=== PATIENT | male | born 1975 | race African-American/Black ===

== ENCOUNTER 2016-08-19 17:02 | Emergency (ER) | payer SELFPAY ==
[2016-08-19] MEDS ORDERED: NORMAL SALINE 1000 ML 1,000 ML IV PRN (17:12)
--- NOTE | 2016-08-19 17:14 | ER Document Report ---
ED Medical Screen (RME) - General Stated Complaint: BREATHING DIFFICULTY,BLOOD PRESSURE ISSUE Notes: Shortness of breath high blood pressure for several days I greeted and performed a rapid initial assessment of this patient. Comprehensive ED assessment and evaluation of the patient, analysis of test results and completion of the medical decision making process will be conducted by additional ED providers. TRAVEL OUTSIDE OF THE [place] IN LAST 30 DAYS: No - Related Data Allergies/Adverse Reactions: No Known Allergies Allergy (Verified 08/19/16 17:13) Past Medical History - Past Medical History Cardiac Medical History: Reports: Hx Hypertension Musculoskeltal Medical History: Denies Hx Arthritis, Denies Hx Gout - Immunizations Hx Diphtheria, Pertussis, Tetanus Vaccination: Yes Physical Exam - Vital signs Vitals: Temp Pulse Resp BP Pulse Ox 98.5 F 110 H 24 H 188/121 H 94 08/19/16 17:10 08/19/16 17:10 08/19/16 17:10 08/19/16 17:10 08/19/16 17:10 Course - Vital Signs Vital signs: Temp Pulse Resp BP Pulse Ox 98.5 F 110 H 24 H 188/121 H 94 08/19/16 17:10 08/19/16 17:10 08/19/16 17:10 08/19/16 17:10 08/19/16 17:10
[2016-08-19 17:47] LABS: APPEARANCE,URINE CLEAR; BILIRUBIN,URINE NEGATIVE (NEGATIVE); GLUCOSE, URINE NEGATIVE (NEGATIVE); KETONES,URINE NEGATIVE (NEGATIVE); LEUKOCYTE ESTERASE,URINE MODERATE (NEGATIVE); NITRITE,URINE NEGATIVE (NEGATIVE); PROTEIN,URINE 100 mg/dL (NEGATIVE); URINE SPECIFIC GRAVITY 1.003
[2016-08-19 17:50] LABS: ABSOLUTE BASOPHILS # (AUTO) 0.1 10^3/uL (0.0-0.2); ABSOLUTE EOSINOPHILS # (AUTO) 0.7 10^3/uL (0.0-0.6); ABSOLUTE LYMPHOCYTES (AUTO) 1.7 10^3/uL (0.5-4.7); ABSOLUTE MONOCYTES (AUTO) 1.3 10^3/uL (0.1-1.4); ABSOLUTE NEUT (AUTO) 3.9 10^3/uL (1.7-8.2); EOSINOPHILS % (AUTO) 8.8 % (0-6); HEMATOCRIT 42.8 % (37.9-51.0); HEMOGLOBIN 14.3 g/dL (13.5-17.0); HGB HCT DIFFERENCE 0.1; LYMPHOCYTES % (AUTO) 22.1 % (13-45); MEAN CORPUSCULAR HEMOGLOBIN 28.4 pg (27.0-33.4); MEAN CORPUSCULAR HGB CONC 33.4 g/dL (32.0-36.0); MEAN CORPUSCULAR VOLUME 85 fl (80-97); MONOCYTES % (AUTO) 17.3 % (3-13); RED BLOOD COUNT 5.04 10^6/uL (4.35-5.55); RED CELL DISTRIBUTION WIDTH 14.1 % (11.5-14.0); SEGMENTED NEUTROPHILS % (AUTO) 50.8 % (42-78); WHITE BLOOD COUNT 7.8 10^3/uL (4.0-10.5)
[2016-08-19 18:01] LABS: URINE BARBITURATES SCREEN NEGATIVE; URINE METHADONE SCREEN NEGATIVE; URINE PHENCYCLIDINE SCREEN NEGATIVE
[2016-08-19 18:02] LABS: ALANINE AMINOTRANSFERASE 63 U/L (21-72); ALKALINE PHOSPHATASE 91 U/L (38-126); ANION GAP 14 (5-19); ASPARTATE AMINO TRANSFERASE 68 U/L (17-59); BILIRUBIN,TOTAL 1.1 mg/dL (0.2-1.3); BLOOD UREA NITROGEN 7 mg/dL (7-20); CALCIUM 8.6 mg/dL (8.4-10.2); CARBON DIOXIDE 33 mmol/L (22-30); CHLORIDE 95 mmol/L (98-107); CREATININE RESULT 0.87 mg/dL (0.52-1.25); GLUCOSE 100 mg/dL (75-110); LIPASE 58.8 U/L (23-300); POTASSIUM 3.7 mmol/L (3.6-5.0); SODIUM 141.6 mmol/L (137-145); TOTAL PROTEIN 8.4 g/dL (6.3-8.2)
[2016-08-19] MEDS ORDERED: LEVOFLOXACIN 750 MG TABLET PO ONE (18:19)
[2016-08-19] MEDS ORDERED: IPRATROPIUM/ALBUTEROL 0.5-2.5 MG/3 ML AMPUL NEB ONE (18:19)
[2016-08-19] MEDS ORDERED: ALBUTEROL SULFATE 0.083% NEB 2.5 MG/3 ML AMPUL NEB ONE ×2 (18:19→20:02)
--- NOTE | 2016-08-19 18:21 | ER Document Report ---
ED Respiratory Problem - General Chief Complaint: Shortness Of Breath Stated Complaint: BREATHING DIFFICULTY,BLOOD PRESSURE ISSUE Time seen by provider: 18:21 Mode of Arrival: Ambulatory Information source: Patient TRAVEL OUTSIDE OF THE [place] IN LAST 30 DAYS: No - HPI Patient complains to provider of: Cough, Hurts to breath, Short of breath Onset: Other - 3 days Duration: Worse/persistent Quality of pain: Achy Severity: Moderate Pain Level: 3 Short of Breath: Mild Chest pain/discomfort: Tightness Cough: Productive Sputum amount: Small Sputum color: Yellow Sputum consistency: Mucoid Associated symptoms: Chills, Congestion, Cough, Difficulty breathing, Fever - Subjective, Short of breath Similar symptoms previously: No Recently seen / treated by doctor: No Notes: Patient is a 41-year-old male with no diagnosed past medical history, who quit smoking approximately one year ago, presents to the emergency room for complaints of cough, cold, congestion, difficulty breathing, chest tightness and subjective fevers that's been going on for the past 2-3 days, patient reports his cough is productive of yellow sputum at times, reports nasal congestion and chest congestion with painful cough, he denies any sick contacts , no recent traveling, no history of coronary artery disease - Related Data Allergies/Adverse Reactions: No Known Allergies Allergy (Verified 08/19/16 17:13) Past Medical History - General Information source: Patient - Social History Smoking Status: Former Smoker Chew tobacco use (# tins/day): No Frequency of alcohol use: None Drug Abuse: None Family History: Reviewed & Not Pertinent Patient has suicidal ideation: No Patient has homicidal ideation: No - Past Medical History Cardiac Medical History: Reports: Hx Hypertension Renal/ Medical History: Denies: Hx Peritoneal Dialysis Musculoskeltal Medical History: Denies Hx Arthritis, Denies Hx Gout - Immunizations Hx Diphtheria, Pertussis, Tetanus Vaccination: Yes Review of Systems - Review of Systems Constitutional: See HPI EENT: No symptoms reported Cardiovascular: No symptoms reported Respiratory: See HPI Gastrointestinal: No symptoms reported Genitourinary: No symptoms reported Male Genitourinary: No symptoms reported Musculoskeletal: No symptoms reported Skin: No symptoms reported Hematologic/Lymphatic: No symptoms reported Neurological/Psychological: No symptoms reported -: Yes All other systems reviewed and negative Physical Exam - Vital signs Vitals: Temp Pulse Resp BP Pulse Ox 98.5 F 110 H 24 H 188/121 H 94 08/19/16 17:10 08/19/16 17:10 08/19/16 17:10 08/19/16 17:10 08/19/16 17:10 Interpretation: Hypertensive, Tachycardic, Tachypneic - General General appearance: Appears well, Alert - HEENT Head: Normocephalic, Atraumatic Eyes: Normal Pupils: PERRL - Respiratory Respiratory status: Tachypnea Chest status: Nontender Breath sounds: Nonproductive cough, Rhonchi, Wheezing Chest palpation: Normal - Cardiovascular Rhythm: Regular Heart sounds: Normal auscultation Murmur: No - Abdominal Inspection: Obese Distension: No distension Bowel sounds: Normal Tenderness: Nontender Organomegaly: No organomegaly - Back Back: Normal, Nontender - Extremities General upper extremity: Normal inspection, Nontender, Normal color, Normal ROM , Normal temperature General lower extremity: Normal inspection, Nontender, Normal color, Normal ROM , Normal temperature, Normal weight bearing. No: Gael's sign - Neurological Neuro grossly intact: Yes Cognition: Normal Orientation: AAOx4 [place] Coma Scale Eye Opening: Spontaneous [place] Coma Scale Verbal: Oriented [place] Coma Scale Motor: Obeys Commands [place] Coma Scale Total: 15 Speech: Normal Motor strength normal: LUE, RUE, LLE, RLE Sensory: Normal - Psychological Associated symptoms: Normal affect, Normal mood - Skin Skin Temperature: Warm Skin Moisture: Dry Skin Color: Normal Course - Re-evaluation Re-evalutation: 08/19/16 21:32 Patient reports feeling much better, lungs are clear to auscultation, symptoms have improved significantly, I reviewed lab and imaging findings with him at bedside which are consistent with pneumonia and a urinary tract infection, patient likely has a history of COPD from being a former smoker which was agitated from the current infection he is experiencing, he does report feeling agitated that the IV is still in and that he is still here and states he is ready to go home, therefore he will be discharged with several prescriptions for treatment of his pneumonia and urinary tract infection, provided with an albuterol inhaler here in the emergency room, and information for follow-up, patient was advised to return if symptoms worsen in any way, patient acknowledges understanding and agreement with this plan - Vital Signs Vital signs: Temp Pulse Resp BP Pulse Ox 98.5 F 110 H 24 H 188/121 H 94 08/19/16 17:10 08/19/16 17:10 08/19/16 17:10 08/19/16 17:10 08/19/16 17:10 - Laboratory Result Diagrams: 08/19/16 17:20 08/19/16 17:20 Laboratory results interpreted by me: 08/19/16 08/19/16 08/19/16 17:20 17:20 17:20 RDW 14.1 H Monocytes % 17.3 H Eosinophils % 8.8 H Absolute Eosinophils 0.7 H Chloride 95 L Carbon Dioxide 33 H AST 68 H NT-Pro-B Natriuret Pep Total Protein 8.4 H Urine Protein 100 H Urine Blood SMALL H Urine Urobilinogen 2.0 H Ur Leukocyte Esterase MODERATE H 08/19/16 17:20 RDW Monocytes % Eosinophils % Absolute Eosinophils Chloride Carbon Dioxide AST NT-Pro-B Natriuret Pep 270 H Total Protein Urine Protein Urine Blood Urine Urobilinogen Ur Leukocyte Esterase - Diagnostic Test Radiology reviewed: Image reviewed, Reports reviewed - EKG Interpretation by Me EKG shows normal: Sinus rhythm Rate: Tachycardia When compared to previous EKG there are: No significant change - 05/20/2015 Discharge - Discharge Clinical Impression: Pneumonia Qualifiers: Pneumonia type: due to unspecified organism Laterality: right Lung location: middle lobe of lung Qualified Code(s): J18.1 - Lobar pneumonia, unspecified organism Urinary tract infection Qualifiers: Urinary tract infection type: site unspecified Hematuria presence: without hematuria Qualified Code(s): N39.0 - Urinary tract infection, site not specified Hypertension Qualifiers: Hypertension type: essential hypertension Qualified Code(s): I10 - Essential ( primary) hypertension Condition: Stable Disposition: HOME, SELF-CARE Instructions: Urinary Tract Infection ([facility]), High Blood Pressure, Requiring Treatment ([facility]), High Blood Pressure ([facility]), Pneumonia ([facility]), Chronic Obstructive Lung Disease ([facility]), Family Physicians / Practices Additional Instructions: Follow up with your primary care provider in one to 2 days. Return to the emergency room immediately if symptoms worsen or any additional concerns. Prescriptions: Albuterol Sulfate [Proair HFA Inhalation Aerosol 8.5 gm MDI] 1 puff IH Q4 PRN # 1 mdi PRN Reason: Hydrochlorothiazide 25 mg PO DAILY #30 tablet Levofloxacin [Levaquin] 750 mg PO DAILY #7 tablet Prednisone 40 mg PO DAILY #8 tablet
[2016-08-19] MEDS ORDERED: METHYLPREDNISOLONE INJ 125 MG/2 ML SDV IV ONE (20:02)
[2016-08-19] MEDS ORDERED: BENZONATATE 100 MG CAPSULE PO ONE (20:40)
[2016-08-19] MEDS ORDERED: ALBUTEROL SULFATE HFA (90 MCG/PUFF) 8 GM MDI (1 MDI/ER DISP) IH SCH (22:00)
[2016-08-19 22:04] VITALS: BP 178/113
--- NOTE | 2016-08-20 10:16 | EKG REPORT ---
SEVERITY:- ABNORMAL ECG - SINUS TACHYCARDIA PROBABLE LEFT ATRIAL ABNORMALITY BORDERLINE R WAVE PROGRESSION, ANTERIOR LEADS BORDERLINE T ABNORMALITIES, INFERIOR LEADS BORDERLINE PROLONGED QT INTERVAL : Confirmed by: Lesley Shipman MD 20-Aug-2016 10:15:28
== END 2016-08-19 21:55 | disposition home or self-care (01) ==
LOC: ER 17:02
DX: J18.1 Lobar pneumonia, unspecified organism (principal); N39.0 Urinary tract infection, site not specified; I10 Essential (primary) hypertension; R06.02 Shortness of breath; R06.00 Dyspnea, unspecified; E66.9 Obesity, unspecified
CPT/HCPCS: 93005; 94640 ×2; 99285; 96374; 36415; 87040; 83690; 85025; 80053; 81001; 84484; 80307; 83880; 71020; 93010; J2930; J7030; J3490; J7620

== ENCOUNTER 2016-09-21 10:36 | Inpatient (IN) | payer SELFPAY ==
--- NOTE | 2016-09-21 10:41 | ER Document Report ---
ED Medical Screen (RME) - General Stated Complaint: DIFFICULTY BREATHING Notes: Patient is a 41-year-old male who was recently diagnosed with lobar pneumonia back on 08/19/2016. Was discharged home on the Levaquin and prednisone. Patient to complete his course of antibiotics. Patient presents emergency department today complaining of shortness of breath since yesterday not responding to albuterol inhaler. He shouldn't is tachycardic in the 120s, satting 89-91% on room air. Lungs clear to auscultation bilaterally but limited examination due to triage. Patient labored breathing but able to speak in full sentences. Patient is alert and oriented 4. I have greeted and performed a rapid initial assessment of this patient. A comprehensive ED assessment and evaluation of the patient, analysis of test results and completion of the medical decision making process will be conducted by additional ED providers. TRAVEL OUTSIDE OF THE [place] IN LAST 30 DAYS: No - Related Data Allergies/Adverse Reactions: No Known Allergies Allergy (Verified 08/19/16 17:13) Past Medical History - Past Medical History Cardiac Medical History: Reports: Hx Hypertension Renal/ Medical History: Denies: Hx Peritoneal Dialysis Musculoskeltal Medical History: Denies Hx Arthritis, Denies Hx Gout - Immunizations Hx Diphtheria, Pertussis, Tetanus Vaccination: Yes
[2016-09-21] MEDS ORDERED: METHYLPREDNISOLONE INJ 125 MG/2 ML SDV IV ONE (10:42)
[2016-09-21] MEDS ORDERED: IPRATROPIUM/ALBUTEROL 0.5-2.5 MG/3 ML AMPUL NEB ONE (10:42)
[2016-09-21] MEDS ORDERED: ALBUTEROL SULFATE 0.083% NEB 2.5 MG/3 ML AMPUL NEB SCH (10:57)
[2016-09-21 11:21] LABS: VENOUS BLOOD BASE EXCESS 5.5 mmol/L; VENOUS BLOOD PCO2 53.4 mmHg (35-63); VENOUS BLOOD PH 7.4 (7.30-7.42)
[2016-09-21 11:24] LABS: ABSOLUTE BASOPHILS # (AUTO) 0.1 10^3/uL (0.0-0.2); ABSOLUTE EOSINOPHILS # (AUTO) 0.1 10^3/uL (0.0-0.6); ABSOLUTE LYMPHOCYTES (AUTO) 0.7 10^3/uL (0.5-4.7); ABSOLUTE MONOCYTES (AUTO) 1.4 10^3/uL (0.1-1.4); ABSOLUTE NEUT (AUTO) 6.6 10^3/uL (1.7-8.2); BASOPHILS % (AUTO) 0.8 % (0-2); EOSINOPHILS % (AUTO) 1.5 % (0-6); HEMATOCRIT 40.3 % (37.9-51.0); HEMOGLOBIN 13.6 g/dL (13.5-17.0); HGB HCT DIFFERENCE 0.5; LYMPHOCYTES % (AUTO) 7.3 % (13-45); MEAN CORPUSCULAR HEMOGLOBIN 28.3 pg (27.0-33.4); MEAN CORPUSCULAR HGB CONC 33.7 g/dL (32.0-36.0); MEAN CORPUSCULAR VOLUME 84 fl (80-97); MONOCYTES % (AUTO) 15.4 % (3-13); RED CELL DISTRIBUTION WIDTH 14.3 % (11.5-14.0); WHITE BLOOD COUNT 8.9 10^3/uL (4.0-10.5)
[2016-09-21 11:38] LABS: ALANINE AMINOTRANSFERASE 58 U/L (21-72); ALBUMIN 4.3 g/dL (3.5-5.0); ALKALINE PHOSPHATASE 82 U/L (38-126); ANION GAP 12 (5-19); ASPARTATE AMINO TRANSFERASE 64 U/L (17-59); BILIRUBIN,TOTAL 0.9 mg/dL (0.2-1.3); BLOOD UREA NITROGEN 11 mg/dL (7-20); CALCIUM 9.1 mg/dL (8.4-10.2); CARBON DIOXIDE 33 mmol/L (22-30); CHLORIDE 91 mmol/L (98-107); CREATININE RESULT 1.08 mg/dL (0.52-1.25); GLUCOSE 111 mg/dL (75-110); POTASSIUM 3.6 mmol/L (3.6-5.0); SODIUM 135.8 mmol/L (137-145); TOTAL PROTEIN 8.1 g/dL (6.3-8.2)
--- NOTE | 2016-09-21 11:40 | ER Document Report ---
ED Respiratory Problem - General Time seen by provider: 11:30 Mode of Arrival: Wheelchair Information source: Patient TRAVEL OUTSIDE OF THE [place] IN LAST 30 DAYS: No - HPI Associated symptoms: Cough, Difficulty breathing <KATHY HAMILTON - Last Filed: 09/21/16 12:10> <MAYILATRICE - Last Filed: 09/21/16 13:08> - General Chief Complaint: Breathing Difficulty Stated Complaint: DIFFICULTY BREATHING Notes: Patient is a 41-year-old male presenting to the emergency department with complaints of difficulty breathing. Patient states that he started coughing a few days ago and he progressively became more short of breath. Patient states he had some white sputum. Patient denies any asthma, COPD, CHF history. Patient states he does not smoke and has not used any drugs. Patinet also denies any chest pain. Patient states he is hypertensive. Patient was 89% oxygen saturation on room air upon arrival to the ED. During exam patient is tachycardic at 122 bmp, hypertensive 217/146, tachypneic, and has a low grade fever 99 F. Patient has no known allergies. (KATHY HAMILTON) - Related Data Allergies/Adverse Reactions: No Known Allergies Allergy (Verified 09/21/16 10:41) Past Medical History - General Information source: Patient - Social History Smoking Status: Never Smoker Cigarette use (# per day): No Chew tobacco use (# tins/day): No Frequency of alcohol use: None Drug Abuse: None Family History: None Patient has suicidal ideation: No Patient has homicidal ideation: No - Past Medical History Cardiac Medical History: Reports: Hx Hypertension - Immunizations Hx Diphtheria, Pertussis, Tetanus Vaccination: Yes <KATHY HAMILTON - Last Filed: 09/21/16 12:10> Review of Systems - Review of Systems Constitutional: No symptoms reported EENT: No symptoms reported Cardiovascular: No symptoms reported Respiratory: See HPI, Cough, Short of breath Gastrointestinal: No symptoms reported Genitourinary: No symptoms reported Male Genitourinary: No symptoms reported Musculoskeletal: No symptoms reported Skin: No symptoms reported Hematologic/Lymphatic: No symptoms reported Neurological/Psychological: No symptoms reported -: Yes All other systems reviewed and negative <KATHY HAMILTON - Last Filed: 09/21/16 12:10> Physical Exam - Vital signs Interpretation: Hypertensive - 217/146, Tachycardic - 122, Hypoxic, Tachypneic, Febrile - low grade fever 99 F - General General appearance: Alert In distress: Moderate - HEENT Head: Normocephalic, Atraumatic Eyes: Normal Pupils: PERRL Mucous membranes: Moist - Respiratory Respiratory status: No respiratory distress Chest status: Nontender Breath sounds: Normal Chest palpation: Normal - Cardiovascular Rhythm: Regular Heart sounds: Normal auscultation Murmur: No - Back Back: Normal, Nontender - Extremities General upper extremity: Normal inspection, Normal ROM, Normal strength General lower extremity: Edema - 2+ pitting edema bilaterally, Normal ROM, Normal strength - Neurological Neuro grossly intact: Yes Cognition: Normal Orientation: AAOx4 [place] Coma Scale Eye Opening: Spontaneous [place] Coma Scale Verbal: Oriented [place] Coma Scale Motor: Obeys Commands [place] Coma Scale Total: 15 Speech: Normal - Psychological Associated symptoms: Normal affect, Normal mood - Skin Skin Temperature: Warm Skin Moisture: Dry <KATHY HAMILTON - Last Filed: 09/21/16 12:10> Course - Laboratory Result Diagrams: 09/21/16 11:00 09/21/16 11:00 <KATHY HAMILTON - Last Filed: 09/21/16 12:10> - Laboratory Result Diagrams: 09/21/16 11:00 09/21/16 11:00 <LATRICE SEE - Last Filed: 09/21/16 13:08> - Re-evaluation Re-evalutation: 09/21/16 12:20 Patient presents complaining of sudden onset of shortness of breath last night. He says that it got worse throughout the night to the point where he felt like he couldn't breathe. He denies any chest pain. Patient states he has a history of hypertension and will receive some blood pressure medicine from an ER doctor. He does not have a primary doctor. The patient denies any fevers chills or sweats. He said yesterday he was coughing up some white phlegm. The patient denies any history of CHF. Denies any history of COPD or asthma. He quit smoking 2 years ago. He denies any history of heart attack or stroke. Patient is hypoxic with significantly elevated blood pressure. He is tachycardic. His lungs sound clear. I do not feel that this represents a COPD exacerbation. Patient's symptoms seem most consistent with hypertensive emergency with congestive heart failure. We will treat with nitrates and start patient on BiPAP. 09/21/16 12:58 09/21/16 13:[address] Cristi Gandhi who agrees patient should be admitted to the ICU. I spoke with the charge nurse as the patient was not started on the BiPAP just yet and they are working on that. Dr. Gandhi recommends hydralazine 10 mg IV as it sounds like the patient is in diastolic heart failure. We'll start this in the emergency department. (LATRICE SEE) - Laboratory Laboratory results interpreted by me: 09/21/16 09/21/16 09/21/16 11:00 11:00 11:00 RDW 14.3 H Lymphocytes % 7.3 L Monocytes % 15.4 H Sodium 135.8 L Chloride 91 L Carbon Dioxide 33 H Glucose 111 H AST 64 H NT-Pro-B Natriuret Pep 160 H (KATHY HAMILTON) (LATRICE SEE) - EKG Interpretation by Me Additional EKG results interpreted by me: 09/21/16 12:57 EKG: Heart rate 117, sinus tachycardia, normal axis, left ventricular hypertrophy, no ST elevations, flattening of ST segments in inferior and lateral leads, as interpreted by me. Compared to EKG of 08/19/16, no significant change. (LATRICE SEE) Discharge <KATHY HAMILTON - Last Filed: 09/21/16 12:10> - Discharge Admitting Provider: Hospitalist - Dr. Dusty Reyes Unit Admitted: ICU <LATRICE SEE - Last Filed: 09/21/16 13:08> - Discharge Clinical Impression: Hypertensive emergency Congestive heart failure (CHF) Qualifiers: Congestive heart failure type: combined Congestive heart failure chronicity: acute Qualified Code(s): I50.41 - Acute combined systolic (congestive) and diastolic (congestive) heart failure Respiratory failure Qualifiers: Chronicity: acute Respiratory failure complication: hypoxia Qualified Code(s): J96.01 - Acute respiratory failure with hypoxia Condition: Serious Disposition: ADMITTED INPATIENT Scribe Attestation: 09/21/16 12:23 I personally performed the services described in the documentation, reviewed and edited the documentation which was dictated to the scribe in my presence, and it accurately records my words and actions. (LATRICE SEE) Scribe Documentation - Scribe Written by Joyce:: Kathy Hamilton 09/21/16 12:07 acting as scribe for :: Naik <KATHY HAMILTON - Last Filed: 09/21/16 12:10>
[2016-09-21] MEDS ORDERED: ASPIRIN 81 MG TABLET, CHEWABLE PO ONE (11:44)
[2016-09-21] MEDS ORDERED: NITROGLYCERIN 2% OINTMENT 1 GM PACKET TP ONE (11:44)
[2016-09-21] MEDS: NITROGLYCERIN 0.4 MG/TAB 25 TAB/BOTTLE SL PRN ×3 (12:20→13:09)
--- NOTE | 2016-09-21 12:55 | EKG REPORT ---
SEVERITY:- ABNORMAL ECG - SINUS TACHYCARDIA CONSIDER LEFT VENTRICULAR HYPERTROPHY : Confirmed by: Mandy Stauffer 21-Sep-2016 12:55:12
[2016-09-21] MEDS ORDERED: HYDRALAZINE HCL INJ/PF 20 MG/1 ML SDV IV ONE (13:05)
[2016-09-21] MEDS ORDERED: ACETAMINOPHEN 325 MG TABLET PO ONE (13:12)
[2016-09-21] MEDS ORDERED: ACETAMINOPHEN 325 MG TABLET PO PRN (13:47)
[2016-09-21] MEDS ORDERED: ONDANSETRON 4 MG TAB.RAPDIS PO PRN (13:47)
[2016-09-21] MEDS ORDERED: ONDANSETRON HCL INJ/PF 4 MG/2 ML SDV IV PRN (13:47)
[2016-09-21] MEDS ORDERED: METOPROLOL SUCCINATE 50 MG TAB.SR.24H PO ONE (14:30)
[2016-09-21] MEDS ORDERED: REGADENOSON INJ 0.4 MG/5 ML DISP.SYRIN IV ONE (14:38)
--- NOTE | 2016-09-21 15:02 | PDOC H&P ---
History of Present Illness Admission Date/PCP: 09/21/16 14:35 Patient complains of: Shortness of breath History of Present Illness: NORBERTO CRISOSTOMO is a 41 year old male who has a history of hypertension who presents with sudden onset of shortness of breath. The patient reports that he woke up this morning felt short of breath and had a cough productive some white sputum. The patient presented to emergency room was found to have a blood pressure of 240/120. Patient denies to me that he is had any chest pain. The patient normally takes lisinopril/hydrochlorothiazide. He also does report having some orthopnea today. He denies any lower extremity edema. The patient denies any fevers or chills. Prior to this morning he has not had any problems with dyspnea on exertion or orthopnea or PND. Past Medical History Cardiac Medical History: Reports: Hypertension Pulmonary Medical History: Reports: None EENT Medical History: Reports: None Neurological Medical History: Reports: None Endocrine Medical History: Reports: None Renal/ Medical History: Reports: None Malignancy Medical History: Reports: None GI Medical History: Reports: None Musculoskeltal Medical History: Denies: Arthritis, Gout Skin Medical History: Reports: None Psychiatric Medical History: Reports: None Traumatic Medical History: Reports: None Hematology: Reports: None Infectious Medical History: Reports: None Past Surgical History Past Surgical History: Reports: None Social History Information Source: Patient Lives with: Spouse/Significant other Smoking Status: Never Smoker Frequency of Alcohol Use: Rare Hx Recreational Drug Use: No Drugs: None - Advance Directive Resuscitation Status: Full Code Surrogate healthcare decision maker:: Family History Family History: Mother 67 alive and has diabetes. Father's health history is unknown. Parental Family History Reviewed: Yes Children Family History Reviewed: No Sibling(s) Family History Reviewed.: No Medication/Allergy Home Medications: Oxycodone HCl/Acetaminophen [Percocet 5-325 mg Tablet] 1 - 2 tab PO Q4H PRN #15 tablet 05/20/15 Prednisone [Deltasone 10 mg Tablet] 10 mg PO ASDIR PRN #21 tablet 05/20/15 Clotrimazole [Lotrimin AF] 1 applic TP DAILY #1 cream..g. 08/10/15 Hydrocodone/Acetaminophen [[place] 5-325 mg Tablet] 1 tab PO Q6H PRN #10 tablet Lisinopril/Hydrochlorothiazide [Lisinopril-Hctz 20-12.5 mg Tab] 1 each PO DAILY #30 tablet 08/10/15 Prednisone [Deltasone 10 mg Tablet] 10 mg PO ASDIR PRN #21 tablet 08/10/15 Hydrocodone/Acetaminophen [[place] 7.5-325 Tablet] 1 each PO Q6 PRN #20 tablet 04/21 Ibuprofen [Motrin 800 Mg Tablet] 800 mg PO Q6H #20 tablet 02/12/16 Methocarbamol [Robaxin 500 Mg Tablet] 1,000 mg PO Q6 #30 tablet 02/12/16 Albuterol Sulfate [Proair HFA Inhalation Aerosol 8.5 gm MDI] 1 puff IH Q4 PRN # 1 mdi 08/19/16 Hydrochlorothiazide 25 mg PO DAILY #30 tablet 08/19/16 Levofloxacin [Levaquin] 750 mg PO DAILY #7 tablet 08/19/16 Prednisone 40 mg PO DAILY #8 tablet 08/19/16 Allergies/Adverse Reactions: No Known Allergies Allergy (Verified 09/21/16 10:41) Review of Systems Constitutional: ABSENT: chills, fever(s), headache(s), weight gain, weight loss Eyes: ABSENT: visual disturbances Ears: ABSENT: hearing changes Cardiovascular: PRESENT: as per HPI Respiratory: PRESENT: cough, dyspnea. ABSENT: hemoptysis Gastrointestinal: ABSENT: abdominal pain, constipation, diarrhea, hematemesis, hematochezia, nausea, vomiting Genitourinary: ABSENT: dysuria, hematuria Musculoskeletal: ABSENT: joint swelling Integumentary: ABSENT: rash, wounds Neurological: ABSENT: abnormal gait, abnormal speech, confusion, dizziness, focal weakness, syncope Psychiatric: ABSENT: anxiety, depression, homidical ideation, suicidal ideation Endocrine: ABSENT: cold intolerance, heat intolerance, polydipsia, polyuria Hematologic/Lymphatic: ABSENT: easy bleeding, easy bruising Physical Exam Vital Signs: Temp Pulse Resp BP Pulse Ox 20 97 09/21/16 13:30 09/21/16 13:30 General appearance: PRESENT: no acute distress Head exam: PRESENT: atraumatic, normocephalic Eye exam: PRESENT: conjunctiva pink, EOMI, PERRLA. ABSENT: scleral icterus Ear exam: PRESENT: normal external ear exam Mouth exam: PRESENT: moist, tongue midline Neck exam: ABSENT: carotid bruit, JVD, lymphadenopathy, thyromegaly Respiratory exam: PRESENT: clear to auscultation nitin. ABSENT: rales, rhonchi, wheezes Cardiovascular exam: PRESENT: RRR. ABSENT: diastolic murmur, rubs, systolic murmur Pulses: PRESENT: normal dorsalis pedis pul Vascular exam: PRESENT: normal capillary refill GI/Abdominal exam: PRESENT: normal bowel sounds, soft. ABSENT: distended, guarding, mass, organolmegaly, rebound, tenderness Rectal exam: PRESENT: deferred Extremities exam: ABSENT: calf tenderness, clubbing, pedal edema Neurological exam: PRESENT: alert, awake, oriented to person, oriented to place , oriented to time, oriented to situation Psychiatric exam: PRESENT: appropriate affect, normal mood Skin exam: PRESENT: dry, intact, warm. ABSENT: cyanosis, rash Results Impressions: Chest X-Ray 09/21/16 10:42 IMPRESSION: NO ACUTE RADIOGRAPHIC FINDING IN THE CHEST. Assessment & Plan - Diagnosis (1) Hypertensive emergency Is this a current diagnosis for this admission?: YesPlan: Patient has a history of hypertension but woke up this morning with acute onset of shortness of breath and given his elevated blood pressures is presumed to be acute diastolic dysfunction. We will start the patient on Toprol slow the heart rate and hopefully once the blood pressure comes down his shortness of breath will improve. (2) Congestive heart failure (CHF) Qualifiers: Congestive heart failure type: unspecified congestive heart failure type Congestive heart failure chronicity: acute Qualified Code(s): I50.9 - Heart failure, unspecified Is this a current diagnosis for this admission?: YesPlan: We'll check an echocardiogram. It's presumed that this is acute diastolic dysfunction given the uncontrolled hypertension. (3) Hypertension Qualifiers: Hypertension type: essential hypertension Qualified Code(s): I10 - Essential (primary) hypertension Is this a current diagnosis for this admission?: YesPlan: We'll continue with the lisinopril to chlorothiazide is taking as an outpatient at on Toprol and also give when necessary hydralazine. (4) Respiratory failure Qualifiers: Chronicity: acute Respiratory failure complication: hypoxia Qualified Code(s): J96.01 - Acute respiratory failure with hypoxia Is this a current diagnosis for this admission?: YesPlan: Set most likely secondary to acute hypertensive emergency. We'll continue the BiPAP until his blood pressure decreases. - Time Time Spent: 50 to 70 Minutes - Inpatient Certification Medical Necessity: Need Close Monitoring Due to Risk of Patient Decompensation
[2016-09-21] MEDS ORDERED: HYDRALAZINE HCL INJ/PF 20 MG/1 ML SDV IV PRN (15:37)
[2016-09-21] MEDS ORDERED: ENOXAPARIN SODIUM INJ 120 MG/0.8 ML DISP.SYRIN SUBCUT ONE (16:30)
[2016-09-21] MEDS: GUAIFENESIN/D-METHORPHAN (200-20 MG) SYRUP 10 ML PO PRN (17:02)
[2016-09-21 17:27] LABS: CREATINE KINASE MB 4.01 ng/mL (<4.55); TROPONIN I 0.087 ng/mL
--- NOTE | 2016-09-21 18:22 | XCELERA REPORT ---
[address] [address] Transthoracic Echocardiogram Report Name: NORBERTO CRISOSTOMO Age: 41 yrs Gender: Male : 1975 Patient Status: Inpatient Patient Location: \S\[facility]\S\A Study Date: 09/21/2016 03:12 PM Height: 65 in Weight: 260 lb BSA: 2.2 m2 Procedure: A two-dimensional transthoracic echocardiogram with color flow and Doppler was performed. Study Quality: Technically suboptimal. Reason For Study: DYSPNEA History: DYSPNEA. Ordering Physician: LARISA GRAY Performed By: Landry Patel Interpretation Summary The left ventricle is normal in size. There is normal left ventricular wall thickness. LV EF is > than 60% Left ventricular systolic function is normal. Doppler measurements suggest normal left ventricular diastolic function The left ventricular wall motion is normal. The right ventricle is not well visualized secondary to technical limitations The right ventricle is grossly normal size. The left atrial size is normal. There is no evidence of mitral valve prolapse. There is no vegetation seen on the mitral valve. There is no mitral valve stenosis. There is a mild amount of mitral regurgitation There is no aortic valve stenosis There is no LVOT obstruction. No aortic regurgitation is present. There is no tricuspid stenosis. Probably no TR.Unable to calculate RVSP due to insufficient TR jet. There is no pericardial effusion. MMode/2D Measurements \T\ Calculations RVDd: 2.5 cm LVIDd: 5.3 cm FS: 36.6 % Ao root diam: 3.1 cm IVSd: 1.0 cm LVIDs: 3.4 cm EDV(Teich): 137.4 ml LVPWd: 1.1 cm ESV(Teich): 46.8 ml Ao root area: 7.5 cm2 EF(Teich): 65.9 % LA dimension: 3.8 cm Doppler Measurements \T\ Calculations MV E max juan: MV P1/2t max juan: Ao V2 max: LV V1 max P.7 cm/sec 106.9 cm/sec 155.1 cm/sec 5.6 mmHg MV A max juan: MV P1/2t: 37.5 msec Ao max PG: LV V1 max: 70.7 cm/sec 9.6 mmHg 117.8 cm/sec MV E/A: 1.5 MVA(P1/2t): 5.9 cm2 MV dec slope: 835.0 cm/sec2 MV dec time: 0.13 sec PA V2 max: 113.5 cm/sec PA max P.2 mmHg Left Ventricle The left ventricle is normal in size. There is normal left ventricular wall thickness. LV EF is > than 60%. Left ventricular systolic function is normal. Doppler measurements suggest normal left ventricular diastolic function. The left ventricular wall motion is normal. There is no thrombus. Right Ventricle The right ventricle is not well visualized secondary to technical limitations. The right ventricle is grossly normal size. Atria The right atrium is normal. The left atrial size is normal. Mitral Valve There is no evidence of mitral valve prolapse. There is no vegetation seen on the mitral valve. There is no mitral valve stenosis. There is a mild amount of mitral regurgitation. Aortic Valve There is no aortic valvular vegetation. There is no aortic valve stenosis. There is no LVOT obstruction. No aortic regurgitation is present. Tricuspid Valve There is no tricuspid stenosis. Probably no TR.Unable to calculate RVSP due to insufficient TR jet. Pulmonic Valve There is no pulmonic valvular stenosis. There is no pulmonic valvular regurgitation. Great Vessels The aortic root is not well visualized. Effusions There is no pericardial effusion. : LARISA GRAY > Lesley Shipman
[2016-09-21] MEDS ORDERED: MORPHINE SULFATE 10 MG/ML INJ IV PRN (18:47)
[2016-09-21 23:47] LABS: CREATINE KINASE MB 6.13 ng/mL (<4.55); TROPONIN I 0.074 ng/mL
[2016-09-22 01:17] LABS: URINE BARBITURATES SCREEN NEGATIVE; URINE METHADONE SCREEN NEGATIVE; URINE OPIATES LOW NEGATIVE; URINE PHENCYCLIDINE SCREEN NEGATIVE
[2016-09-22 05:01] LABS: HEMATOCRIT 42.9 % (37.9-51.0); HEMOGLOBIN 14.5 g/dL (13.5-17.0); HGB HCT DIFFERENCE 0.6; MEAN CORPUSCULAR HEMOGLOBIN 28.8 pg (27.0-33.4); MEAN CORPUSCULAR HGB CONC 33.8 g/dL (32.0-36.0); MEAN CORPUSCULAR VOLUME 85 fl (80-97); RED BLOOD COUNT 5.02 10^6/uL (4.35-5.55); RED CELL DISTRIBUTION WIDTH 14.4 % (11.5-14.0); WHITE BLOOD COUNT 8.4 10^3/uL (4.0-10.5)
[2016-09-22 05:14] LABS: ANION GAP 10 (5-19); BLOOD UREA NITROGEN 19 mg/dL (7-20); CALCIUM 8.9 mg/dL (8.4-10.2); CARBON DIOXIDE 34 mmol/L (22-30); CHLORIDE 95 mmol/L (98-107); CREATININE RESULT 0.91 mg/dL (0.52-1.25); GLUCOSE 126 mg/dL (75-110); POTASSIUM 4.2 mmol/L (3.6-5.0); SODIUM 138.5 mmol/L (137-145)
[2016-09-22 05:23] LABS: CREATINE KINASE 2073 U/L (55-170)
[2016-09-22 05:32] LABS: MAGNESIUM 1.2 mg/dL (1.6-2.3)
[2016-09-22 05:33] LABS: CREATINE KINASE MB 8.03 ng/mL (<4.55); TROPONIN I 0.062 ng/mL
[2016-09-22] MEDS: ENOXAPARIN SODIUM INJ 120 MG/0.8 ML DISP.SYRIN SUBCUT SCH ×2 (06:12→17:44)
[2016-09-22] MEDS: MAGNESIUM SULFATE/D5W 1 GM/100 ML RTUPB IV SCH ×2 (06:17→07:21)
[2016-09-22] MEDS ORDERED: ENOXAPARIN SODIUM INJ 40 MG/0.4 ML DISP.SYRIN SUBCUT SCH (08:00)
[2016-09-22] MEDS ORDERED: (PENDING PHARMACY ID) (Lisinopril/Hydrochlorothiazide [Lisinopril-Hctz 20-12.5 Mg Tab] 1 E PO SCH (10:00)
[2016-09-22] MEDS: HYDROCHLOROTHIAZIDE 12.5 MG CAPSULE PO SCH (10:21)
[2016-09-22] MEDS: GUAIFENESIN/D-METHORPHAN (200-20 MG) SYRUP 10 ML PO PRN ×2 (10:21→17:43)
[2016-09-22] MEDS: ASPIRIN 325 MG TABLET, ENT COATED PO SCH (10:21)
[2016-09-22] MEDS: METOPROLOL SUCCINATE 50 MG TAB.SR.24H PO SCH (10:22)
[2016-09-22] MEDS: LISINOPRIL 10 MG TABLET PO SCH (10:22)
--- NOTE | 2016-09-22 10:38 | PDOC PROGRESS REPORT ---
Subjective Progress Note for:: 09/22/16 Subjective:: Patient reports that his breathing is doing better but he still feels somewhat short of breath. Physical Exam Vital Signs: Temp Pulse Resp BP Pulse Ox 98.7 F 91 18 130/80 H 96 09/22/16 07:25 09/22/16 07:25 09/22/16 07:25 09/22/16 07:25 09/22/16 08:05 Intake & Output 09/21/16 09/22/16 09/23/16 06:59 06:59 06:59 Intake Total 405 Output Total 2500 0 Balance -2095 0 Weight 122.3 kg General appearance: PRESENT: no acute distress Eye exam: PRESENT: conjunctiva pink. ABSENT: scleral icterus Mouth exam: PRESENT: moist, tongue midline Neck exam: ABSENT: JVD Respiratory exam: PRESENT: rhonchi - Few scattered rhonchi. ABSENT: rales, wheezes Cardiovascular exam: PRESENT: RRR. ABSENT: diastolic murmur, rubs, systolic murmur GI/Abdominal exam: PRESENT: normal bowel sounds, soft. ABSENT: distended, guarding, mass, organolmegaly, rebound, tenderness Extremities exam: ABSENT: calf tenderness, clubbing, pedal edema Neurological exam: PRESENT: alert, awake, oriented to person, oriented to place , oriented to time, oriented to situation Skin exam: PRESENT: dry, intact, warm. ABSENT: cyanosis, rash Results Laboratory Results: 09/22/16 04:44 09/22/16 04:44 09/22/16 09/22/16 04:44 04:44 WBC 8.4 RBC 5.02 Hgb 14.5 Hct 42.9 MCV 85 MCH 28.8 MCHC 33.8 RDW 14.4 H Plt Count 226 Sodium 138.5 Potassium 4.2 Chloride 95 L Carbon Dioxide 34 H Anion Gap 10 BUN 19 Creatinine 0.91 Est GFR ( Amer) > 60 Est GFR (Non-Af Amer) > 60 Glucose 126 H Calcium 8.9 Magnesium 1.2 L* 09/21/16 09/21/16 09/21/16 16:45 16:45 23:08 Creatine Kinase 1499 H 1516 H CK-MB (CK-2) 4.01 Troponin I 0.087 09/21/16 09/22/16 09/22/16 23:08 04:44 04:44 Creatine Kinase 2073 H CK-MB (CK-2) 6.13 H 8.03 H Troponin I 0.074 0.062 Impressions: Chest X-Ray 09/21/16 10:42 IMPRESSION: NO ACUTE RADIOGRAPHIC FINDING IN THE CHEST. Assessment & Plan - Diagnosis (1) Hypertensive emergency Is this a current diagnosis for this admission?: YesPlan: Patient has a history of hypertension but woke up this morning with acute onset of shortness of breath and given his elevated blood pressures is presumed to be acute diastolic dysfunction. The patient is feeling better and his blood pressures have improved. The patient had an echocardiogram done yesterday which showed no evidence for diastolic dysfunction. (2) Congestive heart failure (CHF) Qualifiers: Congestive heart failure type: unspecified congestive heart failure type Congestive heart failure chronicity: acute Qualified Code(s): I50.9 - Heart failure, unspecified Is this a current diagnosis for this admission?: YesPlan: Echocardiogram showed a normal ejection fraction with no evidence for diastolic dysfunction. Given his symptoms consistent with congestive heart failure get the above echocardiogram findings will ask cardiology to evaluate for their opinion. Patient did have mildly elevated troponins most likely secondary to uncontrolled hypertension but will have cardiology evaluate also. (3) Hypertension Qualifiers: Hypertension type: essential hypertension Qualified Code(s): I10 - Essential (primary) hypertension Is this a current diagnosis for this admission?: YesPlan: We'll continue with the lisinopril, hydrochlorothiazide, Toprol. (4) Respiratory failure Qualifiers: Chronicity: acute Respiratory failure complication: hypoxia Qualified Code(s): J96.01 - Acute respiratory failure with hypoxia Is this a current diagnosis for this admission?: YesPlan: Set most likely secondary to acute hypertensive emergency. This has improved with improvement of his blood pressures. - Time Time Spent with patient: 25-34 minutes - Inpatient Certification Medical Necessity: Need Close Monitoring Due to Risk of Patient Decompensation - Plan Summary Plan Summary: Cardiology has been asked to see the patient today.
--- NOTE | 2016-09-22 12:41 | EKG REPORT ---
SEVERITY:- ABNORMAL ECG - SINUS RHYTHM CONSIDER ANTEROSEPTAL INFARCT BORDERLINE T ABNORMALITIES, INFERIOR LEADS BORDERLINE PROLONGED QT INTERVAL : Confirmed by: Mandy Stauffer 22-Sep-2016 12:41:03
[2016-09-22 22:10] LABS: APPEARANCE,URINE CLEAR; BILIRUBIN,URINE NEGATIVE (NEGATIVE); GLUCOSE, URINE NEGATIVE (NEGATIVE); KETONES,URINE NEGATIVE (NEGATIVE); LEUKOCYTE ESTERASE,URINE NEGATIVE (NEGATIVE); NITRITE,URINE NEGATIVE (NEGATIVE); PROTEIN,URINE NEGATIVE (NEGATIVE); URINE SPECIFIC GRAVITY 1.032; UROBILINOGEN,URINE NEGATIVE mg/dL (<2.0)
--- NOTE | 2016-09-22 23:18 | CONSULTATION REPORT E ---
Consultation Report NAME: NORBERTO CRISOSTOMO : 1975 AGE: 41Y DATE: 09/22/2016 302 A TO: LIEN OSWALD M.D. FROM: Requesting Physician REASON FOR CONSULTATION: Elevated CPK and CPK-MB with indeterminate troponin I and hypertensive emergency with shortness of breath and hypoxia. HISTORY OF PRESENT ILLNESS: The patient is a 41-year-old Afro [place] male with known history of hypertension, morbid obesity, and history of anxiety and depression, who states that he woke up suddenly yesterday morning with acute shortness of breath. He also had some cough productive of white sputum. He states he became so anxious, he does not remember if he had chest pain or discomfort; hence, a CT of the chest was ordered to rule out an aneurysm. At present the patient states that his shortness of breath is much better. Note, when the patient came in, his blood pressure was 240/120 and also his CPK and CPK-MB were elevated with indeterminate troponin I. The patient did complain of muscle weakness. His potassium was normal but his magnesium was 1.2. He denies any palpitations, wheezing, PND, orthopnea or leg edema. There are no TIA or CVA symptoms. Past medical history is positive for hypertension. There is no history of diabetes mellitus, no history of TIA or CVA, no history of thyroid disorder, no history of headaches, migraines or seizures. There is no history of pulmonary embolism. There is no history of coronary artery disease, TN or anginal symptoms. Although the patient had shortness of breath, the chest x-ray and the CTA does not show any heart failure. His shortness of breath may be a combination of uncontrolled hypertension, muscle weakness secondary to hypomagnesemia, and possible bronchitis causing hypoxia. PAST MEDICAL HISTORY: Positive for history of hypertension. No history of chronic kidney disease. No history of arthritis or gout. No history of syncope or palpitations. There is no history of GI bleed. No history of symptoms of UTI. He also has a history of anxiety and depression and also has had panic attacks. The patient states he has arthritis of the shoulders, right greater than left and is not able to lift his right upper extremity much and he can raise his left upper extremity up to the level of the shoulder but cannot lift it over that. 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 PAST SURGICAL HISTORY: Positive for circumcision. REVIEW OF SYSTEMS: CONSTITUTIONAL: He denies any fever, chills or rigors. Head: Denies any headaches or head injury. No dizziness. HEENT: Eyes: History of amblyopia, amaurosis fugax or visual disturbances. No history of glaucoma. Ears: No history of hearing loss, no history of tinnitus, no history of recurrent ear infections. Nose: No history of nose bleeds, no history of nasal polyps, no history of hay fever. Mouth: No history of altered taste sensation, no history of ulcers in the mouth, no bleeding from the gums. Throat: No history of odynophagia or dysphagia. No history of recurrent sore throats. SKIN: No history of psoriasis. No history of pruritus. No history of skin cancer. NECK: The patient denies history of goiter but his CTA shows diffuse thyromegaly. No history of lymphadenopathy. LUNGS: No history of asthma or COPD, but the patient has been having cough productive of white sputum without any wheezing. No history of pulmonary embolism. The patient has some symptoms suggestive of sleep apnea, but he has not had a sleep study. No hemoptysis. No pleuritic chest pain. CARDIAC: History of hypertension. The patient's blood pressure was 240/120 and the patient had shortness of breath. There is no prior history of congestive heart failure. No history of palpitations or syncope. No history of TN or anginal symptoms or coronary artery disease. No history of leg edema. MUSCULOSKELETAL: Arthritis as mentioned earlier, right shoulder greater than left shoulder and also intermittent swelling of the right knee. He has no history of collagen vascular disease. GASTROINTESTINAL: History of GERD. No history of GI bleed. No history of fatty food intolerance. No history of nausea or vomiting. Appetite is good. No history of melena or hematochezia. RENAL: No history of chronic kidney disease. No symptoms of enlarged prostate. No symptoms of UTI. No history of hematuria, polyuria or dysuria. CENTRAL NERVOUS SYSTEM: No history of TIA or CVA. No history of sleep apnea by sleep study, but the patient does have symptoms suggestive of sleep apnea. He has no history of headaches, migraines or seizures. PSYCHIATRIC: History of anxiety, panic attacks and depression. No suicidal ideation. VASCULAR: No history of calf or buttock claudication. No history of DVT. HEMATOLOGICAL: No history of bleeding diathesis. No history of clotting disorders. ALLERGIES: No known allergies. FAMILY HISTORY: Mother had diabetes mellitus, hypertension, and coronary artery disease/myocardial infarction. MEDICATIONS: 1. Tylenol 650 mg p.o. q.4 h. p.r.n. 2. Aspirin 325 mg p.o. daily. 3. Lovenox 120 mg subcutaneously q.12 h. 4. Guaifenesin/methorphan 10 mL p.o. q.i.d. p.r.n. 5. Hydralazine 10 mg IV q.6 h. p.r.n. 6. Hydrochlorothiazide 12.5 mg p.o. daily. 7. Lisinopril 20 mg p.o. daily. 8. Metoprolol succinate 50 mg p.o. daily. 9. Morphine sulfate 2 mg IV q.4 h. p.r.n. 10. Nitroglycerin 1 tablet sublingual every 5 minutes p.r.n. 11. Zofran 4 mg q.6 h. p.r.n. and Zofran 4 mg IV q.8 h. p.r.n. DISPOSITION: The patient is a FULL CODE. His is his surrogate healthcare decision maker. SOCIAL HISTORY: The patient does not smoke. There is no history of EtOH abuse. PHYSICAL EXAMINATION: GENERAL: Patient is morbidly obese, at present in no acute distress. VITAL SIGNS: His temperature is 99.7 degrees Fahrenheit. Pulse yesterday was 125 with a blood pressure of 235/108. Today the patient is afebrile with a temperature of 98.4 degrees Fahrenheit, pulse is 89 beats per minute, blood pressure 125/72, respirations 20 per minute, O2 sats are 95% on 2 L nasal cannula. HEENT: Head is atraumatic, normocephalic. Eyes: Pupils are equal, round, regular, reactive to light and accommodation. There is no conjunctival pallor. There is no scleral icterus. Extraocular movements are normal. Ears: Tympanic membranes are intact. External auditory canals are clear. Nose: There is no deviated nasal septum. There is no inflammation of the nasal mucous membranes. Mouth: Mucous membranes of the mouth are moist. Tongue is moist. There are no ulcers. There is no bleeding from the gums. Throat: There is no redness of the oropharynx. There are no pharyngeal exudates or tonsillar exudates. SKIN: There are no skin rashes. There is no petechia or ecchymosis. There are no skin lesions. NECK: Supple. There is some diffuse enlargement of the thyroid. There is no lymphadenopathy. Carotids are equal. There is no bruit. Trachea is central. LUNGS: Clear to auscultation and percussion. HEART: S1 and S2 are heard. There is a S4 gallop present. There is no S3 gallop. There is a systolic murmur in the left sternal border and the apex. There is no rub. ABDOMEN: Soft, obese, nontender. There is no hepatosplenomegaly. Bowel sounds are well heard. There are no tender areas or masses. EXTREMITIES: Femorals are deep. Femorals are diminished. There are no femoral bruits. Leg pulses are mildly diminished. There is no pedal edema. There is no DVT or cellulitis. There is no cyanosis or clubbing. There is no calf tenderness. CENTRAL NERVOUS SYSTEM: The patient is conscious, awake, alert, oriented x3 with no focal deficits. PSYCHIATRIC: The patient's judgment and insight are intact. His affect is normal. DIAGNOSTIC TEST RESULTS: The patient's chest x-ray shows no evidence of infiltrates and no gross pulmonary edema, normal vasculature. Heart normal in size. No pleural effusion. No pneumothorax. No dense consolidation worrisome for pneumonia. The patient's EKG shows sinus rhythm, left ventricular hypertrophy. The patient's echocardiogram shows normal left ventricular chamber size. There is no LVH. The LV ejection fraction is greater than 60%. Left ventricular systolic function is normal. Doppler measurements suggest normal left ventricular diastolic function. Left ventricular wall motion is normal. There right ventricle is not well visualized secondary to technical limitations. The right ventricle is grossly normal in size. The left atrium is normal. There is no evidence of mitral valve prolapse. There is no vegetation seen on the mitral valve. There is no mitral valve stenosis with mild amount of mitral regurgitation. There is no aortic valve stenosis. There is no LVOT obstruction. There is no aortic regurgitation. There is no tricuspid stenosis and probably no TR. Unable to calculate RVSP due to *------* TR jet. There is no pericardial effusion. The chest and abdomen CAT shows no evidence of pulmonary embolism. There is bibasilar band-like atelectasis. The remainder of the lung sharma is clear. No pulmonary effusion, no pneumothorax, no pulmonary embolism, no aneurysm or dissection. There is diffuse thyromegaly, question thyroiditis. The patient's white count is 8400. The patient's RBC is 5.02. The patient's hemoglobin is 14.5, hematocrit is 42.9, and platelet count is 226,000. The patient's urine opiate screen, urine methadone screen, urine barbiturate screen, urine phencyclidine screen, urine amphetamine screen, urine benzodiazepine screen, urine cocaine screen, and urine marijuana screen are all normal. The patient's sodium is 138.5, potassium 4.2, chloride 95, CO2 34, BUN 19, creatinine 0.91, GFR is greater than 60. His calcium is 8.9, his magnesium is 1.2. The patient's CPK was 1499, his NT-proBNP is 160. The patient's subsequent CPK-MB was 1516 and subsequently 2073. His CPK-MB is elevated at 6.13 and 8.03. His troponin I is indeterminate/negative at 0.287, 0.074, 0.062. IMPRESSION: 1. Hypertensive emergency. 2. Rhabdomyolysis secondary to hypomagnesemia. 3. This rhabdomyolysis is the cause of the patient's elevated CPK and CPK-MB. 4. No evidence of TN. 5. Hypomagnesemia causing muscle weakness. 6. Anxiety and history of panic attacks. 7. Depression. 8. Hypomagnesemia causing muscle weakness. 9. Hypoxemia and increased respiratory rate most likely secondary to bronchitis and muscle weakness causing decreased respiratory effort and uncontrolled hypertension. No evidence of emelyn congestive heart failure, systolic or diastolic. 10. Morbid obesity. 11. Thyromegaly, question thyroiditis. 12. Right greater than left shoulder arthritis. 13. Possible bronchitis. RECOMMENDATIONS: Agree with replacing the patient's magnesium. Would hydrate the patient. Would stop the patient's full dose Lovenox. Increase lisinopril and increase the dose as tolerated and would stop the patient's hydrochlorothiazide. Would check the patient's aldosterone level and renin activity and angiotensin/renin ratio in view of the patient's hypertension and hypomagnesemia. Would also place the patient on anti-anxiolytic agents. Continue the patient on metoprolol along with lisinopril but would stop the hydrochlorothiazide. Later the patient should have a sleep study and later as an outpatient, the patient could have an IV Lexiscan and Cardiolite stress test. Note: Forty-five minutes spent on this patient with more than 50% of the time spent on direct patient care and also discussions with the hospitalist taking care of the patient and also reviewing the medications and suggesting revision of medications. Will follow with you. Thanking you. Note: The CT scan, EKG findings, the lab results, and the patient's chest x-ray findings were all discussed with patient in detail. DICTATING PHYSICIAN: LIEN OSWALD M.D. [id number] PHY#: [id number] ID: [id number] JOB#: [id number] ACCT: [id number] cc:LIEN OSWALD M.D. >
[2016-09-23 05:04] LABS: ABSOLUTE NEUT (AUTO) 2.9 10^3/uL (1.7-8.2); BASOPHILS % (AUTO) 0.4 % (0-2); EOSINOPHILS % (AUTO) 0.1 % (0-6); HEMATOCRIT 42.8 % (37.9-51.0); HEMOGLOBIN 14.3 g/dL (13.5-17.0); HGB HCT DIFFERENCE 0.1; LYMPHOCYTES % (AUTO) 34.6 % (13-45); MEAN CORPUSCULAR HEMOGLOBIN 28.4 pg (27.0-33.4); MEAN CORPUSCULAR HGB CONC 33.4 g/dL (32.0-36.0); MEAN CORPUSCULAR VOLUME 85 fl (80-97); MONOCYTES % (AUTO) 16.2 % (3-13); RED BLOOD COUNT 5.04 10^6/uL (4.35-5.55); RED CELL DISTRIBUTION WIDTH 14.9 % (11.5-14.0); SEGMENTED NEUTROPHILS % (AUTO) 48.7 % (42-78); WHITE BLOOD COUNT 5.9 10^3/uL (4.0-10.5)
[2016-09-23 05:22] LABS: ANION GAP 12 (5-19); BLOOD UREA NITROGEN 30 mg/dL (7-20); CARBON DIOXIDE 30 mmol/L (22-30); CHLORIDE 95 mmol/L (98-107); GLUCOSE 97 mg/dL (75-110); MAGNESIUM 1.6 mg/dL (1.6-2.3); POTASSIUM 4.1 mmol/L (3.6-5.0); SODIUM 136.8 mmol/L (137-145)
[2016-09-23] MEDS: METOPROLOL SUCCINATE 50 MG TAB.SR.24H PO SCH (10:20)
[2016-09-23] MEDS: HYDROCHLOROTHIAZIDE 12.5 MG CAPSULE PO SCH (10:20)
[2016-09-23] MEDS: LISINOPRIL 10 MG TABLET PO SCH (10:20)
[2016-09-23] MEDS: ASPIRIN 325 MG TABLET, ENT COATED PO SCH (10:20)
--- NOTE | 2016-09-23 14:23 | PDOC PROGRESS REPORT ---
Subjective Progress Note for:: 09/23/16 Subjective:: Patient reports that his breathing is doing better. The patient is noted have a fever of 101 overnight. The patient became hypoxic with a saturation down to 88% when he was off of oxygen today. Physical Exam Vital Signs: Temp Pulse Resp BP Pulse Ox 100.4 F 91 19 107/57 L 93 09/23/16 11:33 09/23/16 11:33 09/23/16 11:33 09/23/16 11:33 09/23/16 13:24 Intake & Output 09/22/16 09/23/16 09/24/16 06:59 06:59 06:59 Intake Total 405 1942 474 Output Total 2500 2250 400 Balance -2094 -308 74 Weight 122.3 kg 122.3 kg General appearance: PRESENT: no acute distress Eye exam: PRESENT: conjunctiva pink. ABSENT: scleral icterus Mouth exam: PRESENT: moist, tongue midline Neck exam: ABSENT: JVD Respiratory exam: PRESENT: clear to auscultation nitin. ABSENT: rales, rhonchi, wheezes Cardiovascular exam: PRESENT: RRR. ABSENT: diastolic murmur, rubs, systolic murmur GI/Abdominal exam: PRESENT: normal bowel sounds, soft. ABSENT: distended, guarding, mass, organolmegaly, rebound, tenderness Extremities exam: ABSENT: calf tenderness, clubbing, pedal edema Neurological exam: PRESENT: alert, awake, oriented to person, oriented to place , oriented to time, oriented to situation Psychiatric exam: PRESENT: appropriate affect Skin exam: PRESENT: dry, intact, warm. ABSENT: cyanosis, rash Results Laboratory Results: 09/23/16 03:53 09/23/16 03:53 09/22/16 09/22/16 09/23/16 14:08 21:50 03:53 WBC 5.9 RBC 5.04 Hgb 14.3 Hct 42.8 MCV 85 MCH 28.4 MCHC 33.4 RDW 14.9 H Plt Count 199 Seg Neutrophils % 48.7 Lymphocytes % 34.6 Monocytes % 16.2 H Eosinophils % 0.1 Basophils % 0.4 Absolute Neutrophils 2.9 Absolute Lymphocytes 2.0 Absolute Monocytes 1.0 Absolute Eosinophils 0.0 Absolute Basophils 0.0 Sodium Potassium Chloride Carbon Dioxide Anion Gap BUN Creatinine Est GFR ( Amer) Est GFR (Non-Af Amer) Glucose Calcium Magnesium Free T4 1.22 Urine Color YELLOW Urine Appearance CLEAR Urine pH 5.0 Ur Specific [place] 1.032 Urine Protein NEGATIVE Urine Glucose (UA) NEGATIVE Urine Ketones NEGATIVE Urine Blood NEGATIVE Urine Nitrite NEGATIVE Ur Leukocyte Esterase NEGATIVE Urine WBC (Auto) 7 Urine RBC (Auto) 1 09/23/16 03:53 WBC RBC Hgb Hct MCV MCH MCHC RDW Plt Count Seg Neutrophils % Lymphocytes % Monocytes % Eosinophils % Basophils % Absolute Neutrophils Absolute Lymphocytes Absolute Monocytes Absolute Eosinophils Absolute Basophils Sodium 136.8 L Potassium 4.1 Chloride 95 L Carbon Dioxide 30 Anion Gap 12 BUN 30 H Creatinine 1.10 Est GFR ( Amer) > 60 Est GFR (Non-Af Amer) > 60 Glucose 97 Calcium 9.0 Magnesium 1.6 Free T4 Urine Color Urine Appearance Urine pH Ur Specific [place] Urine Protein Urine Glucose (UA) Urine Ketones Urine Blood Urine Nitrite Ur Leukocyte Esterase Urine WBC (Auto) Urine RBC (Auto) 09/21/16 09/21/16 09/21/16 16:45 16:45 23:08 Creatine Kinase 1499 H 1516 H CK-MB (CK-2) 4.01 Troponin I 0.087 09/21/16 09/22/16 09/22/16 23:08 04:44 04:44 Creatine Kinase 2073 H CK-MB (CK-2) 6.13 H 8.03 H Troponin I 0.074 0.062 Impressions: Chest X-Ray 09/21/16 10:42 IMPRESSION: NO ACUTE RADIOGRAPHIC FINDING IN THE CHEST. Chest/Abdomen CTA 09/22/16 00:00 IMPRESSION: No CT angio evidence of acute pulmonary emboli or thoracic aortic dissection. Other findings as above. Results discussed with Dr. Reyes Assessment & Plan - Diagnosis (1) Hypertensive emergency Is this a current diagnosis for this admission?: YesPlan: Patient's blood pressures have improved and we will DC the Toprol just treat with lisinopril. The patient had an echocardiogram done which showed no evidence for diastolic dysfunction. Cardiology's input is greatly appreciated (2) Congestive heart failure (CHF) Qualifiers: Congestive heart failure type: unspecified congestive heart failure type Congestive heart failure chronicity: acute Qualified Code(s): I50.9 - Heart failure, unspecified Is this a current diagnosis for this admission?: YesPlan: Echocardiogram showed a normal ejection fraction with no evidence for diastolic dysfunction. Patient did have mildly elevated troponins and creatine kinase is. Cardiac she felt this most likely secondary to rhabdomyolysis because of hypomagnesemia. Patient is still hypoxic may have a component of bronchitis (3) Hypertension Qualifiers: Hypertension type: essential hypertension Qualified Code(s): I10 - Essential (primary) hypertension Is this a current diagnosis for this admission?: YesPlan: We'll continue with the lisinopril, Toprol and stop hydrochlorothiazide per cardiology's recommendations. (4) Respiratory failure Qualifiers: Chronicity: acute Respiratory failure complication: hypoxia Qualified Code(s): J96.01 - Acute respiratory failure with hypoxia Is this a current diagnosis for this admission?: YesPlan: Set most likely secondary to acute hypertensive emergency. This has improved with improvement of his blood pressures. He had a fever last night and continues to be hypoxic. We will check blood cultures and start on Zithromax for possible bronchitis. - Time Time Spent with patient: 25-34 minutes - Inpatient Certification Medical Necessity: Need Close Monitoring Due to Risk of Patient Decompensation
[2016-09-23] MEDS ORDERED: AZITHROMYCIN 250 MG TABLET PO ONE (15:00)
--- NOTE | 2016-09-23 22:48 | PROGRESS NOTE E ---
Progress Note NAME: NORBERTO CRISOSTOMO : 1975 AGE: 41Y DATE: 09/23/2016 ROOM: [facility] SUBJECTIVE: Note that the patient last night had a temperature of 101 degrees Fahrenheit. This morning his temperature is 100.4. The patient denies any shortness of breath or cough or sputum production. There is no PND or orthopnea, there is no leg edema, and there is no chest pain. There is no palpitations and there is no arrhythmia seen on the monitor. His 02 saturations on 2.5 L was 96%. The patient was taken off oxygen and was ambulated at which time his O2 saturation dropped to 83% and, hence, he was back on 3 L nasal O2 with O2 saturation of 96%. The possible diagnosis is bronchitis since the lungs are clear and, hence, patient has been started on Zithromax. OBJECTIVE: GENERAL: On examination, the patient is moderately obese but well groomed. VITAL SIGNS: His temperature is 100.4 degrees Fahrenheit. Pulse is 91 beats per minute, blood pressure is 107/57, respirations are 19 per minute and 02 sats are 96% on 2.5 L and subsequently 97% on 3 L with patient on ambulation on room air, dropped the saturation to 83%. HEENT: Head is atraumatic, normocephalic. Eyes: Pupils are equal, round, regular and reactive to light and accommodation. Extraocular movements are normal. There is no conjunctival pallor. There is no scleral icterus. ENT is negative. NECK: Supple. There is JVD. There is diffuse enlargement of the carotids. There is no lymphadenopathy. Carotids are equal. There is no bruit. Trachea is central. LUNGS: Clear to auscultation and percussion. HEART: S1 and S2 are heard. There is an S4 gallop present. There is no S3 gallop. There is a systolic murmur in the left sternal border and the apex. There is no rub. ABDOMEN: Soft, obese, nontender. There is no hepatosplenomegaly. Bowel sounds are well heard. There are no tender areas or masses. EXTREMITIES: Femorals are deep. Femorals are diminished. There are no femoral bruits. Leg pulses are mildly diminished. There is no pedal edema. There is no DVT or cellulitis. There is no cyanosis or clubbing. There is no calf tenderness. CENTRAL NERVOUS SYSTEM: The patient is conscious, awake, alert and oriented x3 with no focal deficits. PSYCHIATRIC: The patient's judgment and insight are intact. His affect is normal. DIAGNOSTIC DATA: The patient's white count is 5900, hemoglobin is 14.3, hematocrit is 42.8, and platelet count is 199,000. The patient's sodium is 136.8, potassium 4.1, chloride is 95, potassium 4.1, CO2 30, BUN 30, creatinine 1.10, GFR is greater than 60 and patient's glucose is 97. The patient's calcium is 9.0, magnesium is 1.6. IMPRESSION: 1. Hypertensive emergency, now resolved. Blood pressure is low normal range. 2. Rhabdomyolysis secondary to hypomagnesemia. Now magnesium corrected. 3. Rhabdomyolysis is a cause of the patient's elevated CPK and CPK-MB and also with indeterminate troponin I. 4. No evidence of IA. 5. Hypomagnesemia causing muscle weakness, now resolved. 6. Anxiety and history of panic attacks. 7. Depression. 8. Hypoxemia. Question if most likely secondary to bronchitis. 9. Most likely the patient has acute bronchitis although his lungs are clear. 10. Thyromegaly, question thyroiditis. Note the patient's thyroid function is normal. 11. Right greater than left shoulder arthritis. RECOMMENDATIONS: Note that the patient's magnesium is adequately replaced. I would recommend that the patient have a chest x-ray and also a pulmonary function test. We will see if this can be arranged on Sunday as an inpatient or outpatient. In the meantime, we will get a chest x-ray in the a.m. I would stop the patient's hydrochlorothiazide, continue the patient on lisinopril and increase as tolerated. Of note, the patient will need a sleep study to rule out sleep apnea, but the patient was awake when he had desaturation while ambulating. TIME SPENT: Note that 35 minutes were spent on this patient with more than 50% of the time spent on direct patient care. This case is of moderate complexity, especially with puzzling hypoxemia. Note that the echocardiogram did not show any significant pulmonary hypertension, but the patient is morbidly obese and the tricuspid regurgitation may be underestimated. Later on would recommend that the patient have an IV Lexiscan Cardiolite stress test. Will order a chest x-ray PA and lateral in the a.m. Discussed with the patient and the patient's and also discussed with the attending physician attending the patient. Medications were reviewed and adjusted, especially stopping the hydrochlorothiazide. Will see if the respiratory therapist can do a flow volume loop to see if there is any muscle weakness. Would also get an aldolase in the a.m. Will follow with you. Thanking you. DICTATING PHYSICIAN: LIEN OSWALD M.D. [id number] JAMES#: [id number] ID: [id number] JOB#: [id number] ACCT: [id number] cc: >
[2016-09-24 06:00] LABS: ANION GAP 12 (5-19); BLOOD UREA NITROGEN 25 mg/dL (7-20); CARBON DIOXIDE 30 mmol/L (22-30); CHLORIDE 94 mmol/L (98-107); CREATINE KINASE 1179 U/L (55-170); CREATININE RESULT 0.93 mg/dL (0.52-1.25); GLUCOSE 101 mg/dL (75-110); MAGNESIUM 1.5 mg/dL (1.6-2.3)
[2016-09-24] MEDS ORDERED: MAGNESIUM SULFATE 4 GM/100 ML RTUPB IV ONE (10:00)
[2016-09-24] MEDS: LISINOPRIL 10 MG TABLET PO SCH (10:42)
[2016-09-24] MEDS: ASPIRIN 325 MG TABLET, ENT COATED PO SCH (10:43)
[2016-09-24] MEDS: AZITHROMYCIN 250 MG TABLET PO SCH (10:43)
[2016-09-24] MEDS: MAGNESIUM OXIDE 400 MG TABLET PO SCH ×2 (10:43→17:56)
--- NOTE | 2016-09-24 17:03 | PDOC PROGRESS REPORT ---
Subjective Progress Note for:: 09/24/16 Subjective:: continues to have hypoxia when he comes off of oxygen. Physical Exam Vital Signs: Temp Pulse Resp BP Pulse Ox 98.3 F 94 12 117/62 93 09/24/16 12:00 09/24/16 14:00 09/24/16 12:00 09/24/16 12:00 09/24/16 12:42 Pulse Oximeter Ambulatory Start: 09/23/16 11: 50 Freq: RTBID Status: Active Document 09/24/16 12:42 LBR (Rec: 09/24/16 12:42 LBR [email or web address]) Exercise Oximetry Treatment Ambulating SpO2 Charge Now No Intake & Output 09/23/16 09/24/16 09/25/16 06:59 06:59 06:59 Intake Total 1942 1297 50 Output Total 2250 1154 300 Balance -126 -212 -708 Weight 122.3 kg General appearance: PRESENT: no acute distress Eye exam: PRESENT: conjunctiva pink. ABSENT: scleral icterus Mouth exam: PRESENT: moist, tongue midline Neck exam: ABSENT: JVD Respiratory exam: PRESENT: clear to auscultation nitin. ABSENT: rales, rhonchi, wheezes Cardiovascular exam: PRESENT: RRR. ABSENT: diastolic murmur, rubs, systolic murmur GI/Abdominal exam: PRESENT: normal bowel sounds, soft. ABSENT: distended, guarding, mass, organolmegaly, rebound, tenderness Extremities exam: ABSENT: calf tenderness, clubbing, pedal edema Neurological exam: PRESENT: alert, awake, oriented to person, oriented to place , oriented to time, oriented to situation Psychiatric exam: PRESENT: appropriate affect Results Laboratory Results: 09/23/16 03:53 09/24/16 03:54 09/24/16 03:54 Sodium 136.0 L Potassium 4.0 Chloride 94 L Carbon Dioxide 30 Anion Gap 12 BUN 25 H Creatinine 0.93 Est GFR ( Amer) > 60 Est GFR (Non-Af Amer) > 60 Glucose 101 Calcium 9.0 Magnesium 1.5 L 09/21/16 09/21/16 09/21/16 16:45 16:45 23:08 Creatine Kinase 1499 H 1516 H CK-MB (CK-2) 4.01 Troponin I 0.087 02/09/22/16 09/22/16 23:08 04:44 04:44 Creatine Kinase 2073 H CK-MB (CK-2) 6.13 H 8.03 H Troponin I 0.074 0.062 09/24/16 09/24/16 03:54 07:10 Creatine Kinase 1179 H CK-MB (CK-2) 2.59 Troponin I Impressions: Chest/Abdomen CTA 09/22/16 00:00 IMPRESSION: No CT angio evidence of acute pulmonary emboli or thoracic aortic dissection. Other findings as above. Results discussed with Dr. Reyes Chest X-Ray 09/24/16 06:00 IMPRESSION: NO SIGNIFICANT RADIOGRAPHIC FINDING IN THE CHEST. Assessment & Plan - Diagnosis (1) Hypertensive emergency Is this a current diagnosis for this admission?: YesPlan: Patient's blood pressures have improved and we will treat with lisinopril. The patient had an echocardiogram done which showed no evidence for diastolic dysfunction. (2) Congestive heart failure (CHF) Qualifiers: Congestive heart failure type: unspecified congestive heart failure type Congestive heart failure chronicity: acute Qualified Code(s): I50.9 - Heart failure, unspecified Is this a current diagnosis for this admission?: YesPlan: Echocardiogram showed a normal ejection fraction with no evidence for diastolic dysfunction. Patient did have mildly elevated troponins and creatine kinase. Cardiology felt this most likely secondary to rhabdomyolysis because of hypomagnesemia. Patient is still hypoxic may have a component of bronchitis (3) Hypertension Qualifiers: Hypertension type: essential hypertension Qualified Code(s): I10 - Essential (primary) hypertension Is this a current diagnosis for this admission?: YesPlan: We'll continue with the lisinopril (4) Respiratory failure Qualifiers: Chronicity: acute Respiratory failure complication: hypoxia Qualified Code(s): J96.01 - Acute respiratory failure with hypoxia Is this a current diagnosis for this admission?: YesPlan: Set most likely secondary to acute hypertensive emergency. This has improved with improvement of his blood pressures. He had a fever last night and continues to be hypoxic. We will check blood cultures and start on Zithromax for possible bronchitis. The patient may have a component of obstructive sleep apnea given his morbid obesity. Because of his continued hypoxia and lack of physical findings to support this we will consult pulmonary medicine in the morning. (5) Hyperthyroidism Is this a current diagnosis for this admission?: YesPlan: Patient has a low TSH but normal T4. We'll plan on repeating a TSH and T4 the next week or 2 as an outpatient. - Time Time Spent with patient: 25-34 minutes - Inpatient Certification Medical Necessity: Need Close Monitoring Due to Risk of Patient Decompensation - Plan Summary Plan Summary: We'll have the patient evaluated by pulmonary medicine in the morning.
[2016-09-24] MEDS ORDERED: ALBUTEROL SULFATE 0.083% NEB 2.5 MG/3 ML AMPUL NEB PRN (19:09)
--- NOTE | 2016-09-24 21:13 | PROGRESS NOTE E ---
Progress Note NAME: NORBERTO CRISOSTOMO : 1975 AGE: 41Y DATE: 09/24/2016 ROOM: 302 SUBJECTIVE: When I saw the patient he was sitting up in a chair with oxygen and was asleep and snoring, and a short period of the patient having an apneic episode. When I awakened him, he denied any chest pain or discomfort. There is no shortness of breath. There is no PND or orthopnea. There is no palpitations or arrhythmias seen on the monitor. There is no leg edema. There is no TIA or CVA symptoms. The patient denies any muscle tenderness, but does complain of generalized muscle weakness. The patient states he denies any cough or sputum production. There is no wheezing. OBJECTIVE: GENERAL: On examination, the patient is morbidly obese, but well groomed. VITAL SIGNS: He is afebrile with temperature of 98.3 degrees Fahrenheit orally, pulse is 89, blood pressure is 117/62, respirations are 12 per minute, O2 sats are 95% on 3L nasal cannula. HEENT: Normocephalic, atraumatic. Pupils are equal, round, and reactive to light and accommodation. Extraocular movements are normal. There is no conjunctival pallor. There is no scleral icterus. ENT is negative. NECK: Supple. There is no JVD. There is diffuse enlargement of the thyroid. Carotids are equal. There is no carotid bruit. There is no lymphadenopathy. Trachea is central. LUNGS: Clear to auscultation and percussion. There is no stridor. There is no accessory muscles of respiration use. HEART: S1 and S2 is heard. There is no S3 gallop. There is no S4 gallop. There is systolic murmur at the left sternal border of the apex. There is no rub. ABDOMEN: Soft, obese, nontender. There is no hepatosplenomegaly. Bowel sounds are well heard. There are no tender areas or masses. EXTREMITIES: Femorals are diminished. There are no femoral bruits. Leg pulses are mildly diminished. There is no pedal edema. There is no DVT or cellulitis. There is no calf tenderness. There is no cyanosis or clubbing. CENTRAL NERVOUS SYSTEM: The patient is conscious and awake at present. Alert after being awoken from his sleep with no focal deficits. PSYCHIATRIC: The patient's judgment and insight are intact. His affect is normal. DIAGNOSTICS: The patient's chest x-ray PA and lateral is negative for any acute process including infiltrates or pneumonia or heart failure. There is borderline cardiomegaly with no evidence of failure. The patient's sodium is 136.0, potassium 4.0, chloride 94, CO2 is 30. The patient's BUN is 25, creatinine 0.93. GRF is greater than 60. The patient's glucose is 101. His calcium is 9. His magnesium again is down to 1.5. The patient's CPK is 1179. The patient's CPK/MB is negative at 2.59. The patient's aldosterone levels and aldosterone ratio levels are pending. Note that the patient's TSH was low at 0.26, but the patient's T4 was normal. ASSESSMENT: 1. HYPERTENSIVE EMERGENCY, RESOLVED. BLOOD PRESSURE IS NOW WELL CONTROLLED. 2. RHABDOMYOLYSIS, MOST LIKELY SECONDARY TO HYPOMAGNESEMIA. MAGNESIUM AGAIN IS LOW TODAY WITH NORMAL POTASSIUM. 3. RHABDOMYOLYSIS IS THE CAUSE OF THE PATIENT'S ELEVATED CPK AND CK-MB AND ALSO INDETERMINATE TROPONIN. 4. NO EVIDENCE OF NC. 5. HYPOMAGNESEMIA, THIS HAS BEEN ON THE LOWER SIDE TODAY WITH A MAGNESIUM LEVEL OF 1.5 AND THIS HAS BEEN CORRECTED. 6. ANXIETY AND HISTORY OF PANIC ATTACKS, NONE THIS ADMISSION. 7. DEPRESSION. THE PATIENT AT PRESENT DOES NOT APPEAR TO BE DEPRESSED. 8. HYPOXEMIA, THIS IS VERY PUZZLING TO THE CAUSE OF HYPOXEMIA. IT IS BECAUSE OF RESPIRATORY MUSCLE WEAKNESS VERSUS RESTRICTIVE DISEASE IN A PATIENT WHO IS MORBIDLY OBESE. NOTE WHEN THE HYPOXEMIA OCCURRED, THE PATIENT WAS NOT ASLEEP, HE WAS AMBULATING. Aldosterone levels have been ordered. 9. ACUTE BRONCHITIS. The patient is on antibiotics and seems to have resolved. 10. THYROMEGALY, QUESTION THYROIDITIS. Note that the patient's TSH is low, but the T4 is normal. We will need to have this repeated. 11. RIGHT GREATER THAN LEFT SHOULDER ARTHRITIS. 12. DOES COMPLAIN OF GENERALIZED MUSCLE WEAKNESS, BUT NO MUSCLE TENDERNESS. RECOMMENDATIONS: Would get a sniff test to see if the patient has diaphragmatic paralysis, although on clinical examination there is good exertion of the diaphragm. Also, would get pulmonary function tests along with maximum voluntary ventilation to see if there is any muscle weakness of the respiratory muscles causing the patient to have hypoxemia. Note that the patient's hydrochlorothiazide has been discontinued. When the test comes back, maybe we should put the patient on some spironolactone. Note chest x-ray results were discussed with the patient. New lab tests were ordered. Note that the patient's medical decision-making is of moderate complexity, especially with the patient's high CPK's and the patient's hypoxemia being present. Note 35 minutes spent on this patient and more than 50% of the time spent on direct patient care and discussion of the x-ray findings on other labs of the patient. Also, discussed the rationale behind the procedure and pulmonary function test with the patient. The patient will need a pulmonary consult and also would recommend that the patient have an IV Lexiscan Cardiolite stress test. More than 50% of the time spent on direct patient care, reviewing his medications including his labs and also coordinating care with other caregiving providers on the case. We will follow with you. DICTATING PHYSICIAN: LIEN OSWALD M.D. [id number] JAMES#: [id number] ID: [id number] JOB#: [id number] ACCT: [id number] cc: >
[2016-09-25 05:01] LABS: HEMATOCRIT 41.8 % (37.9-51.0); HEMOGLOBIN 14.1 g/dL (13.5-17.0); HGB HCT DIFFERENCE 0.5; MEAN CORPUSCULAR HEMOGLOBIN 28.6 pg (27.0-33.4); MEAN CORPUSCULAR HGB CONC 33.7 g/dL (32.0-36.0); MEAN CORPUSCULAR VOLUME 85 fl (80-97); RED BLOOD COUNT 4.94 10^6/uL (4.35-5.55); RED CELL DISTRIBUTION WIDTH 14.3 % (11.5-14.0); WHITE BLOOD COUNT 5.9 10^3/uL (4.0-10.5)
[2016-09-25] MEDS: ASPIRIN 325 MG TABLET, ENT COATED PO SCH (10:20)
[2016-09-25] MEDS: LISINOPRIL 10 MG TABLET PO SCH (10:20)
[2016-09-25] MEDS: MAGNESIUM OXIDE 400 MG TABLET PO SCH ×2 (10:21→17:56)
[2016-09-25] MEDS: AZITHROMYCIN 250 MG TABLET PO SCH (10:21)
--- NOTE | 2016-09-25 13:49 | PDOC CONSULTATION ---
Consultation Consult Date: 09/25/16 Attending physician:: LARISA REYES Consult reason:: hypoxia History of Present Illness Admission Date/PCP: 09/21/16 13:47 History of Present Illness: NORBERTO CRISOSTOMO is a 41 year old male who has a history of hypertension who presents with sudden onset of shortness of breath. The patient reports that he woke up this morning felt short of breath and had a cough productive some white sputum. The patient presented to emergency room was found to have a blood pressure of 240/120. Patient denies to me that he is had any chest pain. The patient normally takes lisinopril/hydrochlorothiazide. He also does report having some orthopnea today. He denies any lower extremity edema. The patient denies any fevers or chills. Prior to this morning he has not had any problems with dyspnea on exertion or orthopnea or PND. He does admit to smoking 2-3 packs per day for 30 years but has not smoked recently. He admits to exposure to passive smoke as a child and as an adolescent. He admits to cough but denies hemoptysis and his PPD status is unknown he denies a history of chronic chronic lung disease as a child or adolescent. 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 Past Medical History Cardiac Medical History: Reports: Hypertension Pulmonary Medical History: Reports: None EENT Medical History: Reports: None Neurological Medical History: Reports: None Endocrine Medical History: Reports: None Renal/ Medical History: Reports: None Malignancy Medical History: Reports: None GI Medical History: Reports: None Musculoskeltal Medical History: Denies: Arthritis, Gout Skin Medical History: Reports: None Psychiatric Medical History: Reports: None Traumatic Medical History: Reports: None Hematology: Reports: None Infectious Medical History: Reports: None Past Surgical History Past Surgical History: Reports: None Social History Information Source: Patient, [facility] Records Lives with: Spouse/Significant other Smoking Status: Former Smoker Number of Years Smokin Passive smoke exposure as: Both Frequency of Alcohol Use: None Hx Recreational Drug Use: No Drugs: None Hx Prescription Drug Abuse: No Have you had any respiratory illnesses as a child?: No Have you been exposed to any sick contacts recently?: No Have you had any recent respiratory illnesses?: No Have you travelled outside of [place] in the past 12 months?: No - Advance Directive Resuscitation Status: Full Code Family History Family History: None Parental Family History Reviewed: No Children Family History Reviewed: No Medication/Allergy Home Medications: Hydrochlorothiazide [Hydrodiuril 25 mg Tablet] 25 mg PO DAILY 09/21/16 Allergies/Adverse Reactions: No Known Allergies Allergy (Verified 09/21/16 10:41) Physical Exam Vital Signs: Temp Pulse Resp BP Pulse Ox 99.0 F 91 19 142/74 H 93 09/25/16 07:45 09/25/16 07:45 09/25/16 07:45 09/25/16 07:45 09/25/16 07:45 Pulse Oximeter Ambulatory Start: 09/23/16 11: 50 Freq: RTBID Status: Active Document 09/24/16 12:42 LBR (Rec: 09/24/16 12:42 LBR [email or web address]) Exercise Oximetry Treatment Ambulating SpO2 Charge Now No Intake & Output 09/24/16 09/25/16 09/26/16 06:59 06:59 06:59 Intake Total 1297 290 Output Total 1950 1625 Balance -653 -1335 General appearance: PRESENT: disheveled, obese Head exam: PRESENT: atraumatic, normocephalic Eye exam: PRESENT: conjunctiva pale, EOMI Mouth exam: PRESENT: moist, neck supple, tongue midline, other - [place] 4 Neck exam: ABSENT: carotid bruit, JVD, lymphadenopathy, thyromegaly Respiratory exam: PRESENT: decreased breath sounds, prolonged expiratory phas, rales, rhonchi, symmetrical, unlabored Cardiovascular exam: PRESENT: RRR, +S1, +S2 Pulses: PRESENT: normal radial pulses GI/Abdominal exam: PRESENT: normal bowel sounds, soft. ABSENT: distended, guarding, mass, organolmegaly, rebound, tenderness Rectal exam: PRESENT: deferred Neurological exam: PRESENT: awake, other - Lethargic Skin exam: PRESENT: dry, erythema, warm Results Laboratory Results: 09/25/16 04:07 09/24/16 03:54 09/25/16 04:07 WBC 5.9 RBC 4.94 Hgb 14.1 Hct 41.8 MCV 85 MCH 28.6 MCHC 33.7 RDW 14.3 H Plt Count 151 09/21/16 09/21/16 09/21/16 16:45 16:45 23:08 Creatine Kinase 1499 H 1516 H CK-MB (CK-2) 4.01 Troponin I 0.087 09/21/16 09/22/16 09/22/16 23:08 04:44 04:44 Creatine Kinase 2073 H CK-MB (CK-2) 6.13 H 8.03 H Troponin I 0.074 0.062 09/24/16 09/24/16 03:54 07:10 Creatine Kinase 1179 H CK-MB (CK-2) 2.59 Troponin I Impressions: Chest/Abdomen CTA 09/22/16 00:00 IMPRESSION: No CT angio evidence of acute pulmonary emboli or thoracic aortic dissection. Other findings as above. Results discussed with Dr. Reyes Chest X-Ray 09/24/16 06:00 IMPRESSION: NO SIGNIFICANT RADIOGRAPHIC FINDING IN THE CHEST. Assessment & Plan - Diagnosis (1) Hyperthyroidism Is this a current diagnosis for this admission?: YesPlan: Diffusely enlarged thyroid on CT scan T4 normal TSH pending (2) Respiratory failure Qualifiers: Chronicity: acute Respiratory failure complication: hypoxia and hypercapnia Qualified Code(s): J96.01 - Acute respiratory failure with hypoxia; J96.02 - Acute respiratory failure with hypercapnia Is this a current diagnosis for this admission?: YesPlan: Patient is demonstrated hypercapnia and hypoxia despite the use of BiPAP - Time Time Spent: 30 to 50 Minutes
--- NOTE | 2016-09-25 16:53 | PDOC PROGRESS REPORT ---
Subjective Progress Note for:: 09/25/16 Subjective:: continues to have hypoxia when he comes off of oxygen. Physical Exam Vital Signs: Temp Pulse Resp BP Pulse Ox 98.5 F 86 19 123/75 93 09/25/16 16:01 09/25/16 16:01 09/25/16 16:01 09/25/16 16:01 09/25/16 16:01 Pulse Oximeter Ambulatory Start: 09/23/16 11: 50 Freq: RTBID Status: Active Document 09/25/16 08:04 LBR (Rec: 09/25/16 12:32 LBR [email or web address]) Exercise Oximetry Treatment Ambulating SpO2 Charge Now No Intake & Output 09/24/16 09/25/16 09/26/16 06:59 06:59 06:59 Intake Total 1297 290 355 Output Total 4215 1625 Balance -653 -1335 355 General appearance: PRESENT: no acute distress Eye exam: PRESENT: conjunctiva pink. ABSENT: scleral icterus Ear exam: PRESENT: normal external ear exam Mouth exam: PRESENT: moist, tongue midline Neck exam: ABSENT: JVD Respiratory exam: PRESENT: clear to auscultation nitin. ABSENT: rales, rhonchi, wheezes Cardiovascular exam: PRESENT: RRR. ABSENT: diastolic murmur, rubs, systolic murmur GI/Abdominal exam: PRESENT: normal bowel sounds, soft. ABSENT: distended, guarding, mass, organolmegaly, rebound, tenderness Extremities exam: ABSENT: calf tenderness, clubbing, pedal edema Neurological exam: PRESENT: awake, oriented to person, oriented to place, oriented to time, oriented to situation Psychiatric exam: PRESENT: flat affect Results Laboratory Results: 09/25/16 04:07 09/24/16 03:54 09/25/16 04:07 WBC 5.9 RBC 4.94 Hgb 14.1 Hct 41.8 MCV 85 MCH 28.6 MCHC 33.7 RDW 14.3 H Plt Count 151 09/21/16 09/21/16 09/21/16 16:45 16:45 23:08 Creatine Kinase 1499 H 1516 H CK-MB (CK-2) 4.01 Troponin I 0.087 09/21/16 09/22/16 09/22/16 23:08 04:44 04:44 Creatine Kinase 2073 H CK-MB (CK-2) 6.13 H 8.03 H Troponin I 0.074 0.062 09/24/16 09/24/16 03:54 07:10 Creatine Kinase 1179 H CK-MB (CK-2) 2.59 Troponin I Impressions: Chest/Abdomen CTA 09/22/16 00:00 IMPRESSION: No CT angio evidence of acute pulmonary emboli or thoracic aortic dissection. Other findings as above. Results discussed with Dr. Reyes Chest X-Ray 09/24/16 06:00 IMPRESSION: NO SIGNIFICANT RADIOGRAPHIC FINDING IN THE CHEST. Head CT 09/25/16 00:00 IMPRESSION: No significant intracranial abnormalities were identified. Sinus disease as noted above Assessment & Plan - Diagnosis (1) Hypertensive emergency Is this a current diagnosis for this admission?: YesPlan: Patient's blood pressures have improved and we will treat with lisinopril. The patient had an echocardiogram done which showed no evidence for diastolic dysfunction. (2) Congestive heart failure (CHF) Qualifiers: Congestive heart failure type: unspecified congestive heart failure type Congestive heart failure chronicity: acute Qualified Code(s): I50.9 - Heart failure, unspecified Is this a current diagnosis for this admission?: YesPlan: Echocardiogram showed a normal ejection fraction with no evidence for diastolic dysfunction. Patient did have mildly elevated troponins and creatine kinase. Cardiology felt this most likely secondary to rhabdomyolysis because of hypomagnesemia. Patient is still hypoxic may have a component of bronchitis as well as sleep apnea (3) Hypertension Qualifiers: Hypertension type: essential hypertension Qualified Code(s): I10 - Essential (primary) hypertension Is this a current diagnosis for this admission?: YesPlan: We'll continue with the lisinopril (4) Respiratory failure Qualifiers: Chronicity: acute Respiratory failure complication: hypoxia and hypercapnia Qualified Code(s): J96.01 - Acute respiratory failure with hypoxia Is this a current diagnosis for this admission?: YesPlan: Dr. Ann has evaluated the patient and is concerned it may be a component of sleep apnea. Patient may need noninvasive ventilation at home. Appreciate Dr. Ann's help. (5) Hyperthyroidism Is this a current diagnosis for this admission?: YesPlan: Patient has a low TSH but normal T4. We'll plan on repeating a TSH and T4 the next week or 2 as an outpatient. - Time Time Spent with patient: 25-34 minutes - Inpatient Certification Medical Necessity: Need Close Monitoring Due to Risk of Patient Decompensation - Plan Summary Plan Summary: Dr. Ann is looking to see if this patient will qualify for noninvasive ventilatory support at home.
[2016-09-25 20:07] LABS: APPEARANCE,URINE CLEAR; BILIRUBIN,URINE NEGATIVE (NEGATIVE); GLUCOSE, URINE NEGATIVE (NEGATIVE); KETONES,URINE NEGATIVE (NEGATIVE); LEUKOCYTE ESTERASE,URINE TRACE (NEGATIVE); NITRITE,URINE NEGATIVE (NEGATIVE); PROTEIN,URINE NEGATIVE (NEGATIVE); URINE SPECIFIC GRAVITY 1.012; UROBILINOGEN,URINE NEGATIVE mg/dL (<2.0)
--- NOTE | 2016-09-25 22:23 | PROGRESS NOTE E ---
Progress Note NAME: NORBERTO CRISOSTOMO : 1975 AGE: 41Y DATE: 09/25/2016 ROOM: 302 SUBJECTIVE: The patient at rest is without any shortness of breath. There is no chest pain or discomfort. There is no PND or orthopnea. His blood pressure is well controlled. There is no arrhythmia seen on the monitor. There is no palpitation. There are no TIA or CVA symptoms. There are no ventricular arrhythmia on the monitor. Note that the patient has desaturation if he comes off oxygen and ambulates. The patient did have a PFT today, the results of which are not known. OBJECTIVE: GENERAL: On examination the patient is morbidly obese but well groomed. VITAL SIGNS: He is afebrile temperature is 98.9 degrees Fahrenheit. Pulse is 91 beats per minute. Blood pressure is 135/76. Respirations are 19 per minute. O2 saturations are 93% on 2.5 liters nasal cannula. HEAD: Atraumatic/normocephalic. EYES: Pupils are equal, round, regular, reactive to light/accommodation. Extraocular movements are normal. There is no conjunctival pallor. There is no scleral icterus. EARS, NOSE, AND THROAT: Negative. NECK: Supple. There is no JVD. There is diffuse enlargement of the thyroid. Carotids are equal. There is no carotid bruit. There is no lymphadenopathy. Trachea is central. LUNGS: Clear to auscultation and percussion. There is no stridor. There are no accessory muscles of respirations used. There is no rhonchi, rales, or wheezing. HEART: S1, S2 is heard. There is no S3 gallop. There is no S4 gallop. There is a systolic murmur in the left sternal border and the apex. There is no rub. ABDOMEN: Soft, obese, nontender. There is no hepatosplenomegaly. Bowel sounds are well heard. There are no tender areas or masses. EXTREMITIES: Femorals are diminished. Femorals are diminished. There are no femoral bruits. Leg pulses are diminished. There is no pedal edema. There is no DVT or cellulitis. There is cyanosis or clubbing. There is no calf tenderness. CENTRAL NERVOUS SYSTEM: The patient is conscious, awake, alert, and oriented x3 at present. PSYCHOLOGICAL: The patient's judgement and insight are intact. His affect is normal. DIAGNOSTIC DATA: The patient's white count is 5,900, hemoglobin is 14.1, hematocrit is 41.8, platelet count is 131,000. The patient's serum aldolase renin activity, aldose serum levels, and aldose serum/radioactivity is awaited. IMPRESSION: 1. HYPERTENSIVE EMERGENCY, RESOLVED. AT PRESENT, THE PATIENT'S BLOOD PRESSURE IS WELL CONTROLLED. 2. HYPOXEMIA, QUESTIONABLE ETIOLOGY. 3. MOST LIKELY THE PATIENT HAS SUBCLINICAL HYPERTHYROIDISM WITH A LOW TSH AND NORMAL FREE T4. THERE WERE NO T3 LEVELS OBTAINED. WILL RECHECK THE PATIENT'S TSH, FREE T3, AND FREE T4 TOMORROW. 4. RHABDOMYOLYSIS, THE CAUSE OF THE PATIENT'S ELEVATED CPK AND CPK-MB AND ALSO INDETERMINATE TROPONIN-I WITH NO EVIDENCE OF NH. 5. HYPOMAGNESEMIA AND THE PATIENT HAS BEEN REPLETED. NO LEVELS OBTAINED. 7. ANXIETY AND HISTORY OF PANIC ATTACKS, NONE THIS ADMISSION. 8. DEPRESSION. THE PATIENT AT PRESENT DOES NOT APPEAR TO BE DEPRESSED. 9. HYPOXEMIA, *------* TO THE CAUSE OF HYPOXEMIA. 10. ACUTE BRONCHITIS; THIS IS POSSIBLY RESOLVED. 11. THYROMEGALY, QUESTIONABLE THYROIDITIS. 12. RIGHT GREATER THAN LEFT SHOULDER ARTHRITIS. PLAN: Note that the patient's zane inspiratory force is -29. His maximum volume ventilation is 29.5 liters in 60 seconds. Await PFTs. Note that the patient's chest fluoroscopy shows a normal movement of right and left diaphragms. The patient's head CT shows the ventricles are normal size and contour. There is no mass. There is no hemorrhage. No midline shift. Normal valdes/white matter differentiation. No evidence of an infarcted cerebrum. No masses. No hemorrhage. No alteration of density noted or acute infarction. There is no fluid collection and no masses in the extra-axial spaces. Air-fluid level is identified in the left sphenoid sinus. The rest is negative for any pathology including there are no masses and no hematoma. The patient has no cough or sputum production. There is no wheezing or any other signs of bronchitis. Note that the patient's TSH and T4 is normal. Will repeat these studies tomorrow. Most likely, the patient has clinical hyperthyroidism. He does complain of generalized weakness but no muscle tenderness. As mentioned, we will continue current medications. Will await PFT results. Will recheck the patient's thyroid function. Dr. Stauffer will cover the patient in the morning. Note 35 minutes were spent on this patient with more than 50% of the time spent on direct patient care and also discussing the patient's negative inspiratory force of respiration and the patient's maximum *------*, await PFTs, also discussions with the hospitalist taking care of the patient and the nurses taking care of the patient. Pulmonary has been consulted. Await Pulmonary consult. DICTATING PHYSICIAN: LIEN OSWALD M.D. [id number] PHY#: [id number] ID: [id number] JOB#: [id number] ACCT: [id number] cc:LIEN OSWALD M.D. >
[2016-09-26 04:39] LABS: ABSOLUTE LYMPHOCYTES (AUTO) 1.8 10^3/uL (0.5-4.7); ABSOLUTE MONOCYTES (AUTO) 0.6 10^3/uL (0.1-1.4); ABSOLUTE NEUT (AUTO) 2.1 10^3/uL (1.7-8.2); BASOPHILS % (AUTO) 0.4 % (0-2); EOSINOPHILS % (AUTO) 1.1 % (0-6); HEMATOCRIT 41.5 % (37.9-51.0); HEMOGLOBIN 13.9 g/dL (13.5-17.0); HGB HCT DIFFERENCE 0.2; LYMPHOCYTES % (AUTO) 40.1 % (13-45); MEAN CORPUSCULAR HEMOGLOBIN 28.5 pg (27.0-33.4); MEAN CORPUSCULAR HGB CONC 33.5 g/dL (32.0-36.0); MEAN CORPUSCULAR VOLUME 85 fl (80-97); MONOCYTES % (AUTO) 13.4 % (3-13); RED BLOOD COUNT 4.88 10^6/uL (4.35-5.55); RED CELL DISTRIBUTION WIDTH 14.4 % (11.5-14.0); WHITE BLOOD COUNT 4.6 10^3/uL (4.0-10.5)
[2016-09-26 05:11] LABS: ANION GAP 9 (5-19); BLOOD UREA NITROGEN 19 mg/dL (7-20); CALCIUM 9.2 mg/dL (8.4-10.2); CARBON DIOXIDE 33 mmol/L (22-30); CHLORIDE 97 mmol/L (98-107); CREATININE RESULT 0.83 mg/dL (0.52-1.25); GLUCOSE 105 mg/dL (75-110); SODIUM 139.2 mmol/L (137-145)
[2016-09-26 05:25] LABS: FREE T3 4.3 pg/mL (2.77-5.27)
[2016-09-26 05:39] LABS: THYROID STIMULATING HORMONE 2.08 uIU/mL (0.47-4.68)
[2016-09-26 07:17] LABS: ARTERIAL BLOOD O2 SATURATION 93.9 % (94-98)
[2016-09-26] MEDS: ASPIRIN 325 MG TABLET, ENT COATED PO SCH (10:08)
[2016-09-26] MEDS: LISINOPRIL 10 MG TABLET PO SCH (10:08)
[2016-09-26] MEDS: MAGNESIUM OXIDE 400 MG TABLET PO SCH ×2 (10:08→18:22)
[2016-09-26] MEDS: AZITHROMYCIN 250 MG TABLET PO SCH (10:09)
[2016-09-26] MEDS ORDERED: LANSOPRAZOLE 30 MG TAB.RAP.DR PO ONE (10:11)
--- NOTE | 2016-09-26 10:24 | PDOC PROGRESS REPORT ---
Subjective Progress Note for:: 09/26/16 Subjective:: Patient seems to be doing better with gradual improvement. Patient still however short of breath on minimal exertion. Pt is denying any chest arm or neck discomfort. Patient denying any PND, orthopnea. Patient denied any sustained palpitations, dizziness, syncope, near syncope. Patient denying any fever chills. Patient denying any other significant discomfort. Patient is maintaining sinus rhythm. Review of systems: Rest review of systems negative. Medications: Medications have been reviewed. Physical Exam Vital Signs: Temp Pulse Resp BP Pulse Ox 98.0 F 91 20 127/76 H 90 L 09/26/16 07:42 09/26/16 07:42 09/26/16 07:42 09/26/16 07:42 09/26/16 07:42 Pulse Oximeter Ambulatory Start: 09/23/16 11: 50 Freq: RTBID Status: Active Document 09/25/16 20:00 [facility] (Rec: 09/25/16 21:48 [facility] [email or web address]) Exercise Oximetry Treatment Ambulating SpO2 Charge Now No Intake & Output 09/25/16 09/26/16 09/27/16 06:59 06:59 06:59 Intake Total 290 892 Output Total 1625 250 Balance -1335 642 Exam: GENERAL: well-nourished and in no acute distress. Alert and oriented x3 HEAD: Atraumatic, normocephalic. EYES: Pupils equal round and reactive to light, extraocular movements intact, sclera anicteric, conjunctiva are normal. ENT: TMs normal, nares patent, oropharynx clear without exudates. Moist mucous membranes. No oral ulcerations or bleeding gums noted NECK: supple without lymphadenopathy. Trachea is central. No cervical or axillary lymphadenopathy noted. Carotids are 2+, JVD WNL LUNGS: Respiration seems nonlabored, no significant accessory muscle action noted. Breath sounds clear to auscultation bilaterally and equal noted. No wheezes rales or rhonchi noted. No significant dullness noted on percussion. CHEST: Palpation of the chest wall shows no significant chest wall tenderness. No other significant abnormalities noted. HEART: [place] [employer], No PSH, 1/6 URSZULA aortic area, 1/6 macdonald systolic murmur mitral area, no rubs, no gallops. ABDOMEN: Soft, no significant tenderness appreciated, normoactive bowel sounds. No guarding, no rebound. No rigidity noted . No masses appreciated. EXTREMITIES: Pedal pulses are 1-2+, no calf tenderness noted. No clubbing or cyanosis.1+ pedal edema noted NEUROLOGICAL: Focused neurological exam showed no significant neurologic deficit. Normal speech, no focal weakness appreciated. PSYCH: Normal mood, normal affect. Judgment and insight within normal limits. SKIN: No significant ecchymosis, rash, ulcerations or signs of pruritus noted. MUSCULOSKELETAL EXAM: No significant joint swelling noted. Results Laboratory Results: 09/26/16 03:46 09/26/16 03:46 09/25/16 09/26/16 09/26/16 18:05 03:46 03:46 WBC 4.6 RBC 4.88 Hgb 13.9 Hct 41.5 MCV 85 MCH 28.5 MCHC 33.5 RDW 14.4 H Plt Count 139 L Seg Neutrophils % 45.0 Lymphocytes % 40.1 Monocytes % 13.4 H Eosinophils % 1.1 Basophils % 0.4 Absolute Neutrophils 2.1 Absolute Lymphocytes 1.8 Absolute Monocytes 0.6 Absolute Eosinophils 0.0 Absolute Basophils 0.0 Carbonic Acid HCO3/H2CO3 Ratio ABG pH ABG pCO2 ABG pO2 ABG HCO3 ABG O2 Saturation ABG Base Excess FiO2 Sodium Potassium Chloride Carbon Dioxide Anion Gap BUN Creatinine Est GFR ( Amer) Est GFR (Non-Af Amer) Glucose Calcium TSH 2.08 Free T4 1.50 Free T3 pg/mL 4.30 Urine Color YELLOW Urine Appearance CLEAR Urine pH 5.0 Ur Specific [place] 1.012 Urine Protein NEGATIVE Urine Glucose (UA) NEGATIVE Urine Ketones NEGATIVE Urine Blood LARGE H Urine Nitrite NEGATIVE Ur Leukocyte Esterase TRACE H Urine WBC (Auto) 8 Urine RBC (Auto) 5 09/26/16 09/26/16 09/26/16 03:46 05:40 06:55 WBC RBC Hgb Hct MCV MCH MCHC RDW Plt Count Seg Neutrophils % Lymphocytes % Monocytes % Eosinophils % Basophils % Absolute Neutrophils Absolute Lymphocytes Absolute Monocytes Absolute Eosinophils Absolute Basophils Carbonic Acid Cancelled 1.38 H HCO3/H2CO3 Ratio Cancelled 21:1 ABG pH Cancelled 7.42 ABG pCO2 Cancelled 45.9 H ABG pO2 Cancelled 68.5 L ABG HCO3 Cancelled 29.2 H ABG O2 Saturation Cancelled 93.9 L ABG Base Excess Cancelled 4.0 FiO2 Cancelled ROOM AIR Sodium 139.2 Potassium 4.0 Chloride 97 L Carbon Dioxide 33 H Anion Gap 9 BUN 19 Creatinine 0.83 Est GFR ( Amer) > 60 Est GFR (Non-Af Amer) > 60 Glucose 105 Calcium 9.2 TSH Free T4 Free T3 pg/mL Urine Color Urine Appearance Urine pH Ur Specific [place] Urine Protein Urine Glucose (UA) Urine Ketones Urine Blood Urine Nitrite Ur Leukocyte Esterase Urine WBC (Auto) Urine RBC (Auto) 09/21/16 09/21/16 09/21/16 16:45 16:45 23:08 Creatine Kinase 1499 H 1516 H CK-MB (CK-2) 4.01 Troponin I 0.087 09/21/16 09/22/16 09/22/16 23:08 04:44 04:44 Creatine Kinase 2073 H CK-MB (CK-2) 6.13 H 8.03 H Troponin I 0.074 0.062 09/24/16 09/24/16 03:54 07:10 Creatine Kinase 1179 H CK-MB (CK-2) 2.59 Troponin I Impressions: Chest/Abdomen CTA 09/22/16 00:00 IMPRESSION: No CT angio evidence of acute pulmonary emboli or thoracic aortic dissection. Other findings as above. Results discussed with Dr. Reyes Chest X-Ray 09/24/16 06:00 IMPRESSION: NO SIGNIFICANT RADIOGRAPHIC FINDING IN THE CHEST. Head CT 09/25/16 00:00 IMPRESSION: No significant intracranial abnormalities were identified. Sinus disease as noted above Chest Fluoroscopy 09/25/16 06:00 IMPRESSION: NORMAL DIAPHRAGM EXERTION ON INSPIRATION AND EXPIRATION. Assessment & Plan - Diagnosis (1) Congestive heart failure (CHF) Qualifiers: Congestive heart failure type: diastolic Congestive heart failure chronicity: acute Qualified Code(s): I50.31 - Acute diastolic (congestive ) heart failure Is this a current diagnosis for this admission?: Yes (2) Hypertensive emergency Is this a current diagnosis for this admission?: Yes (3) Respiratory failure Qualifiers: Chronicity: acute Respiratory failure complication: hypoxia and hypercapnia Qualified Code(s): J96.01 - Acute respiratory failure with hypoxia Is this a current diagnosis for this admission?: Yes (4) Hypertension Qualifiers: Hypertension type: essential hypertension Qualified Code(s): I10 - Essential (primary) hypertension Is this a current diagnosis for this admission?: Yes (5) Obesity Qualifiers: Obesity severity: unspecified obesity severity Is this a current diagnosis for this admission?: Yes (6) Elevated troponin I level Is this a current diagnosis for this admission?: Yes (7) Sleep apnea Qualifiers: Sleep apnea type: unspecified type Qualified Code(s): G47.30 - Sleep apnea, unspecified Is this a current diagnosis for this admission?: Yes - Notes Notes: Congestive heart failure: Most likely diastolic along with significant contribution from right heart failure secondary to obesity hypoventilation syndrome and possible pulmonary hypertension. Start patient on diuretics, Lasix 40 mg by mouth daily. Have also started patient on Cardizem CD 120 mg by mouth daily. Patient is at risk for going into atrial dysrhythmias because of significant obesity. Hypertension emergency: Blood pressure under better control. Obesity: Patient seems to have obesity hypoventilation syndrome and also significant sleep apneas syndrome. Dr. Ann is following. Respiratory failure: Patient has both hypercapnic and hypoxic respiratory failure. Continue intermittent positive pressure ventilatory support. Abnormal electrocardiogram: Patient has nonspecific T-wave inversion. Abnormal troponin levels: To be evaluated further with a nuclear stress test. This amount of elevation could be just related to respiratory failure and CHF however patient does have significant shortness of breath. Feel that an ischemia evaluation is indicated. Dyspnea: Most likely obesity obesity and deconditioning but need to rule out any ischemia equivalent as cause of his dyspnea. Sleep apnea syndrome: This is suspect that based on patient's symptoms of intermittent snoring, daytime fatigue and somnolence. Patient also has difficulty falling asleep and staying asleep. Patient has obesity and oropharyngeal exams suggest high probability of underlying sleep apnea syndrome. Patient would benefit from a sleep study and this can be scheduled as an outpatient. - Time Time with patient: Greater than 35 minutes - CODE STATUS was discussed, patient remains full code. Surrogate decision-maker patient's . Multiple medical problems were addressed.More than 50% of the time spent coordinating care, discussing management plans with involved caregivers. Management plans discussed with involved personnels. Medical decision making was of moderate complexity. Medications reviewed and adjusted accordingly: Yes
[2016-09-26] MEDS ORDERED: DILTIAZEM HCL 120 MG CAP.SR.24H PO ONE (11:00)
[2016-09-26] MEDS ORDERED: FUROSEMIDE 40 MG TABLET PO ONE (11:00)
--- NOTE | 2016-09-26 14:35 | PDOC PROGRESS REPORT ---
Subjective Progress Note for:: 09/26/16 Subjective:: Patient having a lot of daytime sleepiness. The patient reported chills or fever or worsening respiratory condition. Patient denies any diarrhea. No abdominal pain nausea or vomiting, no chest pain PND orthopnea. Patient evaluated by pulmonary, reportedly patient requires home BiPAP trilogy ventilator. Physical Exam Vital Signs: Temp Pulse Resp BP Pulse Ox 97.8 F 88 18 147/96 H 96 09/26/16 11:06 09/26/16 11:06 09/26/16 11:06 09/26/16 11:06 09/26/16 11:06 Pulse Oximeter Ambulatory Start: 09/23/16 11: 50 Freq: RTBID Status: Active Document 09/25/16 20:00 [facility] (Rec: 09/25/16 21:48 [facility] [email or web address]) Exercise Oximetry Treatment Ambulating SpO2 Charge Now No Intake & Output 09/25/16 09/26/16 09/27/16 06:59 06:59 06:59 Intake Total 290 892 Output Total 1625 250 Balance -1335 642 General appearance: PRESENT: no acute distress, morbidly obese, other - On BiPAP Head exam: PRESENT: normocephalic Eye exam: PRESENT: EOMI Mouth exam: PRESENT: moist, neck supple Neck exam: ABSENT: JVD Respiratory exam: PRESENT: clear to auscultation nitin. ABSENT: rhonchi, wheezes Cardiovascular exam: PRESENT: RRR. ABSENT: gallop GI/Abdominal exam: PRESENT: distended - Obese, hypoactive bowel sounds, soft. ABSENT: tenderness Extremities exam: PRESENT: other - Trace lower extremity edema Psychiatric exam: ABSENT: agitated Focused psych exam: ABSENT: restlessness Skin exam: PRESENT: dry, warm. ABSENT: cyanosis Results Laboratory Results: 09/26/16 03:46 09/26/16 03:46 09/25/16 09/26/16 09/26/16 18:05 03:46 03:46 WBC 4.6 RBC 4.88 Hgb 13.9 Hct 41.5 MCV 85 MCH 28.5 MCHC 33.5 RDW 14.4 H Plt Count 139 L Seg Neutrophils % 45.0 Lymphocytes % 40.1 Monocytes % 13.4 H Eosinophils % 1.1 Basophils % 0.4 Absolute Neutrophils 2.1 Absolute Lymphocytes 1.8 Absolute Monocytes 0.6 Absolute Eosinophils 0.0 Absolute Basophils 0.0 Carbonic Acid HCO3/H2CO3 Ratio ABG pH ABG pCO2 ABG pO2 ABG HCO3 ABG O2 Saturation ABG Base Excess FiO2 Sodium Potassium Chloride Carbon Dioxide Anion Gap BUN Creatinine Est GFR ( Amer) Est GFR (Non-Af Amer) Glucose Calcium TSH 2.08 Free T4 1.50 Free T3 pg/mL 4.30 Urine Color YELLOW Urine Appearance CLEAR Urine pH 5.0 Ur Specific [place] 1.012 Urine Protein NEGATIVE Urine Glucose (UA) NEGATIVE Urine Ketones NEGATIVE Urine Blood LARGE H Urine Nitrite NEGATIVE Ur Leukocyte Esterase TRACE H Urine WBC (Auto) 8 Urine RBC (Auto) 5 09/26/16 09/26/16 09/26/16 03:46 05:40 06:55 WBC RBC Hgb Hct MCV MCH MCHC RDW Plt Count Seg Neutrophils % Lymphocytes % Monocytes % Eosinophils % Basophils % Absolute Neutrophils Absolute Lymphocytes Absolute Monocytes Absolute Eosinophils Absolute Basophils Carbonic Acid Cancelled 1.38 H HCO3/H2CO3 Ratio Cancelled 21:1 ABG pH Cancelled 7.42 ABG pCO2 Cancelled 45.9 H ABG pO2 Cancelled 68.5 L ABG HCO3 Cancelled 29.2 H ABG O2 Saturation Cancelled 93.9 L ABG Base Excess Cancelled 4.0 FiO2 Cancelled ROOM AIR Sodium 139.2 Potassium 4.0 Chloride 97 L Carbon Dioxide 33 H Anion Gap 9 BUN 19 Creatinine 0.83 Est GFR ( Amer) > 60 Est GFR (Non-Af Amer) > 60 Glucose 105 Calcium 9.2 TSH Free T4 Free T3 pg/mL Urine Color Urine Appearance Urine pH Ur Specific [place] Urine Protein Urine Glucose (UA) Urine Ketones Urine Blood Urine Nitrite Ur Leukocyte Esterase Urine WBC (Auto) Urine RBC (Auto) 09/21/16 09/21/16 09/21/16 16:45 16:45 23:08 Creatine Kinase 1499 H 1516 H CK-MB (CK-2) 4.01 Troponin I 0.087 09/21/16 09/22/16 09/22/16 23:08 04:44 04:44 Creatine Kinase 2073 H CK-MB (CK-2) 6.13 H 8.03 H Troponin I 0.074 0.062 09/24/16 09/24/16 03:54 07:10 Creatine Kinase 1179 H CK-MB (CK-2) 2.59 Troponin I Impressions: Chest/Abdomen CTA 09/22/16 00:00 IMPRESSION: No CT angio evidence of acute pulmonary emboli or thoracic aortic dissection. Other findings as above. Results discussed with Dr. Reyes Chest X-Ray 09/24/16 06:00 IMPRESSION: NO SIGNIFICANT RADIOGRAPHIC FINDING IN THE CHEST. Head CT 09/25/16 00:00 IMPRESSION: No significant intracranial abnormalities were identified. Sinus disease as noted above Chest Fluoroscopy 09/25/16 06:00 IMPRESSION: NORMAL DIAPHRAGM EXERTION ON INSPIRATION AND EXPIRATION. Assessment & Plan - Diagnosis (1) Respiratory failure Qualifiers: Chronicity: acute Respiratory failure complication: hypoxia and hypercapnia Qualified Code(s): J96.01 - Acute respiratory failure with hypoxia Is this a current diagnosis for this admission?: Yes (2) Congestive heart failure (CHF) Qualifiers: Congestive heart failure type: diastolic Congestive heart failure chronicity: acute Qualified Code(s): I50.31 - Acute diastolic (congestive ) heart failure Is this a current diagnosis for this admission?: Yes (3) Hypertensive emergency Is this a current diagnosis for this admission?: Yes (4) Rhabdomyolysis Qualifiers: Rhabdomyolysis type: non-traumatic Qualified Code(s): M62.82 - Rhabdomyolysis Is this a current diagnosis for this admission?: Yes (5) Hypomagnesemia Is this a current diagnosis for this admission?: Yes (6) Abnormal urinalysis Is this a current diagnosis for this admission?: Yes (7) Hyperthyroidism Is this a current diagnosis for this admission?: Yes (8) Morbid obesity Qualifiers: Obesity type: unspecified obesity type Qualified Code(s): E66.01 - Morbid (severe) obesity due to excess calories Is this a current diagnosis for this admission?: Yes (9) Anxiety and depression Is this a current diagnosis for this admission?: Yes - Time Time Spent with patient: 25-34 minutes - Plan Summary Plan Summary: Recheck by magnesium. Avoid sedatives. Consult planner chief for arrangement of home BiPAP-trilogy. Send urine for culture. Discontinue Alvarez catheter.
--- NOTE | 2016-09-26 14:53 | PDOC PROGRESS REPORT ---
Subjective Progress Note for:: 09/26/16 Subjective:: lethargic Physical Exam Vital Signs: Temp Pulse Resp BP Pulse Ox 97.8 F 88 18 147/96 H 96 09/26/16 11:06 09/26/16 11:06 09/26/16 11:06 09/26/16 11:06 09/26/16 11:06 Pulse Oximeter Ambulatory Start: 09/23/16 11: 50 Freq: RTBID Status: Active Document 09/25/16 20:00 [facility] (Rec: 09/25/16 21:48 [facility] [email or web address]) Exercise Oximetry Treatment Ambulating SpO2 Charge Now No Intake & Output 09/25/16 09/26/16 09/27/16 06:59 06:59 06:59 Intake Total 290 892 Output Total 1625 250 Balance -1335 642 General appearance: PRESENT: disheveled, morbidly obese Head exam: PRESENT: atraumatic, normocephalic Eye exam: PRESENT: conjunctiva pale, EOMI Mouth exam: PRESENT: moist, neck supple, tongue midline Neck exam: ABSENT: carotid bruit, JVD, lymphadenopathy, thyromegaly Respiratory exam: PRESENT: decreased breath sounds, prolonged expiratory phas, rhonchi, symmetrical, unlabored Cardiovascular exam: PRESENT: RRR, +S1, +S2 Pulses: PRESENT: normal radial pulses GI/Abdominal exam: PRESENT: normal bowel sounds, soft. ABSENT: distended, guarding, mass, organolmegaly, rebound, tenderness Rectal exam: PRESENT: deferred Neurological exam: PRESENT: awake Skin exam: PRESENT: dry, intact, warm Results Laboratory Results: 09/26/16 03:46 09/26/16 03:46 09/25/16 09/26/16 09/26/16 18:05 03:46 03:46 WBC 4.6 RBC 4.88 Hgb 13.9 Hct 41.5 MCV 85 MCH 28.5 MCHC 33.5 RDW 14.4 H Plt Count 139 L Seg Neutrophils % 45.0 Lymphocytes % 40.1 Monocytes % 13.4 H Eosinophils % 1.1 Basophils % 0.4 Absolute Neutrophils 2.1 Absolute Lymphocytes 1.8 Absolute Monocytes 0.6 Absolute Eosinophils 0.0 Absolute Basophils 0.0 Carbonic Acid HCO3/H2CO3 Ratio ABG pH ABG pCO2 ABG pO2 ABG HCO3 ABG O2 Saturation ABG Base Excess FiO2 Sodium Potassium Chloride Carbon Dioxide Anion Gap BUN Creatinine Est GFR ( Amer) Est GFR (Non-Af Amer) Glucose Calcium TSH 2.08 Free T4 1.50 Free T3 pg/mL 4.30 Urine Color YELLOW Urine Appearance CLEAR Urine pH 5.0 Ur Specific [place] 1.012 Urine Protein NEGATIVE Urine Glucose (UA) NEGATIVE Urine Ketones NEGATIVE Urine Blood LARGE H Urine Nitrite NEGATIVE Ur Leukocyte Esterase TRACE H Urine WBC (Auto) 8 Urine RBC (Auto) 5 09/26/16 09/26/16 09/26/16 03:46 05:40 06:55 WBC RBC Hgb Hct MCV MCH MCHC RDW Plt Count Seg Neutrophils % Lymphocytes % Monocytes % Eosinophils % Basophils % Absolute Neutrophils Absolute Lymphocytes Absolute Monocytes Absolute Eosinophils Absolute Basophils Carbonic Acid Cancelled 1.38 H HCO3/H2CO3 Ratio Cancelled 21:1 ABG pH Cancelled 7.42 ABG pCO2 Cancelled 45.9 H ABG pO2 Cancelled 68.5 L ABG HCO3 Cancelled 29.2 H ABG O2 Saturation Cancelled 93.9 L ABG Base Excess Cancelled 4.0 FiO2 Cancelled ROOM AIR Sodium 139.2 Potassium 4.0 Chloride 97 L Carbon Dioxide 33 H Anion Gap 9 BUN 19 Creatinine 0.83 Est GFR ( Amer) > 60 Est GFR (Non-Af Amer) > 60 Glucose 105 Calcium 9.2 TSH Free T4 Free T3 pg/mL Urine Color Urine Appearance Urine pH Ur Specific [place] Urine Protein Urine Glucose (UA) Urine Ketones Urine Blood Urine Nitrite Ur Leukocyte Esterase Urine WBC (Auto) Urine RBC (Auto) 09/21/16 09/21/16 09/21/16 16:45 16:45 23:08 Creatine Kinase 1499 H 1516 H CK-MB (CK-2) 4.01 Troponin I 0.087 09/21/16 09/22/16 09/22/16 23:08 04:44 04:44 Creatine Kinase 2073 H CK-MB (CK-2) 6.13 H 8.03 H Troponin I 0.074 0.062 09/24/16 09/24/16 03:54 07:10 Creatine Kinase 1179 H CK-MB (CK-2) 2.59 Troponin I Impressions: Chest/Abdomen CTA 09/22/16 00:00 IMPRESSION: No CT angio evidence of acute pulmonary emboli or thoracic aortic dissection. Other findings as above. Results discussed with Dr. Reyes Chest X-Ray 09/24/16 06:00 IMPRESSION: NO SIGNIFICANT RADIOGRAPHIC FINDING IN THE CHEST. Head CT 09/25/16 00:00 IMPRESSION: No significant intracranial abnormalities were identified. Sinus disease as noted above Chest Fluoroscopy 09/25/16 06:00 IMPRESSION: NORMAL DIAPHRAGM EXERTION ON INSPIRATION AND EXPIRATION. Assessment & Plan - Diagnosis (1) Respiratory failure Qualifiers: Chronicity: acute Respiratory failure complication: hypoxia and hypercapnia Qualified Code(s): J96.01 - Acute respiratory failure with hypoxia Is this a current diagnosis for this admission?: YesPlan: Patient is demonstrating hypercapnia and hypoxia despite the use of BiPAP.He has a restrictive defect based on his BMI 44(Obesity-Hypoventilation syndrome) .He will need a Trilogy AVAPPS/AE in order to obtain adequate volumes and MIN Ventilation
[2016-09-26 16:39] LABS: JO-1 ANTIBODY <0.2 AI (0.0-0.9)
[2016-09-26] MEDS: LANSOPRAZOLE 30 MG TAB.RAP.DR PO SCH (18:21)
[2016-09-27 04:27] LABS: HEMATOCRIT 41.7 % (37.9-51.0); HEMOGLOBIN 14.1 g/dL (13.5-17.0); HGB HCT DIFFERENCE 0.6; MEAN CORPUSCULAR HEMOGLOBIN 28.5 pg (27.0-33.4); MEAN CORPUSCULAR HGB CONC 33.8 g/dL (32.0-36.0); MEAN CORPUSCULAR VOLUME 84 fl (80-97); RED BLOOD COUNT 4.94 10^6/uL (4.35-5.55); RED CELL DISTRIBUTION WIDTH 14.4 % (11.5-14.0); WHITE BLOOD COUNT 5.6 10^3/uL (4.0-10.5)
[2016-09-27] MEDS: LANSOPRAZOLE 30 MG TAB.RAP.DR PO SCH ×2 (05:16→16:49)
[2016-09-27] MEDS ORDERED: DILTIAZEM HCL 120 MG CAP.SR.24H PO SCH (10:00)
[2016-09-27] MEDS ORDERED: FUROSEMIDE 40 MG TABLET PO SCH (10:00)
--- NOTE | 2016-09-27 11:13 | Pulmonary Function Test ---
Pulmonary Function Test Date of Procedure:: 09/27/16 INDICATION:: Dyspnea Referring Provider: Dr. Shipman Medical Records Analyst: Heide Hawley FINANCE TEACHER, CONFIGURATION MANAGEMENT MANAGER - Report Spirometry: FVC 2.15 L 56% postbronchodilator therapy 2.24 L 58% FEV1 1.70 L 53% postbronchodilator therapy 1.84 L 58% FEV1/FVC % 79 postbronchodilator therapy 82 predicted 83 Total lung capacity 3.10 L 54% Vital capacity 2.15 L 56% Inspiratory capacity 1.49 FRC 1.60 71% ERV 0.16 Residual volume 0.95 L 54% RV/TLC % 31 predicted 31 Diffusion capacity 16.3 52% DLCO/VA 7.3 169% Lung Volume: Total lung capacity 3.10 L 54% Vital capacity 2.15 L 56% Inspiratory capacity 1.49 FRC 1.60 71% ERV 0.16 Residual volume 0.95 L 54% RV/TLC % 31 predicted 31 Diffusion Capactity: Diffusion capacity 16.3 52% DLCO/VA 7.3 169% Impression: Based on the FEV1 there is a moderate obstructive ventilatory defect expiratory time FVC was less than 5 seconds to the degree of obstruction may be underestimated is moderate restrictive ventilatory defect with no hyperinflation or air trapping and a moderate decrease in diffusion capacity.
--- NOTE | 2016-09-27 11:45 | PDOC PROGRESS REPORT ---
Subjective Progress Note for:: 09/27/16 Subjective:: Patient seems to be doing better with gradual improvement. Patient still however short of breath on mild exertion, but claims improvement since yesterday. Pt is denying any chest arm or neck discomfort. Patient denying any PND, orthopnea. Patient denied any sustained palpitations, dizziness, syncope, near syncope. Patient denying any fever chills. Patient denying any other significant discomfort. Patient is maintaining sinus rhythm. Review of systems: Rest review of systems negative. Medications: Medications have been reviewed. Ex Nuclear stress test procedure was explained to the patient in detail. Risks benefits were discussed and informed consent was obtained. Alternatives were discussed. Patient informed that based on risk factors, physical exam, lab data findings and symptoms there is at least intermediate probability of underlying CAD. Nuclear stress test procedure was therefore scheduled. Physical Exam Vital Signs: Temp Pulse Resp BP Pulse Ox 98.4 F 76 19 130/78 H 100 09/27/16 07:26 09/27/16 07:26 09/27/16 07:26 09/27/16 07:26 09/27/16 07:26 Pulse Oximeter Ambulatory Start: 09/23/16 11: 50 Freq: RTBID Status: Active Document 09/25/16 20:00 [facility] (Rec: 09/25/16 21:48 [facility] [email or web address]) Exercise Oximetry Treatment Ambulating SpO2 Charge Now No Intake & Output 09/26/16 09/27/16 09/28/16 06:59 06:59 06:59 Intake Total 892 1208 Output Total 250 675 Balance 642 533 Weight 122.4 kg Exam: GENERAL: well-nourished and in no acute distress. Alert and oriented x3 HEAD: Atraumatic, normocephalic. EYES: Pupils equal round and reactive to light, extraocular movements intact, sclera anicteric, conjunctiva are normal. ENT: TMs normal, nares patent, oropharynx clear without exudates. Moist mucous membranes. No oral ulcerations or bleeding gums noted NECK: supple without lymphadenopathy. Trachea is central. No cervical or axillary lymphadenopathy noted. Carotids are 2+, JVD 8-10 CM LUNGS: Respiration seems nonlabored, no significant accessory muscle action noted. Breath sounds clear to auscultation bilaterally and equal noted. No wheezes rales or rhonchi noted. No significant dullness noted on percussion. CHEST: Palpation of the chest wall shows no significant chest wall tenderness. No other significant abnormalities noted. 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 ABDOMEN: Soft, no significant tenderness appreciated, normoactive bowel sounds. No guarding, no rebound. No rigidity noted . No masses appreciated. EXTREMITIES: Pedal pulses are 1-2+, no calf tenderness noted. No clubbing or cyanosis.1+ pedal edema noted NEUROLOGICAL: Focused neurological exam showed no significant neurologic deficit. Normal speech, no focal weakness appreciated. PSYCH: Normal mood, normal affect. Judgment and insight within normal limits. SKIN: No significant ecchymosis, rash, ulcerations or signs of pruritus noted. MUSCULOSKELETAL EXAM: No significant joint swelling noted. Results Laboratory Results: 09/27/16 03:43 09/26/16 03:46 09/26/16 09/27/16 03:46 03:43 WBC 5.6 RBC 4.94 Hgb 14.1 Hct 41.7 MCV 84 MCH 28.5 MCHC 33.8 RDW 14.4 H Plt Count 163 Magnesium 1.6 09/21/16 09/21/16 09/21/16 16:45 16:45 23:08 Creatine Kinase 1499 H 1516 H CK-MB (CK-2) 4.01 Troponin I 0.087 09/21/16 09/22/16 09/22/16 23:08 04:44 04:44 Creatine Kinase 2073 H CK-MB (CK-2) 6.13 H 8.03 H Troponin I 0.074 0.062 09/24/16 09/24/16 03:54 07:10 Creatine Kinase 1179 H CK-MB (CK-2) 2.59 Troponin I Impressions: Chest/Abdomen CTA 09/22/16 00:00 IMPRESSION: No CT angio evidence of acute pulmonary emboli or thoracic aortic dissection. Other findings as above. Results discussed with Dr. Reyes Chest X-Ray 09/24/16 06:00 IMPRESSION: NO SIGNIFICANT RADIOGRAPHIC FINDING IN THE CHEST. Head CT 09/25/16 00:00 IMPRESSION: No significant intracranial abnormalities were identified. Sinus disease as noted above Chest Fluoroscopy 09/25/16 06:00 IMPRESSION: NORMAL DIAPHRAGM EXERTION ON INSPIRATION AND EXPIRATION. Assessment & Plan - Diagnosis (1) Congestive heart failure (CHF) Qualifiers: Congestive heart failure type: diastolic Congestive heart failure chronicity: acute Qualified Code(s): I50.31 - Acute diastolic (congestive ) heart failure Is this a current diagnosis for this admission?: Yes (2) Hypertensive emergency Is this a current diagnosis for this admission?: Yes (3) Respiratory failure Qualifiers: Chronicity: acute Respiratory failure complication: hypoxia and hypercapnia Qualified Code(s): J96.01 - Acute respiratory failure with hypoxia Is this a current diagnosis for this admission?: Yes (4) Hypertension Qualifiers: Hypertension type: essential hypertension Qualified Code(s): I10 - Essential (primary) hypertension Is this a current diagnosis for this admission?: Yes (5) Obesity Qualifiers: Obesity severity: unspecified obesity severity Is this a current diagnosis for this admission?: Yes (6) Elevated troponin I level Is this a current diagnosis for this admission?: Yes (7) Sleep apnea Qualifiers: Sleep apnea type: unspecified type Qualified Code(s): G47.30 - Sleep apnea, unspecified Is this a current diagnosis for this admission?: Yes - Notes Notes: Congestive heart failure: Diastolic CHF with significant contribution from right heart failure secondary to obesity hypoventilation syndrome and possible pulmonary hypertension. Continue Lasix 40 mg by mouth daily. Hypertension emergency: Blood pressure under better control. Obesity: Patient seems to have obesity hypoventilation syndrome and also significant sleep apneas syndrome. Dr. Ann is following. Respiratory failure: Patient has both hypercapnic and hypoxic respiratory failure. Continue intermittent positive pressure ventilatory support. Abnormal electrocardiogram: Patient has nonspecific T-wave inversion. To be evaluated further with a nuclear stress test which was performed today. Results are pending. Abnormal troponin levels: To be evaluated further with a nuclear stress test. This amount of elevation could be just related to respiratory failure and CHF. Patient did have a nuclear stress test. The results are pending. Dyspnea: Most likely obesity obesity and deconditioning but need to rule out any ischemia equivalent as cause of his dyspnea. Patient had a nuclear stress test, results are pending. Sleep apnea syndrome: This is suspect that based on patient's symptoms of intermittent snoring, daytime fatigue and somnolence. Patient also has difficulty falling asleep and staying asleep. Patient has obesity and oropharyngeal exams suggest high probability of underlying sleep apnea syndrome. Patient would benefit from a sleep study and this can be scheduled as an outpatient. - Time Time with patient: Greater than 35 minutes - CODE STATUS was discussed, patient remains full code. Surrogate decision-maker unchanged. Multiple medical problems were addressed.More than 50% of the time spent coordinating care, discussing management plans with involved caregivers. Management plans discussed with involved personnels. Medical decision making was of moderate complexity.
[2016-09-27] MEDS: MAGNESIUM OXIDE 400 MG TABLET PO SCH ×2 (12:54→17:04)
[2016-09-27] MEDS: ASPIRIN 325 MG TABLET, ENT COATED PO SCH (12:55)
[2016-09-27] MEDS: AZITHROMYCIN 250 MG TABLET PO SCH (12:56)
--- NOTE | 2016-09-27 13:07 | DRAGON STRESS TEST REPORT ---
INTRAVENOUS LEXISCAN CARDIOLITE STRESS TEST USING SINGLE PHOTON EMMISION COMPUTERIZED TOMOGRAPHIC. DATE OF PROCEDURE: September 27, 2016 INDICATION : Hypertension, CHF, abnormal troponin I CARDIAC RISK FACTORS: Tobacco abuse, hypertension RESTING EKG: Sinus rhythm with minor nonspecific ST-T changes STRESS EKG: No significant changes noted with LexiScan bolus REASON FOR TERMINATION: Protocol. PROCEDURE REPORT: Baseline heart rate 84 beats per minute with blood pressure of 136/93. Patient had no significant complaints. Heart rate at 2 minutes post bolus 106 with a blood pressure of a 142/86. 3 minutes post bolus heart rate 96 with blood pressure of 135/90. No significant EKG changes were noted. Patient had no significant complaints during the procedure or postprocedure. CONCLUSIONS: Normal EKG and hemodynamic response to IV LexiScan. NUCLEAR DATA: At rest the patient was given 15.11 millicuries of technetium 99 sestamibi injected intravenously. As per protocol rest gated SPECT images were obtained. Subsequently the patient was given intravenous LexiScan at a dose of 0.4 mg in 5 mL intravenously, followed by flush with normal saline. Subsequently the stress dose of 42.1 millicuries of technetium 99 sestamibi was injected intravenously. As per protocol stress gated images were obtained. NUCLEAR INTERPRETATION: Both raw and processed data were used for interpretation. Visual, qualitative, computer-generated quantitative data was used. There was good myocardial uptake of technetium compound. Motion artifact and soft tissue attenuations were noted. Increased visceral uptake was noted. Increased diaphragmatic attenuation artifact was also noted. No definitive areas of transient perfusion defect noted. No definitive areas of fixed perfusion defect or scars noted. EKG gated imaging showed LV EF at 44 %, rest and stress gated EF similar visually. T. I D. ratio was 1.10. Lung heart ratio noted to be within normal limits 0.37. No significant extracardiac and abnormal radiotracer activities were noted. RV free wall uptake was noted to be mildly increased. IMPRESSION: Also refer to comments under nuclear interpretation. Also test results needs to be interpreted in the context of pretest probability. 1. There is no definitive scintigraphic evidence of LexiScan induced myocardial ischemia. 2. There is no definitive scintigraphic evidence of myocardial infarction/scar. 3. EKG gated imaging shows left ejection fraction of approximately 44 %. 4. Clinical correlation requested as occasionally single vessel disease or balanced ischemia could be missed. In approximately 10% of the cases Lexiscan may not cause adequate vasodilatory stress. RECOMMENDATIONS: Aggressive risk factor modification, medical therapy. Clinical correlation with echocardiogram derived ejection fraction. Inability to exercise by itself can lead to increased cardiovascular event risks. Consider cardiology consultation if clinically indicated. I AM AVAILABLE FOR CARDIOLOGY CONSULTATION AND FOLLOWUP IF REQUESTED BY PMD Mandy Stauffer M.D., [facility] Casino Manager cash applications associate, Board certified in cardiovascular diseases, Nuclear cardiology, Echocardiography Cardiac CT and cardiac MRI Ph. [phone] [facility]
--- NOTE | 2016-09-27 16:26 | PDOC DISCHARGE SUMMARY ---
General - Admit/Disc Date/PCP Admission Date/Primary Care Provider: 09/21/16 13:47 Discharge Date: 09/27/16 - Discharge Diagnosis (1) Respiratory failure Is this a current diagnosis for this admission?: Yes (2) Congestive heart failure (CHF) Is this a current diagnosis for this admission?: Yes (3) Hypertensive emergency Is this a current diagnosis for this admission?: Yes (4) Rhabdomyolysis Is this a current diagnosis for this admission?: Yes (5) Hypomagnesemia Is this a current diagnosis for this admission?: Yes (6) Abnormal urinalysis Is this a current diagnosis for this admission?: Yes (7) Hyperthyroidism Is this a current diagnosis for this admission?: Yes (8) Morbid obesity Is this a current diagnosis for this admission?: Yes (9) Anxiety and depression Is this a current diagnosis for this admission?: Yes - Additional Information Resuscitation Status: Full Code Discharge Diet: Cardiac - low fat, low salt Discharge Activity: Activity As Tolerated, Balance Activity w/Rest, Weigh Daily Home Medications: Aspirin [Ecotrin 325 mg EC Tablet] 325 mg PO DAILY tabec 09/27/16 Diltiazem HCl [Cardizem Cd 120 mg Capsule] 120 mg PO DAILY #30 cap.sr.24h Furosemide [Lasix] 40 mg PO DAILY #30 tablet 09/27/16 Lisinopril 20 mg PO DAILY #30 tablet 09/27/16 Magnesium Oxide [Mag-Ox 400 mg Tablet] 400 mg PO BID #10 tablet 09/27/16 Additional Information: BIPAP/Trilogy at night History of Present Illness Patient complains of: Shortness of breath History of Present Illness: NORBERTO CRISOSTOMO is a 41 year old male with hypertension presenting to the hospital with sudden onset of shortness of breath with cough and whitish phlegm. He went to the emergency room for evaluation and found to have an elevated blood pressure of 240 systolic and 120 diastolic. There is reported orthopnea but no paroxysmal nocturnal dyspnea or lower extremity edema. The patient was referred for admission. For details please refer to history and physical examination performed by the admitting physician. Hospital Course Hospital Course: The patient was admitted to [facility]. The patient was placed on BiPAP for respiratory failure and shortness of breath. Blood gas shows hypercapnia and hypoxia. For blood pressure he was continued on his medication lisinopril, and as needed hydralazine was given for systolic blood pressure greater than 180. Beta aviva was likewise started. Serial cardiac enzymes were obtained and were abnormal and therefore cardiology was consulted. Electrolytes were monitored and noted hypomagnesemia and replacement was given. Cardiology reports that the elevated CPK may be brought about by the hypomagnesemia. The beta aviva initially started was shifted to Cardizem. Patient was also given diuretics. Echocardiogram was obtained showing a normal ejection fraction. The patient's blood pressure eventually improved as well as the shortness of breath. However the patient continues to remain intermittently on the ventilator. Pulmonary was consulted as the patient's blood gas showing hypoxia and hypercarbia. An impression of obesity hypoventilation syndrome was made and therefore chronic ventilator management at home with BiPAP/Trilogy was recommended. This was therefore arrangements with program planner. Cardiology eventually perform a stress test on the patient. Results did not reveal any reversible ischemia. The patient continues to improve. Course was noted for possible hyperthyroidism as the TSH was low however on follow-up his free T4, free T3 was normal. Likewise the patient's TSH normalized. Initial hyperthyroidism resolved. Course was also noted for abnormal urinalysis but the culture was negative. Patient improved in terms of shortness of breath and tolerates being off the machine during the day. The rest of the hospital stays unremarkable. The patient was arranged to have a Trilogy ventilator at home and when available he was eventually discharged. Physical Exam Vital Signs: Temp Pulse Resp BP Pulse Ox 98.3 F 83 19 127/77 H 95 09/27/16 15:24 09/27/16 15:24 09/27/16 15:24 09/27/16 15:24 09/27/16 15:24 Pulse Oximeter Ambulatory Start: 09/23/16 11: 50 Freq: RTBID Status: Active Document 09/25/16 20:00 [facility] (Rec: 09/25/16 21:48 [facility] [email or web address]) Exercise Oximetry Treatment Ambulating SpO2 Charge Now No Intake & Output 09/26/16 09/27/16 09/28/16 06:59 06:59 06:59 Intake Total 892 1208 355 Output Total 250 675 Balance 642 533 355 Weight 122.4 kg General appearance: PRESENT: no acute distress, cooperative, morbidly obese Head exam: PRESENT: normocephalic Eye exam: PRESENT: EOMI Mouth exam: PRESENT: moist, neck supple Neck exam: ABSENT: JVD Respiratory exam: PRESENT: clear to auscultation intin Cardiovascular exam: PRESENT: RRR. ABSENT: gallop GI/Abdominal exam: PRESENT: normal bowel sounds, soft. ABSENT: tenderness Extremities exam: PRESENT: pedal edema - Bilateral Neurological exam: PRESENT: alert, awake, oriented to person, oriented to place , oriented to time, oriented to situation Skin exam: PRESENT: dry, warm. ABSENT: cyanosis Results Laboratory Results: 09/27/16 03:43 09/26/16 03:46 09/27/16 03:43 WBC 5.6 RBC 4.94 Hgb 14.1 Hct 41.7 MCV 84 MCH 28.5 MCHC 33.8 RDW 14.4 H Plt Count 163 09/21/16 09/21/16 09/21/16 16:45 16:45 23:08 Creatine Kinase 1499 H 1516 H CK-MB (CK-2) 4.01 Troponin I 0.087 09/21/16 09/22/16 09/22/16 23:08 04:44 04:44 Creatine Kinase 2073 H CK-MB (CK-2) 6.13 H 8.03 H Troponin I 0.074 0.062 09/24/16 09/24/16 03:54 07:10 Creatine Kinase 1179 H CK-MB (CK-2) 2.59 Troponin I Impressions: Chest/Abdomen CTA 09/22/16 00:00 IMPRESSION: No CT angio evidence of acute pulmonary emboli or thoracic aortic dissection. Other findings as above. Results discussed with Dr. Reyes Chest X-Ray 09/24/16 06:00 IMPRESSION: NO SIGNIFICANT RADIOGRAPHIC FINDING IN THE CHEST. Head CT 09/25/16 00:00 IMPRESSION: No significant intracranial abnormalities were identified. Sinus disease as noted above Chest Fluoroscopy 09/25/16 06:00 IMPRESSION: NORMAL DIAPHRAGM EXERTION ON INSPIRATION AND EXPIRATION. Qualifiers PATEINT BEING DISCHARGED WITH ANY OF THE FOLLOWING DIAGNOSIS?: Heart Failure HF Pt being discharged on ACEI for LVEF less than 40%?: Yes HF Pt being discharged on ARBS for LVEF less than 40%?: No Reason(s) for not prescribing ARBS:: Not indicated - On BHAVNA inhibitor HF Pt with Afib discharged with Warfarin?: No Reason(s) for not prescribing Warfarin:: Not indicated - No atrial fibrillation HF Pt discharged on evidence-based Beta Aviva?: No Reason(s) for not prescribing evidence-based Beta Aviva:: Not indicated - Normal EF Plan Discharge Plan: Follow-up with primary care physician in one week. Follow-up in cardiology Dr. Stauffer in 2 weeks. Follow-up with pulmonary Dr. Ann in 1-2 weeks. Time Spent: Less than 30 Minutes
[2016-09-27 19:51] VITALS: BP 125/72
[2016-09-28 14:41] LABS: ALDOSTERONE 2.8 ng/dL (0.0-30.0)
== END 2016-09-27 20:05 | disposition home health service (06) | DRG 291 ==
LOC: ER 10:36 → EH 13:47 → UNDOADMIN 14:35 → EH 14:35 → 3N 16:29 → EH 16:29
PROVIDERS: ADMIT Internal Medicine; ATTEND Internal Medicine
PROC: 5A09457 Assistance with Respiratory Ventilation, 24-96 Consecutive Hours, Continuous Positive Airway Pressure (ICD-10-PCS; principal; 2016-09-21)
DX: I11.0 Hypertensive heart disease with heart failure (principal); J96.01 Acute respiratory failure with hypoxia; J96.02 Acute respiratory failure with hypercapnia; I16.1 Hypertensive emergency; M62.82 Rhabdomyolysis; E66.2 Morbid (severe) obesity with alveolar hypoventilation; Z68.41 Body mass index [BMI] 40.0-44.9, adult; I50.31 Acute diastolic (congestive) heart failure; E83.42 Hypomagnesemia; F41.9 Anxiety disorder, unspecified; F32.9 Major depressive disorder, single episode, unspecified; E05.90 Thyrotoxicosis, unspecified without thyrotoxic crisis or storm; M13.812 Other specified arthritis, left shoulder; M13.811 Other specified arthritis, right shoulder; J20.9 Acute bronchitis, unspecified; K21.9 Gastro-esophageal reflux disease without esophagitis; Z79.899 Other long term (current) drug therapy; Z87.891 Personal history of nicotine dependence; Z83.3 Family history of diabetes mellitus; Z82.49 Family history of ischemic heart disease and other diseases of the circulatory system
CPT/HCPCS: 36415; 36600; 70450; 71010; 71020; 71034; 71275; 78452; 80048; 80053; 80307; 81001; 82085; 82088; 82550; 82553; 82803; 83605; 83735; 83880; 84244; 84439; 84443; 84481; 84484; 85025; 85027; 86225; 86235; 87040; 87086; 93005; 93010; 93017; 93306; 94060; 94150; 94640; 94660; 94729; 96374; 96375; 99285; A9500; J0360; J1650; J2785; J2930; J3475; J3490; J7620; Q9969

== ENCOUNTER 2017-06-24 09:38 | Emergency (ER) | payer SELFPAY ==
[2017-06-24] MEDS ORDERED: HYDROCODONE/ACETAMINOPHEN 5-325 MG TABLET PO ONE (10:03)
[2017-06-24 10:22] LABS: APPEARANCE,URINE CLEAR; BILIRUBIN,URINE NEGATIVE (NEGATIVE); GLUCOSE, URINE NEGATIVE (NEGATIVE); KETONES,URINE NEGATIVE (NEGATIVE); LEUKOCYTE ESTERASE,URINE TRACE (NEGATIVE); NITRITE,URINE NEGATIVE (NEGATIVE); PROTEIN,URINE 100 mg/dL (NEGATIVE); URINE SPECIFIC GRAVITY 1.013; UROBILINOGEN,URINE NEGATIVE mg/dL (<2.0)
--- NOTE | 2017-06-24 11:40 | RADIOLOGY REPORT (SQ) ---
EXAM DESCRIPTION: CT LTD RENAL STONE PROTOCOL ON COMPLETED DATE/TIME: 06/24/2017 11:31 am REASON FOR STUDY: right flank pain COMPARISON: None. TECHNIQUE: CT scan of the abdomen and pelvis performed without intravenous or oral contrast. Images reviewed with lung, soft tissue, and bone windows. Reconstructed coronal and sagittal MPR images revi ewed. All images stored on PACS. All CT scanners at this facility use dose modulation, iterative reconstruction, and/or weight based d osing when appropriate to reduce radiation dose to as low as reasonably achievable (ALARA). [facility]: Dose Right [facility]: CareDose [facility]: Dose Right [facility]: Teradose 4D [facility]: Smart [employer] RADIATION DOSE: Up-to-date CT equipment and radiation dose reduction techniques were employed. CTDIv ol: 12.2 mGy. DLP: 652 mGy-cm.mGy. LIMITATIONS: None. FINDINGS: LOWER CHEST: No significant findings. No nodules or infiltrates. NON-CONTRASTED LIVER, SPLEEN, ADRENALS: Evaluation limited by lack of IV contrast. No identified sign ificant masses. PANCREAS: No masses. No peripancreatic inflammatory changes. GALLBLADDER: No identified stones by CT criteria. No inflammatory changes to suggest cholecystitis. RIGHT KIDNEY AND URETER: No suspicious masses. Assessment limited by lack of IV contrast. No signif icant calcifications. No hydronephrosis or hydroureter. LEFT KIDNEY AND URETER: No suspicious masses. Assessment limited by lack of IV contrast. No signifi cant calcifications. No hydronephrosis or hydroureter. AORTA AND RETROPERITONEUM: No aneurysm. No retroperitoneal masses or adenopathy. BOWEL AND PERITONEAL CAVITY: No obvious masses or inflammatory changes. No free fluid. APPENDIX: Normal. PELVIS, BLADDER, AND ABDOMINAL WALL:No abnormal masses. No free fluid. Bladder normal. BONES: No significant findings. OTHER: No other significant finding. IMPRESSION: NO SIGNIFICANT OR ACUTE PROCESS IN THE ABDOMEN OR PELVIS. COMMENT: Quality ID # [id number]: Final reports with documentation of one or more dose reduction techniques (e.g., Automated exposure control, adjustment of the mA and/or kV according to patient size, use of iterative reconstruction technique) TECHNICAL DOCUMENTATION: JOB ID: [id number]- All Rights Reserved
[2017-06-24 11:57] LABS: ANION GAP 15 (5-19); BLOOD UREA NITROGEN 19 mg/dL (7-20); CALCIUM 9.8 mg/dL (8.4-10.2); CARBON DIOXIDE 29 mmol/L (22-30); CHLORIDE 100 mmol/L (98-107); CREATININE RESULT 0.87 mg/dL (0.52-1.25); GLUCOSE 95 mg/dL (75-110); POTASSIUM 4.6 mmol/L (3.6-5.0); SODIUM 144.2 mmol/L (137-145)
--- NOTE | 2017-06-24 12:28 | ER Document Report ---
ED General - General Chief Complaint: Back Pain Stated Complaint: BACK PAIN Time Seen by Provider: 06/24/17 09:59 TRAVEL OUTSIDE OF THE [place] IN LAST 30 DAYS: No - HPI Patient complains to provider of: Right flank pain Notes: Patient coming in for evaluation of right flank pain. Patient also has a history of hypertension did not take his medication today. Patient states right flank pain ongoing for 1 week and denies any dysuria hematuria. Denies any trauma. States pain is worse with movement. Denies any fever chills nausea vomiting patient sitting in chair upon my evaluation. Denies any numbness or tingling denies any unilateral lower extremity weakness. - Related Data Allergies/Adverse Reactions: No Known Allergies Allergy (Verified 06/24/17 09:46) Past Medical History - Social History Smoking Status: Unknown if Ever Smoked Family History: None, Hyperlipidemia Patient has suicidal ideation: No Patient has homicidal ideation: No - Past Medical History Cardiac Medical History: Reports: Hx Hypertension Renal/ Medical History: Denies: Hx Peritoneal Dialysis Musculoskeltal Medical History: Denies Hx Arthritis, Denies Hx Gout - Immunizations Hx Diphtheria, Pertussis, Tetanus Vaccination: Yes Review of Systems - Review of Systems Constitutional: No symptoms reported EENT: No symptoms reported Cardiovascular: No symptoms reported Respiratory: No symptoms reported Gastrointestinal: No symptoms reported Genitourinary: Flank pain Male Genitourinary: No symptoms reported Musculoskeletal: No symptoms reported Skin: No symptoms reported Hematologic/Lymphatic: No symptoms reported Neurological/Psychological: No symptoms reported -: Yes All other systems reviewed and negative Physical Exam - Vital signs Vitals: Temp Pulse Resp BP Pulse Ox 98.5 F 107 H 20 184/121 H 96 06/24/17 09:47 06/24/17 09:47 06/24/17 09:47 06/24/17 09:47 06/24/17 09:47 Interpretation: Normal - General General appearance: Appears well, Alert - HEENT Head: Normocephalic, Atraumatic Eyes: Normal Pupils: PERRL - Respiratory Respiratory status: No respiratory distress Chest status: Nontender Breath sounds: Normal Chest palpation: Normal - Cardiovascular Rhythm: Regular Heart sounds: Normal auscultation Murmur: No - Abdominal Inspection: Normal Distension: No distension Bowel sounds: Normal Tenderness: Nontender Organomegaly: No organomegaly - Back Back: Normal. No: Nontender - Tenderness in the right paraspinal region right flank area reproduced to palpation. No signs of bruising contusion. - Extremities General upper extremity: Normal inspection, Nontender, Normal color, Normal ROM , Normal temperature General lower extremity: Normal inspection, Nontender, Normal color, Normal ROM , Normal temperature, Normal weight bearing. No: Gael's sign - Neurological Neuro grossly intact: Yes Cognition: Normal Orientation: AAOx4 [place]en Coma Scale Eye Opening: Spontaneous [place] Coma Scale Verbal: Oriented [place] Coma Scale Motor: Obeys Commands [place] Coma Scale Total: 15 Speech: Normal Motor strength normal: LUE, RUE, LLE, RLE Sensory: Normal - Psychological Associated symptoms: Normal affect, Normal mood - Skin Skin Temperature: Warm Skin Moisture: Dry Skin Color: Normal Course - Re-evaluation Re-evalutation: 06/24/17 13:56 The patient presents with flank pain without signs of peritonitis or other life- threatening or serious etiology. The patient appears stable for discharge and has been instructed to return immediately if the symptoms worsen in any way, or in 8-12hr if not improved for re-evaluation. The patient has been instructed to return if the symptoms worsen or change in any way. - Vital Signs Vital signs: Temp Pulse Resp BP Pulse Ox 98.5 F 99 15 158/110 H 98 06/24/17 09:47 06/24/17 12:58 06/24/17 12:58 06/24/17 12:58 06/24/17 12:58 - Laboratory Result Diagrams: 06/24/17 11:15 Laboratory results interpreted by me: 06/24/17 10:05 Urine Protein 100 H Urine Blood SMALL H Ur Leukocyte Esterase TRACE H Discharge - Discharge Clinical Impression: Flank pain Condition: Good Disposition: HOME, SELF-CARE Instructions: Flank Pain ([facility]), Ice Packs ([facility]), Low Back Pain ([facility]), Warm Packs ([facility]) Additional Instructions: At this time your laboratory studies do not show any significant pathology as the cause of your pain. CAT scan is negative for any signs of kidney stones. Nothing cannot test here is muscle strain is that the rest of her workup is negative more likely this is the cause your pain may use ice and heat to help out with your back pain he may also be take medication as prescribed return to the ER symptoms worsen Prescriptions: Hydrocodone Bit/Acetaminophen [Hydrocodon-Acetaminophen 5-325] 1 each PO Q6 #20 tablet Ibuprofen [Motrin 600 Mg Tablet] 600 mg PO TID #30 tablet Forms: Return to Work
[2017-06-24 12:58] VITALS: BP 158/110
== END 2017-06-24 13:06 | disposition home or self-care (01) ==
LOC: ER 09:38
DX: R10.9 Unspecified abdominal pain (principal); M54.9 Dorsalgia, unspecified; I10 Essential (primary) hypertension
CPT/HCPCS: 36415; 76380; 80048; 81001; 99284

== ENCOUNTER 2017-09-26 10:28 | Emergency (ER) | payer SELFPAY ==
[2017-09-26] MEDS ORDERED: HYDROCODONE/ACETAMINOPHEN 5-325 MG TABLET PO ONE (10:53)
[2017-09-26] MEDS ORDERED: HYDROCODONE/ACETAMINOPHEN 5-325 MG TABLET ONE (10:56)
[2017-09-26 11:35] LABS: ABSOLUTE BASOPHILS # (AUTO) 0.1 10^3/uL (0.0-0.2); ABSOLUTE EOSINOPHILS # (AUTO) 0.4 10^3/uL (0.0-0.6); ABSOLUTE LYMPHOCYTES (AUTO) 2.5 10^3/uL (0.5-4.7); ABSOLUTE NEUT (AUTO) 6.5 10^3/uL (1.7-8.2); BASOPHILS % (AUTO) 0.5 % (0-2); EOSINOPHILS % (AUTO) 3.6 % (0-6); HEMATOCRIT 43.3 % (37.9-51.0); HEMOGLOBIN 15.2 g/dL (13.5-17.0); LYMPHOCYTES % (AUTO) 23.8 % (13-45); MEAN CORPUSCULAR HEMOGLOBIN 29.6 pg (27.0-33.4); MEAN CORPUSCULAR HGB CONC 35.1 g/dL (32.0-36.0); MEAN CORPUSCULAR VOLUME 84 fl (80-97); MONOCYTES % (AUTO) 9.8 % (3-13); PLATELET COUNT 240 10^3/uL (150-450); RED BLOOD COUNT 5.13 10^6/uL (4.35-5.55); RED CELL DISTRIBUTION WIDTH 14.4 % (11.5-14.0); SEGMENTED NEUTROPHILS % (AUTO) 62.3 % (42-78); TOTAL CELLS COUNTED % (AUTO) 100 %; WHITE BLOOD COUNT 10.5 10^3/uL (4.0-10.5)
[2017-09-26 11:49] LABS: ALANINE AMINOTRANSFERASE 31 U/L (21-72); ALBUMIN 4.4 g/dL (3.5-5.0); ALKALINE PHOSPHATASE 106 U/L (38-126); ANION GAP 16 (5-19); ASPARTATE AMINO TRANSFERASE 28 U/L (17-59); BILIRUBIN,DIRECT 0.2 mg/dL (0.0-0.4); BILIRUBIN,TOTAL 0.6 mg/dL (0.2-1.3); BLOOD UREA NITROGEN 18 mg/dL (7-20); CALCIUM 9.8 mg/dL (8.4-10.2); CARBON DIOXIDE 27 mmol/L (22-30); CHLORIDE 101 mmol/L (98-107); GLUCOSE 89 mg/dL (75-110); POTASSIUM 4.1 mmol/L (3.6-5.0); SODIUM 143.9 mmol/L (137-145); TOTAL PROTEIN 8.1 g/dL (6.3-8.2); URIC ACID 9.4 mg/dL (3.5-8.5)
--- NOTE | 2017-09-26 11:59 | RADIOLOGY REPORT (SQ) ---
EXAM DESCRIPTION: FOOT LEFT COMPLETE COMPLETED DATE/TIME: 09/26/2017 11:31 am REASON FOR STUDY: pain/swelling COMPARISON: 08/10/2015 NUMBER OF VIEWS: Three views. TECHNIQUE: AP, lateral and oblique radiographic images acquired of the left foot. LIMITATIONS: None. FINDINGS: MINERALIZATION: Normal. BONES: No acute fracture or dislocation. No worrisome bone lesions. Small bone island in the 1st di stal phalanx. Small calcaneal spur at the insertion of the plantar aponeurosis. JOINTS: Mild degenerative changes involving the 1st metatarsophalangeal joint which appears more prom inent than on the prior study with subchondral cyst now being noted. SOFT TISSUES: Diffuse soft tissue swelling. OTHER: No other significant finding. IMPRESSION: 1. Diffuse soft tissue swelling without evidence of fracture. 2. Small calcaneal spur and mild degenerative changes involving the 1st metatarsophalangeal joint. TECHNICAL DOCUMENTATION: JOB ID: [id number] [employer]- All Rights Reserved
[2017-09-26] MEDS ORDERED: PREDNISONE 20 MG TABLET PO ONE (12:07)
[2017-09-26] MEDS ORDERED: KETOROLAC TROMETHAMINE 60 MG/2 ML SDV IM ONE (12:07)
--- NOTE | 2017-09-26 12:31 | ER Document Report ---
ED Extremity Problem, Lower - General Chief Complaint: Foot Pain Stated Complaint: FOOT PAIN Time Seen by Provider: 09/26/17 10:53 Mode of Arrival: Wheelchair Information source: Patient Notes: Patient presents complaining of severe left foot pain. He states it is constant. It is worse if touched and better if left alone. It radiates up his left leg. He states he has been told he may have gout in the past. He also states that he has not been taking his blood pressure medications. He states he is out of them. He has no prescription for them. He has no other swelling of any joints. No fevers. Pain is constant and sharp. TRAVEL OUTSIDE OF THE [place] IN LAST 30 DAYS: No - Related Data Allergies/Adverse Reactions: No Known Allergies Allergy (Verified 09/26/17 10:29) Past Medical History - General Information source: Patient - Social History Smoking Status: Current Every Day Smoker Chew tobacco use (# tins/day): No Frequency of alcohol use: None Drug Abuse: None Family History: None, Hyperlipidemia Patient has suicidal ideation: No Patient has homicidal ideation: No - Past Medical History Cardiac Medical History: Reports: Hx Hypertension Renal/ Medical History: Denies: Hx Peritoneal Dialysis Musculoskeltal Medical History: Denies Hx Arthritis, Denies Hx Gout - Immunizations Hx Diphtheria, Pertussis, Tetanus Vaccination: Yes Review of Systems - Review of Systems Constitutional: denies: Chills, Fever Cardiovascular: denies: Chest pain, Palpitations Respiratory: denies: Cough, Short of breath -: Yes All other systems reviewed and negative Physical Exam - Vital signs Vitals: Temp Pulse Resp BP Pulse Ox 98.7 F 92 22 H 179/117 H 96 09/26/17 10:38 09/26/17 10:38 09/26/17 10:38 09/26/17 10:38 09/26/17 10:38 Interpretation: Hypertensive - General General appearance: Appears well, Alert - HEENT Head: Normocephalic, Atraumatic Eyes: Normal Pupils: PERRL - Respiratory Respiratory status: No respiratory distress Chest status: Nontender Breath sounds: Normal Chest palpation: Normal - Cardiovascular Rhythm: Regular Heart sounds: Normal auscultation Murmur: No - Abdominal Inspection: Normal Distension: No distension Bowel sounds: Normal Tenderness: Nontender Organomegaly: No organomegaly - Back Back: Normal, Nontender - Extremities General upper extremity: Normal inspection, Nontender, Normal color, Normal ROM , Normal temperature General lower extremity: Tender, Normal temperature, Other - Patient's left foot is diffusely swollen. There is no appreciable erythema or warmth. It is diffusely tender but mainly about the lateral aspect. The ankle joint has no effusion and is not tender. Patient has a 2+ dorsalis pedis pulse on the left. He has normal capillary refill on the left. He does have diffuse edema of the left foot.. No: Gael's sign - Neurological Neuro grossly intact: Yes Cognition: Normal Orientation: AAOx4 Noreen Coma Scale Eye Opening: Spontaneous [place] Coma Scale Verbal: Oriented [place] Coma Scale Motor: Obeys Commands Noreen Coma Scale Total: 15 Speech: Normal Motor strength normal: LUE, RUE, LLE, RLE Sensory: Normal - Psychological Associated symptoms: Normal affect, Normal mood - Skin Skin Temperature: Warm Skin Moisture: Dry Skin Color: Normal Course - Vital Signs Vital signs: Temp Pulse Resp BP Pulse Ox 98.7 F 92 22 H 183/112 H 96 09/26/17 10:38 09/26/17 10:38 09/26/17 10:38 09/26/17 10:49 09/26/17 10:38 - Laboratory Result Diagrams: 09/26/17 11:05 09/26/17 11:05 Laboratory results interpreted by me: 09/26/17 09/26/17 11:05 11:05 RDW 14.4 H Uric Acid 9.4 H - Diagnostic Test Radiology reviewed: Image reviewed, Reports reviewed - X-ray of the left foot is unremarkable for any fracture or dislocation. Discharge - Discharge Clinical Impression: Gout attack Qualifiers: Gout site: foot Gout etiology: idiopathic Laterality: left Qualified Code(s): M10.072 - Idiopathic gout, left ankle and foot Condition: Stable Disposition: HOME, SELF-CARE Instructions: Gout ([facility]), Gout Diet ([facility]) Prescriptions: Diltiazem HCl 120 mg PO DAILY 30 Days #30 tablet Lisinopril 20 mg PO DAILY 30 Days #30 tablet Magnesium Oxide 400 mg PO BID 30 Days #60 tablet Oxycodone HCl/Acetaminophen [Percocet 5-325 mg Tablet] 1 - 2 tab PO Q4H PRN #15 tablet PRN Reason: Prednisone 60 mg PO DAILY 5 Days tablet Forms: Return to Work
[2017-09-26 12:41] VITALS: BP 186/123
== END 2017-09-26 12:42 | disposition home or self-care (01) ==
LOC: ER 10:28
DX: M10.072 Idiopathic gout, left ankle and foot (principal); M79.672 Pain in left foot; I10 Essential (primary) hypertension; F17.200 Nicotine dependence, unspecified, uncomplicated
CPT/HCPCS: 99284; 96372; 36415; 84550; 85025; 80053; 73630; J1885; J7512

== ENCOUNTER 2017-10-07 09:49 | Emergency (ER) | payer SELFPAY ==
[2017-10-07 10:03] VITALS: BP 167/109
[2017-10-07] MEDS ORDERED: OXYCODONE-ACETAMINOPHEN 5-325 MG TABLET PO ONE (10:21)
[2017-10-07] MEDS ORDERED: PREDNISONE 20 MG TABLET PO ONE (10:24)
[2017-10-07] MEDS ORDERED: SULFAMETHOXAZOLE/TRIMETHOPRIM 800-160 MG TABLET PO ONE (10:24)
[2017-10-07] MEDS ORDERED: CEPHALEXIN 500 MG CAPSULE PO ONE (10:24)
--- NOTE | 2017-10-07 10:27 | ER Document Report ---
HPI - HPI Patient complains to provider of: abscess, gout flare Onset/Duration: Persistent Quality of pain: Achy Pain Level: 4 Context: Patient presents complaining of left foot pain due to a gout flareup for the past 4 days. Patient reports an abscess that is starting to develop under his right armpit. Patient denies any fever. Patient denies any injury to the foot. Patient has a history of gout and states this is typical presentation for him. Associated Symptoms: Other - Right axillary abscess, left foot gout flareup. denies: Fever Exacerbated by: Movement, Walking Relieved by: Denies Similar symptoms previously: Yes Recently seen / treated by doctor: No - ROS ROS below otherwise negative: Yes Systems Reviewed and Negative: Yes All other systems reviewed and negative - CONSTITUTIONAL Constitutional: DENIES: Fever - RESPIRATORY Respiratory: DENIES: Coughing - GASTROINTESTINAL Gastrointestinal: DENIES: Nausea - MUSCULOSKELETAL Musculoskeletal: REPORTS: Extremity pain, Swelling - left foot - DERM Notes: abscess right axilla Past Medical History - General Information source: Patient - Social History Smoking Status: Never Smoker Frequency of alcohol use: None Drug Abuse: None Occupation: none Family History: None, Hyperlipidemia - Past Medical History Cardiac Medical History: Reports: Hx Hypertension Renal/ Medical History: Denies: Hx Peritoneal Dialysis Musculoskeltal Medical History: Denies Hx Arthritis, Reports Hx Gout Surgical Hx: Negative - Immunizations Hx Diphtheria, Pertussis, Tetanus Vaccination: Yes Vertical Provider Document - CONSTITUTIONAL Agree With Documented VS: Yes Exam Limitations: No Limitations General Appearance: WD/WN, No Apparent Distress - INFECTION CONTROL TRAVEL OUTSIDE OF THE [place] IN LAST 30 DAYS: No - HEENT HEENT: Atraumatic, Normocephalic - NECK Neck: Normal Inspection - RESPIRATORY Respiratory: Breath Sounds Normal, No Respiratory Distress O2 Sat by Pulse Oximetry: 96 - CARDIOVASCULAR Cardiovascular: Regular Rate, Regular Rhythm, No Murmur Pulses: Normal: Dorsalis pedis - MUSCULOSKELETAL/EXTREMETIES Musculoskeletal/Extremeties: MAEW, Tender - Left foot tenderness to area just inferior of lateral malleolar area, area mildly swollen and warm to touch, Edema - NEURO Level of Consciousness: Awake, Alert, Appropriate Motor/Sensory: No Motor Deficit - DERM Integumentary: Warm, Dry, Abscess - Developing abscess to right axilla, areas tender, firm and indurated with overlying erythema, no fluctuance Course - Re-evaluation Re-evalutation: 10/07/17 10:25 Patient educated on gout diet. Discussed worsening symptoms that patient should return immediately for. Patient verbalized understanding and agrees with plan of care. - Vital Signs Vital signs: Temp Pulse Resp BP Pulse Ox 98.8 F 93 18 167/109 H 96 10/07/17 10:00 10/07/17 10:00 10/07/17 10:00 10/07/17 10:00 10/07/17 10:00 Discharge - Discharge Clinical Impression: Hx of essential hypertension, Abscess Gout attack Qualifiers: Gout site: foot Gout etiology: unspecified cause Laterality: left Qualified Code(s): M10.9 - Gout, unspecified Condition: Stable Disposition: HOME, SELF-CARE Instructions: Abscess ([facility]), Cephalexin ([facility]), Gout ([facility]), Gout Diet ([facility]), Oral Narcotic Medication ([facility]), Trimethoprim-Sulfa ([facility]), Warm Packs ([facility]) Additional Instructions: Return immediately for any new or worsening symptoms Followup with your primary care provider, call tomorrow to make a followup appointment Prescriptions: Cephalexin Monohydrate [Keflex 500 mg Capsule] 500 mg PO Q6H 5 Days capsule Oxycodone HCl/Acetaminophen [Percocet 5-325 mg Tablet] 1 tab PO ASDIR PRN #15 tablet PRN Reason: Prednisone [Deltasone 20 mg Tablet] 3 tab PO DAILY 4 Days tablet Sulfamethoxazole/Trimethoprim [Bactrim Ds Tablet] 1 each PO BID #20 tablet Forms: Elevated Blood Pressure Referrals: [facility] [Provider Group] - Follow up tomorrow
== END 2017-10-07 10:51 | disposition home or self-care (01) ==
LOC: ER 09:49
DX: L02.411 Cutaneous abscess of right axilla (principal); M10.9 Gout, unspecified; I10 Essential (primary) hypertension
CPT/HCPCS: 99283; J7512

== ENCOUNTER 2017-10-16 01:38 | Emergency (ER) | payer SELFPAY ==
[2017-10-16] MEDS ORDERED: INDOMETHACIN 50 MG CAPSULE PO ONE (02:49)
[2017-10-16] MEDS ORDERED: OXYCODONE-ACETAMINOPHEN 5-325 MG TABLET PO ONE (02:50)
[2017-10-16] MEDS ORDERED: ONDANSETRON 4 MG TAB.RAPDIS PO ONE (02:50)
--- NOTE | 2017-10-16 02:53 | ER Document Report ---
HPI - HPI Patient complains to provider of: Left foot pain Pain Level: 5 Context: Patient is a 42-year-old male who comes emergency department for chief complaint of left foot pain. He states that he has been diagnosed with gout, he has had both blood work and x-rays, he states that over the past couple of days he has had increasing swelling and severe tenderness. He denies fever, injury, he denies any other complaints. He states he does not have a primary care but he was prescribed blood pressure medications and he is taking them. - CONSTITUTIONAL Constitutional: DENIES: Fever, Chills - EENT EENT: DENIES: Sore Throat, Ear Pain, Eye problems - NEURO Neurology: DENIES: Headache, Weakness, Vision blurred, Dizzinesss / Vertigo - CARDIOVASCULAR Cardiovascular: DENIES: Chest pain - RESPIRATORY Respiratory: DENIES: Trouble Breathing, Coughing - GASTROINTESTINAL Gastrointestinal: DENIES: Abdominal Pain, Black / Bloody Stools - URINARY Urinary: DENIES: Dysuria, Urgency, Frequency - MUSCULOSKELETAL Musculoskeletal: REPORTS: Extremity pain - L foot Past Medical History - General Information source: Patient - Social History Smoking Status: Former Smoker Frequency of alcohol use: None Drug Abuse: None Family History: None, Hyperlipidemia Patient has suicidal ideation: No Patient has homicidal ideation: No - Past Medical History Cardiac Medical History: Reports: Hx Hypertension Renal/ Medical History: Denies: Hx Peritoneal Dialysis Musculoskeltal Medical History: Denies Hx Arthritis, Reports Hx Gout Surgical Hx: Negative - Immunizations Hx Diphtheria, Pertussis, Tetanus Vaccination: Yes Vertical Provider Document - CONSTITUTIONAL General Appearance: WD/WN, Mild Distress - INFECTION CONTROL TRAVEL OUTSIDE OF THE [place] IN LAST 30 DAYS: No - HEENT HEENT: Atraumatic, Normal ENT Exam, Normocephalic - NECK Neck: Normal Inspection - RESPIRATORY Respiratory: Breath Sounds Normal, No Respiratory Distress O2 Sat by Pulse Oximetry: 98 - CARDIOVASCULAR Cardiovascular: Regular Rate, Regular Rhythm - GI/ABDOMEN Gastrointestinal: Abdomen Soft, Abdomen Non-Tender - BACK Back: Normal Inspection - MUSCULOSKELETAL/EXTREMETIES Musculoskeletal/Extremeties: Tender - There is soft tissue swelling over the medial ankle of the left foot along with over the top of the foot, area is very tender to the touch, range of motion of the ankle is still intact, dorsalis pedis, normal capillary refill and sensation, normal lower extremity exam otherwise. Course - Re-evaluation Re-evalutation: Patient with specific localized tenderness and swelling which is consistent with a gout flare. He has already had evaluation for this. Range of motion in place, no shiny erythema or risk factors reported suggesting septic joint. Patient was previous renal functioning testing that is unremarkable. Given indomethacin, pain medication. Discussed primary care follow-up for management of gout, discussed return precautions, patient states understanding and agreement. - Vital Signs Vital signs: Temp Pulse Resp BP Pulse Ox 99.1 F 100 16 159/109 H 98 10/16/17 01:43 10/16/17 01:43 10/16/17 01:43 10/16/17 01:43 10/16/17 01:43 Discharge - Discharge Clinical Impression: Left foot pain Condition: Stable Disposition: HOME, SELF-CARE Additional Instructions: Your examination and symptoms are consistent with a gout flare. Take medications as prescribed as directed, follow-up with the primary care referral for additional evaluation and management. Return if you worsen including spreading swelling, redness, fever, or any other concerning or worsening symptoms. Prescriptions: Morphine Sulfate [Morphine Ir 15 Mg Tablet] 15 mg PO Q4HP PRN #20 tablet PRN Reason: Indomethacin [Indocin 50 mg Capsule] 50 mg PO TID PRN #15 capsule PRN Reason: Forms: Return to Work, Elevated Blood Pressure
[2017-10-16 03:18] VITALS: BP 154/91
== END 2017-10-16 03:17 | disposition home or self-care (01) ==
LOC: ER 01:38
DX: M10.9 Gout, unspecified (principal); M79.672 Pain in left foot; I10 Essential (primary) hypertension; Z87.891 Personal history of nicotine dependence
CPT/HCPCS: 99283; S0119; J3490

== ENCOUNTER 2017-12-28 00:13 | Emergency (ER) | payer SELFPAY ==
[2017-12-28 00:58] VITALS: BP 197/132
[2017-12-28] MEDS ORDERED: HYDROMORPHONE HCL INJ/PF 2 MG/ML AMPULE IM ONE (02:00)
--- NOTE | 2017-12-28 02:03 | ER Document Report ---
ED General - General Chief Complaint: Foot Pain Stated Complaint: FOOT PAIN Time Seen by Provider: 12/28/17 01:57 TRAVEL OUTSIDE OF THE [place] IN LAST 30 DAYS: No - HPI Notes: 2-year-old male with long-standing history of gout, hypertension, presents with right foot pain. Patient describes severe pain in his right first dorsal MTP and right mid forefoot. No trauma, gradual onset today, stereotypical for previous gout presentations. No fever, chills or sweats. He is in severe pain. Nonradiating pain. No other modifying factors, no other associated symptoms, no other provocative or palliative factors. - Related Data Allergies/Adverse Reactions: No Known Allergies Allergy (Verified 10/07/17 09:50) Past Medical History - Social History Smoking Status: Unknown if Ever Smoked Family History: None, Hyperlipidemia - Medical History Notes: Includes gout - Past Medical History Cardiac Medical History: Reports: Hx Hypertension Renal/ Medical History: Denies: Hx Peritoneal Dialysis Musculoskeltal Medical History: Denies Hx Arthritis, Reports Hx Gout - Immunizations Hx Diphtheria, Pertussis, Tetanus Vaccination: Yes Review of Systems - Review of Systems Notes: Review of systems as in history of present illness, otherwise no significant headache, chest pain, abdominal pain. Physical Exam - Vital signs Vitals: Temp Pulse Resp BP Pulse Ox 98.6 F 96 20 197/132 H 96 12/28/17 00:57 12/28/17 00:57 12/28/17 00:57 12/28/17 00:57 12/28/17 00:57 - Notes Notes: General: Well devloped, no acute distress. HEENT: Normocephalic, atraumatic. Pupils equal round reactive to light. Mucosa moist. No JVD. Chest: No trauma, normal excursion. Respiratory: Good air exchange, normal excursion. Cardiac: Regular rhythm Abdomen: Soft, benign. Nondistended. Back: No asymmetry or gross abnormality. Motor: Grossly normal power and tone. Neurologic: Alert, nonfocal. Vascular: Well perfused Skin: No petechiae or purpura Remedies: Right first MTP swollen, red, anteromedial forefoot tenderness and redness with mild edema Course - Re-evaluation Re-evalutation: 12/28/17 02:16 Appearing male with likely gouty arthritis. Doubt septic arthritis. Will treat with analgesics, steroids, outpatient follow-up. I suspect his uncontrolled hypertension is due to pain. He will have it rechecked in 24 hours. - Vital Signs Vital signs: Temp Pulse Resp BP Pulse Ox 98.6 F 96 20 197/132 H 96 12/28/17 00:57 12/28/17 00:57 12/28/17 00:57 12/28/17 00:57 12/28/17 00:57 Discharge - Discharge Clinical Impression: Uncontrolled hypertension Gout Qualifiers: Gout site: foot Gout etiology: unspecified cause Chronicity: acute Laterality: right Qualified Code(s): M10.9 - Gout, unspecified Condition: Stable Disposition: HOME, SELF-CARE Instructions: Gout ([facility]), High Blood Pressure ([facility]) Prescriptions: Hydrocodone Bit/Acetaminophen [Hydrocodon-Acetaminoph 2.5-325] 1 each PO Q6 #12 tablet Prednisone [Deltasone 20 mg Tablet] 1 tab PO DAILY 5 Days tablet
== END 2017-12-28 03:29 | disposition home or self-care (01) ==
LOC: ER 00:13
DX: I10 Essential (primary) hypertension (principal); M10.9 Gout, unspecified; M79.671 Pain in right foot
CPT/HCPCS: 99283; 96372; J1170

== ENCOUNTER 2018-02-23 09:30 | Emergency (ER) | payer SELFPAY ==
[2018-02-23] MEDS ORDERED: KETOROLAC TROMETHAMINE 60 MG/2 ML SDV IM ONE (10:15)
[2018-02-23] MEDS ORDERED: DIAZEPAM 5 MG TABLET PO ONE (10:16)
--- NOTE | 2018-02-23 10:20 | ER Document Report ---
ED Neck/Back Problem - General Chief Complaint: Back Pain Stated Complaint: BACK PAIN Time Seen by Provider: 02/23/18 10:06 Mode of Arrival: Ambulatory Information source: Patient Notes: Patient is a 42-year-old male who presents with chief complaint of low back pain that radiates down his right lower extremity. Patient has reported that this is been going on for last 2 days. Patient denies any injury. Patient denies any loss of bowel or bladder. Reports no difficulties with urinating. Patient is able to ambulate however patient reports that it feels worse when he ambulates. Patient reports past medical history of hypertension and gout, patient has not taken his antihypertensives this morning. TRAVEL OUTSIDE OF THE [place] IN LAST 30 DAYS: No - Related Data Allergies/Adverse Reactions: No Known Allergies Allergy (Verified 02/23/18 09:31) Past Medical History - General Information source: Patient - Social History Smoking Status: Current Every Day Smoker Chew tobacco use (# tins/day): No Frequency of alcohol use: Social Drug Abuse: None Family History: None, Hyperlipidemia Patient has suicidal ideation: No Patient has homicidal ideation: No - Past Medical History Cardiac Medical History: Reports: Hx Hypertension Renal/ Medical History: Denies: Hx Peritoneal Dialysis Musculoskeletal Medical History: Denies Hx Arthritis, Reports Hx Gout Past Surgical History: Reports: Hx Orthopedic Surgery - Rt knee - Immunizations Hx Diphtheria, Pertussis, Tetanus Vaccination: Yes Review of Systems - Review of Systems Constitutional: No symptoms reported EENT: No symptoms reported Cardiovascular: No symptoms reported Respiratory: No symptoms reported Gastrointestinal: No symptoms reported Genitourinary: No symptoms reported Male Genitourinary: No symptoms reported Musculoskeletal: See HPI Skin: No symptoms reported Hematologic/Lymphatic: No symptoms reported Neurological/Psychological: No symptoms reported Physical Exam - Vital signs Vitals: Temp Pulse Resp BP Pulse Ox 98.9 F 100 20 169/112 H 97 02/23/18 09:36 02/23/18 09:36 02/23/18 09:36 02/23/18 09:36 02/23/18 09:36 - Notes Notes: PHYSICAL EXAMINATION: GENERAL: Well-appearing, well-nourished and in no acute distress. HEAD: Atraumatic, normocephalic. EYES: Pupils equal round and reactive to light, extraocular movements intact, sclera anicteric, conjunctiva are normal. ENT: Nares patent, oropharynx clear without exudates. Moist mucous membranes. NECK: Normal range of motion, supple without lymphadenopathy LUNGS: Breath sounds clear to auscultation bilaterally and equal. No wheezes rales or rhonchi. HEART: Regular rate and rhythm without murmurs ABDOMEN: Soft, nontender, nondistended abdomen. No guarding, no rebound. No masses appreciated. Musculoskeletal: Normal range of motion, no pitting or edema. No cyanosis. Tenderness to palpation to right paraspinous muscle. NEUROLOGICAL: Cranial nerves grossly intact. Normal speech, normal gait. Normal sensory, motor exams PSYCH: Normal mood, normal affect. SKIN: Warm, Dry, normal turgor, no rashes or lesions noted. Course - Re-evaluation Re-evalutation: 42-year-old male patient presenting with complaint of low back pain that radiates down his right lower extremity. Patient denies any injury. Patient has tenderness to the right paraspinous area. Patient denies any loss of bowel or bladder. Will give patient 60 mg of Toradol IM as well as 5 mg of Valium p.o. and reevaluate at that time as this is consistent with a musculoskeletal strain/spasm 02/23/18 10:56 Patient reports significant reduction of his pain after administration of Toradol and Valium. Will discharge patient home in stable condition. - Vital Signs Vital signs: Temp Pulse Resp BP Pulse Ox 98.9 F 100 20 169/112 H 97 02/23/18 09:36 02/23/18 09:36 02/23/18 09:36 02/23/18 09:36 02/23/18 09:36 Discharge - Discharge Clinical Impression: Spasm of lumbar paraspinous muscle Condition: Stable Disposition: HOME, SELF-CARE Additional Instructions: LOW BACK PAIN: Three out of every four people will have an episode of disabling back pain during their lifetime. Most commonly the pain is due to straining of the muscles and ligaments in the low back. Usual treatment includes: (1) Rest on a firm surface. Avoid lying on your stomach. (2) Ice pack the painful area. After a few days, gentle heat may be used intermittently to relax the area, or ice packs can be continued. (3) Medication may be needed -- muscle relaxers and antiinflammatory medicines are commonly used. (4) As the back improves, exercises are prescribed to strengthen the back and abdominal muscles. Your doctor will advise you on the proper care for your back at each stage in your recovery. You may be better in a few days -- or healing may take several weeks. If new symptoms of a "herniated disc" (radiation of pain, numbness, or tingling down the back of the leg or weakness in the leg) occur, you should be re-examined. Further testing may be necessary. PAIN MEDICATION INJECTION: You have received an injection of a pain medication. You should experience significant pain relief within 45 minutes. If this injection was a narcotic -- it will impair your judgement, slow your reaction time and make you sleepy (as well as relieve your pain). Narcotics also can cause nausea. You should not drive, work with machinery, or perform any task requiring mental alertness until all effects of the medication are gone -- six to eight hours. Do not take any alcohol, or sedatives, and do not take any other medication without checking with your physician. ORAL NARCOTIC MEDICATION: You have been given a prescription for pain control. This medication is a narcotic. It's best taken with food, as nausea can result if taken on an empty stomach. Don't operate machinery or drive within six hours of taking this medication. Do not combine this medicine with alcohol, or with any medication which can cause sedation (such as cold tablets or sleeping pills) unless you get permission from the physician. Narcotics tend to cause constipation. If possible, drink plenty of fluids and eat a diet high in fiber and fruits. Please be aware that prescription narcotics also have the potential for abuse. People become addicted to these medications because of the general sense of wellbeing that they induce. This feeling along with a significant reduction in tension, anxiety, and aggression provides a stimulating seductive quality to these drugs. Once your pain is under control, we encourage you to discard your unused narcotics. MUSCLE RELAXERS: Muscle relaxing medications are usually prescribed for acute muscle spasm or injury to the neck and back. They are often combined with antiinflammatory pain medication for increased relief. You may stop the muscle relaxer when the pain and stiffness have improved. Start the medication again if spasms recur. Muscle relaxers may cause drowsiness, especially with the first dose. Do not operate machinery or drive while under the effects of the medication. Most muscle relaxers last up to 24 hours. Do not combine the medication with alcohol. ICE PACKS: Apply ice packs frequently against the painful area. Many different schedules are recommended, such as "20 minutes on, 20 minutes off" or "one hour ice, two hours rest." If you need to work, you may need to go longer between ice treatments. You should plan to have the area ice packed AT LEAST one fourth of the time. The ice should be applied over the wrap, tape, or splint, or over a layer of cloth -- not directly against the skin. Some ice bags have a built-in cloth and can be put directly on the skin. WARM PACKS: After approximately two days, apply gentle heat (such as a heating pad or hot water bottle) for about 20 to 30 minutes about every two hours -- at least four times daily. Warmth and elevation will help you make a more rapid recovery , and will ease the pain considerably. Do not use HOT heat, and never apply heat for longer than 30 minutes. The continuous heat can invisibly damage skin and muscles -- even when no burn is seen on the surface. Damaged muscles can make you MORE sore. FOLLOW-UP CARE: If you have been referred to a physician for follow-up care, call the physician s office for an appointment as you were instructed or within the next two days. If you experience worsening or a significant change in your symptoms, notify the physician immediately or return to the Emergency Department at any time for re-evaluation. Prescriptions: Cyclobenzaprine HCl [Flexeril 10 mg Tablet] 10 mg PO Q8 PRN #20 tablet PRN Reason: Muscle Spasms Hydrocodone/Acetaminophen [Hydrocodon-Acetaminophen 5-325] 1 each PO Q4 PRN #12 tablet PRN Reason: For Pain Ibuprofen 800 mg PO Q8 #30 tablet Forms: Return to Work
[2018-02-23 11:15] VITALS: BP 180/118
== END 2018-02-23 11:07 | disposition home or self-care (01) ==
LOC: ER 09:30
DX: M62.830 Muscle spasm of back (principal)
CPT/HCPCS: 99283; 96372; J1885

== ENCOUNTER 2018-04-25 10:03 | Emergency (ER) | payer SELFPAY ==
[2018-04-25 10:13] VITALS: BP 157/109
[2018-04-25] MEDS ORDERED: COLCHICINE 0.6 MG TABLET PO ONE (10:22)
[2018-04-25] MEDS ORDERED: HYDROCODONE/ACETAMINOPHEN 5-325 MG TABLET PO ONE (10:22)
[2018-04-25] MEDS ORDERED: KETOROLAC TROMETHAMINE 60 MG/2 ML SDV IM ONE (10:22)
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
== END 2018-04-25 10:59 | disposition home or self-care (01) ==
LOC: ER 10:03
DX: M10.072 Idiopathic gout, left ankle and foot (principal); M79.672 Pain in left foot; M79.89 Other specified soft tissue disorders; F17.200 Nicotine dependence, unspecified, uncomplicated; I10 Essential (primary) hypertension
CPT/HCPCS: 99283; 96372; J1885

== ENCOUNTER 2018-07-10 03:10 | Emergency (ER) | payer SELFPAY ==
[2018-07-10] MEDS ORDERED: METHYLPREDNISOLONE INJ 125 MG/2 ML SDV IV ONE (03:35)
[2018-07-10] MEDS ORDERED: IPRATROPIUM/ALBUTEROL 0.5-2.5 MG/3 ML AMPUL NEB ONE (03:35)
--- NOTE | 2018-07-10 04:18 | RADIOLOGY REPORT (SQ) ---
CLINICAL HISTORY: SOB COMPARISON: September 24, 2016. TECHNIQUE: XR CHEST 1 VIEW 07/10/2018 3:36 AM ROLL ON MAN FINDINGS: Cardiac silhouette is enlarged. Lungs are clear without consolidation, atelectasis, mass or edema. There is no pleural effusion. There is no pneumothorax. There are no acute osseous findings. IMPRESSION: Clear lungs.
[2018-07-10 04:32] LABS: ABSOLUTE BASOPHILS # (AUTO) 0.1 10^3/uL (0.0-0.2); ABSOLUTE EOSINOPHILS # (AUTO) 0.4 10^3/uL (0.0-0.6); ABSOLUTE LYMPHOCYTES (AUTO) 2.8 10^3/uL (0.5-4.7); ABSOLUTE MONOCYTES (AUTO) 0.6 10^3/uL (0.1-1.4); ABSOLUTE NEUT (AUTO) 4.4 10^3/uL (1.7-8.2); BASOPHILS % (AUTO) 1.4 % (0-2); EOSINOPHILS % (AUTO) 5.1 % (0-6); HEMATOCRIT 42.9 % (37.9-51.0); HEMOGLOBIN 14.8 g/dL (13.5-17.0); LYMPHOCYTES % (AUTO) 33.8 % (13-45); MEAN CORPUSCULAR HEMOGLOBIN 29.3 pg (27.0-33.4); MEAN CORPUSCULAR HGB CONC 34.5 g/dL (32.0-36.0); MEAN CORPUSCULAR VOLUME 85 fl (80-97); MONOCYTES % (AUTO) 7.1 % (3-13); PLATELET COUNT 205 10^3/uL (150-450); RED BLOOD COUNT 5.05 10^6/uL (4.35-5.55); RED CELL DISTRIBUTION WIDTH 13.7 % (11.5-14.0); SEGMENTED NEUTROPHILS % (AUTO) 52.6 % (42-78); TOTAL CELLS COUNTED % (AUTO) 100 %; WHITE BLOOD COUNT 8.4 10^3/uL (4.0-10.5)
[2018-07-10 04:47] LABS: ALANINE AMINOTRANSFERASE 33 U/L (21-72); ALKALINE PHOSPHATASE 105 U/L (38-126); ANION GAP 12 (5-19); ASPARTATE AMINO TRANSFERASE 33 U/L (17-59); BILIRUBIN,DIRECT 0.2 mg/dL (0.0-0.4); BILIRUBIN,TOTAL 0.8 mg/dL (0.2-1.3); BLOOD UREA NITROGEN 11 mg/dL (7-20); CALCIUM 8.9 mg/dL (8.4-10.2); CARBON DIOXIDE 30 mmol/L (22-30); CHLORIDE 101 mmol/L (98-107); GLUCOSE 143 mg/dL (75-110); POTASSIUM 4.3 mmol/L (3.6-5.0); SODIUM 143.2 mmol/L (137-145); TOTAL PROTEIN 8.1 g/dL (6.3-8.2)
--- NOTE | 2018-07-10 06:02 | ER Document Report ---
ED Respiratory Problem - General Chief Complaint: Breathing Difficulty Stated Complaint: DIFFICULTY BREATHING Time Seen by Provider: 07/10/18 03:27 Notes: Patient is a 43-year-old male presented to the emergency department complaining of increasing shortness of breath and generalized chest tightness that started at 130 this morning. Patient states he also has had a generalized cough and congestion for the last couple of days. Patient states he did take his albuterol x3 prior to arrival, denies any fevers. Patient states he is supposed to wear CPAP at night for sleep apnea but he does not wear his CPAP machine is. States he has been without it for months now. Past medical history: COPD, hypertension, gout, sleep apnea Medications: Albuterol, lisinopril Allergies: None Patient states he stopped smoking almost 2 years ago, admits to occasional EtOH use, denies illicit drug use. TRAVEL OUTSIDE OF THE [place] IN LAST 30 DAYS: No - Related Data Allergies/Adverse Reactions: No Known Allergies Allergy (Verified 04/25/18 10:04) Past Medical History - General Information source: Patient - Social History Smoking Status: Former Smoker Chew tobacco use (# tins/day): No Frequency of alcohol use: None Drug Abuse: None Family History: None, Hyperlipidemia Patient has suicidal ideation: No Patient has homicidal ideation: No - Past Medical History Cardiac Medical History: Reports: Hx Hypertension Pulmonary Medical History: Reports: Hx COPD Renal/ Medical History: Denies: Hx Peritoneal Dialysis Musculoskeletal Medical History: Denies Hx Arthritis, Reports Hx Gout Psychiatric Medical History: Reports: Hx Anxiety, Hx Depression Past Surgical History: Reports: Hx Orthopedic Surgery - Rt knee - Immunizations Hx Diphtheria, Pertussis, Tetanus Vaccination: Yes Review of Systems - Review of Systems Constitutional: denies: Chills, Fever EENT: See HPI Cardiovascular: See HPI Respiratory: See HPI Gastrointestinal: No symptoms reported Genitourinary: No symptoms reported Male Genitourinary: No symptoms reported Musculoskeletal: No symptoms reported Skin: No symptoms reported Hematologic/Lymphatic: No symptoms reported Neurological/Psychological: No symptoms reported Physical Exam - Vital signs Vitals: Temp Pulse Resp BP Pulse Ox 103 F H 103 H 28 H 186/124 H 88 L 07/10/18 03:13 07/10/18 03:13 07/10/18 03:13 07/10/18 03:13 07/10/18 03:13 - Notes Notes: GENERAL: Alert, interacts well. No acute distress. Patient is tachypneic with shallow respirations at this time. HEAD: Normocephalic, atraumatic. EYES: Pupils equal, round, and reactive to light. Extraocular movements intact. ENT: Oral mucosa moist, tongue midline. NECK: Full range of motion. Supple. Trachea midline. LUNGS: Expiratory wheeze heard bilaterally apices, very diminished bilateral bases., no rales, or rhonchi. Tachypneic HEART: Tachycardic rate and rhythm. No murmur ABDOMEN: Morbidly obese soft, non-tender. Non-distended. Bowel sounds present in all 4 quadrants. EXTREMITIES: Moves all 4 extremities spontaneously. non-pitting edema noted bilateral ankles, normal radial and dorsalis pedis pulses bilaterally. No cyanosis. 5/5 strength all 4 extremities. BACK: no cervical, thoracic, lumbar midline tenderness. No saddle anesthesia, normal distal neurovascular exam. NEUROLOGICAL: Alert and oriented x3. Normal speech. cranial nerves II through XII grossly intact. PSYCH: Normal affect, normal mood. SKIN: Warm, dry, normal turgor. No rashes or lesions noted. Course - Re-evaluation Re-evalutation: 07/10/18 05:59 After breathing treatments in the emergency room patient's lung sounds are now clear and equal in all sharma. Patient states he feels "a whole lot better." Patient states he no longer has any chest tightness. States that he wishes to be discharged. Discussed increase in troponin with patient at bedside troponin today's visit is 0.071. In looking back at patient's past visits his troponins has been anywhere troponin 0 0.044-0.087. In looking back at patient reports he had a negative stress test on 09/27/2016. 12-lead shows no ST segment elevation at this time. Discussed this case with Dr. Schmidt who stated that the pts CP was elvira d/t his SOB, bronchospasms. States his troponins are always elevated. States there is no need for the patient to be admitted at this time. Close return precautions discussed. Discussed at length the patient needs to follow-up with [facility] or [facility] for further care and treatment. 07/10/18 06:12 Pt. stated that he has been taking his medications as precribed. Discussed at length with Pt need to treat his HTN. Pt. denies CP, dizziness, headache, lightheadedness. Pt. stated he feels "fine now." Discussed elevated reading and pt then admitted that he ran out of his HTN medication a few days ago and haw been without it. Stated he did not have enough money to get it refilled but that he knows he has multiple more refills at the pharmacy waiting for him. Treated pt with his documented dose of lisinopril and HCTZ. Again close discussion with the patient need to follow-up and get his prescription refilled. Discussion about the phone application [employer] to get prescriptions at a discounted rate 07/10/18 06:17 Nursing notes did state patient's initial temperature was 103. That was documented in error. Patient's temperature was 98.2 and his pulse rate was 103. Alisa ROGER stated she was going to change documentation in the computer. - Vital Signs Vital signs: Temp Pulse Resp BP Pulse Ox 99.4 F 103 H 26 H 186/124 H 98 07/10/18 06:04 07/10/18 03:13 07/10/18 05:00 07/10/18 03:13 07/10/18 05:00 - Laboratory Result Diagrams: 07/10/18 04:20 07/10/18 04:20 Laboratory results interpreted by me: 07/10/18 04:20 Glucose 143 H Discharge - Discharge Clinical Impression: Bronchospasm, COPD exacerbation, Elevated troponin I level Obesity Qualifiers: Obesity type: unspecified obesity type Obesity classification: unspecified obesity classification Serious obesity comorbidity presence: with serious comorbidity Qualified Code(s): E66.9 - Obesity, unspecified Hypertension Qualifiers: Hypertension type: unspecified Qualified Code(s): I10 - Essential (primary) hypertension Condition: Stable Disposition: HOME, SELF-CARE Instructions: Bronchospasm ([facility]), Chronic Obstructive Lung Disease ([facility]), High Blood Pressure ([facility]) Additional Instructions: As we discussed you have been seen and treated in the emergency department for your COPD flareup. You need to follow-up with your primary care provider and inevitably a director of regional sales. Phone numbers for [facility] in [facility] will be provided in this paperwork. You need to follow-up with 1 of them. Please return to the emergency room for any other concerning symptoms. You need to take your HTN medications as prescribed. Forms: Elevated Blood Pressure Referrals: [facility] [Provider Group] - Follow up as needed [facility] [Provider Group] - Follow up as needed
[2018-07-10 06:19] VITALS: BP 200/140
[2018-07-10] MEDS ORDERED: LISINOPRIL 10 MG TABLET PO ONE (06:19)
[2018-07-10] MEDS ORDERED: HYDROCHLOROTHIAZIDE 12.5 MG TABLET PO ONE (06:19)
--- NOTE | 2018-07-10 12:01 | EKG REPORT ---
SEVERITY:- ABNORMAL ECG - SINUS RHYTHM PROBABLE LEFT ATRIAL ABNORMALITY PROBABLE LEFT VENTRICULAR HYPERTROPHY BORDERLINE PROLONGED QT INTERVAL : Confirmed by: Mandy Stauffer 10-Jul-2018 12:00:14
== END 2018-07-10 06:43 | disposition home or self-care (01) ==
LOC: ER 03:10
DX: J44.1 Chronic obstructive pulmonary disease with (acute) exacerbation (principal); I10 Essential (primary) hypertension; T46.4X6A Underdosing of angiotensin-converting-enzyme inhibitors, initial encounter; Z91.120 Patient's intentional underdosing of medication regimen due to financial hardship; Z91.14 Patient's other noncompliance with medication regimen; R74.8 Abnormal levels of other serum enzymes; J98.01 Acute bronchospasm; R06.02 Shortness of breath; E66.9 Obesity, unspecified; R07.89 Other chest pain; R05 Cough; R00.0 Tachycardia, unspecified; R60.0 Localized edema; G47.30 Sleep apnea, unspecified; Z91.19 Patient's noncompliance with other medical treatment and regimen; Z79.899 Other long term (current) drug therapy; Z87.891 Personal history of nicotine dependence
CPT/HCPCS: 93005; 94640; 99285; 96374; 36415; 85025; 80053; 84484; 71045; 93010; J2930; J7620

== ENCOUNTER 2018-08-24 13:41 | Emergency (ER) | payer SELFPAY ==
[2018-08-24 13:47] VITALS: BP 152/87
[2018-08-24] MEDS ORDERED: OXYCODONE-ACETAMINOPHEN 5-325 MG TABLET PO ONE (14:44)
--- NOTE | 2018-08-24 14:50 | ER Document Report ---
HPI - HPI Time Seen by Provider: 08/24/18 14:38 Pain Level: 5 Notes: Patient is a 43-year-old male who presents emergency department with chief complaint of right foot pain. Patient reports that he has a history of gout this is usually the same presentation. Patient reports pain started yesterday. He states he had 2 tablets left of his indomethacin, he took both of them and is now here in the emergency department. Patient reports indomethacin usually works well for him. He denies any drug use or alcohol use. Patient reports he is aware of the gout diet and avoids foods that trigger this. Patient denies any recent injury to the area. Past Medical History - General Information source: Patient - Social History Smoking Status: Former Smoker Frequency of alcohol use: None Drug Abuse: None Family History: None, Hyperlipidemia - Past Medical History Cardiac Medical History: Reports: Hx Hypertension Pulmonary Medical History: Reports: Hx COPD Renal/ Medical History: Denies: Hx Peritoneal Dialysis Musculoskeletal Medical History: Denies Hx Arthritis, Reports Hx Gout Psychiatric Medical History: Reports: Hx Anxiety, Hx Depression Past Surgical History: Reports: Hx Orthopedic Surgery - Rt knee - Immunizations Hx Diphtheria, Pertussis, Tetanus Vaccination: Yes Vertical Provider Document - CONSTITUTIONAL Notes: PHYSICAL EXAMINATION: GENERAL: Well-appearing, well-nourished and in no acute distress. HEAD: Atraumatic, normocephalic. EYES: Pupils equal round extraocular movements intact, conjunctiva are normal. ENT: Nares patent NECK: Normal range of motion LUNGS: No respiratory distress Musculoskeletal: Normal range of motion, swelling and erythema noted to right foot from great toe up into ankle. NEUROLOGICAL: Normal speech, normal gait. PSYCH: Normal mood, normal affect. SKIN: Warm, Dry, normal turgor, no rashes or lesions noted. - INFECTION CONTROL TRAVEL OUTSIDE OF THE [place] IN LAST 30 DAYS: No Course - Re-evaluation Re-evalutation: History as well as examination are consistent with acute gout flareup. Patient will be placed on appropriate medications and discharged home in stable condition. Patient educated regarding safe foods to eat while trying to avoid gout attacks. - Vital Signs Vital signs: Temp Pulse Resp BP Pulse Ox 98.7 F 101 H 18 152/87 H 95 08/24/18 13:45 08/24/18 13:45 08/24/18 13:45 08/24/18 13:45 08/24/18 13:45 Discharge - Discharge Clinical Impression: Gout Qualifiers: Gout site: unspecified site Gout etiology: unspecified cause Chronicity: acute Qualified Code(s): M10.9 - Gout, unspecified Condition: Stable Disposition: HOME, SELF-CARE Additional Instructions: Gout You have been diagnosed as having gout. Gout is a problem caused by an excess of uric acid, a natural chemical found in the body. The cause of this disease is unknown. Gout arthritis occurs when crystals of uric acid form in the joints. The big toe is the most common joint involved, but any joint can become affected. Persons with gout may also form uric acid kidney stones, resulting in flank pain and blood in the urine. Nodules of uric acid may form under the skin. The first step of treatment is to decrease the inflammation in the joint with antiinflammatory medication. Medication to lower the uric acid level in the blood may then be prescribed. This medication should be taken regularly, as any sudden change in dosage may provoke an attack of gout. Some foods, such as red meat, can provoke an attack in some gout sufferers. Call the doctor if new symptoms arise, or if you do not improve. Gout Diet Changing your diet can decrease the uric acid in your blood. High levels of uric acid cause gouty arthritis and uric acid kidney stones. If you have gout, you should avoid meats that are high in purine. Meat products to avoid include liver, kidneys, and brains. In general, poultry is better than red meats. Seafoods to avoid include anchovies, sardines, luis, mackerel, and scallops. In addition to limiting purine-rich foods, people with gout should limit protein intake to 10-15% of total calories. Carbohydrate intake should be around 50% of total daily calories. Limit fat intake to 30% of total daily calories. Cholesterol intake should be less than 300 mg/day. Maintain or achieve a healthy body weight. Weight loss should be gradual. Rapid weight loss can actually increase uric acid levels temporarily. Alcohol, especially beer, should be avoided. Get plenty of fluids. This dilutes urinary uric acid, and helps prevent uric acid kidney stones. Drink eight to twelve cups of water daily. Please take all medications as prescribed. Follow the gout diet as outlined above. Follow-up with your primary care provider if not improving over the next 5-7 days. Prescriptions: Indomethacin 50 mg PO TID #30 capsule Referrals: KEYSHAWN MONROY MD [Primary Care Provider] - Follow up as needed
== END 2018-08-24 14:55 | disposition home or self-care (01) ==
LOC: ER 13:41
DX: M10.9 Gout, unspecified (principal); M79.671 Pain in right foot; I10 Essential (primary) hypertension; J44.9 Chronic obstructive pulmonary disease, unspecified
CPT/HCPCS: 99283

== ENCOUNTER 2018-12-23 19:06 | Inpatient (IN) | payer OTHER ==
[2018-12-23] MEDS ORDERED: ASPIRIN 81 MG TABLET, CHEWABLE PO ONE (19:53)
[2018-12-23] MEDS ORDERED: NITROGLYCERIN 5 MG (0.2 MG/HR) PATCH.TD24 TD ONE (19:53)
--- NOTE | 2018-12-23 19:57 | ER Document Report ---
ED General - General Chief Complaint: Breathing Difficulty Stated Complaint: TROUBLE BREATHING Time Seen by Provider: 12/23/18 19:39 Primary Care Provider: KEYSHAWN MONROY MD [NO LOCAL MD] - Follow up as needed Notes: Patient is a 43-year-old male with a past medical history of essential hypertension, obstructive sleep apnea, COPD, morbid obesity, presents complaining of shortness of breath and chest tightness. Patient states his symptoms started earlier while he was out eating. States that he first developed a tightness in his chest that was a mild to moderate, constant, cramping discomfort in his left chest that did not radiate. States that the discomfort was worsened when he got up and exerted himself. Nothing improves his symptoms. He then suddenly noticed shortness of breath that is been ongoing since that time. Denies a history of similar symptoms in the past. Patient states that they wanted to get a stress test on him in the past but that he declined the test. He also notes that he is not using CPAP at night and has not been on any of his medicines in quite some time. Follows with [facility]. Notes ongoing chest tightness at the time of my evaluation. TRAVEL OUTSIDE OF THE [place] IN LAST 30 DAYS: No - Related Data Allergies/Adverse Reactions: No Known Allergies Allergy (Verified 04/25/18 10:04) Past Medical History - General Information source: Patient - Social History Smoking Status: Former Smoker Frequency of alcohol use: None Drug Abuse: None Family History: Reviewed & Not Pertinent, Hyperlipidemia - Past Medical History Cardiac Medical History: Reports: Hx Hypertension Pulmonary Medical History: Reports: Hx COPD Renal/ Medical History: Denies: Hx Peritoneal Dialysis Musculoskeletal Medical History: Denies Hx Arthritis, Reports Hx Gout Psychiatric Medical History: Reports: Hx Anxiety, Hx Depression Past Surgical History: Reports: Hx Orthopedic Surgery - Rt knee - Immunizations Hx Diphtheria, Pertussis, Tetanus Vaccination: Yes Review of Systems - Review of Systems Notes: Constitutional: Negative for fever. HENT: Negative for sore throat. Eyes: Negative for visual changes. Cardiovascular: Positive for chest pain. Respiratory: Positive for shortness of breath. Gastrointestinal: Negative for abdominal pain, vomiting or diarrhea. Genitourinary: Negative for dysuria. Musculoskeletal: Negative for back pain. Skin: Negative for rash. Neurological: Negative for headaches, weakness or numbness. 10 point ROS negative except as marked above and in HPI. Physical Exam - Vital signs Vitals: Temp Pulse Resp BP Pulse Ox 100.0 F 110 H 24 H 179/107 H 95 12/23/18 19:09 12/23/18 19:09 12/23/18 19:09 12/23/18 19:09 12/23/18 19:09 Interpretation: Hypertensive, Tachycardic Notes: PHYSICAL EXAMINATION: GENERAL: Appears moderately uncomfortable but in no acute distress HEAD: Atraumatic, normocephalic. EYES: Pupils equal round and reactive to light, extraocular movements intact, sclera anicteric, conjunctiva are normal. ENT: nares patent, oropharynx clear without exudates. Moderately dry mucous membranes. NECK: Normal range of motion, supple without lymphadenopathy LUNGS: Breath sounds clear to auscultation bilaterally and equal. No wheezes rales or rhonchi. HEART: Regular tachycardia without murmurs ABDOMEN: Soft, morbidly obese abdomen nontender, normoactive bowel sounds. No guarding, no rebound. No masses appreciated. EXTREMITIES: Normal range of motion, trace edema in the bilateral lower 70s that is equal and symmetric. No cyanosis. NEUROLOGICAL: No focal neurological deficits. Moves all extremities spontaneously and on command. PSYCH: Normal mood, normal affect. SKIN: Warm, Dry, normal turgor, no rashes or lesions noted. Course - Re-evaluation Re-evalutation: 12/23/18 19:56 Presentation patient complaining of shortness of breath and chest pain. Initial EKG is without ischemic changes. Primary concerns at this time include ACS, possible pulmonary embolus, less likely aortic dissection given symmetric pulses and symmetric blood pressures. The patient has a multitude of risk factors for cardiac disease including obesity, hypertension, noncompliance with regimen and also has risk factors for CHF including his hypertension as well as nontreated sleep apnea. I do not believe that this is a COPD exacerbation as there is no evidence of this on exam or by history. Will obtain labs, chest x-ray, d-dimer, continue on monitoring and evaluation advisor, provide aspirin, nitroglycerin and reassess. 12/23/18 23:41 CTA of the chest was obtained due to elevated d-dimer and ongoing tachycardia. This did reveal findings consistent with an acute left-sided pulmonary embolus with probable left-sided lower lobe infarction. Patient has been started on enoxaparin. Continues to maintain his saturations in the mid 90s on room air although remains tachycardic. IV fluids have been administered. I will discuss with the hospitalist for admission. - Vital Signs Vital signs: Temp Pulse Resp BP Pulse Ox 99.6 F 110 H 26 H 149/85 H 95 12/23/18 21:20 12/23/18 19:09 12/23/18 23:20 12/23/18 23:20 12/23/18 23:20 - Laboratory Result Diagrams: 12/23/18 19:50 12/23/18 19:50 Laboratory results interpreted by me: 12/23/18 12/23/18 12/23/18 19:50 19:50 19:50 WBC 10.8 H RDW 15.1 H D-Dimer NT-Pro-B Natriuret Pep 130 H Total Protein 8.4 H 12/23/18 19:50 WBC RDW D-Dimer 1.06 H NT-Pro-B Natriuret Pep Total Protein - EKG Interpretation by Me Additional EKG results interpreted by me: 12/23/18 19:54 Sinus tachycardia, rate 109. No ST elevations or depressions. LVH is present. QTC is 475. Discharge - Discharge Clinical Impression: Pulmonary embolus with infarction, Tachycardia, Shortness of breath Condition: Fair Disposition: ADMITTED INPATIENT Admitting Provider: Jovita (Hospitalist) Unit Admitted: IMCU Referrals: KEYSHAWN MONROY MD [NO LOCAL MD] - Follow up as needed
[2018-12-23 20:19] LABS: ABSOLUTE BASOPHILS # (AUTO) 0.1 10^3/uL (0.0-0.2); ABSOLUTE EOSINOPHILS # (AUTO) 0.3 10^3/uL (0.0-0.6); ABSOLUTE LYMPHOCYTES (AUTO) 2.7 10^3/uL (0.5-4.7); ABSOLUTE NEUT (AUTO) 6.8 10^3/uL (1.7-8.2); BASOPHILS % (AUTO) 0.7 % (0-2); EOSINOPHILS % (AUTO) 2.5 % (0-6); HEMATOCRIT 41.6 % (37.9-51.0); HEMOGLOBIN 14.2 g/dL (13.5-17.0); LYMPHOCYTES % (AUTO) 24.9 % (13-45); MEAN CORPUSCULAR HEMOGLOBIN 29.1 pg (27.0-33.4); MEAN CORPUSCULAR HGB CONC 34.1 g/dL (32.0-36.0); MEAN CORPUSCULAR VOLUME 85 fl (80-97); MONOCYTES % (AUTO) 8.8 % (3-13); PLATELET COUNT 247 10^3/uL (150-450); RED BLOOD COUNT 4.89 10^6/uL (4.35-5.55); RED CELL DISTRIBUTION WIDTH 15.1 % (11.5-14.0); SEGMENTED NEUTROPHILS % (AUTO) 63.1 % (42-78); TOTAL CELLS COUNTED % (AUTO) 100 %; WHITE BLOOD COUNT 10.8 10^3/uL (4.0-10.5)
--- NOTE | 2018-12-23 20:32 | RADIOLOGY REPORT (SQ) ---
EXAM DESCRIPTION: XR CHEST 1 VIEW COMPLETED DATE/TME: 12/23/2018 19:39 CLINICAL HISTORY: 43 years, Male, sob COMPARISON: 07/10/2018. NUMBER OF VIEWS: 1 TECHNIQUE: Single frontal view of the chest was obtained in AP portable upright technique. LIMITATIONS: None. FINDINGS: Prominent appearance of the cardiac mediastinal silhouette may be exaggerated by low lung volumes and portable technique with top normal heart size. Patchy opacification of the LEFT lower lobe raises the possibility of subsegmental atelectasis versus developing consolidation/pneumonia. No gross pneumothoraces or large pleural effusion. Degenerative change of the bilateral shoulders with subchondral cyst and osteophyte formation. Degenerative change of the thoracic spine. IMPRESSION: LEFT basilar opacity raising the possibility of subsegmental atelectasis versus developing consolidation/pneumonia. Please correlate with patient clinical findings and follow-up for resolution. copyright 2010 [email or web address]- All Rights Reserved
[2018-12-23 20:52] LABS: ALANINE AMINOTRANSFERASE 42 U/L (21-72); ALBUMIN 4.2 g/dL (3.5-5.0); ALKALINE PHOSPHATASE 107 U/L (38-126); ANION GAP 12 (5-19); ASPARTATE AMINO TRANSFERASE 33 U/L (17-59); BILIRUBIN,DIRECT 0.3 mg/dL (0.0-0.4); BILIRUBIN,TOTAL 0.8 mg/dL (0.2-1.3); BLOOD UREA NITROGEN 12 mg/dL (7-20); CALCIUM 9.3 mg/dL (8.4-10.2); CARBON DIOXIDE 28 mmol/L (22-30); CHLORIDE 100 mmol/L (98-107); GLUCOSE 110 mg/dL (75-110); POTASSIUM 3.7 mmol/L (3.6-5.0); SODIUM 140.4 mmol/L (137-145); TOTAL PROTEIN 8.4 g/dL (6.3-8.2)
[2018-12-23 21:10] LABS: TROPONIN I 0.063 ng/mL
[2018-12-23] MEDS ORDERED: LORAZEPAM INJ 2 MG/1 ML VIAL IV ONE (21:52)
[2018-12-23] MEDS ORDERED: MORPHINE SULFATE 10 MG/ML INJ IV PRN (22:58)
--- NOTE | 2018-12-23 23:17 | RADIOLOGY REPORT (SQ) ---
EXAM DESCRIPTION: CT CHEST ANGIOGRAPHY WITHOUT THEN WITH IV CONTRAST COMPLETED DATE/TME: 12/23/2018 20:54 CLINICAL HISTORY: 43 years, Male, eval pe; shortness of breath COMPARISON: Multiple priors, most recent from 05/31/2018 TECHNIQUE: CT chest angiography was performed following intravenous administration of contrast. Multiplanar reformatted images were provided. 3-D reformatted images were performed on an independent workstation (to include axial, sagittal, and coronal MIPS). Images stored on PACS. All CT scanners at this facility use dose modulation, iterative reconstruction, and/or weight based dosing when appropriate to reduce radiation dose to as low as reasonably achievable (ALARA). [facility]: Dose Right [facility]: CareDose [facility]: Dose Right [facility]: Teradose 4D [facility]: [employer] LIMITATIONS: None. FINDINGS: Central airways are patent. Bibasilar opacity is noted, mostly bandlike in configuration though there is more focal consolidative opacity about the periphery of the left lower lobe. Lungs are otherwise clear. Mediastinal windows show no suspicious hilar or mediastinal lymph node enlargement. There is a tiny left pleural effusion. Heart and great vessels show no suspicious abnormality. The study is adequate for the evaluation of pulmonary emboli. A focal filling defect is identified about the left lower lobe posterior basilar segmental pulmonary arterial vessel. No additional filling defects are identified. The RV/LV ratio is less than one. No septal bowing is identified. Limited evaluation of the upper abdomen reveals no suspicious findings. Bone windows show no destructive osseous lesions. IMPRESSION: Findings compatible acute pulmonary embolism within the left lower lobe posterior basilar segmental pulmonary artery. No evidence of right heart strain. Small left pleural effusion. Superimposed bibasilar consolidative opacity is mostly bandlike, likely indicating atelectasis/scar. However, there may be a component of pulmonary infarction about the left lower lobe. TECHNICAL DOCUMENTATION: Quality ID # [id number]: Final reports with documentation of one or more dose reduction techniques (e.g., Automated exposure control, adjustment of the mA and/or kV according to patient size, use of iterative reconstruction technique) copyright 2010 [employer]- All Rights Reserved
[2018-12-23] MEDS ORDERED: ENOXAPARIN SODIUM INJ 120 MG/0.8 ML DISP.SYRIN SUBCUT SCH (23:30)
[2018-12-23] MEDS ORDERED: NORMAL SALINE 1000 ML 1,000 ML IV ONE (23:42)
[2018-12-23] MEDS ORDERED: ENOXAPARIN SODIUM INJ 120 MG/0.8 ML DISP.SYRIN SUBCUT ONE (23:59)
[2018-12-24] MEDS ORDERED: RINGERS SOLUTION,LACTATED 1,000 ML IV PRN (01:03)
[2018-12-24] MEDS ORDERED: TEMAZEPAM 15 MG CAPSULE PO PRN (01:03)
[2018-12-24] MEDS ORDERED: MAGNESIUM HYDROXIDE SUSP 30 ML UDCUP PO PRN (01:03)
[2018-12-24] MEDS ORDERED: ONDANSETRON HCL INJ/PF 4 MG/2 ML SDV IV PRN (01:03)
[2018-12-24] MEDS ORDERED: MAG HYDROX/AL HYDROX/SIMETH SUSP 30 ML UDCUP PO PRN (01:03)
[2018-12-24] MEDS ORDERED: MORPHINE SULFATE 10 MG/ML INJ IV PRN ×4 (01:12→01:22)
[2018-12-24 02:13] LABS: FREE T3 4.3 pg/mL (2.77-5.27)
[2018-12-24 02:39] LABS: FREE T4 (FREE THYROXINE) 1.15 ng/dL (0.78-2.19)
[2018-12-24] MEDS: ACETAMINOPHEN 325 MG TABLET PO PRN ×3 (02:58→15:54)
[2018-12-24 03:10] LABS: THYROID STIMULATING HORMONE 0.68 uIU/mL (0.47-4.68)
[2018-12-24 03:27] LABS: APPEARANCE,URINE CLEAR; BILIRUBIN,URINE NEGATIVE (NEGATIVE); COLOR,URINE YELLOW; GLUCOSE, URINE NEGATIVE (NEGATIVE); KETONES,URINE NEGATIVE (NEGATIVE); LEUKOCYTE ESTERASE,URINE NEGATIVE (NEGATIVE); NITRITE,URINE NEGATIVE (NEGATIVE); PROTEIN,URINE 30 mg/dL (NEGATIVE); URINE SPECIFIC GRAVITY 1.034; UROBILINOGEN,URINE NEGATIVE mg/dL (<2.0)
--- NOTE | 2018-12-24 04:31 | PDOC H&P ---
History of Present Illness Admission Date/PCP: 12/24/2018 Patrick Adams MD Patient complains of: Chest pain History of Present Illness: NORBERTO CRISOSTOMO is a 43 year old male who presented to the emergency room with acute chest pain. He admits that while he was having dinner this evening he suddenly developed a sharp, constant, moderately severe stabbing pain in the left side of his anterior lateral chest without radiation. The pain was accompanied by the sudden onset of dyspnea both at rest and increased by exertion. Patient denies prior similar episodes and has not identified any aggravating or ameliorating factors for his acute onset dyspnea. In the emergency room the patient was found to have an acute left lower lobe pulmonary embolus with infarct by CTA evaluation. With these findings the patient was admitted to hospital for further evaluation and treatment. Past Medical History Cardiac Medical History: Reports: Hyperlipidema, Hypertension Denies: Atrial Fibrillation, Coronary Artery Disease, DVT, Myocardial Infarction, Pulmonary Embolism Pulmonary Medical History: Reports: Chronic Obstructive Pulmonary Disease (COPD), Sleep Apnea Denies: Asthma EENT Medical History: Denies: Cataracts, Ears - Hearing aids Neurological Medical History: Denies: Hemorrhagic CVA, Ischemic CVA, Seizures Endocrine Medical History: Reports: Diabetes Mellitus Type 2, Obesity Denies: Diabetes Mellitus Type 1, Hyperthyroidism, Hypothyroidism Renal/ Medical History: Denies: Chronic Kidney Disease, Nephrolithiasis Malignancy Medical History: Reports: None GI Medical History: Denies: Cirrhosis, Hepatitis Musculoskeltal Medical History: Reports: Gout Denies: Arthritis Skin Medical History: Denies: Eczema, Psoriasis Psychiatric Medical History: Reports: Depression, General Anxiety Disorder, Tobacco Dependency Denies: Alcohol Dependency, Substance Abuse Traumatic Medical History: Reports: None Hematology: Denies: Anemia, Bleeding Tendencies Infectious Medical History: Reports: None Past Surgical History Past Surgical History: Reports: Orthopedic Surgery - Rt knee Social History Information Source: Patient Lives with: Alone Smoking Status: Former Smoker Frequency of Alcohol Use: None Hx Recreational Drug Use: No Drugs: None Hx Prescription Drug Abuse: No - Advance Directive Resuscitation Status: Full Code Surrogate healthcare decision maker:: Jeanne Sandra Family History Family History: DM, Hyperlipidemia, Hypertension, Thyroid Disfunction. denies: CAD Parental Family History Reviewed: Yes Children Family History Reviewed: No Sibling(s) Family History Reviewed.: Yes Medication/Allergy Home Medications: Albuterol Sulfate [Proair HFA] 1 - 2 puff IH Q4 PRN #1 inhaler 05/31/18 Diltiazem HCl [Cardizem Cd 120 mg Capsule] 1 cap.sr PO DAILY #30 cap.sr 05/31/18 Doxycycline Hyclate 100 mg PO BID #14 tablet 05/31/18 Lisinopril/Hydrochlorothiazide [Lisinopril-Hctz 20-12.5 mg Tab] 1 each PO DAILY #30 tablet 05/31/18 Magnesium Oxide [Mag-Ox 400 mg Tablet] 400 mg PO BID #15 tablet 05/31/18 Prednisone [Deltasone 10 mg Tablet] 10 mg PO ASDIR PRN #21 tablet 05/31/18 Indomethacin 50 mg PO TID #30 capsule 08/24/18 Allergies/Adverse Reactions: No Known Allergies Allergy (Verified 04/25/18 10:04) Review of Systems Constitutional: ABSENT: chills, fever(s) Eyes: ABSENT: visual disturbances, other - Ocular pain Ears: ABSENT: hearing changes, other - Ear pain Nose, Mouth, and Throat: ABSENT: mouth pain, sore throat Cardiovascular: PRESENT: as per HPI, chest pain, dyspnea on exertion. ABSENT: edema, orthropnea, palpitations Respiratory: PRESENT: dyspnea. ABSENT: cough, hemoptysis Gastrointestinal: ABSENT: abdominal pain, constipation, diarrhea, nausea, vomiting Genitourinary: ABSENT: dysuria, hematuria Musculoskeletal: ABSENT: back pain, joint swelling, muscle weakness Integumentary: ABSENT: pruritus, rash Neurological: ABSENT: confusion, convulsions, focal weakness, memory loss, syncope Psychiatric: ABSENT: anxiety, depression Endocrine: ABSENT: cold intolerance, heat intolerance Hematologic/Lymphatic: ABSENT: easy bleeding, easy bruising Physical Exam Vital Signs: Temp Pulse Resp BP Pulse Ox 99.6 F 110 H 26 H 149/85 H 95 12/23/18 21:20 12/23/18 19:09 12/23/18 23:20 12/23/18 23:20 12/23/18 23:20 Intake & Output 12/22/18 12/23/18 12/24/18 23:59 23:59 23:59 Weight 114.759 kg General appearance: PRESENT: no acute distress, cooperative, morbidly obese Head exam: PRESENT: atraumatic, normocephalic Eye exam: ABSENT: conjunctival injection, scleral icterus Ear exam: PRESENT: normal external ear exam. ABSENT: bleeding, drainage Mouth exam: PRESENT: dry mucosa, neck supple Neck exam: ABSENT: JVD, thyromegaly, tracheal deviation Respiratory exam: PRESENT: clear to auscultation nitin, symmetrical, tachypnea, unlabored. ABSENT: accessory muscle use, retraction Cardiovascular exam: PRESENT: RRR, tachycardia. ABSENT: clicks, gallop, rubs Pulses: PRESENT: normal radial pulses, normal dorsalis pedis pul Vascular exam: PRESENT: normal capillary refill. ABSENT: pallor GI/Abdominal exam: PRESENT: normal bowel sounds, soft Rectal exam: PRESENT: deferred Extremities exam: PRESENT: pedal edema - Trace to 1+ bilaterally, +1 edema - Pretibial pitting edema bilaterally. ABSENT: joint swelling Musculoskeletal exam: PRESENT: full ROM, normal inspection Neurological exam: PRESENT: alert, oriented to person, oriented to place, oriented to time, oriented to situation, CN II-XII grossly intact. ABSENT: motor sensory deficit Psychiatric exam: PRESENT: appropriate affect, normal mood Skin exam: PRESENT: dry, intact, warm. ABSENT: jaundice, rash, urticaria Results Laboratory Results: 12/23/18 19:50 12/23/18 19:50 12/23/18 12/23/18 19:50 19:50 WBC 10.8 H RBC 4.89 Hgb 14.2 Hct 41.6 MCV 85 MCH 29.1 MCHC 34.1 RDW 15.1 H Plt Count 247 Seg Neutrophils % 63.1 Lymphocytes % 24.9 Monocytes % 8.8 Eosinophils % 2.5 Basophils % 0.7 Absolute Neutrophils 6.8 Absolute Lymphocytes 2.7 Absolute Monocytes 1.0 Absolute Eosinophils 0.3 Absolute Basophils 0.1 Sodium 140.4 Potassium 3.7 Chloride 100 Carbon Dioxide 28 Anion Gap 12 BUN 12 Creatinine 1.04 Est GFR ( Amer) > 60 Est GFR (Non-Af Amer) > 60 Glucose 110 Calcium 9.3 Total Bilirubin 0.8 AST 33 ALT 42 Alkaline Phosphatase 107 Total Protein 8.4 H Albumin 4.2 12/23/18 12/23/18 19:50 23:20 Troponin I 0.063 0.065 NT-Pro-B Natriuret Pep 130 H Impressions: Chest X-Ray 12/23/18 19:39 IMPRESSION: LEFT basilar opacity raising the possibility of subsegmental atelectasis versus developing consolidation/pneumonia. Please correlate with patient clinical findings and follow-up for resolution. copyright 2010 [employer]- All Rights Reserved Chest/Abdomen CTA 12/23/18 20:54 IMPRESSION: Findings compatible acute pulmonary embolism within the left lower lobe posterior basilar segmental pulmonary artery. No evidence of right heart strain. Small left pleural effusion. Superimposed bibasilar consolidative opacity is mostly bandlike, likely indicating atelectasis/scar. However, there may be a component of pulmonary infarction about the left lower lobe. TECHNICAL DOCUMENTATION: Quality ID # [id number]: Final reports with documentation of one or more dose reduction techniques (e.g., Automated exposure control, adjustment of the mA and/or kV according to patient size, use of iterative reconstruction technique) copyright 2010 [employer]- All Rights Reserved Assessment and Plan - Diagnosis (1) Acute respiratory failure with hypoxia Is this a current diagnosis for this admission?: Yes Plan: Patient be treated with supplemental oxygen as needed to maintain an adequate O2 saturation. His O2 sat will be monitored throughout his hospital course. (2) Pulmonary embolus with infarction Is this a current diagnosis for this admission?: Yes Plan: Patient is started on immediate treatment with Lovenox 1 mg/kg every 12 hours. He will be converted to a oral therapy as soon as possible utilizing Eliquis or other similar medications to be determined by his insurance coverage. Pulmonology consultation will be obtained. (3) Obstructive sleep apnea of adult Is this a current diagnosis for this admission?: Yes Plan: Patient will be treated with his CPAP at at bedtime while he is in the hospital. He does not use CPAP at home due to noncompliance. (4) Morbid obesity Is this a current diagnosis for this admission?: Yes Plan: Patient will be given dietary consultation during his hospital course. - Time Time Spent with patient: 15-24 minutes Medications reviewed and adjusted accordingly: No - No current meds Anticipated discharge: Home - Inpatient Certification Based on my medical assessment, after consideration of the patient's comorbidities, presenting symptoms, or acuity I expect that the services needed warrant INPATIENT care.: Yes I certify that my determination is in accordance with my understanding of Medicare's requirements for reasonable and necessary INPATIENT services [42 CFR 412.3e].: Yes Medical Necessity: Need Close Monitoring Due to Risk of Patient Decompensation, Need For Continuous Telemetry Monitoring, Need for Pain Control, Risk of Complication if Not Cared For in Hospital
[2018-12-24 07:28] LABS: CHOLESTEROL 137.93 mg/dL (0-200); TRIGLYCERIDES 168 mg/dL (<150)
[2018-12-24 07:39] LABS: DIRECT LDL 74 mg/dL (<100)
[2018-12-24 07:44] LABS: VLDL CHOLESTEROL 33.6 mg/dL (10-31)
[2018-12-24] MEDS ORDERED: ENOXAPARIN SODIUM INJ 120 MG/0.8 ML DISP.SYRIN SUBCUT SCH (10:00)
[2018-12-24] MEDS: METOPROLOL TARTRATE 100 MG TABLET PO SCH ×2 (10:35→21:43)
[2018-12-24] MEDS: DOCUSATE SODIUM 100 MG CAPSULE PO SCH ×2 (10:35→17:02)
[2018-12-24] MEDS: FAMOTIDINE 20 MG TABLET PO SCH ×2 (10:35→21:43)
[2018-12-24] MEDS: ENOXAPARIN SODIUM INJ 120 MG/0.8 ML DISP.SYRIN SUBCUT SCH ×2 (10:36→21:44)
[2018-12-24] MEDS: FLUTICASONE/UMECLIDIN/VILANTER 100-62.5-25 MCG/DOSE IH SCH (14:37)
[2018-12-24] MEDS ORDERED: HYDROMORPHONE HCL INJ/PF 2 MG/ML AMPULE ONE (16:27)
[2018-12-24 17:24] LABS: HEMOGLOBIN 12.9 g/dL (13.5-17.0); MEAN CORPUSCULAR HEMOGLOBIN 28.5 pg (27.0-33.4); MEAN CORPUSCULAR HGB CONC 33.9 g/dL (32.0-36.0); MEAN CORPUSCULAR VOLUME 84 fl (80-97); PLATELET COUNT 223 10^3/uL (150-450); RED BLOOD COUNT 4.51 10^6/uL (4.35-5.55); RED CELL DISTRIBUTION WIDTH 15.1 % (11.5-14.0); WHITE BLOOD COUNT 8.7 10^3/uL (4.0-10.5)
[2018-12-24 17:31] LABS: INTERNATIONAL RATION (INR) 1.15; PROTHROMBIN TIME 15.3 SEC (11.4-15.4)
[2018-12-24] MEDS: ALLOPURINOL 300 MG TABLET PO SCH (17:35)
[2018-12-24] MEDS: LIDOCAINE 5% (700 MG) TRANSDERMAL ADH..PATCH TP SCH (17:35)
[2018-12-24] MEDS: HYDROMORPHONE HCL INJ/PF 2 MG/ML AMPULE IV PRN (21:43)
[2018-12-24] MEDS ORDERED: WARFARIN SODIUM 5 MG TABLET PO SCH (22:00)
[2018-12-25] MEDS: HYDROMORPHONE HCL INJ/PF 2 MG/ML AMPULE IV PRN ×3 (03:09→14:56)
[2018-12-25] MEDS: LEVALBUTEROL HCL NEB 0.63 MG/3 ML AMPUL NEB PRN ×2 (03:37→09:46)
[2018-12-25 06:27] LABS: HEMOGLOBIN 12.9 g/dL (13.5-17.0); MEAN CORPUSCULAR HGB CONC 34.1 g/dL (32.0-36.0); MEAN CORPUSCULAR VOLUME 85 fl (80-97); PLATELET COUNT 196 10^3/uL (150-450); RED BLOOD COUNT 4.47 10^6/uL (4.35-5.55); RED CELL DISTRIBUTION WIDTH 14.8 % (11.5-14.0); WHITE BLOOD COUNT 10.6 10^3/uL (4.0-10.5)
[2018-12-25 06:43] LABS: INTERNATIONAL RATION (INR) 1.14; PROTHROMBIN TIME 15.2 SEC (11.4-15.4)
[2018-12-25 06:57] LABS: ANION GAP 11 (5-19); BLOOD UREA NITROGEN 15 mg/dL (7-20); CALCIUM 8.6 mg/dL (8.4-10.2); CARBON DIOXIDE 27 mmol/L (22-30); CHLORIDE 101 mmol/L (98-107); GLUCOSE 117 mg/dL (75-110); POTASSIUM 3.6 mmol/L (3.6-5.0); SODIUM 138.8 mmol/L (137-145)
[2018-12-25] MEDS ORDERED: MAGNESIUM SULFATE 4 GM/D5W 100 ML IV ONE (09:30)
[2018-12-25] MEDS: ENOXAPARIN SODIUM INJ 120 MG/0.8 ML DISP.SYRIN SUBCUT SCH ×2 (10:36→22:07)
[2018-12-25] MEDS: ALLOPURINOL 300 MG TABLET PO SCH ×2 (10:37→18:26)
[2018-12-25] MEDS: FLUTICASONE/UMECLIDIN/VILANTER 100-62.5-25 MCG/DOSE IH SCH (10:37)
[2018-12-25] MEDS: LIDOCAINE 5% (700 MG) TRANSDERMAL ADH..PATCH TP SCH (10:37)
[2018-12-25] MEDS: METOPROLOL TARTRATE 100 MG TABLET PO SCH ×2 (10:37→22:06)
[2018-12-25] MEDS: FAMOTIDINE 20 MG TABLET PO SCH ×2 (10:37→22:07)
[2018-12-25] MEDS: DOCUSATE SODIUM 100 MG CAPSULE PO SCH ×2 (10:38→17:13)
--- NOTE | 2018-12-25 11:00 | EKG REPORT ---
SEVERITY:- ABNORMAL ECG - SINUS TACHYCARDIA CONSIDER LEFT VENTRICULAR HYPERTROPHY : Confirmed by: Mandy Stauffer 25-Dec-2018 10:59:34
[2018-12-25] MEDS ORDERED: LORAZEPAM 1 MG TABLET PO PRN (11:10)
[2018-12-25 11:13] LABS: APPEARANCE,URINE CLEAR; BILIRUBIN,URINE NEGATIVE (NEGATIVE); COLOR,URINE YELLOW; GLUCOSE, URINE NEGATIVE (NEGATIVE); KETONES,URINE NEGATIVE (NEGATIVE); LEUKOCYTE ESTERASE,URINE NEGATIVE (NEGATIVE); NITRITE,URINE NEGATIVE (NEGATIVE); PROTEIN,URINE 30 mg/dL (NEGATIVE); URINE SPECIFIC GRAVITY 1.013; UROBILINOGEN,URINE NEGATIVE mg/dL (<2.0)
[2018-12-25] MEDS: HYDROCODONE/ACETAMINOPHEN 5-325 MG TABLET PO PRN ×2 (11:39→20:21)
--- NOTE | 2018-12-25 13:53 | PDOC CONSULTATION ---
Consultation Consult Date: 12/24/18 Attending physician:: LYN HAM Provider Consulted: ANGELITO OROZCO Consult reason:: Pulmonary Embolus History of Present Illness Admission Date/PCP: 12/24/18 00:48 History of Present Illness: NORBERTO CRISOSTOMO is a 43 year old male who presented to the ER with a sharp inspiratory chest pain, upon further examination a Pulmonary Embolis was found and the primary care consulted me for this. Patient is sitting at his bedside, Patient states he gets out of breath when he lays flat. Patient does have a history of COPD he worked in [email or web address] he does not have any pets and does not travel. States he uses 2 pillows at night wakes up short of breath has a history of snoring and gets up one time nightly to use the restroom no nighttime sweats reported. Patient does have a history of sleep apnea however does not have a machine in his home due to insurance. Past Medical History Cardiac Medical History: Reports: Hyperlipidema, Hypertension Denies: Atrial Fibrillation, Coronary Artery Disease, DVT, Myocardial Infarction, Pulmonary Embolism Pulmonary Medical History: Reports: Chronic Obstructive Pulmonary Disease (COPD), Sleep Apnea Denies: Asthma EENT Medical History: Denies: Cataracts, Ears - Hearing aids Neurological Medical History: Denies: Hemorrhagic CVA, Ischemic CVA, Seizures Endocrine Medical History: Reports: Diabetes Mellitus Type 2, Obesity Denies: Diabetes Mellitus Type 1, Hyperthyroidism, Hypothyroidism Renal/ Medical History: Denies: Chronic Kidney Disease, Nephrolithiasis Malignancy Medical History: Reports: None GI Medical History: Denies: Cirrhosis, Hepatitis Musculoskeltal Medical History: Reports: Gout Denies: Arthritis Skin Medical History: Denies: Eczema, Psoriasis Psychiatric Medical History: Reports: Depression, General Anxiety Disorder, Tobacco Dependency Denies: Alcohol Dependency, Substance Abuse Traumatic Medical History: Reports: None Hematology: Denies: Anemia, Bleeding Tendencies Infectious Medical History: Reports: None Past Surgical History Past Surgical History: Reports: Orthopedic Surgery - Rt knee Social History Lives with: Alone Smoking Status: Former Smoker Cigarettes Packs Per Day: 2 Number of Years Smokin Last Time Smoked: 1 year ago Passive smoke exposure as: Both Frequency of Alcohol Use: Occasional Hx Recreational Drug Use: No Drugs: None Hx Prescription Drug Abuse: No Have you had any respiratory illnesses as a child?: No Have you been exposed to any sick contacts recently?: No Have you travelled outside of [place] in the past 12 months?: No - Advance Directive Resuscitation Status: Full Code Family History Family History: DM, Hyperlipidemia, Hypertension, Thyroid Disfunction. denies: CAD Parental Family History Reviewed: Yes - diabetes, high blood preassure, stroke, cancer all in family Children Family History Reviewed: Unknown Sibling(s) Family History Reviewed.: Yes Medication/Allergy Home Medications: Allopurinol [Zyloprim 300 mg Tablet] 300 mg PO BID 12/24/18 Metformin HCl [Glucophage 500 mg Tablet] 500 mg PO BID 12/24/18 Allergies/Adverse Reactions: No Known Allergies Allergy (Verified 12/24/18 08:15) Review of Systems Constitutional: ABSENT: chills, fever(s) Eyes: ABSENT: visual disturbances Ears: ABSENT: hearing changes Nose, Mouth, and Throat: ABSENT: headache(s), mouth pain Cardiovascular: PRESENT: chest pain, dyspnea on exertion. ABSENT: edema, palpitations Respiratory: PRESENT: dyspnea. ABSENT: cough, hemoptysis Gastrointestinal: ABSENT: abdominal pain Genitourinary: ABSENT: dysuria, hematuria Musculoskeletal: ABSENT: deformity, joint swelling Integumentary: ABSENT: rash, wounds Neurological: ABSENT: abnormal speech, convulsions Psychiatric: ABSENT: anxiety, homidical ideation, suicidal ideation Endocrine: ABSENT: polydipsia Hematologic/Lymphatic: ABSENT: easy bleeding, easy bruising Allergic/Immunologic: ABSENT: seasonal rhinorrhea Physical Exam Vital Signs: Temp Pulse Resp BP Pulse Ox 99.3 F 108 H 20 140/92 H 98 12/25/18 08:01 12/25/18 08:01 12/25/18 03:39 12/25/18 08:01 12/25/18 08:01 Intake & Output 12/24/18 12/25/18 12/26/18 06:59 06:59 06:59 Intake Total 1000 1458 Output Total 1475 Balance 1000 -17 Weight 114.9 kg General appearance: PRESENT: cooperative, disheveled, morbidly obese Head exam: PRESENT: atraumatic, normocephalic Eye exam: PRESENT: conjunctiva pink, EOMI, PERRLA. ABSENT: scleral icterus Ear exam: PRESENT: normal external ear exam Mouth exam: PRESENT: moist, tongue midline Neck exam: ABSENT: carotid bruit, JVD, lymphadenopathy, thyromegaly Respiratory exam: PRESENT: crackles, rhonchi Cardiovascular exam: PRESENT: RRR. ABSENT: diastolic murmur, rubs, systolic murmur Pulses: PRESENT: normal dorsalis pedis pul Vascular exam: PRESENT: normal capillary refill GI/Abdominal exam: PRESENT: normal bowel sounds, soft. ABSENT: distended, guarding, mass, organolmegaly, rebound, tenderness Rectal exam: PRESENT: deferred Extremities exam: PRESENT: full ROM. ABSENT: calf tenderness, clubbing, pedal edema Neurological exam: PRESENT: alert, awake, oriented to person, oriented to place, oriented to time, oriented to situation, CN II-XII grossly intact. ABSENT: motor sensory deficit Psychiatric exam: PRESENT: appropriate affect, normal mood. ABSENT: homicidal ideation, suicidal ideation Focused psych exam: ABSENT: paranoid, restlessness Skin exam: PRESENT: dry, intact, warm. ABSENT: cyanosis, rash Results Laboratory Results: 12/25/18 06:09 12/25/18 06:09 12/24/18 12/24/18 12/25/18 06:22 16:46 06:09 WBC 8.7 10.6 H RBC 4.51 4.47 Hgb 12.9 L 12.9 L Hct 38.0 38.0 MCV 84 85 MCH 28.5 29.0 MCHC 33.9 34.1 RDW 15.1 H 14.8 H Plt Count 223 196 Sodium Potassium Chloride Carbon Dioxide Anion Gap BUN Creatinine Est GFR ( Amer) Est GFR (Non-Af Amer) Glucose Calcium Magnesium Prostate Specific Ag 1.090 12/25/18 06:09 WBC RBC Hgb Hct MCV MCH MCHC RDW Plt Count Sodium 138.8 Potassium 3.6 Chloride 101 Carbon Dioxide 27 Anion Gap 11 BUN 15 Creatinine 0.92 Est GFR ( Amer) > 60 Est GFR (Non-Af Amer) > 60 Glucose 117 H Calcium 8.6 Magnesium 1.0 L* Prostate Specific Ag 12/23/18 12/23/18 19:50 23:20 Troponin I 0.063 0.065 NT-Pro-B Natriuret Pep 130 H Impressions: Chest X-Ray 12/23/18 19:39 IMPRESSION: LEFT basilar opacity raising the possibility of subsegmental atelectasis versus developing consolidation/pneumonia. Please correlate with patient clinical findings and follow-up for resolution. copyright 2011 [employer]- All Rights Reserved Chest/Abdomen CTA 12/23/18 20:54 IMPRESSION: Findings compatible acute pulmonary embolism within the left lower lobe posterior basilar segmental pulmonary artery. No evidence of right heart strain. Small left pleural effusion. Superimposed bibasilar consolidative opacity is mostly bandlike, likely indicating atelectasis/scar. However, there may be a component of pulmonary infarction about the left lower lobe. TECHNICAL DOCUMENTATION: Quality ID # [id number]: Final reports with documentation of one or more dose reduction techniques (e.g., Automated exposure control, adjustment of the mA and/or kV according to patient size, use of iterative reconstruction technique) copyright 2010 [employer]- All Rights Reserved Assessment & Plan - Diagnosis (1) Acute respiratory failure with hypoxia Is this a current diagnosis for this admission?: Yes Plan: Continue supplementary oxygen (2) Obstructive sleep apnea of adult Is this a current diagnosis for this admission?: Yes Plan: We will plan for BiPAP while patients in the hospital, nocturnal psg upon discharge (3) Pulmonary embolus with infarction Is this a current diagnosis for this admission?: Yes Plan: Continue anti coagulations as ordered, we will search for etiology of pulmonary embolus as this is the patient's first time having one and there is no obvious reason at this time (4) Tobacco abuse Is this a current diagnosis for this admission?: Yes Plan: tobacco abuse counseling Inpatient Scribe Statement - . Entered by Natalya Beckham, acting as scribe for .
--- NOTE | 2018-12-25 14:49 | PDOC PROGRESS REPORT ---
Subjective Progress Note for:: 12/25/18 Subjective:: Subjective: NORBERTO CRISOSTOMO is a 43 year old male who presented to the emergency room with acute chest pain. He admits that while he was having dinner this evening he suddenly developed a sharp, constant, moderately severe stabbing pain in the left side of his anterior lateral chest without radiation. The pain was accompanied by the sudden onset of dyspnea both at rest and increased by exertion. Patient denies prior similar episodes and has not identified any aggravating or ameliorating factors for his acute onset dyspnea. In the [facility] room the patient was found to have an acute left lower lobe pulmonary embolus with infarct by CTA evaluation. With these findings the patient was admitted to hospital for further evaluation and treatment. 12/25/2018: Patient still complaining of pleuritic chest pain. Dilaudid helps but is short-lived. He did not tolerate morphine due to side effects. But overall improving. Physical examination: Patient is no acute distress Alert oriented to time place person No anxiety or depression Head: atraumatic normocephalic Pupils: are equal reactive Neck: is supple and trachea is central no lymphadenopathy No pharyngeal erythema or exudates Heart: Regular rate and rhythm Lungs: clear no distress Abdomen: nontender nondistended Neurological exam: unremarkable Musculoskeletal: No joint swelling or effusion chronic lower back pain and tenderness No suicidal or homicidal ideation Assessment and Plan (1) Acute respiratory failure with hypoxia Is this a current diagnosis for this admission?: Yes Plan: Patient be treated with supplemental oxygen as needed to maintain an adequate O2 saturation. His O2 sat will be monitored throughout his hospital course. 12/25/2018: Continue oxygen as needed and wean as tolerated (2) Pulmonary embolus with infarction Is this a current diagnosis for this admission?: Yes Plan: Patient is started on immediate treatment with Lovenox 1 mg/kg every 12 hours. He will be converted to a oral therapy as soon as possible utilizing Eliquis or other similar medications to be determined by his insurance coverage. Pulmonology consultation will be obtained. 12/25/18: Due to the lack of insurance we started the patient on Coumadin yesterday. Monitor INR daily. (3) Obstructive sleep apnea of adult Is this a current diagnosis for this admission?: Yes Plan: Patient will be treated with his CPAP at at bedtime while he is in the hospital. He does not use CPAP at home due to noncompliance. (4) Morbid obesity Is this a current diagnosis for this admission?: Yes Plan: Patient will be given dietary consultation during his hospital course. 12/25/2018: Patient was counseled about lifestyle modifications Reason For Visit: ACUTE PULMONARY EMBOLUS WITH INFARCTION Physical Exam Vital Signs: Temp Pulse Resp BP Pulse Ox 100.3 F 103 H 26 H 152/103 H 95 12/25/18 11:53 12/25/18 11:53 12/25/18 12:45 12/25/18 11:53 12/25/18 12:45 Intake & Output 12/24/18 12/25/18 12/26/18 06:59 06:59 06:59 Intake Total 1000 1458 118 Output Total 1475 1000 Balance 1000 -17 -882 Weight 253 lb 4.978 oz Results Laboratory Results: 12/25/18 06:09 12/25/18 06:09 12/24/18 12/24/18 12/25/18 06:22 16:46 06:09 WBC 8.7 10.6 H RBC 4.51 4.47 Hgb 12.9 L 12.9 L Hct 38.0 38.0 MCV 84 85 MCH 28.5 29.0 MCHC 33.9 34.1 RDW 15.1 H 14.8 H Plt Count 223 196 Sodium Potassium Chloride Carbon Dioxide Anion Gap BUN Creatinine Est GFR ( Amer) Est GFR (Non-Af Amer) Glucose Calcium Magnesium Prostate Specific Ag 1.090 Urine Color Urine Appearance Urine pH Ur Specific [place] Urine Protein Urine Glucose (UA) Urine Ketones Urine Blood Urine Nitrite Ur Leukocyte Esterase Urine WBC (Auto) Urine RBC (Auto) 12/25/18 12/25/18 06:09 10:45 WBC RBC Hgb Hct MCV MCH MCHC RDW Plt Count Sodium 138.8 Potassium 3.6 Chloride 101 Carbon Dioxide 27 Anion Gap 11 BUN 15 Creatinine 0.92 Est GFR ( Amer) > 60 Est GFR (Non-Af Amer) > 60 Glucose 117 H Calcium 8.6 Magnesium 1.0 L* Prostate Specific Ag Urine Color YELLOW Urine Appearance CLEAR Urine pH 5.0 Ur Specific [place] 1.013 Urine Protein 30 H Urine Glucose (UA) NEGATIVE Urine Ketones NEGATIVE Urine Blood NEGATIVE Urine Nitrite NEGATIVE Ur Leukocyte Esterase NEGATIVE Urine WBC (Auto) 4 Urine RBC (Auto) 0 12/23/18 12/23/18 19:50 23:20 Troponin I 0.063 0.065 NT-Pro-B Natriuret Pep 130 H Impressions: Chest X-Ray 12/23/18 19:39 IMPRESSION: LEFT basilar opacity raising the possibility of subsegmental atelectasis versus developing consolidation/pneumonia. Please correlate with patient clinical findings and follow-up for resolution. copyright 2010 [employer]- All Rights Reserved Chest/Abdomen CTA 12/23/18 20:54 IMPRESSION: Findings compatible acute pulmonary embolism within the left lower lobe posterior basilar segmental pulmonary artery. No evidence of right heart strain. Small left pleural effusion. Superimposed bibasilar consolidative opacity is mostly bandlike, likely indicating atelectasis/scar. However, there may be a component of pulmonary infarction about the left lower lobe. TECHNICAL DOCUMENTATION: Quality ID # [id number]: Final reports with documentation of one or more dose reduction techniques (e.g., Automated exposure control, adjustment of the mA and/or kV according to patient size, use of iterative reconstruction technique) copyright 2010 [employer]- All Rights Reserved Assessment and Plan - Diagnosis (1) Acute respiratory failure with hypoxia Is this a current diagnosis for this admission?: Yes (2) Obstructive sleep apnea of adult Is this a current diagnosis for this admission?: Yes (3) Pulmonary embolus with infarction Is this a current diagnosis for this admission?: Yes (4) Morbid obesity Is this a current diagnosis for this admission?: Yes
[2018-12-25 17:50] LABS: ANION GAP 15 (5-19); BLOOD UREA NITROGEN 16 mg/dL (7-20); CALCIUM 8.5 mg/dL (8.4-10.2); CARBON DIOXIDE 24 mmol/L (22-30); CHLORIDE 98 mmol/L (98-107); GLUCOSE 123 mg/dL (75-110); POTASSIUM 4.2 mmol/L (3.6-5.0); SODIUM 136.6 mmol/L (137-145)
[2018-12-25] MEDS ORDERED: LORAZEPAM INJ 2 MG/1 ML VIAL ONE (18:15)
[2018-12-25] MEDS ORDERED: LORAZEPAM INJ 2 MG/1 ML VIAL IV ONE (19:00)
[2018-12-25] MEDS: WARFARIN SODIUM 5 MG TABLET PO SCH (22:07)
[2018-12-26] MEDS: HYDROCODONE/ACETAMINOPHEN 5-325 MG TABLET PO PRN ×3 (06:39→21:40)
[2018-12-26 06:41] LABS: HEMATOCRIT 36.6 % (37.9-51.0); HEMOGLOBIN 12.6 g/dL (13.5-17.0); MEAN CORPUSCULAR HEMOGLOBIN 29.4 pg (27.0-33.4); MEAN CORPUSCULAR HGB CONC 34.4 g/dL (32.0-36.0); MEAN CORPUSCULAR VOLUME 85 fl (80-97); PLATELET COUNT 217 10^3/uL (150-450); RED BLOOD COUNT 4.28 10^6/uL (4.35-5.55); RED CELL DISTRIBUTION WIDTH 14.9 % (11.5-14.0); WHITE BLOOD COUNT 11.5 10^3/uL (4.0-10.5)
[2018-12-26 06:44] LABS: INTERNATIONAL RATION (INR) 1.25; PROTHROMBIN TIME 16.3 SEC (11.4-15.4)
[2018-12-26 07:00] LABS: ANION GAP 12 (5-19); BLOOD UREA NITROGEN 20 mg/dL (7-20); CALCIUM 8.6 mg/dL (8.4-10.2); CARBON DIOXIDE 26 mmol/L (22-30); CHLORIDE 100 mmol/L (98-107); GLUCOSE 116 mg/dL (75-110); POTASSIUM 3.5 mmol/L (3.6-5.0); SODIUM 138.2 mmol/L (137-145)
[2018-12-26] MEDS: ALLOPURINOL 300 MG TABLET PO SCH ×2 (09:15→18:06)
[2018-12-26] MEDS: METOPROLOL TARTRATE 100 MG TABLET PO SCH ×2 (09:15→21:38)
[2018-12-26] MEDS: LIDOCAINE 5% (700 MG) TRANSDERMAL ADH..PATCH TP SCH (09:16)
[2018-12-26] MEDS: DOCUSATE SODIUM 100 MG CAPSULE PO SCH ×2 (09:16→18:06)
[2018-12-26] MEDS: FAMOTIDINE 20 MG TABLET PO SCH ×2 (09:16→21:39)
[2018-12-26] MEDS: FLUTICASONE/UMECLIDIN/VILANTER 100-62.5-25 MCG/DOSE IH SCH (09:16)
[2018-12-26] MEDS: ENOXAPARIN SODIUM INJ 120 MG/0.8 ML DISP.SYRIN SUBCUT SCH ×2 (09:16→21:38)
--- NOTE | 2018-12-26 12:33 | PDOC PROGRESS REPORT ---
Subjective Progress Note for:: 12/26/18 Subjective:: Subjective: NORBERTO CRISOSTOMO is a 43 year old male who presented to the emergency room with acute chest pain. He admits that while he was having dinner this evening he suddenly developed a sharp, constant, moderately severe stabbing pain in the left side of his anterior lateral chest without radiation. The pain was accompanied by the sudden onset of dyspnea both at rest and increased by exertion. Patient denies prior similar episodes and has not identified any aggravating or ameliorating factors for his acute onset dyspnea. In the [facility] room the patient was found to have an acute left lower lobe pulmonary embolus with infarct by CTA evaluation. With these findings the patient was admitted to hospital for further evaluation and treatment. 12/25/2018: Patient still complaining of pleuritic chest pain. Dilaudid helps but is short-lived. He did not tolerate morphine due to side effects. But overall improving. 12/26/2018: Patient is much better today. He said his pain is improved. His INR is still low. Physical examination: Patient is no acute distress Alert oriented to time place person No anxiety or depression Head: atraumatic normocephalic Pupils: are equal reactive Neck: is supple and trachea is central no lymphadenopathy No pharyngeal erythema or exudates Heart: Regular rate and rhythm Lungs: clear no distress Abdomen: nontender nondistended Neurological exam: unremarkable Musculoskeletal: No joint swelling or effusion chronic lower back pain and tenderness No suicidal or homicidal ideation Assessment and Plan (1) Acute respiratory failure with hypoxia Is this a current diagnosis for this admission?: Yes Plan: Patient be treated with supplemental oxygen as needed to maintain an adequate O2 saturation. His O2 sat will be monitored throughout his hospital course. 12/25/2018: Continue oxygen as needed and wean as tolerated 12/26/2018: Patient continues on oxygen. Wean as tolerated. (2) Pulmonary embolus with infarction Is this a current diagnosis for this admission?: Yes Plan: Patient is started on immediate treatment with Lovenox 1 mg/kg every 12 hours. He will be converted to a oral therapy as soon as possible utilizing Eliquis or other similar medications to be determined by his insurance coverage. Pulmonology consultation will be obtained. 12/25/18: Due to the lack of insurance we started the patient on Coumadin yesterday. Monitor INR daily. 12/25/2018: INR is 1.25 today. Continue Coumadin and bridging Lovenox. (3) Obstructive sleep apnea of adult Is this a current diagnosis for this admission?: Yes Plan: Patient will be treated with his CPAP at at bedtime while he is in the hospital. He does not use CPAP at home due to noncompliance. (4) Morbid obesity Is this a current diagnosis for this admission?: Yes Plan: Patient will be given dietary consultation during his hospital course. 12/25/2018: Patient was counseled about lifestyle modifications Reason For Visit: ACUTE PULMONARY EMBOLUS WITH INFARCTION Physical Exam Vital Signs: Temp Pulse Resp BP Pulse Ox 99.1 F 94 23 H 139/90 H 98 12/26/18 11:34 12/26/18 11:34 12/26/18 11:34 12/26/18 11:34 12/26/18 11:34 Intake & Output 12/25/18 12/26/18 12/27/18 06:59 06:59 06:59 Intake Total 1458 440 Output Total 1475 1700 Balance -17 -1260 Results Laboratory Results: 12/26/18 06:09 12/26/18 06:09 12/25/18 12/26/18 12/26/18 16:05 06:09 06:09 WBC 11.5 H RBC 4.28 L Hgb 12.6 L Hct 36.6 L MCV 85 MCH 29.4 MCHC 34.4 RDW 14.9 H Plt Count 217 Sodium 136.6 L 138.2 Potassium 4.2 3.5 L Chloride 98 100 Carbon Dioxide 24 26 Anion Gap 15 12 BUN 16 20 Creatinine 0.90 1.01 Est GFR ( Amer) > 60 > 60 Est GFR (Non-Af Amer) > 60 > 60 Glucose 123 H 116 H Calcium 8.5 8.6 Magnesium 1.7 12/23/18 12/23/18 19:50 23:20 Troponin I 0.063 0.065 NT-Pro-B Natriuret Pep 130 H Impressions: Chest X-Ray 12/23/18 19:39 IMPRESSION: LEFT basilar opacity raising the possibility of subsegmental atelectasis versus developing consolidation/pneumonia. Please correlate with patient clinical findings and follow-up for resolution. copyright 2010 [employer] All Rights Reserved Chest/Abdomen CTA 12/23/18 20:54 IMPRESSION: Findings compatible acute pulmonary embolism within the left lower lobe posterior basilar segmental pulmonary artery. No evidence of right heart strain. Small left pleural effusion. Superimposed bibasilar consolidative opacity is mostly bandlike, likely indicating atelectasis/scar. However, there may be a component of pulmonary infarction about the left lower lobe. TECHNICAL DOCUMENTATION: Quality ID # [id number]: Final reports with documentation of one or more dose reduction techniques (e.g., Automated exposure control, adjustment of the mA and/or kV according to patient size, use of iterative reconstruction technique) copyright 2011 [employer] All Rights Reserved Assessment and Plan - Diagnosis (1) Acute respiratory failure with hypoxia Is this a current diagnosis for this admission?: Yes (2) Obstructive sleep apnea of adult Is this a current diagnosis for this admission?: Yes (3) Pulmonary embolus with infarction Is this a current diagnosis for this admission?: Yes (4) Morbid obesity Is this a current diagnosis for this admission?: Yes
[2018-12-26] MEDS: ACETAMINOPHEN 325 MG TABLET PO PRN (16:00)
[2018-12-26] MEDS: WARFARIN SODIUM 5 MG TABLET PO SCH (21:37)
[2018-12-27] MEDS: ACETAMINOPHEN 325 MG TABLET PO PRN ×3 (00:54→23:44)
[2018-12-27 05:28] LABS: HEMATOCRIT 36.3 % (37.9-51.0); HEMOGLOBIN 12.4 g/dL (13.5-17.0); MEAN CORPUSCULAR HEMOGLOBIN 29.2 pg (27.0-33.4); MEAN CORPUSCULAR HGB CONC 34.1 g/dL (32.0-36.0); MEAN CORPUSCULAR VOLUME 85 fl (80-97); PLATELET COUNT 217 10^3/uL (150-450); RED BLOOD COUNT 4.25 10^6/uL (4.35-5.55); RED CELL DISTRIBUTION WIDTH 14.9 % (11.5-14.0)
[2018-12-27 05:33] LABS: INTERNATIONAL RATION (INR) 1.23; PROTHROMBIN TIME 16.1 SEC (11.4-15.4)
[2018-12-27 05:57] LABS: ANION GAP 11 (5-19); BLOOD UREA NITROGEN 16 mg/dL (7-20); CALCIUM 8.9 mg/dL (8.4-10.2); CARBON DIOXIDE 29 mmol/L (22-30); CHLORIDE 100 mmol/L (98-107); GLUCOSE 105 mg/dL (75-110); POTASSIUM 3.8 mmol/L (3.6-5.0); SODIUM 140.1 mmol/L (137-145)
[2018-12-27] MEDS: HYDROCODONE/ACETAMINOPHEN 5-325 MG TABLET PO PRN ×2 (06:15→22:43)
[2018-12-27] MEDS: DOCUSATE SODIUM 100 MG CAPSULE PO SCH ×2 (10:00→17:24)
[2018-12-27] MEDS: METOPROLOL TARTRATE 100 MG TABLET PO SCH ×2 (10:00→22:41)
[2018-12-27] MEDS: FLUTICASONE/UMECLIDIN/VILANTER 100-62.5-25 MCG/DOSE IH SCH (10:00)
[2018-12-27] MEDS: FAMOTIDINE 20 MG TABLET PO SCH ×2 (10:01→22:42)
[2018-12-27] MEDS: ENOXAPARIN SODIUM INJ 120 MG/0.8 ML DISP.SYRIN SUBCUT SCH ×2 (10:01→22:42)
[2018-12-27] MEDS: ALLOPURINOL 300 MG TABLET PO SCH ×2 (10:01→17:24)
[2018-12-27] MEDS: LIDOCAINE 5% (700 MG) TRANSDERMAL ADH..PATCH TP SCH (10:01)
--- NOTE | 2018-12-27 11:41 | PDOC PROGRESS REPORT ---
Subjective Progress Note for:: 12/27/18 Subjective:: Subjective: NORBERTO CRISOSTOMO is a 43 year old male who presented to the emergency room with acute chest pain. He admits that while he was having dinner this evening he suddenly developed a sharp, constant, moderately severe stabbing pain in the left side of his anterior lateral chest without radiation. The pain was accompanied by the sudden onset of dyspnea both at rest and increased by exertion. Patient denies prior similar episodes and has not identified any aggravating or ameliorating factors for his acute onset dyspnea. In the [facility] room the patient was found to have an acute left lower lobe pulmonary embolus with infarct by CTA evaluation. With these findings the patient was admitted to hospital for further evaluation and treatment. 12/25/2018: Patient still complaining of pleuritic chest pain. Dilaudid helps but is short-lived. He did not tolerate morphine due to side effects. But overall improving. 12/26/2018: Patient is much better today. He said his pain is improved. His INR is still low. 12/27/2018: Patient is hemodynamically stable. His INR still far from therapeutic. Physical examination: Patient is no acute distress Alert oriented to time place person No anxiety or depression Head: atraumatic normocephalic Pupils: are equal reactive Neck: is supple and trachea is central no lymphadenopathy No pharyngeal erythema or exudates Heart: Regular rate and rhythm Lungs: clear no distress Abdomen: nontender nondistended Neurological exam: unremarkable Musculoskeletal: No joint swelling or effusion chronic lower back pain and tenderness No suicidal or homicidal ideation Assessment and Plan (1) Acute respiratory failure with hypoxia Is this a current diagnosis for this admission?: Yes Plan: Patient be treated with supplemental oxygen as needed to maintain an adequate O2 saturation. His O2 sat will be monitored throughout his hospital course. 12/25/2018: Continue oxygen as needed and wean as tolerated 12/26/2018: Patient continues on oxygen. Wean as tolerated. 12/27/2018: Continue to wean oxygen as tolerated. He is currently on 1 L of oxygen only. (2) Pulmonary embolus with infarction Is this a current diagnosis for this admission?: Yes Plan: Patient is started on immediate treatment with Lovenox 1 mg/kg every 12 hours. He will be converted to a oral therapy as soon as possible utilizing Eliquis or other similar medications to be determined by his insurance coverage. Pulmonology consultation will be obtained. 12/25/18: Due to the lack of insurance we started the patient on Coumadin yesterday. Monitor INR daily. 12/26/2018: INR is 1.25 today. Continue Coumadin and bridging Lovenox. 12/27/2018: INR is 1.23 today. Will increase Coumadin dose to 10 mg daily. Monitor INR. (3) Obstructive sleep apnea of adult Is this a current diagnosis for this admission?: Yes Plan: Patient will be treated with his CPAP at at bedtime while he is in the hospital. He does not use CPAP at home due to noncompliance. (4) Morbid obesity Is this a current diagnosis for this admission?: Yes Plan: Patient will be given dietary consultation during his hospital course. 12/25/2018: Patient was counseled about lifestyle modifications Reason For Visit: ACUTE PULMONARY EMBOLUS WITH INFARCTION Physical Exam Vital Signs: Temp Pulse Resp BP Pulse Ox 98.5 F 102 H 22 H 138/93 H 95 12/27/18 07:59 12/27/18 07:59 12/27/18 07:59 12/27/18 07:59 12/27/18 08:20 Intake & Output 12/26/18 12/27/18 12/28/18 06:59 06:59 06:59 Intake Total 440 2220 Output Total 1700 1100 Balance -1260 1120 Results Laboratory Results: 12/27/18 05:11 12/27/18 05:11 12/27/18 12/27/18 05:11 05:11 WBC 11.0 H RBC 4.25 L Hgb 12.4 L Hct 36.3 L MCV 85 MCH 29.2 MCHC 34.1 RDW 14.9 H Plt Count 217 Sodium 140.1 Potassium 3.8 Chloride 100 Carbon Dioxide 29 Anion Gap 11 BUN 16 Creatinine 0.81 Est GFR ( Amer) > 60 Est GFR (Non-Af Amer) > 60 Glucose 105 Calcium 8.9 Magnesium 1.5 L 12/23/18 12/23/18 19:50 23:20 Troponin I 0.063 0.065 NT-Pro-B Natriuret Pep 130 H Impressions: Chest X-Ray 12/23/18 19:39 IMPRESSION: LEFT basilar opacity raising the possibility of subsegmental atelectasis versus developing consolidation/pneumonia. Please correlate with patient clinical findings and follow-up for resolution. copyright 2011 [employer]- All Rights Reserved Chest/Abdomen CTA 12/23/18 20:54 IMPRESSION: Findings compatible acute pulmonary embolism within the left lower lobe posterior basilar segmental pulmonary artery. No evidence of right heart strain. Small left pleural effusion. Superimposed bibasilar consolidative opacity is mostly bandlike, likely indicating atelectasis/scar. However, there may be a component of pulmonary infarction about the left lower lobe. TECHNICAL DOCUMENTATION: Quality ID # 436: Final reports with documentation of one or more dose reduction techniques (e.g., Automated exposure control, adjustment of the mA and/or kV according to patient size, use of iterative reconstruction technique) copyright 2011 [employer]- All Rights Reserved Assessment and Plan - Diagnosis (1) Acute respiratory failure with hypoxia Is this a current diagnosis for this admission?: Yes (2) Obstructive sleep apnea of adult Is this a current diagnosis for this admission?: Yes (3) Pulmonary embolus with infarction Is this a current diagnosis for this admission?: Yes (4) Morbid obesity Is this a current diagnosis for this admission?: Yes
[2018-12-27] MEDS: POLYETHYLENE GLYCOL 3350 POWDER 17 GM/1 PACKET PO SCH (14:23)
[2018-12-27 16:37] LABS: ALBUMIN UR 67.1 % (.); ALPHA-1-GLOBULIN URINE 1.6 % (.); GAMMA GLOBULIN URINE 17.2 % (.); M-SPIKE % UR Not Observed % (Not Observ); PROTEIN TOTAL URINE 40.6 mg/dL (Not Estab.)
[2018-12-27] MEDS ORDERED: WARFARIN SODIUM 5 MG TABLET PO SCH (22:00)
[2018-12-28 04:44] LABS: INTERNATIONAL RATION (INR) 1.23; PROTHROMBIN TIME 16.1 SEC (11.4-15.4)
[2018-12-28] MEDS: LEVALBUTEROL HCL NEB 0.63 MG/3 ML AMPUL NEB PRN (08:18)
[2018-12-28] MEDS: DOCUSATE SODIUM 100 MG CAPSULE PO SCH ×2 (09:43→17:29)
[2018-12-28] MEDS: METOPROLOL TARTRATE 100 MG TABLET PO SCH ×2 (09:43→22:46)
[2018-12-28] MEDS: FAMOTIDINE 20 MG TABLET PO SCH ×2 (09:43→22:46)
[2018-12-28] MEDS: ENOXAPARIN SODIUM INJ 120 MG/0.8 ML DISP.SYRIN SUBCUT SCH ×2 (09:44→22:47)
[2018-12-28] MEDS: POLYETHYLENE GLYCOL 3350 POWDER 17 GM/1 PACKET PO SCH (09:44)
[2018-12-28] MEDS: ALLOPURINOL 300 MG TABLET PO SCH ×2 (09:44→17:29)
[2018-12-28] MEDS: FLUTICASONE/UMECLIDIN/VILANTER 100-62.5-25 MCG/DOSE IH SCH (09:45)
[2018-12-28] MEDS: LIDOCAINE 5% (700 MG) TRANSDERMAL ADH..PATCH TP SCH (09:45)
--- NOTE | 2018-12-28 10:14 | PDOC PROGRESS REPORT ---
Subjective Progress Note for:: 12/28/18 Subjective:: Subjective: NORBERTO CRISOSTOMO is a 43 year old male who presented to the emergency room with acute chest pain. He admits that while he was having dinner this evening he suddenly developed a sharp, constant, moderately severe stabbing pain in the left side of his anterior lateral chest without radiation. The pain was accompanied by the sudden onset of dyspnea both at rest and increased by exertion. Patient denies prior similar episodes and has not identified any aggravating or ameliorating factors for his acute onset dyspnea. In the [facility] room the patient was found to have an acute left lower lobe pulmonary embolus with infarct by CTA evaluation. With these findings the patient was admitted to hospital for further evaluation and treatment. 12/25/2018: Patient still complaining of pleuritic chest pain. Dilaudid helps but is short-lived. He did not tolerate morphine due to side effects. But overall improving. 12/26/2018: Patient is much better today. He said his pain is improved. His INR is still low. 12/27/2018: Patient is hemodynamically stable. His INR still far from therapeutic. 12/28/2018: INR still 1.23. Will increase Coumadin to 10 mg and he received a dose yesterday. He is breathing better. He is stable on 2 L of nasal cannula oxygen. He is ambulating without any difficulty. Physical examination: Patient is no acute distress Alert oriented to time place person No anxiety or depression Head: atraumatic normocephalic Pupils: are equal reactive Neck: is supple and trachea is central no lymphadenopathy No pharyngeal erythema or exudates Heart: Regular rate and rhythm Lungs: clear no distress Abdomen: nontender nondistended Neurological exam: unremarkable Musculoskeletal: No joint swelling or effusion chronic lower back pain and tenderness No suicidal or homicidal ideation Assessment and Plan (1) Acute respiratory failure with hypoxia Is this a current diagnosis for this admission?: Yes Plan: Patient be treated with supplemental oxygen as needed to maintain an adequate O2 saturation. His O2 sat will be monitored throughout his hospital course. 12/25/2018: Continue oxygen as needed and wean as tolerated 12/26/2018: Patient continues on oxygen. Wean as tolerated. 12/27/2018: Continue to wean oxygen as tolerated. He is currently on 1 L of oxygen only. 12/28/2018: Is currently on 2 L of nasal cannula oxygen. Wean oxygen as tolerated. (2) Pulmonary embolus with infarction Is this a current diagnosis for this admission?: Yes Plan: Patient is started on immediate treatment with Lovenox 1 mg/kg every 12 hours. He will be converted to a oral therapy as soon as possible utilizing Eliquis or other similar medications to be determined by his insurance coverage. Pulmonology consultation will be obtained. 12/25/18: Due to the lack of insurance we started the patient on Coumadin yesterday. Monitor INR daily. 12/26/2018: INR is 1.25 today. Continue Coumadin and bridging Lovenox. 12/27/2018: INR is 1.23 today. Will increase Coumadin dose to 10 mg daily. Monitor INR. 12/28/2018: INR is still 1.23. Received a dose of 10 mg Coumadin last night. Continue current dose of Coumadin. Monitor INR. (3) Obstructive sleep apnea of adult Is this a current diagnosis for this admission?: Yes Plan: Patient will be treated with his CPAP at at bedtime while he is in the hospital. He does not use CPAP at home due to noncompliance. (4) Morbid obesity Is this a current diagnosis for this admission?: Yes Plan: Patient will be given dietary consultation during his hospital course. 12/25/2018: Patient was counseled about lifestyle modifications Reason For Visit: ACUTE PULMONARY EMBOLUS WITH INFARCTION Physical Exam Vital Signs: Temp Pulse Resp BP Pulse Ox 100.0 F 93 16 138/87 H 91 L 12/28/18 07:16 12/28/18 08:22 12/28/18 08:22 12/28/18 07:16 12/28/18 08:22 Intake & Output 12/27/18 12/28/18 12/29/18 06:59 06:59 06:59 Intake Total 2220 1216 Output Total 1100 600 Balance 1120 616 Results Laboratory Results: 12/27/18 05:11 12/27/18 05:11 12/25/18 10:45 Clean Catch Midstream Legionella Urinary Antigen - Final 12/23/18 12/23/18 19:50 23:20 Troponin I 0.063 0.065 NT-Pro-B Natriuret Pep 130 H Impressions: Chest X-Ray 12/23/18 19:39 IMPRESSION: LEFT basilar opacity raising the possibility of subsegmental atelectasis versus developing consolidation/pneumonia. Please correlate with patient clinical findings and follow-up for resolution. copyright 2011 [employer]- All Rights Reserved Chest/Abdomen CTA 12/23/18 20:54 IMPRESSION: Findings compatible acute pulmonary embolism within the left lower lobe posterior basilar segmental pulmonary artery. No evidence of right heart strain. Small left pleural effusion. Superimposed bibasilar consolidative opacity is mostly bandlike, likely indicating atelectasis/scar. However, there may be a component of pulmonary infarction about the left lower lobe. TECHNICAL DOCUMENTATION: Quality ID # [id number]: Final reports with documentation of one or more dose reduction techniques (e.g., Automated exposure control, adjustment of the mA and/or kV according to patient size, use of iterative reconstruction technique) copyright 2011 [employer]- All Rights Reserved Assessment and Plan - Diagnosis (1) Acute respiratory failure with hypoxia Is this a current diagnosis for this admission?: Yes (2) Obstructive sleep apnea of adult Is this a current diagnosis for this admission?: Yes (3) Pulmonary embolus with infarction Is this a current diagnosis for this admission?: Yes (4) Morbid obesity Is this a current diagnosis for this admission?: Yes
[2018-12-28 10:34] LABS: ANION GAP 12 (5-19); BLOOD UREA NITROGEN 14 mg/dL (7-20); CALCIUM 8.8 mg/dL (8.4-10.2); CARBON DIOXIDE 28 mmol/L (22-30); CHLORIDE 99 mmol/L (98-107); GLUCOSE 152 mg/dL (75-110); POTASSIUM 3.6 mmol/L (3.6-5.0); SODIUM 138.8 mmol/L (137-145)
[2018-12-28] MEDS: WARFARIN SODIUM 5 MG TABLET PO SCH (17:30)
[2018-12-28] MEDS: HYDROCODONE/ACETAMINOPHEN 5-325 MG TABLET PO PRN (22:46)
[2018-12-29 05:06] LABS: HEMATOCRIT 35.9 % (37.9-51.0); HEMOGLOBIN 12.1 g/dL (13.5-17.0); MEAN CORPUSCULAR HEMOGLOBIN 28.9 pg (27.0-33.4); MEAN CORPUSCULAR HGB CONC 33.8 g/dL (32.0-36.0); MEAN CORPUSCULAR VOLUME 86 fl (80-97); PLATELET COUNT 243 10^3/uL (150-450); RED CELL DISTRIBUTION WIDTH 14.9 % (11.5-14.0)
[2018-12-29 05:17] LABS: INTERNATIONAL RATION (INR) 1.57; PROTHROMBIN TIME 19.5 SEC (11.4-15.4)
[2018-12-29] MEDS: POLYETHYLENE GLYCOL 3350 POWDER 17 GM/1 PACKET PO SCH (09:23)
[2018-12-29] MEDS: FLUTICASONE/UMECLIDIN/VILANTER 100-62.5-25 MCG/DOSE IH SCH (09:23)
[2018-12-29] MEDS: WARFARIN SODIUM 5 MG TABLET PO SCH (09:24)
[2018-12-29] MEDS: ENOXAPARIN SODIUM INJ 120 MG/0.8 ML DISP.SYRIN SUBCUT SCH ×2 (09:25→21:42)
[2018-12-29] MEDS: LIDOCAINE 5% (700 MG) TRANSDERMAL ADH..PATCH TP SCH (09:25)
[2018-12-29] MEDS: DOCUSATE SODIUM 100 MG CAPSULE PO SCH ×2 (09:25→17:41)
[2018-12-29] MEDS: FAMOTIDINE 20 MG TABLET PO SCH ×2 (09:25→21:42)
[2018-12-29] MEDS: METOPROLOL TARTRATE 100 MG TABLET PO SCH ×2 (09:25→21:41)
[2018-12-29] MEDS: ALLOPURINOL 300 MG TABLET PO SCH ×2 (09:25→17:37)
--- NOTE | 2018-12-29 10:07 | PDOC PROGRESS REPORT ---
Subjective Progress Note for:: 12/29/18 Subjective:: Subjective: NORBERTO CRISOSTOMO is a 43 year old male who presented to the emergency room with acute chest pain. He admits that while he was having dinner this evening he suddenly developed a sharp, constant, moderately severe stabbing pain in the left side of his anterior lateral chest without radiation. The pain was accompanied by the sudden onset of dyspnea both at rest and increased by exertion. Patient denies prior similar episodes and has not identified any aggravating or ameliorating factors for his acute onset dyspnea. In the [facility] room the patient was found to have an acute left lower lobe pulmonary embolus with infarct by CTA evaluation. With these findings the patient was admitted to hospital for further evaluation and treatment. 12/25/2018: Patient still complaining of pleuritic chest pain. Dilaudid helps but is short-lived. He did not tolerate morphine due to side effects. But overall improving. 12/26/2018: Patient is much better today. He said his pain is improved. His INR is still low. 12/27/2018: Patient is hemodynamically stable. His INR still far from therapeutic. 12/28/2018: INR still 1.23. Will increase Coumadin to 10 mg and he received a dose yesterday. He is breathing better. He is stable on 2 L of nasal cannula oxygen. He is ambulating without any difficulty. 12/29/2018: INR was 1.57. He is on 2 L nasal cannula but he tells me that he walks in the bathroom without a and he feels okay. We asked nursing staff to remove oxygen and check his pulse ox without oxygen. Physical examination: Patient is no acute distress Alert oriented to time place person No anxiety or depression Head: atraumatic normocephalic Pupils: are equal reactive Neck: is supple and trachea is central no lymphadenopathy No pharyngeal erythema or exudates Heart: Regular rate and rhythm Lungs: clear no distress Abdomen: nontender nondistended Neurological exam: unremarkable Musculoskeletal: No joint swelling or effusion chronic lower back pain and tenderness No suicidal or homicidal ideation Assessment and Plan (1) Acute respiratory failure with hypoxia Is this a current diagnosis for this admission?: Yes Plan: Patient be treated with supplemental oxygen as needed to maintain an adequate O2 saturation. His O2 sat will be monitored throughout his hospital course. 12/25/2018: Continue oxygen as needed and wean as tolerated 12/26/2018: Patient continues on oxygen. Wean as tolerated. 12/27/2018: Continue to wean oxygen as tolerated. He is currently on 1 L of oxygen only. 12/28/2018: Is currently on 2 L of nasal cannula oxygen. Wean oxygen as tolerated. 12/29/2018: Check pulse ox without oxygen. (2) Pulmonary embolus with infarction Is this a current diagnosis for this admission?: Yes Plan: Patient is started on immediate treatment with Lovenox 1 mg/kg every 12 hours. He will be converted to a oral therapy as soon as possible utilizing Eliquis or other similar medications to be determined by his insurance coverage. Pulm onology consultation will be obtained. 12/25/18: Due to the lack of insurance we started the patient on Coumadin yesterday. Monitor INR daily. 12/26/2018: INR is 1.25 today. Continue Coumadin and bridging Lovenox. 12/27/2018: INR is 1.23 today. Will increase Coumadin dose to 10 mg daily. Monitor INR. 12/28/2018: INR is still 1.23. Received a dose of 10 mg Coumadin last night. Continue current dose of Coumadin. Monitor INR. 12/29/18: INR is 1.57. Continue Coumadin 2 mg. Monitor INR. (3) Obstructive sleep apnea of adult Is this a current diagnosis for this admission?: Yes Plan: Patient will be treated with his CPAP at at bedtime while he is in the hospital. He does not use CPAP at home due to noncompliance. (4) Morbid obesity Is this a current diagnosis for this admission?: Yes Plan: Patient will be given dietary consultation during his hospital course. 12/25/2018: Patient was counseled about lifestyle modifications Reason For Visit: ACUTE PULMONARY EMBOLUS WITH INFARCTION Physical Exam Vital Signs: Temp Pulse Resp BP Pulse Ox 98.9 F 97 20 135/83 H 95 12/29/18 07:36 12/29/18 07:36 12/29/18 09:32 12/29/18 07:36 12/29/18 09:32 Intake & Output 12/28/18 12/29/18 12/30/18 06:59 06:59 06:59 Intake Total 1216 957 Output Total 600 Balance 616 957 Results Laboratory Results: 12/29/18 04:49 12/28/18 04:04 12/28/18 12/29/18 04:04 04:49 WBC 9.0 RBC 4.20 L Hgb 12.1 L Hct 35.9 L MCV 86 MCH 28.9 MCHC 33.8 RDW 14.9 H Plt Count 243 Sodium 138.8 Potassium 3.6 Chloride 99 Carbon Dioxide 28 Anion Gap 12 BUN 14 Creatinine 0.76 Est GFR ( Amer) > 60 Est GFR (Non-Af Amer) > 60 Glucose 152 H Calcium 8.8 12/23/18 12/23/18 19:50 23:20 Troponin I 0.063 0.065 NT-Pro-B Natriuret Pep 130 H Impressions: Chest X-Ray 12/23/18 19:39 IMPRESSION: LEFT basilar opacity raising the possibility of subsegmental atelectasis versus developing consolidation/pneumonia. Please correlate with patient clinical findings and follow-up for resolution. copyright 2010 [email or web address]- All Rights Reserved Chest/Abdomen CTA 12/23/18 20:54 IMPRESSION: Findings compatible acute pulmonary embolism within the left lower lobe posterior basilar segmental pulmonary artery. No evidence of right heart strain. Small left pleural effusion. Superimposed bibasilar consolidative opacity is mostly bandlike, likely indicating atelectasis/scar. However, there may be a component of pulmonary infarction about the left lower lobe. TECHNICAL DOCUMENTATION: Quality ID # [id number]: Final reports with documentation of one or more dose reduction techniques (e.g., Automated exposure control, adjustment of the mA and/or kV according to patient size, use of iterative reconstruction technique) copyright 2011 [email or web address]- All Rights Reserved Assessment and Plan - Diagnosis (1) Acute respiratory failure with hypoxia Is this a current diagnosis for this admission?: Yes (2) Obstructive sleep apnea of adult Is this a current diagnosis for this admission?: Yes (3) Pulmonary embolus with infarction Is this a current diagnosis for this admission?: Yes (4) Morbid obesity Is this a current diagnosis for this admission?: Yes
--- NOTE | 2018-12-29 16:26 | EKG REPORT ---
SEVERITY:- ABNORMAL ECG - SINUS TACHYCARDIA PROBABLE LEFT ATRIAL ABNORMALITY LEFT VENTRICULAR HYPERTROPHY BORDERLINE PROLONGED QT INTERVAL : Confirmed by: Mandy Stauffer 29-Dec-2018 16:25:42
[2018-12-29] MEDS: HYDROCODONE/ACETAMINOPHEN 5-325 MG TABLET PO PRN (17:42)
[2018-12-30 04:48] LABS: HEMATOCRIT 37.2 % (37.9-51.0); HEMOGLOBIN 12.6 g/dL (13.5-17.0); MEAN CORPUSCULAR HEMOGLOBIN 28.9 pg (27.0-33.4); MEAN CORPUSCULAR HGB CONC 33.9 g/dL (32.0-36.0); MEAN CORPUSCULAR VOLUME 85 fl (80-97); PLATELET COUNT 215 10^3/uL (150-450); RED BLOOD COUNT 4.37 10^6/uL (4.35-5.55); RED CELL DISTRIBUTION WIDTH 14.2 % (11.5-14.0)
[2018-12-30 04:51] LABS: INTERNATIONAL RATION (INR) 1.98; PROTHROMBIN TIME 23.5 SEC (11.4-15.4)
[2018-12-30] MEDS: ENOXAPARIN SODIUM INJ 120 MG/0.8 ML DISP.SYRIN SUBCUT SCH ×2 (09:27→21:16)
[2018-12-30] MEDS: WARFARIN SODIUM 5 MG TABLET PO SCH (09:28)
[2018-12-30] MEDS: DOCUSATE SODIUM 100 MG CAPSULE PO SCH ×2 (09:28→17:49)
[2018-12-30] MEDS: LIDOCAINE 5% (700 MG) TRANSDERMAL ADH..PATCH TP SCH (09:28)
[2018-12-30] MEDS: FAMOTIDINE 20 MG TABLET PO SCH ×2 (09:28→21:16)
[2018-12-30] MEDS: ALLOPURINOL 300 MG TABLET PO SCH ×2 (09:28→17:49)
[2018-12-30] MEDS: METOPROLOL TARTRATE 100 MG TABLET PO SCH ×2 (09:28→21:16)
[2018-12-30] MEDS: POLYETHYLENE GLYCOL 3350 POWDER 17 GM/1 PACKET PO SCH (09:29)
[2018-12-30] MEDS: FLUTICASONE/UMECLIDIN/VILANTER 100-62.5-25 MCG/DOSE IH SCH (09:29)
--- NOTE | 2018-12-30 11:30 | PDOC PROGRESS REPORT ---
Subjective Progress Note for:: 12/30/18 Subjective:: 43 year old male who presented to the emergency room with acute chest pain. He admits that while he was having dinner this evening he suddenly developed a sharp, constant, moderately severe stabbing pain in the left side of his anterior lateral chest without radiation. The pain was accompanied by the sudden onset of dyspnea both at rest and increased by exertion. Patient denies prior similar episodes and has not identified any aggravating or ameliorating factors for his acute onset dyspnea. In the emergency room the patient was found to have an acute left lower lobe pulmonary embolus with infarct by CTA evaluation. With these findings the patient was admitted to hospital for further evaluation and treatment. 12/25/2018: Patient still complaining of pleuritic chest pain. Dilaudid helps but is short-lived. He did not tolerate morphine due to side effects. But overall improving. 12/26/2018: Patient is much better today. He said his pain is improved. His INR is still low. 12/27/2018: Patient is hemodynamically stable. His INR still far from thera peutic. 12/28/2018: INR still 1.23. Will increase Coumadin to 10 mg and he received a dose yesterday. He is breathing better. He is stable on 2 L of nasal cannula oxygen. He is ambulating without any difficulty. 12/29/2018: INR was 1.57. He is on 2 L nasal cannula but he tells me that he walks in the bathroom without a and he feels okay. We asked nursing staff to remove oxygen and check his pulse ox without oxygen. 12/30/2018-patient is still complaining of shortness of breath. Family reque sting for CT chest today. Pulse ox is 93% on 2 L. He was admitted with pulmonary embolism presently on Coumadin INR is 1.97 today. Close to therapeutic range. He is presently on 2 mg of Coumadin daily. Reason For Visit: ACUTE PULMONARY EMBOLUS WITH INFARCTION Physical Exam Vital Signs: Temp Pulse Resp BP Pulse Ox 98.1 F 99 16 160/95 H 95 12/30/18 08:14 12/30/18 08:14 12/30/18 08:14 12/30/18 08:14 12/30/18 08:14 Intake & Output 12/29/18 12/30/18 12/31/18 06:59 06:59 06:59 Intake Total 957 2118 Balance 957 185 General appearance: PRESENT: no acute distress, morbidly obese Head exam: PRESENT: atraumatic Eye exam: PRESENT: PERRLA Mouth exam: PRESENT: moist, tongue midline Neck exam: ABSENT: carotid bruit, JVD, lymphadenopathy, thyromegaly Respiratory exam: PRESENT: decreased breath sounds Cardiovascular exam: PRESENT: tachycardia GI/Abdominal exam: PRESENT: normal bowel sounds, soft. ABSENT: distended, guarding, mass, organolmegaly, rebound, tenderness Rectal exam: PRESENT: deferred Extremities exam: PRESENT: full ROM. ABSENT: calf tenderness, clubbing, pedal edema Neurological exam: PRESENT: alert, awake, oriented to person, oriented to place, oriented to time, oriented to situation, CN II-XII grossly intact. ABSENT: motor sensory deficit Psychiatric exam: PRESENT: appropriate affect, normal mood. ABSENT: homicidal ideation, suicidal ideation Results Laboratory Results: 12/30/18 04:07 12/28/18 04:04 12/30/18 04:07 WBC 8.0 RBC 4.37 Hgb 12.6 L Hct 37.2 L MCV 85 MCH 28.9 MCHC 33.9 RDW 14.2 H Plt Count 215 12/23/18 12/23/18 19:50 23:20 Troponin I 0.063 0.065 NT-Pro-B Natriuret Pep 130 H Impressions: Chest X-Ray 12/23/18 19:39 IMPRESSION: LEFT basilar opacity raising the possibility of subsegmental atelectasis versus developing consolidation/pneumonia. Please correlate with patient clinical findings and follow-up for resolution. copyright 2011 [employer]- All Rights Reserved Chest/Abdomen CTA 12/23/18 20:54 IMPRESSION: Findings compatible acute pulmonary embolism within the left lower lobe posterior basilar segmental pulmonary artery. No evidence of right heart strain. Small left pleural effusion. Superimposed bibasilar consolidative opacity is mostly bandlike, likely indicating atelectasis/scar. However, there may be a component of pulmonary infarction about the left lower lobe. TECHNICAL DOCUMENTATION: Quality ID # 436: Final reports with documentation of one or more dose reduction techniques (e.g., Automated exposure control, adjustment of the mA and/or kV according to patient size, use of iterative reconstruction technique) copyright 2011 [employer]- All Rights Reserved Assessment and Plan - Diagnosis (1) Acute respiratory failure with hypoxia Is this a current diagnosis for this admission?: Yes Plan: Patient be treated with supplemental oxygen as needed to maintain an adequate O2 saturation. His O2 sat will be monitored throughout his hospital course. 12/30/2018-patient is presently on 2 L oxygen pulse ox is 93% room air. Acute respiratory failure hypoxia most likely secondary to acute pulmonary embolism. (2) Obstructive sleep apnea of adult Is this a current diagnosis for this admission?: Yes Plan: Patient will be treated with his CPAP at at bedtime while he is in the hospital. He does not use CPAP at home due to noncompliance. 12/30/2018-patient has history of morbid obesity with BMI of more than 42 and obstructive sleep apnea CPAP at bedside. pt Is not compliant with CPAP at home. (3) Pulmonary embolus with infarction Is this a current diagnosis for this admission?: Yes Plan: Patient is started on immediate treatment with Lovenox 1 mg/kg every 12 hours. He will be converted to a oral therapy as soon as possible utilizing Eliquis or other similar medications to be determined by his insurance coverage. Pul monology consultation will be obtained. 12/30/2018-patient came in with acute pulmonary embolism he is on Coumadin INR is 1.97 today. Plan is to check PT/INR on regular basis. presently Coumadin 10 mg p.o. nightly. (4) Tobacco abuse Is this a current diagnosis for this admission?: Yes Plan: 12/30/2018-patient is a chronic smoker to put him on nicotine patch daily smoking counseling was provided for more than 20 minutes. (5) Congestive heart failure (CHF) Qualifiers: Qualified Code(s): I50.31 - Acute diastolic (congestive) heart failure Is this a current diagnosis for this admission?: No Plan: 12/30/2018-patient might have a congestive heart failure. Chest x-ray shows cardiomegaly. Plan to do the CT chest today and (6) Hypertension Qualifiers: Hypertension type: unspecified Qualified Code(s): I10 - Essential (primary) hypertension Is this a current diagnosis for this admission?: No Plan: 12/30/2018-patient blood pressure today is 138/89. Relatively stable. Plan is to continue to closely monitor his heart rate. (7) Morbid obesity with BMI of 40.0-44.9, adult Is this a current diagnosis for this admission?: No Plan: 12/30/2018-patient's BMI is more than 40. Signs weight loss lifestyle modifications are discussed with the patient. - Time Time Spent with patient: 15-24 minutes Smoking Cessation Education: over 10 minutes Medications reviewed and adjusted accordingly: Yes Anticipated discharge: Home
[2018-12-30 13:36] LABS: A/G RATIO. 0.9 (0.7-1.7); ALBUMIN 3 3.7 g/dL (2.9-4.4); ALPHA-1-GLOBULIN 0.3 g/dL (0.0-0.4); BETA GLOBULIN 1.2 g/dL (0.7-1.3); GAMMA GLOBULINS 2.1 g/dL (0.4-1.8); IMMUNOGLOBULIN A 502 mg/dL (90-386); IMMUNOGLOBULIN G 2179 mg/dL (700-1600); IMMUNOGLOBULIN M 77 mg/dL (20-172); MONOCLONAL-SPIKE Not Observed g/dL (Not Observ); PROTEIN TOTAL SERUM 8.2 g/dL (6.0-8.5)
[2018-12-31 06:01] LABS: HEMATOCRIT 38.4 % (37.9-51.0); HEMOGLOBIN 12.8 g/dL (13.5-17.0); MEAN CORPUSCULAR HEMOGLOBIN 28.4 pg (27.0-33.4); MEAN CORPUSCULAR HGB CONC 33.4 g/dL (32.0-36.0); MEAN CORPUSCULAR VOLUME 85 fl (80-97); PLATELET COUNT 287 10^3/uL (150-450); RED BLOOD COUNT 4.52 10^6/uL (4.35-5.55); RED CELL DISTRIBUTION WIDTH 14.4 % (11.5-14.0); WHITE BLOOD COUNT 8.6 10^3/uL (4.0-10.5)
[2018-12-31 06:09] LABS: INTERNATIONAL RATION (INR) 2.23; PROTHROMBIN TIME 25.8 SEC (11.4-15.4)
[2018-12-31 06:22] LABS: ALANINE AMINOTRANSFERASE 25 U/L (21-72); ALBUMIN 3.5 g/dL (3.5-5.0); ALKALINE PHOSPHATASE 158 U/L (38-126); ANION GAP 14 (5-19); ASPARTATE AMINO TRANSFERASE 33 U/L (17-59); BILIRUBIN,DIRECT 0.5 mg/dL (0.0-0.4); BILIRUBIN,TOTAL 0.7 mg/dL (0.2-1.3); BLOOD UREA NITROGEN 15 mg/dL (7-20); CALCIUM 9.1 mg/dL (8.4-10.2); CARBON DIOXIDE 27 mmol/L (22-30); CHLORIDE 102 mmol/L (98-107); GLUCOSE 103 mg/dL (75-110); SODIUM 142.9 mmol/L (137-145); TOTAL PROTEIN 7.6 g/dL (6.3-8.2)
--- NOTE | 2018-12-31 08:43 | RADIOLOGY REPORT (SQ) ---
EXAM DESCRIPTION: CT CHEST WITHOUT COMPLETED DATE/TIME: 12/31/2018 8:04 am REASON FOR STUDY: shortness of breath COMPARISON: CT angio chest 09/22/2016, 05/31/2018, 12/23/2018 TECHNIQUE: CT scan performed of the chest without intravenous contrast. Images reviewed with lung, soft tissue and bone windows. Reconstructed coronal and sagittal MPR images reviewed. All images st ored on PACS. All CT scanners at this facility use dose modulation, iterative reconstruction, and/or weight based d osing when appropriate to reduce radiation dose to as low as reasonably achievable (ALARA). [facility]: Dose Right [facility]: CareDose [facility]: Dose Right [facility]: Teradose 4D [facility]: Snipi RADIATION DOSE: 19 mGy. LIMITATIONS: None FINDINGS: LUNGS AND PLEURA: Since 12/23/2018, the patient has developed left lower lobe collapse spar ing the superior segment. There is partial collapse of the lingula. Patient has developed a small l eft pleural effusion. There is minimal right basilar atelectasis. No right lung consolidation. No right or left pneumothorax HILAR AND MEDIASTINAL STRUCTURES: No identified masses or abnormal nodes. No obvious aneurysm. HEART AND VASCULAR STRUCTURES: No aneurysm. No pericardial effusion. UPPER ABDOMEN: No significant findings. Limited exam. THYROID AND OTHER SOFT TISSUES: Diffuse thyromegaly BONES: No significant finding. HARDWARE: None in the chest. OTHER: No other significant findings. IMPRESSION: Since the prior CT exam 12/23/2018 which demonstrated left lower lobe pulmonary emboli, heidi marion has developed near complete collapse of the left lower lobe, partial collapse of the lingula, and a small left pleural effusion TECHNICAL DOCUMENTATION: JOB ID: [id number] Quality ID # 436: Final reports with documentation of one or more dose reduction techniques (e.g., Au tomated exposure control, adjustment of the mA and/or kV according to patient size, use of iterative reconstruction technique) 2010 [employer]- All Rights Reserved Reading location - IP/workstation name: [email or web address]
[2018-12-31] MEDS: FAMOTIDINE 20 MG TABLET PO SCH ×2 (09:32→21:51)
[2018-12-31] MEDS: ENOXAPARIN SODIUM INJ 120 MG/0.8 ML DISP.SYRIN SUBCUT SCH ×2 (09:32→21:50)
[2018-12-31] MEDS: METOPROLOL TARTRATE 100 MG TABLET PO SCH ×2 (09:32→21:51)
[2018-12-31] MEDS: ALLOPURINOL 300 MG TABLET PO SCH ×2 (09:32→18:00)
[2018-12-31] MEDS: WARFARIN SODIUM 5 MG TABLET PO SCH (09:32)
[2018-12-31] MEDS: DOCUSATE SODIUM 100 MG CAPSULE PO SCH ×2 (09:32→17:43)
[2018-12-31] MEDS: POLYETHYLENE GLYCOL 3350 POWDER 17 GM/1 PACKET PO SCH (09:33)
[2018-12-31] MEDS: LIDOCAINE 5% (700 MG) TRANSDERMAL ADH..PATCH TP SCH (09:33)
[2018-12-31] MEDS: FLUTICASONE/UMECLIDIN/VILANTER 100-62.5-25 MCG/DOSE IH SCH (09:34)
--- NOTE | 2018-12-31 18:09 | PDOC PROGRESS REPORT ---
Subjective Progress Note for:: 12/31/18 Subjective:: No adverse events overnight. No new complaints. He states he still gets fatigued very easily. He said he cannot sleep lying down. He said he was supposed to have a CPAP sometime ago but never got it. He denies any shortness of breath at rest. No fevers. Reason For Visit: ACUTE PULMONARY EMBOLUS WITH INFARCTION Physical Exam Vital Signs: Temp Pulse Resp BP Pulse Ox 98.5 F 91 20 157/102 H 95 12/31/18 08:15 12/31/18 14:00 12/31/18 11:36 12/31/18 08:15 12/31/18 11:36 Intake & Output 12/30/18 12/31/18 01/01/19 06:59 06:59 06:59 Intake Total 1859 1630 962 Balance 1859 1630 962 Weight 110.9 kg General appearance: PRESENT: no acute distress, cooperative, disheveled, morbidly obese Respiratory exam: PRESENT: decreased breath sounds - Left lower lobe, symmetrical, unlabored. ABSENT: accessory muscle use, chest wall tenderness, crackles, prolonged expiratory phas, rhonchi, tachypnea, wheezes Cardiovascular exam: PRESENT: RRR, +S1, +S2 Pulses: PRESENT: normal carotid pulses Vascular exam: PRESENT: normal capillary refill GI/Abdominal exam: PRESENT: normal bowel sounds, soft. ABSENT: distended, guarding, rebound, tenderness Extremities exam: ABSENT: clubbing, pedal edema Musculoskeletal exam: PRESENT: normal inspection. ABSENT: deformity Neurological exam: PRESENT: alert, awake, oriented to person, oriented to place, oriented to time, oriented to situation Psychiatric exam: PRESENT: anxious, normal mood Skin exam: PRESENT: dry, warm Results Laboratory Results: 12/31/18 05:45 12/31/18 05:45 12/24/18 12/31/18 12/31/18 14:48 05:45 05:45 WBC 8.6 RBC 4.52 Hgb 12.8 L Hct 38.4 MCV 85 MCH 28.4 MCHC 33.4 RDW 14.4 H Plt Count 287 Sodium 142.9 Potassium 4.0 Chloride 102 Carbon Dioxide 27 Anion Gap 14 BUN 15 Creatinine 0.76 Est GFR ( Amer) > 60 Est GFR (Non-Af Amer) > 60 Glucose 103 Calcium 9.1 Magnesium 1.5 L Total Bilirubin 0.7 AST 33 ALT 25 Alkaline Phosphatase 158 H Total Protein 8.2 7.6 Albumin 3.7 3.5 12/23/18 12/23/18 19:50 23:20 Troponin I 0.063 0.065 NT-Pro-B Natriuret Pep 130 H Impressions: Chest X-Ray 12/23/18 19:39 IMPRESSION: LEFT basilar opacity raising the possibility of subsegmental atelectasis versus developing consolidation/pneumonia. Please correlate with patient clinical findings and follow-up for resolution. copyright 2010 [employer]- All Rights Reserved Chest/Abdomen CTA 12/23/18 20:54 IMPRESSION: Findings compatible acute pulmonary embolism within the left lower lobe posterior basilar segmental pulmonary artery. No evidence of right heart strain. Small left pleural effusion. Superimposed bibasilar consolidative opacity is mostly bandlike, likely indicating atelectasis/scar. However, there may be a component of pulmonary infarction about the left lower lobe. TECHNICAL DOCUMENTATION: Quality ID # 436: Final reports with documentation of one or more dose reduction techniques (e.g., Automated exposure control, adjustment of the mA and/or kV according to patient size, use of iterative reconstruction technique) copyright 2010 [employer]- All Rights Reserved Chest CT 12/30/18 00:00 IMPRESSION: Since the prior CT exam 12/23/2018 which demonstrated left lower lobe pulmonary emboli, patient has developed near complete collapse of the left lower lobe, partial collapse of the lingula, and a small left pleural effusion Assessment and Plan - Diagnosis (1) Acute respiratory failure with hypoxia Is this a current diagnosis for this admission?: Yes Plan: Resolved. (2) Morbid obesity with BMI of 40.0-44.9, adult Is this a current diagnosis for this admission?: Yes Plan: Strongly encouraged lifestyle modification with primary care follow-up (3) Obstructive sleep apnea of adult Is this a current diagnosis for this admission?: Yes Plan: Encouraged that he follow-up with primary care provider see that he get set up with a sleep study. He said he is in the process of getting his insurance approved. (4) Pulmonary embolus with infarction Is this a current diagnosis for this admission?: Yes Plan: INR is therapeutic on Coumadin. If he has been on Lovenox for's and Coumadin for at least 5 days we will discontinue the Lovenox. He did have some left lower lobe collapse on CT scan yesterday so we are encouraging coughing and deep breathing exercises along with incentive spirometry and will see if Dr. Ann has any other ideas. - Time Time Spent with patient: 25-34 minutes
--- NOTE | 2018-12-31 18:49 | XCELERA REPORT ---
[address] [address] Transthoracic Echocardiogram Report Name: NORBERTO CRISOSTOMO Age: 43 yrs Gender: Male : 1975 Patient Status: Inpatient Patient Location: [address] [place], [place] [address] Study Date: 12/31/2018 03:36 PM Height: 65 in Weight: 253 lb BSA: 2.2 m2 Procedure: A two-dimensional transthoracic echocardiogram with color flow and Doppler was performed. The study was technically limited with all images being suboptimal in quality. Reason For Study: chf History: CHF. Ordering Physician: RUBINA KIRKPATRICK Performed By: Isis Romeo Interpretation Summary CHF The left ventricle is normal in size. There is normal left ventricular wall thickness. LV EF is 55% Left ventricular systolic function is low normal. Doppler measurements suggest normal left ventricular diastolic function The left ventricular wall motion is normal. No ASD , VSD ,or PFO seen. The right ventricle is grossly normal size. The right atrium is normal. The left atrial size is normal. There is no evidence of mitral valve prolapse. There is no vegetation seen on the mitral valve. There is no mitral valve stenosis. There is a trace to mild amount of mitral regurgitation There is no aortic valvular vegetation. There is no aortic valve stenosis There is no LVOT obstruction. No aortic regurgitation is present. There is no tricuspid stenosis. There is a trace amount of tricuspid regurgitation Right ventricular systolic pressure is normal. RVSP is 21 to 26 mm of Hg , with R mean of 5 to 10. The pulmonic valve is not well visualized. The aortic root is normal size. The inferior vena cava appeared normal and decreased > 50% with respiration (RAP 5-10 mmHg) Minimal pericardial effusion. There are no echocardiographic or Doppler indications for cardiac tamponade MMode/2D Measurements & Calculations RVDd: 4.0 cm LVIDd: 5.3 cm FS: 23.2 % Ao root diam: 2.7 cm IVSd: 1.1 cm LVIDs: 4.0 cm EDV(Teich): LVPWd: 1.1 cm 132.7 ml Ao root area: ESV(Teich): 5.8 cm2 71.5 ml LA dimension: EF(Teich): 46.1 % 3.7 cm LVLd ap4: 9.8 cm SV(MOD-sp4): EDV(MOD-sp4): 62.0 ml 134.0 ml LVLs ap4: 8.3 cm ESV(MOD-sp4): 72.0 ml EF(MOD-sp4): 46.3 % Doppler Measurements & Calculations MV E max juan: MV P1/2t max juan: Ao V2 max: LV V1 max P.9 cm/sec 85.3 cm/sec 132.1 cm/sec 5.1 mmHg MV A max juan: MV P1/2t: 41.9 msec Ao max P.0 mmHg LV V1 max: 59.8 cm/sec MVA(P1/2t): 5.3 cm2 113.0 cm/sec MV E/A: 1.4 MV dec slope: 596.4 cm/sec2 MV dec time: 0.15 sec PA V2 max: TR max juan: MV P1/2t-pr_phl: 86.4 cm/sec 197.2 cm/sec 41.9 msec PA max PG: TR max P.6 mmHg 3.0 mmHg Left Ventricle The left ventricle is normal in size. There is normal left ventricular wall thickness. LV EF is 55%. Left ventricular systolic function is low normal. Doppler measurements suggest normal left ventricular diastolic function. The left ventricular wall motion is normal. No ASD , VSD ,or PFO seen. There is no thrombus. Right Ventricle The right ventricle is grossly normal size. Atria The right atrium is normal. The left atrial size is normal. Mitral Valve There is no evidence of mitral valve prolapse. There is no vegetation seen on the mitral valve. There is no mitral valve stenosis. There is a trace to mild amount of mitral regurgitation. Aortic Valve There is no aortic valvular vegetation. There is no aortic valve stenosis. There is no LVOT obstruction. No aortic regurgitation is present. Tricuspid Valve There is no tricuspid stenosis. There is a trace amount of tricuspid regurgitation. Right ventricular systolic pressure is normal. RVSP is 21 to 26 mm of Hg , with R mean of 5 to 10. Pulmonic Valve The pulmonic valve is not well visualized. Great Vessels The aortic root is normal size. The inferior vena cava appeared normal and decreased > 50% with respiration (RAP 5-10 mmHg). Effusions Minimal pericardial effusion. There are no echocardiographic or Doppler indications for cardiac tamponade. : RUBINA KIRKPATRICK > Lesley Shipman
[2019-01-01 05:56] LABS: HEMATOCRIT 38.3 % (37.9-51.0); HEMOGLOBIN 13.1 g/dL (13.5-17.0); MEAN CORPUSCULAR HEMOGLOBIN 28.9 pg (27.0-33.4); MEAN CORPUSCULAR HGB CONC 34.1 g/dL (32.0-36.0); MEAN CORPUSCULAR VOLUME 85 fl (80-97); PLATELET COUNT 324 10^3/uL (150-450); RED BLOOD COUNT 4.52 10^6/uL (4.35-5.55); RED CELL DISTRIBUTION WIDTH 14.5 % (11.5-14.0); WHITE BLOOD COUNT 8.5 10^3/uL (4.0-10.5)
[2019-01-01] MEDS: DOCUSATE SODIUM 100 MG CAPSULE PO SCH ×2 (09:18→17:24)
[2019-01-01] MEDS: POLYETHYLENE GLYCOL 3350 POWDER 17 GM/1 PACKET PO SCH (09:18)
[2019-01-01] MEDS: LIDOCAINE 5% (700 MG) TRANSDERMAL ADH..PATCH TP SCH (09:18)
[2019-01-01] MEDS: FAMOTIDINE 20 MG TABLET PO SCH ×2 (09:21→22:01)
[2019-01-01] MEDS: WARFARIN SODIUM 5 MG TABLET PO SCH (09:22)
[2019-01-01] MEDS: METOPROLOL TARTRATE 100 MG TABLET PO SCH ×2 (09:22→22:00)
[2019-01-01] MEDS: ENOXAPARIN SODIUM INJ 120 MG/0.8 ML DISP.SYRIN SUBCUT SCH ×2 (09:22→21:59)
[2019-01-01] MEDS: ALLOPURINOL 300 MG TABLET PO SCH ×2 (09:22→17:26)
[2019-01-01] MEDS: FLUTICASONE/UMECLIDIN/VILANTER 100-62.5-25 MCG/DOSE IH SCH (09:22)
[2019-01-01 12:47] LABS: APPEARANCE,URINE CLEAR; BILIRUBIN,URINE NEGATIVE (NEGATIVE); COLOR,URINE YELLOW; GLUCOSE, URINE NEGATIVE (NEGATIVE); KETONES,URINE NEGATIVE (NEGATIVE); LEUKOCYTE ESTERASE,URINE NEGATIVE (NEGATIVE); NITRITE,URINE NEGATIVE (NEGATIVE); PROTEIN,URINE 30 mg/dL (NEGATIVE); URINE SPECIFIC GRAVITY 1.014; UROBILINOGEN,URINE NEGATIVE mg/dL (<2.0)
--- NOTE | 2019-01-01 14:17 | RADIOLOGY REPORT (SQ) ---
EXAM DESCRIPTION: CHEST SINGLE VIEW COMPLETED DATE/TIME: 01/01/2019 1:40 pm REASON FOR STUDY: left lower lobe collapse COMPARISON: 12/23/2018 EXAM PARAMETERS: NUMBER OF VIEWS: One view. TECHNIQUE: Single frontal radiographic view of the chest acquired. RADIATION DOSE: NA LIMITATIONS: None. FINDINGS: LUNGS AND PLEURA: Moderate left effusion. Atelectasis at the left base. Right lung is cl ear. MEDIASTINUM AND HILAR STRUCTURES: No masses. Contour normal. HEART AND VASCULAR STRUCTURES: Heart normal in size. Normal vasculature. BONES: No acute findings. HARDWARE: None in the chest. OTHER: No other significant finding. IMPRESSION: Moderate left effusion. Left basilar atelectasis. TECHNICAL DOCUMENTATION: JOB ID: [id number] [employer]- All Rights Reserved Reading location - IP/workstation name: [email or web address]
--- NOTE | 2019-01-01 18:30 | PDOC PROGRESS REPORT ---
Subjective Progress Note for:: 01/01/19 Subjective:: No adverse events overnight. No new complaints. Vital signs been stable. Eating and drinking without difficulty. No chest pain or shortness of breath. Ambulating independently. Reason For Visit: ACUTE PULMONARY EMBOLUS WITH INFARCTION Physical Exam Vital Signs: Temp Pulse Resp BP Pulse Ox 97.3 F 92 16 132/81 H 96 01/01/19 07:27 01/01/19 14:00 01/01/19 07:27 01/01/19 07:27 01/01/19 07:27 Intake & Output 12/31/18 01/01/19 01/02/19 06:59 06:59 06:59 Intake Total 1630 1442 Balance 1630 1442 Weight 110.9 kg 108.6 kg General appearance: PRESENT: no acute distress, cooperative, disheveled, morbidly obese Respiratory exam: PRESENT: decreased breath sounds - Left lower lobe, s ymmetrical, unlabored. ABSENT: accessory muscle use, chest wall tenderness, crackles, prolonged expiratory phas, rhonchi, tachypnea, wheezes Cardiovascular exam: PRESENT: RRR, +S1, +S2 Pulses: PRESENT: normal carotid pulses Vascular exam: PRESENT: normal capillary refill GI/Abdominal exam: PRESENT: normal bowel sounds, soft. ABSENT: distended, guarding, rebound, tenderness Extremities exam: ABSENT: clubbing, pedal edema Musculoskeletal exam: PRESENT: normal inspection. ABSENT: deformity Neurological exam: PRESENT: alert, awake, oriented to person, oriented to place, oriented to time, oriented to situation Psychiatric exam: PRESENT: anxious, normal mood Skin exam: PRESENT: dry, warm Results Laboratory Results: 01/01/19 05:20 12/31/18 05:45 01/01/19 01/01/19 05:20 12:29 WBC 8.5 RBC 4.52 Hgb 13.1 L Hct 38.3 MCV 85 MCH 28.9 MCHC 34.1 RDW 14.5 H Plt Count 324 Urine Color YELLOW Urine Appearance CLEAR Urine pH 6.0 Ur Specific [place] 1.014 Urine Protein 30 H Urine Glucose (UA) NEGATIVE Urine Ketones NEGATIVE Urine Blood SMALL H Urine Nitrite NEGATIVE Ur Leukocyte Esterase NEGATIVE Urine WBC (Auto) 4 Urine RBC (Auto) 0 12/23/18 12/23/18 19:50 23:20 Troponin I 0.063 0.065 NT-Pro-B Natriuret Pep 130 H Impressions: Chest/Abdomen CTA 12/23/18 20:54 IMPRESSION: Findings compatible acute pulmonary embolism within the left lower lobe posterior basilar segmental pulmonary artery. No evidence of right heart strain. Small left pleural effusion. Superimposed bibasilar consolidative opacity is mostly bandlike, likely indicating atelectasis/scar. However, there may be a component of pulmonary infarction about the left lower lobe. TECHNICAL DOCUMENTATION: Quality ID # [id number]: Final reports with documentation of one or more dose reduction techniques (e.g., Automated exposure control, adjustment of the mA and/or kV according to patient size, use of iterative reconstruction technique) copyright 2011 [employer]- All Rights Reserved Chest CT 12/30/18 00:00 IMPRESSION: Since the prior CT exam 12/23/2018 which demonstrated left lower lobe pulmonary emboli, patient has developed near complete collapse of the left lower lobe, partial collapse of the lingula, and a small left pleural effusion Chest X-Ray 01/01/19 00:00 IMPRESSION: Moderate left effusion. Left basilar atelectasis. Assessment and Plan - Diagnosis (1) Acute respiratory failure with hypoxia Is this a current diagnosis for this admission?: Yes Plan: Resolved. (2) Morbid obesity with BMI of 40.0-44.9, adult Is this a current diagnosis for this admission?: Yes Plan: Strongly encouraged lifestyle modification with primary care follow-up (3) Obstructive sleep apnea of adult Is this a current diagnosis for this admission?: Yes Plan: Encouraged that he follow-up with primary care provider see that he get set up with a sleep study. He said he is in the process of getting his insurance approved. (4) Pulmonary embolus with infarction Is this a current diagnosis for this admission?: Yes Plan: He will continue Lovenox today and then he should be done with that. He will continue on his current dose of Coumadin. (5) Pleural effusion, left Is this a current diagnosis for this admission?: Yes Plan: As a result of pulmonary infarct from his pulmonary embolism. It is moderate in size. Before I discharge him home, I will talk to pulmonology to see if they think it should be drained. If he is getting around well enough and not getting short of breath, we may just leave it alone and let it come down on its own. - Time Time Spent with patient: 15-24 minutes
[2019-01-02] MEDS: DOCUSATE SODIUM 100 MG CAPSULE PO SCH ×2 (09:02→18:02)
[2019-01-02] MEDS: POLYETHYLENE GLYCOL 3350 POWDER 17 GM/1 PACKET PO SCH (09:02)
[2019-01-02] MEDS: LIDOCAINE 5% (700 MG) TRANSDERMAL ADH..PATCH TP SCH (09:02)
[2019-01-02] MEDS: ENOXAPARIN SODIUM INJ 120 MG/0.8 ML DISP.SYRIN SUBCUT SCH ×2 (09:04→21:30)
[2019-01-02] MEDS: WARFARIN SODIUM 5 MG TABLET PO SCH (09:04)
[2019-01-02] MEDS: ALLOPURINOL 300 MG TABLET PO SCH ×2 (09:04→18:09)
[2019-01-02] MEDS: METOPROLOL TARTRATE 100 MG TABLET PO SCH ×2 (09:04→21:29)
[2019-01-02] MEDS: FAMOTIDINE 20 MG TABLET PO SCH ×2 (09:04→21:29)
[2019-01-02] MEDS: FLUTICASONE/UMECLIDIN/VILANTER 100-62.5-25 MCG/DOSE IH SCH (09:05)
--- NOTE | 2019-01-02 10:19 | PDOC PROGRESS REPORT ---
Subjective Progress Note for:: 01/02/19 Subjective:: i feel better Reason For Visit: ACUTE PULMONARY EMBOLUS WITH INFARCTION Physical Exam Vital Signs: Temp Pulse Resp BP Pulse Ox 98.6 F 94 20 120/64 93 01/02/19 03:19 01/02/19 07:00 01/02/19 03:19 01/02/19 03:19 01/02/19 03:19 Intake & Output 01/01/19 01/02/19 01/03/19 06:59 06:59 06:59 Intake Total 1442 1416 Balance 1442 1416 Weight 108.6 kg 107.5 kg General appearance: PRESENT: no acute distress, morbidly obese Head exam: PRESENT: atraumatic, normocephalic Eye exam: PRESENT: conjunctiva pale, EOMI Mouth exam: PRESENT: moist, neck supple Neck exam: ABSENT: carotid bruit, full ROM, JVD, lymphadenopathy, meningismus, tenderness, thyromegaly, tracheal deviation, tracheostomy, other Respiratory exam: PRESENT: decreased breath sounds, prolonged expiratory phas, rhonchi, unlabored. ABSENT: retraction, stridor Cardiovascular exam: PRESENT: RRR, +S1, +S2 Pulses: PRESENT: normal radial pulses GI/Abdominal exam: PRESENT: soft Extremities exam: ABSENT: calf tenderness, clubbing, joint swelling Musculoskeletal exam: ABSENT: deformity, dislocation Neurological exam: PRESENT: alert, awake Psychiatric exam: PRESENT: appropriate affect Skin exam: PRESENT: dry, warm Results Laboratory Results: 01/01/19 05:20 12/31/18 05:45 01/01/19 12:29 Urine Color YELLOW Urine Appearance CLEAR Urine pH 6.0 Ur Specific Abbot 1.014 Urine Protein 30 H Urine Glucose (UA) NEGATIVE Urine Ketones NEGATIVE Urine Blood SMALL H Urine Nitrite NEGATIVE Ur Leukocyte Esterase NEGATIVE Urine WBC (Auto) 4 Urine RBC (Auto) 0 12/23/18 12/23/18 19:50 23:20 Troponin I 0.063 0.065 NT-Pro-B Natriuret Pep 130 H Impressions: Chest/Abdomen CTA 12/23/18 20:54 IMPRESSION: Findings compatible acute pulmonary embolism within the left lower lobe posterior basilar segmental pulmonary artery. No evidence of right heart strain. Small left pleural effusion. Superimposed bibasilar consolidative opacity is mostly bandlike, likely indicating atelectasis/scar. However, there may be a component of pulmonary infarction about the left lower lobe. TECHNICAL DOCUMENTATION: Quality ID # [id number]: Final reports with documentation of one or more dose reduction techniques (e.g., Automated exposure control, adjustment of the mA and/or kV according to patient size, use of iterative reconstruction technique) copyright 2010 [employer]- All Rights Reserved Chest CT 12/30/18 00:00 IMPRESSION: Since the prior CT exam 12/23/2018 which demonstrated left lower lobe pulmonary emboli, patient has developed near complete collapse of the left lower lobe, partial collapse of the lingula, and a small left pleural effusion Chest X-Ray 01/01/19 00:00 IMPRESSION: Moderate left effusion. Left basilar atelectasis. Assessment & Plan - Diagnosis (1) Pleural effusion, left Is this a current diagnosis for this admission?: Yes Plan: discussed with Dr Combs agree L effusion must be tapped (2) Pulmonary embolus with infarction Is this a current diagnosis for this admission?: Yes Plan: stable w anticoagulation
--- NOTE | 2019-01-02 18:13 | PDOC PROGRESS REPORT ---
Subjective Progress Note for:: 01/02/19 Subjective:: No adverse events overnight. He said he had a hard time falling asleep with the BiPAP mask on. No chest pain or shortness of breath. He is able to ambulate to the bathroom without getting too short of breath. He is complaining of some numbness of the fourth and fifth digits of his right hand with a pins and needle sensation without any similar sensation anywhere else in his arm. Reason For Visit: ACUTE PULMONARY EMBOLUS WITH INFARCTION Physical Exam Vital Signs: Temp Pulse Resp BP Pulse Ox 99.0 F 96 16 127/77 H 98 01/02/19 11:12 01/02/19 14:00 01/02/19 09:13 01/02/19 11:12 01/02/19 11:12 Intake & Output 01/01/19 01/02/19 01/03/19 06:59 06:59 06:59 Intake Total 1442 1416 1260 Balance 1442 1416 1260 Weight 108.6 kg 107.5 kg General appearance: PRESENT: no acute distress, cooperative, disheveled, morbidly obese Respiratory exam: PRESENT: decreased breath sounds - Left lower lobe, symmetrical, unlabored. ABSENT: accessory muscle use, chest wall tenderness, crackles, prolonged expiratory phas, rhonchi, tachypnea, wheezes Cardiovascular exam: PRESENT: RRR, +S1, +S2 Pulses: PRESENT: normal carotid pulses Vascular exam: PRESENT: normal capillary refill GI/Abdominal exam: PRESENT: normal bowel sounds, soft. ABSENT: distended, guarding, rebound, tenderness Extremities exam: ABSENT: clubbing, pedal edema Musculoskeletal exam: PRESENT: normal inspection. ABSENT: deformity Neurological exam: PRESENT: alert, awake, oriented to person, oriented to place, oriented to time, oriented to situation Psychiatric exam: PRESENT: anxious, normal mood Skin exam: PRESENT: dry, warm Results Laboratory Results: 01/01/19 05:20 12/31/18 05:45 12/23/18 12/23/18 19:50 23:20 Troponin I 0.063 0.065 NT-Pro-B Natriuret Pep 130 H Impressions: Chest/Abdomen CTA 12/23/18 20:54 IMPRESSION: Findings compatible acute pulmonary embolism within the left lower lobe posterior basilar segmental pulmonary artery. No evidence of right heart strain. Small left pleural effusion. Superimposed bibasilar consolidative opacity is mostly bandlike, likely indicating atelectasis/scar. However, there may be a component of pulmonary infarction about the left lower lobe. TECHNICAL DOCUMENTATION: Quality ID # [id number]: Final reports with documentation of one or more dose reduction techniques (e.g., Automated exposure control, adjustment of the mA and/or kV according to patient size, use of iterative reconstruction technique) copyright 2011 [email or web address]- All Rights Reserved Chest CT 12/30/18 00:00 IMPRESSION: Since the prior CT exam 12/23/2018 which demonstrated left lower lobe pulmonary emboli, patient has developed near complete collapse of the left lower lobe, partial collapse of the lingula, and a small left pleural effusion Chest X-Ray 01/01/19 00:00 IMPRESSION: Moderate left effusion. Left basilar atelectasis. Assessment and Plan - Diagnosis (1) Acute respiratory failure with hypoxia Is this a current diagnosis for this admission?: Yes Plan: Resolved (2) Morbid obesity with BMI of 40.0-44.9, adult Is this a current diagnosis for this admission?: Yes Plan: Strongly encourage smoking cessation and lifestyle modification (3) Obstructive sleep apnea of adult Is this a current diagnosis for this admission?: Yes Plan: Encouraged that he follow-up with primary care provider see that he get set up with a sleep study. He said he is in the process of getting his insurance approved. (4) Pulmonary embolus with infarction Is this a current diagnosis for this admission?: Yes Plan: We are having him continue Lovenox and stopping his Coumadin so that his INR will come down so that we can get a thoracentesis. We will then re-bridge him on Lovenox until his INR level comes back up to the therapeutic range on Coumadin. (5) Pleural effusion, left Is this a current diagnosis for this admission?: Yes Plan: Spoke with Dr. Ann, and he agreed that that fluid needs to be drawn off. We will keep him on Lovenox and stop his warfarin. Once his INR is down below 1.5, we can get a thoracentesis. We will then start his warfarin back and bridge him until his INR is therapeutic. - Time Time Spent with patient: 15-24 minutes
[2019-01-03 04:55] LABS: HEMATOCRIT 39.4 % (37.9-51.0); HEMOGLOBIN 13.3 g/dL (13.5-17.0); MEAN CORPUSCULAR HEMOGLOBIN 28.6 pg (27.0-33.4); MEAN CORPUSCULAR HGB CONC 33.7 g/dL (32.0-36.0); MEAN CORPUSCULAR VOLUME 85 fl (80-97); PLATELET COUNT 345 10^3/uL (150-450); RED BLOOD COUNT 4.64 10^6/uL (4.35-5.55); RED CELL DISTRIBUTION WIDTH 14.8 % (11.5-14.0); WHITE BLOOD COUNT 8.6 10^3/uL (4.0-10.5)
[2019-01-03] MEDS: LIDOCAINE 5% (700 MG) TRANSDERMAL ADH..PATCH TP SCH (09:34)
[2019-01-03] MEDS: DOCUSATE SODIUM 100 MG CAPSULE PO SCH ×2 (09:35→18:03)
[2019-01-03] MEDS: POLYETHYLENE GLYCOL 3350 POWDER 17 GM/1 PACKET PO SCH (09:36)
[2019-01-03] MEDS: FLUTICASONE/UMECLIDIN/VILANTER 100-62.5-25 MCG/DOSE IH SCH (09:38)
[2019-01-03] MEDS: METOPROLOL TARTRATE 100 MG TABLET PO SCH ×2 (09:38→21:12)
[2019-01-03] MEDS: ALLOPURINOL 300 MG TABLET PO SCH ×2 (09:38→18:05)
[2019-01-03] MEDS: ENOXAPARIN SODIUM INJ 120 MG/0.8 ML DISP.SYRIN SUBCUT SCH ×2 (09:39→21:11)
[2019-01-03] MEDS: FAMOTIDINE 20 MG TABLET PO SCH ×2 (09:39→21:12)
--- NOTE | 2019-01-03 18:52 | PDOC PROGRESS REPORT ---
Subjective Progress Note for:: 01/03/19 Subjective:: No adverse events overnight. No new complaints. He is ambulating in the room without problems. No bleeding. No shortness of breath. Reason For Visit: ACUTE PULMONARY EMBOLUS WITH INFARCTION Physical Exam Vital Signs: Temp Pulse Resp BP Pulse Ox 99.3 F 86 16 124/69 98 01/03/19 15:26 01/03/19 15:26 01/03/19 15:26 01/03/19 15:26 01/03/19 15:26 Intake & Output 01/02/19 01/03/19 01/04/19 06:59 06:59 06:59 Intake Total 1416 1260 1200 Balance 1416 1260 1200 Weight 107.5 kg 107.4 kg General appearance: PRESENT: no acute distress, cooperative, disheveled, morbidly obese Respiratory exam: PRESENT: decreased breath sounds - Left lower lobe, symmetrical, unlabored. ABSENT: accessory muscle use, chest wall tenderness, crackles, prolonged expiratory phas, rhonchi, tachypnea, wheezes Cardiovascular exam: PRESENT: RRR, +S1, +S2 Pulses: PRESENT: normal carotid pulses Vascular exam: PRESENT: normal capillary refill GI/Abdominal exam: PRESENT: normal bowel sounds, soft. ABSENT: distended, guarding, rebound, tenderness Extremities exam: ABSENT: clubbing, pedal edema Musculoskeletal exam: PRESENT: normal inspection. ABSENT: deformity Neurological exam: PRESENT: alert, awake, oriented to person, oriented to place, oriented to time, oriented to situation Psychiatric exam: PRESENT: anxious, normal mood Skin exam: PRESENT: dry, warm Results Laboratory Results: 01/03/19 04:28 12/31/18 05:45 01/03/19 04:28 WBC 8.6 RBC 4.64 Hgb 13.3 L Hct 39.4 MCV 85 MCH 28.6 MCHC 33.7 RDW 14.8 H Plt Count 345 12/23/18 12/23/18 19:50 23:20 Troponin I 0.063 0.065 NT-Pro-B Natriuret Pep 130 H Impressions: Chest/Abdomen CTA 12/23/18 20:54 IMPRESSION: Findings compatible acute pulmonary embolism within the left lower lobe posterior basilar segmental pulmonary artery. No evidence of right heart strain. Small left pleural effusion. Superimposed bibasilar consolidative opacity is mostly bandlike, likely indicating atelectasis/scar. However, there may be a component of pulmonary infarction about the left lower lobe. TECHNICAL DOCUMENTATION: Quality ID # 436: Final reports with documentation of one or more dose reduction techniques (e.g., Automated exposure control, adjustment of the mA and/or kV according to patient size, use of iterative reconstruction technique) copyright 2011 [employer]- All Rights Reserved Chest CT 12/30/18 00:00 IMPRESSION: Since the prior CT exam 12/23/2018 which demonstrated left lower lobe pulmonary emboli, patient has developed near complete collapse of the left lower lobe, partial collapse of the lingula, and a small left pleural effusion Chest X-Ray 01/01/19 00:00 IMPRESSION: Moderate left effusion. Left basilar atelectasis. Assessment and Plan - Diagnosis (1) Acute respiratory failure with hypoxia Is this a current diagnosis for this admission?: Yes Plan: Resolved (2) Morbid obesity with BMI of 40.0-44.9, adult Is this a current diagnosis for this admission?: Yes Plan: Strongly encourage smoking cessation and lifestyle modification (3) Obstructive sleep apnea of adult Is this a current diagnosis for this admission?: Yes Plan: Encouraged that he follow-up with primary care provider see that he get set up with a sleep study. He said he is in the process of getting his insurance approved. (4) Pulmonary embolus with infarction Is this a current diagnosis for this admission?: Yes Plan: We are having him continue Lovenox and stopping his Coumadin so that his INR will come down so that we can get a thoracentesis. We will then re-bridge him on Lovenox until his INR level comes back up to the therapeutic range on Coumadin. (5) Pleural effusion, left Is this a current diagnosis for this admission?: Yes Plan: Spoke with Dr. Ann, and he agreed that that fluid needs to be drawn off. We will keep him on Lovenox and stop his warfarin. Once his INR is down below 1.5, we can get a thoracentesis. We will then start his warfarin back and bridge him until his INR is therapeutic. - Time Time Spent with patient: 15-24 minutes
[2019-01-04 06:38] LABS: INTERNATIONAL RATION (INR) 2.76; PROTHROMBIN TIME 30.5 SEC (11.4-15.4)
[2019-01-04] MEDS: ALLOPURINOL 300 MG TABLET PO SCH ×2 (10:05→17:40)
[2019-01-04] MEDS: METOPROLOL TARTRATE 100 MG TABLET PO SCH ×2 (10:06→21:56)
[2019-01-04] MEDS: FAMOTIDINE 20 MG TABLET PO SCH ×2 (10:06→21:56)
[2019-01-04] MEDS: FLUTICASONE/UMECLIDIN/VILANTER 100-62.5-25 MCG/DOSE IH SCH (10:07)
[2019-01-04] MEDS: DOCUSATE SODIUM 100 MG CAPSULE PO SCH ×2 (10:08→17:40)
[2019-01-04] MEDS: POLYETHYLENE GLYCOL 3350 POWDER 17 GM/1 PACKET PO SCH (10:09)
[2019-01-04] MEDS: LIDOCAINE 5% (700 MG) TRANSDERMAL ADH..PATCH TP SCH (10:09)
[2019-01-04] MEDS: ENOXAPARIN SODIUM INJ 120 MG/0.8 ML DISP.SYRIN SUBCUT SCH ×2 (10:11→21:55)
--- NOTE | 2019-01-04 17:27 | PDOC PROGRESS REPORT ---
Subjective Progress Note for:: 01/04/19 Subjective:: No adverse events overnight. No new complaints. Vital signs been stable. Eating and drinking without difficulty. No trouble breathing. Reason For Visit: ACUTE PULMONARY EMBOLUS WITH INFARCTION Physical Exam Vital Signs: Temp Pulse Resp BP Pulse Ox 98.3 F 88 21 H 134/82 H 97 01/04/19 04:00 01/04/19 14:00 01/04/19 04:00 01/04/19 04:00 01/04/19 04:00 Intake & Output 01/03/19 01/04/19 01/05/19 06:59 06:59 06:59 Intake Total 1260 1200 1000 Balance 1260 1200 1000 Weight 107.4 kg 107.4 kg General appearance: PRESENT: no acute distress, cooperative, disheveled, morbidly obese Respiratory exam: PRESENT: decreased breath sounds - Left lower lobe, symmetrical, unlabored. ABSENT: accessory muscle use, chest wall tenderness, crackles, prolonged expiratory phas, rhonchi, tachypnea, wheezes Cardiovascular exam: PRESENT: RRR, +S1, +S2 Pulses: PRESENT: normal carotid pulses Vascular exam: PRESENT: normal capillary refill GI/Abdominal exam: PRESENT: normal bowel sounds, soft. ABSENT: distended, guarding, rebound, tenderness Extremities exam: ABSENT: clubbing, pedal edema Musculoskeletal exam: PRESENT: normal inspection. ABSENT: deformity Neurological exam: PRESENT: alert, awake, oriented to person, oriented to place, oriented to time, oriented to situation Psychiatric exam: PRESENT: anxious, normal mood Skin exam: PRESENT: dry, warm Results Laboratory Results: 01/03/19 04:28 12/31/18 05:45 12/23/18 12/23/18 19:50 23:20 Troponin I 0.063 0.065 NT-Pro-B Natriuret Pep 130 H Impressions: Chest/Abdomen CTA 12/23/18 20:54 IMPRESSION: Findings compatible acute pulmonary embolism within the left lower lobe posterior basilar segmental pulmonary artery. No evidence of right heart strain. Small left pleural effusion. Superimposed bibasilar consolidative opacity is mostly bandlike, likely indicating atelectasis/scar. However, there may be a component of pulmonary infarction about the left lower lobe. TECHNICAL DOCUMENTATION: Quality ID # [id number]: Final reports with documentation of one or more dose reduction techniques (e.g., Automated exposure control, adjustment of the mA and/or kV according to patient size, use of iterative reconstruction technique) copyright 2011 [employer]- All Rights Reserved Chest CT 12/30/18 00:00 IMPRESSION: Since the prior CT exam 12/23/2018 which demonstrated left lower lobe pulmonary emboli, patient has developed near complete collapse of the left lower lobe, partial collapse of the lingula, and a small left pleural effusion Chest X-Ray 01/01/19 00:00 IMPRESSION: Moderate left effusion. Left basilar atelectasis. Assessment and Plan - Diagnosis (1) Acute respiratory failure with hypoxia Is this a current diagnosis for this admission?: Yes Plan: Resolved (2) Morbid obesity with BMI of 40.0-44.9, adult Is this a current diagnosis for this admission?: Yes Plan: Strongly encourage smoking cessation and lifestyle modification (3) Obstructive sleep apnea of adult Is this a current diagnosis for this admission?: Yes Plan: Encouraged that he follow-up with primary care provider see that he get set up with a sleep study. He said he is in the process of getting his insurance approved. (4) Pulmonary embolus with infarction Is this a current diagnosis for this admission?: Yes Plan: We are having him continue Lovenox and stopping his Coumadin so that his INR will come down so that we can get a thoracentesis. We will then re-bridge him on Lovenox until his INR level comes back up to the therapeutic range on Coumadin. (5) Pleural effusion, left Is this a current diagnosis for this admission?: Yes Plan: Spoke with Dr. Ann, and he agreed that that fluid needs to be drawn off. We will keep him on Lovenox and stop his warfarin. Once his INR is down below 1.5, we can get a thoracentesis. We will then start his warfarin back and bridge him until his INR is therapeutic. - Time Time Spent with patient: 15-24 minutes
[2019-01-05 05:19] LABS: INTERNATIONAL RATION (INR) 2.43; PROTHROMBIN TIME 27.6 SEC (11.4-15.4)
[2019-01-05] MEDS: LIDOCAINE 5% (700 MG) TRANSDERMAL ADH..PATCH TP SCH (09:51)
[2019-01-05] MEDS: POLYETHYLENE GLYCOL 3350 POWDER 17 GM/1 PACKET PO SCH (09:52)
[2019-01-05] MEDS: DOCUSATE SODIUM 100 MG CAPSULE PO SCH ×2 (09:53→17:49)
[2019-01-05] MEDS: METOPROLOL TARTRATE 100 MG TABLET PO SCH ×2 (09:53→21:19)
[2019-01-05] MEDS: FAMOTIDINE 20 MG TABLET PO SCH ×2 (09:54→21:19)
[2019-01-05] MEDS: ENOXAPARIN SODIUM INJ 120 MG/0.8 ML DISP.SYRIN SUBCUT SCH ×2 (09:55→21:19)
[2019-01-05] MEDS: FLUTICASONE/UMECLIDIN/VILANTER 100-62.5-25 MCG/DOSE IH SCH (11:30)
[2019-01-05] MEDS: ALLOPURINOL 300 MG TABLET PO SCH ×2 (11:31→17:51)
[2019-01-05 13:32] LABS: ANION GAP 14 (5-19); BLOOD UREA NITROGEN 18 mg/dL (7-20); CARBON DIOXIDE 21 mmol/L (22-30); CHLORIDE 107 mmol/L (98-107); GLUCOSE 133 mg/dL (75-110); POTASSIUM 4.4 mmol/L (3.6-5.0); SODIUM 141.6 mmol/L (137-145)
--- NOTE | 2019-01-05 16:30 | PDOC PROGRESS REPORT ---
Subjective Progress Note for:: 01/05/19 Subjective:: No adverse events overnight. He had an episode this morning where he felt like he had a cramp in his right side that resolved spontaneously. He is currently sitting in the chair on room air and looks comfortable. He said he is been getting up and walking without any trouble. Reason For Visit: ACUTE PULMONARY EMBOLUS WITH INFARCTION Physical Exam Vital Signs: Temp Pulse Resp BP Pulse Ox 97.6 F 80 18 110/80 99 01/05/19 11:13 01/05/19 11:13 01/05/19 11:13 01/05/19 11:13 01/05/19 11:13 Intake & Output 01/04/19 01/05/19 01/06/19 06:59 06:59 06:59 Intake Total 1200 3100 1000 Output Total 0 Balance 1200 3100 1000 Weight 107.4 kg 106.6 kg General appearance: PRESENT: no acute distress, cooperative, disheveled, morbidly obese Respiratory exam: PRESENT: decreased breath sounds - Left lower lobe, symmetrical, unlabored. ABSENT: accessory muscle use, chest wall tenderness, crackles, prolonged expiratory phas, rhonchi, tachypnea, wheezes Cardiovascular exam: PRESENT: RRR, +S1, +S2 Pulses: PRESENT: normal carotid pulses Vascular exam: PRESENT: normal capillary refill GI/Abdominal exam: PRESENT: normal bowel sounds, soft. ABSENT: distended, guarding, rebound, tenderness Extremities exam: ABSENT: clubbing, pedal edema Musculoskeletal exam: PRESENT: normal inspection. ABSENT: deformity Neurological exam: PRESENT: alert, awake, oriented to person, oriented to place, oriented to time, oriented to situation Psychiatric exam: PRESENT: anxious, normal mood Skin exam: PRESENT: dry, warm Results Laboratory Results: 01/03/19 04:28 01/05/19 12:47 01/05/19 12:47 Sodium 141.6 Potassium 4.4 Chloride 107 Carbon Dioxide 21 L Anion Gap 14 BUN 18 Creatinine 0.89 Est GFR ( Amer) > 60 Est GFR (Non-Af Amer) > 60 Glucose 133 H Calcium 10.0 Magnesium 1.5 L 12/23/18 12/23/18 19:50 23:20 Troponin I 0.063 0.065 NT-Pro-B Natriuret Pep 130 H Impressions: Chest/Abdomen CTA 12/23/18 20:54 IMPRESSION: Findings compatible acute pulmonary embolism within the left lower lobe posterior basilar segmental pulmonary artery. No evidence of right heart strain. Small left pleural effusion. Superimposed bibasilar consolidative opacity is mostly bandlike, likely indicating atelectasis/scar. However, there may be a component of pulmonary infarction about the left lower lobe. TECHNICAL DOCUMENTATION: Quality ID # [id number]: Final reports with documentation of one or more dose reduction techniques (e.g., Automated exposure control, adjustment of the mA and/or kV according to patient size, use of iterative reconstruction technique) copyright 2011 [employer]- All Rights Reserved Chest CT 12/30/18 00:00 IMPRESSION: Since the prior CT exam 12/23/2018 which demonstrated left lower lobe pulmonary emboli, patient has developed near complete collapse of the left lower lobe, partial collapse of the lingula, and a small left pleural effusion Chest X-Ray 01/01/19 00:00 IMPRESSION: Moderate left effusion. Left basilar atelectasis. Assessment and Plan - Diagnosis (1) Acute respiratory failure with hypoxia Is this a current diagnosis for this admission?: Yes Plan: Resolved (2) Morbid obesity with BMI of 40.0-44.9, adult Is this a current diagnosis for this admission?: Yes Plan: Strongly encourage smoking cessation and lifestyle modification (3) Obstructive sleep apnea of adult Is this a current diagnosis for this admission?: Yes Plan: Encouraged that he follow-up with primary care provider see that he get set up with a sleep study. He said he is in the process of getting his insurance approved. (4) Pulmonary embolus with infarction Is this a current diagnosis for this admission?: Yes Plan: We are having him continue Lovenox and stopping his Coumadin so that his INR will come down so that we can get a thoracentesis. We will then re-bridge him on Lovenox until his INR level comes back up to the therapeutic range on Coumadin. (5) Pleural effusion, left Is this a current diagnosis for this admission?: Yes Plan: Spoke with Dr. Ann, and he agreed that that fluid needs to be drawn off. We will keep him on Lovenox and stop his warfarin. Once his INR is down below 1.5, we can get a thoracentesis. We will then start his warfarin back and bridge him until his INR is therapeutic. - Time Time Spent with patient: 15-24 minutes
[2019-01-06 06:59] LABS: APPEARANCE,URINE CLEAR; BILIRUBIN,URINE NEGATIVE (NEGATIVE); COLOR,URINE YELLOW; GLUCOSE, URINE NEGATIVE (NEGATIVE); KETONES,URINE NEGATIVE (NEGATIVE); LEUKOCYTE ESTERASE,URINE NEGATIVE (NEGATIVE); NITRITE,URINE NEGATIVE (NEGATIVE); PROTEIN,URINE NEGATIVE (NEGATIVE); URINE SPECIFIC GRAVITY 1.011; UROBILINOGEN,URINE NEGATIVE mg/dL (<2.0)
[2019-01-06 07:07] LABS: HEMOGLOBIN 13.4 g/dL (13.5-17.0); MEAN CORPUSCULAR HEMOGLOBIN 29.7 pg (27.0-33.4); MEAN CORPUSCULAR HGB CONC 34.5 g/dL (32.0-36.0); MEAN CORPUSCULAR VOLUME 86 fl (80-97); PLATELET COUNT 410 10^3/uL (150-450); RED BLOOD COUNT 4.53 10^6/uL (4.35-5.55); RED CELL DISTRIBUTION WIDTH 14.5 % (11.5-14.0); WHITE BLOOD COUNT 8.6 10^3/uL (4.0-10.5)
[2019-01-06 07:20] LABS: INTERNATIONAL RATION (INR) 1.98; PROTHROMBIN TIME 23.4 SEC (11.4-15.4)
[2019-01-06] MEDS: DOCUSATE SODIUM 100 MG CAPSULE PO SCH ×2 (09:17→17:02)
[2019-01-06] MEDS: POLYETHYLENE GLYCOL 3350 POWDER 17 GM/1 PACKET PO SCH (09:17)
[2019-01-06] MEDS: LIDOCAINE 5% (700 MG) TRANSDERMAL ADH..PATCH TP SCH (09:22)
[2019-01-06] MEDS: ALLOPURINOL 300 MG TABLET PO SCH ×2 (09:51→17:03)
[2019-01-06] MEDS: METOPROLOL TARTRATE 100 MG TABLET PO SCH ×2 (09:51→21:06)
[2019-01-06] MEDS: ENOXAPARIN SODIUM INJ 120 MG/0.8 ML DISP.SYRIN SUBCUT SCH ×2 (09:52→21:06)
[2019-01-06] MEDS: FAMOTIDINE 20 MG TABLET PO SCH ×2 (09:52→21:06)
[2019-01-06] MEDS: FLUTICASONE/UMECLIDIN/VILANTER 100-62.5-25 MCG/DOSE IH SCH (09:53)
[2019-01-06] MEDS ORDERED: ONDANSETRON HCL INJ/PF 4 MG/2 ML SDV IV PRN (10:30)
--- NOTE | 2019-01-06 16:58 | PDOC PROGRESS REPORT ---
Subjective Progress Note for:: 01/06/19 Subjective:: No adverse events overnight. No new complaints. Vital signs been stable. Eating and drinking without difficulty. He is been up ambulating without any trouble. No chest pain or shortness of breath. No hemoptysis. Reason For Visit: ACUTE PULMONARY EMBOLUS WITH INFARCTION Physical Exam Vital Signs: Temp Pulse Resp BP Pulse Ox 98.3 F 90 18 124/78 98 01/06/19 15:10 01/06/19 15:10 01/06/19 15:10 01/06/19 15:10 01/06/19 15:10 Intake & Output 01/05/19 01/06/19 01/07/19 06:59 06:59 06:59 Intake Total 3100 2840 560 Output Total 0 Balance 3100 2840 560 Weight 106.6 kg 106.5 kg General appearance: PRESENT: no acute distress, cooperative, disheveled, morbidly obese Respiratory exam: PRESENT: decreased breath sounds - Left lower lobe, symmetrical, unlabored. ABSENT: accessory muscle use, chest wall tenderness, crackles, prolonged expiratory phas, rhonchi, tachypnea, wheezes Cardiovascular exam: PRESENT: RRR, +S1, +S2 Pulses: PRESENT: normal carotid pulses Vascular exam: PRESENT: normal capillary refill GI/Abdominal exam: PRESENT: normal bowel sounds, soft. ABSENT: distended, guarding, rebound, tenderness Extremities exam: ABSENT: clubbing, pedal edema Musculoskeletal exam: PRESENT: normal inspection. ABSENT: deformity Neurological exam: PRESENT: alert, awake, oriented to person, oriented to place, oriented to time, oriented to situation Psychiatric exam: PRESENT: anxious, normal mood Skin exam: PRESENT: dry, warm Results Laboratory Results: 01/06/19 06:05 01/05/19 12:47 01/06/19 01/06/19 01/06/19 06:05 06:15 06:30 WBC 8.6 RBC 4.53 Hgb 13.4 L Hct 39.0 MCV 86 MCH 29.7 MCHC 34.5 RDW 14.5 H Plt Count 410 Urine Color YELLOW Urine Appearance CLEAR Urine pH 5.0 Ur Specific [place] 1.011 Urine Protein NEGATIVE Urine Glucose (UA) NEGATIVE Urine Ketones NEGATIVE Urine Blood SMALL H Urine Nitrite NEGATIVE Ur Leukocyte Esterase NEGATIVE Urine WBC (Auto) 4 Urine RBC (Auto) 1 Stool Occult Blood NEGATIVE 12/23/18 12/23/18 19:50 23:20 Troponin I 0.063 0.065 NT-Pro-B Natriuret Pep 130 H Impressions: Chest/Abdomen CTA 12/23/18 20:54 IMPRESSION: Findings compatible acute pulmonary embolism within the left lower lobe posterior basilar segmental pulmonary artery. No evidence of right heart strain. Small left pleural effusion. Superimposed bibasilar consolidative opacity is mostly bandlike, likely indicating atelectasis/scar. However, there may be a component of pulmonary infarction about the left lower lobe. TECHNICAL DOCUMENTATION: Quality ID # 436: Final reports with documentation of one or more dose reduction techniques (e.g., Automated exposure control, adjustment of the mA and/or kV according to patient size, use of iterative reconstruction technique) copyright 2011 [employer]- All Rights Reserved Chest CT 12/30/18 00:00 IMPRESSION: Since the prior CT exam 12/23/2018 which demonstrated left lower lobe pulmonary emboli, patient has developed near complete collapse of the left lower lobe, partial collapse of the lingula, and a small left pleural effusion Chest X-Ray 01/01/19 00:00 IMPRESSION: Moderate left effusion. Left basilar atelectasis. Assessment and Plan - Diagnosis (1) Acute respiratory failure with hypoxia Is this a current diagnosis for this admission?: Yes Plan: Resolved (2) Morbid obesity with BMI of 40.0-44.9, adult Is this a current diagnosis for this admission?: Yes Plan: Strongly encourage smoking cessation and lifestyle modification (3) Obstructive sleep apnea of adult Is this a current diagnosis for this admission?: Yes Plan: Encouraged that he follow-up with primary care provider see that he get set up with a sleep study. He said he is in the process of getting his insurance approved. (4) Pulmonary embolus with infarction Is this a current diagnosis for this admission?: Yes Plan: We are having him continue Lovenox and stopping his Coumadin so that his INR will come down so that we can get a thoracentesis. We will then re-bridge him on Lovenox until his INR level comes back up to the therapeutic range on Coumadin. He is down below 2 today. His INR may be low enough tomorrow that we can order the thoracentesis. (5) Pleural effusion, left Is this a current diagnosis for this admission?: Yes Plan: Spoke with Dr. Ann, and he agreed that that fluid needs to be drawn off. We will keep him on Lovenox and stop his warfarin. Once his INR is down below 1.5, we can get a thoracentesis. We will then start his warfarin back and bridge him until his INR is therapeutic. He is below 2 today, so his INR may be low enough tomorrow that we can order a thoracentesis. - Time Time Spent with patient: 15-24 minutes
[2019-01-06] MEDS: PHARMACY COMMUNICATION ORDER MC SCH (21:07)
[2019-01-07 06:26] LABS: HEMATOCRIT 40.2 % (37.9-51.0); HEMOGLOBIN 13.8 g/dL (13.5-17.0); MEAN CORPUSCULAR HEMOGLOBIN 28.9 pg (27.0-33.4); MEAN CORPUSCULAR HGB CONC 34.3 g/dL (32.0-36.0); MEAN CORPUSCULAR VOLUME 85 fl (80-97); PLATELET COUNT 374 10^3/uL (150-450); RED BLOOD COUNT 4.76 10^6/uL (4.35-5.55); RED CELL DISTRIBUTION WIDTH 14.7 % (11.5-14.0); WHITE BLOOD COUNT 7.3 10^3/uL (4.0-10.5)
[2019-01-07 06:34] LABS: INTERNATIONAL RATION (INR) 1.65; PROTHROMBIN TIME 20.4 SEC (11.4-15.4)
[2019-01-07] MEDS ORDERED: OXYCODONE-ACETAMINOPHEN 5-325 MG TABLET PO PRN (09:35)
[2019-01-07] MEDS: FAMOTIDINE 20 MG TABLET PO SCH ×2 (10:15→21:18)
[2019-01-07] MEDS: METOPROLOL TARTRATE 100 MG TABLET PO SCH ×2 (10:17→21:18)
[2019-01-07] MEDS: DOCUSATE SODIUM 100 MG CAPSULE PO SCH ×2 (10:17→18:51)
[2019-01-07] MEDS: ALLOPURINOL 300 MG TABLET PO SCH ×2 (10:17→18:57)
[2019-01-07] MEDS: POLYETHYLENE GLYCOL 3350 POWDER 17 GM/1 PACKET PO SCH (10:19)
[2019-01-07] MEDS: FLUTICASONE/UMECLIDIN/VILANTER 100-62.5-25 MCG/DOSE IH SCH (10:19)
[2019-01-07] MEDS: LIDOCAINE 5% (700 MG) TRANSDERMAL ADH..PATCH TP SCH (10:20)
[2019-01-07] MEDS: ENOXAPARIN SODIUM INJ 120 MG/0.8 ML DISP.SYRIN SUBCUT SCH ×2 (18:50→21:19)
[2019-01-07] MEDS ORDERED: DIPHENHYDRAMINE HCL 50 MG/ML VIAL ONE (18:53)
--- NOTE | 2019-01-07 19:04 | PDOC PROGRESS REPORT ---
Subjective Progress Note for:: 01/07/19 Subjective:: This is 43 years old black male patient past medical history of hypertension, hyperlipidemia and obesity presented with chief complaint of sudden onset chest pain. CT of the chest revealed left lower lobe acute pulmonary embolism and pleural effusion. Patient has been managed with Coumadin and currently the Coumadin is on hold to do ultrasound-guided paracentesis. Morning I seen patient sitting recliner. He complains of right-sided chest pain Reason For Visit: ACUTE PULMONARY EMBOLUS WITH INFARCTION Physical Exam Vital Signs: Temp Pulse Resp BP Pulse Ox 98.1 F 80 17 132/74 H 97 01/07/19 15:14 01/07/19 15:14 01/07/19 15:14 01/07/19 15:14 01/07/19 15:14 Intake & Output 01/06/19 01/07/19 01/08/19 06:59 06:59 06:59 Intake Total 2840 680 1386 Balance 2840 680 1386 Weight 106.5 kg 105 kg General appearance: PRESENT: no acute distress, well-developed, well-nourished Head exam: PRESENT: atraumatic, normocephalic Eye exam: PRESENT: conjunctiva pink, EOMI, PERRLA. ABSENT: scleral icterus Ear exam: PRESENT: normal external ear exam Mouth exam: PRESENT: moist, tongue midline Neck exam: ABSENT: carotid bruit, JVD, lymphadenopathy, thyromegaly Respiratory exam: PRESENT: decreased breath sounds Cardiovascular exam: PRESENT: RRR. ABSENT: diastolic murmur, rubs, systolic murmur Pulses: PRESENT: normal dorsalis pedis pul Vascular exam: PRESENT: normal capillary refill GI/Abdominal exam: PRESENT: normal bowel sounds, soft. ABSENT: distended, gua rding, mass, organolmegaly, rebound, tenderness Rectal exam: PRESENT: deferred Extremities exam: PRESENT: full ROM. ABSENT: calf tenderness, clubbing, pedal edema Neurological exam: PRESENT: alert, awake, oriented to person, oriented to place, oriented to time, oriented to situation, CN II-XII grossly intact. ABSENT: katie r sensory deficit Psychiatric exam: PRESENT: appropriate affect, normal mood. ABSENT: homicidal ideation, suicidal ideation Skin exam: PRESENT: dry, intact, warm. ABSENT: cyanosis, rash Results Laboratory Results: 01/07/19 06:01 01/05/19 12:47 01/07/19 06:01 WBC 7.3 RBC 4.76 Hgb 13.8 Hct 40.2 MCV 85 MCH 28.9 MCHC 34.3 RDW 14.7 H Plt Count 374 12/23/18 12/23/18 19:50 23:20 Troponin I 0.063 0.065 NT-Pro-B Natriuret Pep 130 H Impressions: Chest/Abdomen CTA 12/23/18 20:54 IMPRESSION: Findings compatible acute pulmonary embolism within the left lower lobe posterior basilar segmental pulmonary artery. No evidence of right heart strain. Small left pleural effusion. Superimposed bibasilar consolidative opacity is mostly bandlike, likely indicating atelectasis/scar. However, there may be a component of pulmonary infarction about the left lower lobe. TECHNICAL DOCUMENTATION: Quality ID # 436: Final reports with documentation of one or more dose reduction techniques (e.g., Automated exposure control, adjustment of the mA and/or kV according to patient size, use of iterative reconstruction technique) copyright 2011 [employer]- All Rights Reserved Chest CT 12/30/18 00:00 IMPRESSION: Since the prior CT exam 12/23/2018 which demonstrated left lower lobe pulmonary emboli, patient has developed near complete collapse of the left lower lobe, partial collapse of the lingula, and a small left pleural effusion Chest X-Ray 01/01/19 00:00 IMPRESSION: Moderate left effusion. Left basilar atelectasis. Assessment and Plan - Diagnosis (1) Acute respiratory failure with hypoxia Is this a current diagnosis for this admission?: Yes Plan: His shortness of breath is subsiding (2) Pulmonary embolus with infarction Is this a current diagnosis for this admission?: Yes Plan: Continue Lovenox (3) Obesity (BMI 30-39.9) Is this a current diagnosis for this admission?: Yes Plan: *Modification advised (4) Left pleural effusion Is this a current diagnosis for this admission?: Yes Plan: Patient scheduled for ultrasound-guided thoracentesis when his INR is less than 1.5. (5) Obstructive sleep apnea Is this a current diagnosis for this admission?: Yes Plan: Current CPAP.
[2019-01-07] MEDS: PHARMACY COMMUNICATION ORDER MC SCH (21:19)
[2019-01-08 06:07] LABS: HEMATOCRIT 39.5 % (37.9-51.0); HEMOGLOBIN 13.5 g/dL (13.5-17.0); MEAN CORPUSCULAR HEMOGLOBIN 29.1 pg (27.0-33.4); MEAN CORPUSCULAR HGB CONC 34.1 g/dL (32.0-36.0); MEAN CORPUSCULAR VOLUME 85 fl (80-97); PLATELET COUNT 387 10^3/uL (150-450); RED BLOOD COUNT 4.63 10^6/uL (4.35-5.55); WHITE BLOOD COUNT 6.3 10^3/uL (4.0-10.5)
[2019-01-08 06:12] LABS: INTERNATIONAL RATION (INR) 1.34; PROTHROMBIN TIME 17.3 SEC (11.4-15.4)
[2019-01-08] MEDS: ENOXAPARIN SODIUM INJ 120 MG/0.8 ML DISP.SYRIN SUBCUT SCH (09:40)
[2019-01-08] MEDS: LIDOCAINE 5% (700 MG) TRANSDERMAL ADH..PATCH TP SCH (09:55)
[2019-01-08] MEDS: POLYETHYLENE GLYCOL 3350 POWDER 17 GM/1 PACKET PO SCH (10:10)
[2019-01-08] MEDS: DOCUSATE SODIUM 100 MG CAPSULE PO SCH (10:10)
[2019-01-08] MEDS: FAMOTIDINE 20 MG TABLET PO SCH (10:21)
[2019-01-08] MEDS: ALLOPURINOL 300 MG TABLET PO SCH (10:21)
[2019-01-08] MEDS: FLUTICASONE/UMECLIDIN/VILANTER 100-62.5-25 MCG/DOSE IH SCH (10:22)
[2019-01-08] MEDS: METOPROLOL TARTRATE 100 MG TABLET PO SCH (10:22)
--- NOTE | 2019-01-08 11:57 | RADIOLOGY REPORT (SQ) ---
EXAM DESCRIPTION: U/S CHEST COMPLETED DATE/TIME: 01/08/2019 11:46 am REASON FOR STUDY: pleural effusion COMPARISON: 01/01/2019. LIMITATIONS: None. PROCEDURE: Procedure, risks, benefit, and alternative explained to patient who then gave written con sent. Limited ultrasound evaluation of the left chest was performed demonstrating a small pleural ef fusion. Patient reported no shortness of breath. Findings were discussed with Dr. Hernandez and decision was made to abort the procedure at this time . The patient was returned to his room. Images acquired during the procedure were stored on PACS. FINDINGS: Procedure aborted. IMPRESSION: Limited ultrasound evaluation of the left chest was performed demonstrating a small ple ural effusion. Patient reported no shortness of breath. Findings were discussed with Dr. Hernandez and decision was made to abort the procedure at this time . COMMENT: Patient medication list reviewed: Yes- Quality ID# 130:Eligible professional attests to doc umenting in the medical record they obtained, updated, or reviewed the patient's current medications. TECHNICAL DOCUMENTATION: JOB ID: [id number] [employer]- All Rights Reserved Reading location - IP/workstation name: [email or web address]
--- NOTE | 2019-01-08 11:57 | PDOC DISCHARGE SUMMARY ---
General - Admit/Disc Date/PCP Admission Date/Primary Care Provider: 12/24/18 00:48 Discharge Date: 01/08/19 - Discharge Diagnosis (1) Acute respiratory failure with hypoxia Is this a current diagnosis for this admission?: Yes (2) Pulmonary embolus with infarction Is this a current diagnosis for this admission?: Yes (3) Obesity (BMI 30-39.9) Is this a current diagnosis for this admission?: Yes (4) Left pleural effusion Is this a current diagnosis for this admission?: Yes (5) Obstructive sleep apnea Is this a current diagnosis for this admission?: Yes - Additional Information Resuscitation Status: Full Code Home Medications: Allopurinol [Zyloprim 300 mg Tablet] 300 mg PO BID 12/24/18 Metformin HCl [Glucophage 500 mg Tablet] 500 mg PO BID 12/24/18 History of Present Illness History of Present Illness: NORBERTO CRISOSTOMO is a 43 year old male who presented to the emergency room with acute chest pain. He admits that while he was having dinner this evening he suddenly developed a sharp, constant, moderately severe stabbing pain in the left side of his anterior lateral chest without radiation. The pain was accompanied by the sudden onset of dyspnea both at rest and increased by exertion. Patient denies prior similar episodes and has not identified any aggravating or ameliorating factors for his acute onset dyspnea. In the emergency room the patient was found to have an acute left lower lobe pulmonary embolus with infarct by CTA evaluation. With these findings the patient was admitted to hospital for further evaluation and treatment. Hospital Course Hospital Course: This is 43 years old black male patient past medical history of hypertension, hyperlipidemia and obesity presented with chief complaint of sudden onset chest pain. CT of the chest revealed left lower lobe acute pulmonary embolism and pleural effusion. Patient has been managed with Coumadin and currently the Coumadin is on hold to do ultrasound-guided paracentesis. This morning patient is taken to the radiology need for ultrasound-guided thoracentesis but the ultrasound revealed minimal left pleural effusion. Most probably the pleural effusion is reactive to his acute pulmonary embolism which has been reabsorbed gradually. Patient seen and examined at bedside. He is awake alert oriented. No chest pain or shortness of breath. I will send him home with Coumadin and follow-up with his primary care physician. He will be provided with literature regarding the Coumadin treatment. Physical Exam Vital Signs: Temp Pulse Resp BP Pulse Ox 97.9 F 86 18 124/72 97 01/08/19 07:25 01/08/19 07:25 01/08/19 07:25 01/08/19 07:25 01/08/19 07:25 Intake & Output 01/07/19 01/08/19 01/09/19 06:59 06:59 06:59 Intake Total 680 1386 Balance 680 1386 Weight 105 kg 105.6 kg General appearance: PRESENT: no acute distress Head exam: PRESENT: atraumatic Eye exam: PRESENT: conjunctiva pink Neck exam: ABSENT: carotid bruit, JVD, lymphadenopathy, thyromegaly Respiratory exam: PRESENT: clear to auscultation nitin, crackles. ABSENT: rales, rhonchi, wheezes Cardiovascular exam: PRESENT: RRR. ABSENT: diastolic murmur, rubs, systolic murmur GI/Abdominal exam: PRESENT: normal bowel sounds, soft. ABSENT: distended, guard ing, mass, organolmegaly, rebound, tenderness Neurological exam: PRESENT: alert, awake, oriented to person, oriented to place, oriented to time, oriented to situation Results Laboratory Results: 01/08/19 05:40 01/05/19 12:47 01/08/19 05:40 WBC 6.3 RBC 4.63 Hgb 13.5 Hct 39.5 MCV 85 MCH 29.1 MCHC 34.1 RDW 15.0 H Plt Count 387 12/23/18 12/23/18 19:50 23:20 Troponin I 0.063 0.065 NT-Pro-B Natriuret Pep 130 H Impressions: Chest/Abdomen CTA 12/23/18 20:54 IMPRESSION: Findings compatible acute pulmonary embolism within the left lower lobe posterior basilar segmental pulmonary artery. No evidence of right heart strain. Small left pleural effusion. Superimposed bibasilar consolidative opacity is mostly bandlike, likely indicating atelectasis/scar. However, there may be a component of pulmonary infarction about the left lower lobe. TECHNICAL DOCUMENTATION: Quality ID # 436: Final reports with documentation of one or more dose reduction techniques (e.g., Automated exposure control, adjustment of the mA and/or kV according to patient size, use of iterative reconstruction technique) copyright 2011 [employer]- All Rights Reserved Chest CT 12/30/18 00:00 IMPRESSION: Since the prior CT exam 12/23/2018 which demonstrated left lower lobe pulmonary emboli, patient has developed near complete collapse of the left lower lobe, partial collapse of the lingula, and a small left pleural effusion Chest X-Ray 01/01/19 00:00 IMPRESSION: Moderate left effusion. Left basilar atelectasis. Qualifiers - * PATIENT BEING DISCHARGED WITH ANY OF THE FOLLOWING DIAGNOSIS: VTE (PE or DVT) VTE patient discharged on overlapping Therapy?: Yes Stroke Pt being discharged on Anti-thrombolytic therapy?: No Reason(s) for not prescribing Anti-thrombolytic therapy:: Not indicated Stroke Pt being discharged on Anti-coagulation therapy?: No Reason(s) for not prescribing Anti-coagulation therapy:: Not indicated Stroke Pt being discharged on Statins?: No Reason(s) for not prescribing Statins therapy:: Not indicated IN Pt being discharged on Aspirin therapy?: No Reason(s) for not prescribing Aspirin therapy:: Not indicated IN Pt being discharged on Statins?: No Reason(s) for not prescribing Statin therapy:: Not indicated IN Pt discharged ACEI/ARBS?: No Reason(s) for not prescribing ACEI/ARBS:: Not indicated Acute Heart Failure Is this a Heart Failure Patient?: No
[2019-01-08 13:08] VITALS: BP 134/82
== END 2019-01-08 13:28 | disposition home or self-care (01) | DRG 175 ==
LOC: ER 19:06 → EH 12-24 00:48 → 3S 12-24 02:35
PROVIDERS: ADMIT Emergency Medicine; ATTEND Emergency Medicine
PROC: 5A09357 Assistance with Respiratory Ventilation, Less than 24 Consecutive Hours, Continuous Positive Airway Pressure (ICD-10-PCS; principal; 2018-12-24)
DX: I26.99 Other pulmonary embolism without acute cor pulmonale (principal); J96.01 Acute respiratory failure with hypoxia; I50.31 Acute diastolic (congestive) heart failure; J90 Pleural effusion, not elsewhere classified; I11.0 Hypertensive heart disease with heart failure; E66.01 Morbid (severe) obesity due to excess calories; G47.33 Obstructive sleep apnea (adult) (pediatric); E78.5 Hyperlipidemia, unspecified; J44.9 Chronic obstructive pulmonary disease, unspecified; E11.9 Type 2 diabetes mellitus without complications; M10.9 Gout, unspecified; F32.9 Major depressive disorder, single episode, unspecified; F41.1 Generalized anxiety disorder; F17.200 Nicotine dependence, unspecified, uncomplicated; Z68.39 Body mass index [BMI] 39.0-39.9, adult; Z71.3 Dietary counseling and surveillance; Z79.84 Long term (current) use of oral hypoglycemic drugs; Z79.01 Long term (current) use of anticoagulants; Z59.9 Problem related to housing and economic circumstances, unspecified; Z91.19 Patient's noncompliance with other medical treatment and regimen; Z83.3 Family history of diabetes mellitus; Z83.438 Family history of other disorder of lipoprotein metabolism and other lipidemia; Z82.49 Family history of ischemic heart disease and other diseases of the circulatory system
CPT/HCPCS: 36415; 71045; 71250; 71275; 76604; 80048; 80053; 80061; 81001; 81332; 82272; 82962; 83036; 83735; 83880; 84153; 84166; 84439; 84443; 84481; 84484; 85025; 85027; 85379; 85610; 86320; 93005; 93010; 93306; 94660; 96374; 96375; 99285; J1170; J1650; J2060; J2270; J3475; J3490; J7030; J7120; J7614

== ENCOUNTER → 2019-01-10 | Outpatient (CLI) | payer OTHER ==
[2019-01-10 11:04] LABS: INTERNATIONAL RATION (INR) 1.18; PROTHROMBIN TIME 15.6 SEC (11.4-15.4)
== END ==
LOC: LAB 10:35
PROVIDERS: ATTEND Internal Medicine
DX: I26.99 Other pulmonary embolism without acute cor pulmonale (principal)
CPT/HCPCS: 36415; 85610

== ENCOUNTER 2019-01-14 09:32 | Emergency (ER) | payer OTHER ==
--- NOTE | 2019-01-14 10:07 | ER Document Report ---
ED Medical Screen (RME) - General Chief Complaint: Chest Pain Stated Complaint: CHEST PAIN Time Seen by Provider: 01/14/19 10:00 TRAVEL OUTSIDE OF THE [place] IN LAST 30 DAYS: No - HPI Notes: 01/14/19 10:04 Patient is a 43-year-old male with a history of COPD, hypertension, diabetes who presents complaining of recurring chest pain and shortness of breath since discharge from the hospital few days ago. Patient was admitted for almost 2 weeks for acute PE with pleural effusion on the left side. Patient was going to have an ultrasound-guided paracentesis, but prior to the procedure they noticed that the pleural effusion has improved so they discharged him on Coumadin. Patient states that he was not able to afford the Coumadin so he has not been on any anticoagulation since then. Patient states that he continues to have right leg pain as well. Denies WARE, fever, neck pain, URI, Abd pain, dysuria, back pain, or rash. I have treated and performed a rapid initial assessment of this patient. A c omprehensive ED assessment and evaluation of the patient, analysis of test results and completion of medical decision making process will be conducted by additional ED providers. PHYSICAL EXAMINATION: GENERAL: Well-appearing, well-nourished and in no acute distress. A&Ox4. Answers questions appropriately. LUNGS: Breath sounds clear to auscultation bilaterally and equal. No wheezes rales or rhonchi. HEART: Regular rate and rhythm without murmurs, rubs, gallops. - Related Data Allergies/Adverse Reactions: No Known Allergies Allergy (Verified 01/14/19 10:00) Past Medical History - Past Medical History Cardiac Medical History: Reports: Hx Hypercholesterolemia, Hx Hypertension Denies: Hx Atrial Fibrillation, Hx Coronary Artery Disease, Hx DVT, Hx Heart Attack, Hx Pulmonary Embolism Pulmonary Medical History: Reports: Hx COPD, Hx Sleep Apnea Denies: Hx Asthma Neurological Medical History: Denies: Hx Seizures Endocrine Medical History: Reports: Hx Diabetes Mellitus Type 2. Denies: Hx Diabetes Mellitus Type 1, Hx Hyperthyroidism, Hx Hypothyroidism Renal/ Medical History: Denies: Hx Peritoneal Dialysis GI Medical History: Denies: Hx Cirrhosis, Hx Hepatitis Musculoskeltal Medical History: Denies Hx Arthritis, Reports Hx Gout Skin Medical History: Denies Hx Eczema, Denies Hx Psoriasis Psychiatric Medical History: Reports: Hx Anxiety, Hx Depression Infectious Medical History: Denies: Hx Hepatitis Past Surgical History: Reports: Hx Orthopedic Surgery - Rt knee - Immunizations Hx Diphtheria, Pertussis, Tetanus Vaccination: Yes Physical Exam - Vital signs Vitals: Temp Pulse Resp BP Pulse Ox 98.3 F 104 H 18 157/111 H 96 01/14/19 09:39 01/14/19 09:39 01/14/19 09:39 01/14/19 09:39 01/14/19 09:39 Course - Vital Signs Vital signs: Temp Pulse Resp BP Pulse Ox 98.3 F 104 H 18 157/111 H 96 01/14/19 09:39 01/14/19 09:39 01/14/19 09:39 01/14/19 09:39 01/14/19 09:39
[2019-01-14 10:58] LABS: ABSOLUTE BASOPHILS # (AUTO) 0.1 10^3/uL (0.0-0.2); ABSOLUTE EOSINOPHILS # (AUTO) 0.2 10^3/uL (0.0-0.6); ABSOLUTE LYMPHOCYTES (AUTO) 2.2 10^3/uL (0.5-4.7); ABSOLUTE MONOCYTES (AUTO) 0.5 10^3/uL (0.1-1.4); ABSOLUTE NEUT (AUTO) 5.5 10^3/uL (1.7-8.2); BASOPHILS % (AUTO) 1.1 % (0-2); HEMATOCRIT 41.5 % (37.9-51.0); LYMPHOCYTES % (AUTO) 25.5 % (13-45); MEAN CORPUSCULAR HEMOGLOBIN 28.6 pg (27.0-33.4); MEAN CORPUSCULAR HGB CONC 33.8 g/dL (32.0-36.0); MEAN CORPUSCULAR VOLUME 85 fl (80-97); MONOCYTES % (AUTO) 6.3 % (3-13); PLATELET COUNT 310 10^3/uL (150-450); RED CELL DISTRIBUTION WIDTH 14.3 % (11.5-14.0); SEGMENTED NEUTROPHILS % (AUTO) 65.1 % (42-78); TOTAL CELLS COUNTED % (AUTO) 100 %; WHITE BLOOD COUNT 8.5 10^3/uL (4.0-10.5)
[2019-01-14 11:07] LABS: INTERNATIONAL RATION (INR) 1.12
[2019-01-14 11:08] LABS: PARTIAL THROMBOPLASTIN TIME 32.6 SEC (23.5-35.8)
[2019-01-14 11:19] LABS: ALANINE AMINOTRANSFERASE 61 U/L (21-72); ALKALINE PHOSPHATASE 138 U/L (38-126); ANION GAP 12 (5-19); ASPARTATE AMINO TRANSFERASE 31 U/L (17-59); BILIRUBIN,DIRECT 0.3 mg/dL (0.0-0.4); BILIRUBIN,TOTAL 0.8 mg/dL (0.2-1.3); BLOOD UREA NITROGEN 11 mg/dL (7-20); CALCIUM 9.8 mg/dL (8.4-10.2); CARBON DIOXIDE 26 mmol/L (22-30); CHLORIDE 106 mmol/L (98-107); GLUCOSE 101 mg/dL (75-110); POTASSIUM 4.4 mmol/L (3.6-5.0); SODIUM 143.9 mmol/L (137-145); TOTAL PROTEIN 8.4 g/dL (6.3-8.2)
[2019-01-14 11:28] LABS: TROPONIN I 0.013 ng/mL
--- NOTE | 2019-01-14 12:00 | RADIOLOGY REPORT (SQ) ---
EXAM DESCRIPTION: CHEST 2 VIEWS COMPLETED DATE/TIME: 01/14/2019 11:30 am REASON FOR STUDY: SOB, recent pleural effusion COMPARISON: 01/01/2019. EXAM PARAMETERS: NUMBER OF VIEWS: two views TECHNIQUE: Digital Frontal and Lateral radiographic views of the chest acquired. RADIATION DOSE: NA LIMITATIONS: none FINDINGS: LUNGS AND PLEURA: Interval resolution of the left pleural effusion. Mild residual left b ase atelectasis/infiltrate. The right lung remains clear. No pneumothorax. MEDIASTINUM AND HILAR STRUCTURES: No masses or contour abnormalities. HEART AND VASCULAR STRUCTURES: Heart normal size. No evidence for failure. BONES: No acute findings. HARDWARE: None in the chest. OTHER: No other significant finding. IMPRESSION: 1. Interval resolution of the left pleural effusion since the prior study dated 01/02/20 19. Mild left base atelectasis/infiltrate. TECHNICAL DOCUMENTATION: JOB ID: [id number] [employer]- All Rights Reserved Reading location - IP/workstation name: [email or web address]
[2019-01-14] MEDS ORDERED: RIVAROXABAN 15 MG TABLET PO ONE (12:38)
--- NOTE | 2019-01-14 12:54 | EKG REPORT ---
SEVERITY:- BORDERLINE ECG - SINUS TACHYCARDIA VENTRICULAR PREMATURE COMPLEX BORDERLINE T ABNORMALITIES, INFERIOR LEADS : Confirmed by: Daniel Herndon MD 14-Jan-2019 12:54:20
--- NOTE | 2019-01-14 12:55 | RADIOLOGY REPORT (SQ) ---
EXAM DESCRIPTION: VENOUS BILATERAL LOWER COMPLETED DATE/TIME: 01/14/2019 12:44 pm REASON FOR STUDY: active PE, rt leg pain COMPARISON: None. TECHNIQUE: Dynamic and static valdes scale and color images acquired of both lower extremity venous sy stems. Selected spectral images acquired with additional compression and augmentation maneuvers. Imag es stored on PACS. LIMITATIONS: None. FINDINGS: RIGHT LEG COMMON FEMORAL AND FEMORAL: Normal phasicity, compression and augmentation. No visualized echogenic m aterial on valdes scale. No defects on color images. POPLITEAL: Normal compression and augmentation. No visualized echogenic material on valdes scale. No de fects on color images. CALF VESSELS: Normal compression and augmentation. No visualized echogenic material on valeds scale. No defects on color image. GSV AND SSV: Normal compression. No visualized echogenic material on valdes scale. No defects on color images. ANY DEEP VENOUS INSUFFICIENCY: Not evaluated. ANY EVIDENCE OF POPLITEAL CYST: No. OTHER: No other significant finding. LEFT LEG COMMON FEMORAL AND FEMORAL: Normal phasicity, compression and augmentation. No visualized echogenic m aterial on valdes scale. No defects on color images. POPLITEAL: Normal compression and augmentation. No visualized echogenic material on valdes scale. No de fects on color images. CALF VESSELS: Normal compression and augmentation. No visualized echogenic material on valdes scale. No defects on color images. GSV AND SSV: Normal compression. No visualized echogenic material on valdes scale. No defects on color images. ANY DEEP VENOUS INSUFFICIENCY: Not evaluated. ANY EVIDENCE POPLITEAL CYST: No. OTHER: No other significant finding. IMPRESSION: 1. NO EVIDENCE DVT OR SVT IN EITHER LEG. COMMENT: 1. The results of this examination were discussed with emergency department provider on 06/2019 at 12:48 hours. TECHNICAL DOCUMENTATION: JOB ID: [id number] [employer]- All Rights Reserved Reading location - IP/workstation name: [email or web address]
[2019-01-14 13:29] VITALS: BP 154/98
--- NOTE | 2019-01-14 18:50 | ER Document Report ---
Entered by TIM SLOAN SCRIBE 01/14/19 1119 Acting as scribe for:HERMELINDO CARLSON DO ED General - General Chief Complaint: Chest Pain Stated Complaint: CHEST PAIN Time Seen by Provider: 01/14/19 10:00 [facility] [Provider Group] - Follow up as needed Mode of Arrival: Ambulatory Information source: Patient Notes: Patient is a 43-year-old male with a history of COPD, hypertension, diabetes who presents complaining of recurring chest pain and shortness of breath as well as increasing right leg pain and swelling since discharge from the hospital few days ago. Patient was admitted for almost 2 weeks for acute PE with pleural effusion on the left side. Patient states he presented to his PCP today com plaining of left sided chest pain and RLE pain and swelling onset a few days ago. He describes his chest pain as a stabbing sensation that is exacerbated with deep breathing. He states he was prescribed Coumadin however he has not received the prescription due to not being able to afford it. TRAVEL OUTSIDE OF THE [place] IN LAST 30 DAYS: No - Related Data Allergies/Adverse Reactions: No Known Allergies Allergy (Verified 01/14/19 10:00) Past Medical History - General Information source: Patient - Social History Smoking Status: Former Smoker - Quit 2 years ago as of 2019 Frequency of alcohol use: None Drug Abuse: None Family History: DM, Hyperlipidemia, Hypertension, Thyroid Disfunction Patient has suicidal ideation: No Patient has homicidal ideation: No - Past Medical History Cardiac Medical History: Reports: Hx Hypercholesterolemia, Hx Hypertension Pulmonary Medical History: Reports: Hx COPD, Hx Sleep Apnea Endocrine Medical History: Reports: Hx Diabetes Mellitus Type 2 Musculoskeletal Medical History: Reports Hx Gout Psychiatric Medical History: Reports: Hx Anxiety, Hx Depression Past Surgical History: Reports: Hx Abdominal Surgery, Hx Orthopedic Surgery - Rt knee - Immunizations Hx Diphtheria, Pertussis, Tetanus Vaccination: Yes Review of Systems - Review of Systems Constitutional: No symptoms reported EENT: No symptoms reported Cardiovascular: Chest pain Respiratory: See HPI, Short of breath Gastrointestinal: No symptoms reported Genitourinary: No symptoms reported Male Genitourinary: No symptoms reported Musculoskeletal: See HPI Skin: No symptoms reported Hematologic/Lymphatic: No symptoms reported Neurological/Psychological: No symptoms reported -: Yes All other systems reviewed and negative Physical Exam - Vital signs Vitals: Temp Pulse Resp BP Pulse Ox 98.3 F 104 H 18 157/111 H 96 01/14/19 09:39 01/14/19 09:39 01/14/19 09:39 01/14/19 09:39 01/14/19 09:39 - Notes Notes: GENERAL: Alert, interacts well. No acute distress. HEAD: Normocephalic, atraumatic. EYES: Pupils equal, round, and reactive to light. Extraocular movements intact. ENT: Oral mucosa moist, tongue midline. NECK: Full range of motion. Supple. Trachea midline. LUNGS: Clear to auscultation bilaterally, no wheezes, rales, or rhonchi. No respiratory distress. HEART: Regular rate and rhythm. No murmurs, gallops, or rubs. ABDOMEN: Soft, non-tender. Non-distended. Bowel sounds present in all 4 quadra nts. No guarding, rigidity, or rebound. EXTREMITIES: Moves all 4 extremities spontaneously. Mild nonpitting edema to the right lower extremity. No tenderness to palpation. Radial and dorsalis ped is pulses 2/4 bilaterally. No cyanosis. NEUROLOGICAL: Alert and oriented x3. Normal speech. PSYCH: Normal affect, normal mood. SKIN: Warm, dry. Course - Re-evaluation Re-evalutation: 01/14/19 13:15 CBC unremarkable, INR subtherapeutic at 1.12 which is not surprising considering he has might not been taking his Coumadin for approximately a week, CMP grossly unremarkable only slightly elevated alkaline phosphatase at 138. Troponin negative at 0.013 despite ongoing chest pain for at least 2 days. proBNP unremarkable at 141, chest x-ray shows resolution of pleural effusion but there is some atelectasis. Advised patient to take deep breaths and prescribed incentive spirometer. Venous Doppler study of the right lower extremity does not reveal any DVT. Patient has only been mildly tachycardic, is not hypoxic or tachypneic. No evidence of worsening clot burden clinically, no indication for repeating a CTA of the chest. Patient has been started on Xarelto here, Alfredito Neves, the manager credit risk has found a coupon that we will provide him with a year supply of Xarelto. Patient has been started on Xarelto here and will be discharged home. 01/14/19 13:16 Patient's chest pain is pleuritic, exactly reproducible with a deep breath and is not there when he is holding his breath. This is likely due to inflammation of the pleural lining secondary to the PE. Patient will be given a burst of steroids, advised to avoid NSAIDs due to bleeding risk and discharged home. - Vital Signs Vital signs: Temp Pulse Resp BP Pulse Ox 98.3 F 104 H 17 154/98 H 96 01/14/19 09:39 01/14/19 09:39 01/14/19 13:02 01/14/19 13:02 01/14/19 13:02 - Laboratory Result Diagrams: 01/14/19 10:45 01/14/19 10:45 Laboratory results interpreted by me: 01/14/19 01/14/19 01/14/19 10:45 10:45 10:45 RDW 14.3 H Alkaline Phosphatase 138 H NT-Pro-B Natriuret Pep 141 H Total Protein 8.4 H - EKG Interpretation by Me Additional EKG results interpreted by me: 01/14/19 13:16 EKG shows sinus tachycardia at a rate of 107, 1 PVC, normal axis, normal intervals, no ST segment elevations or depressions, T wave inversions are noted in lead III and avF, these are only slightly worsened from prior EKG on 12/29/2018 per my interpretation. Discharge - Discharge Clinical Impression: Pleuritic chest pain, Obesity (BMI 30-39.9), Pulmonary embolus with infarction, Noncompliance w/medication treatment due to intermit use of medication Condition: Stable Disposition: HOME, SELF-CARE Additional Instructions: Please take the prednisone 2 tablets once a day for the next 5 days, this will help to decrease the swelling of the lining of your lungs which is what is causing your chest pain. This is coming as a side effect of having a blood clot in your lungs. Please take the Xarelto 15 mg twice a day for the next 21 days after that switch to 20 mg daily until your primary care physician tells you not to take it anymore. Please return to the emergency department for worsening pain, worsening short ness of breath or any new or concerning symptoms. Do not take NSAIDs such as ibuprofen, Aleve, Advil or aspirin while taking blood thinners. You may take acetaminophen 1000 mg every 6 hours as needed for pain. Prescriptions: Prednisone [Deltasone 20 mg Tablet] 2 tab PO DAILY 5 Days tablet Rivaroxaban [Xarelto 10 mg Tablet] 20 mg PO DAILY #30 tablet Rivaroxaban [Xarelto 15 mg Tablet] 15 mg PO BID #42 tablet Referrals: [facility] [Provider Group] - Follow up as needed I personally performed the services described in the documentation, reviewed and edited the documentation which was dictated to the scribe in my presence, and it accurately records my words and actions.
== END 2019-01-14 13:38 | disposition home or self-care (01) ==
LOC: ER 09:32
DX: R07.81 Pleurodynia (principal); M79.604 Pain in right leg; I26.99 Other pulmonary embolism without acute cor pulmonale; E66.9 Obesity, unspecified; M79.89 Other specified soft tissue disorders; J44.9 Chronic obstructive pulmonary disease, unspecified; I10 Essential (primary) hypertension; E11.9 Type 2 diabetes mellitus without complications; E78.00 Pure hypercholesterolemia, unspecified; Z68.39 Body mass index [BMI] 39.0-39.9, adult; Z91.14 Patient's other noncompliance with medication regimen
CPT/HCPCS: 36415; 71046; 80053; 83880; 84484; 85025; 85610; 85730; 93005; 93010; 93970; 99285

== ENCOUNTER 2019-01-24 10:17 | Emergency (ER) | payer OTHER ==
--- NOTE | 2019-01-24 11:11 | ER Document Report ---
ED Medical Screen (RME) - General Chief Complaint: Hand Pain Stated Complaint: NUMBNESS Time Seen by Provider: 01/24/19 10:55 Notes: Patient is a 43-year-old male with a history of pulmonary embolus, COPD, diabetes, congestive heart failure, hypertension who presents to the emergency department with multiple complaints. Patient states he has had joint pain all over for 1 month. She states that over the past month he has noticed stiffness in his joints and has become very difficult to walk due to the pain. Patient states that the joint pain is located in his arms legs shoulders "all over." Patient states he was diagnosed about 1 month ago with a pulmonary embolism but has not been on blood thinners as he cannot afford his medications. Patient states this morning he woke up breathing "a little heavier than normal." States he is also had left-sided chest pain. Patient states he is also noticed swelling in both of his lower extremities. Patient denies headache or dizziness. Patient denies recent cough or cold. She is not currently taking any medications for his diabetes, heart issues or for his pulmonary embolus. TRAVEL OUTSIDE OF THE [place] IN LAST 30 DAYS: No - Related Data Allergies/Adverse Reactions: No Known Allergies Allergy (Verified 01/14/19 10:00) Past Medical History - Past Medical History Cardiac Medical History: Reports: Hx Hypercholesterolemia, Hx Hypertension Denies: Hx Atrial Fibrillation, Hx Coronary Artery Disease, Hx DVT, Hx Heart Attack, Hx Pulmonary Embolism Pulmonary Medical History: Reports: Hx COPD, Hx Sleep Apnea Denies: Hx Asthma Neurological Medical History: Denies: Hx Seizures Endocrine Medical History: Reports: Hx Diabetes Mellitus Type 2. Denies: Hx Diabetes Mellitus Type 1, Hx Hyperthyroidism, Hx Hypothyroidism Renal/ Medical History: Denies: Hx Peritoneal Dialysis GI Medical History: Denies: Hx Cirrhosis, Hx Hepatitis Musculoskeltal Medical History: Denies Hx Arthritis, Reports Hx Gout Skin Medical History: Denies Hx Eczema, Denies Hx Psoriasis Psychiatric Medical History: Reports: Hx Anxiety, Hx Depression Infectious Medical History: Denies: Hx Hepatitis Past Surgical History: Reports: Hx Abdominal Surgery, Hx Orthopedic Surgery - Rt knee - Immunizations Hx Diphtheria, Pertussis, Tetanus Vaccination: Yes Physical Exam - Vital signs Vitals: Temp Pulse Resp BP Pulse Ox 99.3 F 110 H 18 215/122 H 97 01/24/19 10:41 01/24/19 10:41 01/24/19 10:41 01/24/19 10:41 01/24/19 10:41 - Cardiovascular Rhythm: Tachycardia Heart sounds: Normal auscultation, S1 appreciated, S2 appreciated Notes: Chest pain is not re-producible with palpation. - Extremities Notes: Bilateral + 2 pitting edema in lower extremities. Course - Re-evaluation Re-evalutation: 01/24/19 11:13 Patient is hypertensive in triage. Patient states he has not been able to take any medications as he cannot afford them. Denies numbness or tingling to upper or lower extremities. Patient speech is clear and appropriate. Patient denies headache. Patient is nontoxic-appearing in triage and able to speak in full complete sentences. Will obtain a cardiac work-up. I have greeted and performed a rapid initial assessment of this patient. A comprehensive ED assessment and evaluation of the patient, analysis of test results and completion of the medical decision making process will be conducted by additional ED providers. - Vital Signs Vital signs: Temp Pulse Resp BP Pulse Ox 99.3 F 110 H 18 215/122 H 97 01/24/19 10:41 01/24/19 10:41 01/24/19 10:41 01/24/19 10:41 01/24/19 10:41
[2019-01-24 11:46] LABS: ABSOLUTE BASOPHILS # (AUTO) 0.1 10^3/uL (0.0-0.2); ABSOLUTE EOSINOPHILS # (AUTO) 0.2 10^3/uL (0.0-0.6); ABSOLUTE LYMPHOCYTES (AUTO) 1.6 10^3/uL (0.5-4.7); ABSOLUTE MONOCYTES (AUTO) 0.5 10^3/uL (0.1-1.4); ABSOLUTE NEUT (AUTO) 4.4 10^3/uL (1.7-8.2); BASOPHILS % (AUTO) 0.9 % (0-2); EOSINOPHILS % (AUTO) 3.5 % (0-6); HEMATOCRIT 39.1 % (37.9-51.0); HEMOGLOBIN 13.2 g/dL (13.5-17.0); INTERNATIONAL RATION (INR) 1.07; LYMPHOCYTES % (AUTO) 23.8 % (13-45); MEAN CORPUSCULAR HEMOGLOBIN 28.9 pg (27.0-33.4); MEAN CORPUSCULAR HGB CONC 33.8 g/dL (32.0-36.0); MEAN CORPUSCULAR VOLUME 86 fl (80-97); MONOCYTES % (AUTO) 7.1 % (3-13); PLATELET COUNT 180 10^3/uL (150-450); PROTHROMBIN TIME 14.4 SEC (11.4-15.4); RED BLOOD COUNT 4.58 10^6/uL (4.35-5.55); RED CELL DISTRIBUTION WIDTH 15.1 % (11.5-14.0); SEGMENTED NEUTROPHILS % (AUTO) 64.7 % (42-78); TOTAL CELLS COUNTED % (AUTO) 100 %; WHITE BLOOD COUNT 6.8 10^3/uL (4.0-10.5)
[2019-01-24 11:47] LABS: PARTIAL THROMBOPLASTIN TIME 29.7 SEC (23.5-35.8)
[2019-01-24 12:00] LABS: ALANINE AMINOTRANSFERASE 38 U/L (21-72); ALBUMIN 3.8 g/dL (3.5-5.0); ALKALINE PHOSPHATASE 107 U/L (38-126); ANION GAP 10 (5-19); ASPARTATE AMINO TRANSFERASE 27 U/L (17-59); BILIRUBIN,DIRECT 0.3 mg/dL (0.0-0.4); BLOOD UREA NITROGEN 11 mg/dL (7-20); CALCIUM 8.4 mg/dL (8.4-10.2); CARBON DIOXIDE 30 mmol/L (22-30); CHLORIDE 102 mmol/L (98-107); GLUCOSE 159 mg/dL (75-110); POTASSIUM 3.6 mmol/L (3.6-5.0); SODIUM 142.3 mmol/L (137-145); TOTAL PROTEIN 7.7 g/dL (6.3-8.2)
--- NOTE | 2019-01-24 12:01 | RADIOLOGY REPORT (SQ) ---
EXAM DESCRIPTION: CHEST 2 VIEWS COMPLETED DATE/TIME: 01/24/2019 11:45 am REASON FOR STUDY: chest pressure COMPARISON: 01/14/2019 EXAM PARAMETERS: NUMBER OF VIEWS: two views TECHNIQUE: Digital Frontal and Lateral radiographic views of the chest acquired. RADIATION DOSE: NA LIMITATIONS: none FINDINGS: LUNGS AND PLEURA: No opacities, masses or pneumothorax. No pleural effusion. MEDIASTINUM AND HILAR STRUCTURES: No masses or contour abnormalities. HEART AND VASCULAR STRUCTURES: Heart normal size. No evidence for failure. BONES: No acute findings. HARDWARE: None in the chest. OTHER: No other significant finding. IMPRESSION: NO ACUTE RADIOGRAPHIC FINDING IN THE CHEST. TECHNICAL DOCUMENTATION: JOB ID: [id number] [employer]- All Rights Reserved Reading location - IP/workstation name: [email or web address]
[2019-01-24 12:12] LABS: TROPONIN I 0.029 ng/mL
[2019-01-24] MEDS ORDERED: MORPHINE SULFATE 10 MG/ML INJ IV ONE (13:15)
[2019-01-24] MEDS ORDERED: ONDANSETRON HCL INJ/PF 4 MG/2 ML SDV IV ONE (13:15)
[2019-01-24] MEDS ORDERED: LISINOPRIL 10 MG TABLET PO ONE (13:16)
--- NOTE | 2019-01-24 13:18 | ER Document Report ---
ED General - General Chief Complaint: Hand Pain Stated Complaint: NUMBNESS Time Seen by Provider: 01/24/19 10:55 Mode of Arrival: Ambulatory Information source: Patient, [facility] Records Notes: Patient is a 43-year-old male with a history of pulmonary embolus, COPD, diabetes, congestive heart failure, hypertension who presents to the emergency department with multiple complaints. Patient states he has had joint pain all over for 1 month. She states that over the past month he has noticed stiffness in his joints and has become very difficult to walk due to the pain. Patient states that the joint pain is located in his arms legs shoulders "all over." Patient states he was diagnosed about 1 month ago with a pulmonary embolism but has not been on blood thinners as he cannot afford his medications. Patient states this morning he woke up breathing "a little heavier than normal." States he is also had left-sided chest pain. Patient states he is also noticed swelling in both of his lower extremities. Patient denies headache or dizziness. Patient denies recent cough or cold. he is not currently taking any medications for his diabetes, heart issues or for his pulmonary embolus because he does not have insurance and cannot afford them.. TRAVEL OUTSIDE OF THE [place] IN LAST 30 DAYS: No - HPI Onset: Other Onset/Duration: Gradual, Persistent Quality of pain: Achy Severity: Mild Associated symptoms: Body/muscle aches, Chest pain, Nonproductive cough, Leg swelling, Shortness of breath. denies: Fever, Headache, Nausea, Vomiting Exacerbated by: Movement, Walking, Coughing Relieved by: Denies Similar symptoms previously: Yes Recently seen / treated by doctor: No - Related Data Allergies/Adverse Reactions: No Known Allergies Allergy (Verified 01/14/19 10:00) Past Medical History - General Information source: Patient - Social History Smoking Status: Never Smoker Chew tobacco use (# tins/day): No Frequency of alcohol use: None Drug Abuse: None Lives with: Alone Family History: DM, Hyperlipidemia, Hypertension, Thyroid Disfunction Patient has suicidal ideation: No Patient has homicidal ideation: No - Past Medical History Cardiac Medical History: Reports: Hx Hypercholesterolemia, Hx Hypertension Denies: Hx Atrial Fibrillation, Hx Coronary Artery Disease, Hx DVT, Hx Heart Attack, Hx Pulmonary Embolism Pulmonary Medical History: Reports: Hx COPD, Hx Sleep Apnea Denies: Hx Asthma Neurological Medical History: Denies: Hx Seizures Endocrine Medical History: Reports: Hx Diabetes Mellitus Type 2. Denies: Hx Diabetes Mellitus Type 1, Hx Hyperthyroidism, Hx Hypothyroidism Renal/ Medical History: Denies: Hx Peritoneal Dialysis GI Medical History: Denies: Hx Cirrhosis, Hx Hepatitis Musculoskeletal Medical History: Denies Hx Arthritis, Reports Hx Gout Skin Medical History: Denies Hx Eczema, Denies Hx Psoriasis Psychiatric Medical History: Reports: Hx Anxiety, Hx Depression Infectious Medical History: Denies: Hx Hepatitis Past Surgical History: Reports: Hx Abdominal Surgery, Hx Orthopedic Surgery - Rt knee - Immunizations Hx Diphtheria, Pertussis, Tetanus Vaccination: Yes Review of Systems - Review of Systems Constitutional: Malaise, Recent illness EENT: denies: Difficulty swallowing Cardiovascular: Chest pain, Palpitations Respiratory: Cough, Short of breath Gastrointestinal: denies: Abdominal pain, Vomiting Genitourinary: denies: Hematuria Musculoskeletal: Muscle pain, Muscle stiffness Skin: denies: Rash Hematologic/Lymphatic: No symptoms reported Neurological/Psychological: denies: Confusion, Loss of power, Headaches, Suicidal ideation -: Yes All other systems reviewed and negative Physical Exam - Vital signs Vitals: Temp Pulse Resp BP Pulse Ox 99.3 F 110 H 18 215/122 H 97 01/24/19 10:41 01/24/19 10:41 01/24/19 10:41 01/24/19 10:41 01/24/19 10:41 - Notes Notes: PHYSICAL EXAMINATION: GENERAL: Well-appearing, well-nourished and in no acute distress. HEAD: Atraumatic, normocephalic. EYES: Pupils equal round and reactive to light, extraocular movements intact, sclera anicteric, conjunctiva are normal. ENT: Nares patent, oropharynx clear without exudates. Moist mucous membranes. NECK: Normal range of motion, supple without lymphadenopathy LUNGS: Breath sounds clear to auscultation bilaterally and equal. No wheezes rales or rhonchi. HEART: Regular rate and rhythm without murmurs ABDOMEN: Soft, nontender, nondistended abdomen. No guarding, no rebound. No masses appreciated. Musculoskeletal: Normal range of motion, no pitting or edema. No cyanosis. NEUROLOGICAL: Cranial nerves grossly intact. Normal speech, normal gait. Normal sensory, motor exams PSYCH: Normal mood, normal affect. SKIN: Warm, Dry, normal turgor, no rashes or lesions noted. Course - Re-evaluation Re-evalutation: Laboratory 01/24/19 01/24/19 01/24/19 11:23 11:23 11:23 WBC 6.8 RBC 4.58 Hgb 13.2 L Hct 39.1 MCV 86 MCH 28.9 MCHC 33.8 RDW 15.1 H Plt Count 180 Seg Neutrophils % 64.7 Lymphocytes % 23.8 Monocytes % 7.1 Eosinophils % 3.5 Basophils % 0.9 Absolute Neutrophils 4.4 Absolute Lymphocytes 1.6 Absolute Monocytes 0.5 Absolute Eosinophils 0.2 Absolute Basophils 0.1 PT INR APTT D-Dimer Sodium 142.3 Potassium 3.6 Chloride 102 Carbon Dioxide 30 Anion Gap 10 BUN 11 Creatinine 0.88 Est GFR ( Amer) > 60 Est GFR (Non-Af Amer) > 60 Glucose 159 H Calcium 8.4 Total Bilirubin 1.0 Direct Bilirubin 0.3 Neonat Total Bilirubin Not Reportable Neonat Direct Bilirubin Not Reportable Neonat Indirect Bili Not Reportable AST 27 ALT 38 Alkaline Phosphatase 107 Troponin I 0.029 NT-Pro-B Natriuret Pep 329 H Total Protein 7.7 Albumin 3.8 01/24/19 01/24/19 01/24/19 11:23 11:23 13:43 WBC RBC Hgb Hct MCV MCH MCHC RDW Plt Count Seg Neutrophils % Lymphocytes % Monocytes % Eosinophils % Basophils % Absolute Neutrophils Absolute Lymphocytes Absolute Monocytes Absolute Eosinophils Absolute Basophils PT 14.4 INR 1.07 APTT 29.7 D-Dimer 2.62 H Sodium Potassium Chloride Carbon Dioxide Anion Gap BUN Creatinine Est GFR ( Amer) Est GFR (Non-Af Amer) Glucose Calcium Total Bilirubin Direct Bilirubin Neonat Total Bilirubin Neonat Direct Bilirubin Neonat Indirect Bili AST ALT Alkaline Phosphatase Troponin I 0.037 NT-Pro-B Natriuret Pep 370 H Total Protein Albumin Chest X-Ray 01/24/19 11:06 IMPRESSION: NO ACUTE RADIOGRAPHIC FINDING IN THE CHEST. Chest/Abdomen CTA 01/24/19 14:56 IMPRESSION: Residual minimal consolidation in the left posterior costophrenic sulcus with trace pleural fluid from pulmonary infarct related to acute pulmonary emboli seen on CT 12/23/2018. Today's small focus of consolidation and trace pleural effusion is less prominent than on previous studies. Temp Pulse Resp BP Pulse Ox 99.3 F 110 H 24 H 176/108 H 93 01/24/19 10:41 01/24/19 10:41 01/24/19 16:01 01/24/19 16:01 01/24/19 16:01 43-year-old male presents with multiple complaints including hand pain arm pain chest pain shortness of breath. Patient states all of this have been ongoing for approximately 2 months since his diagnosis of pulmonary embolism. Patient states that he has been noncompliant with his metformin, lisinopril and Xarelto due to inability to pay. Vital signs reviewed and patient is initially tachycardic but this resolved without intervention. Patient also has markedly elevated blood pressure secondary to medication noncompliance and his home medication of lisinopril was provided. CBC is without leukocytosis or anemia. CMP shows hyperglycemia without evidence of DKA. Cardiac enzymes are within normal limits. Patient did have an elevated d-dimer which prompted a repeat CTA which shows trace pleural fluid likely secondary from patient's pulmonary infarct. These were seen on previous CT done 12/23/2018 but are less prominent. Patient did receive Lovenox during his ED course because I was unsure whether or not we would be able to provide him with his Xarelto. 01/24/19 15:27 Social work consulted for help with medications. Lower extremity Doppler negative for DVT. 01/24/19 16:37 Patient has been provided a 30-day free course of Xarelto. A prescription for lisinopril will be written for the patient as well as metformin. 01/24/19 16:39 I did speak to social work who states that they will be able to get the patient's lisinopril prescription for free or at least a discounted higgins. He has been given instructions to contact the community care in clinic. 01/24/19 17:15 01/24/19 17:17 Patient was evaluated and treated as appropriate for the patient's presenting symptoms and complaint, with consideration of any critical or life threatening conditions that may be associated with their obtained history and exam as noted above. All results were discussed with patient. Patient provided the opportunity to ask questions, and express concerns. Patient was educated on treatments based on their presumed diagnosis as noted above. At this time we will discharge the patient with return precautions and follow-up recommendations. Verbal discharge instructions given a the bedside. Medication warnings reviewed. Patient is in agreement with this plan and has verbalized understanding of return precautions. After careful consideration I feel that that patient can be safely discharged from the emergency department, they were advised to followup with a primary care physician in 2-3 days. Dictation on this chart was performed using voice recognition software and may result in unintended grammatical, spelling, syntax or errors. - Vital Signs Vital signs: Temp Pulse Resp BP Pulse Ox 98.4 F 96 16 171/110 H 95 01/24/19 16:46 01/24/19 16:46 01/24/19 16:46 01/24/19 16:46 01/24/19 16:46 - Laboratory Result Diagrams: 01/24/19 11:23 01/24/19 11:23 Laboratory results interpreted by me: 01/24/19 01/24/19 01/24/19 11:23 11:23 11:23 Hgb 13.2 L RDW 15.1 H D-Dimer Glucose 159 H NT-Pro-B Natriuret Pep 329 H 01/24/19 01/24/19 11:23 13:43 Hgb RDW D-Dimer 2.62 H Glucose NT-Pro-B Natriuret Pep 370 H - Diagnostic Test Radiology reviewed: Image reviewed, Reports reviewed - EKG Interpretation by Me EKG shows normal: Sinus rhythm Rate: Tachycardia Rhythm: NSR When compared to previous EKG there are: No significant change Discharge - Discharge Clinical Impression: Pulmonary infarction, Myalgia, Noncompliance with medication regimen, Pulmonary embolus with infarction Hypertension Qualifiers: Hypertension type: unspecified Qualified Code(s): I10 - Essential (primary) hypertension Diabetes Qualifiers: Diabetes mellitus type: type 2 Diabetes mellitus prison insulin use: without prison use Diabetes mellitus complication status: without complication Qualified Code(s): E11.9 - Type 2 diabetes mellitus without complications Condition: Good Disposition: HOME, SELF-CARE Instructions: Diabetes ([facility]), High Blood Pressure ([facility]), Myalagia (Muscle Pain) ([facility]) Additional Instructions: You have been given a 30-day free trial of Xarelto. It is imperative that you t brianna this for your pulmonary embolism. The chest pain that you are experiencing is likely due to the small infarction you have in your lung. You have also been given a prescription for your blood pressure and diabetes medication. Please follow-up in the [facility]. Prescriptions: Lisinopril/Hydrochlorothiazide [Lisinopril-Hctz 20-12.5 mg Tab] 1 each PO DAILY #30 tablet Metformin HCl [Glucophage 500 mg Tablet] 500 mg PO BID #60 tablet Forms: Elevated Blood Pressure
[2019-01-24 14:34] LABS: TROPONIN I 0.037 ng/mL
--- NOTE | 2019-01-24 15:44 | RADIOLOGY REPORT (SQ) ---
EXAM DESCRIPTION: CTA CHEST COMPLETED DATE/TIME: 01/24/2019 3:25 pm REASON FOR STUDY: History of PE noncompliant on meds elevated dimer COMPARISON: CT chest 12/31/2018, 12/23/2018, 05/31/2018 TECHNIQUE: CT scan of the chest performed using helical scanning technique with dynamic intravenous contrast injection. Images reviewed with lung, soft tissue and bone windows. Reconstructed coronal and sagittal MPR images reviewed. Additional 3 dimensional post-processing performed to develop Maximal Intensity Projection images (MA P). All images stored on PACS. All CT scanners at this facility use dose modulation, iterative reconstruction, and/or weight based d osing when appropriate to reduce radiation dose to as low as reasonably achievable (ALARA). [facility]: Dose Right [facility]: CareDose [facility]: Dose Right [facility]: Teradose 4D [facility]: Kwicr CONTRAST TYPE AND DOSE: contrast/concentration: Isovue 350.00 mg/ml; Total Contrast Delivered: 86.0 ml; Total Saline Delivered: 90.0 ml Contrast bolus optimized for the pulmonary arteries. Not diagnostic for the aorta. RENAL FUNCTION: Creatinine 0.88 RADIATION DOSE: CT Rad equipment meets quality standard of care and radiation dose reduction techniq ues were employed. CTDIvol: 31.7 - 52.9 mGy. DLP: 1283 mGy-cm. . LIMITATIONS: None. FINDINGS: LUNGS AND PLEURA: Left basilar infiltrate, likely a resolving pulmonary infarct. Trace l eft pleural effusion. This is less prominent than on 12/31/2018 and 12/23/2018. Right lung well inflated and clear. No right pleural effusion. No right or left pneumothorax AORTA AND GREAT VESSELS: No aneurysm. Contrast bolus not optimized for the aorta. HEART: No pericardial effusion. No significant coronary artery calcifications. PULMONARY ARTERIES: No emboli visualized in the main pulmonary arteries or the segmental branches. HILAR AND MEDIASTINAL STRUCTURES: No identified masses or abnormal nodes. HARDWARE: None in the chest. UPPER ABDOMEN: No significant findings. Limited exam. THYROID AND OTHER SOFT TISSUES: Diffuse thyromegaly BONES: No acute or significant finding. 3D MIPS: Confirm above findings. OTHER: No other significant finding. IMPRESSION: Residual minimal consolidation in the left posterior costophrenic sulcus with trace pleu ral fluid from pulmonary infarct related to acute pulmonary emboli seen on CT 12/23/2018. Today's sma ll focus of consolidation and trace pleural effusion is less prominent than on previous studies. COMMENT: Quality ID # [id number]: Final reports with documentation of one or more dose reduction techniques (e.g., Automated exposure control, adjustment of the mA and/or kV according to patient size, use of iterative reconstruction technique) TECHNICAL DOCUMENTATION: JOB ID: [id number] [employer]- All Rights Reserved Reading location - IP/workstation name: [email or web address]
[2019-01-24] MEDS ORDERED: ENOXAPARIN SODIUM INJ 120 MG/0.8 ML DISP.SYRIN SUBCUT ONE (16:35)
[2019-01-24] MEDS ORDERED: HYDROCODONE/ACETAMINOPHEN 5-325 MG (6 TAB/ER DISP) PO PRN (16:46)
[2019-01-24 16:48] VITALS: BP 171/110
--- NOTE | 2019-01-24 19:19 | EKG REPORT ---
SEVERITY:- ABNORMAL ECG - SINUS TACHYCARDIA [Remains] NONSPECIFIC T ABNORMALITIES, DIFFUSE LEADS [More Prom.] BORDERLINE PROLONGED QT INTERVAL [Insig. Chg.] NO SIGNIFICANT CHANGE [Now Absent] VENTRICULAR PREMATURE COMPLEX : Confirmed by: Lesley Shipman MD 24-Jan-2019 19:18:20
--- NOTE | 2019-01-25 14:12 | XCELERA REPORT ---
[address] [place] [facility] [address] Lower Extremity Venous Evaluation Procedure: Color flow and duplex imaging of the veins of the right lower extremity as well as the left Common Femoral vein. Right Sided Venous Evaluation Normal vessel filling wall to wall, compression and augmentation as well as Colour flow down to the infrageniculate veins. Left Sided Venous Evaluation The left common femoral vein is fully compressible. Spontaneous and phasic flow is present in the left common femoral vein. Interpretation Summary No duplex evidence of DVT or obstruction in the right lower extremity nor in the left Common Femoral vein. Name: NORBERTO CRISOSTOMO Age: 43 yrs Gender: Male : 1975 Patient Status: Emergency Patient Location: ER Study Date: 01/24/2019 02:39 PM Reason For Study: pain left leg h/o PE Ordering Physician: CATALINA BAR Performed By: Anabel Herrera : CATALINA BAR > Kumar Marcial
== END 2019-01-24 17:02 | disposition home or self-care (01) ==
LOC: ER 10:17
DX: I26.99 Other pulmonary embolism without acute cor pulmonale (principal); M79.10 Myalgia, unspecified site; E11.9 Type 2 diabetes mellitus without complications; I10 Essential (primary) hypertension; R20.0 Anesthesia of skin; R07.9 Chest pain, unspecified; R05 Cough; M79.89 Other specified soft tissue disorders; R53.81 Other malaise; R00.2 Palpitations; J44.9 Chronic obstructive pulmonary disease, unspecified; Z91.14 Patient's other noncompliance with medication regimen
CPT/HCPCS: 99284; 96372; 96374; 96375; 36415; 85025; 85610; 85730; 80053; 84484; 85379; 83880; 93971 ×2; 71046; 71275; 93005; 93010; J1650; J2270; J2405

== ENCOUNTER 2019-08-11 12:12 | Emergency (ER) | payer OTHER ==
[2019-08-11] MEDS ORDERED: ACETAMINOPHEN 325 MG TABLET PO ONE (12:57)
--- NOTE | 2019-08-11 13:01 | ER Document Report ---
HPI - HPI Time Seen by Provider: 08/11/19 12:44 Onset: Other - Several months Onset/Duration: Persistent Quality of pain: Achy Pain Level: 5 Context: Patient presents complaining of ktvq-ynl-gktynxn sensation to bilateral feet for the past several months. Patient also reports left shoulder pain that radiates down the left upper extremity. Patient denies any injury to the shoulder. Patient denies any fever. Patient denies any back tenderness. Patient does report some mild neck pain. Patient states that he has a history of diabetic neuropathy. Patient states he just relocated to this area and has not gotten established with a local doctor yet. Associated Symptoms: Other - Bilateral foot pain, left shoulder pain Exacerbated by: Movement Relieved by: Denies Similar symptoms previously: Yes Recently seen / treated by doctor: No - ROS ROS below otherwise negative: Yes Systems Reviewed and Negative: Yes All other systems reviewed and negative - CONSTITUTIONAL Constitutional: DENIES: Fever, Chills - NEURO Neurology: DENIES: Headache, Weakness - GASTROINTESTINAL Gastrointestinal: DENIES: Nausea - MUSCULOSKELETAL Musculoskeletal: REPORTS: Extremity pain, Neck Pain - DERM Skin Color: Normal Past Medical History - General Information source: Patient - Social History Smoking Status: Never Smoker Frequency of alcohol use: Occasional Drug Abuse: None Occupation: None Lives with: Family Family History: DM, Hyperlipidemia, Hypertension, Thyroid Disfunction Patient has suicidal ideation: No Patient has homicidal ideation: No - Past Medical History Cardiac Medical History: Reports: Hx Hypercholesterolemia, Hx Hypertension Pulmonary Medical History: Reports: Hx COPD, Hx Sleep Apnea Neurological Medical History: Denies: Hx Seizures Endocrine Medical History: Reports: Hx Diabetes Mellitus Type 2 Renal/ Medical History: Denies: Hx Peritoneal Dialysis Musculoskeletal Medical History: Denies Hx Arthritis, Reports Hx Gout Psychiatric Medical History: Reports: Hx Anxiety, Hx Depression Infectious Medical History: Denies: Hx Hepatitis Past Surgical History: Reports: Hx Abdominal Surgery, Hx Orthopedic Surgery - Rt knee - Immunizations Hx Diphtheria, Pertussis, Tetanus Vaccination: Yes Vertical Provider Document - CONSTITUTIONAL Agree With Documented VS: Yes Exam Limitations: No Limitations General Appearance: WD/WN, No Apparent Distress - INFECTION CONTROL TRAVEL OUTSIDE OF THE [place] IN LAST 30 DAYS: No - HEENT HEENT: Atraumatic, Normocephalic - NECK Neck: Normal Inspection, Supple. negative: Lymphadenopathy-Left, Lymphadenopathy-Right - RESPIRATORY Respiratory: Breath Sounds Normal, No Respiratory Distress - CARDIOVASCULAR Cardiovascular: Regular Rate, Regular Rhythm, No Murmur Pulses: Normal: Radial, Dorsalis pedis - BACK Back: Normal Inspection - MUSCULOSKELETAL/EXTREMETIES Musculoskeletal/Extremeties: MAEW, FROM, Tender - Generalized tenderness to bilateral feet, no edema, 2+ radial pulse to left arm and 2+ dorsalis pedis pulse bilaterally. Normal cap refill to bilateral feet, No Edema - NEURO Level of Consciousness: Awake, Alert, Appropriate Motor/Sensory: No Motor Deficit - DERM Integumentary: Warm, Dry, No Rash Course - Re-evaluation Re-evalutation: 08/11/19 14:25 Patient presents with left shoulder joint tenderness for several months without any acute injury. Patient without any fracture or dislocation. Patient with likely arthritic component to his pain symptoms. Also discussed with patient the possible cervical radicular pain as patient does have multiple areas of degenerative changes throughout the cervical spine. Patient has a known history of diabetic neuropathy. Will start patient on a short course of Lyrica to help with his neuropathy pain symptoms. Patient with good pulses and cap refill to bilateral lower extremities. No concern for any DVT or acute vascular stenosis. - Vital Signs Vital signs: Temp Pulse Resp BP Pulse Ox 98.8 F 96 16 146/106 H 94 08/11/19 12:26 08/11/19 12:26 08/11/19 12:26 08/11/19 12:26 08/11/19 12:26 - Laboratory Result Diagrams: 08/11/19 13:05 Laboratory results interpreted by me: 08/11/19 14:25 Labs- Entire Visit 08/11/19 13:05 Sodium 142.0 Potassium 4.4 Chloride 102 Carbon Dioxide 29 Anion Gap 11 BUN 14 Creatinine 0.90 Est GFR ( Amer) > 60 Est GFR (MDRD) Non-Af > 60 Glucose 96 Calcium 9.8 - Diagnostic Test Radiology reviewed: Image reviewed, Reports reviewed Discharge - Discharge Clinical Impression: Neuropathy, Foot pain, bilateral, Arthritis Shoulder joint pain Qualifiers: Laterality: left Qualified Code(s): M25.512 - Pain in left shoulder Condition: Stable Disposition: HOME, SELF-CARE Instructions: Arthritis ([facility]), Neuropathy ([facility]) Additional Instructions: Return immediately for any new or worsening symptoms Followup with your primary care provider, call tomorrow to make a followup appointment Follow-up with orthopedics for any persistent left shoulder joint pain Prescriptions: Diclofenac Epolamine [Flector] 1 each TP BID PRN #14 adh..patch PRN Reason: Pregabalin [Lyrica 25 Mg Capsule] 25 mg PO DAILY #10 capsule Referrals: [facility] [Provider Group] - Follow up as needed [facility] [Provider Group] - Follow up as needed [facility] [Provider Group] - Follow up as needed
[2019-08-11 13:49] LABS: ANION GAP 11 (5-19); BLOOD UREA NITROGEN 14 mg/dL (7-20); CALCIUM 9.8 mg/dL (8.4-10.2); CARBON DIOXIDE 29 mmol/L (22-30); CHLORIDE 102 mmol/L (98-107); GLUCOSE 96 mg/dL (75-110); POTASSIUM 4.4 mmol/L (3.6-5.0)
--- NOTE | 2019-08-11 13:49 | RADIOLOGY REPORT (SQ) ---
EXAM DESCRIPTION: SHOULDER LEFT 2 OR MORE VIEWS COMPLETED DATE/TIME: 08/11/2019 1:34 pm REASON FOR STUDY: L shoulder joint pain COMPARISON: 01/14/2019 NUMBER OF VIEWS: Three views. TECHNIQUE: Internal rotation, external rotation, and Y view images acquired of the left shoulder. LIMITATIONS: None. FINDINGS: MINERALIZATION: Normal. BONES: No definite acute bony abnormality. Extensive glenohumeral osteophytosis and joint space loss . Associated subchondral sclerosis and cystic change. Acromioclavicular joint is unremarkable. JOINTS: No dislocation. VISUALIZED LUNGS AND RIBS: No pneumothorax. No rib fracture. SOFT TISSUES: No radiopaque foreign body. OTHER: No other significant finding. IMPRESSION: No definite acute bony abnormality. Dysmorphic appearance of the glenohumeral joint lik fran secondary to excessive glenohumeral arthropathy. TECHNICAL DOCUMENTATION: JOB ID: [id number] [employer]- All Rights Reserved Reading location - IP/workstation name: [email or web address]
--- NOTE | 2019-08-11 13:57 | RADIOLOGY REPORT (SQ) ---
EXAM DESCRIPTION: CERV SP 4 OR 5 VIEWS COMPLETED DATE/TIME: 08/11/2019 1:34 pm REASON FOR STUDY: LUE pain COMPARISON: None. NUMBER OF VIEWS: Five views. TECHNIQUE: AP, lateral, obliques and odontoid radiographic images acquired of the cervical spine. LIMITATIONS: None. FINDINGS: MINERALIZATION: Normal. ALIGNMENT: Straightening of the normal cervical lordosis. VERTEBRAE: Vertebral bodies of normal height. DISCS: Multilevel disc height loss and endplate change throughout the cervical spine. Disc height lo ss greatest at C3-C6. They are anterior and posterior projecting disc osteophyte complexes. FORAMINA: Multilevel osseous neural foraminal narrowing secondary to disc and facet disease and great est at C4-C6 on the right. LATERAL AND POSTERIOR ELEMENTS: Mild multilevel facet arthropathy. No facet fracture dislocation. HARDWARE: None in the spine. SOFT TISSUES: No masses or calcifications. Lung apices clear. OTHER: No other significant finding. IMPRESSION: 1. No evidence of acute bony abnormality of the cervical spine. 2. Multilevel degenerative disc disease and facet arthropathy throughout the cervical spine as katherine led above. TECHNICAL DOCUMENTATION: JOB ID: [id number] [employer]- All Rights Reserved Reading location - IP/workstation name: [email or web address]
[2019-08-11 14:16] VITALS: BP 134/83
[2019-08-11] MEDS ORDERED: PREGABALIN 25 MG CAPSULE PO ONE (14:30)
== END 2019-08-11 14:45 | disposition home or self-care (01) ==
LOC: ER 12:12
DX: E11.40 Type 2 diabetes mellitus with diabetic neuropathy, unspecified (principal); M19.90 Unspecified osteoarthritis, unspecified site; M50.30 Other cervical disc degeneration, unspecified cervical region; M25.512 Pain in left shoulder; M79.671 Pain in right foot; M79.672 Pain in left foot; I10 Essential (primary) hypertension; J44.9 Chronic obstructive pulmonary disease, unspecified
CPT/HCPCS: 99283; 36415; 80048; 72050; 73030; J3490

== ENCOUNTER 2019-11-11 10:17 | Emergency (ER) | payer OTHER ==
--- NOTE | 2019-11-11 11:05 | RADIOLOGY REPORT (SQ) ---
EXAM DESCRIPTION: CHEST SINGLE VIEW IMAGES COMPLETED DATE/TIME: 11/11/2019 10:57 am REASON FOR STUDY: dyspnea COMPARISON: 01/24/2019 EXAM PARAMETERS: NUMBER OF VIEWS: One view. TECHNIQUE: Single frontal radiographic view of the chest acquired. RADIATION DOSE: NA LIMITATIONS: None. FINDINGS: LUNGS AND PLEURA: No opacities, masses or pneumothorax. No pleural effusion. MEDIASTINUM AND HILAR STRUCTURES: No masses. Contour normal. HEART AND VASCULAR STRUCTURES: Heart normal in size. Normal vasculature. BONES: No acute findings. HARDWARE: None in the chest. OTHER: No other significant finding. IMPRESSION: NO ACUTE RADIOGRAPHIC FINDING IN THE CHEST. TECHNICAL DOCUMENTATION: JOB ID: [id number] 2010 [employer]- All Rights Reserved Reading location - IP/workstation name: [email or web address]
[2019-11-11 11:59] LABS: ABSOLUTE BASOPHILS # (AUTO) 0.1 10^3/uL (0.0-0.2); ABSOLUTE EOSINOPHILS # (AUTO) 0.4 10^3/uL (0.0-0.6); ABSOLUTE LYMPHOCYTES (AUTO) 2.2 10^3/uL (0.5-4.7); ABSOLUTE MONOCYTES (AUTO) 0.7 10^3/uL (0.1-1.4); ABSOLUTE NEUT (AUTO) 5.1 10^3/uL (1.7-8.2); BASOPHILS % (AUTO) 1.2 % (0-2); EOSINOPHILS % (AUTO) 4.2 % (0-6); HEMATOCRIT 42.6 % (37.9-51.0); HEMOGLOBIN 14.8 g/dL (13.5-17.0); LYMPHOCYTES % (AUTO) 25.7 % (13-45); MEAN CORPUSCULAR HEMOGLOBIN 28.9 pg (27.0-33.4); MEAN CORPUSCULAR HGB CONC 34.8 g/dL (32.0-36.0); MEAN CORPUSCULAR VOLUME 83 fl (80-97); MONOCYTES % (AUTO) 8.4 % (3-13); PLATELET COUNT 232 10^3/uL (150-450); RED BLOOD COUNT 5.14 10^6/uL (4.35-5.55); RED CELL DISTRIBUTION WIDTH 15.3 % (11.5-14.0); SEGMENTED NEUTROPHILS % (AUTO) 60.5 % (42-78); TOTAL CELLS COUNTED % (AUTO) 100 %; WHITE BLOOD COUNT 8.4 10^3/uL (4.0-10.5)
[2019-11-11 12:21] LABS: ALBUMIN 3.9 g/dL (3.5-5.0); ALKALINE PHOSPHATASE 108 U/L (38-126); ANION GAP 6 (5-19); ASPARTATE AMINO TRANSFERASE 29 U/L (17-59); BILIRUBIN,TOTAL 0.7 mg/dL (0.2-1.3); BLOOD UREA NITROGEN 10 mg/dL (7-20); CALCIUM 8.7 mg/dL (8.4-10.2); CARBON DIOXIDE 33 mmol/L (22-30); CHLORIDE 101 mmol/L (98-107); GLUCOSE 122 mg/dL (75-110); POTASSIUM 4.1 mmol/L (3.6-5.0); TOTAL PROTEIN 8.3 g/dL (6.3-8.2)
[2019-11-11 12:34] LABS: TROPONIN I 0.039 ng/mL
--- NOTE | 2019-11-11 13:37 | ER Document Report ---
ED General - General Chief Complaint: Leg Pain Stated Complaint: TROUBLE BREATHING Time Seen by Provider: 11/11/19 10:33 Mode of Arrival: Ambulatory Information source: Patient TRAVEL OUTSIDE OF THE [place] IN LAST 30 DAYS: No - HPI Notes: Patient presents complaining of diffuse joint pain. Also states he has felt short of breath. He states he has had a brief dry cough. He states this been going on for 3 to 4 days. He states he has no known coronavirus exposures. No known fevers. He states he has not left the house in several months. He states the last time he left was in August to go to his mother's . He states he recently did resume smoking because he has been stressed and anxious. He states he lives alone. The joint pain is diffuse. It radiates throughout his body. It is intermittent. It is worse with movement and better with rest. It is moderate in intensity. He states he does have a history of a previous DVT and PE but is never taken blood thinners because he could not afford them. - Related Data Allergies/Adverse Reactions: No Known Allergies Allergy (Verified 11/11/19 12:46) Past Medical History - General Information source: Patient - Social History Smoking Status: Current Every Day Smoker Chew tobacco use (# tins/day): No Frequency of alcohol use: None Drug Abuse: None Family History: DM, Hyperlipidemia, Hypertension, Thyroid Disfunction Patient has suicidal ideation: No Patient has homicidal ideation: No - Past Medical History Cardiac Medical History: Reports: Hx Hypercholesterolemia, Hx Hypertension Denies: Hx Atrial Fibrillation, Hx Coronary Artery Disease, Hx DVT, Hx Heart Attack, Hx Pulmonary Embolism Pulmonary Medical History: Reports: Hx COPD, Hx Sleep Apnea Denies: Hx Asthma Neurological Medical History: Denies: Hx Seizures Endocrine Medical History: Reports: Hx Diabetes Mellitus Type 2. Denies: Hx Diabetes Mellitus Type 1, Hx Hyperthyroidism, Hx Hypothyroidism Renal/ Medical History: Denies: Hx Peritoneal Dialysis GI Medical History: Denies: Hx Cirrhosis, Hx Hepatitis Musculoskeletal Medical History: Denies Hx Arthritis, Reports Hx Gout Skin Medical History: Denies Hx Eczema, Denies Hx Psoriasis Psychiatric Medical History: Reports: Hx Anxiety, Hx Depression Infectious Medical History: Denies: Hx Hepatitis Past Surgical History: Reports: Hx Abdominal Surgery, Hx Orthopedic Surgery - Rt knee - Immunizations Hx Diphtheria, Pertussis, Tetanus Vaccination: Yes Review of Systems - Review of Systems Constitutional: Malaise. denies: Fever Cardiovascular: denies: Chest pain, Palpitations Respiratory: Cough, Short of breath -: Yes All other systems reviewed and negative Physical Exam - Vital signs Interpretation: Normal - General General appearance: Appears well, Alert - HEENT Head: Normocephalic, Atraumatic Eyes: Normal Pupils: PERRL - Respiratory Respiratory status: No respiratory distress Chest status: Nontender Breath sounds: Decreased air movement Chest palpation: Normal - Cardiovascular Rhythm: Regular Heart sounds: Normal auscultation Murmur: No - Abdominal Inspection: Normal Distension: No distension Bowel sounds: Normal Tenderness: Nontender Organomegaly: No organomegaly - Back Back: Normal, Nontender - Extremities General upper extremity: Normal inspection, Nontender, Normal color, Normal ROM, Normal temperature General lower extremity: Normal inspection, Nontender, Normal color, Normal ROM, Normal temperature, Normal weight bearing. No: Gale's sign - Neurological Neuro grossly intact: Yes Cognition: Normal Orientation: AAOx4 Lohn Coma Scale Eye Opening: Spontaneous Noreen Coma Scale Verbal: Oriented Lohn Coma Scale Motor: Obeys Commands Lohn Coma Scale Total: 15 Speech: Normal Motor strength normal: LUE, RUE, LLE, RLE Sensory: Normal - Psychological Associated symptoms: Normal affect, Normal mood - Skin Skin Temperature: Warm Skin Moisture: Dry Skin Color: Normal Course - Re-evaluation Re-evalutation: 11/11/19 14:03 Patient presents with cough shortness of breath as well as diffuse body aches and joint swelling. Patient states he has not traveled since August. His coronavirus screen would appear to be negative. However patient does have some symptoms consistent with possible coronavirus I recommended that he quarantine for 14 days. I also treat the patient with some pain medicine for the joint swelling. There is no evidence of heart failure or other cause such as infection that would require treatment as an outpatient. - Laboratory Result Diagrams: 11/11/19 11:45 11/11/19 11:45 Laboratory results interpreted by me: 11/11/19 11/11/19 11:45 11:45 RDW 15.3 H Carbon Dioxide 33 H Glucose 122 H Total Protein 8.3 H - Diagnostic Test Radiology reviewed: Image reviewed, Reports reviewed - EKG Interpretation by Me EKG shows normal: Sinus rhythm Rate: Normal - 93 Rhythm: NSR Voltage: Increased voltage Discharge - Discharge Clinical Impression: Myalgia Dyspnea Qualifiers: Dyspnea type: other forms of dyspnea Qualified Code(s): R06.09 - Other forms of dyspnea Condition: Stable Disposition: HOME, SELF-CARE Instructions: Dyspnea, Nonspecific ([facility]) Additional Instructions: Please call your primary doctor as soon as possible to arrange follow-up Prescriptions: Hydrocodone/Acetaminophen [Nicholson 5-325 mg Tablet] 1 tab PO Q6 PRN 3 Days #12 tablet PRN Reason: Forms: Smoking Cessation Education Referrals: [facility] [Provider Group] - Follow up in 3-5 days
--- NOTE | 2019-11-11 13:55 | RADIOLOGY REPORT (SQ) ---
EXAM DESCRIPTION: CTA CHEST IMAGES COMPLETED DATE/TIME: 11/11/2019 1:40 pm REASON FOR STUDY: sob/hx pe COMPARISON: Chest x-ray done earlier the same day. CT chest dated 01/24/2019 TECHNIQUE: CT scan of the chest performed using helical scanning technique with dynamic intravenous contrast injection. Images reviewed with lung, soft tissue and bone windows. Reconstructed coronal and sagittal MPR images reviewed. Additional 3 dimensional post-processing performed to develop Maximal Intensity Projection images (TX P). All images stored on PACS. All CT scanners at this facility use dose modulation, iterative reconstruction, and/or weight based d osing when appropriate to reduce radiation dose to as low as reasonably achievable (ALARA). [facility]: Dose Right [facility]: CareDose [facility]: Dose Right [facility]: Teradose 4D [facility]: [employer] CONTRAST TYPE AND DOSE: contrast/concentration: Isovue 350.00 mg/ml; Total Contrast Delivered: 65.0 ml; Total Saline Delivered: 80.0 ml Contrast bolus optimized for the pulmonary arteries. Not diagnostic for the aorta. RENAL FUNCTION: None required. The patient is less than 50 years old. RADIATION DOSE: CT Rad equipment meets quality standard of care and radiation dose reduction techniq ues were employed. CTDIvol: 15.7 - 22.5 mGy. DLP: 677 mGy-cm. . LIMITATIONS: None. FINDINGS: LUNGS AND PLEURA: Minimal atelectasis in the left base. No consolidation. AORTA AND GREAT VESSELS: No aneurysm. Contrast bolus not optimized for the aorta. HEART: No pericardial effusion. No significant coronary artery calcifications. PULMONARY ARTERIES: No emboli visualized in the main pulmonary arteries or the segmental branches. HILAR AND MEDIASTINAL STRUCTURES: No identified masses or abnormal nodes. HARDWARE: None in the chest. UPPER ABDOMEN: No significant findings. Limited exam. THYROID AND OTHER SOFT TISSUES: Thyroid is prominent size especially the left lobe. Possible thyroid nodules. Limited evaluation due to timing of bolus and artifact due to body habitus. BONES: No acute or significant finding. 3D MIPS: Confirm above findings. OTHER: No other significant finding. IMPRESSION: No pulmonary emboli. Minimal left basilar atelectasis. COMMENT: Quality ID # [id number]: Final reports with documentation of one or more dose reduction techniques (e.g., Automated exposure control, adjustment of the mA and/or kV according to patient size, use of iterative reconstruction technique) TECHNICAL DOCUMENTATION: JOB ID: [id number] 2010 [employer]- All Rights Reserved Reading location - IP/workstation name: [email or web address]
--- NOTE | 2019-11-11 13:56 | RADIOLOGY REPORT (SQ) ---
EXAM DESCRIPTION: VENOUS UNILATERAL LOWER IMAGES COMPLETED DATE/TIME: 11/11/2019 1:45 pm REASON FOR STUDY: pain/swelling/left side COMPARISON: None. TECHNIQUE: Dynamic and static valdes scale and color images acquired of the left leg venous system. Se lected spectral images acquired with additional compression and augmentation maneuvers. The contralat eral common femoral vein and saphenofemoral junction were also imaged. Images stored on PACS. LIMITATIONS: None. FINDINGS: COMMON FEMORAL: Normal phasicity, compression and augmentation. No visualized echogenic ma terial on valdes scale. No defects on color images. FEMORAL: Normal compression and augmentation. No visualized echogenic material on valdes scale. No defe cts on color images. POPLITEAL: Normal compression, augmentation. No visualized echogenic material on valdes scale. No defec ts on color images. CALF VESSELS: Normal compression, augmentation. No visualized echogenic material on valdes scale. No de fects on color images. GSV and SSV: Normal compression, augmentation. No visualized echogenic material on valdes scale. No def ects on color images. ANY DEEP VENOUS INSUFFICIENCY: Not evaluated. ANY EVIDENCE OF POPLITEAL CYST: No. OTHER: No other significant finding. CONTRALATERAL COMMON FEMORAL VEIN AND SAPHENOFEMORAL JUNCTION: Normal phasicity, compression and augmentation. No visualized echogenic material on valdes scale. No de fects on color images. IMPRESSION: NO EVIDENCE DVT OR SVT IN THE LEFT LEG. COMMENT: This report was called to TAMMIE JONAS MD at13:49 on 11/11/2019. Preliminary report was provided by the radioisotope technologist. TECHNICAL DOCUMENTATION: JOB ID: [id number] 2010 [employer]- All Rights Reserved Reading location - IP/workstation name: [email or web address]
[2019-11-11 15:01] VITALS: BP 187/125
--- NOTE | 2019-11-11 21:59 | EKG REPORT ---
SEVERITY:- BORDERLINE ECG - SINUS RHYTHM BORDERLINE T ABNORMALITIES, INFERIOR LEADS BORDERLINE PROLONGED QT INTERVAL : Confirmed by: Lesley Shipman MD 11-Nov-2019 21:58:34
== END 2019-11-11 15:01 | disposition home or self-care (01) ==
LOC: ER 10:17
DX: M79.10 Myalgia, unspecified site (principal); R06.09 Other forms of dyspnea; F17.200 Nicotine dependence, unspecified, uncomplicated; E78.00 Pure hypercholesterolemia, unspecified; I10 Essential (primary) hypertension; J44.9 Chronic obstructive pulmonary disease, unspecified; Z86.711 Personal history of pulmonary embolism; Z86.718 Personal history of other venous thrombosis and embolism
CPT/HCPCS: 36415; 71045; 71275; 80053; 83880; 84484; 85025; 93005; 93010; 93971; 99285

== ENCOUNTER 2019-11-18 10:32 | Emergency (ER) | payer OTHER ==
[2019-11-18 11:11] LABS: ABSOLUTE BASOPHILS # (AUTO) 0.1 10^3/uL (0.0-0.2); ABSOLUTE EOSINOPHILS # (AUTO) 0.4 10^3/uL (0.0-0.6); ABSOLUTE LYMPHOCYTES (AUTO) 2.8 10^3/uL (0.5-4.7); ABSOLUTE MONOCYTES (AUTO) 0.7 10^3/uL (0.1-1.4); ABSOLUTE NEUT (AUTO) 4.5 10^3/uL (1.7-8.2); BASOPHILS % (AUTO) 0.7 % (0-2); EOSINOPHILS % (AUTO) 4.7 % (0-6); HEMATOCRIT 46.1 % (37.9-51.0); HEMOGLOBIN 15.9 g/dL (13.5-17.0); MEAN CORPUSCULAR HEMOGLOBIN 28.4 pg (27.0-33.4); MEAN CORPUSCULAR HGB CONC 34.4 g/dL (32.0-36.0); MEAN CORPUSCULAR VOLUME 83 fl (80-97); MONOCYTES % (AUTO) 8.8 % (3-13); PLATELET COUNT 258 10^3/uL (150-450); RED BLOOD COUNT 5.59 10^6/uL (4.35-5.55); RED CELL DISTRIBUTION WIDTH 15.2 % (11.5-14.0); SEGMENTED NEUTROPHILS % (AUTO) 52.8 % (42-78); TOTAL CELLS COUNTED % (AUTO) 100 %; WHITE BLOOD COUNT 8.5 10^3/uL (4.0-10.5)
[2019-11-18 11:37] LABS: ALBUMIN 3.9 g/dL (3.5-5.0); ALKALINE PHOSPHATASE 124 U/L (38-126); ANION GAP 6 (5-19); ASPARTATE AMINO TRANSFERASE 32 U/L (17-59); BILIRUBIN,TOTAL 0.6 mg/dL (0.2-1.3); BLOOD UREA NITROGEN 14 mg/dL (7-20); CALCIUM 9.1 mg/dL (8.4-10.2); CARBON DIOXIDE 32 mmol/L (22-30); CHLORIDE 101 mmol/L (98-107); GLUCOSE 148 mg/dL (75-110); POTASSIUM 4.2 mmol/L (3.6-5.0); TOTAL PROTEIN 8.2 g/dL (6.3-8.2)
--- NOTE | 2019-11-18 11:38 | RADIOLOGY REPORT (SQ) ---
EXAM DESCRIPTION: CHEST SINGLE VIEW IMAGES COMPLETED DATE/TIME: 11/18/2019 11:28 am REASON FOR STUDY: Shortness of breath COMPARISON: 11/11/2019 EXAM PARAMETERS: NUMBER OF VIEWS: One view. TECHNIQUE: Single frontal radiographic view of the chest acquired. RADIATION DOSE: NA LIMITATIONS: None. FINDINGS: LUNGS AND PLEURA: No consolidation. No definite ground-glass opacities. No effusions or pneumothorax. MEDIASTINUM AND HILAR STRUCTURES: No masses. Contour normal. HEART AND VASCULAR STRUCTURES: Heart normal in size. Normal vasculature. BONES: No acute findings. HARDWARE: None in the chest. OTHER: No other significant finding. IMPRESSION: NO ACUTE RADIOGRAPHIC FINDING IN THE CHEST. TECHNICAL DOCUMENTATION: JOB ID: [id number] 2010 [employer]- All Rights Reserved Reading location - IP/workstation name: [email or web address]
[2019-11-18] MEDS ORDERED: METOPROLOL TARTRATE PF/INJ 5 MG/5 ML SDV IV ONE (11:56)
[2019-11-18 12:12] LABS: TROPONIN I 0.026 ng/mL
--- NOTE | 2019-11-18 12:24 | RADIOLOGY REPORT (SQ) ---
EXAM DESCRIPTION: CT HEAD WITHOUT IMAGES COMPLETED DATE/TIME: 11/18/2019 12:15 pm REASON FOR STUDY: headache; HTN COMPARISON: 09/25/2016 TECHNIQUE: Axial images acquired through the brain without intravenous contrast. Images reviewed wi th bone, brain and subdural windows. Additional sagittal and coronal reconstructions were generated. Images stored on PACS. All CT scanners at this facility use dose modulation, iterative reconstruction, and/or weight based d osing when appropriate to reduce radiation dose to as low as reasonably achievable (ALARA). [facility]: Dose Right [facility]: CareDose [facility]: Dose Right [facility]: Teradose 4D [facility]: Profitero RADIATION DOSE: CT Rad equipment meets quality standard of care and radiation dose reduction techniq ues were employed. CTDIvol: 53.2 mGy. DLP: 1070 mGy-cm. mGy. LIMITATIONS: None. FINDINGS: VENTRICLES: Prominent. CEREBRUM: No masses. No hemorrhage. No midline shift. Areas of low density in the white matter mos t likely due to chronic micro-vascular ischemic change. No evidence for acute infarction. CEREBELLUM: No masses. No hemorrhage. No alteration of density. No evidence for acute infarction. EXTRAAXIAL SPACES: Mild age-related involutional change. No fluid collections. No masses. ORBITS AND GLOBE: No intra- or extraconal masses. Normal contour of globe without masses. CALVARIUM: No fracture. PARANASAL SINUSES: Complete opacification of the left aspect of the sphenoid sinus. SOFT TISSUES: No mass or hematoma. OTHER: No other significant finding. IMPRESSION: MILD CHRONIC CHANGES OF ATROPHY AND MICROVASCULAR ISCHEMIA. NO ACUTE PROCESS. EVIDENCE OF ACUTE STROKE: NO. TECHNICAL DOCUMENTATION: JOB ID: [id number] Quality ID # [id number]: Final reports with documentation of one or more dose reduction techniques (e.g., Au tomated exposure control, adjustment of the mA and/or kV according to patient size, use of iterative reconstruction technique) 2010 [employer]- All Rights Reserved Reading location - IP/workstation name: [email or web address]
--- NOTE | 2019-11-18 12:27 | ER Document Report ---
ED Respiratory Problem - General Chief Complaint: Breathing Difficulty Stated Complaint: DIFFICULTY BREATHING Time Seen by Provider: 11/18/19 10:40 Primary Care Provider: [facility] [Provider Group] - Follow up in [address] [facility] [Provider Group] - Follow up in 1 week Notes: Patient is a 44-year-old male who presents emergency department with a chief complaint of a headache and difficulty breathing. Patient states that he has been short of breath since he was seen here the other day. Patient admits to continuing smoking, even after his visit last week. Patient states that he just does not feel quite right and he has a headache. Patient is taking his blood pressure medication as prescribed. States he is taking his inhalers as prescribed. TRAVEL OUTSIDE OF THE [place] IN LAST 30 DAYS: No - Related Data Allergies/Adverse Reactions: No Known Allergies Allergy (Verified 11/11/19 12:46) Past Medical History - General Information source: Patient - Social History Smoking Status: Current Every Day Smoker Family History: DM, Hyperlipidemia, Hypertension, Thyroid Disfunction Patient has suicidal ideation: No Patient has homicidal ideation: No - Past Medical History Cardiac Medical History: Reports: Hx Hypercholesterolemia, Hx Hypertension Denies: Hx Atrial Fibrillation, Hx Coronary Artery Disease, Hx DVT, Hx Heart Attack, Hx Pulmonary Embolism Pulmonary Medical History: Reports: Hx COPD, Hx Sleep Apnea Denies: Hx Asthma Neurological Medical History: Denies: Hx Seizures Endocrine Medical History: Reports: Hx Diabetes Mellitus Type 2. Denies: Hx Diabetes Mellitus Type 1, Hx Hyperthyroidism, Hx Hypothyroidism Renal/ Medical History: Denies: Hx Peritoneal Dialysis GI Medical History: Denies: Hx Cirrhosis, Hx Hepatitis Musculoskeletal Medical History: Denies Hx Arthritis, Reports Hx Gout Skin Medical History: Denies Hx Eczema, Denies Hx Psoriasis Psychiatric Medical History: Reports: Hx Anxiety, Hx Depression Infectious Medical History: Denies: Hx Hepatitis Past Surgical History: Reports: Hx Abdominal Surgery, Hx Orthopedic Surgery - Rt knee - Immunizations Hx Diphtheria, Pertussis, Tetanus Vaccination: Yes Review of Systems - Review of Systems Notes: REVIEW OF SYSTEMS: CONSTITUTIONAL : Denies recent illness. Denies recent unintentional weight loss. Denies fever, chills, or sweats. EENT: Denies eye, ear, throat, or mouth pain, discharge, or symptoms. Denies nasal or sinus congestion. CARDIOVASCULAR: Denies chest pain. RESPIRATORY: See HPI. GASTROINTESTINAL: Denies nausea, vomiting, and diarrhea. Denies abdominal pain. Denies constipation. GENITOURINARY: Denies difficulty urinating, burning, blood in urine, urgency or frequency. MUSCULOSKELETAL: Denies neck and back pain. Denies joint pain or swelling. SKIN: Denies rash, itchiness, or lesions HEMATOLOGIC : Denies easy bruising or bleeding. LYMPHATIC: Denies swollen, painful, enlarged glands. NEUROLOGICAL: Denies no numbness or tingling denies weakness. Denies altered mental status. Denies alteration in speech. See HPI. PSYCHIATRIC: Denies stress, anxiety, alteration in sleep patterns, or depression. All other systems reviewed and negative. Physical Exam - Vital signs Vitals: Temp Pulse Resp BP Pulse Ox 98.3 F 105 H 18 155/105 H 94 11/18/19 10:37 11/18/19 10:37 11/18/19 10:37 11/18/19 10:37 11/18/19 10:37 - Notes Notes: PHYSICAL EXAMINATION: GENERAL: Appears well, healthy, well-nourished, no acute distress. HEAD: Normocephalic, atraumatic. EYES: PERRL, conjunctiva normal, all extraocular movements intact, sclera nonicteric ENT: Moist mucous membranes. NECK: Supple, no noticeable swelling, redness, rash. Normal range of motion. LUNGS: Equal breath sounds bilaterally and clear to auscultation. No wheezes rales or rhonchi. CARDIOVASCULAR: S1-S2, tachycardic, regular rhythm. Radial pulses 2+, normal. ABDOMEN: Normoactive bowel sounds. Soft, nontender, no guarding, no rebound tenderness, and no masses palpated. EXTREMITIES: Normal strength and range of motion, no pitting or edema. No cyanosis. NEUROLOGICAL: Moves all extremities upon command. Strength 5/5 in all extremities. PSYCH: Normal mood, normal affect. SKIN: Warm, dry. No rash, lesions, ulcerations noted. Normal skin turgor. Course - Re-evaluation Re-evalutation: 11/18/19 14:15 CT of the head is unremarkable other than chronic changes. Chest x-ray is normal.. The emergency department that patient's hematology has not changed since a week ago. His chemistries are also very similar. His magnesium is 1.3. Patient is receiving magnesium for replacement. Patient states that he is supposed be on magnesium daily. His troponin is indeterminant, as it was last week. Due to the current COVID-19 pandemic, I highly recommended that the patient get tested for COVID-19. He is in agreement with this plan. Patient has been tested. He agrees to quarantine. I will also start the patient on a course of steroids. He is in agreement with this plan. Follow-up precautions were given. Verbal discharge instructions were given to the patient. They verbalized understanding. They are stable for discharge. - Vital Signs Vital signs: Temp Pulse Resp BP Pulse Ox 98.6 F 105 H 5 L 144/97 H 93 11/18/19 14:31 11/18/19 10:37 11/18/19 14:31 11/18/19 14:31 11/18/19 14:31 - Laboratory Result Diagrams: 11/18/19 10:56 11/18/19 10:56 Laboratory results interpreted by me: 11/18/19 11/18/19 10:56 10:56 RBC 5.59 H RDW 15.2 H Carbon Dioxide 32 H Glucose 148 H Magnesium 1.3 L Discharge - Discharge Clinical Impression: Essential hypertension Headache Qualifiers: Headache type: unspecified Headache chronicity pattern: unspecified pattern Intractability: not intractable Qualified Code(s): R51 - Headache COPD (chronic obstructive pulmonary disease) Qualifiers: COPD type: unspecified COPD Qualified Code(s): J44.9 - Chronic obstructive pulmonary disease, unspecified Condition: Stable Disposition: HOME, SELF-CARE Additional Instructions: You are seen today in the emergency department for shortness of breath, headache, and generally not feeling well. You are being tested for COVID 19. Please stay in quarantine for the next 14 days, or until you are results come back. You are also being started on metoprolol, another blood pressure medication. Take as prescribed. Please follow-up with 1 of the clinics below when you can. You are also being placed on prednisone, steroid. If you have worsening symptoms, please return to the emergency department. Prescriptions: Prednisone [Deltasone 20 mg Tablet] 3 tab PO DAILY 5 Days #15 tablet Metoprolol Tartrate [Lopressor 25 mg Tablet] 25 mg PO DAILY #30 tab Magnesium Oxide [Magnesium Oxide 400] 240 mg PO QID #90 [email or web address] Referrals: [facility] [Provider Group] - Follow up in 1 week [facility] [Provider Group] - Follow up in 1 week
[2019-11-18] MEDS ORDERED: ACETAMINOPHEN 325 MG TABLET PO ONE (13:04)
[2019-11-18] MEDS: MAGNESIUM SULFATE/D5W 1 GM/100 ML RTUPB IV SCH ×2 (14:00→14:13)
[2019-11-18 14:37] VITALS: BP 144/97
--- NOTE | 2019-11-18 17:43 | EKG REPORT ---
SEVERITY:- ABNORMAL ECG - SINUS TACHYCARDIA VENTRICULAR PREMATURE COMPLEX BORDERLINE LEFT AXIS DEVIATION ABNRM R PROG, CONSIDER ASMI OR LEAD PLACEMENT BORDERLINE T ABNORMALITIES, INFERIOR LEADS BORDERLINE PROLONGED QT INTERVAL : Confirmed by: Daniel Herndon MD 18-Nov-2019 17:41:51
== END 2019-11-18 14:42 | disposition home or self-care (01) ==
LOC: ER 10:32
DX: Z20.828 Contact with and (suspected) exposure to other viral communicable diseases (principal); J44.9 Chronic obstructive pulmonary disease, unspecified; R51 Headache; I10 Essential (primary) hypertension; F17.200 Nicotine dependence, unspecified, uncomplicated; E78.00 Pure hypercholesterolemia, unspecified; E11.9 Type 2 diabetes mellitus without complications
CPT/HCPCS: 93005; 99285; 96375; 96365; 36415; 83735; 85025; 87635; 80053; 84484; 83880; 71045; 70450; 93010; J3490; J3475

== ENCOUNTER 2020-02-20 09:44 | Emergency (ER) | payer SELFPAY ==
--- NOTE | 2020-02-20 10:15 | ER Document Report ---
ED Medical Screen (RME) - General Chief Complaint: Pain Stated Complaint: PAIN ALL OVER Time Seen by Provider: 02/20/20 10:09 Mode of Arrival: Ambulatory Information source: Patient Notes: 44-year-old male presented to ED for complaint of lower abdominal pain going around to the back for the last week. States he has been coughing for at least a week all joints hurt hurts his body all over no matter how he lays his left foot and heel hurt. He states he does not know what is from his not been around anybody that sick. He is a former smoker drinks once a week to month drink last week. I have greeted and performed a rapid initial assessment of this patient. A comprehensive ED assessment and evaluation of the patient, analysis of test results and completion of medical decision making process will be conducted by an additional ED providers. TRAVEL OUTSIDE OF THE [place] IN LAST 30 DAYS: No - Related Data Allergies/Adverse Reactions: No Known Allergies Allergy (Verified 11/11/19 12:46) Past Medical History - Past Medical History Cardiac Medical History: Reports: Hx Hypercholesterolemia, Hx Hypertension Denies: Hx Atrial Fibrillation, Hx Coronary Artery Disease, Hx DVT, Hx Heart Attack, Hx Pulmonary Embolism Pulmonary Medical History: Reports: Hx COPD, Hx Sleep Apnea Denies: Hx Asthma Neurological Medical History: Denies: Hx Seizures Endocrine Medical History: Reports: Hx Diabetes Mellitus Type 2. Denies: Hx Diabetes Mellitus Type 1, Hx Hyperthyroidism, Hx Hypothyroidism Renal/ Medical History: Denies: Hx Peritoneal Dialysis GI Medical History: Denies: Hx Cirrhosis, Hx Hepatitis Musculoskeltal Medical History: Denies Hx Arthritis, Reports Hx Gout Skin Medical History: Denies Hx Eczema, Denies Hx Psoriasis Psychiatric Medical History: Reports: Hx Anxiety, Hx Depression Infectious Medical History: Denies: Hx Hepatitis Past Surgical History: Reports: Hx Abdominal Surgery, Hx Orthopedic Surgery - Rt knee - Immunizations Hx Diphtheria, Pertussis, Tetanus Vaccination: Yes Physical Exam - Vital signs Vitals: Temp Pulse Resp BP Pulse Ox 98.9 F 100 24 H 162/102 H 99 02/20/20 09:48 02/20/20 09:48 02/20/20 09:48 02/20/20 09:48 02/20/20 09:48 Course - Vital Signs Vital signs: Temp Pulse Resp BP Pulse Ox 98.9 F 100 24 H 162/102 H 99 02/20/20 09:48 02/20/20 09:48 02/20/20 09:48 02/20/20 09:48 02/20/20 09:48
--- NOTE | 2020-02-20 10:56 | RADIOLOGY REPORT (SQ) ---
EXAM DESCRIPTION: CHEST SINGLE VIEW IMAGES COMPLETED DATE/TIME: 02/20/2020 10:37 am REASON FOR STUDY: Cough body aches joint pain abdominal pain back pa COMPARISON: 11/18/2019 EXAM PARAMETERS: NUMBER OF VIEWS: One view. TECHNIQUE: Single frontal radiographic view of the chest acquired. RADIATION DOSE: NA LIMITATIONS: None. FINDINGS: LUNGS AND PLEURA: No opacities, masses or pneumothorax. No pleural effusion. Stable linea r scarring in the left base. MEDIASTINUM AND HILAR STRUCTURES: No masses. Contour normal. HEART AND VASCULAR STRUCTURES: Heart normal in size. Normal vasculature. BONES: No acute findings. HARDWARE: None in the chest. OTHER: No other significant finding. IMPRESSION: NO ACUTE RADIOGRAPHIC FINDING IN THE CHEST. TECHNICAL DOCUMENTATION: JOB ID: [id number] 2010 [employer]- All Rights Reserved Reading location - IP/workstation name: [email or web address]
--- NOTE | 2020-02-20 10:56 | RADIOLOGY REPORT (SQ) ---
EXAM DESCRIPTION: FOOT LEFT COMPLETE IMAGES COMPLETED DATE/TIME: 02/20/2020 10:37 am REASON FOR STUDY: Planes left foot pain mostly his heel COMPARISON: 09/26/2017 NUMBER OF VIEWS: Three views. TECHNIQUE: AP, lateral and oblique radiographic images acquired of the left foot. LIMITATIONS: None. FINDINGS: MINERALIZATION: Normal. BONES: No acute fracture or dislocation. No worrisome bone lesions. JOINTS: No effusions. SOFT TISSUES: Mild soft tissue swelling throughout the foot. OTHER: No other significant finding. IMPRESSION: Mild soft tissue edema. No acute bony abnormalities. TECHNICAL DOCUMENTATION: JOB ID: [id number] 2010 [employer]- All Rights Reserved Reading location - IP/workstation name: [email or web address]
[2020-02-20 11:12] LABS: ABSOLUTE BASOPHILS # (AUTO) 0.1 10^3/uL (0.0-0.2); ABSOLUTE EOSINOPHILS # (AUTO) 0.2 10^3/uL (0.0-0.6); ABSOLUTE LYMPHOCYTES (AUTO) 1.9 10^3/uL (0.5-4.7); ABSOLUTE MONOCYTES (AUTO) 0.8 10^3/uL (0.1-1.4); ABSOLUTE NEUT (AUTO) 5.5 10^3/uL (1.7-8.2); BASOPHILS % (AUTO) 1.2 % (0-2); EOSINOPHILS % (AUTO) 2.1 % (0-6); HEMATOCRIT 42.7 % (37.9-51.0); LYMPHOCYTES % (AUTO) 22.2 % (13-45); MEAN CORPUSCULAR HEMOGLOBIN 29.3 pg (27.0-33.4); MEAN CORPUSCULAR HGB CONC 35.1 g/dL (32.0-36.0); MEAN CORPUSCULAR VOLUME 84 fl (80-97); MONOCYTES % (AUTO) 8.9 % (3-13); PLATELET COUNT 223 10^3/uL (150-450); RED BLOOD COUNT 5.11 10^6/uL (4.35-5.55); RED CELL DISTRIBUTION WIDTH 15.3 % (11.5-14.0); SEGMENTED NEUTROPHILS % (AUTO) 65.6 % (42-78); TOTAL CELLS COUNTED % (AUTO) 100 %; WHITE BLOOD COUNT 8.4 10^3/uL (4.0-10.5)
[2020-02-20] MEDS ORDERED: DEXAMETHASONE SOD PHOS INJ 10 MG/1 ML VIAL IV ONE (11:25)
[2020-02-20] MEDS ORDERED: MORPHINE SULFATE 10 MG/ML INJ IV ONE (11:25)
[2020-02-20] MEDS ORDERED: KETOROLAC TROMETHAMINE INJ/PF 30 MG/1 ML SDV IV ONE (11:25)
--- NOTE | 2020-02-20 11:29 | ER Document Report ---
ED General - General Chief Complaint: Pain All Over Stated Complaint: PAIN ALL OVER Time Seen by Provider: 02/20/20 10:09 Mode of Arrival: Ambulatory Notes: This 44 man presents to the emergency department with complaint of pain and hurting all over. He has had history of gout in the past involving the left foot. He denies a known fever or cough. He does complain of fatigue, neck pain, bilateral shoulder pain and aching pain in his back. He has a history of diabetes mellitus, hypertension, and poor medical follow-up due to lack of health insurance. TRAVEL OUTSIDE OF THE [place] IN LAST 30 DAYS: No - Related Data Allergies/Adverse Reactions: No Known Allergies Allergy (Verified 11/11/19 12:46) Home Medications: HCTZ, Allopurinol, Metformin, Colchicine, Hydrocodone Past Medical History - General Information source: Patient - Social History Smoking Status: Unknown if Ever Smoked Family History: Reviewed & Not Pertinent, DM, Hyperlipidemia, Hypertension, Thyroid Disfunction - Past Medical History Cardiac Medical History: Reports: Hx Hypercholesterolemia, Hx Hypertension Denies: Hx Atrial Fibrillation, Hx Coronary Artery Disease, Hx DVT, Hx Heart Attack, Hx Pulmonary Embolism Pulmonary Medical History: Reports: Hx COPD, Hx Sleep Apnea Denies: Hx Asthma Neurological Medical History: Denies: Hx Seizures Endocrine Medical History: Reports: Hx Diabetes Mellitus Type 2. Denies: Hx Diabetes Mellitus Type 1, Hx Hyperthyroidism, Hx Hypothyroidism Renal/ Medical History: Denies: Hx Peritoneal Dialysis GI Medical History: Denies: Hx Cirrhosis, Hx Hepatitis Musculoskeletal Medical History: Denies Hx Arthritis, Reports Hx Gout Skin Medical History: Denies Hx Eczema, Denies Hx Psoriasis Psychiatric Medical History: Reports: Hx Anxiety, Hx Depression Infectious Medical History: Denies: Hx Hepatitis Past Surgical History: Reports: Hx Abdominal Surgery, Hx Orthopedic Surgery - Rt knee - Immunizations Hx Diphtheria, Pertussis, Tetanus Vaccination: Yes Review of Systems - Review of Systems Notes: Constitutional: + Fatigue HENT: Negative for sore throat. Eyes: Negative for visual changes. Cardiovascular: Negative for chest pain. Respiratory: Negative for shortness of breath. Gastrointestinal: Negative for abdominal pain, vomiting or diarrhea. Genitourinary: Negative for dysuria. Musculoskeletal: + Bilateral shoulder pain, + neck pain, + lower back pain. Skin: Negative for rash. Neurological: Negative for headaches, weakness or numbness. 10 point ROS negative except as marked above and in HPI. Physical Exam - Vital signs Vitals: Temp Pulse Resp BP Pulse Ox 98.9 F 100 24 H 162/102 H 99 02/20/20 09:48 02/20/20 09:48 02/20/20 09:48 02/20/20 09:48 02/20/20 09:48 - Notes Notes: PHYSICAL EXAMINATION: Physical Exam: General: Overweight 44-year-old man in moderate distress secondary to diffuse pain. HEENT: NC/AT, pupils equal round and reactive to light, MM moist,nares clear, oropharynx clear, airway patent Neck: supple, no adenopathy, no masses. Decreased extension and flexion with tenderness in the cervical spine region. Lungs: clear, no wheezing, no rales no rhonchi CVS: Regular rate and rhythm no murmur gallop or rub Abdomen: Soft, active, nontender, no masses, no hepatosplenomegaly Ext: + Bilateral shoulder pain with decreased range of motion, + lower back tenderness to palpation. Neuro: Alert and responsive, moving all 4 extremities on command, cranial nerves intact, no focal findings Skin: Intact no open lesions, no rash PSYCH: Normal mood, normal affect. Course - Re-evaluation Re-evalutation: 02/20/20 13:32 Chest x-ray was performed as well as x-ray of the left foot, no acute findings were noted on either. Patient was given medications for pain with some improvement of his symptoms. A coronavirus test is being performed. He is encouraged to take the medications as prescribed and to follow-up with his primary care doctor as needed. Patient presents with fatigue and body aches. Evaluation for influenza and strep are negative. Given his presentation, coronavirus screening test is being performed. I have instructed the patient that he will need to self isolate until he received a report of the test results. The patient acknowledges that he has been tested for COVID-19, and will self isolate at home until he receives results. May use Naprosyn and Tylenol for aches and pains. He is also instructed to return to the hospital if his symptoms are worsening or development of shortness of breath. - Vital Signs Vital signs: Temp Pulse Resp BP Pulse Ox 98.9 F 100 24 H 162/102 H 99 02/20/20 09:48 02/20/20 09:48 07/17/20 09:48 02/20/20 09:48 02/20/20 09:48 - Laboratory Result Diagrams: 02/20/20 10:50 02/20/20 10:50 Laboratory results interpreted by me: 02/20/20 02/20/20 02/20/20 10:50 10:50 10:50 RDW 15.3 H ESR 33 H Carbon Dioxide 31 H C-Reactive Protein Total Protein 8.5 H Urine Protein Urine Blood Urine Urobilinogen Ur Leukocyte Esterase 02/20/20 02/20/20 10:50 11:40 RDW ESR Carbon Dioxide C-Reactive Protein 31.9 H Total Protein Urine Protein 100 H Urine Blood SMALL H Urine Urobilinogen 2.0 H Ur Leukocyte Esterase TRACE H 02/20/20 13:35 I have reviewed laboratory data and used this information for the treatment decisions regarding the patient. - Diagnostic Test Radiology reviewed: Image reviewed, Reports reviewed Radiology results interpreted by me: 02/20/20 13:35 Chest x-ray: No acute cardiopulmonary findings X-ray left foot: Soft tissue swelling, no acute bony injury or dislocation. Discharge - Discharge Clinical Impression: Suspected 2019 novel coronavirus infection, Diffuse arthralgia Condition: Good Disposition: HOME, SELF-CARE Instructions: Arthritis ([facility]) Additional Instructions: You were seen in the emergency department with a complaint of hurting all over, the symptoms are likely arthritis related, however given the acute onset and the fatigue, you are also being tested for coronavirus. You were seen with myalgia and fatigue.Testing for influenza and strep were negative, chest x-ray is clear. Given the pandemic and coronavirus concerns, your were made a person of interest and a swab was collected and will be sent for COVID-19 evaluation. You will need to self quarantine until you get the results. Use medications as prescribed, you may add Tylenol for fever, aches and pains. Please return to the hospital if her symptoms are worsening or development of shortness of breath. Prescriptions: Tramadol HCl [Ultram 50 mg Tablet] 50 mg PO Q4HP PRN #12 tab PRN Reason: Naproxen [Naprosyn] 500 mg PO BID #20 tablet
[2020-02-20 11:35] LABS: ALBUMIN 4.1 g/dL (3.5-5.0); ALKALINE PHOSPHATASE 115 U/L (38-126); ANION GAP 7 (5-19); ASPARTATE AMINO TRANSFERASE 39 U/L (17-59); BILIRUBIN,TOTAL 1.3 mg/dL (0.2-1.3); BLOOD UREA NITROGEN 16 mg/dL (7-20); CALCIUM 9.3 mg/dL (8.4-10.2); CARBON DIOXIDE 31 mmol/L (22-30); CHLORIDE 100 mmol/L (98-107); GLUCOSE 105 mg/dL (75-110); POTASSIUM 4.2 mmol/L (3.6-5.0); TOTAL PROTEIN 8.5 g/dL (6.3-8.2)
[2020-02-20 11:48] LABS: A TYPE INFLUENZA AG NEGATIVE (NEGATIVE); B INFLUENZA AG NEGATIVE (NEGATIVE)
[2020-02-20 12:02] LABS: APPEARANCE,URINE CLEAR; BILIRUBIN,URINE NEGATIVE (NEGATIVE); COLOR,URINE YELLOW; GLUCOSE, URINE NEGATIVE (NEGATIVE); KETONES,URINE NEGATIVE (NEGATIVE); LEUKOCYTE ESTERASE,URINE TRACE (NEGATIVE); NITRITE,URINE NEGATIVE (NEGATIVE); PROTEIN,URINE 100 mg/dL (NEGATIVE); URINE SPECIFIC GRAVITY 1.015
[2020-02-20 14:11] VITALS: BP 159/101
== END 2020-02-20 14:20 | disposition home or self-care (01) ==
LOC: ER 09:44
DX: M79.10 Myalgia, unspecified site (principal); R10.30 Lower abdominal pain, unspecified; E11.9 Type 2 diabetes mellitus without complications; E78.00 Pure hypercholesterolemia, unspecified; I10 Essential (primary) hypertension; Z20.828 Contact with and (suspected) exposure to other viral communicable diseases
CPT/HCPCS: 99283; 96374; 96375; 36415; 87070; 87880; 85025; 85652; 87635; 86140; 80053; 81001; 87804; 71045; 73630; J1885; J2270; J1100; C9803; 87077

== ENCOUNTER 2020-03-12 19:48 | Emergency (ER) | payer SELFPAY ==
[2020-03-12] MEDS ORDERED: HYDROCODONE/ACETAMINOPHEN 5-325 MG TABLET PO ONE (22:25)
[2020-03-12] MEDS ORDERED: CYCLOBENZAPRINE HCL 10 MG TABLET PO ONE (22:26)
--- NOTE | 2020-03-12 22:27 | ER Document Report ---
ED Medical Screen (RME) - General Chief Complaint: Flank Pain Stated Complaint: SIDE AND BACK PAIN Time Seen by Provider: 03/12/20 22:20 Mode of Arrival: Ambulatory Information source: Patient Notes: HPI; 44-year-old male presents to the emergency room with persistent left flank pain that radiates down his left leg for several weeks. Was seen here the end of February states he was diagnosed with arthritis discharged home on tramadol and Naprosyn which he states is not helping with his pain. Did not take any medications today. Pain is worse with movement. Also does complain of dysuria. Denies nausea, vomiting, PE: Certain oriented x3. Mild distress noted. Lungs: Clear to auscultation without rales, rhonchi, wheezes. Heart: Regular rate rhythm without murmurs, rubs, gallops. No CVA tenderness noted bilaterally. I have greeted and performed a rapid initial assessment of this patient. A comprehensive ED assessment and evaluation of the patient, analysis of test results and completion of the medical decision making process will be conducted by additional ED providers. I have specifically instructed the patient or family members with the patient to immediately return to any nursing staff should anything change in the patient's condition or with their chief complaint. TRAVEL OUTSIDE OF THE [place] IN LAST 30 DAYS: No - Related Data Allergies/Adverse Reactions: No Known Allergies Allergy (Verified 11/11/19 12:46) Past Medical History - Past Medical History Cardiac Medical History: Reports: Hx Hypercholesterolemia, Hx Hypertension Denies: Hx Atrial Fibrillation, Hx Coronary Artery Disease, Hx DVT, Hx Heart Attack, Hx Pulmonary Embolism Pulmonary Medical History: Reports: Hx COPD, Hx Sleep Apnea Denies: Hx Asthma Neurological Medical History: Denies: Hx Seizures Endocrine Medical History: Reports: Hx Diabetes Mellitus Type 2. Denies: Hx Diabetes Mellitus Type 1, Hx Hyperthyroidism, Hx Hypothyroidism Renal/ Medical History: Denies: Hx Peritoneal Dialysis GI Medical History: Denies: Hx Cirrhosis, Hx Hepatitis Musculoskeltal Medical History: Denies Hx Arthritis, Reports Hx Gout Skin Medical History: Denies Hx Eczema, Denies Hx Psoriasis Psychiatric Medical History: Reports: Hx Anxiety, Hx Depression Infectious Medical History: Denies: Hx Hepatitis Past Surgical History: Reports: Hx Abdominal Surgery, Hx Orthopedic Surgery - Rt knee - Immunizations Hx Diphtheria, Pertussis, Tetanus Vaccination: Yes Physical Exam - Vital signs Vitals: Temp Pulse Resp BP Pulse Ox 99.5 F 97 17 174/107 H 91 L 03/12/20 19:49 03/12/20 19:49 03/12/20 19:49 03/12/20 19:49 03/12/20 19:49 Course - Vital Signs Vital signs: Temp Pulse Resp BP Pulse Ox 99.5 F 97 17 174/107 H 91 L 03/12/20 19:49 03/12/20 19:49 03/12/20 19:49 03/12/20 19:49 03/12/20 19:49
[2020-03-12 23:05] LABS: ABSOLUTE BASOPHILS # (AUTO) 0.1 10^3/uL (0.0-0.2); ABSOLUTE EOSINOPHILS # (AUTO) 0.4 10^3/uL (0.0-0.6); ABSOLUTE LYMPHOCYTES (AUTO) 2.4 10^3/uL (0.5-4.7); ABSOLUTE MONOCYTES (AUTO) 0.7 10^3/uL (0.1-1.4); ABSOLUTE NEUT (AUTO) 5.3 10^3/uL (1.7-8.2); BASOPHILS % (AUTO) 1.2 % (0-2); EOSINOPHILS % (AUTO) 4.3 % (0-6); HEMATOCRIT 41.7 % (37.9-51.0); HEMOGLOBIN 14.5 g/dL (13.5-17.0); LYMPHOCYTES % (AUTO) 27.3 % (13-45); MEAN CORPUSCULAR HGB CONC 34.7 g/dL (32.0-36.0); MEAN CORPUSCULAR VOLUME 84 fl (80-97); MONOCYTES % (AUTO) 7.3 % (3-13); PLATELET COUNT 229 10^3/uL (150-450); RED BLOOD COUNT 4.99 10^6/uL (4.35-5.55); RED CELL DISTRIBUTION WIDTH 14.4 % (11.5-14.0); SEGMENTED NEUTROPHILS % (AUTO) 59.9 % (42-78); TOTAL CELLS COUNTED % (AUTO) 100 %; WHITE BLOOD COUNT 8.9 10^3/uL (4.0-10.5)
[2020-03-12 23:21] LABS: APPEARANCE,URINE CLEAR; BILIRUBIN,URINE NEGATIVE (NEGATIVE); COLOR,URINE YELLOW; GLUCOSE, URINE NEGATIVE (NEGATIVE); KETONES,URINE NEGATIVE (NEGATIVE); LEUKOCYTE ESTERASE,URINE SMALL (NEGATIVE); NITRITE,URINE NEGATIVE (NEGATIVE); PROTEIN,URINE 100 mg/dL (NEGATIVE); URINE SPECIFIC GRAVITY 1.014; UROBILINOGEN,URINE NEGATIVE mg/dL (<2.0)
[2020-03-13 00:23] LABS: ALBUMIN 4.1 g/dL (3.5-5.0); ALKALINE PHOSPHATASE 126 U/L (38-126); ANION GAP 9 (5-19); ASPARTATE AMINO TRANSFERASE 32 U/L (17-59); BILIRUBIN,TOTAL 0.4 mg/dL (0.2-1.3); BLOOD UREA NITROGEN 15 mg/dL (7-20); CALCIUM 9.3 mg/dL (8.4-10.2); CARBON DIOXIDE 26 mmol/L (22-30); CHLORIDE 103 mmol/L (98-107); GLUCOSE 112 mg/dL (75-110); POTASSIUM 4.1 mmol/L (3.6-5.0); TOTAL PROTEIN 8.3 g/dL (6.3-8.2)
[2020-03-13] MEDS ORDERED: OXYCODONE HCL IR 5 MG TABLET PO ONE (04:14)
[2020-03-13] MEDS ORDERED: ONDANSETRON 4 MG TAB.RAPDIS PO ONE (04:14)
--- NOTE | 2020-03-13 04:17 | ER Document Report ---
ED GI/ - General Chief Complaint: Flank Pain Stated Complaint: SIDE AND BACK PAIN Time Seen by Provider: 03/12/20 22:20 Mode of Arrival: Ambulatory Notes: Patient is a 44-year-old male that comes to the emergency department for chief complaint of left sided abdomen and left-sided flank pain. He states the pain is sharp and shoots from his side to his back. He states he has had this for several weeks now. He states sometimes the pain is so bad it feels like it goes into his legs. He denies numbness, dysuria, incontinence, genital pain, penile discharge. He denies history of kidney stones. He denies injury. He states last time he was seen he was started on tramadol and Naprosyn but this did not seem to help and he still gets intermittent very sharp pain. Past medical history of type 2 diabetes, hypertension, tobacco abuse/COPD, PE. He is not on a blood thinner. TRAVEL OUTSIDE OF THE [place] IN LAST 30 DAYS: No - Related Data Allergies/Adverse Reactions: No Known Allergies Allergy (Verified 11/11/19 12:46) Home Medications: lisinopril,gabapentin, metformin, amilodipine,ator vastatin, metoprolol Past Medical History - General Information source: Patient - Social History Smoking Status: Current Every Day Smoker Frequency of alcohol use: None Drug Abuse: None Lives with: Family Family History: Reviewed & Not Pertinent, DM, Hyperlipidemia, Hypertension, Thyroid Disfunction Patient has homicidal ideation: No - Past Medical History Cardiac Medical History: Reports: Hx Hypercholesterolemia, Hx Hypertension Denies: Hx Atrial Fibrillation, Hx Coronary Artery Disease, Hx DVT, Hx Heart Attack, Hx Pulmonary Embolism Pulmonary Medical History: Reports: Hx COPD, Hx Sleep Apnea Denies: Hx Asthma Neurological Medical History: Denies: Hx Seizures Endocrine Medical History: Reports: Hx Diabetes Mellitus Type 2. Denies: Hx Diabetes Mellitus Type 1, Hx Hyperthyroidism, Hx Hypothyroidism Renal/ Medical History: Denies: Hx Peritoneal Dialysis GI Medical History: Denies: Hx Cirrhosis, Hx Hepatitis Musculoskeletal Medical History: Denies Hx Arthritis, Reports Hx Gout Skin Medical History: Denies Hx Eczema, Denies Hx Psoriasis Psychiatric Medical History: Reports: Hx Anxiety, Hx Depression Infectious Medical History: Denies: Hx Hepatitis Past Surgical History: Reports: Hx Abdominal Surgery, Hx Orthopedic Surgery - Rt knee - Immunizations Hx Diphtheria, Pertussis, Tetanus Vaccination: Yes Review of Systems - Review of Systems Constitutional: No symptoms reported EENT: No symptoms reported Cardiovascular: No symptoms reported Respiratory: No symptoms reported Gastrointestinal: See HPI Genitourinary: See HPI Male Genitourinary: No symptoms reported Musculoskeletal: See HPI Skin: No symptoms reported Hematologic/Lymphatic: No symptoms reported Neurological/Psychological: No symptoms reported Physical Exam - Vital signs Vitals: Temp Pulse Resp BP Pulse Ox 99.5 F 97 17 174/107 H 91 L 03/12/20 19:49 03/12/20 19:49 03/12/20 19:49 03/12/20 19:49 03/12/20 19:49 - Notes Notes: GENERAL: Alert, interacts well. No acute distress. HEAD: Normocephalic, atraumatic. EYES: Pupils equal, round, and reactive to light. Extraocular movements intact. ENT: Oral mucosa moist, tongue midline. Oropharynx unremarkable. Airway patent. NECK: Full range of motion. Supple. Trachea midline. No lymphadenopathy. LUNGS: Clear to auscultation bilaterally, no wheezes, rales, or rhonchi. No respiratory distress. Non-tender chest wall. HEART: Regular rate and rhythm. No murmur ABDOMEN: Soft, non-tender. Non-distended. EXTREMITIES: Moves all 4 extremities spontaneously. No edema, normal radial and dorsalis pedis pulses bilaterally. No cyanosis. BACK: Bilateral paralumbar musculature tenderness which is specific. No overt CVA tenderness. No signs of trauma. Negative straight leg raises. Patient is able to ambulate. No cervical, thoracic, lumbar midline tenderness. No saddle anesthesia, normal distal neurovascular exam. Moves all extremities in full range of motion. NEUROLOGICAL: Alert and oriented x3. Normal speech. Cranial nerves II through XII grossly intact. Strength 5/5 in all extremities. PSYCH: Normal affect, normal mood. SKIN: Warm, dry, normal turgor. No rashes or lesions noted. Course - Re-evaluation Re-evalutation: Patient sleeping but easily aroused on my exam. He does have paralumbar musculature tenderness and pain with position changes but negative straight leg raise, no neurovascular deficits, no saddle anesthesia, no incontinence. No fever, no history of IV drug abuse. Patient also has pain in the left abdomen reportedly, he indicates the area by pointing, although his abdomen is nontender on my exam. Because of the location of pain, urinalysis showing infection, discussed with patient and decision was made to perform CT of the abdomen pelvis to rule out infected obstructing stone or other concerning acute findings. CBC and chemistry unremarkable. CT unremarkable with no acute findings including no ureterolithiasis. Patient states he has had a urinary tract infection in the past, he does not have exam or symptom suggesting prostatitis. He is not sexually active and has not been for a long time, he has no discharge or genital pain. Patient will be started on both muscle relaxers and antibiotics. He requested additional evaluation of the back, however after discussion recommendation is for him to follow-up with primary care for this based on lack of concerning or neurological symptoms. Discussed return precautions in detail however. Patient states understanding and agreement. Stable and well-appearing at time of discharge. - Vital Signs Vital signs: Temp Pulse Resp BP Pulse Ox 98.0 F 89 12 153/86 H 95 03/13/20 05:46 03/13/20 05:46 03/13/20 05:46 03/13/20 05:46 03/13/20 05:46 - Laboratory Result Diagrams: 03/12/20 22:53 03/12/20 22:53 Laboratory results interpreted by me: 03/12/20 03/12/20 03/12/20 22:53 22:53 22:53 RDW 14.4 H Glucose 112 H Total Protein 8.3 H Urine Protein 100 H Urine Blood MODERATE H Ur Leukocyte Esterase SMALL H Discharge - Discharge Clinical Impression: Flank pain Abdominal pain Qualifiers: Abdominal location: lower abdomen, unspecified Qualified Code(s): R10.30 - Lower abdominal pain, unspecified Urinary tract infection Qualifiers: Urinary tract infection type: site unspecified Hematuria presence: without hematuria Qualified Code(s): N39.0 - Urinary tract infection, site not specified Condition: Stable Disposition: HOME, SELF-CARE Instructions: Oral Narcotic Medication ([facility]) Additional Instructions: You do have a urinary tract infection, however your remaining testing including your imaging does not show any concerning findings. Take the antibiotics as prescribed to completion. You have also been prescribed a muscle relaxer because of what appears to be musculoskeletal pain on exam. Follow-up with primary care for additional management and evaluation of your back because of your ongoing muscle spasms, consider a routine MRI. Return if you worsen including severe worsening pain, fever, vomiting, developing numbness, inability to control your bowel or bladder, or any other concerning symptoms. Prescriptions: Sulfamethoxazole/Trimethoprim [Bactrim Ds Tablet] 1 each PO BID 14 Days #28 tablet Methocarbamol [Robaxin-750] 750 mg PO QID PRN #20 tablet PRN Reason:
--- NOTE | 2020-03-13 05:00 | RADIOLOGY REPORT (SQ) ---
EXAM DESCRIPTION: CT ABDOMEN PELVIS WITHOUT IV CONTRAST COMPLETED DATE/TME: 03/13/2020 04:14 CLINICAL HISTORY: left abd and flank pain COMPARISON: None Available. TECHNIQUE: CT of the abdomen and pelvis without IV contrast. Evaluation of the solid organs and vasculature is suboptimal due to lack of IV contrast. FINDINGS: Lung Bases: The visualized lung bases are clear. Bones: No destructive bone lesions identified. Abdomen: Liver: Hepatomegaly and hepatic steatosis. Gallbladder: No calcified gallstones. Spleen, Pancreas, and Adrenal Glands: The spleen, pancreas, and adrenal glands are unremarkable. Kidneys: The kidneys have normal size without evidence of hydronephrosis. No obstructing ureteral calculi. Vasculature: The aorta and IVC have normal caliber and position. Stomach: The stomach and duodenum have normal course. Other: No free intraperitoneal air. No free fluid or lymphadenopathy. Pelvis: Bladder: Urinary bladder is unremarkable. Bowel: No dilated loops of large or small bowel. Scattered diverticula of the colon. Appendix: Normal appendix. Pelvis: Prostate is not enlarged. IMPRESSION: 1. No acute inflammatory or obstructive process identified. 2. Diverticulosis without evidence of acute diverticulitis. 3. Hepatomegaly and hepatic steatosis. This exam was performed according to our departmental dose-optimization program, which includes automated exposure control, adjustment of the mA and/or kV according to patient size and/or use of iterative reconstruction technique.
[2020-03-13 05:50] VITALS: BP 153/86
[2020-03-13] MEDS ORDERED: SULFAMETHOXAZOLE/TRIMETHOPRIM 800-160 MG TABLET PO ONE (06:19)
[2020-03-13] MEDS ORDERED: HYDROCODONE/ACETAMINOPHEN 5-325 MG (6 TAB/ER DISP) PO PRN (06:19)
== END 2020-03-13 06:44 | disposition home or self-care (01) ==
LOC: ER 19:48
DX: N39.0 Urinary tract infection, site not specified (principal); R10.30 Lower abdominal pain, unspecified; M54.9 Dorsalgia, unspecified; F17.200 Nicotine dependence, unspecified, uncomplicated; E78.00 Pure hypercholesterolemia, unspecified; I10 Essential (primary) hypertension; E11.9 Type 2 diabetes mellitus without complications
CPT/HCPCS: 99284; 36415; 87086; 85025; 80053; 81001; 74176; S0119

== ENCOUNTER 2020-03-17 08:54 | Emergency (ER) | payer SELFPAY ==
[2020-03-17 11:04] LABS: ABSOLUTE BASOPHILS # (AUTO) 0.1 10^3/uL (0.0-0.2); ABSOLUTE EOSINOPHILS # (AUTO) 0.3 10^3/uL (0.0-0.6); ABSOLUTE LYMPHOCYTES (AUTO) 2.1 10^3/uL (0.5-4.7); ABSOLUTE MONOCYTES (AUTO) 0.7 10^3/uL (0.1-1.4); BASOPHILS % (AUTO) 0.8 % (0-2); EOSINOPHILS % (AUTO) 3.1 % (0-6); HEMATOCRIT 42.5 % (37.9-51.0); HEMOGLOBIN 14.8 g/dL (13.5-17.0); LYMPHOCYTES % (AUTO) 25.8 % (13-45); MEAN CORPUSCULAR HGB CONC 34.9 g/dL (32.0-36.0); MEAN CORPUSCULAR VOLUME 83 fl (80-97); MONOCYTES % (AUTO) 8.2 % (3-13); PLATELET COUNT 254 10^3/uL (150-450); RED BLOOD COUNT 5.11 10^6/uL (4.35-5.55); RED CELL DISTRIBUTION WIDTH 14.8 % (11.5-14.0); SEGMENTED NEUTROPHILS % (AUTO) 62.1 % (42-78); TOTAL CELLS COUNTED % (AUTO) 100 %
[2020-03-17 11:15] LABS: APPEARANCE,URINE CLEAR; BILIRUBIN,URINE NEGATIVE (NEGATIVE); COLOR,URINE YELLOW; GLUCOSE, URINE NEGATIVE (NEGATIVE); KETONES,URINE NEGATIVE (NEGATIVE); LEUKOCYTE ESTERASE,URINE TRACE (NEGATIVE); NITRITE,URINE NEGATIVE (NEGATIVE); PROTEIN,URINE 100 mg/dL (NEGATIVE); URINE SPECIFIC GRAVITY 1.013; UROBILINOGEN,URINE NEGATIVE mg/dL (<2.0)
--- NOTE | 2020-03-17 11:23 | ER Document Report ---
Entered by ZULEYKA DAVIS SCRIBE 03/17/20 1040 Acting as scribe for:BLAKE HINOJOSA MD ED Neck/Back Problem - General Chief Complaint: Back Pain Stated Complaint: REVISIT/FLANK PAIN Time Seen by Provider: 03/17/20 09:59 Mode of Arrival: Wheelchair Information source: Patient Notes: This 44 year old male patient presents to the emergency department today with complaints of right mid-back pain for over one month. Patient states it initially started on the left side and he was seen here and was told it was arthritis but now its moved from the left to the right "and it can't be arthritis because it hurts too much". He has been homeless for over one year but is "staying with a friend for the time being". He mentions that he took some pills in an attempted suicide over one month ago but does not feel suicidal now. Patient reports at this time the pain is in the right upper back shoulder blade region, it hurts trying to lift his arm, it hurts reaching across his chest. He said in the past the pain went to the other shoulder. There is no history of injury or strain. TRAVEL OUTSIDE OF THE [place] IN LAST 30 DAYS: No - Related Data Allergies/Adverse Reactions: No Known Allergies Allergy (Verified 03/17/20 09:18) Home Medications: metformin, gabapentin, metoprolol, advair, atorvastatin Past Medical History - General Information source: Patient - Social History Smoking Status: Former Smoker Chew tobacco use (# tins/day): No Frequency of alcohol use: Social Drug Abuse: None Occupation: unemployed Family History: Reviewed & Not Pertinent, DM, Hyperlipidemia, Hypertension, Thyroid Disfunction Patient has homicidal ideation: No - Past Medical History Cardiac Medical History: Reports: Hx Hypercholesterolemia, Hx Hypertension Pulmonary Medical History: Reports: Hx COPD, Hx Sleep Apnea Endocrine Medical History: Reports: Hx Diabetes Mellitus Type 2 Musculoskeletal Medical History: Reports Hx Gout Psychiatric Medical History: Reports: Hx Anxiety, Hx Depression Past Surgical History: Reports: Hx Abdominal Surgery, Hx Orthopedic Surgery - Rt knee - Immunizations Hx Diphtheria, Pertussis, Tetanus Vaccination: Yes Review of Systems - Review of Systems Constitutional: No symptoms reported EENT: No symptoms reported Cardiovascular: No symptoms reported Respiratory: No symptoms reported Gastrointestinal: No symptoms reported Genitourinary: No symptoms reported Male Genitourinary: No symptoms reported Musculoskeletal: See HPI, Back pain Skin: No symptoms reported Hematologic/Lymphatic: No symptoms reported Neurological/Psychological: No symptoms reported -: Yes All other systems reviewed and negative Physical Exam - Vital signs Vitals: Temp Pulse Resp BP Pulse Ox 99.1 F 90 18 153/95 H 96 03/17/20 08:57 03/17/20 08:57 03/17/20 08:57 03/17/20 08:57 03/17/20 08:57 - Notes Notes: Physical Exam: General: Alert, appears well. HEENT: Normocephalic. Atraumatic. PERRL. Extraocular movements intact. Oropharynx clear. Neck: Supple. Non-tender. Respiratory: No respiratory distress. Clear and equal breath sounds bilaterally. Cardiovascular: Regular rate and rhythm. Abdominal: Normal Inspection. Non-tender. No distension. Normal Bowel Sounds. Back: Right parathoracic musculature tenderness with palpation, right scapular muscles are tender with palpation. Extremities: Moves all four extremities. Upper extremities: Normal inspection. Normal ROM. Lower extremities: Normal inspection. No edema. Normal ROM. Neurological: Normal cognition. AAOx4. Normal speech. Psychological: Normal affect. Normal Mood. Skin: Warm. Dry. Normal color. Course - Re-evaluation Re-evalutation: 03/17/20 11:58 The patient's lab work today was compared to previous lab work over the last few years. The current values for CRP, CK, d-dimer, and all other lab values are essentially unremarkable today compared to the past. - Vital Signs Vital signs: Temp Pulse Resp BP Pulse Ox 99.1 F 90 18 153/95 H 96 03/17/20 08:57 03/17/20 08:57 03/17/20 08:57 03/17/20 08:57 03/17/20 08:57 - Laboratory Result Diagrams: 03/17/20 10:53 03/17/20 10:53 Laboratory results interpreted by me: 03/17/20 03/17/20 03/17/20 10:53 10:53 10:53 RDW 14.8 H D-Dimer 0.69 H Carbon Dioxide 31 H Glucose 111 H ALT 54 H Alkaline Phosphatase 146 H Creatine Kinase 266 H C-Reactive Protein 27.9 H Total Protein 9.0 H Urine Protein Urine Blood Ur Leukocyte Esterase 08/12/20 10:53 RDW D-Dimer Carbon Dioxide Glucose ALT Alkaline Phosphatase Creatine Kinase C-Reactive Protein Total Protein Urine Protein 100 H Urine Blood SMALL H Ur Leukocyte Esterase TRACE H Discharge - Discharge Clinical Impression: Muscle strain of right scapular region Qualifiers: Encounter type: initial encounter Qualified Code(s): S46.911A - Strain of unspecified muscle, fascia and tendon at shoulder and upper arm level, right arm, initial encounter Condition: Stable Disposition: HOME, SELF-CARE Additional Instructions: Scapular Muscle Strain: You have probably strained the muscles around your right scapula. This often occurs with strenuous exertion, or during an injury that suddenly stretches the muscle. The seriousness of a strain varies. Some strains heal within days, others cause problems for months. X-rays cannot show a muscle strain. X-rays are taken only if symptoms suggest that a fracture could be present. The usual treatment of a muscle strain is rest and ice packs. Sometimes, a sling, splint, or crutches may be necessary to rest the muscle. The muscle can be used again once pain subsides. Severe strains require a special exercise and stretching program to prevent permanent stiffness and disability. Your doctor will advise you if this will be necessary. Call the doctor immediately if pain or swelling becomes severe, or if numbness or discoloration develop. Scapular muscle strains can also be quite debilitating and can take months to improve. Physical therapy or chiropractic treatment often helps speed up recovery. We will start you on a muscle relaxer and continue the pain medication you received here in the past. You should take something like Motrin 3 times daily, or Aleve twice daily to help reduce some of the inflammation and pain. Follow-up with the [facility] if not improving. RETURN TO THE EMERGENCY ROOM IF ANY NEW OR WORSENING SYMPTOMS. Prescriptions: Methocarbamol [Robaxin 750 mg Tablet] 750 mg PO ASDIR PRN #40 tablet PRN Reason: Tramadol HCl [Ultram 50 mg Tablet] 50 mg PO Q6 #30 tablet I personally performed the services described in the documentation, reviewed and edited the documentation which was dictated to the scribe in my presence, and it accurately records my words and actions.
[2020-03-17 11:40] LABS: ALBUMIN 4.4 g/dL (3.5-5.0); ALKALINE PHOSPHATASE 146 U/L (38-126); ANION GAP 7 (5-19); ASPARTATE AMINO TRANSFERASE 48 U/L (17-59); BILIRUBIN,DIRECT 0.1 mg/dL (0.0-0.4); BLOOD UREA NITROGEN 16 mg/dL (7-20); C-REACTIVE PROTEIN 27.9 mg/L (<10.0); CALCIUM 9.6 mg/dL (8.4-10.2); CARBON DIOXIDE 31 mmol/L (22-30); CHLORIDE 100 mmol/L (98-107); CREATINE KINASE 266 U/L (55-170); GLUCOSE 111 mg/dL (75-110); POTASSIUM 4.6 mmol/L (3.6-5.0)
[2020-03-17] MEDS ORDERED: NAPROXEN 250 MG TABLET PO ONE (12:12)
[2020-03-17] MEDS ORDERED: TRAMADOL HCL 50 MG TABLET PO ONE (12:13)
[2020-03-17] MEDS ORDERED: METHOCARBAMOL 750 MG TABLET PO ONE (12:13)
[2020-03-17 12:28] VITALS: BP 150/73
== END 2020-03-17 12:28 | disposition home or self-care (01) ==
LOC: ER 08:54
DX: S46.911A Strain of unspecified muscle, fascia and tendon at shoulder and upper arm level, right arm, initial encounter (principal); X58.XXXA Exposure to other specified factors, initial encounter; M54.9 Dorsalgia, unspecified; J44.9 Chronic obstructive pulmonary disease, unspecified; I10 Essential (primary) hypertension; E11.9 Type 2 diabetes mellitus without complications; E78.00 Pure hypercholesterolemia, unspecified; Z91.5 Personal history of self-harm; Z79.84 Long term (current) use of oral hypoglycemic drugs; Z79.899 Other long term (current) drug therapy; Z79.51 Long term (current) use of inhaled steroids; Z87.891 Personal history of nicotine dependence
CPT/HCPCS: 99283; 36415; 82550; 85025; 86140; 80053; 81001; 85379; J3490

== ENCOUNTER 2020-03-28 03:03 | Emergency (ER) | payer SELFPAY ==
[2020-03-28] MEDS ORDERED: MORPHINE SULFATE 10 MG/ML INJ IV ONE ×2 (07:36→10:00)
[2020-03-28] MEDS ORDERED: LORAZEPAM INJ 2 MG/1 ML VIAL IV ONE (07:37)
--- NOTE | 2020-03-28 08:55 | RADIOLOGY REPORT (SQ) ---
EXAM DESCRIPTION: CT HEAD WITHOUT; CT CERVICAL SPINE WITHOUT IMAGES COMPLETED DATE/TIME: 03/28/2020 8:43 am REASON FOR STUDY: headache/occiput/accelerated HTN; neck pain COMPARISON: None. TECHNIQUE: Axial images acquired through the brain and cervical spine without intravenous contrast. Images reviewed with brain, subdural, lung, soft tissue and bone windows. Reconstructed coronal and sagittal MPR images reviewed. Images stored on PACS. All CT scanners at this facility use dose modulation, iterative reconstruction, and/or weight based d osing when appropriate to reduce radiation dose to as low as reasonably achievable (ALARA). [facility]: Dose Right [facility]: CareDose [facility]: Dose Right [facility]: Teradose 4D [facility]: [employer] RADIATION DOSE: CT Rad equipment meets quality standard of care and radiation dose reduction techniq ues were employed. CTDIvol: 53.2 mGy. DLP: 991 mGy-cm.; CT Rad equipment meets quality standard of ca re and radiation dose reduction techniques were employed. CTDIvol: 26.0 mGy. DLP: 516 mGy-cm. mGy. LIMITATIONS: See below. FINDINGS: Brain 11/18/2019 comparison. No hydrocephalus developing. No hemorrhage or mass or shift. Mild small vess el disease, as before. Orbits intact. No skull fracture. Trace sphenoid sinus fluid. Cervical spine No malalignment or fracture. Multilevel disc disease with narrowing and osteophytes throughout. Thy romegaly. Soft tissues otherwise normal. Lung apices clear. IMPRESSION: 1. Generally chronic brain changes. Trace sphenoid sinus fluid. 2. Cervical spondylosis without fracture or malalignment. TECHNICAL DOCUMENTATION: JOB ID: [id number] Quality ID # [id number]: Final reports with documentation of one or more dose reduction techniques (e.g., Au tomated exposure control, adjustment of the mA and/or kV according to patient size, use of iterative reconstruction technique) 2010 [employer]- All Rights Reserved Reading location - IP/workstation name: [email or web address]
--- NOTE | 2020-03-28 08:55 | RADIOLOGY REPORT (SQ) ---
EXAM DESCRIPTION: CT HEAD WITHOUT; CT CERVICAL SPINE WITHOUT IMAGES COMPLETED DATE/TIME: 03/28/2020 8:43 am REASON FOR STUDY: headache/occiput/accelerated HTN; neck pain COMPARISON: None. TECHNIQUE: Axial images acquired through the brain and cervical spine without intravenous contrast. Images reviewed with brain, subdural, lung, soft tissue and bone windows. Reconstructed coronal and sagittal MPR images reviewed. Images stored on PACS. All CT scanners at this facility use dose modulation, iterative reconstruction, and/or weight based d osing when appropriate to reduce radiation dose to as low as reasonably achievable (ALARA). [facility]: Dose Right [facility]: CareDose [facility]: Dose Right [facility]: Teradose 4D [facility]: [employer] RADIATION DOSE: CT Rad equipment meets quality standard of care and radiation dose reduction techniq ues were employed. CTDIvol: 53.2 mGy. DLP: 991 mGy-cm.; CT Rad equipment meets quality standard of ca re and radiation dose reduction techniques were employed. CTDIvol: 26.0 mGy. DLP: 516 mGy-cm. mGy. LIMITATIONS: See below. FINDINGS: Brain 11/18/2019 comparison. No hydrocephalus developing. No hemorrhage or mass or shift. Mild small vess el disease, as before. Orbits intact. No skull fracture. Trace sphenoid sinus fluid. Cervical spine No malalignment or fracture. Multilevel disc disease with narrowing and osteophytes throughout. Thy romegaly. Soft tissues otherwise normal. Lung apices clear. IMPRESSION: 1. Generally chronic brain changes. Trace sphenoid sinus fluid. 2. Cervical spondylosis without fracture or malalignment. TECHNICAL DOCUMENTATION: JOB ID: [id number] Quality ID # [id number]: Final reports with documentation of one or more dose reduction techniques (e.g., Au tomated exposure control, adjustment of the mA and/or kV according to patient size, use of iterative reconstruction technique) 2010 [employer]- All Rights Reserved Reading location - IP/workstation name: [email or web address]
--- NOTE | 2020-03-28 09:03 | RADIOLOGY REPORT (SQ) ---
EXAM DESCRIPTION: CHEST SINGLE VIEW IMAGES COMPLETED DATE/TIME: 03/28/2020 8:41 am REASON FOR STUDY: htn COMPARISON: 02/20/2020 FINDINGS: One-view chest AP portable upright. Clear lungs. Normal stable cardiomediastinal silhouette. Intact bones. No acute abnormality. TECHNICAL DOCUMENTATION: JOB ID: [id number] Reading location - IP/workstation name: [email or web address]
[2020-03-28] MEDS ORDERED: LABETALOL HCL INJ 20 MG/4 ML DISP.SYRIN IV ONE (09:09)
[2020-03-28 09:12] LABS: ABSOLUTE BASOPHILS # (AUTO) 0.1 10^3/uL (0.0-0.2); ABSOLUTE EOSINOPHILS # (AUTO) 0.2 10^3/uL (0.0-0.6); ABSOLUTE LYMPHOCYTES (AUTO) 1.8 10^3/uL (0.5-4.7); ABSOLUTE MONOCYTES (AUTO) 0.7 10^3/uL (0.1-1.4); ABSOLUTE NEUT (AUTO) 5.5 10^3/uL (1.7-8.2); BASOPHILS % (AUTO) 0.7 % (0-2); HEMATOCRIT 43.1 % (37.9-51.0); HEMOGLOBIN 14.7 g/dL (13.5-17.0); LYMPHOCYTES % (AUTO) 22.2 % (13-45); MEAN CORPUSCULAR HEMOGLOBIN 28.9 pg (27.0-33.4); MEAN CORPUSCULAR VOLUME 85 fl (80-97); MONOCYTES % (AUTO) 8.5 % (3-13); PLATELET COUNT 238 10^3/uL (150-450); RED BLOOD COUNT 5.07 10^6/uL (4.35-5.55); SEGMENTED NEUTROPHILS % (AUTO) 66.6 % (42-78); TOTAL CELLS COUNTED % (AUTO) 100 %; WHITE BLOOD COUNT 8.2 10^3/uL (4.0-10.5)
[2020-03-28 09:35] LABS: ALBUMIN 4.1 g/dL (3.5-5.0); ALKALINE PHOSPHATASE 133 U/L (38-126); ANION GAP 11 (5-19); ASPARTATE AMINO TRANSFERASE 30 U/L (17-59); BILIRUBIN,DIRECT 0.2 mg/dL (0.0-0.4); BILIRUBIN,TOTAL 0.9 mg/dL (0.2-1.3); BLOOD UREA NITROGEN 12 mg/dL (7-20); CALCIUM 9.4 mg/dL (8.4-10.2); CARBON DIOXIDE 27 mmol/L (22-30); CHLORIDE 101 mmol/L (98-107); CREATINE KINASE 202 U/L (55-170); GLUCOSE 112 mg/dL (75-110); POTASSIUM 4.3 mmol/L (3.6-5.0); TOTAL PROTEIN 8.7 g/dL (6.3-8.2)
[2020-03-28] MEDS ORDERED: HYDRALAZINE HCL INJ/PF 20 MG/1 ML SDV IV ONE (10:55)
[2020-03-28 11:59] LABS: APPEARANCE,URINE SLIGHTLY-CLOUDY; BILIRUBIN,URINE NEGATIVE (NEGATIVE); COLOR,URINE YELLOW; GLUCOSE, URINE NEGATIVE (NEGATIVE); KETONES,URINE NEGATIVE (NEGATIVE); LEUKOCYTE ESTERASE,URINE LARGE (NEGATIVE); NITRITE,URINE NEGATIVE (NEGATIVE); PROTEIN,URINE 100 mg/dL (NEGATIVE); URINE SPECIFIC GRAVITY 1.016
[2020-03-28] MEDS ORDERED: CIPROFLOXACIN HCL 500 MG TABLET PO ONE (12:08)
[2020-03-28 12:20] LABS: URINE AMPHETAMINES SCREEN NEGATIVE; URINE BARBITURATES SCREEN NEGATIVE; URINE BENZODIAZEPINES SCREEN NEGATIVE; URINE COCAINE SCREEN NEGATIVE; URINE MARIJUANA (THC) SCREEN NEGATIVE; URINE METHADONE SCREEN NEGATIVE; URINE PHENCYCLIDINE SCREEN NEGATIVE
[2020-03-28] MEDS ORDERED: HYDROCODONE/ACETAMINOPHEN 5-325 MG (6 TAB/ER DISP) PO PRN (12:22)
--- NOTE | 2020-03-28 12:23 | ER Document Report ---
Entered by SEGUNDO WOODARD SCRIBE 03/28/20 0728 Acting as scribe for:AUGUST VILLANUEVA MD ED General - General Chief Complaint: Stiff Neck Stated Complaint: BODY STIFFNESS/SHORT OF BREATH Time Seen by Provider: 03/28/20 07:04 Information source: Patient Notes: This 44 year old male patient presents to the emergency department today with neck pain for the past x2 days. Patient states the pain was in the back of his head then traveled to his neck and is not relieved by hot rags or hot showers. Patient states he lives with a friend and he gave him x2 vicodin and a muscle relaxer yesterday afternoon. Denies injury or overexerting himself, other than playing pool or mowing the lawn. Denies fever, chills, or vomiting. Patient states he visited the ED x11 days ago for a scapular muscle strain. Patient reports history of arthritis and HTN. TRAVEL OUTSIDE OF THE [place] IN LAST 30 DAYS: No - Related Data Allergies/Adverse Reactions: No Known Allergies Allergy (Verified 03/17/20 09:18) Home Medications: metformin, amilodipine gabapentin, lisinopril, metoprolol, Past Medical History - General Information source: Patient - Social History Smoking Status: Former Smoker Cigarette use (# per day): No Family History: Reviewed & Not Pertinent, DM, Hyperlipidemia, Hypertension, Thyroid Disfunction Patient has homicidal ideation: No - Past Medical History Cardiac Medical History: Reports: Hx Congestive Heart Failure, Hx Hypercholesterolemia, Hx Hypertension Pulmonary Medical History: Reports: Hx COPD, Hx Sleep Apnea Endocrine Medical History: Reports: Hx Diabetes Mellitus Type 2, Hx Hyperthyroidism Musculoskeletal Medical History: Reports Hx Arthritis, Reports Hx Gout Psychiatric Medical History: Reports: Hx Anxiety, Hx Depression Past Surgical History: Reports: Hx Abdominal Surgery, Hx Orthopedic Surgery - Rt knee - Immunizations Hx Diphtheria, Pertussis, Tetanus Vaccination: Yes Review of Systems - Review of Systems Constitutional: See HPI. denies: Chills, Fever EENT: No symptoms reported Cardiovascular: No symptoms reported Respiratory: No symptoms reported Gastrointestinal: See HPI. denies: Vomiting Genitourinary: No symptoms reported Male Genitourinary: No symptoms reported Musculoskeletal: See HPI, Neck pain - posterior Skin: No symptoms reported Hematologic/Lymphatic: No symptoms reported Neurological/Psychological: See HPI -: Yes All other systems reviewed and negative Physical Exam - Vital signs Vitals: Temp Pulse Resp BP Pulse Ox 98.7 F 93 18 184/116 H 92 03/28/20 03:09 03/28/20 03:09 03/28/20 03:09 03/28/20 03:09 03/28/20 03:09 - General General appearance: Appears well, Alert - HEENT Head: Normocephalic, Atraumatic Eyes: Normal Pupils: PERRL Notes: Tenderness with palpation of the left posterior cervical chain to the left suprascapular region. - Respiratory Respiratory status: No respiratory distress Chest status: Nontender Breath sounds: Normal Chest palpation: Normal - Cardiovascular Rhythm: Regular Heart sounds: Normal auscultation Murmur: No - Abdominal Inspection: Normal Distension: No distension Bowel sounds: Normal Tenderness: Nontender - Extremities General upper extremity: Normal inspection. No: Edema General lower extremity: Normal inspection. No: Edema - Neurological Neuro grossly intact: Yes Cognition: Normal Orientation: AAOx4 Speech: Normal - Psychological Associated symptoms: Normal affect, Normal mood - Skin Skin Temperature: Warm Skin Moisture: Dry Skin Color: Normal Course - Re-evaluation Re-evalutation: Patient has improved in terms of his occipital headache and neck pain with spasms radiating out to the left shoulder region. Patient's blood pressure has improved with medications. Patient does take blood pressure medicines but most likely he is unsure if he took his medicines and most likely he did not take his blood pressure medicine this morning as he awakened with pain in his neck. 03/28/20 12:16 Patient is alert oriented nonfocal neuro exam moves all extremities speech is clear not showing any neurological motor signs deficits at this time. - Vital Signs Vital signs: Temp Pulse Resp BP Pulse Ox 98.7 F 88 18 161/109 H 98 03/28/20 03:09 03/28/20 06:38 03/28/20 11:31 03/28/20 11:31 03/28/20 11:31 03/28/20 12:11 Signs as above C1 over 109 is his blood pressure at this time patient has his medications at home to take once he arrives there. - Laboratory Result Diagrams: 03/28/20 09:00 03/28/20 09:00 Laboratory results interpreted by me: 03/28/20 03/28/20 03/28/20 09:00 09:00 09:37 RDW 15.0 H Glucose 112 H Alkaline Phosphatase 133 H Creatine Kinase 202 H Total Protein 8.7 H Urine Protein 100 H Urine Blood SMALL H Urine Urobilinogen 2.0 H Ur Leukocyte Esterase LARGE H Patient shows urinary tract infection with small blood and large leukocyte teressa rase. Glucose of 112 and a CPK of 202. - Diagnostic Test Radiology reviewed: Image reviewed, Reports reviewed Radiology results interpreted by me: 03/28/20 12:13 CT of the head shows chronic changes no acute process CT of cervical spine shows spondylo-low cyst no fracture no malalignment. Chest x-ray shows no acute process. Discharge - Discharge Clinical Impression: Muscle spasms of neck, Accelerated hypertension, Headache, Urinary tract infection Condition: Stable Disposition: HOME, SELF-CARE Instructions: Urinary Tract Infection ([facility]) Additional Instructions: Muscle Relaxers Muscle relaxing medications are usually prescribed for acute muscle spasm or injury to the neck and back. They are often combined with antiinflammatory pain medication for increased relief. You may stop the muscle relaxer when the pain and stiffness have improved. Start the medication again if spasms recur. Muscle relaxers may cause drowsiness, especially with the first dose. Do not operate machinery or drive while under the effects of the medication. Most muscle relaxers last up to 24 hours. Do not combine the medication with alcohol.Muscle Strain You have strained a muscle -- torn the fibers within the muscle. This often occurs with strenuous exertion, or during an injury that suddenly stretches the muscle. The seriousness of a strain varies. Some strains heal within days, others cause problems for months. X-rays cannot show a muscle strain. X-rays are taken only if symptoms suggest that a fracture could be present. The usual treatment of a muscle strain is rest and ice packs. Sometimes, a sling, splint, or crutches may be necessary to rest the muscle. The muscle can be used again once pain subsides. Severe strains require a special exercise and stretching program to prevent permanent stiffness and disability. Your doctor will advise you if this will be necessary. Call the doctor immediately if pain or swelling becomes severe, or if numbness or discoloration develop. Prescriptions: Baclofen [Baclofen 10 mg Tablet] 10 mg PO TID PRN #30 tab PRN Reason: muscle spasm Ciprofloxacin HCl [Cipro 500 mg Tablet] 500 mg PO BID #20 tablet Hydrocodone/Acetaminophen [[place] 5-325 mg Tabs (6 Tab/ER Disp)] 1 tab PO BID PRN 3 Days #6 tab PRN Reason: For Pain I personally performed the services described in the documentation, reviewed and edited the documentation which was dictated to the scribe in my presence, and it accurately records my words and actions.
[2020-03-28 12:52] VITALS: BP 154/114
== END 2020-03-28 13:00 | disposition home or self-care (01) ==
LOC: ER 03:03
DX: N39.0 Urinary tract infection, site not specified (principal); M62.830 Muscle spasm of back; I10 Essential (primary) hypertension; M43.6 Torticollis; R51 Headache; Z79.84 Long term (current) use of oral hypoglycemic drugs; Z79.899 Other long term (current) drug therapy; Z87.891 Personal history of nicotine dependence
CPT/HCPCS: 96376; 99285; 96374; 96375; 36415; 87086; 82550; 85025; 80053; 81001; 84484; 80307; 71045; 70450; 72125; J0360; J3490; J2270; J2060

== ENCOUNTER 2020-04-03 08:41 | Emergency (ER) | payer SELFPAY ==
[2020-04-03] MEDS ORDERED: NORMAL SALINE 1000 ML 1,000 ML IV ONE (09:40)
[2020-04-03] MEDS ORDERED: PROCHLORPERAZINE EDISYLATE INJ 10 MG/2 ML VIAL IV ONE (09:40)
[2020-04-03] MEDS ORDERED: DIPHENHYDRAMINE HCL 50 MG/ML VIAL IV ONE (09:41)
--- NOTE | 2020-04-03 09:43 | ER Document Report ---
ED Headache - General Chief Complaint: Headache Stated Complaint: HEAD,NECK PAIN Time Seen by Provider: 04/03/20 09:27 Notes: Patient is a 44-year-old male who presents emergency department with a chief complaint of a headache. Patient states that his headache starts on the left side of his posterior head and radiates forward. Patient denies any new weakness, or any other symptoms. Patient states that he has had his headache since his last visit here to the emergency department. Denies any blurred vision. States that his eyes are "bloodshot." Patient states that he is taking his medications as prescribed, except for the lisinopril, because it gives him a dry cough. States that he is taking metoprolol and amlodipine. Denies any numbness or tingling, weakness, slurred speech, or any other symptoms. Patient states that his family tells him that his speech is a lot slower than it was a while ago. TRAVEL OUTSIDE OF THE [place] IN LAST 30 DAYS: No - Related Data Allergies/Adverse Reactions: No Known Allergies Allergy (Verified 03/17/20 09:18) Past Medical History - Social History Smoking Status: Never Smoker Frequency of alcohol use: None Drug Abuse: None Family History: Reviewed & Not Pertinent, DM, Hyperlipidemia, Hypertension, Thyroid Disfunction - Past Medical History Cardiac Medical History: Reports: Hx Congestive Heart Failure, Hx Hypercholesterolemia, Hx Hypertension Denies: Hx Atrial Fibrillation, Hx Coronary Artery Disease, Hx DVT, Hx Heart Attack, Hx Pulmonary Embolism Pulmonary Medical History: Reports: Hx COPD, Hx Sleep Apnea Denies: Hx Asthma Neurological Medical History: Denies: Hx Seizures Endocrine Medical History: Reports: Hx Diabetes Mellitus Type 2, Hx Hyperthyroidism. Denies: Hx Diabetes Mellitus Type 1, Hx Hypothyroidism Renal/ Medical History: Denies: Hx Peritoneal Dialysis GI Medical History: Denies: Hx Cirrhosis, Hx Hepatitis Musculoskeletal Medical History: Reports Hx Arthritis, Reports Hx Gout Skin Medical History: Denies Hx Eczema, Denies Hx Psoriasis Psychiatric Medical History: Reports: Hx Anxiety, Hx Depression Infectious Medical History: Denies: Hx Hepatitis Past Surgical History: Reports: Hx Abdominal Surgery, Hx Orthopedic Surgery - Rt knee - Immunizations Hx Diphtheria, Pertussis, Tetanus Vaccination: Yes Review of Systems - Review of Systems Notes: REVIEW OF SYSTEMS: CONSTITUTIONAL : Denies recent illness. Denies recent unintentional weight loss. Denies fever, chills, or sweats. EENT: Denies eye, ear, throat, or mouth pain, discharge, or symptoms. Denies nasal or sinus congestion. CARDIOVASCULAR: Denies chest pain. RESPIRATORY: Denies shortness of breath, cough, congestion, difficulty breathing, or wheezing. GASTROINTESTINAL: Denies nausea, vomiting, and diarrhea. Denies abdominal pain. Denies constipation. GENITOURINARY: Denies difficulty urinating, burning, blood in urine, urgency or frequency. MUSCULOSKELETAL: Denies neck and back pain. Denies joint pain or swelling. SKIN: Denies rash, itchiness, or lesions HEMATOLOGIC : Denies easy bruising or bleeding. LYMPHATIC: Denies swollen, painful, enlarged glands. NEUROLOGICAL: See HPI. PSYCHIATRIC: Denies stress, anxiety, alteration in sleep patterns, or depression. All other systems reviewed and negative. Physical Exam - Vital signs Vitals: Temp Pulse Resp BP Pulse Ox 98.6 F 114 H 18 167/92 H 96 04/03/20 08:45 04/03/20 08:45 04/03/20 08:45 04/03/20 08:45 04/03/20 08:45 - Notes Notes: PHYSICAL EXAMINATION: GENERAL: Appears well, healthy, well-nourished, no acute distress. HEAD: Normocephalic, atraumatic. Tenderness noted to left posterior head. EYES: PERRL, conjunctiva normal, all extraocular movements intact, sclera n onicteric ENT: Moist mucous membranes. NECK: Supple, no noticeable swelling, redness, rash. Normal range of motion. LUNGS: Equal breath sounds bilaterally and clear to auscultation. No wheezes rales or rhonchi. CARDIOVASCULAR: S1-S2, regular rate, regular rhythm. Radial pulses 2+, normal. ABDOMEN: Normoactive bowel sounds. Soft, nontender, no guarding, no rebound tenderness, and no masses palpated. EXTREMITIES: Normal strength and range of motion, no pitting or edema. No cyanosis. NEUROLOGICAL: Moves all extremities upon command. Strength 5/5 in all extremities. PSYCH: Normal mood, normal affect. SKIN: Warm, dry. No rash, lesions, ulcerations noted. Normal skin turgor. Course - Re-evaluation Re-evalutation: 04/03/20 11:21 Patient states that he did not have any relief of his headache with Benadryl, Compazine, and IV fluids. We will give him 1 mg of Dilaudid. Patient had a CT of the head at his last visit, this was unremarkable.. Have a low suspicion for an intracranial bleed, or any life-threatening etiology at this time. 04/03/20 13:19 Patient states that he feels better after receiving a dose of Dilaudid. Patient does have some trace sphenoid sinus fluid. On physical exam, patient does have edema and erythema noted to his nasal mucosa. I will put him on Flonase and a course of Augmentin to treat a sinus infection. I have a low suspicion for any life-threatening etiology at this time. Follow-up precautions were given. Verbal discharge instructions were given to the patient. They verbalized understanding. They are stable for discharge. - Vital Signs Vital signs: Temp Pulse Resp BP Pulse Ox 98.2 F 90 16 164/102 H 97 04/03/20 15:18 04/03/20 15:18 04/03/20 15:18 04/03/20 15:18 04/03/20 15:18 - Laboratory Result Diagrams: 04/03/20 09:30 04/03/20 09:30 Laboratory results interpreted by me: 04/03/20 04/03/20 04/03/20 09:30 09:30 10:30 RDW 14.7 H Glucose 137 H Alkaline Phosphatase 154 H Total Protein 9.1 H Urine Protein 100 H Urine Blood SMALL H Ur Leukocyte Esterase TRACE H Discharge - Discharge Clinical Impression: Sinusitis Qualifiers: Sinusitis location: sphenoidal Chronicity: acute Recurrence: not specified as recurrent Qualified Code(s): J01.30 - Acute sphenoidal sinusitis, unspecified Headache Qualifiers: Headache type: unspecified Headache chronicity pattern: unspecified pattern Intractability: not intractable Qualified Code(s): R51 - Headache Condition: Stable Disposition: HOME, SELF-CARE Additional Instructions: You were seen today in the emergency department for a headache. You are being treated with antibiotics to treat a sinus infection. Please take all your antibiotics as prescribed. Make sure you finish all of them. Take pain medication as needed. Follow-up with a primary care provider. Continue to call around to see if you can establish a regular doctor. Prescriptions: Amoxicillin/Potassium Clav [Augmentin 875-125 Tablet] 1 tab PO Q12 #20 tablet Amoxicillin/Potassium Clav [Augmentin 875-125 Tablet] 1 tab PO BID #20 tab Fluticasone Propionate [Flonase Nasal [place] 50 Mcg/Soldier 16 gm] 1 spray NASL Q12 #1 inhaler Oxycodone HCl/Acetaminophen [Percocet 5-325 mg Tablet] 1 - 2 tab PO Q4H PRN #15 tablet PRN Reason:
[2020-04-03 10:18] LABS: ABSOLUTE BASOPHILS # (AUTO) 0.1 10^3/uL (0.0-0.2); ABSOLUTE EOSINOPHILS # (AUTO) 0.4 10^3/uL (0.0-0.6); ABSOLUTE LYMPHOCYTES (AUTO) 1.9 10^3/uL (0.5-4.7); ABSOLUTE MONOCYTES (AUTO) 0.6 10^3/uL (0.1-1.4); ABSOLUTE NEUT (AUTO) 6.6 10^3/uL (1.7-8.2); BASOPHILS % (AUTO) 0.8 % (0-2); EOSINOPHILS % (AUTO) 4.2 % (0-6); HEMATOCRIT 44.5 % (37.9-51.0); HEMOGLOBIN 15.2 g/dL (13.5-17.0); LYMPHOCYTES % (AUTO) 19.5 % (13-45); MEAN CORPUSCULAR HEMOGLOBIN 28.8 pg (27.0-33.4); MEAN CORPUSCULAR HGB CONC 34.1 g/dL (32.0-36.0); MEAN CORPUSCULAR VOLUME 85 fl (80-97); MONOCYTES % (AUTO) 6.4 % (3-13); PLATELET COUNT 298 10^3/uL (150-450); RED BLOOD COUNT 5.27 10^6/uL (4.35-5.55); RED CELL DISTRIBUTION WIDTH 14.7 % (11.5-14.0); SEGMENTED NEUTROPHILS % (AUTO) 69.1 % (42-78); TOTAL CELLS COUNTED % (AUTO) 100 %; WHITE BLOOD COUNT 9.5 10^3/uL (4.0-10.5)
[2020-04-03 10:34] LABS: ALBUMIN 4.4 g/dL (3.5-5.0); ALKALINE PHOSPHATASE 154 U/L (38-126); ANION GAP 12 (5-19); ASPARTATE AMINO TRANSFERASE 41 U/L (17-59); BILIRUBIN,DIRECT 0.4 mg/dL (0.0-0.4); BILIRUBIN,TOTAL 0.5 mg/dL (0.2-1.3); BLOOD UREA NITROGEN 15 mg/dL (7-20); CALCIUM 9.8 mg/dL (8.4-10.2); CARBON DIOXIDE 28 mmol/L (22-30); CHLORIDE 101 mmol/L (98-107); GLUCOSE 137 mg/dL (75-110); POTASSIUM 4.3 mmol/L (3.6-5.0); TOTAL PROTEIN 9.1 g/dL (6.3-8.2)
[2020-04-03 11:04] LABS: APPEARANCE,URINE CLEAR; BILIRUBIN,URINE NEGATIVE (NEGATIVE); COLOR,URINE YELLOW; GLUCOSE, URINE NEGATIVE (NEGATIVE); KETONES,URINE NEGATIVE (NEGATIVE); LEUKOCYTE ESTERASE,URINE TRACE (NEGATIVE); NITRITE,URINE NEGATIVE (NEGATIVE); PROTEIN,URINE 100 mg/dL (NEGATIVE); URINE SPECIFIC GRAVITY 1.013; UROBILINOGEN,URINE NEGATIVE mg/dL (<2.0)
[2020-04-03] MEDS ORDERED: HYDROMORPHONE HCL INJ/PF 2 MG/ML AMPULE IV ONE (11:20)
[2020-04-03 15:20] VITALS: BP 164/102
== END 2020-04-03 15:18 | disposition home or self-care (01) ==
LOC: ER 08:41
DX: J01.30 Acute sphenoidal sinusitis, unspecified (principal); R51 Headache; M54.2 Cervicalgia; Z79.899 Other long term (current) drug therapy; I50.9 Heart failure, unspecified; I11.0 Hypertensive heart disease with heart failure; J44.9 Chronic obstructive pulmonary disease, unspecified; E11.9 Type 2 diabetes mellitus without complications
CPT/HCPCS: 99284; 96361; 96374; 96375; 36415; 85025; 80053; 81001; J1200; J1170; J0780; J7030

== ENCOUNTER 2020-04-17 10:19 | Emergency (ER) | payer SELFPAY ==
[2020-04-17] MEDS ORDERED: KETOROLAC TROMETHAMINE INJ/PF 30 MG/1 ML SDV IV ONE (10:35)
[2020-04-17] MEDS ORDERED: DIPHENHYDRAMINE HCL 50 MG/ML VIAL IV ONE (10:36)
[2020-04-17] MEDS ORDERED: METOCLOPRAMIDE HCL INJ/PF 10 MG/2 ML SDV IV ONE (10:36)
--- NOTE | 2020-04-17 10:37 | ER Document Report ---
ED Medical Screen (RME) - General Chief Complaint: Neck and Upper Back Pain Stated Complaint: NECK PAIN Time Seen by Provider: 04/17/20 10:34 Mode of Arrival: Ambulatory Information source: Patient Notes: Patient presents complaining of right-sided headache off and on for the past month. Patient states headache pain started 3 days ago. Patient reports nausea and occasional dizziness. Patient reports a history of hypertension, diabetes, gout, and COPD. I have greeted and performed a rapid initial assessment of this patient. A comprehensive ED assessment and evaluation of the patient, analysis of test results and completion of the medical decision making process will be conducted by additional ED providers. TRAVEL OUTSIDE OF THE [place] IN LAST 30 DAYS: No - Related Data Allergies/Adverse Reactions: No Known Allergies Allergy (Verified 04/17/20 10:31) Past Medical History - Past Medical History Cardiac Medical History: Reports: Hx Congestive Heart Failure, Hx Hypercholesterolemia, Hx Hypertension Denies: Hx Atrial Fibrillation, Hx Coronary Artery Disease, Hx DVT, Hx Heart Attack, Hx Pulmonary Embolism Pulmonary Medical History: Reports: Hx COPD, Hx Sleep Apnea Denies: Hx Asthma Neurological Medical History: Denies: Hx Seizures Endocrine Medical History: Reports: Hx Diabetes Mellitus Type 2, Hx Hyperthyroidism. Denies: Hx Diabetes Mellitus Type 1, Hx Hypothyroidism Renal/ Medical History: Denies: Hx Peritoneal Dialysis GI Medical History: Denies: Hx Cirrhosis, Hx Hepatitis Musculoskeltal Medical History: Reports Hx Arthritis, Reports Hx Gout Skin Medical History: Denies Hx Eczema, Denies Hx Psoriasis Psychiatric Medical History: Reports: Hx Anxiety, Hx Depression Infectious Medical History: Denies: Hx Hepatitis Past Surgical History: Reports: Hx Abdominal Surgery, Hx Orthopedic Surgery - Rt knee - Immunizations Hx Diphtheria, Pertussis, Tetanus Vaccination: Yes Physical Exam - Vital signs Vitals: Temp Pulse Resp BP Pulse Ox 99.5 F 98 20 147/91 H 95 04/17/20 10:04/17/20 10:04/17/20 10:04/17/20 10:04/17/20 10:25 - Neurological Neuro grossly intact: Yes Cognition: Normal [place] Coma Scale Eye Opening: Spontaneous [place] Coma Scale Verbal: Oriented [place] Coma Scale Motor: Obeys Commands [place] Coma Scale Total: 15 Course - Vital Signs Vital signs: Temp Pulse Resp BP Pulse Ox 99.5 F 98 20 147/91 H 95 04/17/20 10:25 04/17/20 10:25 04/17/20 10:25 04/17/20 10:04/17/20 10:25
[2020-04-17] MEDS ORDERED: HYDROMORPHONE HCL INJ/PF 2 MG/ML AMPULE IV PRN (12:05)
--- NOTE | 2020-04-17 12:17 | ER Document Report ---
Entered by ZULEYKA DAVIS SCRIBE 04/17/20 1121 Acting as scribe for:AUGUST VILLANUEVA MD ED Headache - General Chief Complaint: Headache Stated Complaint: NECK PAIN Time Seen by Provider: 04/17/20 10:34 Mode of Arrival: Ambulatory Information source: Patient Notes: This 44-year-old male patient with frequent headaches presents to the emergency department today with complaints of a headache. Patient has been seen here multiple times in the last few months for headaches. He has had multiple unremarkable CT scans of the head. He indicates the area of pain is in the right posterior head and he describes it as "someone beating me in the head". TRAVEL OUTSIDE OF THE [place] IN LAST 30 DAYS: No - Related Data Allergies/Adverse Reactions: No Known Allergies Allergy (Verified 04/17/20 10:31) Past Medical History - General Information source: Patient - Social History Smoking Status: Former Smoker Cigarette use (# per day): No Frequency of alcohol use: None Drug Abuse: None Lives with: Family Family History: Reviewed & Not Pertinent, DM, Hyperlipidemia, Hypertension, Thyroid Disfunction Patient has homicidal ideation: No - Past Medical History Cardiac Medical History: Reports: Hx Congestive Heart Failure, Hx Hypercholesterolemia, Hx Hypertension Pulmonary Medical History: Reports: Hx COPD, Hx Sleep Apnea Neurological Medical History: Reports: Other - Chronic headaches Endocrine Medical History: Reports: Hx Diabetes Mellitus Type 2, Hx Hyperthyroidism Musculoskeletal Medical History: Reports Hx Arthritis, Reports Hx Gout Psychiatric Medical History: Reports: Hx Anxiety, Hx Depression Past Surgical History: Reports: Hx Abdominal Surgery, Hx Orthopedic Surgery - Rt knee - Immunizations Hx Diphtheria, Pertussis, Tetanus Vaccination: Yes Review of Systems - Review of Systems Constitutional: No symptoms reported EENT: No symptoms reported Cardiovascular: No symptoms reported Respiratory: No symptoms reported Gastrointestinal: No symptoms reported Genitourinary: No symptoms reported Male Genitourinary: No symptoms reported Musculoskeletal: No symptoms reported Skin: No symptoms reported Hematologic/Lymphatic: No symptoms reported Neurological/Psychological: See HPI, Headaches -: Yes All other systems reviewed and negative Physical Exam - Vital signs Vitals: Temp Pulse Resp BP Pulse Ox 99.5 F 98 20 147/91 H 95 04/17/20 10:25 04/17/20 10:25 04/17/20 10:25 04/17/20 10:25 09/12/20 10:25 - Notes Notes: Physical Exam: General: Alert, appears well. HEENT: Normocephalic. Atraumatic. PERRL. Extraocular movements intact. Oropharynx clear. Neck: Supple. Non-tender. Respiratory: No respiratory distress. Clear and equal breath sounds bilaterally. Cardiovascular: Regular rate and rhythm. Abdominal: Normal Inspection. Non-tender. No distension. Normal Bowel Sounds. Back: No gross abnormalities. Extremities: Moves all four extremities. Upper extremities: Normal inspection. Normal ROM. Lower extremities: Normal inspection. No edema. Normal ROM. Neurological: Normal cognition. AAOx4. Normal speech. Psychological: Normal affect. Normal Mood. Skin: Warm. Dry. Normal color. Course - Re-evaluation Re-evalutation: 04/17/20 12:09 Patient resting in chair have received IV pain medications for migrainous type headache. Patient states his headache is improved but not completely gone. Patient - Vital Signs Vital signs: Temp Pulse Resp BP Pulse Ox 99.5 F 98 20 147/91 H 95 04/17/20 10:25 04/17/20 10:25 04/17/20 10:25 04/17/20 10:25 04/17/20 10:25 Discharge - Discharge Clinical Impression: Recurrent occipital headache, Cervical paraspinous muscle spasm Condition: Stable Disposition: HOME, SELF-CARE Instructions: Headache ([facility]) Additional Instructions: Muscle Relaxers Muscle relaxing medications are usually prescribed for acute muscle spasm or injury to the neck and back. They are often combined with antiinflammatory pain medication for increased relief. You may stop the muscle relaxer when the pain and stiffness have improved. Start the medication again if spasms recur. Muscle relaxers may cause drowsiness, especially with the first dose. Do not operate machinery or drive while under the effects of the medication. Most muscle relaxers last up to 24 hours. Do not combine the medication with alcohol.Muscle Strain You have strained a muscle -- torn the fibers within the muscle. This often occurs with strenuous exertion, or during an injury that suddenly stretches the muscle. The seriousness of a strain varies. Some strains heal within days, others cause problems for months. X-rays cannot show a muscle strain. X-rays are taken only if symptoms suggest that a fracture could be present. The usual treatment of a muscle strain is rest and ice packs. Sometimes, a sling, splint, or crutches may be necessary to rest the muscle. The muscle can be used again once pain subsides. Severe strains require a special exercise and stretching program to prevent permanent stiffness and disability. Your doctor will advise you if this will be necessary. Call the doctor immediately if pain or swelling becomes severe, or if numbness or discoloration develop. Prescriptions: Baclofen [Baclofen 10 mg Tablet] 10 mg PO QHS PRN #10 tablet PRN Reason: prn muscle spasm Butalb/Acetaminophen/Caffeine [Fioricet (50-325-40 mg) Tablet] 1 tab PO Q4H #20 tab I personally performed the services described in the documentation, reviewed and edited the documentation which was dictated to the scribe in my presence, and it accurately records my words and actions.
[2020-04-17 13:36] VITALS: BP 145/92
== END 2020-04-17 15:00 | disposition home or self-care (01) ==
LOC: ER 10:19
DX: M62.838 Other muscle spasm (principal); R51 Headache; M54.2 Cervicalgia; Z87.891 Personal history of nicotine dependence; I50.9 Heart failure, unspecified; I11.0 Hypertensive heart disease with heart failure; J44.9 Chronic obstructive pulmonary disease, unspecified; E11.9 Type 2 diabetes mellitus without complications
CPT/HCPCS: 99284; 96374; J1200; J1885; J2765; J1170

== ENCOUNTER 2020-06-03 07:41 | Inpatient (IN) | payer SELFPAY ==
[2020-06-03] MEDS ORDERED: NORMAL SALINE 1000 ML 1,000 ML IV ONE (08:31)
[2020-06-03 09:20] LABS: ALBUMIN 4.1 g/dL (3.5-5.0); ALKALINE PHOSPHATASE 118 U/L (38-126); ANION GAP 12 (5-19); ASPARTATE AMINO TRANSFERASE 25 U/L (17-59); BILIRUBIN,DIRECT 0.1 mg/dL (0.0-0.4); BILIRUBIN,TOTAL 1.6 mg/dL (0.2-1.3); BLOOD UREA NITROGEN 14 mg/dL (7-20); CARBON DIOXIDE 27 mmol/L (22-30); CHLORIDE 101 mmol/L (98-107); GLUCOSE 132 mg/dL (75-110); POTASSIUM 3.8 mmol/L (3.6-5.0); TOTAL PROTEIN 8.6 g/dL (6.3-8.2)
[2020-06-03] MEDS ORDERED: CEFTRIAXONE 2 GM/D5W RTU 2 GM/50 ML RTUPB IV ONE (09:24)
[2020-06-03] MEDS ORDERED: AZITHROMYCIN 250 MG TABLET PO ONE (09:25)
[2020-06-03 09:29] LABS: TROPONIN I 0.026 ng/mL
--- NOTE | 2020-06-03 09:49 | RADIOLOGY REPORT (SQ) ---
EXAM DESCRIPTION: CT ABD/PELVIS NO ORAL OR IV IMAGES COMPLETED DATE/TIME: 06/03/2020 9:20 am REASON FOR STUDY: pain COMPARISON: None. TECHNIQUE: CT scan of the abdomen and pelvis performed without intravenous or oral contrast. Images reviewed with lung, soft tissue, and bone windows. Reconstructed coronal and sagittal MPR images revi ewed. All images stored on PACS. All CT scanners at this facility use dose modulation, iterative reconstruction, and/or weight based d osing when appropriate to reduce radiation dose to as low as reasonably achievable (ALARA). [facility]: Dose Right [facility]: CareDose [facility]: Dose Right [facility]: Teradose 4D [facility]: Smart Inform [employer] RADIATION DOSE: CT Rad equipment meets quality standard of care and radiation dose reduction techniq ues were employed. CTDIvol: 18.8 mGy. DLP: 1018 mGy-cm.mGy. LIMITATIONS: Streak artifact through the liver from arms at the patient's sides. No IV or oral cont rast. FINDINGS: LOWER CHEST: There is dense consolidation at both lung bases worrisome for multifocal pneu monia. NON-CONTRASTED LIVER, SPLEEN, ADRENALS: Evaluation limited by lack of IV contrast. No identified sign ificant masses. PANCREAS: No masses. No peripancreatic inflammatory changes. GALLBLADDER: No identified stones by CT criteria. No inflammatory changes to suggest cholecystitis. RIGHT KIDNEY AND URETER: No suspicious masses. Assessment limited by lack of IV contrast. No signif icant calcifications. No hydronephrosis or hydroureter. LEFT KIDNEY AND URETER: No suspicious masses. Assessment limited by lack of IV contrast. No signifi cant calcifications. No hydronephrosis or hydroureter. AORTA AND RETROPERITONEUM: No aneurysm. No retroperitoneal masses or adenopathy. BOWEL AND PERITONEAL CAVITY: No obvious masses or inflammatory changes. No free fluid. APPENDIX: Normal. PELVIS, BLADDER, AND ABDOMINAL WALL:No abnormal masses. No free fluid. Bladder normal. BONES: No significant findings. OTHER: No other significant finding. IMPRESSION: Bibasilar consolidation worrisome for pneumonia. COMMENT: Quality ID # [id number]: Final reports with documentation of one or more dose reduction techniques (e.g., Automated exposure control, adjustment of the mA and/or kV according to patient size, use of iterative reconstruction technique) TECHNICAL DOCUMENTATION: JOB ID: [id number] [employer]- All Rights Reserved Reading location - IP/workstation name: [email or web address]
--- NOTE | 2020-06-03 09:53 | RADIOLOGY REPORT (SQ) ---
EXAM DESCRIPTION: CHEST SINGLE VIEW IMAGES COMPLETED DATE/TIME: 06/03/2020 9:21 am REASON FOR STUDY: sob COMPARISON: Chest film 03/28/2020, 11/18/2019 EXAM PARAMETERS: NUMBER OF VIEWS: One view. TECHNIQUE: Single frontal radiographic view of the chest acquired. RADIATION DOSE: NA LIMITATIONS: None. FINDINGS: LUNGS AND PLEURA: No opacities, masses or pneumothorax. No pleural effusion. MEDIASTINUM AND HILAR STRUCTURES: No masses. Contour normal. HEART AND VASCULAR STRUCTURES: Heart normal in size. Normal vasculature. BONES: No acute findings. HARDWARE: None in the chest. OTHER: No other significant finding. IMPRESSION: NO ACUTE RADIOGRAPHIC FINDING IN THE CHEST. TECHNICAL DOCUMENTATION: JOB ID: [id number] 2010 [employer]- All Rights Reserved Reading location - IP/workstation name: [email or web address]
[2020-06-03 10:19] LABS: ABSOLUTE BASOPHILS # (AUTO) 0.1 10^3/uL (0.0-0.2); ABSOLUTE EOSINOPHILS # (AUTO) 0.2 10^3/uL (0.0-0.6); ABSOLUTE LYMPHOCYTES (AUTO) 1.7 10^3/uL (0.5-4.7); ABSOLUTE MONOCYTES (AUTO) 1.2 10^3/uL (0.1-1.4); ABSOLUTE NEUT (AUTO) 8.3 10^3/uL (1.7-8.2); BASOPHILS % (AUTO) 0.6 % (0-2); EOSINOPHILS % (AUTO) 1.9 % (0-6); HEMATOCRIT 41.1 % (37.9-51.0); HEMOGLOBIN 14.5 g/dL (13.5-17.0); MEAN CORPUSCULAR HEMOGLOBIN 29.1 pg (27.0-33.4); MEAN CORPUSCULAR HGB CONC 35.3 g/dL (32.0-36.0); MEAN CORPUSCULAR VOLUME 83 fl (80-97); MONOCYTES % (AUTO) 10.7 % (3-13); PLATELET COUNT 211 10^3/uL (150-450); RED BLOOD COUNT 4.99 10^6/uL (4.35-5.55); RED CELL DISTRIBUTION WIDTH 15.6 % (11.5-14.0); SEGMENTED NEUTROPHILS % (AUTO) 71.8 % (42-78); TOTAL CELLS COUNTED % (AUTO) 100 %; WHITE BLOOD COUNT 11.6 10^3/uL (4.0-10.5)
--- NOTE | 2020-06-03 10:26 | ER Document Report ---
ED General - General Chief Complaint: Shortness Of Breath Stated Complaint: DIFFICULTY BREATHING Time Seen by Provider: 06/03/20 08:27 Information source: Patient TRAVEL OUTSIDE OF THE [place] IN LAST 30 DAYS: No - HPI Notes: Patient presents with severe right side pain. He states this started yesterday. He states it is constant and severe. Is worse with deep breath and better with rest. It radiates into his right lower abdomen. As well as up into his right chest. Patient has had a cough and also feels short of breath. The pain is been sharp. He states he has felt warm and been sweating. No vomiting or diarrhea. No known Covid exposures. - Related Data Allergies/Adverse Reactions: No Known Allergies Allergy (Verified 06/03/20 08:12) Home Medications: copd Past Medical History - General Information source: Patient - Social History Smoking Status: Former Smoker Chew tobacco use (# tins/day): No Frequency of alcohol use: None Drug Abuse: None Family History: Reviewed & Not Pertinent, DM, Hyperlipidemia, Hypertension, Thyroid Disfunction Patient has homicidal ideation: No - Past Medical History Cardiac Medical History: Reports: Hx Congestive Heart Failure, Hx Hypercholesterolemia, Hx Hypertension Denies: Hx Atrial Fibrillation, Hx Coronary Artery Disease, Hx DVT, Hx Heart Attack, Hx Pulmonary Embolism Pulmonary Medical History: Reports: Hx COPD, Hx Sleep Apnea Denies: Hx Asthma Neurological Medical History: Denies: Hx Seizures Endocrine Medical History: Reports: Hx Diabetes Mellitus Type 2, Hx Hyperthyroidism. Denies: Hx Diabetes Mellitus Type 1, Hx Hypothyroidism Renal/ Medical History: Denies: Hx Peritoneal Dialysis GI Medical History: Denies: Hx Cirrhosis, Hx Hepatitis Musculoskeletal Medical History: Reports Hx Arthritis, Reports Hx Gout Skin Medical History: Denies Hx Eczema, Denies Hx Psoriasis Psychiatric Medical History: Reports: Hx Anxiety, Hx Depression Infectious Medical History: Denies: Hx Hepatitis Past Surgical History: Reports: Hx Abdominal Surgery, Hx Orthopedic Surgery - Rt knee - Immunizations Hx Diphtheria, Pertussis, Tetanus Vaccination: Yes Review of Systems - Review of Systems Constitutional: Chills, Fever, Malaise Cardiovascular: Chest pain. denies: Palpitations Respiratory: Cough, Short of breath -: Yes All other systems reviewed and negative Physical Exam - Vital signs Vitals: Temp Pulse Resp BP Pulse Ox 98.9 F 111 H 24 H 169/106 H 93 06/03/20 07:47 06/03/20 07:47 06/03/20 07:47 06/03/20 07:47 06/03/20 07:47 Interpretation: Hypertensive, Tachycardic - General General appearance: Alert, Anxious - HEENT Head: Normocephalic, Atraumatic Eyes: Normal Pupils: PERRL - Respiratory Respiratory status: No respiratory distress Chest status: Nontender Breath sounds: Decreased air movement, Rhonchi Chest palpation: Normal - Cardiovascular Rhythm: Tachycardia Heart sounds: Normal auscultation Murmur: No - Abdominal Inspection: Normal Distension: Distended Bowel sounds: Normal Tenderness: Tender - diffuse Organomegaly: No organomegaly - Back Back: Normal, Nontender - Extremities General upper extremity: Normal inspection, Nontender, Normal color, Normal ROM, Normal temperature General lower extremity: Normal inspection, Nontender, Normal color, Normal ROM, Normal temperature, Normal weight bearing. No: Gael's sign - Neurological Neuro grossly intact: Yes Cognition: Normal Orientation: AAOx4 [place] Coma Scale Eye Opening: Spontaneous [place] Coma Scale Verbal: Oriented [place] Coma Scale Motor: Obeys Commands Noreen Coma Scale Total: 15 Speech: Normal Motor strength normal: LUE, RUE, LLE, RLE Sensory: Normal - Psychological Associated symptoms: Agitated, Anxious - Skin Skin Temperature: Warm Skin Moisture: Diaphoretic Skin Color: Normal Course - Re-evaluation Re-evalutation: 06/03/20 10:22 Patient presents with shortness of breath right-sided chest pain and right upper abdominal pain. He is also diaphoretic unable to lay flat. He is tachycardic and hypertensive. CT shows bilateral basilar consolidation. He has been tested for Covid but has no known exposures at this time. Patient obviously has bilateral pneumonia. Will be started antibiotics and admitted to the hospital. The patient was evaluated during a global COVID-19 pandemic and that diagnosis was suspected/considered upon their initial presentation. Their evaluation, treatment and testing was consistent with current guidelines for patients who present with complaints or symptoms and may be related to COVID-19. - Vital Signs Vital signs: Temp Pulse Resp BP Pulse Ox 98.9 F 111 H 24 H 169/106 H 93 06/03/20 08:12 06/03/20 07:47 06/03/20 07:47 06/03/20 07:47 06/03/20 08:48 - Laboratory Result Diagrams: 06/03/20 08:38 06/03/20 08:38 Laboratory results interpreted by me: 06/03/20 08:38 Glucose 132 H Total Bilirubin 1.6 H Total Protein 8.6 H - Diagnostic Test Radiology reviewed: Image reviewed, Reports reviewed - EKG Interpretation by Me EKG shows normal: Sinus rhythm Rate: Tachycardia - 106 Rhythm: NSR [place]/QRS: Left axis deviation Discharge - Discharge Clinical Impression: Person under investigation for COVID-19 Pneumonia Qualifiers: Pneumonia type: due to unspecified organism Laterality: bilateral Lung location: lower lobe of lung Qualified Code(s): J18.9 - Pneumonia, unspecified organism Condition: Serious Disposition: ADMITTED INPATIENT Admitting Provider: Yuko (Hospitalist) Unit Admitted: Telemetry
--- NOTE | 2020-06-03 13:25 | EKG REPORT ---
SEVERITY:- ABNORMAL ECG - SINUS TACHYCARDIA PROBABLE LEFT ATRIAL ABNORMALITY BORDERLINE LEFT AXIS DEVIATION CONSIDER ANTEROSEPTAL INFARCT : Confirmed by: Daniel Herndon MD 03-Jun-2020 13:25:11
[2020-06-03] MEDS ORDERED: BUDESONIDE NEB 0.5 MG/2 ML AMPUL NEB ONE ×2 (14:17→14:23)
[2020-06-03] MEDS ORDERED: METHYLPREDNISOLONE INJ 125 MG/2 ML SDV IV ONE (14:17)
[2020-06-03] MEDS ORDERED: IPRATROPIUM/ALBUTEROL 0.5-2.5 MG/3 ML AMPUL NEB ONE ×2 (14:17→14:22)
[2020-06-03] MEDS ORDERED: HYDRALAZINE HCL INJ/PF 20 MG/1 ML SDV IV ONE (14:18)
[2020-06-03] MEDS ORDERED: MORPHINE SULFATE 10 MG/ML INJ IV ONE (14:22)
[2020-06-03] MEDS ORDERED: METOPROLOL TARTRATE PF/INJ 5 MG/5 ML SDV IV ONE (14:22)
[2020-06-03] MEDS ORDERED: METHYLPREDNISOLONE INJ 125 MG/2 ML SDV ONE (14:23)
[2020-06-03] MEDS ORDERED: NITROGLYCERIN 5 MG (0.2 MG/HR) PATCH.TD24 TD ONE (14:23)
[2020-06-03] MEDS ORDERED: ASPIRIN 325 MG TABLET PO ONE (14:23)
[2020-06-03] MEDS ORDERED: HYDRALAZINE HCL INJ/PF 20 MG/1 ML SDV ONE ×2 (14:23→17:23)
[2020-06-03] MEDS ORDERED: ACETAMINOPHEN 325 MG TABLET PO PRN (14:47)
[2020-06-03] MEDS ORDERED: GUAIFENESIN SYRP 200 MG/10 ML UDC PO PRN (14:47)
[2020-06-03] MEDS ORDERED: MORPHINE SULFATE 10 MG/ML INJ IV PRN (15:01)
[2020-06-03] MEDS ORDERED: NITROGLYCERIN 0.4 MG/TAB 25 TAB/BOTTLE SL PRN (15:03)
[2020-06-03] MEDS ORDERED: NICOTINE 14 MG/24 HR PATCH.TD24 TD PRN (15:04)
[2020-06-03] MEDS ORDERED: DEXTROSE 50%-WATER 25 GM/50 ML DISP.SYRIN IV PRN ×2 (15:20)
[2020-06-03] MEDS ORDERED: GLUCAGON,HUMAN RECOMB 1 MG INJ IM PRN (15:20)
[2020-06-03] MEDS ORDERED: DEXTROSE 40% GEL 15 GM TUBE PO PRN ×2 (15:20)
--- NOTE | 2020-06-03 15:20 | PDOC H&P ---
History of Present Illness Admission Date/PCP: 06/03/20 10:47 Patient complains of: Marked shortness of breath History of Present Illness: History and physical was somewhat abbreviated due to the patient's respiratory status with tachypnea JOSÉ ANTONIO CRISOSTOMO is a 45 year old male who does not have a primary care provider. He is morbidly obese and states that in the past he has had a cardiac catheterization in [place] (no stenosis noted) and carries a diagnosis of COPD and hypertension. He has not established with a primary care provider locally and has been out of all of his medications. He was unable to tell me his medications due to severe dyspnea. It was also noted that he was markedly hypertensive and very uncomfortable. Laboratory studies revealed a white blood cell count of 11.6 with a normal hemoglobin and platelet count. Serum bench chemist hussein revealed a slightly elevated glucose at 132, normal electrolytes and a total bilirubin of 1.6. Brain natruretic peptide was only 49 and the first troponin was 0.026. He actually denies chest pain. He states that he had been on a breathing machine once before but could not provide details. He has already received doses of ceftriaxone and azithromycin as well as nebulizer treatment in the emergency department. Past Medical History Cardiac Medical History: Reports: Congestive Heart Failure, Hyperlipidema, Hypertension Denies: Atrial Fibrillation, Coronary Artery Disease, DVT, Myocardial Infarction, Pulmonary Embolism Pulmonary Medical History: Reports: Chronic Obstructive Pulmonary Disease (COPD), Sleep Apnea Denies: Asthma Neurological Medical History: Denies: Seizures Endocrine Medical History: Reports: Diabetes Mellitus Type 2, Hyperthyroidism Denies: Diabetes Mellitus Type 1, Hypothyroidism GI Medical History: Denies: Cirrhosis, Hepatitis Musculoskeltal Medical History: Reports: Arthritis, Gout Skin Medical History: Denies: Eczema, Psoriasis Psychiatric Medical History: Reports: Depression Hematology: Denies: Anemia, Bleeding Tendencies Past Surgical History Past Surgical History: Reports: Cardiac Catheterization, Orthopedic Surgery - Rt knee Social History Information Source: Patient Lives with: Other - Unknown Smoking Status: Former Smoker Electronic Cigarette use?: No Frequency of Alcohol Use: Occasional Hx Recreational Drug Use: No Drugs: None Hx Prescription Drug Abuse: No - Advance Directive Resuscitation Status: Full Code Family History Family History: DM, Hyperlipidemia, Hypertension, Thyroid Disfunction Parental Family History Reviewed: Yes Children Family History Reviewed: Yes Sibling(s) Family History Reviewed.: Yes Medication/Allergy Home Medications: No Home Medications 06/03/20 Allergies/Adverse Reactions: No Known Allergies Allergy (Verified 06/03/20 16:36) Review of Systems All systems: reviewed and no additional remarkable complaints except as stated Review of Systems: Limited review of systems due to severe tachypnea Cardiovascular: PRESENT: dyspnea on exertion, other - Tachycardia Respiratory: PRESENT: dyspnea - With tachypnea and marked increased work of breathing Neurological: PRESENT: abnormal speech - Secondary to severe tachypnea/dyspnea Physical Exam Vital Signs: Temp Pulse Resp BP Pulse Ox 98.9 F 111 H 28 H 159/104 H 95 06/03/20 08:12 06/03/20 07:47 06/03/20 13:01 06/03/20 13:01 06/03/20 13:01 Intake & Output 06/02/20 06/03/20 06/04/20 06:59 06:59 06:59 Intake Total 1050 Balance 1050 Weight 109 kg General appearance: PRESENT: cooperative - Patient cooperated as best he could consider in his clinical condition, morbidly obese, severe distress, well- developed Head exam: PRESENT: atraumatic, normocephalic Eye exam: PRESENT: conjunctiva pink. ABSENT: scleral icterus Ear exam: PRESENT: normal external ear exam. ABSENT: bleeding, drainage Mouth exam: PRESENT: dry mucosa, tongue midline Neck exam: ABSENT: carotid bruit, JVD, lymphadenopathy, tracheostomy Respiratory exam: PRESENT: decreased breath sounds - At bases, prolonged expiratory phas, symmetrical, tachypnea. ABSENT: stridor, wheezes Cardiovascular exam: PRESENT: +S1, +S2, tachycardia. ABSENT: bradycardia, diastolic murmur, irregular rhythm, systolic murmur GI/Abdominal exam: PRESENT: hypoactive bowel sounds, soft, other - Protuberant abdomen. ABSENT: tenderness Rectal exam: PRESENT: deferred Gentrourinary exam: ABSENT: indwelling catheter Extremities exam: ABSENT: calf tenderness, joint swelling, pedal edema Musculoskeletal exam: PRESENT: ambulatory, normal inspection. ABSENT: deformity, dislocation Neurological exam: PRESENT: alert, awake, oriented to person, oriented to place, oriented to time, oriented to situation, CN II-XII grossly intact. ABSENT: altered Psychiatric exam: PRESENT: anxious, appropriate affect - Affect reflects his significant illness. ABSENT: agitated Focused psych exam: ABSENT: delusional, paranoid, restlessness Skin exam: PRESENT: dry, normal color, warm. ABSENT: rash Results Laboratory Results: 06/03/20 10:03 06/03/20 08:38 06/03/20 06/03/20 06/03/20 08:38 08:38 08:38 WBC Cancelled RBC Cancelled Hgb Cancelled Hct Cancelled MCV Cancelled MCH Cancelled MCHC Cancelled RDW Cancelled Plt Count Cancelled Seg Neutrophils % Cancelled Sodium 139.7 Potassium 3.8 Chloride 101 Carbon Dioxide 27 Anion Gap 12 BUN 14 Creatinine 0.83 Est GFR ( Amer) > 60 Glucose 132 H Lactic Acid 1.2 Calcium 9.0 Total Bilirubin 1.6 H AST 25 Alkaline Phosphatase 118 Total Protein 8.6 H Albumin 4.1 06/03/20 10:03 WBC 11.6 H RBC 4.99 Hgb 14.5 Hct 41.1 MCV 83 MCH 29.1 MCHC 35.3 RDW 15.6 H Plt Count 211 Seg Neutrophils % 71.8 Sodium Potassium Chloride Carbon Dioxide Anion Gap BUN Creatinine Est GFR ( Amer) Glucose Lactic Acid Calcium Total Bilirubin AST Alkaline Phosphatase Total Protein Albumin 06/03/20 08:38 Troponin I 0.026 NT-Pro-B Natriuret Pep 49 Impressions: Chest X-Ray 06/03/20 08:24 IMPRESSION: NO ACUTE RADIOGRAPHIC FINDING IN THE CHEST. Abdomen/Pelvis CT 06/03/20 08:32 IMPRESSION: Bibasilar consolidation worrisome for pneumonia. Assessment and Plan - Diagnosis (1) Acute respiratory failure with hypoxia Is this a current diagnosis for this admission?: Yes (2) Bilateral pneumonia Qualifiers: Pneumonia type: due to unspecified organism Lung location: lower lobe of lung Qualified Code(s): J18.9 - Pneumonia, unspecified organism Is this a current diagnosis for this admission?: Yes (3) Acute exacerbation of chronic obstructive pulmonary disease (COPD) Is this a current diagnosis for this admission?: Yes (4) Hypertensive emergency Is this a current diagnosis for this admission?: Yes (5) Tachycardia Is this a current diagnosis for this admission?: Yes (6) Abnormal electrocardiogram Is this a current diagnosis for this admission?: Yes (7) Hyperglycemia due to type 2 diabetes mellitus Qualifiers: Diabetes mellitus oil heaterman insulin use: without oil heaterman use Qualified Code(s): E11.65 - Type 2 diabetes mellitus with hyperglycemia Is this a current diagnosis for this admission?: Yes (8) Obstructive sleep apnea of adult Is this a current diagnosis for this admission?: Yes (9) Morbid obesity with BMI of 40.0-44.9, adult Is this a current diagnosis for this admission?: Yes - Plan Summary Summary: 06/03/2020 Acute hypoxic respiratory failure with pneumonia The patient reports being tested for Covid twice. The last test was approximately 1 month ago. He does have bilateral pneumonia. I will check ferritin, LDH, CRP and D-dimer. Based on results I will counseled the patient with regard to retesting during this admission. He will be treated as a patient under investigation regardless. He will be placed on ceftriaxone and azithromycin. I have taken the liberty of starting vitamin C, vitamin D, zinc and melatonin as well. Oxygen supplement to keep oxygen saturation between 90 and 94% considering his history of COPD. Exacerbation of COPD Scheduled and as needed nebulizers including Xopenex, ipratropium and budesonide. Intravenous steroids as well. Hypertensive emergency The patient's records indicate a cardiac catheterization. There is also mention of congestive heart failure. I am going to institute metoprolol and amlodipine as well as aspirin daily. He does not appear to be fluid overloaded and I will hold on diuretics at this time. During this hospitalization we will certainly obtain an echocardiogram and adjust medications accordingly. I have ordered a brain natruretic peptide as well. Tachycardia This should improve as his respiratory status improves. Monitor on telemetry at this time Abnormal EKG The patient was tachycardic and showed borderline ST changes that could be related to strain under the circumstances. We will trend troponins and repeat EKG in the morning. Hyperglycemia due to diabetes mellitus type 2 The patient will be on a controlled carbohydrate level for diet. I will institute Accu-Cheks at meals and bedtime with an aggressive Humalog sliding scale. Will review sliding scale requirements and consider adding oral medications or long-acting insulin Obstructive sleep apnea The patient does not wear CPAP at home. I explained that I am going to put him on CPAP at night. This will make him feel better. The patient actually admits that he does not sleep well at all and that he tosses and turns and does not wake up feeling refreshed. He does experience daytime somnolence. Morbid obesity BMI is 40. Reviewed how sleep apnea could contribute to obesity and obesity's additional risk factors for hypertension and heart disease as well as diabetes and respiratory failure if the obesity causes alveolar hypoventilation. The patient needs to consider aggressive diet management and initiate exercise program Multiple other diagnoses were in fact mentioned in the medical records. Because of his severe tachypnea I will need to investigate further when his breathing is improved. I will be able to get more details on the mention of heart failure and thyroid disease as well as any additional information. - Time Time Spent with patient: 35 or more minutes Medications reviewed and adjusted accordingly: Yes Anticipated Discharge Disposition: Home with Home Health Anticipated Discharge Timeframe: To be determined - Inpatient Certification Based on my medical assessment, after consideration of the patient's comorbidities, presenting symptoms, or acuity I expect that the services needed warrant INPATIENT care.: Yes I certify that my determination is in accordance with my understanding of Medicare's requirements for reasonable and necessary INPATIENT services [42 CFR 412.3e].: Yes Medical Necessity: Significant Comorbidiites Make Outpatient Treatment Too Risky, Need Close Monitoring Due to Risk of Patient Decompensation, Need For Continuous Telemetry Monitoring, Need for Nebulizer Therapy and Monitoring of Re sponse, Need for IV Antibiotics, Risk of Diagnosis Which Will Require Inpatient Eval/Care/Monitoring Post Hospital Care: D/C or Transfer Summary
[2020-06-03 15:41] LABS: C-REACTIVE PROTEIN 56.4 mg/L (<10.0)
[2020-06-03] MEDS ORDERED: INSULIN REG, HUMAN 100 UNIT/ML 3 ML VIAL (PYX) SUBCUT SCH (16:00)
[2020-06-03] MEDS: IPRATROPIUM BROMIDE 0.02% NEB 0.5 MG/2.5 ML AMPUL NEB SCH ×2 (16:00→20:37)
[2020-06-03] MEDS: LEVALBUTEROL HCL NEB 1.25 MG/3 ML AMPUL NEB SCH ×2 (16:00→20:37)
[2020-06-03 16:30] LABS: ARTERIAL BLOOD BASE EXCESS 1.7 mmol/L; ARTERIAL BLOOD H2CO3 0.92 mmol/L (1.05-1.35); ARTERIAL BLOOD HCO3 23.7 mmol/L (20-24); ARTERIAL BLOOD O2 SATURATION 97.6 % (94-98); ARTERIAL BLOOD PCO2 30.5 mmHg (35-45); ARTERIAL BLOOD PH 7.51 (7.35-7.45); ARTERIAL BLOOD PO2 90.4 mmHg (80-100); ARTERIAL BLOOD TOTAL CO2 24.6 mmol/L (23-27)
[2020-06-03 16:31] LABS: ARTERIAL BLOOD FIO2 40%
[2020-06-03] MEDS ORDERED: METOPROLOL TARTRATE PF/INJ 5 MG/5 ML SDV IV PRN (17:33)
[2020-06-03 17:35] LABS: APPEARANCE,URINE CLEAR; BILIRUBIN,URINE NEGATIVE (NEGATIVE); COLOR,URINE YELLOW; GLUCOSE, URINE NEGATIVE (NEGATIVE); KETONES,URINE NEGATIVE (NEGATIVE); PROTEIN,URINE 100 mg/dL (NEGATIVE); URINE SPECIFIC GRAVITY 1.013
[2020-06-03] MEDS ORDERED: AMLODIPINE BESYLATE 5 MG TABLET PO ONE (18:00)
[2020-06-03] MEDS: RINGERS SOLUTION,LACTATED 1,000 ML IV PRN (18:26)
[2020-06-03] MEDS: ASPIRIN 81 MG TABLET, ENT COATED PO SCH (21:52)
[2020-06-03] MEDS: ATORVASTATIN CALCIUM 40 MG TABLET PO SCH (21:52)
[2020-06-03] MEDS: MELATONIN 5 MG TABLET PO SCH (21:52)
[2020-06-03] MEDS: GUAIFENESIN 600 MG TABLET.SA PO SCH (21:52)
[2020-06-03] MEDS: INSULIN LISPRO 100 UNIT/ML 3 ML VIAL SUBCUT SCH (21:53)
[2020-06-04] MEDS: IPRATROPIUM BROMIDE 0.02% NEB 0.5 MG/2.5 ML AMPUL NEB SCH ×4 (01:45→14:20)
[2020-06-04] MEDS: LEVALBUTEROL HCL NEB 1.25 MG/3 ML AMPUL NEB SCH ×4 (01:45→14:20)
[2020-06-04] MEDS: PANTOPRAZOLE SODIUM 40 MG TABLET.DR PO SCH (05:28)
[2020-06-04] MEDS: RINGERS SOLUTION,LACTATED 1,000 ML IV PRN (05:28)
[2020-06-04 05:33] LABS: ABSOLUTE LYMPHOCYTES (AUTO) 1.1 10^3/uL (0.5-4.7); ABSOLUTE NEUT (AUTO) 15.6 10^3/uL (1.7-8.2); BASOPHILS % (AUTO) 0.2 % (0-2); EOSINOPHILS % (AUTO) 0.1 % (0-6); HEMATOCRIT 40.8 % (37.9-51.0); HEMOGLOBIN 14.1 g/dL (13.5-17.0); LYMPHOCYTES % (AUTO) 6.4 % (13-45); MEAN CORPUSCULAR HEMOGLOBIN 28.4 pg (27.0-33.4); MEAN CORPUSCULAR HGB CONC 34.5 g/dL (32.0-36.0); MEAN CORPUSCULAR VOLUME 82 fl (80-97); MONOCYTES % (AUTO) 5.7 % (3-13); PLATELET COUNT 209 10^3/uL (150-450); RED BLOOD COUNT 4.96 10^6/uL (4.35-5.55); RED CELL DISTRIBUTION WIDTH 15.6 % (11.5-14.0); SEGMENTED NEUTROPHILS % (AUTO) 87.6 % (42-78); TOTAL CELLS COUNTED % (AUTO) 100 %; WHITE BLOOD COUNT 17.7 10^3/uL (4.0-10.5)
[2020-06-04 05:52] LABS: ANION GAP 14 (5-19); BLOOD UREA NITROGEN 17 mg/dL (7-20); CARBON DIOXIDE 22 mmol/L (22-30); CHLORIDE 102 mmol/L (98-107); CHOLESTEROL 159.19 mg/dL (0-200); GLUCOSE 154 mg/dL (75-110); POTASSIUM 4.2 mmol/L (3.6-5.0); TRIGLYCERIDES 45 mg/dL (<150)
[2020-06-04 06:02] LABS: DIRECT LDL 86 mg/dL (<100)
[2020-06-04 06:08] LABS: FREE T3 2.77 pg/mL (2.77-5.27); FREE T4 (FREE THYROXINE) 1.14 ng/dL (0.78-2.19)
[2020-06-04 06:22] LABS: THYROID STIMULATING HORMONE 0.25 uIU/mL (0.47-4.68)
--- NOTE | 2020-06-04 08:37 | RADIOLOGY REPORT (SQ) ---
EXAM DESCRIPTION: CHEST SINGLE VIEW IMAGES COMPLETED DATE/TIME: 06/04/2020 8:29 am REASON FOR STUDY: Pneumonia COMPARISON: 06/03/2020 EXAM PARAMETERS: NUMBER OF VIEWS: One view. TECHNIQUE: Single frontal radiographic view of the chest acquired. RADIATION DOSE: NA LIMITATIONS: None. FINDINGS: LUNGS AND PLEURA: Increasing right-sided pleural effusion. Basilar atelectasis. No conso lidation. MEDIASTINUM AND HILAR STRUCTURES: No masses. Contour normal. HEART AND VASCULAR STRUCTURES: Heart normal in size. Normal vasculature. BONES: No acute findings. HARDWARE: None in the chest. OTHER: No other significant finding. IMPRESSION: Increasing right-sided pleural effusion. Persistent basilar atelectasis. TECHNICAL DOCUMENTATION: JOB ID: [id number] 2010 [employer]- All Rights Reserved Reading location - IP/workstation name: [email or web address]
[2020-06-04] MEDS ORDERED: AMLODIPINE BESYLATE 5 MG TABLET PO SCH (10:00)
[2020-06-04] MEDS ORDERED: METOPROLOL SUCCINATE 25 MG TAB.SR.24H PO SCH (10:00)
[2020-06-04] MEDS ORDERED: AMLODIPINE BESYLATE 10 MG TABLET PO SCH (10:00)
[2020-06-04] MEDS ORDERED: METOPROLOL SUCCINATE 50 MG TAB.SR.24H PO SCH (10:00)
[2020-06-04] MEDS: AZITHROMYCIN 500 MG in DEXTROSE 5%-WATER 250 ML IV SCH (10:35)
[2020-06-04] MEDS: ASCORBIC ACID 500 MG TABLET PO SCH ×2 (10:36→17:47)
[2020-06-04] MEDS: GUAIFENESIN 600 MG TABLET.SA PO SCH ×2 (10:36→21:58)
[2020-06-04] MEDS: ENOXAPARIN SODIUM INJ 40 MG/0.4 ML DISP.SYRIN SUBCUT SCH (10:36)
[2020-06-04] MEDS: CHOLECALCIFEROL (D3) 1,000 UNIT (25 MCG) TABLET PO SCH (10:36)
[2020-06-04] MEDS: INSULIN LISPRO 100 UNIT/ML 3 ML VIAL SUBCUT SCH ×4 (10:37→21:58)
[2020-06-04] MEDS: ZINC SULFATE 220 MG CAPSULE PO SCH (10:37)
--- NOTE | 2020-06-04 10:57 | PDOC PROGRESS REPORT ---
Subjective Progress Note for:: 06/04/20 Subjective:: Just finished a nebulizer treatment. We did discuss extensively his history of anxiety. He does report that with the CPAP he slept better than any night in the past several months. Reason For Visit: PNEUMONIA-BILATERAL/MULTIFOCAL, PUI COVID-19 Physical Exam Vital Signs: Temp Pulse Resp BP Pulse Ox 97.8 F 86 16 143/91 H 95 06/04/20 08:03 06/04/20 08:30 06/04/20 08:30 06/04/20 04:56 06/04/20 08:30 Intake & Output 06/03/20 06/04/20 06/05/20 06:59 06:59 06:59 Intake Total 2050 Output Total 800 Balance 1250 Weight 109 kg General appearance: PRESENT: cooperative, mild distress, morbidly obese, well- developed Eye exam: PRESENT: conjunctiva pink. ABSENT: scleral icterus Ear exam: PRESENT: normal external ear exam. ABSENT: bleeding, drainage Mouth exam: PRESENT: moist, tongue midline Respiratory exam: PRESENT: decreased breath sounds - At bases, prolonged expiratory phas, symmetrical, tachypnea. ABSENT: rales, rhonchi, wheezes Cardiovascular exam: PRESENT: +S1, +S2, tachycardia. ABSENT: bradycardia, diastolic murmur, irregular rhythm, RRR, systolic murmur GI/Abdominal exam: PRESENT: normal bowel sounds, soft, other - Protuberant abdo men. ABSENT: guarding, tenderness Rectal exam: PRESENT: deferred Gentrourinary exam: ABSENT: indwelling catheter Extremities exam: PRESENT: full ROM. ABSENT: calf tenderness, pedal edema Musculoskeletal exam: PRESENT: ambulatory, normal inspection. ABSENT: deformity, dislocation Neurological exam: PRESENT: alert, awake, oriented to person, oriented to place, oriented to time, oriented to situation, CN II-XII grossly intact. ABSENT: altered Psychiatric exam: PRESENT: anxious. ABSENT: agitated Focused psych exam: ABSENT: delusional, paranoid, restlessness Skin exam: PRESENT: dry, normal color, warm. ABSENT: cyanosis, rash Results Laboratory Results: 06/04/20 04:30 06/04/20 04:30 06/03/20 06/03/20 06/03/20 15:04 16:25 17:11 WBC RBC Hgb Hct MCV MCH MCHC RDW Plt Count Seg Neutrophils % Carbonic Acid 0.92 L HCO3/H2CO3 Ratio 25:1 ABG pH 7.51 H ABG pCO2 30.5 L ABG pO2 90.4 ABG HCO3 23.7 ABG O2 Saturation 97.6 ABG Base Excess 1.7 FiO2 40% Sodium Potassium Chloride Carbon Dioxide Anion Gap BUN Creatinine Est GFR ( Amer) Glucose Calcium Ferritin 102.00 C-Reactive Protein 56.4 H Triglycerides Cholesterol LDL Cholesterol Direct VLDL Cholesterol HDL Cholesterol TSH Free T4 Free T3 pg/mL Urine Color YELLOW Urine Appearance CLEAR Urine pH 6.0 Ur Specific [place] 1.013 Urine Protein 100 H Urine Glucose (UA) NEGATIVE Urine Ketones NEGATIVE Urine Blood NEGATIVE Urine RBC (Auto) 1 06/04/20 06/04/20 06/04/20 04:30 04:30 04:30 WBC 17.7 H RBC 4.96 Hgb 14.1 Hct 40.8 MCV 82 MCH 28.4 MCHC 34.5 RDW 15.6 H Plt Count 209 Seg Neutrophils % 87.6 H Carbonic Acid HCO3/H2CO3 Ratio ABG pH ABG pCO2 ABG pO2 ABG HCO3 ABG O2 Saturation ABG Base Excess FiO2 Sodium 138.4 Potassium 4.2 Chloride 102 Carbon Dioxide 22 Anion Gap 14 BUN 17 Creatinine 0.76 Est GFR ( Amer) > 60 Glucose 154 H Calcium 9.0 Ferritin C-Reactive Protein Triglycerides 45 Cholesterol 159.19 LDL Cholesterol Direct 86 VLDL Cholesterol 9.0 L HDL Cholesterol 48 TSH 0.25 L Free T4 1.14 Free T3 pg/mL 2.77 Urine Color Urine Appearance Urine pH Ur Specific [place] Urine Protein Urine Glucose (UA) Urine Ketones Urine Blood Urine RBC (Auto) 06/03/20 06/03/20 06/03/20 08:38 15:04 18:57 Troponin I 0.026 0.023 0.022 NT-Pro-B Natriuret Pep 49 Impressions: Abdomen/Pelvis CT 06/03/20 08:32 IMPRESSION: Bibasilar consolidation worrisome for pneumonia. Chest X-Ray 06/04/20 07:00 IMPRESSION: Increasing right-sided pleural effusion. Persistent basilar atelectasis. Assessment and Plan - Diagnosis (1) Acute respiratory failure with hypoxia Is this a current diagnosis for this admission?: Yes (2) Bilateral pneumonia Qualifiers: Pneumonia type: due to unspecified organism Lung location: lower lobe of lung Qualified Code(s): J18.9 - Pneumonia, unspecified organism Is this a current diagnosis for this admission?: Yes (3) Acute exacerbation of chronic obstructive pulmonary disease (COPD) Is this a current diagnosis for this admission?: Yes (4) Hypertensive emergency Is this a current diagnosis for this admission?: Yes (5) Tachycardia Is this a current diagnosis for this admission?: Yes (6) Abnormal electrocardiogram Is this a current diagnosis for this admission?: Yes (7) Hyperglycemia due to type 2 diabetes mellitus Qualifiers: Diabetes mellitus retirement insulin use: without terminal gauger supervisor use Qualified Code(s): E11.65 - Type 2 diabetes mellitus with hyperglycemia Is this a current diagnosis for this admission?: Yes (8) Obstructive sleep apnea of adult Is this a current diagnosis for this admission?: Yes (9) Morbid obesity with BMI of 40.0-44.9, adult Is this a current diagnosis for this admission?: Yes (10) Pleural effusion due to congestive heart failure Is this a current diagnosis for this admission?: Yes - Plan Summary Summary: 06/03/2020 Acute hypoxic respiratory failure with pneumonia The patient reports being tested for Covid twice. The last test was approximately 1 month ago. He does have bilateral pneumonia. I will check ferritin, LDH, CRP and D-dimer. Based on results I will counseled the patient with regard to retesting during this admission. He will be treated as a patient under investigation regardless. He will be placed on ceftriaxone and azithromycin. I have taken the liberty of starting vitamin C, vitamin D, zinc and melatonin as well. Oxygen supplement to keep oxygen saturation between 90 and 94% considering his history of COPD. Exacerbation of COPD Scheduled and as needed nebulizers including Xopenex, ipratropium and budesonide. Intravenous steroids as well. Hypertensive emergency The patient's records indicate a cardiac catheterization. There is also mention of congestive heart failure. I am going to institute metoprolol and amlodipine as well as aspirin daily. He does not appear to be fluid overloaded and I will hold on diuretics at this time. During this hospitalization we will certainly o btain an echocardiogram and adjust medications accordingly. I have ordered a brain natruretic peptide as well. Tachycardia This should improve as his respiratory status improves. Monitor on telemetry at this time Abnormal EKG The patient was tachycardic and showed borderline ST changes that could be related to strain under the circumstances. We will trend troponins and repeat EKG in the morning. Hyperglycemia due to diabetes mellitus type 2 The patient will be on a controlled carbohydrate level for diet. I will i nstitute Accu-Cheks at meals and bedtime with an aggressive Humalog sliding scale. Will review sliding scale requirements and consider adding oral medications or long-acting insulin Obstructive sleep apnea The patient does not wear CPAP at home. I explained that I am going to put him on CPAP at night. This will make him feel better. The patient actually admits that he does not sleep well at all and that he tosses and turns and does not wake up feeling refreshed. He does experience daytime somnolence. Morbid obesity BMI is 40. Reviewed how sleep apnea could contribute to obesity and obesity's additional risk factors for hypertension and heart disease as well as diabetes and respiratory failure if the obesity causes alveolar hypoventilation. The patient needs to consider aggressive diet management and initiate exercise program Multiple other diagnoses were in fact mentioned in the medical records. Because of his severe tachypnea I will need to investigate further when his breathing is improved. I will be able to get more details on the mention of heart failure and thyroid disease as well as any additional information. 06/04/2020 Breathing is much better. I believe this is mostly due to aggressive antibiotics for pneumonia (most likely bacterial community-acquired). I believe there is low probability for Covid. I will reduce the scheduled nebulizer treatments to every 6 hours and eventually transition him to inhaler therapy for outpatient use. Hypertension-blood pressure is better. Continue to adjust medications to and only treat hypertension but heart failure and possible underlying coronary disease. EKG is unchanged. The patient in fact reported that he has been told he likely had a myocardial infarction in the past. He is on aspirin, statin and beta- tino therapy as well. I have ordered an echocardiogram to further discern the type of heart failure. The patient has obstructive sleep apnea and likely has pulmonary hypertension as well. We will continue cardiac/diabetic diet with Accu-Cheks and sliding scale for hyperglycemia. The patient did report excellent sleep last night with CPAP. He now appreciates the benefit of this therapeutic modality. X-ray did show a growing right pleural effusion. Looking through his old records he has had a left pleural effusion in the past. I am going to initiate aggressive diuretic therapy at this time. We will need to monitor his renal function and electrolytes as well as intake and output. Nursing supervisor [employer] informed me that the patient would need to stay on 3 N. if he did not have a negative Covid test. I am going to encourage him to have the test so that we can get him off of 3 N. as soon as possible. I do not believe his respiratory failure and pneumonia are Covid related. - Time Time Spent with patient: 15-24 minutes Medications reviewed and adjusted accordingly: Yes Anticipated Discharge Disposition: Home, Self Care Anticipated Discharge Timeframe: Possibly 4 to 5 days
[2020-06-04] MEDS: DEXAMETHASONE SOD PHOS INJ 10 MG/1 ML VIAL IV SCH (10:58)
[2020-06-04] MEDS: NITROGLYCERIN 10 MG (0.4 MG/HR) PATCH.TD24 TD SCH (10:58)
[2020-06-04] MEDS: CEFTRIAXONE 1 GM/D5W RTU 1 GM/50 ML RTUPB IV SCH (12:30)
--- NOTE | 2020-06-04 13:32 | CDI QUERY ---
CDI Query CDI Review: We are seeking further clarification of documentation to reflect the severity of illness of your patient. Per H&P: Acute hypoxic respiratory failure with pneumonia The patient reports being tested for Covid twice. The last test was approximately 1 month ago. He does have bilateral pneumonia. I will check ferritin, LDH, CRP and D-dimer. Based on results I will counseled the patient with regard to retesting during this admission. He will be treated as a patient under investigation regardless. He will be placed on ceftriaxone and azithromycin. I have taken the liberty of starting vitamin C, vitamin D, zinc and melatonin as well. Oxygen supplement to keep oxygen saturation between 90 and 94% considering his history of COPD. Based on your medical judgment, can you further clarify in the progress notes the most likely or suspected underlying cause of the pneumonia: Viral Gram negative Staph Pseudomonas Pneumococcus Aspiration Other cause (please specify) None of the above / Not applicable Thank you for your consideration. JASPER Tsang RN Clinical Insole Tape Stitcher [employer] Physician Advisor [email or web address]
[2020-06-04] MEDS ORDERED: FUROSEMIDE INJ/PF 40 MG/4 ML SDV IV ONE (15:28)
[2020-06-04] MEDS ORDERED: INSULIN LISPRO 100 UNIT/ML 3 ML VIAL ONE (16:57)
--- NOTE | 2020-06-04 19:43 | XCELERA REPORT ---
[address] [address] Transthoracic Echocardiogram Report Name: JOSÉ ANTONIO CRISOSTOMO Age: 45 yrs Gender: Male : 1975 Patient Status: Inpatient Patient Location: [address] [place], [place] [address]A Study Date: 06/04/2020 06:31 PM History: CHF Height: 65 in Weight: 240 lb BSA: 2.1 m2 Procedure: A complete two-dimensional transthoracic echocardiogram was performed (2D, M-mode, spectral and color flow Doppler). The study was technically difficult with many images being suboptimal in quality. Reason For Study: Acute heart failure Previous Evaluation: A previous study was performed on 12/31/2018 LVEF was normal. History: CHF. Ordering Physician: WILLIAM VILLAGRAN Performed By: Joselin Macias Interpretation Summary Left ventricular systolic function is normal. The Ejection Fraction estimate is 60-65% The right ventricle is normal in size and function. There is a trace amount of mitral regurgitation There is no aortic valve stenosis Tricuspid valve was not adequately interrogated There is no pericardial effusion. MMode/2D Measurements & Calculations RVDd: 3.5 cm LVIDd: 4.9 cm FS: 38.4 % Ao root diam: 2.5 cm IVSd: 1.0 cm LVIDs: 3.0 cm EDV(Teich): 111.6 ml Ao root area: 4.8 cm2 LVPWd: 1.3 cm ESV(Teich): 35.2 ml LA dimension: 3.9 cm EF(Teich): 68.5 % Doppler Measurements & Calculations MV E max juan: MV P1/2t max juan: Ao V2 max: LV V1 max P.8 cm/sec 100.8 cm/sec 159.3 cm/sec 7.4 mmHg MV A max juan: MV P1/2t: 47.4 msec Ao max PG: LV V1 max: 84.9 cm/sec MVA(P1/2t): 4.6 cm2 10.1 mmHg 135.7 cm/sec MV E/A: 1.1 MV dec slope: 622.4 cm/sec2 MV dec time: 0.17 sec PA V2 max: MV P1/2t-pr_phl: 109.6 cm/sec 47.4 msec PA max P.8 mmHg Left Ventricle The left ventricle is normal in size. There is mild concentric left ventricular hypertrophy. Left ventricular systolic function is normal. The Ejection Fraction estimate is 60-65%. Doppler measurements suggest pseudonormalized left ventricular relaxation, which is associated with grade II/IV or mild to moderate diastolic dysfunction. Regional wall motion abnormalities cannot be excluded due to limited visualization. Right Ventricle The right ventricle is normal in size and function. Atria The right atrium is normal. The left atrium is mildly dilated. Mitral Valve The mitral valve is grossly normal. There is no evidence of mitral valve prolapse. There is no mitral valve stenosis. There is a trace amount of mitral regurgitation. Aortic Valve The aortic valve is not well visualized secondary to technical limitations. There is no aortic valve stenosis. No aortic regurgitation is present. Tricuspid Valve The tricuspid valve is normal in structure and function. Tricuspid valve was not adequately interrogated. Pulmonic Valve The pulmonic valve is not well visualized. There is no pulmonic valvular stenosis. There is a trace amount of pulmonic regurgitation. Great Vessels The aortic root is normal size. The inferior vena cava appeared normal and decreased < 50% with respiration (RAP 10-15 mmHg). Effusions There is no pericardial effusion. : WILLIAM VILLAGRAN Anil
[2020-06-04] MEDS: IPRATROPIUM/ALBUTEROL 0.5-2.5 MG/3 ML AMPUL NEB SCH (20:11)
[2020-06-04] MEDS: ASPIRIN 81 MG TABLET, ENT COATED PO SCH (21:58)
[2020-06-04] MEDS: ATORVASTATIN CALCIUM 40 MG TABLET PO SCH (21:58)
[2020-06-04] MEDS: MELATONIN 5 MG TABLET PO SCH (21:58)
[2020-06-05] MEDS: IPRATROPIUM/ALBUTEROL 0.5-2.5 MG/3 ML AMPUL NEB SCH ×4 (01:08→20:01)
[2020-06-05] MEDS: PANTOPRAZOLE SODIUM 40 MG TABLET.DR PO SCH (06:35)
[2020-06-05 06:46] LABS: ABSOLUTE LYMPHOCYTES (AUTO) 1.7 10^3/uL (0.5-4.7); ABSOLUTE MONOCYTES (AUTO) 1.5 10^3/uL (0.1-1.4); ABSOLUTE NEUT (AUTO) 15.9 10^3/uL (1.7-8.2); BASOPHILS % (AUTO) 0.2 % (0-2); HEMATOCRIT 38.1 % (37.9-51.0); LYMPHOCYTES % (AUTO) 8.7 % (13-45); MEAN CORPUSCULAR HEMOGLOBIN 28.5 pg (27.0-33.4); MEAN CORPUSCULAR HGB CONC 34.2 g/dL (32.0-36.0); MEAN CORPUSCULAR VOLUME 83 fl (80-97); MONOCYTES % (AUTO) 7.8 % (3-13); PLATELET COUNT 195 10^3/uL (150-450); RED BLOOD COUNT 4.57 10^6/uL (4.35-5.55); RED CELL DISTRIBUTION WIDTH 15.9 % (11.5-14.0); SEGMENTED NEUTROPHILS % (AUTO) 83.3 % (42-78); TOTAL CELLS COUNTED % (AUTO) 100 %; WHITE BLOOD COUNT 19.1 10^3/uL (4.0-10.5)
[2020-06-05 07:01] LABS: ANION GAP 12 (5-19); BLOOD UREA NITROGEN 19 mg/dL (7-20); CALCIUM 8.8 mg/dL (8.4-10.2); CARBON DIOXIDE 23 mmol/L (22-30); CHLORIDE 105 mmol/L (98-107); GLUCOSE 151 mg/dL (75-110); POTASSIUM 4.2 mmol/L (3.6-5.0)
[2020-06-05] MEDS: INSULIN LISPRO 100 UNIT/ML 3 ML VIAL SUBCUT SCH ×4 (08:04→21:29)
[2020-06-05] MEDS: LOSARTAN POTASSIUM 25 MG TABLET PO SCH (09:43)
[2020-06-05] MEDS: FUROSEMIDE INJ/PF 40 MG/4 ML SDV IV SCH (09:44)
[2020-06-05] MEDS: CHOLECALCIFEROL (D3) 1,000 UNIT (25 MCG) TABLET PO SCH (09:44)
[2020-06-05] MEDS: DEXAMETHASONE SOD PHOS INJ 10 MG/1 ML VIAL IV SCH (09:44)
[2020-06-05] MEDS: NITROGLYCERIN 10 MG (0.4 MG/HR) PATCH.TD24 TD SCH (09:44)
[2020-06-05] MEDS: METOPROLOL SUCCINATE 50 MG TAB.SR.24H PO SCH (09:44)
[2020-06-05] MEDS: GUAIFENESIN 600 MG TABLET.SA PO SCH ×2 (09:44→21:28)
[2020-06-05] MEDS: CEFTRIAXONE 1 GM/D5W RTU 1 GM/50 ML RTUPB IV SCH (09:44)
[2020-06-05] MEDS: ZINC SULFATE 220 MG CAPSULE PO SCH (09:45)
[2020-06-05] MEDS: ASCORBIC ACID 500 MG TABLET PO SCH ×2 (09:45→18:03)
[2020-06-05] MEDS: ENOXAPARIN SODIUM INJ 40 MG/0.4 ML DISP.SYRIN SUBCUT SCH (10:11)
[2020-06-05] MEDS: AZITHROMYCIN 500 MG in DEXTROSE 5%-WATER 250 ML IV SCH (10:46)
--- NOTE | 2020-06-05 17:12 | PDOC PROGRESS REPORT ---
Subjective Reason For Visit: PNEUMONIA-BILATERAL/MULTIFOCAL, PUI COVID-19 Physical Exam Vital Signs: Temp Pulse Resp BP Pulse Ox 98.2 F 77 21 H 142/72 H 98 06/05/20 15:59 06/05/20 15:59 06/05/20 15:59 06/05/20 15:59 06/05/20 15:59 Intake & Output 06/04/20 06/05/20 06/06/20 06:59 06:59 05:59 Intake Total 2050 4410 776 Output Total 800 3150 860 Balance 1250 1260 -84 Weight 109 kg Results Laboratory Results: 06/05/20 06:25 06/05/20 06:25 06/05/20 06/05/20 06:25 06:25 WBC 19.1 H RBC 4.57 Hgb 13.0 L Hct 38.1 MCV 83 MCH 28.5 MCHC 34.2 RDW 15.9 H Plt Count 195 Seg Neutrophils % 83.3 H Sodium 140.1 Potassium 4.2 Chloride 105 Carbon Dioxide 23 Anion Gap 12 BUN 19 Creatinine 0.76 Est GFR ( Amer) > 60 Glucose 151 H Calcium 8.8 Magnesium 1.6 06/03/20 06/03/20 06/03/20 08:38 15:04 18:57 Troponin I 0.026 0.023 0.022 NT-Pro-B Natriuret Pep 49 Impressions: Abdomen/Pelvis CT 06/03/20 08:32 IMPRESSION: Bibasilar consolidation worrisome for pneumonia. Chest X-Ray 06/04/20 07:00 IMPRESSION: Increasing right-sided pleural effusion. Persistent basilar atelectasis. Assessment and Plan - Diagnosis (1) Acute respiratory failure with hypoxia Is this a current diagnosis for this admission?: Yes (2) Bilateral pneumonia Qualifiers: Pneumonia type: due to unspecified organism Lung location: lower lobe of lung Qualified Code(s): J18.9 - Pneumonia, unspecified organism Is this a current diagnosis for this admission?: Yes (3) Acute exacerbation of chronic obstructive pulmonary disease (COPD) Is this a current diagnosis for this admission?: Yes (4) Hypertensive emergency Is this a current diagnosis for this admission?: Yes (5) Tachycardia Is this a current diagnosis for this admission?: Yes (6) Abnormal electrocardiogram Is this a current diagnosis for this admission?: Yes (7) Hyperglycemia due to type 2 diabetes mellitus Qualifiers: Diabetes mellitus assisted insulin use: without bed bug exterminator use Qualified Code(s): E11.65 - Type 2 diabetes mellitus with hyperglycemia Is this a current diagnosis for this admission?: Yes (8) Obstructive sleep apnea of adult Is this a current diagnosis for this admission?: Yes (9) Morbid obesity with BMI of 40.0-44.9, adult Is this a current diagnosis for this admission?: Yes (10) Pleural effusion due to congestive heart failure Is this a current diagnosis for this admission?: Yes (11) Chronic diastolic heart failure Is this a current diagnosis for this admission?: Yes - Plan Summary Summary: 06/03/2020 Acute hypoxic respiratory failure with pneumonia The patient reports being tested for Covid twice. The last test was approximately 1 month ago. He does have bilateral pneumonia. I will check ferritin, LDH, CRP and D-dimer. Based on results I will counseled the patient with regard to retesting during this admission. He will be treated as a patient under investigation regardless. He will be placed on ceftriaxone and azithr omycin. I have taken the liberty of starting vitamin C, vitamin D, zinc and melatonin as well. Oxygen supplement to keep oxygen saturation between 90 and 94% considering his history of COPD. Exacerbation of COPD Scheduled and as needed nebulizers including Xopenex, ipratropium and budesonide. Intravenous steroids as well. Hypertensive emergency The patient's records indicate a cardiac catheterization. There is also mention of congestive heart failure. I am going to institute metoprolol and amlodipine as well as aspirin daily. He does not appear to be fluid overloaded and I will hold on diuretics at this time. During this hospitalization we will certainly obtain an echocardiogram and adjust medications accordingly. I have ordered a brain natruretic peptide as well. Tachycardia This should improve as his respiratory status improves. Monitor on telemetry at this time Abnormal EKG The patient was tachycardic and showed borderline ST changes that could be related to strain under the circumstances. We will trend troponins and repeat EKG in the morning. Hyperglycemia due to diabetes mellitus type 2 The patient will be on a controlled carbohydrate level for diet. I will institute Accu-Cheks at meals and bedtime with an aggressive Humalog sliding s nyla. Will review sliding scale requirements and consider adding oral medications or long-acting insulin Obstructive sleep apnea The patient does not wear CPAP at home. I explained that I am going to put him on CPAP at night. This will make him feel better. The patient actually admits that he does not sleep well at all and that he tosses and turns and does not wake up feeling refreshed. He does experience daytime somnolence. Morbid obesity BMI is 40. Reviewed how sleep apnea could contribute to obesity and obesity's additional risk factors for hypertension and heart disease as well as diabetes and respiratory failure if the obesity causes alveolar hypoventilation. The patient needs to consider aggressive diet management and initiate exercise program Multiple other diagnoses were in fact mentioned in the medical records. Because of his severe tachypnea I will need to investigate further when his breathing is improved. I will be able to get more details on the mention of heart failure and thyroid disease as well as any additional information. 06/04/2020 Breathing is much better. I believe this is mostly due to aggressive antibiotics for pneumonia (most likely bacterial community-acquired). I believe there is low probability for Covid. I will reduce the scheduled nebulizer treatments to every 6 hours and eventually transition him to inhaler therapy for outpatient use. Hypertension-blood pressure is better. Continue to adjust medications to and only treat hypertension but heart failure and possible underlying coronary disease. EKG is unchanged. The patient in fact reported that he has been told he likely had a myocardial infarction in the past. He is on aspirin, statin and beta-blo cker therapy as well. I have ordered an echocardiogram to further discern the type of heart failure. The patient has obstructive sleep apnea and likely has pulmonary hypertension as well. We will continue cardiac/diabetic diet with Accu-Cheks and sliding scale for hyperglycemia. The patient did report excellent sleep last night with CPAP. He now appreciates the benefit of this therapeutic modality. X-ray did show a growing right pleural effusion. Looking through his old records he has had a left pleural effusion in the past. I am going to initiate aggressive diuretic therapy at this time. We will need to monitor his renal function and electrolytes as well as intake and output. Nursing supervisor graphite informed me that the patient would need to stay on 3 N. if he did not have a negative Covid test. I am going to encourage him to have the test so that we can get him off of 3 N. as soon as possible. I do not believe his respiratory failure and pneumonia are Covid related. 06/05/2020 Patient continues to feel better. Pneumonia-continue antibiotics COPD-discontinue Decadron and start prednisone 20 mg daily. Add Trelegy inhaler. Chronic diastolic heart failure-echocardiogram reveals normal ejection fraction with grade 2/4 diastolic failure. Continue diuretic regimen. Output today is over 3 L. Diabetes-the patient's hemoglobin A1c was 6.0 and he was doing a very good job controlling his sugars. Because of his steroids his white count and glucose levels are elevated. Switching to prednisone should help both. We will continue to monitor. Hypertension-continue current regimen as blood pressures are very well controlled Covid testing has been obtained as the patient would not be able to leave 3 N. without a negative test. My expectation is that the test will be negative. - Time Time Spent with patient: 15-24 minutes Medications reviewed and adjusted accordingly: Yes Anticipated Discharge Disposition: Home, Self Care Anticipated Discharge Timeframe: 3 to 4 days
[2020-06-05] MEDS: ASPIRIN 81 MG TABLET, ENT COATED PO SCH (21:28)
[2020-06-05] MEDS: MELATONIN 5 MG TABLET PO SCH (21:28)
[2020-06-05] MEDS: ATORVASTATIN CALCIUM 40 MG TABLET PO SCH (21:28)
[2020-06-06] MEDS: IPRATROPIUM/ALBUTEROL 0.5-2.5 MG/3 ML AMPUL NEB SCH ×3 (02:18→14:11)
[2020-06-06] MEDS: PANTOPRAZOLE SODIUM 40 MG TABLET.DR PO SCH (06:00)
[2020-06-06 06:07] LABS: ABSOLUTE LYMPHOCYTES (AUTO) 2.5 10^3/uL (0.5-4.7); ABSOLUTE NEUT (AUTO) 10.6 10^3/uL (1.7-8.2); BASOPHILS % (AUTO) 0.2 % (0-2); HEMATOCRIT 38.6 % (37.9-51.0); HEMOGLOBIN 13.3 g/dL (13.5-17.0); LYMPHOCYTES % (AUTO) 17.6 % (13-45); MEAN CORPUSCULAR HEMOGLOBIN 28.5 pg (27.0-33.4); MEAN CORPUSCULAR HGB CONC 34.4 g/dL (32.0-36.0); MEAN CORPUSCULAR VOLUME 83 fl (80-97); MONOCYTES % (AUTO) 7.4 % (3-13); PLATELET COUNT 231 10^3/uL (150-450); RED BLOOD COUNT 4.68 10^6/uL (4.35-5.55); RED CELL DISTRIBUTION WIDTH 15.3 % (11.5-14.0); SEGMENTED NEUTROPHILS % (AUTO) 74.8 % (42-78); TOTAL CELLS COUNTED % (AUTO) 100 %; WHITE BLOOD COUNT 14.2 10^3/uL (4.0-10.5)
[2020-06-06 07:05] LABS: ANION GAP 13 (5-19); BLOOD UREA NITROGEN 16 mg/dL (7-20); CALCIUM 8.7 mg/dL (8.4-10.2); CARBON DIOXIDE 24 mmol/L (22-30); CHLORIDE 101 mmol/L (98-107); GLUCOSE 113 mg/dL (75-110); POTASSIUM 4.1 mmol/L (3.6-5.0)
[2020-06-06] MEDS: INSULIN LISPRO 100 UNIT/ML 3 ML VIAL SUBCUT SCH ×4 (07:47→22:48)
[2020-06-06] MEDS: METOPROLOL SUCCINATE 50 MG TAB.SR.24H PO SCH (09:04)
[2020-06-06] MEDS: LOSARTAN POTASSIUM 25 MG TABLET PO SCH (09:04)
[2020-06-06] MEDS: CHOLECALCIFEROL (D3) 1,000 UNIT (25 MCG) TABLET PO SCH (09:04)
[2020-06-06] MEDS: CEFTRIAXONE 1 GM/D5W RTU 1 GM/50 ML RTUPB IV SCH (09:04)
[2020-06-06] MEDS: ASCORBIC ACID 500 MG TABLET PO SCH ×2 (09:04→17:22)
[2020-06-06] MEDS: FUROSEMIDE INJ/PF 40 MG/4 ML SDV IV SCH (09:04)
[2020-06-06] MEDS: PREDNISONE 20 MG TABLET PO SCH (09:04)
[2020-06-06] MEDS: GUAIFENESIN 600 MG TABLET.SA PO SCH ×2 (09:04→22:48)
[2020-06-06] MEDS: ZINC SULFATE 220 MG CAPSULE PO SCH (09:04)
[2020-06-06] MEDS: ENOXAPARIN SODIUM INJ 40 MG/0.4 ML DISP.SYRIN SUBCUT SCH (09:05)
[2020-06-06] MEDS: NITROGLYCERIN 10 MG (0.4 MG/HR) PATCH.TD24 TD SCH (09:06)
[2020-06-06] MEDS: AZITHROMYCIN 500 MG in DEXTROSE 5%-WATER 250 ML IV SCH (09:55)
[2020-06-06] MEDS: FLUTICASONE/UMECLIDIN/VILANTER 100-62.5-25 MCG/DOSE IH SCH (09:55)
[2020-06-06] MEDS ORDERED: IPRATROPIUM/ALBUTEROL 0.5-2.5 MG/3 ML AMPUL NEB PRN (14:59)
--- NOTE | 2020-06-06 15:20 | PDOC PROGRESS REPORT ---
Subjective Progress Note for:: 06/06/20 Subjective:: The patient is currently getting a nebulizer treatment but has been feeling better and is now on room air. I have also transitioned him to oral Lasix. Reason For Visit: PNEUMONIA-BILATERAL/MULTIFOCAL, PUI COVID-19 Physical Exam Vital Signs: Temp Pulse Resp BP Pulse Ox 98.7 F 69 17 133/71 H 96 06/06/20 11:00 06/06/20 14:00 06/06/20 11:00 06/06/20 11:00 06/06/20 11:00 Intake & Output 06/05/20 06/06/20 06/07/20 07:59 06:59 06:59 Intake Total 540 Output Total 900 Balance -360 Weight General appearance: PRESENT: no acute distress, cooperative, morbidly obese, well-developed Head exam: PRESENT: atraumatic, normocephalic Ear exam: PRESENT: normal external ear exam. ABSENT: bleeding, drainage Respiratory exam: PRESENT: symmetrical. ABSENT: accessory muscle use, rales, rhonchi, tachypnea, wheezes Cardiovascular exam: PRESENT: RRR, +S1, +S2. ABSENT: bradycardia, diastolic murmur, irregular rhythm, systolic murmur, tachycardia GI/Abdominal exam: PRESENT: normal bowel sounds, soft, other - Protuberant. ABSENT: guarding, tenderness Rectal exam: PRESENT: deferred Gentrourinary exam: ABSENT: indwelling catheter Extremities exam: ABSENT: pedal edema Musculoskeletal exam: PRESENT: ambulatory, normal inspection. ABSENT: deformity, dislocation Neurological exam: PRESENT: alert, awake, oriented to person, oriented to place, oriented to time, oriented to situation, CN II-XII grossly intact. ABSENT: altered Psychiatric exam: PRESENT: appropriate affect. ABSENT: agitated, anxious Focused psych exam: ABSENT: delusional, paranoid, restlessness Results Laboratory Results: 06/06/20 05:45 06/06/20 05:45 06/06/20 06/06/20 05:45 05:45 WBC 14.2 H RBC 4.68 Hgb 13.3 L Hct 38.6 MCV 83 MCH 28.5 MCHC 34.4 RDW 15.3 H Plt Count 231 Seg Neutrophils % 74.8 Sodium 137.9 Potassium 4.1 Chloride 101 Carbon Dioxide 24 Anion Gap 13 BUN 16 Creatinine 0.77 Est GFR ( Amer) > 60 Glucose 113 H Calcium 8.7 Magnesium 1.5 L 06/03/20 06/03/20 06/03/20 08:38 15:04 18:57 Troponin I 0.026 0.023 0.022 NT-Pro-B Natriuret Pep 49 Impressions: Abdomen/Pelvis CT 06/03/20 08:32 IMPRESSION: Bibasilar consolidation worrisome for pneumonia. Chest X-Ray 06/04/20 07:00 IMPRESSION: Increasing right-sided pleural effusion. Persistent basilar atelectasis. Assessment and Plan - Diagnosis (1) Acute respiratory failure with hypoxia Is this a current diagnosis for this admission?: Yes (2) Bilateral pneumonia Qualifiers: Pneumonia type: due to unspecified organism Lung location: lower lobe of lung Qualified Code(s): J18.9 - Pneumonia, unspecified organism Is this a current diagnosis for this admission?: Yes (3) Acute exacerbation of chronic obstructive pulmonary disease (COPD) Is this a current diagnosis for this admission?: Yes (4) Hypertensive emergency Is this a current diagnosis for this admission?: Yes (5) Tachycardia Is this a current diagnosis for this admission?: Yes (6) Abnormal electrocardiogram Is this a current diagnosis for this admission?: Yes (7) Hyperglycemia due to type 2 diabetes mellitus Qualifiers: Diabetes mellitus terminal block assembler insulin use: without terminal block assembler use Qualified Code(s): E11.65 - Type 2 diabetes mellitus with hyperglycemia Is this a current diagnosis for this admission?: Yes (8) Obstructive sleep apnea of adult Is this a current diagnosis for this admission?: Yes (9) Morbid obesity with BMI of 40.0-44.9, adult Is this a current diagnosis for this admission?: Yes (10) Pleural effusion due to congestive heart failure Is this a current diagnosis for this admission?: Yes (11) Chronic diastolic heart failure Is this a current diagnosis for this admission?: Yes - Plan Summary Summary: 06/03/2020 Acute hypoxic respiratory failure with pneumonia The patient reports being tested for Covid twice. The last test was william roximately 1 month ago. He does have bilateral pneumonia. I will check ferritin, LDH, CRP and D-dimer. Based on results I will counseled the patient with regard to retesting during this admission. He will be treated as a patient under investigation regardless. He will be placed on ceftriaxone and azithromycin. I have taken the liberty of starting vitamin C, vitamin D, zinc and melatonin as well. Oxygen supplement to keep oxygen saturation between 90 and 94% considering his history of COPD. Exacerbation of COPD Scheduled and as needed nebulizers including Xopenex, ipratropium and budesonide. Intravenous steroids as well. Hypertensive emergency The patient's records indicate a cardiac catheterization. There is also mention of congestive heart failure. I am going to institute metoprolol and amlodipine as well as aspirin daily. He does not appear to be fluid overloaded and I will hold on diuretics at this time. During this hospitalization we will certainly obtain an echocardiogram and adjust medications accordingly. I have ordered a brain natruretic peptide as well. Tachycardia This should improve as his respiratory status improves. Monitor on telemetry at this time Abnormal EKG The patient was tachycardic and showed borderline ST changes that could be related to strain under the circumstances. We will trend troponins and repeat EKG in the morning. Hyperglycemia due to diabetes mellitus type 2 The patient will be on a controlled carbohydrate level for diet. I will institute Accu-Cheks at meals and bedtime with an aggressive Humalog sliding scale. Will review sliding scale requirements and consider adding oral medications or long-acting insulin Obstructive sleep apnea The patient does not wear CPAP at home. I explained that I am going to put him on CPAP at night. This will make him feel better. The patient actually admits that he does not sleep well at all and that he tosses and turns and does not wake up feeling refreshed. He does experience daytime somnolence. Morbid obesity BMI is 40. Reviewed how sleep apnea could contribute to obesity and obesity's additional risk factors for hypertension and heart disease as well as diabetes and respiratory failure if the obesity causes alveolar hypoventilation. The patient needs to consider aggressive diet management and initiate exercise program Multiple other diagnoses were in fact mentioned in the medical records. Because of his severe tachypnea I will need to investigate further when his breathing is improved. I will be able to get more details on the mention of heart failure and thyroid disease as well as any additional information. 06/04/2020 Breathing is much better. I believe this is mostly due to aggressive antibiotics for pneumonia (most likely bacterial community-acquired). I believe there is low probability for Covid. I will reduce the scheduled nebulizer treatments to every 6 hours and eventually transition him to inhaler therapy for outpatient use. Hypertension-blood pressure is better. Continue to adjust medications to and only treat hypertension but heart failure and possible underlying coronary disease. EKG is unchanged. The patient in fact reported that he has been told he likely had a myocardial infarction in the past. He is on aspirin, statin and beta- tino therapy as well. I have ordered an echocardiogram to further discern the type of heart failure. The patient has obstructive sleep apnea and likely has pulmonary hypertension as well. We will continue cardiac/diabetic diet with Accu-Cheks and sliding scale for hyperglycemia. The patient did report excellent sleep last night with CPAP. He now appreciates the benefit of this therapeutic modality. X-ray did show a growing right pleural effusion. Looking through his old records he has had a left pleural effusion in the past. I am going to initiate aggressive diuretic therapy at this time. We will need to monitor his renal function and electrolytes as well as intake and output. Nursing supervisory historian informed me that the patient would need to stay on 3 N. if he did not have a negative Covid test. I am going to encourage him to have the test so that we can get him off of 3 N. as soon as possible. I do not believe his respiratory failure and pneumonia are Covid related. 06/05/2020 Patient continues to feel better. Pneumonia-continue antibiotics COPD-discontinue Decadron and start prednisone 20 mg daily. Add Trelegy inhaler. Chronic diastolic heart failure-echocardiogram reveals normal ejection fraction with grade 2/4 diastolic failure. Continue diuretic regimen. Output today is over 3 L. Diabetes-the patient's hemoglobin A1c was 6.0 and he was doing a very good job controlling his sugars. Because of his steroids his white count and glucose levels are elevated. Switching to prednisone should help both. We will continue to monitor. Hypertension-continue current regimen as blood pressures are very well controlled Covid testing has been obtained as the patient would not be able to leave 3 N. without a negative test. My expectation is that the test will be negative. 06/06/2020 Respiratory failure with COPD and pneumonia-patient is now on room air. I have transitioned his furosemide to oral dosing. I have introduced an inhaler and will change his nebulizer treatments to as needed. White blood cell count is down to 14,000 from 19,000. Complete antibiotics as ordered. Transition to a regimen for outpatient use. Diastolic heart failure-doing well on the current regimen. Will continue as an outpatient. Diabetes-the steroids have elevated sugar. We are tapering the steroids. I will start metformin as an initial medication for outpatient use. Covid serology is still pending but anticipate negative result. Chemistries and electrolytes, with the exception of magnesium, are normal. Magnesium oxide therapy started. - Time Time Spent with patient: 15-24 minutes Medications reviewed and adjusted accordingly: Yes Anticipated Discharge Disposition: Home, Self Care Anticipated Discharge Timeframe: within 48 hours
[2020-06-06] MEDS: METFORMIN HCL 500 MG TABLET PO SCH (16:21)
[2020-06-06] MEDS: MAGNESIUM OXIDE 400 MG TABLET PO SCH (17:22)
[2020-06-06] MEDS: ASPIRIN 81 MG TABLET, ENT COATED PO SCH (22:48)
[2020-06-06] MEDS: ATORVASTATIN CALCIUM 40 MG TABLET PO SCH (22:48)
[2020-06-06] MEDS: MELATONIN 5 MG TABLET PO SCH (22:48)
[2020-06-07] MEDS: PANTOPRAZOLE SODIUM 40 MG TABLET.DR PO SCH (05:58)
[2020-06-07] MEDS: METFORMIN HCL 500 MG TABLET PO SCH ×2 (08:33→17:11)
[2020-06-07] MEDS: INSULIN LISPRO 100 UNIT/ML 3 ML VIAL SUBCUT SCH ×4 (08:33→21:36)
[2020-06-07] MEDS: PREDNISONE 20 MG TABLET PO SCH (09:19)
[2020-06-07] MEDS: ZINC SULFATE 220 MG CAPSULE PO SCH (09:19)
[2020-06-07] MEDS: METOPROLOL SUCCINATE 50 MG TAB.SR.24H PO SCH (09:19)
[2020-06-07] MEDS: CHOLECALCIFEROL (D3) 1,000 UNIT (25 MCG) TABLET PO SCH (09:19)
[2020-06-07] MEDS: MAGNESIUM OXIDE 400 MG TABLET PO SCH ×2 (09:19→17:11)
[2020-06-07] MEDS: LOSARTAN POTASSIUM 25 MG TABLET PO SCH (09:19)
[2020-06-07] MEDS: GUAIFENESIN 600 MG TABLET.SA PO SCH ×2 (09:19→21:36)
[2020-06-07] MEDS: ASCORBIC ACID 500 MG TABLET PO SCH ×2 (09:19→17:11)
[2020-06-07] MEDS: FLUTICASONE/UMECLIDIN/VILANTER 100-62.5-25 MCG/DOSE IH SCH (09:20)
[2020-06-07] MEDS: FUROSEMIDE INJ/PF 40 MG/4 ML SDV IV SCH (09:20)
[2020-06-07] MEDS: CEFTRIAXONE 1 GM/D5W RTU 1 GM/50 ML RTUPB IV SCH (09:20)
[2020-06-07] MEDS: ENOXAPARIN SODIUM INJ 40 MG/0.4 ML DISP.SYRIN SUBCUT SCH (09:27)
[2020-06-07] MEDS: AZITHROMYCIN 500 MG in DEXTROSE 5%-WATER 250 ML IV SCH (09:32)
--- NOTE | 2020-06-07 13:24 | PDOC PROGRESS REPORT ---
Subjective Progress Note for:: 06/07/20 Subjective:: On CPAP at this time. He feels very tired. He states that he did wear CPAP last night. He seems more short of breath today. He is just finishing a nebulizer treatment. Reason For Visit: PNEUMONIA-BILATERAL/MULTIFOCAL, PUI COVID-19 Physical Exam Vital Signs: Temp Pulse Resp BP Pulse Ox 97.9 F 79 20 127/90 H 99 06/07/20 10:58 06/07/20 10:58 06/07/20 10:58 06/07/20 10:58 06/07/20 10:58 Intake & Output 06/06/20 06/07/20 06/08/20 06:59 06:59 06:59 Intake Total 1670 50 Output Total 900 750 Balance 770 -700 Weight 111.2 kg General appearance: PRESENT: cooperative, mild distress, morbidly obese, well- developed Head exam: PRESENT: atraumatic, normocephalic Ear exam: PRESENT: normal external ear exam. ABSENT: bleeding, drainage Mouth exam: PRESENT: moist, tongue midline Respiratory exam: PRESENT: symmetrical, other - Breathing is tight but no wheezes. ABSENT: rales, rhonchi, wheezes Cardiovascular exam: PRESENT: RRR, +S1, +S2. ABSENT: bradycardia, diastolic murmur, irregular rhythm, systolic murmur, tachycardia GI/Abdominal exam: PRESENT: normal bowel sounds, soft, other - Protuberant abdomen. ABSENT: tenderness Rectal exam: PRESENT: deferred Gentrourinary exam: ABSENT: indwelling catheter Neurological exam: PRESENT: alert, awake, oriented to person, oriented to place, oriented to time, oriented to situation, CN II-XII grossly intact. ABSENT: altered Psychiatric exam: ABSENT: agitated, anxious Focused psych exam: ABSENT: delusional, paranoid, restlessness Results Laboratory Results: 06/06/20 05:45 06/06/20 05:45 06/03/20 06/03/20 06/03/20 08:38 15:04 18:57 Troponin I 0.026 0.023 0.022 NT-Pro-B Natriuret Pep 49 Impressions: Abdomen/Pelvis CT 06/03/20 08:32 IMPRESSION: Bibasilar consolidation worrisome for pneumonia. Chest X-Ray 06/04/20 07:00 IMPRESSION: Increasing right-sided pleural effusion. Persistent basilar atelectasis. Assessment and Plan - Diagnosis (1) Acute respiratory failure with hypoxia Is this a current diagnosis for this admission?: Yes (2) Bilateral pneumonia Qualifiers: Pneumonia type: due to unspecified organism Lung location: lower lobe of lung Qualified Code(s): J18.9 - Pneumonia, unspecified organism Is this a current diagnosis for this admission?: Yes (3) Acute exacerbation of chronic obstructive pulmonary disease (COPD) Is this a current diagnosis for this admission?: Yes (4) Hypertensive emergency Is this a current diagnosis for this admission?: Yes (5) Tachycardia Is this a current diagnosis for this admission?: Yes (6) Abnormal electrocardiogram Is this a current diagnosis for this admission?: Yes (7) Hyperglycemia due to type 2 diabetes mellitus Qualifiers: Diabetes mellitus terminologist insulin use: without [facility] use Qualified Code(s): E11.65 - Type 2 diabetes mellitus with hyperglycemia Is this a current diagnosis for this admission?: Yes (8) Obstructive sleep apnea of adult Is this a current diagnosis for this admission?: Yes (9) Morbid obesity with BMI of 40.0-44.9, adult Is this a current diagnosis for this admission?: Yes (10) Pleural effusion due to congestive heart failure Is this a current diagnosis for this admission?: Yes (11) Chronic diastolic heart failure Is this a current diagnosis for this admission?: Yes - Plan Summary Summary: 06/03/2020 Acute hypoxic respiratory failure with pneumonia The patient reports being tested for Covid twice. The last test was approximately 1 month ago. He does have bilateral pneumonia. I will check ferritin, LDH, CRP and D-dimer. Based on results I will counseled the patient with regard to retesting during this admission. He will be treated as a patient under investigation regardless. He will be placed on ceftriaxone and azithromycin. I have taken the liberty of starting vitamin C, vitamin D, zinc and melatonin as well. Oxygen supplement to keep oxygen saturation between 90 and 94% considering his history of COPD. Exacerbation of COPD Scheduled and as needed nebulizers including Xopenex, ipratropium and budesonide. Intravenous steroids as well. Hypertensive emergency The patient's records indicate a cardiac catheterization. There is also mention of congestive heart failure. I am going to institute metoprolol and amlodipine as well as aspirin daily. He does not appear to be fluid overloaded and I will hold on diuretics at this time. During this hospitalization we will certainly o btain an echocardiogram and adjust medications accordingly. I have ordered a brain natruretic peptide as well. Tachycardia This should improve as his respiratory status improves. Monitor on telemetry at this time Abnormal EKG The patient was tachycardic and showed borderline ST changes that could be related to strain under the circumstances. We will trend troponins and repeat EKG in the morning. Hyperglycemia due to diabetes mellitus type 2 The patient will be on a controlled carbohydrate level for diet. I will i nstitute Accu-Cheks at meals and bedtime with an aggressive Humalog sliding scale. Will review sliding scale requirements and consider adding oral medications or long-acting insulin Obstructive sleep apnea The patient does not wear CPAP at home. I explained that I am going to put him on CPAP at night. This will make him feel better. The patient actually admits that he does not sleep well at all and that he tosses and turns and does not wake up feeling refreshed. He does experience daytime somnolence. Morbid obesity BMI is 40. Reviewed how sleep apnea could contribute to obesity and obesity's additional risk factors for hypertension and heart disease as well as diabetes and respiratory failure if the obesity causes alveolar hypoventilation. The patient needs to consider aggressive diet management and initiate exercise program Multiple other diagnoses were in fact mentioned in the medical records. Because of his severe tachypnea I will need to investigate further when his breathing is improved. I will be able to get more details on the mention of heart failure and thyroid disease as well as any additional information. 06/04/2020 Breathing is much better. I believe this is mostly due to aggressive antibiotics for pneumonia (most likely bacterial community-acquired). I believe there is low probability for Covid. I will reduce the scheduled nebulizer treatments to every 6 hours and eventually transition him to inhaler therapy for outpatient use. Hypertension-blood pressure is better. Continue to adjust medications to and only treat hypertension but heart failure and possible underlying coronary disease. EKG is unchanged. The patient in fact reported that he has been told he likely had a myocardial infarction in the past. He is on aspirin, statin and beta- tino therapy as well. I have ordered an echocardiogram to further discern the type of heart failure. The patient has obstructive sleep apnea and likely has pulmonary hypertension as well. We will continue cardiac/diabetic diet with Accu-Cheks and sliding scale for hyperglycemia. The patient did report excellent sleep last night with CPAP. He now appreciates the benefit of this therapeutic modality. X-ray did show a growing right pleural effusion. Looking through his old records he has had a left pleural effusion in the past. I am going to initiate aggressive diuretic therapy at this time. We will need to monitor his renal function and electrolytes as well as intake and output. Nursing ice platform supervisor informed me that the patient would need to stay on 3 N. if he did not have a negative Covid test. I am going to encourage him to have the test so that we can get him off of 3 N. as soon as possible. I do not believe his respiratory failure and pneumonia are Covid related. 06/05/2020 Patient continues to feel better. Pneumonia-continue antibiotics COPD-discontinue Decadron and start prednisone 20 mg daily. Add Trelegy inhaler. Chronic diastolic heart failure-echocardiogram reveals normal ejection fraction with grade 2/4 diastolic failure. Continue diuretic regimen. Output today is over 3 L. Diabetes-the patient's hemoglobin A1c was 6.0 and he was doing a very good job controlling his sugars. Because of his steroids his white count and glucose levels are elevated. Switching to prednisone should help both. We will continue to monitor. Hypertension-continue current regimen as blood pressures are very well controlled Covid testing has been obtained as the patient would not be able to leave 3 N. without a negative test. My expectation is that the test will be negative. 06/06/2020 Respiratory failure with COPD and pneumonia-patient is now on room air. I have transitioned his furosemide to oral dosing. I have introduced an inhaler and will change his nebulizer treatments to as needed. White blood cell count is down to 14,000 from 19,000. Complete antibiotics as ordered. Transition to a regimen for outpatient use. Diastolic heart failure-doing well on the current regimen. Will continue as an outpatient. Diabetes-the steroids have elevated sugar. We are tapering the steroids. I w ill start metformin as an initial medication for outpatient use. Covid serology is still pending but anticipate negative result. Chemistries and electrolytes, with the exception of magnesium, are normal. Magnesium oxide therapy started. 06/07/2020 Respiratory failure-still requiring 2 L nasal cannula and now intermittently using his CPAP during the day. Likely combination of COPD and failure. Pneumonia-continue antibiotic therapy Diastolic heart failure-continue current regimen. Adjust furosemide based on intake and output Diabetes-beginning to get better control of glucose considering steroids are on board. Continue Accu-Cheks and sliding scale in addition to Metformin Morbid obesity-likely etiology of sleep apnea. Probably has some pulmonary hypertension. We will have cardiology assess to maximize therapy. - Time Time Spent with patient: 15-24 minutes Medications reviewed and adjusted accordingly: Yes Anticipated Discharge Disposition: Home, Self Care Anticipated Discharge Timeframe: within 72 hours
[2020-06-07] MEDS ORDERED: PREDNISONE 20 MG TABLET PO ONE (17:16)
--- NOTE | 2020-06-07 17:18 | RADIOLOGY REPORT (SQ) ---
EXAM DESCRIPTION: CHEST 2 VIEWS IMAGES COMPLETED DATE/TIME: 06/07/2020 5:00 pm REASON FOR STUDY: Follow-up pneumonia, heart failure COMPARISON: Chest films 06/04/2020, 06/03/2020, 03/28/2020 EXAM PARAMETERS: NUMBER OF VIEWS: two views TECHNIQUE: Digital Frontal and Lateral radiographic views of the chest acquired. RADIATION DOSE: NA LIMITATIONS: none FINDINGS: LUNGS AND PLEURA: Trace bilateral pleural effusions in the posterior costophrenic sulci. Patchy bibasilar airspace disease atelectasis versus pneumonia. No pneumothorax. MEDIASTINUM AND HILAR STRUCTURES: No masses or contour abnormalities. HEART AND VASCULAR STRUCTURES: Stable cardiomegaly BONES: No acute findings. HARDWARE: None in the chest. OTHER: No other significant finding. IMPRESSION: Persistent bibasilar airspace disease right greater than left. Trace bilateral pleural effusions. TECHNICAL DOCUMENTATION: JOB ID: [id number] 2010 [employer]- All Rights Reserved Reading location - IP/workstation name: [email or web address]
[2020-06-07] MEDS ORDERED: LEVALBUTEROL HCL NEB 1.25 MG/3 ML AMPUL NEB PRN (17:19)
[2020-06-07] MEDS ORDERED: FUROSEMIDE INJ/PF 40 MG/4 ML SDV IV SCH (18:00)
[2020-06-07] MEDS: IPRATROPIUM/ALBUTEROL 0.5-2.5 MG/3 ML AMPUL NEB SCH (20:27)
[2020-06-07] MEDS: ATORVASTATIN CALCIUM 40 MG TABLET PO SCH (21:36)
[2020-06-07] MEDS: MELATONIN 5 MG TABLET PO SCH (21:36)
[2020-06-07] MEDS: ASPIRIN 81 MG TABLET, ENT COATED PO SCH (21:36)
[2020-06-08] MEDS: IPRATROPIUM/ALBUTEROL 0.5-2.5 MG/3 ML AMPUL NEB SCH ×3 (02:07→14:37)
[2020-06-08] MEDS: PANTOPRAZOLE SODIUM 40 MG TABLET.DR PO SCH (05:56)
[2020-06-08 06:01] LABS: ABSOLUTE LYMPHOCYTES (AUTO) 1.9 10^3/uL (0.5-4.7); ABSOLUTE MONOCYTES (AUTO) 0.8 10^3/uL (0.1-1.4); ABSOLUTE NEUT (AUTO) 10.8 10^3/uL (1.7-8.2); BASOPHILS % (AUTO) 0.2 % (0-2); EOSINOPHILS % (AUTO) 0.1 % (0-6); HEMATOCRIT 42.7 % (37.9-51.0); HEMOGLOBIN 14.7 g/dL (13.5-17.0); LYMPHOCYTES % (AUTO) 14.2 % (13-45); MEAN CORPUSCULAR HEMOGLOBIN 28.7 pg (27.0-33.4); MEAN CORPUSCULAR HGB CONC 34.5 g/dL (32.0-36.0); MEAN CORPUSCULAR VOLUME 83 fl (80-97); PLATELET COUNT 248 10^3/uL (150-450); RED BLOOD COUNT 5.13 10^6/uL (4.35-5.55); RED CELL DISTRIBUTION WIDTH 15.7 % (11.5-14.0); SEGMENTED NEUTROPHILS % (AUTO) 79.5 % (42-78); TOTAL CELLS COUNTED % (AUTO) 100 %; WHITE BLOOD COUNT 13.6 10^3/uL (4.0-10.5)
[2020-06-08 06:27] LABS: ANION GAP 12 (5-19); BLOOD UREA NITROGEN 20 mg/dL (7-20); CALCIUM 9.3 mg/dL (8.4-10.2); CARBON DIOXIDE 26 mmol/L (22-30); CHLORIDE 100 mmol/L (98-107); GLUCOSE 158 mg/dL (75-110); POTASSIUM 4.6 mmol/L (3.6-5.0)
--- NOTE | 2020-06-08 09:46 | PDOC CONSULTATION ---
Consultation Consult Date: 06/08/20 Attending physician:: WILLIAM VILLAGRAN Provider Consulted: CHRISTIAN EDDY Consult reason:: HFpEF History of Present Illness Admission Date/PCP: 06/03/20 10:47 History of Present Illness: JOSÉ ANTONIO CRISOSTOMO is a 45 year old male with history of HTN, COPD, RAMON, morbid obesity, anxiety and questionable CAD who is consulted to our service for evaluation of possible HFpEF. The patient was admitted on 06/03/20 with bilateral pneumonia. He was deemed to be not fluid overloaded therefore diuretics were held. He was then noted to have an enlarging right pleural effusion therefore his diuretics were started with improvement in his dyspnea as well as improvement in his pleural effusion. He had an uneventful night and feels better this morning. He specifically denies chest pain, dyspnea, palpitations, orthopnea, LE edema and PND. His telemetry shows NSR with PVC's. His fluid balance since admission is +3.117L. Physical Exam on 06/08/20: GENERAL: Pleasant and conversational. Oriented x3 with normal mood. Not in acute distress. Well groomed and well developed. Sitting in recliner at approximately 45 degree angle with CPAP machine on. HEENT: Normocephalic, atraumatic. Pupils equal. Sclerae anicteric. Oropharynx m oist. NECK: No JVD. No carotid bruits. LUNGS: Clear to auscultation bilaterally. Normal respiratory effort without the use of accessory muscles or intercostal retractions. CARDIOVASCULAR: Regular rate and rhythm, normal S1 and S2 without murmurs, rubs, or gallops. PMI not displaced. EXTREMITIES: No pitting edema bilaterally, no cyanosis, no clubbing. +2 pulses femoral and pedal pulses bilaterally. SKIN: No lesions or rashes. MUSCULOSKELETAL: No chest tenderness to palpation. NEUROLOGIC: Nonfocal. No gross sensory or motor deficits bilateral upper or lower extremities. Cardiac studies: TTE on 06/04/20 at [facility]: -EF 60-65%. -Trace MRAureliano Past Medical History Cardiac Medical History: Reports: Congestive Heart Failure, Hyperlipidema, Hypertension Denies: Atrial Fibrillation, Coronary Artery Disease, DVT, Myocardial Infarction, Pulmonary Embolism Pulmonary Medical History: Reports: Chronic Obstructive Pulmonary Disease (COPD), Sleep Apnea Denies: Asthma Neurological Medical History: Denies: Seizures Endocrine Medical History: Reports: Diabetes Mellitus Type 2, Hyperthyroidism Denies: Diabetes Mellitus Type 1, Hypothyroidism GI Medical History: Denies: Cirrhosis, Hepatitis Musculoskeltal Medical History: Reports: Arthritis, Gout Skin Medical History: Denies: Eczema, Psoriasis Psychiatric Medical History: Reports: Depression Hematology: Denies: Anemia, Bleeding Tendencies Past Surgical History Past Surgical History: Reports: Cardiac Catheterization, Orthopedic Surgery - Rt knee Social History Lives with: Other - Unknown Smoking Status: Former Smoker Electronic Cigarette use?: No Frequency of Alcohol Use: Occasional Hx Recreational Drug Use: No Drugs: None Hx Prescription Drug Abuse: No - Advance Directive Resuscitation Status: Full Code Family History Family History: DM, Hyperlipidemia, Hypertension, Thyroid Disfunction Parental Family History Reviewed: Yes Children Family History Reviewed: Yes Sibling(s) Family History Reviewed.: Yes Medication/Allergy Home Medications: No Home Medications 06/03/20 Allergies/Adverse Reactions: No Known Allergies Allergy (Verified 06/03/20 16:36) Physical Exam Vital Signs: Temp Pulse Resp BP Pulse Ox 98.4 F 72 16 145/80 H 96 06/07/20 23:57 06/08/20 02:10 06/08/20 04:30 06/07/20 23:57 06/08/20 02:10 Intake & Output 06/06/20 06/07/20 06/08/20 06:59 06:59 06:59 Intake Total 1670 1976 Output Total 900 2100 Balance 770 -124 Weight 111.2 kg 112.2 kg Results Laboratory Results: 06/08/20 05:08 06/08/20 05:08 06/08/20 06/08/20 05:08 05:08 WBC 13.6 H RBC 5.13 Hgb 14.7 Hct 42.7 MCV 83 MCH 28.7 MCHC 34.5 RDW 15.7 H Plt Count 248 Seg Neutrophils % 79.5 H Sodium 138.2 Potassium 4.6 Chloride 100 Carbon Dioxide 26 Anion Gap 12 BUN 20 Creatinine 0.74 Est GFR ( Amer) > 60 Glucose 158 H Calcium 9.3 Magnesium 1.6 06/03/20 06/03/20 06/03/20 08:38 15:04 18:57 Troponin I 0.026 0.023 0.022 NT-Pro-B Natriuret Pep 49 Impressions: Abdomen/Pelvis CT 06/03/20 08:32 IMPRESSION: Bibasilar consolidation worrisome for pneumonia. Chest X-Ray 06/07/20 00:00 IMPRESSION: Persistent bibasilar airspace disease right greater than left. Trace bilateral pleural effusions. 06/08/20 05:08 06/08/20 05:08 MCV 83 fl (80-97) 06/08/20 05:08 MCH 28.7 pg (27.0-33.4) 06/08/20 05:08 MCHC 34.5 g/dL (32.0-36.0) 06/08/20 05:08 RDW 15.7 % (11.5-14.0) H 06/08/20 05:08 Seg Neutrophils % 79.5 % (42-78) H 06/08/20 05:08 Carbonic Acid 0.92 mmol/L (1.05-1.35) L 06/03/20 16:25 HCO3/H2CO3 Ratio 25:1 06/03/20 16:25 ABG pH 7.51 (7.35-7.45) H 06/03/20 16:25 ABG pCO2 30.5 mmHg (35-45) L 06/03/20 16:25 ABG pO2 90.4 mmHg (80-100) 06/03/20 16:25 ABG HCO3 23.7 mmol/L (20-24) 06/03/20 16:25 ABG O2 Saturation 97.6 % (94-98) 06/03/20 16:25 ABG Base Excess 1.7 mmol/L 06/03/20 16:25 FiO2 40% 06/03/20 16:25 Chloride 100 mmol/L (98-107) 06/08/20 05:08 Carbon Dioxide 26 mmol/L (22-30) 06/08/20 05:08 Anion Gap 12 (5-19) 06/08/20 05:08 Est GFR ( Amer) > 60 (>60) 06/08/20 05:08 Glucose 158 mg/dL (75-110) H 06/08/20 05:08 Lactic Acid 1.2 mmol/L (0.7-2.1) 06/03/20 08:38 Calcium 9.3 mg/dL (8.4-10.2) 06/08/20 05:08 Magnesium 1.6 mg/dL (1.6-2.3) 06/08/20 05:08 Ferritin 102.00 ng/mL (17.9-464.0) 06/03/20 15:04 Total Bilirubin 1.6 mg/dL (0.2-1.3) H 06/03/20 08:38 AST 25 U/L (17-59) 06/03/20 08:38 Alkaline Phosphatase 118 U/L (38-126) 06/03/20 08:38 C-Reactive Protein 56.4 mg/L (<10.0) H 06/03/20 15:04 Total Protein 8.6 g/dL (6.3-8.2) H 06/03/20 08:38 Albumin 4.1 g/dL (3.5-5.0) 06/03/20 08:38 Triglycerides 45 mg/dL (<150) 06/04/20 04:30 Cholesterol 159.19 mg/dL (0-200) 06/04/20 04:30 LDL Cholesterol Direct 86 mg/dL (<100) 06/04/20 04:30 VLDL Cholesterol 9.0 mg/dL (10-31) L 06/04/20 04:30 HDL Cholesterol 48 mg/dL (>40) 06/04/20 04:30 TSH 0.25 uIU/mL (0.47-4.68) L 06/04/20 04:30 Free T4 1.14 ng/dL (0.78-2.19) 06/04/20 04:30 Free T3 pg/mL 2.77 pg/mL (2.77-5.27) 06/04/20 04:30 Urine Color YELLOW 06/03/20 17:11 Urine Appearance CLEAR 06/03/20 17:11 Urine pH 6.0 (5.0-9.0) 06/03/20 17:11 Ur Specific [place] 1.013 06/03/20 17:11 Urine Protein 100 mg/dL (NEGATIVE) H 06/03/20 17:11 Urine Glucose (UA) NEGATIVE mg/dL (NEGATIVE) 06/03/20 17:11 Urine Ketones NEGATIVE mg/dL (NEGATIVE) 06/03/20 17:11 Urine Blood NEGATIVE (NEGATIVE) 06/03/20 17:11 Urine RBC (Auto) 1 /HPF 06/03/20 17:11 06/03/20 06/03/20 06/03/20 08:38 15:04 18:57 Troponin I 0.026 0.023 0.022 NT-Pro-B Natriuret Pep 49 Current Medication List Generic Name Dose Route Start Last Admin Trade Name Freq PRN Reason Stop Dose Admin Acetaminophen 650 mg 06/03/20 14:47 Tylenol 325 Mg Tablet PO 07/03/20 14:46 Q4HP PRN pain or temp greater than 101F Albuterol/Ipratropium 3 ml 06/07/20 20:00 06/08/20 02:07 Duoneb 3 Ml Ampul NEB 07/07/20 19:59 3 ml RTQ6 IRA Administration Ascorbic Acid 1,000 mg 06/04/20 10:00 06/07/20 17:11 Vitamin C 500 Mg Tablet PO 07/04/20 09:59 1,000 mg BID IRA Administration Aspirin 81 mg 06/03/20 22:00 06/07/20 21:36 Ecotrin 81 Mg Ec Tablet PO 07/03/20 21:59 81 mg QHS IRA Administration Atorvastatin Calcium 40 mg 06/03/20 22:00 06/07/20 21:36 Lipitor 40 Mg Tablet PO 07/03/20 21:59 40 mg QHS IRA Administration Azithromycin 500 mg 06/08/20 10:00 Zithromax 250 Mg Tablet PO 06/11/20 09:59 DAILY IRA Cholecalciferol 2,000 unit 06/04/20 10:00 06/07/20 09:19 Vitamin D3 1000 Unit Tablet PO 07/04/20 09:59 2,000 unit DAILY IRA Administration Dextrose 12.5 gm 06/03/20 15:20 Dextrose Inj 50% Syringe (25 Gm/50 Ml) IV 07/03/20 15:19 PRN PRN FOR BG 50-69 IN ALERT PATIENT Protocol Dextrose 25 gm 06/03/20 15:20 Dextrose Inj 50% Syringe (25 Gm/50 Ml) IV 07/03/20 15:19 PRN PRN PER PROTOCOL Protocol Enoxaparin Sodium 40 mg 06/04/20 10:00 06/07/20 09:27 Lovenox Inj 40 Mg/0.4 Ml Disp.Syrin SUBCUT 07/04/20 09:59 Not Given DAILY IRA Fluticasone/Vilanterol 1 inh 06/06/20 10:00 06/07/20 09:20 Trelegy 100-62.5-25 Mcg Ellipta 14 Dose/Dpi IH 07/06/20 09:59 1 inhaler DAILY IRA Administration Furosemide 40 mg 06/08/20 10:00 Lasix Inj/Pf 40 Mg/4 Ml Sdv IV 07/08/20 09:59 DAILY IRA Glucagon 1 mg 06/03/20 15:20 Glucagen Inj 1 Mg Vial IM 07/03/20 15:19 PRN PRN Evaluate for BG < 70 Protocol Glucose 15 gm 06/03/20 15:20 Glutose 40% Gel 15 Gm Tube PO 07/03/20 15:19 PRN PRN FOR BG 50-69 IN ALERT PATIENT Protocol Glucose 30 gm 06/03/20 15:20 Glutose 40% Gel 15 Gm Tube PO 07/03/20 15:19 PRN PRN FOR BG < 50 IN ALERT PATIENT Protocol Guaifenesin 600 mg 06/03/20 22:00 06/07/20 21:36 Mucinex Sr 600 Mg Tablet.Sa PO 07/03/20 21:59 600 mg Q12 IRA Administration Guaifenesin 200 mg 06/03/20 14:47 Robitussin Syrup 200 Mg/10 Ml Ud Cup PO 07/03/20 14:46 Q4HP PRN COUGH Ceftriaxone Sodium/Dextrose 1 gm in 50 mls @ 100 mls/hr 06/04/20 10:00 06/07/20 10:00 Rocephin Rtu 1 Gm/D5w 50 Ml Premix IV 06/11/20 09:59 Infused DAILY IRA Infusion Insulin Human Lispro 0 - 16 unit 06/03/20 22:00 06/07/20 21:36 Humalog Insulin 100 Unit/1 Ml 3 Ml Vial SUBCUT 07/03/20 21:59 4 unit ACHS IRA Administration Protocol Levalbuterol HCl 1.25 mg 06/07/20 17:19 Xopenex Neb 1.25 Mg/3 Ml Ampul NEB 07/07/20 17:18 RTQ3HP PRN SHORTNESS OF BREATH Losartan Potassium 25 mg 06/05/20 10:00 06/07/20 09:19 Cozaar 25 Mg Tablet PO 07/05/20 09:59 25 mg DAILY IRA Administration Magnesium Oxide 400 mg 06/06/20 18:00 06/07/20 17:11 Mag-Ox 400 Mg Tablet PO 07/06/20 17:59 400 mg BID IRA Administration Melatonin 10 mg 06/03/20 22:00 06/07/20 21:36 Melatonin 5 Mg Tablet PO 07/03/20 21:59 10 mg QHS IRA Administration Metformin HCl 500 mg 06/06/20 16:00 06/07/20 17:11 Glucophage 500 Mg Tablet PO 07/06/20 15:59 500 mg BIDACBS IRA Administration Metoprolol Succinate 100 mg 06/05/20 10:00 06/07/20 09:19 Toprol Xl 50 Mg Tab.Sr PO 07/05/20 09:59 100 mg DAILY IRA Administration Metoprolol Tartrate 2.5 mg 06/03/20 17:33 06/03/20 21:52 Lopressor Inj/Pf 5 Mg/5 Ml Sdv IV 07/03/20 17:32 2.5 mg Q6HP PRN Administration Give For Hr > 100 Morphine Sulfate 4 mg 06/03/20 15:01 Morphine 10 Mg/Ml Inj IV 06/10/20 15:00 Q4HP PRN FOR PAIN SCALE 3-5 Nicotine 1 each 06/03/20 15:04 Nicoderm 14 Mg/24 Hr Transdermal Patch TD 07/03/20 15:03 DAILYP PRN WITHDRAWAL SYMPTOMS Nitroglycerin 1 tab 06/03/20 15:03 Nitrostat 0.4 Mg (1/150 Gr) Tabs 25/Bottle SL 07/03/20 15:02 Q5MP PRN FOR CHEST PAIN Pantoprazole Sodium 40 mg 06/04/20 06:00 06/08/20 05:[address] Tablet PO 07/04/20 05:59 40 mg Q6AM IRA Administration Prednisone 40 mg 06/08/20 10:00 Deltasone 20 Mg Tablet PO 07/08/20 09:59 DAILY IRA Sodium Chloride 2.5 ml 06/03/20 22:00 06/08/20 05:57 Saline Flush 2.5 Ml Monoject Prefil Syrin IV 07/03/20 21:59 2.5 ml Q8 IRA Administration Zinc Sulfate 220 mg 06/04/20 10:00 06/07/20 09:19 Zinc-220 Capsule PO 07/04/20 09:59 220 mg DAILY IRA Administration Discontinued Medications Generic Name Dose Route Start Last Admin Trade Name Freq PRN Reason Stop Dose Admin Albuterol/Ipratropium 3 ml 06/03/20 14:17 06/03/20 15:07 Duoneb 3 Ml Ampul NEB 06/03/20 14:18 3 ml NOW ONE Administration Albuterol/Ipratropium Confirm 06/03/20 14:22 06/03/20 14:30 Duoneb 3 Ml Ampul Administered 06/03/20 14:23 Not Given Dose 3 ml NEB .STK-MED ONE Albuterol/Ipratropium 3 ml 06/04/20 20:00 06/06/20 14:11 Duoneb 3 Ml Ampul NEB 07/04/20 19:59 3 ml RTQ6 IRA Administration Albuterol/Ipratropium 3 ml 06/06/20 14:59 Duoneb 3 Ml Ampul NEB 07/06/20 14:56 RTQ6HP PRN FOR WHEEZING Amlodipine Besylate 5 mg 06/04/20 10:00 Norvasc 5 Mg Tablet PO 07/04/20 09:59 DAILY IRA Amlodipine Besylate 10 mg 06/04/20 10:00 06/04/20 10:36 Norvasc 10 Mg Tablet PO 07/04/20 09:59 10 mg DAILY IRA Administration Amlodipine Besylate 5 mg 06/03/20 18:00 06/03/20 18:25 Norvasc 5 Mg Tablet PO 06/03/20 18:01 5 mg NOW ONE Administration Aspirin 325 mg 06/03/20 14:23 06/03/20 15:03 Aspirin 325 Mg Tablet PO 06/03/20 14:24 325 mg NOW ONE Administration Azithromycin 500 mg 06/03/20 09:25 06/03/20 09:54 Zithromax 250 Mg Tablet PO 06/03/20 09:26 500 mg NOW ONE Administration Budesonide 0.5 mg 06/03/20 14:17 06/03/20 14:28 Pulmicort Neb 0.5 Mg/2 Ml Ampul NEB 06/03/20 14:18 0.5 mg NOW ONE Administration Budesonide Confirm 06/03/20 14:23 06/03/20 14:30 Pulmicort Neb 0.5 Mg/2 Ml Ampul Administered 06/03/20 14:24 Not Given Dose 0.5 mg NEB .STK-MED ONE Dexamethasone Sodium Phosphate 6 mg 06/04/20 10:00 06/05/20 09:44 Decadron Inj 10 Mg/1 Ml Vial IV 07/04/20 09:59 6 mg DAILY IRA Administration Furosemide 40 mg 06/04/20 15:28 06/04/20 16:55 Lasix Inj/Pf 40 Mg/4 Ml Sdv IV 06/04/20 15:29 40 mg NOW ONE Administration Furosemide 40 mg 06/05/20 10:00 06/07/20 09:20 Lasix Inj/Pf 40 Mg/4 Ml Sdv IV 07/05/20 09:59 40 mg DAILY IRA Administration Furosemide 40 mg 06/07/20 18:00 Lasix Inj/Pf 40 Mg/4 Ml Sdv IV 07/07/20 17:59 BID IRA Hydralazine HCl 10 mg 06/03/20 14:18 06/03/20 14:28 Apresoline Inj/Pf 20 Mg/1 Ml Sdv IV 06/03/20 14:19 10 mg NOW ONE Administration Hydralazine HCl Confirm 06/03/20 14:23 06/03/20 14:30 Apresoline Inj/Pf 20 Mg/1 Ml Sdv Administered 06/03/20 14:24 Not Given Dose 20 mg .ROUTE .STK-MED ONE Hydralazine HCl Confirm 06/03/20 17:23 06/03/20 17:23 Apresoline Inj/Pf 20 Mg/1 Ml Sdv Administered 06/03/20 17:24 20 mg Dose Administration 20 mg .ROUTE .STK-MED ONE Sodium Chloride 1,000 mls @ 0 mls/hr 06/03/20 08:31 06/03/20 10:59 Nacl 0.9% 1000 Ml Iv Soln IV 06/03/20 08:32 Infused BOLUS ONE Infusion Wide Open Ceftriaxone Sodium/Dextrose 2 gm in 50 mls @ 100 mls/hr 06/03/20 09:24 06/03/20 10:29 Rocephin Rtu 2 Gm/D5w 50 Ml Premix Bag IV 06/03/20 09:53 Infused NOW ONE Infusion Lactated Ringer's 1,000 mls @ 100 mls/hr 06/03/20 14:47 06/04/20 15:29 Lactated Ringers 1000 Ml Iv Soln IV Infused CONTINUOUS PRN Infusion THIS MED IS NOT "PRN" Azithromycin 500 mg/ Dextrose 250 mls @ 250 mls/hr 06/04/20 10:00 06/07/20 12:30 IV 06/11/20 09:59 Infused DAILY [facility] Infusion Insulin Human Lispro Confirm 06/04/20 16:57 06/04/20 17:37 Humalog Insulin 100 Unit/1 Ml 3 Ml Vial Administered 06/04/20 16:58 Not Given Dose 1 unit .ROUTE .STK-MED ONE Insulin Human Regular 0 - 12 unit 06/03/20 16:00 06/03/20 16:11 Humulin R (Pyxis) Insulin 100 Unit/Ml 3ml SUBCUT 07/03/20 15:59 Not Given BIDACBS [facility] Protocol Ipratropium [place] 0.5 mg 06/03/20 16:00 06/04/20 14:20 Atrovent 0.02% Neb 0.5 Mg/2.5 Ml Ampul NEB 07/03/20 15:59 Not Given RTQ4 [facility] Levalbuterol HCl 1.25 mg 06/03/20 16:00 06/04/20 14:20 Xopenex Neb 1.25 Mg/3 Ml Ampul NEB 07/03/20 15:59 Not Given RTQ4 [facility] Methylprednisolone Sodium Succinate 125 mg 06/03/20 14:17 06/03/20 14:28 Solu-Medrol Inj/Pf 125 Mg/2 Ml Sdv IV 06/03/20 14:18 125 mg NOW ONE Administration Methylprednisolone Sodium Succinate Confirm 06/03/20 14:23 06/03/20 14:30 Solu-Medrol Inj/Pf 125 Mg/2 Ml Sdv Administered 06/03/20 14:24 Not Given Dose 125 mg .ROUTE .STK-MED ONE Metoprolol Succinate 25 mg 06/04/20 10:00 Toprol Xl 25 Mg Tab.Sr PO 07/04/20 09:59 DAILY [facility] Metoprolol Succinate 50 mg 06/04/20 10:00 06/04/20 10:36 Toprol Xl 50 Mg Tab.Sr PO 07/04/20 09:59 50 mg DAILY IRA Administration Metoprolol Tartrate 2.5 mg 06/03/20 14:22 06/03/20 15:02 Lopressor Inj/Pf 5 Mg/5 Ml Sdv IV 06/03/20 14:23 2.5 mg NOW ONE Administration Morphine Sulfate 4 mg 06/03/20 14:22 06/03/20 15:02 Morphine 10 Mg/Ml Inj IV 06/03/20 14:23 4 mg NOW ONE Administration Nitroglycerin 1 each 06/03/20 14:23 06/03/20 15:02 Nitro-Dur 5 Mg (0.2 Mg/Hr) Transdermal Patch TD 06/03/20 14:24 1 each NOW ONE Administration Nitroglycerin 1 each 06/04/20 10:00 06/06/20 09:06 Nitro-Dur 10 Mg (0.4mg/Hr) Transdermal Patch TD 07/04/20 09:59 1 each DAILY IRA Administration Prednisone 20 mg 06/06/20 10:00 06/07/20 09:19 Deltasone 20 Mg Tablet PO 07/06/20 09:59 20 mg DAILY IRA Administration Prednisone 20 mg 06/07/20 17:16 06/07/20 17:46 Deltasone 20 Mg Tablet PO 06/07/20 17:17 20 mg NOW ONE Administration Assessment & Plan - Diagnosis (1) Heart failure with preserved ejection fraction Qualifiers: Heart failure chronicity: acute on chronic Qualified Code(s): I50.33 - Acute on chronic diastolic (congestive) heart failure Is this a current diagnosis for this admission?: Yes Plan: The patient appears comfortably and in no acute distress. He is diuresing well although continues to have a positive fluid balance and his BP is above goal of 130/80 or less. Recommendations: -Low sodium diet, less than 1500 mg of sodium daily. -Restrict fluids to 1500 cc daily. -Continue with diuresis. -Daily BMP, Mg and replace electrolytes as needed. -Increase Cozaar to 50mg daily. -Please notify cardiology when the patient is about to be discharged to arrange for office follow up. -Cardiology does not have further recommendations, we will sign off the case for now please reconsult if clinically indicated. (2) Bilateral pneumonia Qualifiers: Pneumonia type: due to unspecified organism Lung location: lower lobe of lung Qualified Code(s): J18.9 - Pneumonia, unspecified organism Is this a current diagnosis for this admission?: Yes Plan: Further management per inpatient team. (3) Hypertension Qualifiers: Hypertension type: essential hypertension Qualified Code(s): I10 - Essential (primary) hypertension Is this a current diagnosis for this admission?: Yes Plan: The patient continues to be hypertensive. His goal BP is 130/80 or less. Recommendations: -Low sodium diet. -Increase Cozaar to 50mg daily. -I will defer further management to primary team.
[2020-06-08] MEDS: CEFTRIAXONE 1 GM/D5W RTU 1 GM/50 ML RTUPB IV SCH (09:49)
[2020-06-08] MEDS: METFORMIN HCL 500 MG TABLET PO SCH ×2 (09:50→17:46)
[2020-06-08] MEDS: CHOLECALCIFEROL (D3) 1,000 UNIT (25 MCG) TABLET PO SCH (09:50)
[2020-06-08] MEDS: METOPROLOL SUCCINATE 50 MG TAB.SR.24H PO SCH (09:51)
[2020-06-08] MEDS: MAGNESIUM OXIDE 400 MG TABLET PO SCH ×2 (09:51→17:46)
[2020-06-08] MEDS: GUAIFENESIN 600 MG TABLET.SA PO SCH (09:52)
[2020-06-08] MEDS: ASCORBIC ACID 500 MG TABLET PO SCH ×2 (09:52→17:46)
[2020-06-08] MEDS: ENOXAPARIN SODIUM INJ 40 MG/0.4 ML DISP.SYRIN SUBCUT SCH ×3 (09:52→10:02)
[2020-06-08] MEDS: FLUTICASONE/UMECLIDIN/VILANTER 100-62.5-25 MCG/DOSE IH SCH (09:53)
[2020-06-08] MEDS: ZINC SULFATE 220 MG CAPSULE PO SCH (09:53)
[2020-06-08] MEDS ORDERED: LOSARTAN POTASSIUM 50 MG TABLET PO SCH (10:00)
[2020-06-08] MEDS ORDERED: FUROSEMIDE INJ/PF 40 MG/4 ML SDV IV SCH (10:00)
[2020-06-08] MEDS ORDERED: PREDNISONE 20 MG TABLET PO SCH (10:00)
[2020-06-08] MEDS ORDERED: AZITHROMYCIN 250 MG TABLET PO SCH (10:00)
[2020-06-08] MEDS: INSULIN LISPRO 100 UNIT/ML 3 ML VIAL SUBCUT SCH (10:07)
[2020-06-08 17:37] VITALS: BP 143/91
--- NOTE | 2020-06-09 06:58 | PDOC DISCHARGE SUMMARY ---
Impression - Admit/DC Date/PCP Admission Date/Primary Care Provider: 06/03/20 10:47 Discharge Date: 06/08/20 - Discharge Diagnosis (1) Abnormal electrocardiogram Is this a current diagnosis for this admission?: Yes (2) Acute exacerbation of chronic obstructive pulmonary disease (COPD) Is this a current diagnosis for this admission?: Yes (3) Acute respiratory failure with hypoxia Is this a current diagnosis for this admission?: Yes (4) Bilateral pneumonia Is this a current diagnosis for this admission?: Yes (5) Chronic diastolic heart failure Is this a current diagnosis for this admission?: Yes (6) Hyperglycemia due to type 2 diabetes mellitus Is this a current diagnosis for this admission?: Yes (7) Hypertensive emergency Is this a current diagnosis for this admission?: Yes (8) Morbid obesity with BMI of 40.0-44.9, adult Is this a current diagnosis for this admission?: Yes (9) Obstructive sleep apnea Is this a current diagnosis for this admission?: Yes (10) Pleural effusion due to congestive heart failure Is this a current diagnosis for this admission?: Yes (11) Tachycardia Is this a current diagnosis for this admission?: Yes - Assessment Summary: José Antonio Alvarez is a 45 year old male who presented for evaluation and treatment of shortness of breath. Pt with multiple comorbidities including COPD, obstructive sleep apnea, hypertension, diabetes, and chronic diastolic heart failure. Patient is homeless and without primary care provider. On initial presentation patient was noted to be in acute respiratory failure with hypoxia with bilateral pneumonia, acute COPD exacerbation and hypertensive emergency. SOB improved significantly with course of antibiotics and nebulizer treatments. We were able to transition him to inhaler therapy during the day with CPAP at night. Prior to discharge pt with O2 saturation >95% on room air at rest and with ambulation. Pt's hospital course was complicated with hreat failure. This was evaluated and treated by cardiology. Echocardiogram obtained noting LVEF 60-65%, this was treated with Lasix and Cozaar. Over the course of hospitalization his blood pressure was found to be elevated as was treated with Cozaar and metoprolol. He was started on 81 mg aspirin and 40 mg atorvastatin daily for cardiac health. He is to follow low-sodium diet less than 1500 mg sodium daily restrict fluids to 1500 cc daily and weigh himself daily. He is scheduled for a follow-up visit with Dr. Yi within 1 week. - Additional Information Resuscitation Status: Full Code Discharge Diet: Cardiac, Diabetic Discharge Activity: Activity As Tolerated [facility]: [facility]NO [facility]AL MD] - CHRISTIAN YI MD [ACTIVE PROVISIONAL STAFF] - Prescriptions: Losartan Potassium [Cozaar 50 mg Tablet] 50 mg PO DAILY #30 tablet Aspirin [Ecotrin 81 mg EC Tablet] 81 mg PO QHS #30 tabec Furosemide 40 mg PO DAILY #30 ml Metformin HCl [Glucophage 500 mg Tablet] 500 mg PO BIDACBS #30 tablet Atorvastatin Calcium [Lipitor 40 mg Tablet] 40 mg PO QHS #30 tablet Metoprolol Succinate [Toprol Xl 50 mg Tab.sr] 100 mg PO DAILY #60 tab.sr.24h Fluticasone/Umeclidin/Vilanter [Trelegy 100-62.5-25 Mcg Ellipta 14 Dose/Dpi] 1 inh IH DAILY #1 inhaler Home Medications: Aspirin [Ecotrin 81 mg EC Tablet] 81 mg PO QHS #30 tabec 06/08/20 Atorvastatin Calcium [Lipitor 40 mg Tablet] 40 mg PO QHS #30 tablet 06/08/20 Fluticasone/Umeclidin/Vilanter [Trelegy 100-62.5-25 Mcg Ellipta 14 Dose/Dpi] 1 inh IH DAILY #1 inhaler 06/08/20 Furosemide 40 mg PO DAILY #30 ml 06/08/20 Losartan Potassium [Cozaar 50 mg Tablet] 50 mg PO DAILY #30 tablet 06/08/20 Metformin HCl [Glucophage 500 mg Tablet] 500 mg PO BIDACBS #30 tablet 06/08/20 Metoprolol Succinate [Toprol Xl 50 mg Tab.sr] 100 mg PO DAILY #60 tab.sr.24h 06/08/20 History of Present Illiness History of Present Illness: As per admitting HPI on 06/03/2020 "History and physical was somewhat abbreviated due to the patient's respiratory status with tachypnea JOSÉ ANTONIO ALVAREZ is a 45 year old male who does not have a primary care provider. He is morbidly obese and states that in the past he has had a cardiac catheterization in [place] (no stenosis noted) and carries a diagnosis of COPD and hypertension. He has not established with a primary care provider locally and has been out of all of his medications. He was unable to tell me h is medications due to severe dyspnea. It was also noted that he was markedly hypertensive and very uncomfortable. Laboratory studies revealed a white blood cell count of 11.6 with a normal hemoglobin and platelet count. Serum chemistries revealed a slightly elevated glucose at 132, normal electrolytes and a total bilirubin of 1.6. Brain natruretic peptide was only 49 and the first troponin was 0.026. He actually denies chest pain. He states that he had been on a breathing machine once before but could not provide details. He has already received doses of ceftriaxone and azithromycin as well as nebulizer treatment in the emergency department." Hospital Course Hospital Course: 06/03/2020 Acute hypoxic respiratory failure with pneumonia The patient reports being tested for Covid twice. The last test was approximately 1 month ago. He does have bilateral pneumonia. I will check ferritin, LDH, CRP and D-dimer. Based on results I will counseled the patient with regard to retesting during this admission. He will be treated as a patient under investigation regardless. He will be placed on ceftriaxone and azithromycin. I have taken the liberty of starting vitamin C, vitamin D, zinc and melatonin as well. Oxygen supplement to keep oxygen saturation between 90 and 94% considering his history of COPD. Exacerbation of COPD Scheduled and as needed nebulizers including Xopenex, ipratropium and budesonide. Intravenous steroids as well. Hypertensive emergency The patient's records indicate a cardiac catheterization. There is also mention of congestive heart failure. I am going to institute metoprolol and amlodipine as well as aspirin daily. He does not appear to be fluid overloaded and I will hold on diuretics at this time. During this hospizalization we will certainly obtain an echocardiogram and adjust medications accordingly. I have ordered a brain natruretic peptide as well. Tachycardia This should improve as his respiratory status improves. Monitor on telemetry at this time Abnormal EKG The patient was tachycardic and showed borderline ST changes that could be related to strain under the circumstances. We will trend troponins and repeat EKG in the morning. Hyperglycemia due to diabetes mellitus type 2 The patient will be on a controlled carbohydrate level for diet. I will institute Accu-Cheks at meals and bedtime with an aggressive Humalog sliding scale. Will review sliding scale requirements and consider adding oral medications or long-acting insulin Obstructive sleep apnea The patient does not wear CPAP at home. I explained that I am going to put him on CPAP at night. This will make him feel better. The patient actually admits that he does not sleep well at all and that he tosses and turns and does not wake up feeling refreshed. He does experience daytime somnolence. Morbid obesity BMI is 40. Reviewed how sleep apnea could contribute to obesity and obesity's additional risk factors for hypertension and heart disease as well as diabetes and respiratory failure if the obesity causes alveolar hypoventilation. The patient needs to consider aggressive diet management and initiate exercise program Multiple other diagnoses were in fact mentioned in the medical records. Because of his severe tachypnea I will need to investigate further when his breathing is improved. I will be able to get more details on the mention of heart failure and thyroid disease as well as any additional information. 06/04/2020 Breathing is much better. I believe this is mostly due to aggressive antibio tics for pneumonia (most likely bacterial community-acquired). I believe there is low probability for Covid. I will reduce the scheduled nebulizer treatments to every 6 hours and eventually transition him to inhaler therapy for outpatient use. Hypertension-blood pressure is better. Continue to adjust medications to and only treat hypertension but heart failure and possible underlying coronary d isease. EKG is unchanged. The patient in fact reported that he has been told he likely had a myocardial infarction in the past. He is on aspirin, statin and beta- tino therapy as well. I have ordered an echocardiogram to further discern the type of heart failure. The patient has obstructive sleep apnea and likely has pulmonary hypertension as well. We will continue cardiac/diabetic diet with Accu-Cheks and sliding scale for hyperglycemia. The patient did report excellent sleep last night with CPAP. He now appreciates the benefit of this therapeutic modality. X-ray did show a growing right pleural effusion. Looking through his old records he has had a left pleural effusion in the past. I am going to initiate aggressive diuretic therapy at this time. We will need to monitor his renal function and electrolytes as well as intake and output. Nursing spinning supervisor informed me that the patient would need to stay on 3 N. if he did not have a negative Covid test. I am going to encourage him to have the test so that we can get him off of 3 N. as soon as possible. I do not believe his respiratory failure and pneumonia are Covid related. 06/05/2020 Patient continues to feel better. Pneumonia-continue antibiotics COPD-discontinue Decadron and start prednisone 20 mg daily. Add Trelegy inhaler. Chronic diastolic heart failure-echocardiogram reveals normal ejection fraction with grade 2/4 diastolic failure. Continue diuretic regimen. Output today is over 3 L. Diabetes-the patient's hemoglobin A1c was 6.0 and he was doing a very good job controlling his sugars. Because of his steroids his white count and glucose levels are elevated. Switching to prednisone should help both. We will continue to monitor. Hypertension-continue current regimen as blood pressures are very well controlled Covid testing has been obtained as the patient would not be able to leave 3 N. without a negative test. My expectation is that the test will be negative. 06/06/2020 Respiratory failure with COPD and pneumonia-patient is now on room air. I have transitioned his furosemide to oral dosing. I have introduced an inhaler and will change his nebulizer treatments to as needed. White blood cell count is down to 14,000 from 19,000. Complete antibiotics as ordered. Transition to a regimen for outpatient use. Diastolic heart failure-doing well on the current regimen. Will continue as an outpatient. Diabetes-the steroids have elevated sugar. We are tapering the steroids. I will start metformin as an initial medication for outpatient use. Covid serology is still pending but anticipate negative result. Chemistries and electrolytes, with the exception of magnesium, are normal. Magnesium oxide therapy started. 06/07/2020 Respiratory failure-still requiring 2 L nasal cannula and now intermittently using his CPAP during the day. Likely combination of COPD and failure. Pneumonia-continue antibiotic therapy Diastolic heart failure-continue current regimen. Adjust furosemide based on intake and output Diabetes-beginning to get better control of glucose considering steroids are on board. Continue Accu-Cheks and sliding scale in addition to Metformin Morbid obesity-likely etiology of sleep apnea. Probably has some pulmonary hypertension. We will have cardiology assess to maximize therapy. Physical Exam Vital Signs: Temp Pulse Resp BP Pulse Ox 98.6 F 88 16 143/91 H 98 06/08/20 17:34 06/08/20 17:34 06/08/20 17:34 06/08/20 17:34 06/08/20 17:34 Intake & Output 06/07/20 06/08/20 06/09/20 06:59 06:59 06:59 Intake Total 1670 1976 355 Output Total 900 2100 2500 Balance 505 -682 -4279 Weight 111.2 kg 112.2 kg General appearance: PRESENT: no acute distress, cooperative, obese Head exam: PRESENT: atraumatic, normocephalic Eye exam: PRESENT: EOMI. ABSENT: scleral icterus Mouth exam: PRESENT: moist, tongue midline Neck exam: PRESENT: full ROM. ABSENT: tenderness Respiratory exam: PRESENT: clear to auscultation nitin, symmetrical, unlabored. ABSENT: rales, tachypnea, wheezes Cardiovascular exam: PRESENT: RRR, +S1, +S2. ABSENT: diastolic murmur, systolic murmur, tachycardia Pulses: PRESENT: normal radial pulses GI/Abdominal exam: PRESENT: normal bowel sounds, soft. ABSENT: tenderness Extremities exam: PRESENT: full ROM. ABSENT: pedal edema Musculoskeletal exam: PRESENT: ambulatory, full ROM. ABSENT: deformity, dislocation Neurological exam: PRESENT: alert, awake, oriented to person, oriented to place, oriented to time, oriented to situation, CN II-XII grossly intact. ABSENT: motor sensory deficit Psychiatric exam: PRESENT: appropriate affect, normal mood Skin exam: PRESENT: dry, intact, warm Results Laboratory Results: WBC 13.6 10^3/uL (4.0-10.5) H 06/08/20 05:08 RBC 5.13 10^6/uL (4.35-5.55) 06/08/20 05:08 Hgb 14.7 g/dL (13.5-17.0) 06/08/20 05:08 Hct 42.7 % (37.9-51.0) 06/08/20 05:08 MCV 83 fl (80-97) 06/08/20 05:08 MCH 28.7 pg (27.0-33.4) 06/08/20 05:08 MCHC 34.5 g/dL (32.0-36.0) 06/08/20 05:08 RDW 15.7 % (11.5-14.0) H 06/08/20 05:08 Plt Count 248 10^3/uL (150-450) 06/08/20 05:08 Lymph % (Auto) 14.2 % (13-45) 06/08/20 05:08 Amelia % (Auto) 6.0 % (3-13) 06/08/20 05:08 Eos % (Auto) 0.1 % (0-6) 06/08/20 05:08 Baso % (Auto) 0.2 % (0-2) 06/08/20 05:08 Absolute Neuts (auto) 10.8 10^3/uL (1.7-8.2) H 06/08/20 05:08 Absolute Lymphs (auto) 1.9 10^3/uL (0.5-4.7) 06/08/20 05:08 Absolute Monos (auto) 0.8 10^3/uL (0.1-1.4) 06/08/20 05:08 Absolute Eos (auto) 0.0 10^3/uL (0.0-0.6) 06/08/20 05:08 Absolute Basos (auto) 0.0 10^3/uL (0.0-0.2) 06/08/20 05:08 Seg Neutrophils % 79.5 % (42-78) H 06/08/20 05:08 Platelet Estimate Cancelled 06/03/20 08:38 D-Dimer 2.59 ug/mL (0.00-0.50) H 06/03/20 15:04 Carbonic Acid 0.92 mmol/L (1.05-1.35) L 06/03/20 16:25 HCO3/H2CO3 Ratio 25:1 06/03/20 16:25 ABG pH 7.51 (7.35-7.45) H 06/03/20 16:25 ABG pCO2 30.5 mmHg (35-45) L 06/03/20 16:25 ABG pO2 90.4 mmHg (80-100) 06/03/20 16:25 ABG HCO3 23.7 mmol/L (20-24) 06/03/20 16:25 ABG Total CO2 24.6 mmol/L (23-27) 06/03/20 16:25 ABG O2 Saturation 97.6 % (94-98) 06/03/20 16:25 ABG Base Excess 1.7 mmol/L 06/03/20 16:25 FiO2 40% 06/03/20 16:25 Sodium 138.2 mmol/L (137-145) 06/08/20 05:08 Potassium 4.6 mmol/L (3.6-5.0) 06/08/20 05:08 Chloride 100 mmol/L (98-107) 06/08/20 05:08 Carbon Dioxide 26 mmol/L (22-30) 06/08/20 05:08 Anion Gap 12 (5-19) 06/08/20 05:08 BUN 20 mg/dL (7-20) 06/08/20 05:08 Creatinine 0.74 mg/dL (0.52-1.25) 06/08/20 05:08 Est GFR ( Amer) > 60 (>60) 06/08/20 05:08 Est GFR (MDRD) Non-Af > 60 (>60) 06/08/20 05:08 Glucose 158 mg/dL (75-110) H 06/08/20 05:08 POC Glucose 213 mg/dL (70-110) H 06/08/20 16:45 Hemoglobin A1c % 6.0 % (4.7-6.0) 06/04/20 04:30 Lactic Acid 1.2 mmol/L (0.7-2.1) 06/03/20 08:38 Calcium 9.3 mg/dL (8.4-10.2) 06/08/20 05:08 Magnesium 1.6 mg/dL (1.6-2.3) 06/08/20 05:08 Ferritin 102.00 ng/mL (17.9-464.0) 06/03/20 15:04 Total Bilirubin 1.6 mg/dL (0.2-1.3) H 06/03/20 08:38 Direct Bilirubin 0.1 mg/dL (0.0-0.4) 06/03/20 08:38 Neonat Total Bilirubin Not Reportable 06/03/20 08:38 Neonat Direct Bilirubin Not Reportable 06/03/20 08:38 Neonat Indirect Bili Not Reportable 06/03/20 08:38 AST 25 U/L (17-59) 06/03/20 08:38 ALT 22 U/L (<50) 06/03/20 08:38 Alkaline Phosphatase 118 U/L (38-126) 06/03/20 08:38 Lactate Dehydrogenase 188 U/L (120-246) 06/03/20 15:04 Troponin I 0.022 ng/mL 06/03/20 18:57 C-Reactive Protein 56.4 mg/L (<10.0) H 06/03/20 15:04 NT-Pro-B Natriuret Pep 49 pg/mL (<125) 06/03/20 08:38 Total Protein 8.6 g/dL (6.3-8.2) H 06/03/20 08:38 Albumin 4.1 g/dL (3.5-5.0) 06/03/20 08:38 Triglycerides 45 mg/dL (<150) 06/04/20 04:30 Cholesterol 159.19 mg/dL (0-200) 06/04/20 04:30 LDL Cholesterol Direct 86 mg/dL (<100) 06/04/20 04:30 VLDL Cholesterol 9.0 mg/dL (10-31) L 06/04/20 04:30 HDL Cholesterol 48 mg/dL (>40) 06/04/20 04:30 TSH 0.25 uIU/mL (0.47-4.68) L 06/04/20 04:30 Free T4 1.14 ng/dL (0.78-2.19) 06/04/20 04:30 Free T3 pg/mL 2.77 pg/mL (2.77-5.27) 06/04/20 04:30 Urine Color YELLOW 06/03/20 17:11 Urine Appearance CLEAR 06/03/20 17:11 Urine pH 6.0 (5.0-9.0) 06/03/20 17:11 Ur Specific [place] 1.013 06/03/20 17:11 Urine Protein 100 mg/dL (NEGATIVE) H 06/03/20 17:11 Urine Glucose (UA) NEGATIVE mg/dL (NEGATIVE) 06/03/20 17:11 Urine Ketones NEGATIVE mg/dL (NEGATIVE) 06/03/20 17:11 Urine Blood NEGATIVE (NEGATIVE) 06/03/20 17:11 Urine Nitrite (Reflex) NEGATIVE (NEGATIVE) 06/03/20 17:11 Urine Bilirubin NEGATIVE (NEGATIVE) 06/03/20 17:11 Urine Urobilinogen 2.0 mg/dL (<2.0) H 06/03/20 17:11 Leukocyte Esterase Rfl NEGATIVE (NEGATIVE) 06/03/20 17:11 Urine RBC (Auto) 1 /HPF 06/03/20 17:11 Urine WBC (Reflex) 1 /HPF 06/03/20 17:11 Squamous Epi Cells Auto <1 /HPF 06/03/20 17:11 Urine Mucus (Auto) RARE /LPF 06/03/20 17:11 Urine Ascorbic Acid NEGATIVE (NEGATIVE) 06/03/20 17:11 COVID-19 Source See comment 06/04/20 17:03 COVID-19 (ALESSANDRA) Not Detected (Not Detect) 06/04/20 17:03 Slides for Path Review Cancelled 06/03/20 08:38 06/03/20 06/03/20 06/03/20 08:38 15:04 18:57 Troponin I 0.026 0.023 0.022 NT-Pro-B Natriuret Pep 49 Impressions: Chest X-Ray 06/03/20 08:24 IMPRESSION: NO ACUTE RADIOGRAPHIC FINDING IN THE CHEST. Abdomen/Pelvis CT 06/03/20 08:32 IMPRESSION: Bibasilar consolidation worrisome for pneumonia. Chest X-Ray 06/04/20 07:00 IMPRESSION: Increasing right-sided pleural effusion. Persistent basilar atelectasis. Chest X-Ray 06/07/20 00:00 IMPRESSION: Persistent bibasilar airspace disease right greater than left. Trace bilateral pleural effusions. Plan Time Spent: Greater than 30 Minutes Stroke Is this a Stroke Patient?: No Acute Heart Failure Is this a Heart Failure Patient?: Yes Documentation of LVEF assessment?: Yes LVEF: LVEF Greater Than 40% Anticoagulant Therapy: Yes Discharged on Evidence-Based Beta Blockers: Yes Discharged on ARNI?: No-Document Contraindications Reason(s) not discharged on ARNI: Other - Dc on ARB ARNI Reason - Other: Dc on ARB Discharged on ARB?: Yes Discharged on ACEI?: N/A Discharged on ARB For LVEF <35%, discharged on Aldosterone Antagonist?: N/A (LVEF > or = 35%) Follow-up Appointment scheduled within 7 days?: Yes
== END 2020-06-08 18:18 | disposition home or self-care (01) | DRG 193 ==
LOC: ER 07:41 → EH 10:47 → 3N 17:30 → 4N 06-06 16:56
PROVIDERS: ADMIT Hospitalist; ATTEND Physician Assistant
PROC: 5A09357 Assistance with Respiratory Ventilation, Less than 24 Consecutive Hours, Continuous Positive Airway Pressure (ICD-10-PCS; principal; 2020-06-03)
DX: J18.9 Pneumonia, unspecified organism (principal); J96.01 Acute respiratory failure with hypoxia; J44.0 Chronic obstructive pulmonary disease with (acute) lower respiratory infection; J44.1 Chronic obstructive pulmonary disease with (acute) exacerbation; I50.32 Chronic diastolic (congestive) heart failure; I16.1 Hypertensive emergency; Z68.41 Body mass index [BMI] 40.0-44.9, adult; I27.20 Pulmonary hypertension, unspecified; I11.0 Hypertensive heart disease with heart failure; E11.65 Type 2 diabetes mellitus with hyperglycemia; E66.01 Morbid (severe) obesity due to excess calories; G47.33 Obstructive sleep apnea (adult) (pediatric); R00.0 Tachycardia, unspecified; E78.5 Hyperlipidemia, unspecified; F41.9 Anxiety disorder, unspecified; E05.90 Thyrotoxicosis, unspecified without thyrotoxic crisis or storm; M19.90 Unspecified osteoarthritis, unspecified site; M10.9 Gout, unspecified; R94.31 Abnormal electrocardiogram [ECG] [EKG]; F32.9 Major depressive disorder, single episode, unspecified; Z79.84 Long term (current) use of oral hypoglycemic drugs; Z79.82 Long term (current) use of aspirin; Z79.899 Other long term (current) drug therapy; Z11.59 Encounter for screening for other viral diseases; Z59.0 Homelessness; Z87.891 Personal history of nicotine dependence; Z83.3 Family history of diabetes mellitus; Z82.49 Family history of ischemic heart disease and other diseases of the circulatory system; Z83.49 Family history of other endocrine, nutritional and metabolic diseases
CPT/HCPCS: 36415; 36600; 71045; 71046; 74176; 80048; 80053; 80061; 81001; 82728; 82803; 82962; 83036; 83605; 83615; 83735; 83880; 84439; 84443; 84481; 84484; 85025; 85379; 86140; 87040; 87635; 93005; 93010; 93306; 94660; 96365; 99285; C9803; J0360; J0456; J0696; J1100; J1650; J1815; J1940; J2270; J2930; J3490; J7030; J7060; J7120; J7512; J7614; J7644

== ENCOUNTER 2020-06-27 15:36 | Emergency (ER) | payer SELFPAY ==
--- NOTE | 2020-06-27 17:50 | ER Document Report ---
ED Medical Screen (RME) - General Chief Complaint: Chest Pain Stated Complaint: DIFFICULTY BREATHING Time Seen by Provider: 06/27/20 17:40 TRAVEL OUTSIDE OF THE [place] IN LAST 30 DAYS: No - HPI Notes: Patient is a 45-year-old male with a history of CHF, COPD, and sleep apnea who presents with shortness of breath that began last night. Patient reports midepigastric pain and orthopnea but denies cough, fever, nausea, vomiting, and chest pain. Patient had rapid Covid testing done in route by EMS and they resulted negative. He denies any sick contacts. - Related Data Allergies/Adverse Reactions: No Known Allergies Allergy (Verified 06/27/20 17:41) Past Medical History - Social History Chew tobacco use (# tins/day): No Frequency of alcohol use: Social Drug Abuse: None - Past Medical History Cardiac Medical History: Reports: Hx Congestive Heart Failure, Hx Hypercholesterolemia, Hx Hypertension Denies: Hx Atrial Fibrillation, Hx Coronary Artery Disease, Hx DVT, Hx Heart Attack, Hx Pulmonary Embolism Pulmonary Medical History: Reports: Hx COPD, Hx Sleep Apnea Denies: Hx Asthma Neurological Medical History: Denies: Hx Seizures Endocrine Medical History: Reports: Hx Diabetes Mellitus Type 2, Hx Hyperthyroidism. Denies: Hx Diabetes Mellitus Type 1, Hx Hypothyroidism Renal/ Medical History: Denies: Hx Peritoneal Dialysis GI Medical History: Denies: Hx Cirrhosis, Hx Hepatitis Musculoskeltal Medical History: Reports Hx Arthritis, Reports Hx Gout Skin Medical History: Denies Hx Eczema, Denies Hx Psoriasis Psychiatric Medical History: Reports: Hx Anxiety, Hx Depression Infectious Medical History: Denies: Hx Hepatitis Past Surgical History: Reports: Hx Abdominal Surgery, Hx Cardiac Catheterization, Hx Orthopedic Surgery - Rt knee - Immunizations Hx Diphtheria, Pertussis, Tetanus Vaccination: Yes Physical Exam - Vital signs Vitals: Temp Pulse Resp BP Pulse Ox 99.8 F 102 H 20 169/96 H 95 06/27/20 15:51 06/27/20 15:51 06/27/20 15:51 06/27/20 15:51 06/27/20 15:51 - Respiratory Respiratory status: Labored Breath sounds: Normal Course - Re-evaluation Re-evalutation: I have greeted and performed a rapid initial assessment of this patient. A comprehensive ED assessment and evaluation of the patient, analysis of test results and completion of medical decision making process will be conducted by an additional ED providers. - Vital Signs Vital signs: Temp Pulse Resp BP Pulse Ox 99.8 F 102 H 20 169/96 H 95 06/27/20 15:51 06/27/20 15:51 06/27/20 15:51 06/27/20 15:51 06/27/20 15:51
--- NOTE | 2020-06-27 18:30 | RADIOLOGY REPORT (SQ) ---
EXAM DESCRIPTION: CHEST SINGLE VIEW IMAGES COMPLETED DATE/TIME: 06/27/2020 6:17 pm REASON FOR STUDY: shortness of breath COMPARISON: 06/07/2020. EXAM PARAMETERS: NUMBER OF VIEWS: One view. TECHNIQUE: Single frontal radiographic view of the chest acquired. RADIATION DOSE: NA LIMITATIONS: None. FINDINGS: LUNGS AND PLEURA: Faint density in the right lung base with small right effusion. Improve d aeration in the left lung base. MEDIASTINUM AND HILAR STRUCTURES: No masses. Contour normal. HEART AND VASCULAR STRUCTURES: Mild cardiomegaly, unchanged. BONES: No acute findings. Degenerative changes in the spine. HARDWARE: None in the chest. OTHER: No other significant finding. IMPRESSION: FAINT RIGHT BASILAR AIRSPACE DISEASE AND SMALL RIGHT PLEURAL EFFUSION, UNCHANGED. IMPRO JIMENEZ AERATION IN THE LEFT LUNG BASE. TECHNICAL DOCUMENTATION: JOB ID: [id number] [employer]- All Rights Reserved Reading location - IP/workstation name: [email or web address]
[2020-06-27 19:34] LABS: ABSOLUTE LYMPHOCYTES (AUTO) 0.6 10^3/uL (0.5-4.7); ABSOLUTE MONOCYTES (AUTO) 0.2 10^3/uL (0.1-1.4); LYMPHOCYTES % (AUTO) 5.4 % (13-45); TOTAL CELLS COUNTED % (AUTO) 100 %
[2020-06-27 19:40] LABS: ABSOLUTE NEUT (AUTO) 10.8 10^3/uL (1.7-8.2); BASOPHILS % (AUTO) 0.3 % (0-2); EOSINOPHILS % (AUTO) 0.1 % (0-6); HEMATOCRIT 42.3 % (37.9-51.0); HEMOGLOBIN 14.2 g/dL (13.5-17.0); MEAN CORPUSCULAR HEMOGLOBIN 27.8 pg (27.0-33.4); MEAN CORPUSCULAR HGB CONC 33.6 g/dL (32.0-36.0); MEAN CORPUSCULAR VOLUME 83 fl (80-97); MONOCYTES % (AUTO) 1.9 % (3-13); PLATELET COUNT 209 10^3/uL (150-450); RED BLOOD COUNT 5.12 10^6/uL (4.35-5.55); RED CELL DISTRIBUTION WIDTH 15.7 % (11.5-14.0); SEGMENTED NEUTROPHILS % (AUTO) 92.3 % (42-78); WHITE BLOOD COUNT 11.7 10^3/uL (4.0-10.5)
[2020-06-27 20:00] LABS: ALKALINE PHOSPHATASE 128 U/L (38-126); ANION GAP 11 (5-19); ASPARTATE AMINO TRANSFERASE 25 U/L (17-59); BILIRUBIN,DIRECT 0.2 mg/dL (0.0-0.4); BILIRUBIN,TOTAL 1.5 mg/dL (0.2-1.3); BLOOD UREA NITROGEN 10 mg/dL (7-20); CARBON DIOXIDE 28 mmol/L (22-30); CHLORIDE 99 mmol/L (98-107); GLUCOSE 166 mg/dL (75-110); POTASSIUM 4.2 mmol/L (3.6-5.0); TOTAL PROTEIN 8.4 g/dL (6.3-8.2)
[2020-06-27 20:12] LABS: TROPONIN I 0.025 ng/mL
[2020-06-27] MEDS ORDERED: IPRATROPIUM/ALBUTEROL 0.5-2.5 MG/3 ML AMPUL NEB ONE (20:54)
[2020-06-27] MEDS ORDERED: KETOROLAC TROMETHAMINE INJ/PF 30 MG/1 ML SDV IV ONE (20:54)
--- NOTE | 2020-06-27 23:12 | ER Document Report ---
ED General - General Chief Complaint: Chest Pain Stated Complaint: DIFFICULTY BREATHING Time Seen by Provider: 06/27/20 17:40 TRAVEL OUTSIDE OF THE [place] IN LAST 30 DAYS: No - HPI Notes: 45-year-old male presents with shortness of breath. Patient states that he has developed shortness of breath with taking deep breaths, located in center of his chest, and is sharp. Also worse with movement and with talking. He states that this is similar to what happens when he has pneumonia. He is also coughing, nonproductive. He denies chest pain or leg swelling. He reports compliance with his medications. - Related Data Allergies/Adverse Reactions: No Known Allergies Allergy (Verified 06/27/20 17:41) Past Medical History - General Information source: Patient - Social History Smoking Status: Never Smoker Chew tobacco use (# tins/day): No Frequency of alcohol use: Social Drug Abuse: None Family History: DM, Hyperlipidemia, Hypertension, Thyroid Disfunction - Past Medical History Cardiac Medical History: Reports: Hx Congestive Heart Failure, Hx Hypercholesterolemia, Hx Hypertension Denies: Hx Atrial Fibrillation, Hx Coronary Artery Disease, Hx DVT, Hx Heart Attack, Hx Pulmonary Embolism Pulmonary Medical History: Reports: Hx COPD, Hx Sleep Apnea Denies: Hx Asthma Neurological Medical History: Denies: Hx Seizures Endocrine Medical History: Reports: Hx Diabetes Mellitus Type 2, Hx Hyperthyroidism. Denies: Hx Diabetes Mellitus Type 1, Hx Hypothyroidism Renal/ Medical History: Denies: Hx Peritoneal Dialysis GI Medical History: Denies: Hx Cirrhosis, Hx Hepatitis Musculoskeletal Medical History: Reports Hx Arthritis, Reports Hx Gout Skin Medical History: Denies Hx Eczema, Denies Hx Psoriasis Psychiatric Medical History: Reports: Hx Anxiety, Hx Depression Infectious Medical History: Denies: Hx Hepatitis Past Surgical History: Reports: Hx Abdominal Surgery, Hx Cardiac Catheterization, Hx Orthopedic Surgery - Rt knee - Immunizations Hx Diphtheria, Pertussis, Tetanus Vaccination: Yes Review of Systems - Review of Systems Constitutional: denies: Fever EENT: No symptoms reported Cardiovascular: denies: Chest pain Respiratory: Cough, Hurts to breathe, Short of breath Gastrointestinal: No symptoms reported Genitourinary: No symptoms reported Male Genitourinary: No symptoms reported Musculoskeletal: No symptoms reported Skin: No symptoms reported Hematologic/Lymphatic: No symptoms reported Neurological/Psychological: No symptoms reported Physical Exam - Vital signs Vitals: Temp Pulse Resp BP Pulse Ox 99.8 F 102 H 20 169/96 H 95 06/27/20 15:51 06/27/20 15:51 06/27/20 15:51 06/27/20 15:51 06/27/20 15:51 - General General appearance: Appears well, Alert In distress: None - HEENT Head: Normocephalic, Atraumatic Extraocular movements intact: Yes Pupils: PERRL - Respiratory Chest status: Tender - Parasternal Breath sounds: Decreased air movement - Cardiovascular Rhythm: Regular Heart sounds: Normal auscultation - Abdominal Inspection: Obese - Extremities General lower extremity: No: Edema - Neurological Neuro grossly intact: Yes Cognition: Normal Orientation: AAOx4 - Psychological Associated symptoms: Normal affect - Skin Skin Temperature: Warm Course - Re-evaluation Re-evalutation: 45-year-old male history of COPD and CHF here with pleuritic chest pain and cough, has parasternal tenderness on exam. On exam he does have some poor air movement at bases, he is not hypoxic and overall hemodynamically stable. He does not have any peripheral edema. I am suspecting likely an acute bronchit is/COPD exacerbation type picture. Less likely CHF or true cardiac at this time. Will give neb and Toradol for symptomatic control. He had a laboratory and imaging evaluation done through the triage process.Minimal leukocytosis, elevated neutrophils. Electrolytes within normal limits. Creatinine within normal limits. Troponin within range of previous values. Chest x-ray shows a chronic right basilar infiltrate. 06/27/20 23:04 Patient reports he is feeling better after neb and Toradol. Discussed with him favoring COPD exacerbation at this time. Will prescribe prednisone and azithromycin. Return precautions given, stable at time of discharge. - Vital Signs Vital signs: Temp Pulse Resp BP Pulse Ox 98.6 F 102 H 27 H 191/88 H 95 06/27/20 23:28 06/27/20 15:51 06/27/20 23:01 06/27/20 23:01 06/27/20 23:01 - Laboratory Result Diagrams: 06/27/20 19:16 06/27/20 19:16 Laboratory results interpreted by me: 06/27/20 06/27/20 19:16 19:16 WBC 11.7 H RDW 15.7 H Lymph % (Auto) 5.4 L [place] % (Auto) 1.9 L Absolute Neuts (auto) 10.8 H Seg Neutrophils % 92.3 H Glucose 166 H Total Bilirubin 1.5 H Alkaline Phosphatase 128 H Total Protein 8.4 H - Diagnostic Test Radiology reviewed: Image reviewed, Reports reviewed - EKG Interpretation by Me Additional EKG results interpreted by me: EKG is interpreted by me. Mild sinus tachycardia, rate 100. Narrow QRS, borderline QTC intervals. Nonspecific ST changes. No STEMI. Discharge - Discharge Clinical Impression: COPD (chronic obstructive pulmonary disease) with acute bronchitis Disposition: HOME, SELF-CARE Additional Instructions: Begin course of steroids and antibiotics. Use inhaler every 4 hours for shortness of breath. Please have close up with your primary care doctor peer return to the emergency department for any concerning worsening symptoms. Prescriptions: Azithromycin 250 mg PO ASDIR PRN 5 Days #6 tablet PRN Reason: Prednisone [Deltasone 20 mg Tablet] 2 tab PO DAILY 5 Days #10 tablet
[2020-06-27 23:28] VITALS: BP 191/88
--- NOTE | 2020-06-28 00:39 | EKG REPORT ---
SEVERITY:- ABNORMAL ECG - SINUS TACHYCARDIA PROBABLE LEFT ATRIAL ABNORMALITY NONSPECIFIC T ABNORMALITIES, INFERIOR LEADS BORDERLINE PROLONGED QT INTERVAL : Confirmed by: Lesley Shipman MD 28-Jun-2020 00:38:34
== END 2020-06-27 23:29 | disposition home or self-care (01) ==
LOC: ER 15:36
DX: J44.0 Chronic obstructive pulmonary disease with (acute) lower respiratory infection (principal); J20.9 Acute bronchitis, unspecified; R06.02 Shortness of breath; R05 Cough; R07.1 Chest pain on breathing; R00.0 Tachycardia, unspecified; I10 Essential (primary) hypertension; E11.9 Type 2 diabetes mellitus without complications; Z87.01 Personal history of pneumonia (recurrent)
CPT/HCPCS: 93005; 94640; 99285; 96374; 36415; 83690; 85025; 80053; 84484; 83880; 71045; 93010; J1885

== ENCOUNTER 2020-07-03 08:42 | Inpatient (IN) | payer SELFPAY ==
--- NOTE | 2020-07-03 09:01 | ER Document Report ---
ED General - General Chief Complaint: Chest Pain Stated Complaint: CHEST PAIN Time Seen by Provider: 07/03/20 09:00 TRAVEL OUTSIDE OF THE [place] IN LAST 30 DAYS: No - Related Data Allergies/Adverse Reactions: No Known Allergies Allergy (Verified 06/27/20 17:41) Past Medical History - Social History Family History: DM, Hyperlipidemia, Hypertension, Thyroid Disfunction - Past Medical History Cardiac Medical History: Reports: Hx Congestive Heart Failure, Hx Hypercholesterolemia, Hx Hypertension Denies: Hx Atrial Fibrillation, Hx Coronary Artery Disease, Hx DVT, Hx Heart Attack, Hx Pulmonary Embolism Pulmonary Medical History: Reports: Hx COPD, Hx Sleep Apnea Denies: Hx Asthma Neurological Medical History: Denies: Hx Seizures Endocrine Medical History: Reports: Hx Diabetes Mellitus Type 2, Hx Hyperthyroidism. Denies: Hx Diabetes Mellitus Type 1, Hx Hypothyroidism Renal/ Medical History: Denies: Hx Peritoneal Dialysis GI Medical History: Denies: Hx Cirrhosis, Hx Hepatitis Musculoskeletal Medical History: Reports Hx Arthritis, Reports Hx Gout Skin Medical History: Denies Hx Eczema, Denies Hx Psoriasis Psychiatric Medical History: Reports: Hx Anxiety, Hx Depression Infectious Medical History: Denies: Hx Hepatitis Past Surgical History: Reports: Hx Abdominal Surgery, Hx Cardiac Catheterization, Hx Orthopedic Surgery - Rt knee - Immunizations Hx Diphtheria, Pertussis, Tetanus Vaccination: Yes
[2020-07-03 09:19] LABS: ABSOLUTE BASOPHILS # (AUTO) 0.1 10^3/uL (0.0-0.2); ABSOLUTE EOSINOPHILS # (AUTO) 0.2 10^3/uL (0.0-0.6); ABSOLUTE LYMPHOCYTES (AUTO) 1.8 10^3/uL (0.5-4.7); ABSOLUTE MONOCYTES (AUTO) 1.1 10^3/uL (0.1-1.4); ABSOLUTE NEUT (AUTO) 8.8 10^3/uL (1.7-8.2); BASOPHILS % (AUTO) 0.6 % (0-2); EOSINOPHILS % (AUTO) 1.6 % (0-6); HEMATOCRIT 41.4 % (37.9-51.0); LYMPHOCYTES % (AUTO) 15.3 % (13-45); MEAN CORPUSCULAR HEMOGLOBIN 27.8 pg (27.0-33.4); MEAN CORPUSCULAR HGB CONC 33.8 g/dL (32.0-36.0); MEAN CORPUSCULAR VOLUME 82 fl (80-97); PLATELET COUNT 248 10^3/uL (150-450); RED BLOOD COUNT 5.04 10^6/uL (4.35-5.55); RED CELL DISTRIBUTION WIDTH 15.7 % (11.5-14.0); SEGMENTED NEUTROPHILS % (AUTO) 73.5 % (42-78); TOTAL CELLS COUNTED % (AUTO) 100 %
[2020-07-03] MEDS ORDERED: FUROSEMIDE INJ/PF 20 MG/2 ML SDV IV ONE (09:26)
[2020-07-03 09:35] LABS: ALBUMIN 3.8 g/dL (3.5-5.0); ALKALINE PHOSPHATASE 142 U/L (38-126); ANION GAP 8 (5-19); ASPARTATE AMINO TRANSFERASE 21 U/L (17-59); BILIRUBIN,TOTAL 0.8 mg/dL (0.2-1.3); BLOOD UREA NITROGEN 12 mg/dL (7-20); CALCIUM 9.2 mg/dL (8.4-10.2); CARBON DIOXIDE 30 mmol/L (22-30); CHLORIDE 98 mmol/L (98-107); CREATINE KINASE 128 U/L (55-170); GLUCOSE 150 mg/dL (75-110)
--- NOTE | 2020-07-03 09:35 | RADIOLOGY REPORT (SQ) ---
EXAM DESCRIPTION: CHEST SINGLE VIEW IMAGES COMPLETED DATE/TIME: 07/03/2020 9:15 am REASON FOR STUDY: bed 17 chest pain COMPARISON: 06/27/2020 EXAM PARAMETERS: NUMBER OF VIEWS: One view. TECHNIQUE: Single frontal radiographic view of the chest acquired. RADIATION DOSE: NA LIMITATIONS: None. FINDINGS: LUNGS AND PLEURA: Improved aeration of the lung bases. Persistent low lung volumes. MEDIASTINUM AND HILAR STRUCTURES: No masses. Contour normal. HEART AND VASCULAR STRUCTURES: Heart enlarged without failure. BONES: No acute findings. HARDWARE: None in the chest. OTHER: No other significant finding. IMPRESSION: Generally improved aeration of the lungs. TECHNICAL DOCUMENTATION: JOB ID: [id number] 2010 [employer]- All Rights Reserved Reading location - IP/workstation name: [email or web address]
[2020-07-03 09:47] LABS: CREATINE KINASE MB 0.85 ng/mL (<4.55); TROPONIN I 0.033 ng/mL
[2020-07-03 11:23] LABS: ARTERIAL BLOOD BASE EXCESS 4.1 mmol/L; ARTERIAL BLOOD FIO2 2L; ARTERIAL BLOOD H2CO3 1.27 mmol/L (1.05-1.35); ARTERIAL BLOOD HCO3 28.6 mmol/L (20-24); ARTERIAL BLOOD O2 SATURATION 96.2 % (94-98); ARTERIAL BLOOD PCO2 42.1 mmHg (35-45); ARTERIAL BLOOD PH 7.45 (7.35-7.45); ARTERIAL BLOOD PO2 79.2 mmHg (80-100); ARTERIAL BLOOD TOTAL CO2 29.9 mmol/L (23-27)
--- NOTE | 2020-07-03 11:47 | ER Document Report ---
ED General - General Chief Complaint: Chest Pain Stated Complaint: CHEST PAIN Time Seen by Provider: 07/03/20 09:00 TRAVEL OUTSIDE OF THE [place] IN LAST 30 DAYS: No - HPI Notes: Chief complaint: Breathing difficulty History of present illness: 45-year-old male with history of COPD,RAMON CHF and obstructive sleep apnea syndrome seen here by another provider 6 days ago with what was felt to be exacerbation of COPD and sent out on prednisone and azithromycin now returning reporting he feels like his breathing is actually getting worse. He denies sputum production. He denies fever. Says he is sore in his chest when he takes a deep breath or coughs but otherwise no chest pain. We note that this man has been treated for PE in the past but currently is not on anticoagulation. He currently does not have a primary care physician. - Related Data Allergies/Adverse Reactions: No Known Allergies Allergy (Verified 06/27/20 17:41) Past Medical History - General Information source: Patient, [facility] Records - Social History Smoking Status: Former Smoker Frequency of alcohol use: None Drug Abuse: None Lives with: Friend Family History: DM, Hyperlipidemia, Hypertension, Thyroid Disfunction - Past Medical History Cardiac Medical History: Reports: Hx Congestive Heart Failure, Hx Hypercholes terolemia, Hx Hypertension Denies: Hx Atrial Fibrillation, Hx Coronary Artery Disease, Hx DVT, Hx Heart Attack, Hx Pulmonary Embolism Pulmonary Medical History: Reports: Hx COPD, Hx Sleep Apnea Denies: Hx Asthma Neurological Medical History: Denies: Hx Seizures Endocrine Medical History: Reports: Hx Diabetes Mellitus Type 2, Hx Hyperthyroidism. Denies: Hx Diabetes Mellitus Type 1, Hx Hypothyroidism Renal/ Medical History: Denies: Hx Peritoneal Dialysis GI Medical History: Denies: Hx Cirrhosis, Hx Hepatitis Musculoskeletal Medical History: Reports Hx Arthritis, Reports Hx Gout Skin Medical History: Denies Hx Eczema, Denies Hx Psoriasis Psychiatric Medical History: Reports: Hx Anxiety, Hx Depression Infectious Medical History: Denies: Hx Hepatitis Past Surgical History: Reports: Hx Abdominal Surgery, Hx Cardiac Catheterization, Hx Orthopedic Surgery - Rt knee - Immunizations Hx Diphtheria, Pertussis, Tetanus Vaccination: Yes Review of Systems - Review of Systems Notes: Constitutional: Negative for fever. HENT: Negative for sore throat. Eyes: Negative for visual changes. Cardiovascular: As per HPI. Respiratory: As per HPI. Gastrointestinal: Negative for abdominal pain, vomiting or diarrhea. Genitourinary: Negative for dysuria. Musculoskeletal: Negative for back pain. Skin: Negative for rash. Neurological: Negative for headaches, weakness or numbness. 10 point ROS negative except as marked above and in HPI. Physical Exam - Vital signs Vitals: BP Pulse Ox 168/99 H 96 07/03/20 08:49 07/03/20 08:49 - Notes Notes: GENERAL: Obese male approximately stated age who appears somewhat anxious but otherwise in no acute distress. SKIN: Good turgor no rashes. HEAD: Normocephalic atraumatic. EYES: PERRLA. EOMI. Conjunctivae and sclerae clear. EARS: CANALS AND TMS CLEAR. NOSE: CLEAR. MOUTH: Moist mucosa. Good dentition. No stridor or edema. No drooling. NECK: Supple. No masses or thyromegaly. No adenopathy. Carotids 2+ without bruits. No JVD. BACK: Symmetrical without tenderness. CHEST: Respirations unlabored. Few faint wheezes bilaterally. HEART: Regular rhythm. No murmur gallop or rub. ABDOMEN: Soft nontender without masses, organomegaly or rebound. Bowel sounds normally active. No bruits. GENITALIA: Deferred. EXTREMITIES: 1+ bilateral pretibial. No calf tenderness. Cap refill less than 1.5 seconds. Dorsalis pedis and posterior tibial pulses 3+ and symmetrical. NEUROLOGICAL: GCS 15. Alert and oriented x3. Normal gait. Fluent speech. Cranial nerves II through XII intact. Sensorimotor and cerebellar normal. Normal tone. PSYCHIATRIC: Appropriate affect. Course - Re-evaluation Re-evalutation: 07/03/20 14:58 Patient was seen a week ago by another provider here for COPD exacerbation and sent out on azithromycin and oral steroids. He is finished the medicine up and came back in today telling us that he is having more problems with his breathing. His oxygenation on room air was good but he is very anxious and was hyperventilating. Also complains some chest pain. We note this man has a history of obstructive sleep apnea. He also has a past history of treatment for PE and is not currently on anticoagulation. He has sinus tachycardia here about 105. He got a room air blood gas which was good and did not show any CO2 retention. His initial chest x-ray to look negative to me was also read as negative by the radiologist. His D-dimer is elevated approximately 3.7. We got a chest CT for him and this shows some bibasilar infiltrates and small right- sided pleural effusion. He has had 2 - troponins here and his EKG was remarkable only for some sinus tachycardia. His BNP was normal. We will obtain a Covid swab. Blood cultures were requested. He is can receive some IV Zosyn and has gotten 2 nebulizer treatments here with DuoNeb. He is also getting IV Solu-Medrol. Case is discussed with Dr. Huntley patient will be admitted to the hospitalist service. - Vital Signs Vital signs: Temp Pulse Resp BP Pulse Ox 97.9 F 22 H 134/87 H 93 07/03/20 09:03 07/03/20 13:00 07/03/20 10:01 07/03/20 10:01 - Laboratory Result Diagrams: 07/03/20 09:00 07/03/20 09:00 Laboratory results interpreted by me: 07/03/20 07/03/20 07/03/20 09:00 09:00 09:00 WBC 12.0 H RDW 15.7 H Absolute Neuts (auto) 8.8 H D-Dimer 3.57 H ABG pO2 ABG HCO3 ABG Total CO2 Sodium 136.1 L Glucose 150 H Alkaline Phosphatase 142 H 07/03/20 11:06 WBC RDW Absolute Neuts (auto) D-Dimer ABG pO2 79.2 L ABG HCO3 28.6 H ABG Total CO2 29.9 H Sodium Glucose Alkaline Phosphatase - EKG Interpretation by Me Additional EKG results interpreted by me: 07/03/20 11:48 Twelve-lead EKG reviewed by me contemporaneously: 0853 hrs. Indication for study: Chest pain/dyspnea Rhythm: Sinus tachycardia Rate: 105 Intervals: Border Line QT prolongation with QTC 492 ms QRS axis: +[address]/T wave changes: None Comparison with prior tracing: Unchanged since prior tracing 06/27/2020 Interpretation: Sinus tachycardia and border line QT prolongation Discharge - Discharge Clinical Impression: Pneumonia, COPD exacerbation, Suspected COVID-19 infection Disposition: ADMITTED INPATIENT Admitting Provider: Yuko (Hospitalist) Unit Admitted: Telemetry
[2020-07-03] MEDS ORDERED: IPRATROPIUM/ALBUTEROL 0.5-2.5 MG/3 ML AMPUL NEB ONE ×2 (11:51→13:08)
[2020-07-03] MEDS ORDERED: ACETAMINOPHEN 325 MG TABLET PO ONE (11:51)
--- NOTE | 2020-07-03 11:59 | EKG REPORT ---
SEVERITY:- ABNORMAL ECG - SINUS TACHYCARDIA CONSIDER ANTEROSEPTAL INFARCT BORDERLINE PROLONGED QT INTERVAL : Confirmed by: Daniel Herndon MD 03-Jul-2020 11:58:09
[2020-07-03] MEDS ORDERED: LORAZEPAM INJ 2 MG/1 ML VIAL IV ONE ×2 (13:40→13:54)
--- NOTE | 2020-07-03 14:41 | RADIOLOGY REPORT (SQ) ---
EXAM DESCRIPTION: CTA CHEST IMAGES COMPLETED DATE/TIME: 07/03/2020 2:27 pm REASON FOR STUDY: dyspnea, pleuritic pain,past hx. PE ; r/o PE COMPARISON: None. TECHNIQUE: CT scan of the chest performed using helical scanning technique with dynamic intravenous contrast injection. Images reviewed with lung, soft tissue and bone windows. Reconstructed coronal and sagittal MPR images reviewed. Additional 3 dimensional post-processing performed to develop Maximal Intensity Projection images (IA P). All images stored on PACS. All CT scanners at this facility use dose modulation, iterative reconstruction, and/or weight based d osing when appropriate to reduce radiation dose to as low as reasonably achievable (ALARA). [facility]: Dose Right [facility]: CareDose [facility]: Dose Right [facility]: Teradose 4D [facility]: Semantics3 CONTRAST TYPE AND DOSE: contrast/concentration: Isovue 350.00 mmol/ml; Total Contrast Delivered: 90. 0 ml; Total Saline Delivered: 80.0 ml Contrast bolus optimized for the pulmonary arteries. Not diagnostic for the aorta. RENAL FUNCTION: GFR > 60. RADIATION DOSE: CT Rad equipment meets quality standard of care and radiation dose reduction techniq ues were employed. CTDIvol: 5.0 - 36.9 mGy. DLP: 1286 mGy-cm. . LIMITATIONS: None. FINDINGS: LUNGS AND PLEURA: Right pleural effusion. Bibasilar right middle lobe opacities greatest in the right lower lobe. AORTA AND GREAT VESSELS: No aneurysm. Contrast bolus not optimized for the aorta. HEART: No pericardial effusion. No significant coronary artery calcifications. PULMONARY ARTERIES: No emboli visualized in the main pulmonary arteries or the segmental branches. HILAR AND MEDIASTINAL STRUCTURES: No identified masses or abnormal nodes. HARDWARE: None in the chest. UPPER ABDOMEN: No significant findings. Limited exam. THYROID AND OTHER SOFT TISSUES: Generalize enlarged thyroid gland. BONES: No acute or significant finding. 3D MIPS: Confirm above findings. OTHER: No other significant finding. IMPRESSION: No pulmonary emboli. Bibasilar pneumonia right greater than left with right pleural eff usion. COMMENT: Quality ID # [id number]: Final reports with documentation of one or more dose reduction techniques (e.g., Automated exposure control, adjustment of the mA and/or kV according to patient size, use of iterative reconstruction technique) TECHNICAL DOCUMENTATION: JOB ID: [id number] [employer]- All Rights Reserved Reading location - IP/workstation name: [email or web address]
[2020-07-03] MEDS ORDERED: METHYLPREDNISOLONE INJ 125 MG/2 ML SDV IV ONE (14:51)
[2020-07-03] MEDS ORDERED: PIPERACILLIN/TAZOBACTAM 3.375 GM VIAL IV ONE (14:51)
[2020-07-03] MEDS ORDERED: ACETAMINOPHEN 325 MG TABLET PO PRN (16:15)
[2020-07-03] MEDS ORDERED: LEVALBUTEROL HCL NEB 1.25 MG/3 ML AMPUL NEB PRN (16:15)
[2020-07-03] MEDS ORDERED: GUAIFENESIN SYRP 200 MG/10 ML UDC PO PRN (16:15)
[2020-07-03] MEDS ORDERED: GLUCAGON,HUMAN RECOMB 1 MG INJ IM PRN (16:28)
[2020-07-03] MEDS ORDERED: DEXTROSE 40% GEL 15 GM TUBE PO PRN ×2 (16:28)
[2020-07-03] MEDS ORDERED: DEXTROSE 50%-WATER 25 GM/50 ML DISP.SYRIN IV PRN ×2 (16:28)
--- NOTE | 2020-07-03 16:48 | EKG REPORT ---
SEVERITY:- ABNORMAL ECG - SINUS TACHYCARDIA PROBABLE LEFT ATRIAL ABNORMALITY LEFT VENTRICULAR HYPERTROPHY BORDERLINE T ABNORMALITIES, INFERIOR LEADS BORDERLINE PROLONGED QT INTERVAL : Confirmed by: Daniel Herndon MD 03-Jul-2020 16:48:12
--- NOTE | 2020-07-03 16:51 | PDOC H&P ---
History of Present Illness Admission Date/PCP: 07/03/20 15:14 Patient complains of: Shortness of breath History of Present Illness: JOSÉ ANTONIO CRISOSTOMO is a 45 year old male who was discharged from [facility] approximately 3 weeks ago. I cared for this gentleman during the majority of his hospitalization. He was found to have grade 2/4 diastolic heart failure with normal ejection fraction. He most likely has sleep apnea as well as hypertension, diabetes and obesity. He was treated for an exacerbation of COPD and heart failure during his last admission. He reported to me upon direct questioning that he did follow-up at [facility]. He also stated that he filled his prescriptions when he left the hospital. Pharmacy confirms that there were no prescriptions filled. He in fact told me which medications he took and which did not work prior to coming to the hospital today. His ABG shows hypoxic respiratory failure. Chest x-ray showed cardiomegaly but the CT scan showed a retrocardiac infiltrate. It is not the multifocal infiltrate typically seen with Covid. He states that EMS did a rapid Covid test on him but this is not true either. The patient is going to be admitted to the hospital service. We will treat for pneumonia with an exacerbation of respiratory failure and underlying chronic heart failure. Past Medical History Cardiac Medical History: Reports: Congestive Heart Failure, Hyperlipidema, Hypertension Denies: Atrial Fibrillation, Coronary Artery Disease, DVT, Myocardial Infarction, Pulmonary Embolism Pulmonary Medical History: Reports: Chronic Obstructive Pulmonary Disease (COPD), Sleep Apnea Denies: Asthma Neurological Medical History: Denies: Seizures Endocrine Medical History: Reports: Diabetes Mellitus Type 2, Hyperthyroidism, Obesity Denies: Diabetes Mellitus Type 1, Hypothyroidism GI Medical History: Denies: Cirrhosis, Hepatitis Musculoskeltal Medical History: Reports: Arthritis, Gout Skin Medical History: Denies: Eczema, Psoriasis Psychiatric Medical History: Reports: Depression Hematology: Denies: Anemia, Bleeding Tendencies Past Surgical History Past Surgical History: Reports: Cardiac Catheterization, Orthopedic Surgery - Rt knee Social History Information Source: Patient, [facility] Records Lives with: Friend Smoking Status: Former Smoker Frequency of Alcohol Use: Occasional Hx Recreational Drug Use: No Drugs: None Hx Prescription Drug Abuse: No - Advance Directive Resuscitation Status: Full Code Family History Family History: DM, Hyperlipidemia, Hypertension, Thyroid Disfunction Parental Family History Reviewed: Yes Children Family History Reviewed: Yes Sibling(s) Family History Reviewed.: Yes Medication/Allergy Home Medications: No Home Medications 07/03/20 Allergies/Adverse Reactions: No Known Allergies Allergy (Verified 06/27/20 17:41) Review of Systems All systems: reviewed and no additional remarkable complaints except as stated Cardiovascular: PRESENT: chest pain Respiratory: PRESENT: cough, dyspnea Psychiatric: PRESENT: anxiety Physical Exam Vital Signs: Temp Pulse Resp BP Pulse Ox 97.9 F 22 H 134/87 H 93 07/03/20 09:03 07/03/20 13:00 07/03/20 10:01 07/03/20 10:01 Intake & Output 07/02/20 07/03/20 07/04/20 06:59 06:59 06:59 Weight 108.2 kg General appearance: PRESENT: cooperative, obese, severe distress, well-developed Head exam: PRESENT: atraumatic, normocephalic Eye exam: PRESENT: conjunctival injection, conjunctiva pink Ear exam: PRESENT: normal external ear exam. ABSENT: bleeding, drainage Mouth exam: PRESENT: moist, tongue midline Neck exam: ABSENT: carotid bruit, JVD, lymphadenopathy Respiratory exam: PRESENT: rhonchi - Left base, symmetrical, tachypnea. ABSENT: accessory muscle use, rales, wheezes Cardiovascular exam: PRESENT: RRR, +S1, +S2, tachycardia - Borderline tachycardia. ABSENT: bradycardia, diastolic murmur, irregular rhythm GI/Abdominal exam: PRESENT: normal bowel sounds, soft. ABSENT: distended, guarding, tenderness Rectal exam: PRESENT: deferred Gentrourinary exam: ABSENT: indwelling catheter Extremities exam: PRESENT: pedal edema - Trace Musculoskeletal exam: PRESENT: ambulatory, normal inspection. ABSENT: deformity, dislocation Neurological exam: PRESENT: alert, awake, oriented to person, oriented to place, oriented to time, oriented to situation, CN II-XII grossly intact. ABSENT: altered Psychiatric exam: PRESENT: anxious, appropriate affect. ABSENT: agitated Focused psych exam: ABSENT: delusional, paranoid, restlessness Skin exam: PRESENT: dry, normal color, warm. ABSENT: rash Results Laboratory Results: 07/03/20 09:00 07/03/20 09:00 07/03/20 07/03/20 07/03/20 09:00 09:00 09:50 WBC 12.0 H RBC 5.04 Hgb 14.0 Hct 41.4 MCV 82 MCH 27.8 MCHC 33.8 RDW 15.7 H Plt Count 248 Seg Neutrophils % 73.5 Carbonic Acid Cancelled HCO3/H2CO3 Ratio Cancelled ABG pH Cancelled ABG pCO2 Cancelled ABG pO2 Cancelled ABG HCO3 Cancelled ABG O2 Saturation Cancelled ABG Base Excess Cancelled FiO2 Cancelled Sodium 136.1 L Potassium 4.0 Chloride 98 Carbon Dioxide 30 Anion Gap 8 BUN 12 Creatinine 0.74 Est GFR ( Amer) > 60 Glucose 150 H Calcium 9.2 Total Bilirubin 0.8 AST 21 Alkaline Phosphatase 142 H Total Protein 8.0 Albumin 3.8 07/03/20 11:06 WBC RBC Hgb Hct MCV MCH MCHC RDW Plt Count Seg Neutrophils % Carbonic Acid 1.27 HCO3/H2CO3 Ratio 22:1 ABG pH 7.45 ABG pCO2 42.1 ABG pO2 79.2 L ABG HCO3 28.6 H ABG O2 Saturation 96.2 ABG Base Excess 4.1 FiO2 2L Sodium Potassium Chloride Carbon Dioxide Anion Gap BUN Creatinine Est GFR ( Amer) Glucose Calcium Total Bilirubin AST Alkaline Phosphatase Total Protein Albumin 07/03/20 07/03/20 07/03/20 09:00 09:00 09:00 Creatine Kinase 128 CK-MB (CK-2) 0.85 Troponin I 0.033 NT-Pro-B Natriuret Pep 104 07/03/20 12:05 Creatine Kinase CK-MB (CK-2) Troponin I 0.012 NT-Pro-B Natriuret Pep Impressions: Chest X-Ray 07/03/20 08:48 IMPRESSION: Generally improved aeration of the lungs. Chest/Abdomen CTA 07/03/20 12:21 IMPRESSION: No pulmonary emboli. Bibasilar pneumonia right greater than left with right pleural effusion. Assessment and Plan - Diagnosis (1) Acute and chronic respiratory failure with hypoxia Is this a current diagnosis for this admission?: Yes (2) Pneumonia Qualifiers: Pneumonia type: due to unspecified organism Laterality: left Lung location: lower lobe of lung Qualified Code(s): J18.9 - Pneumonia, unspecified organism Is this a current diagnosis for this admission?: Yes (3) Acute exacerbation of chronic obstructive pulmonary disease (COPD) Is this a current diagnosis for this admission?: Yes (4) Chronic diastolic heart failure Is this a current diagnosis for this admission?: Yes (5) Obstructive sleep apnea Is this a current diagnosis for this admission?: Yes (6) Hyperglycemia due to type 2 diabetes mellitus Qualifiers: Diabetes mellitus fdc insulin use: without fdc use Qualified Code(s): E11.65 - Type 2 diabetes mellitus with hyperglycemia Is this a current diagnosis for this admission?: Yes (7) Hyperthyroidism Is this a current diagnosis for this admission?: Yes (8) Hypertension Qualifiers: Hypertension type: essential hypertension Qualified Code(s): I10 - Essential (primary) hypertension Is this a current diagnosis for this admission?: Yes (9) Obesity (BMI 30-39.9) Is this a current diagnosis for this admission?: Yes (10) Noncompliance with medication regimen Is this a current diagnosis for this admission?: Yes - Plan Summary Summary: Pneumonia left lower lobe Acute and chronic respiratory failure with hypoxia Acute exacerbation of chronic obstructive pulmonary disease (COPD) Obstructive sleep apnea Chronic diastolic heart failure Obstructive sleep apnea Hyperglycemia due to type 2 diabetes mellitus Hyperthyroidism Hypertension Obesity (BMI 30-39.9) Noncompliance with medication regimen 07/03/2020 Respiratory failure-supplemental oxygen to maintain saturation 90 to 94% Exacerbation of COPD-likely secondary to pneumonia. Scheduled and as needed nebulizers including albuterol, ipratropium, budesonide and as needed levalbuterol Left follow-up [id number]. Ceftriaxone and azithromycin. With guaifenesin Chronic diastolic heart failure-cardiac diet and continue metoprolol, losartan, aspirin and furosemide. Monitor renal function and serum potassium Hyperglycemia due to diabetes mellitus type 2-diabetic diet, continue Metformin and utilize Accu-Cheks with sliding scale. Hypertension-continue medications as above Hyperlipidemia-continue statin therapy Hypothyroidism-start methimazole 5 mg every 8 hours Obesity-encourage diet and exercise Obstructive sleep apnea-CPAP at night - Time Time Spent with patient: 35 or more minutes Medications reviewed and adjusted accordingly: Yes Anticipated Discharge Disposition: Home, Self Care - At this time no coverage for home health Anticipated Discharge Timeframe: 3-4 days - Inpatient Certification Based on my medical assessment, after consideration of the patient's comorbidities, presenting symptoms, or acuity I expect that the services needed warrant INPATIENT care.: Yes I certify that my determination is in accordance with my understanding of Medicare's requirements for reasonable and necessary INPATIENT services [42 CFR 412.3e].: Yes Medical Necessity: Significant Comorbidiites Make Outpatient Treatment Too Risky, Need Close Monitoring Due to Risk of Patient Decompensation, Need For Continuous Telemetry Monitoring, Need for Nebulizer Therapy and Monitoring of Response, Need for IV Antibiotics Post Hospital Care: D/C or Transfer Summary
[2020-07-03] MEDS ORDERED: AZITHROMYCIN INJ 500 MG VIAL IV PRN (19:13)
[2020-07-03 19:21] LABS: INTERNATIONAL RATION (INR) 1.12; PROTHROMBIN TIME 14.6 SEC (11.4-15.4)
[2020-07-03 19:22] LABS: PARTIAL THROMBOPLASTIN TIME 36.8 SEC (23.5-35.8)
[2020-07-03] MEDS: IPRATROPIUM/ALBUTEROL 0.5-2.5 MG/3 ML AMPUL NEB SCH (20:56)
[2020-07-03] MEDS: BUDESONIDE NEB 0.5 MG/2 ML AMPUL NEB SCH (20:56)
[2020-07-03] MEDS ORDERED: CEFTRIAXONE 1 GM/D5W RTU 1 GM/50 ML RTUPB IV SCH (22:00)
[2020-07-03] MEDS: INSULIN REG, HUMAN 100 UNIT/ML 3 ML VIAL (PYX) SUBCUT SCH (22:26)
[2020-07-03] MEDS: ASPIRIN 81 MG TABLET, ENT COATED PO SCH (22:27)
[2020-07-03] MEDS: BUSPIRONE HCL 10 MG TABLET PO SCH (22:27)
[2020-07-03] MEDS: TRAZODONE HCL 50 MG TABLET PO SCH (22:27)
[2020-07-03] MEDS: GUAIFENESIN 600 MG TABLET.SA PO SCH (22:27)
[2020-07-03] MEDS: FAMOTIDINE 20 MG TABLET PO SCH (22:27)
[2020-07-03] MEDS: ATORVASTATIN CALCIUM 40 MG TABLET PO SCH (22:28)
[2020-07-03] MEDS ORDERED: AZITHROMYCIN INJ 500 MG VIAL IV ONE (23:03)
[2020-07-03] MEDS: METHIMAZOLE 5 MG TABLET PO SCH (23:21)
[2020-07-03] MEDS: AZITHROMYCIN 500 MG in DEXTROSE 5%-WATER 250 ML IV SCH (23:22)
[2020-07-04] MEDS: IPRATROPIUM/ALBUTEROL 0.5-2.5 MG/3 ML AMPUL NEB SCH ×4 (02:28→20:30)
[2020-07-04] MEDS: METHIMAZOLE 5 MG TABLET PO SCH ×3 (05:51→22:06)
[2020-07-04 06:23] LABS: HEMATOCRIT 41.1 % (37.9-51.0); HEMOGLOBIN 13.7 g/dL (13.5-17.0); MEAN CORPUSCULAR HEMOGLOBIN 27.8 pg (27.0-33.4); MEAN CORPUSCULAR HGB CONC 33.5 g/dL (32.0-36.0); MEAN CORPUSCULAR VOLUME 83 fl (80-97); PLATELET COUNT 272 10^3/uL (150-450); RED BLOOD COUNT 4.94 10^6/uL (4.35-5.55); RED CELL DISTRIBUTION WIDTH 15.7 % (11.5-14.0); WHITE BLOOD COUNT 20.9 10^3/uL (4.0-10.5)
[2020-07-04 06:53] LABS: ANION GAP 16 (5-19); BLOOD UREA NITROGEN 21 mg/dL (7-20); CALCIUM 8.8 mg/dL (8.4-10.2); CARBON DIOXIDE 23 mmol/L (22-30); CHLORIDE 97 mmol/L (98-107); GLUCOSE 201 mg/dL (75-110); POTASSIUM 4.7 mmol/L (3.6-5.0)
[2020-07-04 07:44] LABS: ABSOLUTE LYMPHOCYTES# (MANUAL) 0.8 10^3/uL (0.5-4.7); ABSOLUTE MONOCYTES # (MANUAL) 1.9 10^3/uL (0.1-1.4); BASOPHILS % (MANUAL) 0 % (0-2); EOSINOPHILS % (MANUAL) 0 % (0-6); LYMPHOCYTES % (MANUAL) 4 % (13-45); MONOCYTES % (MANUAL) 9 % (3-13); SEGMENTED NEUTROPHILS % (MAN) 87 % (42-78); TOTAL CELLS COUNTED 100
[2020-07-04 07:45] LABS: ANISOCYTOSIS SLIGHT; PLATELET COMMENT ADEQUATE; PLATELET LARGE PRESENT
[2020-07-04] MEDS: BUDESONIDE NEB 0.5 MG/2 ML AMPUL NEB SCH ×2 (07:56→20:30)
[2020-07-04] MEDS: INSULIN REG, HUMAN 100 UNIT/ML 3 ML VIAL (PYX) SUBCUT SCH ×4 (09:28→22:08)
--- NOTE | 2020-07-04 09:39 | PDOC PROGRESS REPORT ---
Subjective Date:: 07/04/20 Subjective:: Patient is complaining of right upper quadrant pain. His pneumonia is mostly in the right lower lobe. This does correlate. He breathes much easier with CPAP on. Reason For Visit: PNEUMONIA,2/4 DIASTOLIC HEART FAILURE,OBSTRUCTIVE Physical Exam Vital Signs: Temp Pulse Resp BP Pulse Ox 98.1 F 89 20 114/86 H 99 07/04/20 03:33 07/04/20 07:00 07/04/20 03:33 07/04/20 03:33 07/04/20 04:01 Intake & Output 07/03/20 07/04/20 07/05/20 06:59 06:59 06:59 Intake Total 550 Output Total 0 Balance 550 Weight 108.1 kg General appearance: PRESENT: cooperative, mild distress - Mild distress but improved, well-developed Head exam: PRESENT: atraumatic, normocephalic Ear exam: PRESENT: normal external ear exam. ABSENT: bleeding, drainage Mouth exam: PRESENT: dry mucosa, tongue midline Respiratory exam: PRESENT: rhonchi, symmetrical, unlabored. ABSENT: accessory muscle use, rales, tachypnea, wheezes Cardiovascular exam: PRESENT: RRR, +S1, +S2. ABSENT: bradycardia, diastolic murmur, irregular rhythm, systolic murmur, tachycardia GI/Abdominal exam: PRESENT: distended, soft, tenderness - Right costal margin, other - Protuberant abdomen. ABSENT: guarding Rectal exam: PRESENT: deferred Extremities exam: ABSENT: pedal edema Musculoskeletal exam: PRESENT: ambulatory. ABSENT: deformity, dislocation Neurological exam: PRESENT: alert, awake, oriented to person, oriented to place, oriented to time, oriented to situation, CN II-XII grossly intact. ABSENT: altered Psychiatric exam: PRESENT: appropriate affect. ABSENT: agitated, anxious Focused psych exam: ABSENT: delusional, paranoid, restlessness Skin exam: PRESENT: dry, warm. ABSENT: rash Results Laboratory Results: 07/04/20 05:40 07/04/20 05:40 07/03/20 07/03/20 07/03/20 09:00 09:50 11:06 WBC RBC Hgb Hct MCV MCH MCHC RDW Plt Count Seg Neutrophils % Carbonic Acid Cancelled 1.27 HCO3/H2CO3 Ratio Cancelled 22:1 ABG pH Cancelled 7.45 ABG pCO2 Cancelled 42.1 ABG pO2 Cancelled 79.2 L ABG HCO3 Cancelled 28.6 H ABG O2 Saturation Cancelled 96.2 ABG Base Excess Cancelled 4.1 FiO2 Cancelled 2L Sodium 136.1 L Potassium 4.0 Chloride 98 Carbon Dioxide 30 Anion Gap 8 BUN 12 Creatinine 0.74 Est GFR ( Amer) > 60 Glucose 150 H Calcium 9.2 Magnesium Total Bilirubin 0.8 AST 21 Alkaline Phosphatase 142 H Total Protein 8.0 Albumin 3.8 07/04/20 07/04/20 05:40 05:40 WBC 20.9 H RBC 4.94 Hgb 13.7 Hct 41.1 MCV 83 MCH 27.8 MCHC 33.5 RDW 15.7 H Plt Count 272 Seg Neutrophils % Not Reportable Carbonic Acid HCO3/H2CO3 Ratio ABG pH ABG pCO2 ABG pO2 ABG HCO3 ABG O2 Saturation ABG Base Excess FiO2 Sodium 136.3 L Potassium 4.7 Chloride 97 L Carbon Dioxide 23 Anion Gap 16 BUN 21 H Creatinine 0.89 Est GFR ( Amer) > 60 Glucose 201 H Calcium 8.8 Magnesium 1.5 L Total Bilirubin AST Alkaline Phosphatase Total Protein Albumin 07/03/20 07/03/20 07/03/20 09:00 09:00 09:00 Creatine Kinase 128 CK-MB (CK-2) 0.85 Troponin I 0.033 NT-Pro-B Natriuret Pep 104 07/03/20 12:05 Creatine Kinase CK-MB (CK-2) Troponin I 0.012 NT-Pro-B Natriuret Pep Impressions: Chest X-Ray 07/03/20 08:48 IMPRESSION: Generally improved aeration of the lungs. Chest/Abdomen CTA 07/03/20 12:21 IMPRESSION: No pulmonary emboli. Bibasilar pneumonia right greater than left with right pleural effusion. Assessment and Plan - Diagnosis (1) Acute and chronic respiratory failure with hypoxia Is this a current diagnosis for this admission?: Yes (2) Pneumonia Qualifiers: Pneumonia type: due to unspecified organism Laterality: left Lung location: lower lobe of lung Qualified Code(s): J18.9 - Pneumonia, unspecified organism Is this a current diagnosis for this admission?: Yes (3) Acute exacerbation of chronic obstructive pulmonary disease (COPD) Is this a current diagnosis for this admission?: Yes (4) Chronic diastolic heart failure Is this a current diagnosis for this admission?: Yes (5) Obstructive sleep apnea Is this a current diagnosis for this admission?: Yes (6) Hyperglycemia due to type 2 diabetes mellitus Qualifiers: Diabetes mellitus prison insulin use: without exterminator helper termite use Qualified Code(s): E11.65 - Type 2 diabetes mellitus with hyperglycemia Is this a current diagnosis for this admission?: Yes (7) Hyperthyroidism Is this a current diagnosis for this admission?: Yes (8) Hypertension Qualifiers: Hypertension type: essential hypertension Qualified Code(s): I10 - Essential (primary) hypertension Is this a current diagnosis for this admission?: Yes (9) Obesity (BMI 30-39.9) Is this a current diagnosis for this admission?: Yes (10) Noncompliance with medication regimen Is this a current diagnosis for this admission?: Yes - Plan Summary Summary: Pneumonia Right lower lobe Acute and chronic respiratory failure with hypoxia Acute exacerbation of chronic obstructive pulmonary disease (COPD) Obstructive sleep apnea Chronic diastolic heart failure Obstructive sleep apnea Hyperglycemia due to type 2 diabetes mellitus Hyperthyroidism Hypertension Obesity (BMI 30-39.9) Noncompliance with medication regimen 07/03/2020 Respiratory failure-supplemental oxygen to maintain saturation 90 to 94% Exacerbation of COPD-likely secondary to pneumonia. Scheduled and as needed nebulizers including albuterol, ipratropium, budesonide and as needed levalbuterol Left follow-up [id number]. Ceftriaxone and azithromycin. With guaifenesin Chronic diastolic heart failure-cardiac diet and continue metoprolol, losartan, aspirin and furosemide. Monitor renal function and serum potassium Hyperglycemia due to diabetes mellitus type 2-diabetic diet, continue Metformin and utilize Accu-Cheks with sliding scale. Hypertension-continue medications as above Hyperlipidemia-continue statin therapy Hypothyroidism-start methimazole 5 mg every 8 hours Obesity-encourage diet and exercise Obstructive sleep apnea-CPAP at night 07/04/2020 Doing well on CPAP. Will try nasal cannula while eating. Right upper quadrant and costal margin pain is consistent with a right lower lobe portion of his pneumonia. I will continue the azithromycin but change the ceftriaxone to Zosyn for better coverage of his pneumonia. Continue combination of CPAP and nasal cannula with a goal of weaning to room air. Pleural effusion on chest x-ray likely parapneumonic but difficult to say. We are continuing furosemide with his history of chronic diastolic heart failure. Continue Accu-Cheks and sliding scale. The patient is also on Metformin. Accu- Cheks are acceptable at this time. Decadron has been added to the nebulizers which include albuterol, ipratropium and budesonide. I had a long discussion with the patient about his thyroid. He actually states that while he was in [place] they did an "x-ray "and said there were a lot of "cysts "around his thyroid. Nothing was ever followed up on according to the patient. Once his infection is improved we can consider repeating a thyroid ultrasound. I explained that we do not have endocrinology available in the hospital but we certainly could try to set up an appointment as an outpatient. Blood pressure and pulse are acceptable and we will continue his current regimen. His D-dimer is elevated. I have added C-reactive protein, LDH and ferritin lev els. He does not overtly appear to be at risk for Covid pneumonia. If these studies do not suggest Covid then we will downgrade him from third floor. - Time Time Spent with patient: 15-24 minutes Medications reviewed and adjusted accordingly: Yes Anticipated Discharge Disposition: Home, Self Care Anticipated Discharge Timeframe: 96 hrs
[2020-07-04] MEDS ORDERED: DEXAMETHASONE SOD PHOS INJ 10 MG/1 ML VIAL IV SCH (10:00)
[2020-07-04] MEDS ORDERED: SERTRALINE HCL 50 MG TABLET PO SCH (10:00)
--- NOTE | 2020-07-04 10:02 | RADIOLOGY REPORT (SQ) ---
EXAM DESCRIPTION: CHEST SINGLE VIEW IMAGES COMPLETED DATE/TIME: 07/04/2020 9:52 am REASON FOR STUDY: Bilateral pneumonia COMPARISON: 07/03/2020 EXAM PARAMETERS: NUMBER OF VIEWS: One view. TECHNIQUE: Single frontal radiographic view of the chest acquired. RADIATION DOSE: NA LIMITATIONS: None. FINDINGS: LUNGS AND PLEURA: Increasing right effusion with parenchymal opacity at the right base. L eft lung is clear. MEDIASTINUM AND HILAR STRUCTURES: No masses. Contour normal. HEART AND VASCULAR STRUCTURES: Heart upper normal. No overt failure. BONES: No acute findings. HARDWARE: None in the chest. OTHER: No other significant finding. IMPRESSION: Increasing right pleural effusion and right basilar opacity. TECHNICAL DOCUMENTATION: JOB ID: [id number] 2010 [employer]- All Rights Reserved Reading location - IP/workstation name: [email or web address]
[2020-07-04] MEDS: MAGNESIUM OXIDE 400 MG TABLET PO SCH ×2 (11:17→17:41)
[2020-07-04] MEDS: FUROSEMIDE 40 MG TABLET PO SCH (11:18)
[2020-07-04] MEDS: METOPROLOL SUCCINATE 50 MG TAB.SR.24H PO SCH (11:18)
[2020-07-04] MEDS: METFORMIN HCL 500 MG TABLET PO SCH ×2 (11:18→17:41)
[2020-07-04] MEDS: LOSARTAN POTASSIUM 50 MG TABLET PO SCH (11:18)
[2020-07-04] MEDS: GUAIFENESIN 600 MG TABLET.SA PO SCH ×2 (11:19→22:08)
[2020-07-04] MEDS: ASCORBIC ACID 500 MG TABLET PO SCH ×2 (11:19→17:41)
[2020-07-04] MEDS: ENOXAPARIN SODIUM INJ 40 MG/0.4 ML DISP.SYRIN SUBCUT SCH (11:19)
[2020-07-04] MEDS: ZINC SULFATE 220 MG CAPSULE PO SCH (11:19)
[2020-07-04] MEDS: BUSPIRONE HCL 10 MG TABLET PO SCH ×2 (11:19→22:07)
[2020-07-04] MEDS: FAMOTIDINE 20 MG TABLET PO SCH ×2 (11:23→22:08)
[2020-07-04] MEDS: DEXAMETHASONE SOD PHOSPHATE INJ 4 MG/1 ML VIAL IV SCH (11:27)
[2020-07-04 12:30] LABS: C-REACTIVE PROTEIN 185.7 mg/L (<10.0)
[2020-07-04] MEDS: PIPERACILLIN SODIUM/TAZOBACTAM 3.375 GM in NORMAL SALINE 100 ML IV SCH ×2 (13:28→17:41)
[2020-07-04] MEDS: TRAZODONE HCL 50 MG TABLET PO SCH (22:08)
[2020-07-04] MEDS: ATORVASTATIN CALCIUM 40 MG TABLET PO SCH (22:08)
[2020-07-04] MEDS: ASPIRIN 81 MG TABLET, ENT COATED PO SCH (22:08)
[2020-07-04] MEDS: AZITHROMYCIN 500 MG in DEXTROSE 5%-WATER 250 ML IV SCH (22:09)
[2020-07-05] MEDS: PIPERACILLIN SODIUM/TAZOBACTAM 3.375 GM in NORMAL SALINE 100 ML IV SCH ×4 (00:22→17:38)
--- NOTE | 2020-07-05 00:36 | RADIOLOGY REPORT (SQ) ---
Thyroid ultrasound: 07/04/2020 11:33 PM INTAKE CLERK HISTORY: 45-year-old patient with hyperthyroidism. COMPARISON: CT the chest from 06/25/2020 TECHNIQUE: Multiple grayscale and color Doppler images of the thyroid gland were obtained. FINDINGS: The right thyroid lobe measures 5.4 x 2.1 x 1.8 cm. The left thyroid lobe measures 4.4 x 2.8 x 2.9 cm. The isthmus measures up to 2-3 mm in AP dimension. The thyroid gland demonstrates a heterogeneous background parenchymal pattern. There is nodularity within the thyroid gland. No abnormal vascularity is seen within the thyroid gland. Size: 3.2 x 2.0 x 2.6 cm Location: Interpolar left thyroid lobe. Size: 2.1 x 1.8 x 2.4 cm Location: Inferior right thyroid lobe. Composition: Solid (2) Echogenicity: Hyperechoic to isoechoic (1) Shape: Wider than tall (0) Margins: Smooth (0) Echogenic foci: None (0) ACR TI-RADS 2017 total points: 3 ACR TI-RADS risk category: TR3 (3 points) FNA if 2.5 cm; Follow if 1.5 cm at 1, 3, and 5 y IMPRESSION: The thyroid gland is enlarged with heterogeneous, solid nodules with the left thyroid lobe measuring arterially for fine-needle aspiration. The right thyroid lobe also likely meets criteria by 1 mm.
[2020-07-05] MEDS: IPRATROPIUM/ALBUTEROL 0.5-2.5 MG/3 ML AMPUL NEB SCH ×4 (01:16→21:00)
[2020-07-05] MEDS: METHIMAZOLE 5 MG TABLET PO SCH ×3 (05:42→21:15)
[2020-07-05] MEDS: KETOROLAC TROMETHAMINE INJ/PF 30 MG/1 ML SDV IV PRN ×2 (05:42→21:16)
[2020-07-05] MEDS: LORAZEPAM 1 MG TABLET PO PRN ×2 (05:42→21:16)
[2020-07-05 06:40] LABS: HEMATOCRIT 39.2 % (37.9-51.0); MEAN CORPUSCULAR HEMOGLOBIN 27.6 pg (27.0-33.4); MEAN CORPUSCULAR HGB CONC 33.2 g/dL (32.0-36.0); MEAN CORPUSCULAR VOLUME 83 fl (80-97); PLATELET COUNT 283 10^3/uL (150-450); RED BLOOD COUNT 4.72 10^6/uL (4.35-5.55); RED CELL DISTRIBUTION WIDTH 15.8 % (11.5-14.0); WHITE BLOOD COUNT 21.3 10^3/uL (4.0-10.5)
[2020-07-05 07:04] LABS: BLOOD UREA NITROGEN 27 mg/dL (7-20); CARBON DIOXIDE 27 mmol/L (22-30); CHLORIDE 100 mmol/L (98-107)
[2020-07-05 07:06] LABS: ANION GAP 12 (5-19); CALCIUM 8.5 mg/dL (8.4-10.2); GLUCOSE 115 mg/dL (75-110); POTASSIUM 4.5 mmol/L (3.6-5.0)
[2020-07-05] MEDS: BUDESONIDE NEB 0.5 MG/2 ML AMPUL NEB SCH ×2 (07:48→21:00)
[2020-07-05 07:54] LABS: ABSOLUTE LYMPHOCYTES# (MANUAL) 2.1 10^3/uL (0.5-4.7); ABSOLUTE MONOCYTES # (MANUAL) 2.1 10^3/uL (0.1-1.4); ANISOCYTOSIS SLIGHT; BASOPHILS % (MANUAL) 0 % (0-2); EOSINOPHILS % (MANUAL) 0 % (0-6); LYMPHOCYTES % (MANUAL) 10 % (13-45); MONOCYTES % (MANUAL) 10 % (3-13); PLATELET COMMENT ADEQUATE; PLATELET LARGE PRESENT; POLYCHROMASIA SLIGHT; SEGMENTED NEUTROPHILS % (MAN) 80 % (42-78); TOTAL CELLS COUNTED 100
[2020-07-05] MEDS: INSULIN REG, HUMAN 100 UNIT/ML 3 ML VIAL (PYX) SUBCUT SCH ×4 (07:54→22:23)
[2020-07-05] MEDS: MAGNESIUM OXIDE 400 MG TABLET PO SCH ×3 (08:33→17:37)
[2020-07-05] MEDS: METFORMIN HCL 500 MG TABLET PO SCH ×2 (08:33→16:54)
[2020-07-05] MEDS: ASCORBIC ACID 500 MG TABLET PO SCH ×2 (09:44→17:38)
[2020-07-05] MEDS: FAMOTIDINE 20 MG TABLET PO SCH ×2 (09:44→21:16)
[2020-07-05] MEDS: GUAIFENESIN 600 MG TABLET.SA PO SCH ×2 (09:44→21:16)
[2020-07-05] MEDS: ZINC SULFATE 220 MG CAPSULE PO SCH (09:44)
[2020-07-05] MEDS: METOPROLOL SUCCINATE 50 MG TAB.SR.24H PO SCH (09:45)
[2020-07-05] MEDS: FUROSEMIDE 40 MG TABLET PO SCH (09:45)
[2020-07-05] MEDS: BUSPIRONE HCL 10 MG TABLET PO SCH ×2 (09:45→21:15)
[2020-07-05] MEDS: LOSARTAN POTASSIUM 50 MG TABLET PO SCH (09:45)
[2020-07-05] MEDS: DEXAMETHASONE SOD PHOSPHATE INJ 4 MG/1 ML VIAL IV SCH (09:45)
[2020-07-05] MEDS: ENOXAPARIN SODIUM INJ 40 MG/0.4 ML DISP.SYRIN SUBCUT SCH (09:46)
--- NOTE | 2020-07-05 11:05 | PDOC PROGRESS REPORT ---
Subjective Date:: 07/05/20 Subjective:: Patient still on CPAP. Still with pleuritic right-sided chest pain especially a nterior axillary line. Reason For Visit: PNEUMONIA,2/4 DIASTOLIC HEART FAILURE,OBSTRUCTIVE Physical Exam Vital Signs: Temp Pulse Resp BP Pulse Ox 98.1 F 87 16 137/85 H 93 07/05/20 07:43 07/05/20 07:48 07/05/20 07:48 07/05/20 07:43 07/05/20 07:48 Intake & Output 07/04/20 07/05/20 07/06/20 06:59 06:59 06:59 Intake Total 550 870 Output Total 0 1700 Balance 550 -830 Weight 108.1 kg 108.3 kg General appearance: PRESENT: cooperative, mild distress, obese Head exam: PRESENT: atraumatic, normocephalic Mouth exam: PRESENT: other - CPAP mask in place Respiratory exam: PRESENT: rhonchi - Right base, symmetrical, tachypnea. ABSENT: rales, wheezes Cardiovascular exam: PRESENT: RRR, +S1, +S2. ABSENT: bradycardia, diastolic murmur, irregular rhythm, systolic murmur, tachycardia GI/Abdominal exam: PRESENT: normal bowel sounds, soft, other - Protuberant abdomen. ABSENT: tenderness Rectal exam: PRESENT: deferred Gentrourinary exam: ABSENT: indwelling catheter Extremities exam: PRESENT: pedal edema Musculoskeletal exam: PRESENT: ambulatory. ABSENT: deformity, dislocation Neurological exam: PRESENT: alert, awake, oriented to person, oriented to place, oriented to time, oriented to situation, CN II-XII grossly intact. ABSENT: altered Psychiatric exam: PRESENT: anxious. ABSENT: agitated Focused psych exam: ABSENT: delusional, paranoid, restlessness Skin exam: PRESENT: dry, normal color, warm. ABSENT: rash Results Laboratory Results: 07/05/20 05:24 07/05/20 05:24 07/04/20 07/05/20 07/05/20 11:33 05:24 05:24 WBC 21.3 H RBC 4.72 Hgb 13.0 L Hct 39.2 MCV 83 MCH 27.6 MCHC 33.2 RDW 15.8 H Plt Count 283 Seg Neutrophils % Not Reportable Sodium 138.7 Potassium 4.5 Chloride 100 Carbon Dioxide 27 Anion Gap 12 BUN 27 H Creatinine 0.85 Est GFR ( Amer) > 60 Glucose 115 H Calcium 8.5 Magnesium 1.8 Ferritin 231.00 C-Reactive Protein 185.7 H 07/03/20 07/03/20 07/03/20 09:00 09:00 09:00 Creatine Kinase 128 CK-MB (CK-2) 0.85 Troponin I 0.033 NT-Pro-B Natriuret Pep 104 07/03/20 12:05 Creatine Kinase CK-MB (CK-2) Troponin I 0.012 NT-Pro-B Natriuret Pep Impressions: Chest/Abdomen CTA 07/03/20 12:21 IMPRESSION: No pulmonary emboli. Bibasilar pneumonia right greater than left with right pleural effusion. Chest X-Ray 07/04/20 00:00 IMPRESSION: Increasing right pleural effusion and right basilar opacity. Thyroid Ultrasound 07/04/20 00:00 IMPRESSION: The thyroid gland is enlarged with heterogeneous, solid nodules with the left thyroid lobe measuring arterially for fine-needle aspiration. The right thyroid lobe also likely meets criteria by 1 mm. Assessment and Plan - Diagnosis (1) Acute and chronic respiratory failure with hypoxia Is this a current diagnosis for this admission?: Yes (2) Pneumonia Qualifiers: Pneumonia type: due to unspecified organism Laterality: left Lung location: lower lobe of lung Qualified Code(s): J18.9 - Pneumonia, unspecified organism Is this a current diagnosis for this admission?: Yes (3) Acute exacerbation of chronic obstructive pulmonary disease (COPD) Is this a current diagnosis for this admission?: Yes (4) Chronic diastolic heart failure Is this a current diagnosis for this admission?: Yes (5) Obstructive sleep apnea Is this a current diagnosis for this admission?: Yes (6) Hyperglycemia due to type 2 diabetes mellitus Qualifiers: Diabetes mellitus long term care social worker insulin use: without long term care social worker use Qualified Code(s): E11.65 - Type 2 diabetes mellitus with hyperglycemia Is this a current diagnosis for this admission?: Yes (7) Hyperthyroidism Is this a current diagnosis for this admission?: Yes (8) Hypertension Qualifiers: Hypertension type: essential hypertension Qualified Code(s): I10 - Essential (primary) hypertension Is this a current diagnosis for this admission?: Yes (9) Obesity (BMI 30-39.9) Is this a current diagnosis for this admission?: Yes (10) Noncompliance with medication regimen Is this a current diagnosis for this admission?: Yes - Plan Summary Summary: Pneumonia Right lower lobe Acute and chronic respiratory failure with hypoxia Acute exacerbation of chronic obstructive pulmonary disease (COPD) Obstructive sleep apnea Chronic diastolic heart failure Obstructive sleep apnea Hyperglycemia due to type 2 diabetes mellitus Hyperthyroidism Hypertension Obesity (BMI 30-39.9) Noncompliance with medication regimen 07/03/2020 Respiratory failure-supplemental oxygen to maintain saturation 90 to 94% Exacerbation of COPD-likely secondary to pneumonia. Scheduled and as needed nebulizers including albuterol, ipratropium, budesonide and as needed levalbuterol Left follow-up [id number]-[id number]. Ceftriaxone and azithromycin. With guaifenesin Chronic diastolic heart failure-cardiac diet and continue metoprolol, losartan, aspirin and furosemide. Monitor renal function and serum potassium Hyperglycemia due to diabetes mellitus type 2-diabetic diet, continue Metformin and utilize Accu-Cheks with sliding scale. Hypertension-continue medications as above Hyperlipidemia-continue statin therapy Hypothyroidism-start methimazole 5 mg every 8 hours Obesity-encourage diet and exercise Obstructive sleep apnea-CPAP at night 07/04/2020 Doing well on CPAP. Will try nasal cannula while eating. Right upper quadrant and costal margin pain is consistent with a right lower lobe portion of his pneumonia. I will continue the azithromycin but change the ceftriaxone to Zosyn for better coverage of his pneumonia. Continue combination of CPAP and nasal cannula with a goal of weaning to room air. Pleural effusion on chest x-ray likely parapneumonic but difficult to say. We are continuing furosemide with his history of chronic diastolic heart failure. Continue Accu-Cheks and sliding scale. The patient is also on Metformin. Accu- Cheks are acceptable at this time. Decadron has been added to the nebulizers which include albuterol, ipratropium and budesonide. I had a long discussion with the patient about his thyroid. He actually states that while he was in [place] they did an "x-ray "and said there were a lot of "cysts "around his thyroid. Nothing was ever followed up on according to the patient. Once his infection is improved we can consider repeating a thyroid ultrasound. I explained that we do not have endocrinology available in the hosp ital but we certainly could try to set up an appointment as an outpatient. Blood pressure and pulse are acceptable and we will continue his current regimen. His D-dimer is elevated. I have added C-reactive protein, LDH and ferritin levels. He does not overtly appear to be at risk for Covid pneumonia. If these studies do not suggest Covid then we will downgrade him from third floor. 07/05/2020 Add anti-inflammatories for pleuritic pain from right lower lobe pneumonia Thyroid ultrasound reveals nodules. Will order needle biopsy. Continue antibiotics for pneumonia Continue Metformin, Accu-Cheks and sliding scale with diabetic diet Continue steroids and initiate taper based on patient response D-dimer is elevated but CT angiogram was negative. No suggestion of DVT in legs. Did not test for Covid as very low suspicion. - Time Time Spent with patient: Less than 15 minutes Medications reviewed and adjusted accordingly: Yes Anticipated Discharge Disposition: Home, Self Care Anticipated Discharge Timeframe: within 72 hours
[2020-07-05] MEDS: IBUPROFEN 600 MG TABLET PO SCH (17:37)
[2020-07-05] MEDS: TRAZODONE HCL 50 MG TABLET PO SCH (21:15)
[2020-07-05] MEDS: AZITHROMYCIN 500 MG in DEXTROSE 5%-WATER 250 ML IV SCH (21:16)
[2020-07-05] MEDS: ATORVASTATIN CALCIUM 40 MG TABLET PO SCH (21:16)
[2020-07-05] MEDS: ASPIRIN 81 MG TABLET, ENT COATED PO SCH (21:16)
[2020-07-06] MEDS: PIPERACILLIN SODIUM/TAZOBACTAM 3.375 GM in NORMAL SALINE 100 ML IV SCH ×4 (00:29→17:05)
[2020-07-06] MEDS: IPRATROPIUM/ALBUTEROL 0.5-2.5 MG/3 ML AMPUL NEB SCH ×4 (02:14→20:37)
[2020-07-06] MEDS: METHIMAZOLE 5 MG TABLET PO SCH ×2 (05:26→13:41)
[2020-07-06] MEDS: BUDESONIDE NEB 0.5 MG/2 ML AMPUL NEB SCH ×2 (07:45→20:37)
[2020-07-06] MEDS: INSULIN REG, HUMAN 100 UNIT/ML 3 ML VIAL (PYX) SUBCUT SCH ×4 (08:07→21:44)
[2020-07-06] MEDS: MAGNESIUM OXIDE 400 MG TABLET PO SCH ×3 (08:09→17:06)
[2020-07-06] MEDS: METFORMIN HCL 500 MG TABLET PO SCH ×2 (08:09→17:06)
[2020-07-06] MEDS: IBUPROFEN 600 MG TABLET PO SCH ×3 (08:09→17:06)
[2020-07-06] MEDS: ENOXAPARIN SODIUM INJ 40 MG/0.4 ML DISP.SYRIN SUBCUT SCH (09:12)
[2020-07-06] MEDS: GUAIFENESIN 600 MG TABLET.SA PO SCH ×2 (09:13→21:44)
[2020-07-06] MEDS: FAMOTIDINE 20 MG TABLET PO SCH ×2 (09:13→21:44)
[2020-07-06] MEDS: ASCORBIC ACID 500 MG TABLET PO SCH ×2 (09:13→17:06)
[2020-07-06] MEDS: DEXAMETHASONE SOD PHOSPHATE INJ 4 MG/1 ML VIAL IV SCH (09:13)
[2020-07-06] MEDS: FUROSEMIDE 40 MG TABLET PO SCH (09:13)
[2020-07-06] MEDS: BUSPIRONE HCL 10 MG TABLET PO SCH ×2 (09:13→21:44)
[2020-07-06] MEDS: ZINC SULFATE 220 MG CAPSULE PO SCH (09:13)
[2020-07-06] MEDS: LOSARTAN POTASSIUM 50 MG TABLET PO SCH (09:13)
[2020-07-06] MEDS: METOPROLOL SUCCINATE 50 MG TAB.SR.24H PO SCH (09:14)
[2020-07-06 14:21] LABS: HEMATOCRIT 40.4 % (37.9-51.0); HEMOGLOBIN 13.2 g/dL (13.5-17.0); MEAN CORPUSCULAR HEMOGLOBIN 27.4 pg (27.0-33.4); MEAN CORPUSCULAR HGB CONC 32.8 g/dL (32.0-36.0); MEAN CORPUSCULAR VOLUME 83 fl (80-97); PLATELET COUNT 317 10^3/uL (150-450); RED BLOOD COUNT 4.84 10^6/uL (4.35-5.55); RED CELL DISTRIBUTION WIDTH 15.7 % (11.5-14.0); WHITE BLOOD COUNT 15.6 10^3/uL (4.0-10.5)
--- NOTE | 2020-07-06 14:27 | CDI QUERY ---
CDI Query CDI Review: We are seeking further clarification of documentation to reflect the severity of illness of your patient. Per Progress Notes: Pneumonia Qualifiers: Pneumonia type: due to unspecified organism Laterality: left Lung location: lower lobe of lung Qualified Code(s): J18.9 - Pneumonia, unspecified 07/03/2020 Respiratory failure-supplemental oxygen to maintain saturation 90 to 94% Exacerbation of COPD-likely secondary to pneumonia. Scheduled and as needed nebulizers including albuterol, ipratropium, budesonide and as needed levalbuterol Left follow-up pvwblwolb-yxylzyzxk-jkcnmond. Ceftriaxone and azithromycin. With guaifenesin 07/05/2020 Add anti-inflammatories for pleuritic pain from right lower lobe pneumonia Continue antibiotics for pneumonia D-dimer is elevated but CT angiogram was negative. No suggestion of DVT in legs. Did not test for Covid as very low suspicion. Based on your medical judgment, can you further clarify in the Progress Notes ( and carry through to the Discharge Summary) the most likely or suspected underlying cause of the pneumonia: Gram negative Staph Pseudomonas Pneumococcus Aspiration Viral Other cause (please specify) None of the above / Not applicable Thank you for your consideration. JERSEY TsangN RN Clinical Sales And Operations Trainee Physician Advisor [email or web address]
[2020-07-06 14:59] LABS: FREE T4 (FREE THYROXINE) 1.52 ng/dL (0.78-2.19)
[2020-07-06 15:13] LABS: THYROID STIMULATING HORMONE 0.06 uIU/mL (0.47-4.68)
--- NOTE | 2020-07-06 18:30 | PDOC PROGRESS REPORT ---
Subjective Date:: 07/06/20 Subjective:: NAEO Reason For Visit: PNEUMONIA,2/4 DIASTOLIC HEART FAILURE,OBSTRUCTIVE Physical Exam Vital Signs: Temp Pulse Resp BP Pulse Ox 97.8 F 89 16 149/83 H 96 07/06/20 16:13 07/06/20 16:13 07/06/20 16:13 07/06/20 16:13 07/06/20 16:13 Intake & Output 07/05/20 07/06/20 07/07/20 06:59 06:59 06:59 Intake Total 870 1860 2577 Output Total 1700 Balance -830 1860 2577 Weight 108.3 kg 110 kg 110 kg General appearance: PRESENT: no acute distress, cooperative Eye exam: ABSENT: conjunctival injection Mouth exam: PRESENT: moist Throat exam: ABSENT: post pharyngeal erythema Neck exam: ABSENT: JVD Respiratory exam: PRESENT: clear to auscultation nitin, unlabored Cardiovascular exam: PRESENT: RRR GI/Abdominal exam: PRESENT: normal bowel sounds, soft. ABSENT: tenderness Extremities exam: ABSENT: pedal edema Musculoskeletal exam: PRESENT: ambulatory Neurological exam: PRESENT: alert, awake, oriented to person, oriented to place, oriented to time, oriented to situation Psychiatric exam: PRESENT: appropriate affect Skin exam: ABSENT: rash Results Laboratory Results: 07/06/20 13:57 07/05/20 05:24 07/06/20 07/06/20 07/06/20 13:57 13:57 13:57 WBC 15.6 H RBC 4.84 Hgb 13.2 L Hct 40.4 MCV 83 MCH 27.4 MCHC 32.8 RDW 15.7 H Plt Count 317 TSH 0.06 L Free T4 1.52 Free T3 pg/mL 3.25 07/03/20 07/03/20 07/03/20 09:00 09:00 09:00 Creatine Kinase 128 CK-MB (CK-2) 0.85 Troponin I 0.033 NT-Pro-B Natriuret Pep 104 07/03/20 12:05 Creatine Kinase CK-MB (CK-2) Troponin I 0.012 NT-Pro-B Natriuret Pep Impressions: Chest/Abdomen CTA 07/03/20 12:21 IMPRESSION: No pulmonary emboli. Bibasilar pneumonia right greater than left with right pleural effusion. Chest X-Ray 07/04/20 00:00 IMPRESSION: Increasing right pleural effusion and right basilar opacity. Thyroid Ultrasound 07/04/20 00:00 IMPRESSION: The thyroid gland is enlarged with heterogeneous, solid nodules with the left thyroid lobe measuring arterially for fine-needle aspiration. The right thyroid lobe also likely meets criteria by 1 mm. Assessment and Plan - Diagnosis (1) Subclinical hyperthyroidism Is this a current diagnosis for this admission?: Yes (2) Acute respiratory failure with hypoxia Is this a current diagnosis for this admission?: Yes (3) Noncompliance with medication regimen Is this a current diagnosis for this admission?: Yes (4) Acute exacerbation of chronic obstructive pulmonary disease (COPD) Is this a current diagnosis for this admission?: Yes (5) Chronic diastolic heart failure Is this a current diagnosis for this admission?: Yes (6) Hyperglycemia due to type 2 diabetes mellitus Qualifiers: Diabetes mellitus alf insulin use: without alf use Qualified Code(s): E11.65 - Type 2 diabetes mellitus with hyperglycemia Is this a current diagnosis for this admission?: Yes (7) Morbid obesity with BMI of 40.0-44.9, adult Is this a current diagnosis for this admission?: Yes (8) Obstructive sleep apnea of adult Is this a current diagnosis for this admission?: Yes - Plan Summary Summary: JOSÉ ANTONIO CRISOSTOMO is a 45 year old homeless/uninsured male with chronic, grade 2/4 diastolic congestive heart failure with normal ejection fraction, morbid obesity, hypertension, hyperlipidemia, DM2, COPD who presented to the ED with acute hypoxic respiratory failure due to RLL pneumonia. Subclinical Hyperthyroidism: TSH 0.06, FT4 and FT3 normal. He has no overt clinical manifestations of hyperthyroidism. 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 This is unlikely to be malignant, but out of an abundance of caution, will pursue US-guided FNA, per patient's request, as he is uninsured and unable to pursue in the outpatient setting. Repeat thyroid function tests in 1-2 months; if abnormal, when he gets insurance, he will need radioactive iodine uptake and scan for further work up. Right lower lobe Pneumonia - continue treatment with Zosyn Acute hypoxemic respiratory failure - resolved with treatment of pneumonia and COPD exacerbation Acute exacerbation of COPD: unclear diagnosis, unsure if patient has ever had PFTs as outpatient - scheduled and as needed nebulizers including albuterol, ipratropium, budesonide and as needed levalbuterol - outpatient pulmonology follow up Obstructive sleep apnea - he will need outpatient sleep study and would benefit from from CPAP HS Chronic diastolic heart failure - currently euvolemic Hyperglycemia: HbA1c 6.0 (06/04/20) so he is pre-diabetic. Hyperglycemia likely worsened in the s/o steroid administration this hospitalization. Hypertension: well controlled on current regimen Leukocytosis: due to steroid administration Morbid Obesity (BMI 40): recommend diet, exercise and weight loss Noncompliance with medication regimen: unclear if cost and lack of transportation are the cause of patient's non-adherence to medications and appointments. Will contact [facility] and ask for them to set up transportation to appointments. He has applied for Medicaid/disability. SW consulted. - Time Time Spent with patient: 35 or more minutes Anticipated Discharge Disposition: Home, Self Care Anticipated Discharge Timeframe: within 24 hours
[2020-07-06] MEDS: TRAZODONE HCL 50 MG TABLET PO SCH (21:44)
[2020-07-06] MEDS: ASPIRIN 81 MG TABLET, ENT COATED PO SCH (21:44)
[2020-07-06] MEDS: ATORVASTATIN CALCIUM 40 MG TABLET PO SCH (21:44)
[2020-07-06] MEDS: LORAZEPAM 1 MG TABLET PO PRN (21:44)
[2020-07-07] MEDS: PIPERACILLIN SODIUM/TAZOBACTAM 3.375 GM in NORMAL SALINE 100 ML IV SCH ×3 (00:09→12:00)
[2020-07-07] MEDS: IPRATROPIUM/ALBUTEROL 0.5-2.5 MG/3 ML AMPUL NEB SCH ×3 (02:46→13:23)
[2020-07-07] MEDS: BUDESONIDE NEB 0.5 MG/2 ML AMPUL NEB SCH (07:36)
[2020-07-07] MEDS: METFORMIN HCL 500 MG TABLET PO SCH (08:08)
[2020-07-07] MEDS: MAGNESIUM OXIDE 400 MG TABLET PO SCH ×2 (08:08→12:02)
[2020-07-07] MEDS: INSULIN REG, HUMAN 100 UNIT/ML 3 ML VIAL (PYX) SUBCUT SCH ×2 (08:08→12:03)
[2020-07-07] MEDS: IBUPROFEN 600 MG TABLET PO SCH ×2 (08:08→12:02)
--- NOTE | 2020-07-07 11:38 | RADIOLOGY REPORT (SQ) ---
EXAM DESCRIPTION: U/S BIOPSY THYROID IMAGES COMPLETED DATE/TIME: 07/07/2020 11:15 am REASON FOR STUDY: Thyroid nodules COMPARISON: Ultrasound of thyroid gland from 07/04/20. TECHNIQUE: The procedure, risks, benefits, and alternatives were discussed with the patient in the p reprocedural area, and all questions were answered. Informed consent was obtained verbally and in wri ting. The patient was then brought to the procedural suite, positioned supine on a gurney, and a time-out w as performed. Selected grayscale and color Doppler images of the dominant nodule in the left lobe of the thyroid gland were then obtained; based on review of these images an appropriate percutaneous ac cess site was selected. The area around the selected access site was subsequently prepped and draped with 2% chlorhexidine utilizing standard sterile technique. Then, after the access site was anestheti zed with 1% lidocaine, a 25 gauge needle was advanced into the lesion of interest utilizing sonograph ic guidance ; after each pass the sample was submitted to cytopathology for review and in total 3 pas ses were performed. Attention was then turned to the right lobe of the thyroid gland. At first, selected grayscale and c olor Doppler images of the dominant nodule in the left lobe of the thyroid gland were then obtained; based on review of these images an appropriate percutaneous access site was selected. The area around the selected access site was subsequently prepped and draped with 2% chlorhexidine utilizing standar d sterile technique. Then, after the access site was anesthetized with 1% lidocaine, a 25 gauge needl e was advanced into the lesion of interest utilizing sonographic guidance ; after each pass the sampl e was submitted to cytopathology for review and in total 3 passes were performed. The patient tolerated the procedure well with local anesthesia. At the end of the procedure the patient's condition was unchanged from the preprocedural baseline. Documentation of [id number] time the proceduralist spent monitoring the patient: 30 minutes. LIMITATIONS: None. FINDINGS: PATHOLOGY: Pending. IMPRESSION: 1. Successful ultrasound-guided fine-needle aspiration of the dominant nodule in the lef t lobe of thyroid gland. 2. Successful ultrasound-guided fine-needle aspiration of the dominant nodule in the right lobe of th e thyroid gland. COMMENT: Patient medication list reviewed: Yes- Quality ID# [id number]:Eligible professional attests to doc umenting in the medical record they obtained, updated, or reviewed the patient's current medications. TECHNICAL DOCUMENTATION: JOB ID: [id number] 2010 [employer]- All Rights Reserved Reading location - IP/workstation name: [email or web address]
[2020-07-07] MEDS: FAMOTIDINE 20 MG TABLET PO SCH (12:02)
[2020-07-07] MEDS: BUSPIRONE HCL 10 MG TABLET PO SCH (12:02)
[2020-07-07] MEDS: FUROSEMIDE 40 MG TABLET PO SCH (12:02)
[2020-07-07] MEDS: GUAIFENESIN 600 MG TABLET.SA PO SCH (12:03)
[2020-07-07] MEDS: ZINC SULFATE 220 MG CAPSULE PO SCH (12:03)
[2020-07-07] MEDS: METOPROLOL SUCCINATE 50 MG TAB.SR.24H PO SCH (12:03)
[2020-07-07] MEDS: ASCORBIC ACID 500 MG TABLET PO SCH (12:03)
[2020-07-07] MEDS: LOSARTAN POTASSIUM 50 MG TABLET PO SCH (12:04)
[2020-07-07 13:16] VITALS: BP 156/89
--- NOTE | 2020-07-07 16:56 | PDOC DISCHARGE SUMMARY ---
Impression - Admit/DC Date/PCP Admission Date/Primary Care Provider: 07/03/20 15:14 Discharge Date: 07/07/20 - Discharge Diagnosis (1) Subclinical hyperthyroidism Is this a current diagnosis for this admission?: Yes (2) Acute respiratory failure with hypoxia Is this a current diagnosis for this admission?: Yes (3) Noncompliance with medication regimen Is this a current diagnosis for this admission?: Yes (4) Acute exacerbation of chronic obstructive pulmonary disease (COPD) Is this a current diagnosis for this admission?: Yes (5) Chronic diastolic heart failure Is this a current diagnosis for this admission?: Yes (6) Hyperglycemia due to type 2 diabetes mellitus Is this a current diagnosis for this admission?: Yes (7) Morbid obesity with BMI of 40.0-44.9, adult Is this a current diagnosis for this admission?: Yes (8) Obstructive sleep apnea of adult Is this a current diagnosis for this admission?: Yes - Assessment Summary: JOSÉ ANTONIO CRISOSTOMO is a 45 year old homeless/uninsured male with chronic, grade 2/4 diastolic congestive heart failure with normal ejection fraction, morbid obesity, hypertension, hyperlipidemia, DM2, COPD who presented to the ED with acute hypoxic respiratory failure due to RLL pneumonia. Subclinical Hyperthyroidism: TSH 0.06, FT4 and FT3 normal. He has no overt clinical manifestations of hyperthyroidism. He does have a multinodular goiter. Out of an abundance of caution, pursued US-guided FNA on 07/07, per patient's request, as he is uninsured and unable to pursue in the outpatient setting. Recommend repeat thyroid function tests in 1-2 months; if abnormal, when he gets insurance, he will need radioactive iodine uptake and scan for further work up. Right lower lobe Pneumonia: completed treatment with broad spectrum IV antibiotic therapy while inpatient. Acute hypoxemic respiratory failure: resolved with treatment of pneumonia and COPD exacerbation. Acute exacerbation of COPD: unclear diagnosis, unsure if patient has ever had PFTs as outpatient. He received scheduled and as needed nebulizer treatments. He would benefit from outpatient pulmonology follow up. Obstructive sleep apnea: presumed due to body habitus and snoring at night. He reports that he has been told that he "stops breathing" intermittently at night by family/friends. He will need outpatient sleep study. Chronic diastolic heart failure: currently euvolemic. Hyperglycemia: HbA1c 6.0 (06/04/20) so he is pre-diabetic. Hyperglycemia likely worsened in the s/o steroid administration this hospitalization. Hypertension: well controlled on current regimen. Leukocytosis: due to steroid administration. Morbid Obesity (BMI 40): recommend diet, exercise and weight loss. Noncompliance with medication regimen: unclear if cost and lack of transp ortation are the cause of patient's non-adherence to medications and appointments. Will contact [facility] and ask for them to set up transportation to appointments. He has applied for Medicaid/disability. SW consulted. - Additional Information Resuscitation Status: Full Code Discharge Diet: Cardiac, Diabetic Discharge Activity: Activity As Tolerated Referrals: [facility] [Outside] - 07/14/20 9:00 am (apt will be over the phone ) Prescriptions: Carvedilol [Coreg 6.25 mg Tablet] 6.25 mg PO Q12 #60 tablet Furosemide [Lasix 40 mg Tablet] 40 mg PO DAILY #30 tablet Atorvastatin Calcium [Lipitor 40 mg Tablet] 40 mg PO QHS #30 tablet Metformin HCl 1,000 mg PO BIDACBS #60 tablet Lisinopril [Zestril] 40 mg PO DAILY #30 tablet Home Medications: Aspirin [Ecotrin 81 mg EC Tablet] 81 mg PO QHS tabec 07/07/20 Atorvastatin Calcium [Lipitor 40 mg Tablet] 40 mg PO QHS #30 tablet 07/07/20 Carvedilol [Coreg 6.25 mg Tablet] 6.25 mg PO Q12 #60 tablet 07/07/20 Furosemide [Lasix 40 mg Tablet] 40 mg PO DAILY #30 tablet 07/07/20 Lisinopril [Zestril] 40 mg PO DAILY #30 tablet 07/07/20 Metformin HCl 1,000 mg PO BIDACBS #60 tablet 07/07/20 History of Present Illiness History of Present Illness: JOSÉ ANTONIO CRISOSTOMO is a 45 year old male Physical Exam Vital Signs: Temp Pulse Resp BP Pulse Ox 98.3 F 84 14 156/89 H 100 07/07/20 13:14 07/07/20 13:23 07/07/20 13:23 07/07/20 13:14 07/07/20 13:23 Intake & Output 07/06/20 07/07/20 07/08/20 06:59 06:59 06:59 Intake Total 1860 3417 590 Output Total 1800 1050 Balance 1860 1617 -460 Weight 110 kg 110.3 kg Results Laboratory Results: WBC 15.6 10^3/uL (4.0-10.5) H 07/06/20 13:57 RBC 4.84 10^6/uL (4.35-5.55) 07/06/20 13:57 Hgb 13.2 g/dL (13.5-17.0) L 07/06/20 13:57 Hct 40.4 % (37.9-51.0) 07/06/20 13:57 MCV 83 fl (80-97) 07/06/20 13:57 MCH 27.4 pg (27.0-33.4) 07/06/20 13:57 MCHC 32.8 g/dL (32.0-36.0) 07/06/20 13:57 RDW 15.7 % (11.5-14.0) H 07/06/20 13:57 Plt Count 317 10^3/uL (150-450) 07/06/20 13:57 Lymph % (Auto) Not Reportable 07/05/20 05:24 [place] % (Auto) Not Reportable 07/05/20 05:24 Eos % (Auto) Not Reportable 07/05/20 05:24 Baso % (Auto) Not Reportable 07/05/20 05:24 Absolute Neuts (auto) Not Reportable 07/05/20 05:24 Absolute Lymphs (auto) Not Reportable 07/05/20 05:24 Absolute Monos (auto) Not Reportable 07/05/20 05:24 Absolute Eos (auto) Not Reportable 07/05/20 05:24 Absolute Basos (auto) Not Reportable 07/05/20 05:24 Total Counted 100 07/05/20 05:24 Seg Neutrophils % Not Reportable 07/05/20 05:24 Seg Neuts % (Manual) 80 % (42-78) H 07/05/20 05:24 Lymphocytes % (Manual) 10 % (13-45) L 07/05/20 05:24 Monocytes % (Manual) 10 % (3-13) 07/05/20 05:24 Eosinophils % (Manual) 0 % (0-6) 07/05/20 05:24 Basophils % (Manual) 0 % (0-2) 07/05/20 05:24 Abs Neuts (Manual) 17.0 10^3/uL (1.7-8.2) H 07/05/20 05:24 Abs Lymphs (Manual) 2.1 10^3/uL (0.5-4.7) 07/05/20 05:24 Abs Monocytes (Manual) 2.1 10^3/uL (0.1-1.4) H 07/05/20 05:24 Absolute Eos (Manual) 0.0 10^3/uL (0.0-0.6) 07/05/20 05:24 Abs Basophils (Manual) 0.0 10^3/uL (0.0-0.2) 07/05/20 05:24 Large Platelets PRESENT 07/05/20 05:24 Platelet Comment ADEQUATE 07/05/20 05:24 Polychromasia SLIGHT 07/05/20 05:24 Anisocytosis SLIGHT 07/05/20 05:24 PT 14.6 SEC (11.4-15.4) 07/03/20 18:25 INR 1.12 07/03/20 18:25 APTT 36.8 SEC (23.5-35.8) H 07/03/20 18:25 D-Dimer 3.62 ug/mL (0.00-0.50) H 07/05/20 05:24 Carbonic Acid 1.27 mmol/L (1.05-1.35) 07/03/20 11:06 HCO3/H2CO3 Ratio 22:1 07/03/20 11:06 ABG pH 7.45 (7.35-7.45) 07/03/20 11:06 ABG pCO2 42.1 mmHg (35-45) 07/03/20 11:06 ABG pO2 79.2 mmHg (80-100) L 07/03/20 11:06 ABG HCO3 28.6 mmol/L (20-24) H 07/03/20 11:06 ABG Total CO2 29.9 mmol/L (23-27) H 07/03/20 11:06 ABG O2 Saturation 96.2 % (94-98) 07/03/20 11:06 ABG Base Excess 4.1 mmol/L 07/03/20 11:06 FiO2 2L 07/03/20 11:06 Sodium 138.7 mmol/L (137-145) 07/05/20 05:24 Potassium 4.5 mmol/L (3.6-5.0) 07/05/20 05:24 Chloride 100 mmol/L (98-107) 07/05/20 05:24 Carbon Dioxide 27 mmol/L (22-30) 07/05/20 05:24 Anion Gap 12 (5-19) 07/05/20 05:24 BUN 27 mg/dL (7-20) H 07/05/20 05:24 Creatinine 0.85 mg/dL (0.52-1.25) 07/05/20 05:24 Est GFR ( Amer) > 60 (>60) 07/05/20 05:24 Est GFR (MDRD) Non-Af > 60 (>60) 07/05/20 05:24 Glucose 115 mg/dL (75-110) H 07/05/20 05:24 POC Glucose 171 mg/dL (70-110) H 07/07/20 11:17 Calcium 8.5 mg/dL (8.4-10.2) 07/05/20 05:24 Magnesium 1.8 mg/dL (1.6-2.3) 07/05/20 05:24 Ferritin 231.00 ng/mL (17.9-464.0) 07/04/20 11:33 Total Bilirubin 0.8 mg/dL (0.2-1.3) 07/03/20 09:00 Direct Bilirubin 0.0 mg/dL (0.0-0.4) 07/03/20 09:00 Neonat Total Bilirubin Not Reportable 07/03/20 09:00 Neonat Direct Bilirubin Not Reportable 07/03/20 09:00 Neonat Indirect Bili Not Reportable 07/03/20 09:00 AST 21 U/L (17-59) 07/03/20 09:00 ALT 18 U/L (<50) 07/03/20 09:00 Alkaline Phosphatase 142 U/L (38-126) H 07/03/20 09:00 Lactate Dehydrogenase 160 U/L (120-246) 07/04/20 11:33 Creatine Kinase 128 U/L (55-170) 07/03/20 09:00 CK-MB (CK-2) 0.85 ng/mL (<4.55) 07/03/20 09:00 Troponin I 0.012 ng/mL 07/03/20 12:05 C-Reactive Protein 185.7 mg/L (<10.0) H 07/04/20 11:33 NT-Pro-B Natriuret Pep 104 pg/mL (<125) 07/03/20 09:00 Total Protein 8.0 g/dL (6.3-8.2) 07/03/20 09:00 Albumin 3.8 g/dL (3.5-5.0) 07/03/20 09:00 TSH 0.06 uIU/mL (0.47-4.68) L 07/06/20 13:57 Free T4 1.52 ng/dL (0.78-2.19) 07/06/20 13:57 Free T3 pg/mL 3.25 pg/mL (2.77-5.27) 07/06/20 13:57 07/03/20 07/03/20 07/03/20 09:00 09:00 12:05 CK-MB (CK-2) 0.85 Troponin I 0.033 0.012 NT-Pro-B Natriuret Pep 104 Impressions: Chest X-Ray 07/03/20 08:48 IMPRESSION: Generally improved aeration of the lungs. Chest/Abdomen CTA 07/03/20 12:21 IMPRESSION: No pulmonary emboli. Bibasilar pneumonia right greater than left with right pleural effusion. Chest X-Ray 07/04/20 00:00 IMPRESSION: Increasing right pleural effusion and right basilar opacity. Thyroid Ultrasound 07/04/20 00:00 IMPRESSION: The thyroid gland is enlarged with heterogeneous, solid nodules with the left thyroid lobe measuring arterially for fine-needle aspiration. The right thyroid lobe also likely meets criteria by 1 mm. Thyroid Biopsy Ultrasound 07/07/20 00:00 IMPRESSION: 1. Successful ultrasound-guided fine-needle aspiration of the dominant nodule in the left lobe of thyroid gland. 2. Successful ultrasound-guided fine-needle aspiration of the dominant nodule in the right lobe of the thyroid gland. Stroke Is this a Stroke Patient?: No Acute Heart Failure Is this a Heart Failure Patient?: Yes Documentation of LVEF assessment?: Yes LVEF: LVEF Greater Than 40% Anticoagulant Therapy: N/A
== END 2020-07-07 13:59 | disposition home or self-care (01) | DRG 193 ==
LOC: ER 08:42 → EH 15:14 → 3W 20:41 → 5 07-04 15:54
PROVIDERS: ADMIT Hospitalist; ATTEND Hospitalist
PROC: 5A09357 Assistance with Respiratory Ventilation, Less than 24 Consecutive Hours, Continuous Positive Airway Pressure (ICD-10-PCS; 2020-07-03)
PROC: 0G9G3ZX Drainage of Left Thyroid Gland Lobe, Percutaneous Approach, Diagnostic (ICD-10-PCS; principal; 2020-07-07)
PROC: 0G9H3ZX Drainage of Right Thyroid Gland Lobe, Percutaneous Approach, Diagnostic (ICD-10-PCS; 2020-07-07)
DX: J18.9 Pneumonia, unspecified organism (principal); J96.21 Acute and chronic respiratory failure with hypoxia; J44.0 Chronic obstructive pulmonary disease with (acute) lower respiratory infection; I50.32 Chronic diastolic (congestive) heart failure; Z68.41 Body mass index [BMI] 40.0-44.9, adult; G47.33 Obstructive sleep apnea (adult) (pediatric); I11.0 Hypertensive heart disease with heart failure; E78.5 Hyperlipidemia, unspecified; M19.90 Unspecified osteoarthritis, unspecified site; R00.0 Tachycardia, unspecified; E04.2 Nontoxic multinodular goiter; E66.01 Morbid (severe) obesity due to excess calories; R73.03 Prediabetes; M10.9 Gout, unspecified; D72.829 Elevated white blood cell count, unspecified; T38.0X5A Adverse effect of glucocorticoids and synthetic analogues, initial encounter; Z79.84 Long term (current) use of oral hypoglycemic drugs; Z79.82 Long term (current) use of aspirin; Z86.711 Personal history of pulmonary embolism; Z79.899 Other long term (current) drug therapy; Z87.891 Personal history of nicotine dependence; Z83.3 Family history of diabetes mellitus; Z82.49 Family history of ischemic heart disease and other diseases of the circulatory system; Z83.49 Family history of other endocrine, nutritional and metabolic diseases; Z59.0 Homelessness; Z59.7 Insufficient social insurance and welfare support; Z91.19 Patient's noncompliance with other medical treatment and regimen
CPT/HCPCS: 10005; 36415; 71045; 71275; 76536; 80048; 80053; 82550; 82553; 82728; 82803; 82962; 83615; 83735; 83880; 84439; 84443; 84481; 84484; 85025; 85027; 85379; 85610; 85730; 86140; 88173; 93005; 93010; 94660; 96374; 96375; 99285; J0456; J0696; J1100; J1650; J1815; J1885; J1940; J2060; J2543; J2930; J3490; J7050; J7060

== ENCOUNTER 2020-07-13 07:17 | Inpatient (IN) | payer OTHER ==
--- NOTE | 2020-07-13 07:44 | ER Document Report ---
ED Respiratory Problem - General Chief Complaint: Shortness Of Breath Stated Complaint: SHORT OF BREATH Time Seen by Provider: 07/13/20 07:41 Mode of Arrival: Ambulatory Information source: Patient Notes: LAST ADMIT NOTE by TERRY AGUIRRE on 07/07/20 16:52Initialization Date: 07/07/20 16:52 Admission Date/Primary Care Provider: 07/03/20 15:14 Discharge Date: 07/07/20 - Discharge Diagnosis (1) Subclinical hyperthyroidism (2) Acute respiratory failure with hypoxia (3) Noncompliance with medication regimen (4) Acute exacerbation of chronic obstructive pulmonary disease (COPD) (5) Chronic diastolic heart failure (6) Hyperglycemia due to type 2 diabetes mellitus (7) Morbid obesity with BMI of 40.0-44.9, adult (8) Obstructive sleep apnea of adult - Assessment Summary: JOSÉ ANTONIO CRISOSTOMO is a 45 year old homeless/uninsured male with chronic, grade 2/4 diastolic congestive heart failure with normal ejection fraction, morbid obesity, hypertension, hyperlipidemia, DM2, COPD who presented to the ED with acute hypoxic respiratory failure due to RLL pneumonia. Subclinical Hyperthyroidism: TSH 0.06, FT4 and FT3 normal. He has no overt clinical manifestations of hyperthyroidism. He does have a multinodular goiter. Out of an abundance of caution, pursued US-guided FNA on 07/07, per patient's request, as he is uninsured and unable to pursue in the outpatient setting. R ecommend repeat thyroid function tests in 1-2 months; if abnormal, when he gets insurance, he will need radioactive iodine uptake and scan for further work up. Right lower lobe Pneumonia: completed treatment with broad spectrum IV antibiotic therapy while inpatient. Acute hypoxemic respiratory failure: resolved with treatment of pneumonia and CO PD exacerbation. Acute exacerbation of COPD: unclear diagnosis, unsure if patient has ever had PFTs as outpatient. He received scheduled and as needed nebulizer treatments. He would benefit from outpatient pulmonology follow up. Obstructive sleep apnea: presumed due to body habitus and snoring at night. He reports that he has been told that he "stops breathing" intermittently at night by family/friends. He will need outpatient sleep study. Chronic diastolic heart failure: currently euvolemic. Hyperglycemia: HbA1c 6.0 (06/04/20) so he is pre-diabetic. Hyperglycemia likely worsened in the s/o steroid administration this hospitalization. Hypertension: well controlled on current regimen. Leukocytosis: due to steroid administration. Morbid Obesity (BMI 40): recommend diet, exercise and weight loss. Noncompliance with medication regimen: unclear if cost and lack of transportation are the cause of patient's non-adherence to medications and appointments. Will contact [facility] and ask for them to set up transportation to appointments. He has applied for Medicaid/disability. SW consulted. - Additional Information Resuscitation Status: Full Code Discharge Diet: Cardiac, Diabetic Discharge Activity: Activity As Tolerated Referrals: [facility] [Outside] - 07/14/20 9:00 am (apt will be over the phone ) Prescriptions: Carvedilol [Coreg 6.25 mg Tablet] 6.25 mg PO Q12 #60 tablet Furosemide [Lasix 40 mg Tablet] 40 mg PO DAILY #30 tablet Atorvastatin Calcium [Lipitor 40 mg Tablet] 40 mg PO QHS #30 tablet Metformin HCl 1,000 mg PO BIDACBS #60 tablet Lisinopril [Zestril] 40 mg PO DAILY #30 tablet Home Medications: Aspirin [Ecotrin 81 mg EC Tablet] 81 mg PO QHS tabec 07/07/20 Atorvastatin Calcium [Lipitor 40 mg Tablet] 40 mg PO QHS #30 tablet 07/07/20 Carvedilol [Coreg 6.25 mg Tablet] 6.25 mg PO Q12 #60 tablet 07/07/20 Furosemide [Lasix 40 mg Tablet] 40 mg PO DAILY #30 tablet 07/07/20 Lisinopril [Zestril] 40 mg PO DAILY #30 tablet 07/07/20 Metformin HCl 1,000 mg PO BIDACBS #60 tablet 07/07/20 07/13/20 07:28 - Nursing Note by KIN CIFUENTES Acct Num: [id number] : 1975 Patient Age: 45 Pt assisted to triage room via wheelchair. Resp even & unlabored. Pt able to speak in complete sentences. NAD noted at present time. Pt reports runny nose, SOB & chest pain x 2 days. Pt also reports recent pneumonia and hospitalized for same 2 weeks ago. Pt also reports using albuterol inhaler this morning at 4:30am this morning without relief. MY NOTES 13 Jul 2020 TRAVEL OUTSIDE OF THE [place] IN LAST 30 DAYS: No - HPI Severity: Mild Pain Level: 1 Context: Hx CHF, Hx COPD, Other - PE Chest pain/discomfort: Constant Sputum color: Clear EMS treatments: Diuretics Associated symptoms: Chest pain/discomfort, Difficulty breathing - Related Data Allergies/Adverse Reactions: No Known Allergies Allergy (Verified 07/13/20 07:26) Past Medical History - General Information source: Patient - Social History Smoking Status: Former Smoker Cigarette use (# per day): No Chew tobacco use (# tins/day): No Frequency of alcohol use: None Drug Abuse: None Lives with: Family Family History: DM, Hyperlipidemia, Hypertension, Thyroid Disfunction Patient has suicidal ideation: No Patient has homicidal ideation: No - Past Medical History Cardiac Medical History: Reports: Hx Congestive Heart Failure, Hx Hypercholesterolemia, Hx Hypertension Denies: Hx Atrial Fibrillation, Hx Coronary Artery Disease, Hx DVT, Hx Heart Attack, Hx Pulmonary Embolism Pulmonary Medical History: Reports: Hx COPD, Hx Sleep Apnea Denies: Hx Asthma Neurological Medical History: Denies: Hx Seizures Endocrine Medical History: Reports: Hx Diabetes Mellitus Type 2, Hx Hyperthyroidism. Denies: Hx Diabetes Mellitus Type 1, Hx Hypothyroidism Renal/ Medical History: Denies: Hx Peritoneal Dialysis GI Medical History: Denies: Hx Cirrhosis, Hx Hepatitis Musculoskeletal Medical History: Reports Hx Arthritis, Reports Hx Gout Skin Medical History: Denies Hx Eczema, Denies Hx Psoriasis Psychiatric Medical History: Reports: Hx Anxiety, Hx Depression Infectious Medical History: Denies: Hx Hepatitis Past Surgical History: Reports: Hx Abdominal Surgery, Hx Cardiac Catheterization, Hx Orthopedic Surgery - Rt knee - Immunizations Hx Diphtheria, Pertussis, Tetanus Vaccination: Yes Review of Systems - Review of Systems Constitutional: See HPI, Malaise, Weakness, Recent illness EENT: No symptoms reported Cardiovascular: See HPI, Chest pain Respiratory: See HPI, Cough, Hurts to breathe, Short of breath, Sputum Gastrointestinal: No symptoms reported Genitourinary: No symptoms reported Male Genitourinary: No symptoms reported Musculoskeletal: See HPI, Leg swelling, Ankle swelling - bilaterally Skin: No symptoms reported Hematologic/Lymphatic: No symptoms reported Neurological/Psychological: See HPI, Weakness -: Yes All other systems reviewed and negative Physical Exam - Vital signs Vitals: Temp Pulse Resp BP Pulse Ox 99.1 F 116 H 22 H 157/119 H 94 07/13/20 07:22 07/13/20 07:22 07/13/20 07:22 07/13/20 07:22 07/13/20 07:22 Interpretation: Hypertensive, Tachycardic, Tachypneic - General General appearance: Appears well, Alert - HEENT Head: Normocephalic, Atraumatic Eyes: Normal Pupils: PERRL - Respiratory Respiratory status: Respiratory distress, Tachypnea Chest status: Tender - Midsternal chest pain around sternum tender to palpation Breath sounds: Rales - Right lower lobe Chest palpation: Normal - Cardiovascular Rhythm: Tachycardia Heart sounds: Normal auscultation Murmur: No - Abdominal Inspection: Normal Distension: No distension Bowel sounds: Normal Tenderness: Nontender Organomegaly: No organomegaly - Rectal Prostate: Other - deferred - Genitourinary Scrotum: Other - deferred - Back Back: Normal, Nontender - Extremities General upper extremity: Normal inspection, Nontender, Normal color, Normal ROM, Normal temperature General lower extremity: Normal inspection, Nontender, Normal color, Normal ROM, Normal temperature, Normal weight bearing. No: Gael's sign - Neurological Neuro grossly intact: Yes Cognition: Normal Orientation: AAOx4 Bison Coma Scale Eye Opening: Spontaneous Bison Coma Scale Verbal: Oriented Bison Coma Scale Motor: Obeys Commands Bison Coma Scale Total: 15 Speech: Normal Motor strength normal: LUE, RUE, LLE, RLE Sensory: Normal - Psychological Associated symptoms: Normal affect, Normal mood - Skin Skin Temperature: Warm Skin Moisture: Dry Skin Color: Normal Course - Vital Signs Vital signs: Temp Pulse Resp BP Pulse Ox 99.1 F 116 H 25 H 129/98 H 98 07/13/20 07:22 07/13/20 07:22 07/13/20 10:01 07/13/20 10:01 07/13/20 09:35 - Laboratory Result Diagrams: 07/13/20 07:55 07/13/20 07:55 Laboratory results interpreted by me: 07/13/20 07/13/20 07/13/20 07:55 07:55 07:55 WBC 17.2 H RDW 15.8 H Lymph % (Auto) 11.6 L Absolute Neuts (auto) 13.0 H Absolute Monos (auto) 1.9 H D-Dimer 5.17 H Sodium 134.1 L Chloride 96 L Glucose 168 H Total Bilirubin 1.8 H Alkaline Phosphatase 142 H Urine Protein Urine Blood Urine Urobilinogen 07/13/20 08:00 WBC RDW Lymph % (Auto) Absolute Neuts (auto) Absolute Monos (auto) D-Dimer Sodium Chloride Glucose Total Bilirubin Alkaline Phosphatase Urine Protein 100 H Urine Blood SMALL H Urine Urobilinogen 2.0 H - Diagnostic Test Radiology Studies Status: Radiology Image Reviewed, Radiology Report Reviewed Radiology results interpreted by me: 07/13/20 09:[address] eff ; cta as per rad read as well 07/13/20 10:24 CTA read as pulmonary embolism by radiology I did evaluate the CT as well. - EKG Interpretation by Me EKG shows normal: Sinus rhythm Rate: Tachycardia Rhythm: NSR - Heart rate 116 bpm with no obvious ST elevation or ST depression or T wave elevation and this was read by myself and I agree with the EKG machine readings Critical Care Note - Critical Care Note Comments: After receiving results of CTA positive for right-sided PE I called Alli Combs at [phone] around [address] Janine Dia be called and I spoke with her at 1020 and she advises IMCU Discharge - Discharge Clinical Impression: right basilar effusion, Shortness of breath, Pulmonary embolism Pneumonia Qualifiers: Pneumonia type: due to unspecified organism Laterality: right Lung location: lower lobe of lung Qualified Code(s): J18.9 - Pneumonia, unspecified organism Condition: Stable Disposition: ADMITTED INPATIENT Admitting Provider: [facility] (Hospitalist) Unit Admitted: [facility]
--- NOTE | 2020-07-13 08:13 | RADIOLOGY REPORT (SQ) ---
EXAM DESCRIPTION: CHEST SINGLE VIEW IMAGES COMPLETED DATE/TIME: 07/13/2020 6:52 am REASON FOR STUDY: fever COMPARISON: 06/27/2020 EXAM PARAMETERS: NUMBER OF VIEWS: One view. TECHNIQUE: Single frontal radiographic view of the chest acquired. RADIATION DOSE: NA LIMITATIONS: None. FINDINGS: LUNGS AND PLEURA: Stable small right pleural effusion with compressive atelectasis/ consol idation at the right lung base. Left lung remains clear. No pneumothorax. MEDIASTINUM AND HILAR STRUCTURES: No masses. Contour normal. HEART AND VASCULAR STRUCTURES: Heart normal in size. Normal vasculature. BONES: No acute findings. HARDWARE: None in the chest. OTHER: No other significant finding. IMPRESSION: Small right basilar effusion and atelectasis, stable. TECHNICAL DOCUMENTATION: JOB ID: [id number] [employer]- All Rights Reserved Reading location - IP/workstation name: [email or web address]
[2020-07-13 08:36] LABS: ABSOLUTE BASOPHILS # (AUTO) 0.1 10^3/uL (0.0-0.2); ABSOLUTE EOSINOPHILS # (AUTO) 0.1 10^3/uL (0.0-0.6); ABSOLUTE MONOCYTES (AUTO) 1.9 10^3/uL (0.1-1.4); BASOPHILS % (AUTO) 0.6 % (0-2); EOSINOPHILS % (AUTO) 0.7 % (0-6); HEMATOCRIT 40.9 % (37.9-51.0); HEMOGLOBIN 13.9 g/dL (13.5-17.0); LYMPHOCYTES % (AUTO) 11.6 % (13-45); MEAN CORPUSCULAR HEMOGLOBIN 27.8 pg (27.0-33.4); MEAN CORPUSCULAR VOLUME 82 fl (80-97); MONOCYTES % (AUTO) 11.2 % (3-13); PLATELET COUNT 265 10^3/uL (150-450); RED BLOOD COUNT 4.98 10^6/uL (4.35-5.55); RED CELL DISTRIBUTION WIDTH 15.8 % (11.5-14.0); SEGMENTED NEUTROPHILS % (AUTO) 75.9 % (42-78); TOTAL CELLS COUNTED % (AUTO) 100 %; WHITE BLOOD COUNT 17.2 10^3/uL (4.0-10.5)
[2020-07-13 08:45] LABS: INTERNATIONAL RATION (INR) 1.15; PROTHROMBIN TIME 14.9 SEC (11.4-15.4)
[2020-07-13 09:02] LABS: ALBUMIN 3.6 g/dL (3.5-5.0); ALKALINE PHOSPHATASE 142 U/L (38-126); ANION GAP 11 (5-19); BILIRUBIN,DIRECT 0.3 mg/dL (0.0-0.4); BILIRUBIN,TOTAL 1.8 mg/dL (0.2-1.3); BLOOD UREA NITROGEN 10 mg/dL (7-20); CALCIUM 8.7 mg/dL (8.4-10.2); CARBON DIOXIDE 27 mmol/L (22-30); CHLORIDE 96 mmol/L (98-107); GLUCOSE 168 mg/dL (75-110); POTASSIUM 4.5 mmol/L (3.6-5.0); TOTAL PROTEIN 8.1 g/dL (6.3-8.2)
[2020-07-13 09:04] LABS: TROPONIN I 0.031 ng/mL
[2020-07-13 09:05] LABS: D-DIMER 5.17 ug/mL (0.00-0.50)
[2020-07-13 09:06] LABS: APPEARANCE,URINE CLEAR; BILIRUBIN,URINE NEGATIVE (NEGATIVE); COLOR,URINE YELLOW; GLUCOSE, URINE NEGATIVE (NEGATIVE); KETONES,URINE NEGATIVE (NEGATIVE); LEUKOCYTE ESTERASE,URINE NEGATIVE (NEGATIVE); NITRITE,URINE NEGATIVE (NEGATIVE); PROTEIN,URINE 100 mg/dL (NEGATIVE)
[2020-07-13 09:36] LABS: ASPARTATE AMINO TRANSFERASE 23 U/L (17-59)
[2020-07-13] MEDS ORDERED: VANCOMYCIN HCL INJ 1000 MG VIAL IV ONE (09:48)
[2020-07-13] MEDS ORDERED: PIPERACILLIN/TAZOBACTAM 3.375 GM VIAL IV ONE (09:49)
[2020-07-13] MEDS ORDERED: KETOROLAC TROMETHAMINE INJ/PF 30 MG/1 ML SDV IV ONE (09:51)
--- NOTE | 2020-07-13 10:16 | RADIOLOGY REPORT (SQ) ---
EXAM DESCRIPTION: CTA CHEST IMAGES COMPLETED DATE/TIME: 07/13/2020 9:39 am REASON FOR STUDY: sob COMPARISON: 07/03/2020. TECHNIQUE: CT scan of the chest performed using helical scanning technique with dynamic intravenous contrast injection. Images reviewed with lung, soft tissue and bone windows. Reconstructed coronal and sagittal MPR images reviewed. Additional 3 dimensional post-processing performed to develop Maximal Intensity Projection images (LA P). All images stored on PACS. All CT scanners at this facility use dose modulation, iterative reconstruction, and/or weight based d osing when appropriate to reduce radiation dose to as low as reasonably achievable (ALARA). [facility]: Dose Right [facility]: CareDose [facility]: Dose Right [facility]: Teradose 4D [facility]: Bioptigen CONTRAST TYPE AND DOSE: contrast/concentration: Isovue 350.00 mmol/ml; Total Contrast Delivered: 71. 0 ml; Total Saline Delivered: 70.0 ml Contrast bolus adequate for pulmonary arteries and aorta. RENAL FUNCTION: BUN 10 creatinine 0.72. RADIATION DOSE: CT Rad equipment meets quality standard of care and radiation dose reduction techniq ues were employed. CTDIvol: 13.2 - 36.0 mGy. DLP: 1274 mGy-cm. . LIMITATIONS: None. FINDINGS: LUNGS AND PLEURA: Moderate right pleural effusion has increased. Airspace disease in the right lung has also progressed. Left lung relatively clear with mild atelectasis or scarring in the left lung base. AORTA AND GREAT VESSELS: No aneurysm. Contrast bolus not optimized for the aorta. HEART: Cardiomegaly. No pericardial effusion. No significant coronary artery calcifications. PULMONARY ARTERIES: There are filling defects consistent with emboli in the right upper lobe and righ t lower lobe pulmonary arteries. There is probably a small embolism in a smaller branch to the left lower lobe. HILAR AND MEDIASTINAL STRUCTURES: Mediastinal lymph nodes upper limits of normal. HARDWARE: None in the chest. UPPER ABDOMEN: No significant findings. Limited exam. THYROID AND OTHER SOFT TISSUES: Diffuse thyromegaly, left greater than right. No adenopathy. BONES: No acute or significant finding. 3D MIPS: Confirm above findings. OTHER: No other significant finding. IMPRESSION: 1. PULMONARY EMBOLI PARTICULARLY INVOLVING THE RIGHT UPPER LOBE AND RIGHT LOWER LOBE PULMONARY ARTERI ES. 2. RIGHT PLEURAL EFFUSION HAS INCREASED. AIRSPACE DISEASE IN THE RIGHT LUNG HAS ALSO INCREASED. 3. OTHER FINDINGS INCLUDE THYROMEGALY AND BORDERLINE MEDIASTINAL ADENOPATHY. COMMENT: Pertinent findings on the imaging study reported as a CRITICAL RESULT to PARAS Sinclair at10:06 on 07/13/2020. Category of Critical Result: Pulmonary emboli. Quality ID # 436: Final reports with documentation of one or more dose reduction techniques (e.g., Au tomated exposure control, adjustment of the mA and/or kV according to patient size, use of iterative reconstruction technique) TECHNICAL DOCUMENTATION: JOB ID: [id number] 2010 [employer]- All Rights Reserved Reading location - IP/workstation name: [email or web address]
[2020-07-13] MEDS: ENOXAPARIN SODIUM INJ 120 MG/0.8 ML DISP.SYRIN SUBCUT SCH ×2 (10:53→22:45)
[2020-07-13] MEDS ORDERED: ONDANSETRON 4 MG TAB.RAPDIS PO PRN (12:26)
[2020-07-13] MEDS ORDERED: IPRATROPIUM/ALBUTEROL 0.5-2.5 MG/3 ML AMPUL NEB PRN (12:26)
[2020-07-13 16:47] LABS: HEMATOCRIT 40.4 % (37.9-51.0); HEMOGLOBIN 13.5 g/dL (13.5-17.0); MEAN CORPUSCULAR HEMOGLOBIN 27.7 pg (27.0-33.4); MEAN CORPUSCULAR HGB CONC 33.3 g/dL (32.0-36.0); MEAN CORPUSCULAR VOLUME 83 fl (80-97); PLATELET COUNT 228 10^3/uL (150-450); RED BLOOD COUNT 4.85 10^6/uL (4.35-5.55); RED CELL DISTRIBUTION WIDTH 15.6 % (11.5-14.0); WHITE BLOOD COUNT 16.6 10^3/uL (4.0-10.5)
[2020-07-13] MEDS ORDERED: DEXTROSE 40% GEL 15 GM TUBE PO PRN ×2 (17:01)
[2020-07-13] MEDS ORDERED: GLUCAGON,HUMAN RECOMB 1 MG INJ IM PRN (17:01)
[2020-07-13] MEDS ORDERED: DEXTROSE 50%-WATER 25 GM/50 ML DISP.SYRIN IV PRN ×2 (17:01)
--- NOTE | 2020-07-13 17:07 | PDOC H&P ---
History of Present Illness Admission Date/PCP: 07/13/20 10:29 Patient complains of: Shortness of breath History of Present Illness: JOSÉ ANTONIO CRISOSTOMO is a 45 year old male, PMH of PE January 2019 not on anticoagulation, Diastolic CHF, COPD, RAMON, type 2 DM who came in the ED due to SOB. The patient was just recently discharged at [facility] due to acute hypoxic respiratory failure 2/2 RLL pneumonia and COPD. He completed inpatient abx. He was discharge July 06, 2020. According to him his breathing did not really improve after discharge. He came in today due to shortness of breath and midsternal chest pain. In the ED blood pressure 133/100, pulse rate of 101, respiratory rate 27, O2 sat 94%. X-ray showed small right basilar effusion and atelectasis. CTA chest showed pulmonary embolism involving the right upper lobe and right lower lobe. Right pleural effusion has increased. Airspace disease in the right lung is also increased. WBC count 17.2 troponin 0.0 31, BNP 60. He was initially put on BiPAP and was started on Lovenox therapeutic dose. Patient is hemodynamically stable. Hospitalist service called for further evaluation and management. Per review of previous notes he has a history of pulmonary embolism back in January 2019 but he is not been on any anticoagulation since then. He has a history of poor medication compliance and has been admitted multiple times at least once every month the past few months or shortness of breath. Past Medical History Cardiac Medical History: Reports: Congestive Heart Failure, Hyperlipidema, Hypertension, Pulmonary Embolism Denies: Atrial Fibrillation, Coronary Artery Disease, DVT, Myocardial Infarction Pulmonary Medical History: Reports: Chronic Obstructive Pulmonary Disease (COPD), Sleep Apnea Denies: Asthma Neurological Medical History: Denies: Seizures Endocrine Medical History: Reports: Diabetes Mellitus Type 2, Hyperthyroidism Denies: Diabetes Mellitus Type 1, Hypothyroidism GI Medical History: Denies: Cirrhosis, Hepatitis Musculoskeltal Medical History: Reports: Arthritis, Gout Skin Medical History: Denies: Eczema, Psoriasis Psychiatric Medical History: Reports: Depression Hematology: Denies: Anemia, Bleeding Tendencies Past Surgical History Past Surgical History: Reports: Cardiac Catheterization, Orthopedic Surgery - Rt knee Social History Information Source: Patient Lives with: Family Smoking Status: Former Smoker Frequency of Alcohol Use: Occasional Hx Recreational Drug Use: No Drugs: None Hx Prescription Drug Abuse: No Family History Family History: DM, Hyperlipidemia, Hypertension, Thyroid Disfunction Parental Family History Reviewed: Yes Children Family History Reviewed: Yes Sibling(s) Family History Reviewed.: Yes Medication/Allergy Home Medications: Metformin HCl 1,000 mg PO BIDACBS #60 tablet 07/07/20 Albuterol Sulfate [Ventolin Hfa 8 gm Mdi] 3 puff IH Q4 07/13/20 Allergies/Adverse Reactions: No Known Allergies Allergy (Verified 07/13/20 07:26) Review of Systems Constitutional: ABSENT: as per HPI Eyes: ABSENT: visual disturbances Ears: ABSENT: hearing changes Nose, Mouth, and Throat: ABSENT: sore throat Cardiovascular: PRESENT: chest pain. ABSENT: edema Respiratory: PRESENT: cough. ABSENT: hemoptysis Gastrointestinal: ABSENT: diarrhea, heartburn, hematemesis Genitourinary: ABSENT: dysuria Integumentary: ABSENT: diaphoresis Neurological: ABSENT: abnormal movements, focal weakness, frequent falls, memory loss Psychiatric: ABSENT: hallucinations Physical Exam Vital Signs: Temp Pulse Resp BP Pulse Ox 98.2 F 96 24 H 127/80 H 97 07/13/20 14:31 07/13/20 14:31 07/13/20 14:31 07/13/20 14:31 07/13/20 14:31 Intake & Output 07/12/20 07/13/20 07/14/20 06:59 06:59 06:59 Weight 111.7 kg General appearance: PRESENT: cooperative, mild distress Head exam: PRESENT: atraumatic, normocephalic Eye exam: PRESENT: EOMI, PERRLA Mouth exam: PRESENT: moist Neck exam: PRESENT: full ROM Respiratory exam: PRESENT: clear to auscultation nitin, symmetrical, unlabored Cardiovascular exam: PRESENT: RRR, +S1, +S2 GI/Abdominal exam: PRESENT: normal bowel sounds, soft. ABSENT: rebound, tendern ess Extremities exam: PRESENT: full ROM Musculoskeletal exam: PRESENT: full ROM Neurological exam: PRESENT: alert, awake, oriented to person, oriented to place, oriented to time, oriented to situation Psychiatric exam: PRESENT: normal mood Skin exam: PRESENT: normal color Results Laboratory Results: 07/13/20 07:55 07/13/20 07:55 07/13/20 07/13/20 07/13/20 07:55 07:55 08:00 WBC 17.2 H RBC 4.98 Hgb 13.9 Hct 40.9 MCV 82 MCH 27.8 MCHC 34.0 RDW 15.8 H Plt Count 265 Seg Neutrophils % 75.9 Sodium 134.1 L Potassium 4.5 Chloride 96 L Carbon Dioxide 27 Anion Gap 11 BUN 10 Creatinine 0.72 Est GFR ( Amer) > 60 Glucose 168 H Calcium 8.7 Total Bilirubin 1.8 H AST 23 Alkaline Phosphatase 142 H Total Protein 8.1 Albumin 3.6 Urine Color YELLOW Urine Appearance CLEAR Urine pH 7.0 Ur Specific [place] 1.010 Urine Protein 100 H Urine Glucose (UA) NEGATIVE Urine Ketones NEGATIVE Urine Blood SMALL H Urine Nitrite NEGATIVE Ur Leukocyte Esterase NEGATIVE Urine WBC (Auto) 1 Urine RBC (Auto) 3 07/13/20 07:55 Troponin I 0.031 NT-Pro-B Natriuret Pep 60 Impressions: Chest X-Ray 07/13/20 07:42 IMPRESSION: Small right basilar effusion and atelectasis, stable. Chest/Abdomen CTA 07/13/20 08:36 IMPRESSION: 1. PULMONARY EMBOLI PARTICULARLY INVOLVING THE RIGHT UPPER LOBE AND RIGHT LOWER LOBE PULMONARY ARTERIES. 2. RIGHT PLEURAL EFFUSION HAS INCREASED. AIRSPACE DISEASE IN THE RIGHT LUNG HAS ALSO INCREASED. 3. OTHER FINDINGS INCLUDE THYROMEGALY AND BORDERLINE MEDIASTINAL ADENOPATHY. Assessment and Plan - Diagnosis (1) Acute respiratory failure with hypoxia Is this a current diagnosis for this admission?: Yes Plan: - multifactorial cause. From new PE plus hx of COPD, sleep apnea and recent pneumonia with pleural effusion - O2 sat 94% improved with BIpap - CTA positive for PE - also showed increasing right pleural effusion - continue O2 support - COVID test pending - lovenox overlapped with coumadin - duoneb PRN - BIPAP at night (2) Pulmonary embolism Qualifiers: Pulmonary embolism type: single subsegmental (without acute cor pulmonale) Qualified Code(s): I26.93 - Single subsegmental pulmonary embolism without acute cor pulmonale Is this a current diagnosis for this admission?: Yes Plan: - per review of history he has history of pulmonary embolism back in January 2019 but it seems that he has not been taking warfarin. -Recently admitted for right lower lobe pneumonia for 5 days. He was on DVT prophylaxis 10. -CT angio showed PE right upper lobe and right lower lobe. -With his prior history of pulmonary embolism he will need indefinite anticoagulation. Patient has no insurance so warfarin might be the best option for him versus Eliquis or Xarelto. -Currently on Lovenox bridging to warfarin (3) Chronic diastolic heart failure Is this a current diagnosis for this admission?: Yes Plan: -Currently euvolemic -Resumed Lasix, carvedilol, lisinopril (4) Pleural effusion Is this a current diagnosis for this admission?: Yes Plan: -CTA chest showing increased pleural effusion right-sided -We will reassess him tomorrow and see if he will need thoracentesis. He was recently treated for right lower lobe pneumonia and this is probably parapneumonic effusion. -We will hold off on antibiotics for now (5) Obstructive sleep apnea of adult Is this a current diagnosis for this admission?: Yes Plan: -BiPAP at night and as needed (6) Hyperglycemia due to type 2 diabetes mellitus Qualifiers: Diabetes mellitus intermediate card tender insulin use: without intermediate card tender use Qualified Code(s): E11.65 - Type 2 diabetes mellitus with hyperglycemia Is this a current diagnosis for this admission?: Yes Plan: Was on Metformin at 1000 mg twice daily at home -We will put sliding scale insulin -Accu-Cheks -hypoGlycemia protocol (7) Morbid obesity with BMI of 40.0-44.9, adult Is this a current diagnosis for this admission?: Yes Plan: Advised diet and lifestyle modification - Time Time Spent with patient: 25-34 minutes Smoking Cessation Education: 3 to 10 minutes Medications reviewed and adjusted accordingly: Yes Anticipated Discharge Disposition: Home, Self Care Anticipated Discharge Timeframe: TBD
--- NOTE | 2020-07-13 17:56 | EKG REPORT ---
SEVERITY:- ABNORMAL ECG - SINUS TACHYCARDIA ABNRM R PROG, CONSIDER ASMI OR LEAD PLACEMENT BORDERLINE T ABNORMALITIES, INFERIOR LEADS : Confirmed by: Mandy Stauffer 13-Jul-2020 17:56:06
[2020-07-13] MEDS: INSULIN LISPRO 100 UNIT/ML 3 ML VIAL SUBCUT SCH (22:00)
[2020-07-13] MEDS: WARFARIN SODIUM 5 MG TABLET PO SCH (22:44)
[2020-07-13] MEDS: CARVEDILOL 6.25 MG TABLET PO SCH (22:44)
[2020-07-13] MEDS: ASPIRIN 81 MG TABLET, ENT COATED PO SCH (22:44)
[2020-07-13] MEDS: ATORVASTATIN CALCIUM 40 MG TABLET PO SCH (22:45)
[2020-07-14 06:27] LABS: ABSOLUTE BASOPHILS # (AUTO) 0.1 10^3/uL (0.0-0.2); ABSOLUTE EOSINOPHILS # (AUTO) 0.1 10^3/uL (0.0-0.6); ABSOLUTE LYMPHOCYTES (AUTO) 1.5 10^3/uL (0.5-4.7); ABSOLUTE MONOCYTES (AUTO) 1.6 10^3/uL (0.1-1.4); ABSOLUTE NEUT (AUTO) 12.2 10^3/uL (1.7-8.2); BASOPHILS % (AUTO) 0.5 % (0-2); EOSINOPHILS % (AUTO) 0.9 % (0-6); HEMATOCRIT 36.3 % (37.9-51.0); HEMOGLOBIN 12.1 g/dL (13.5-17.0); LYMPHOCYTES % (AUTO) 9.6 % (13-45); MEAN CORPUSCULAR HEMOGLOBIN 27.7 pg (27.0-33.4); MEAN CORPUSCULAR HGB CONC 33.3 g/dL (32.0-36.0); MEAN CORPUSCULAR VOLUME 83 fl (80-97); MONOCYTES % (AUTO) 10.5 % (3-13); PLATELET COUNT 204 10^3/uL (150-450); RED BLOOD COUNT 4.37 10^6/uL (4.35-5.55); RED CELL DISTRIBUTION WIDTH 15.6 % (11.5-14.0); SEGMENTED NEUTROPHILS % (AUTO) 78.5 % (42-78); TOTAL CELLS COUNTED % (AUTO) 100 %; WHITE BLOOD COUNT 15.5 10^3/uL (4.0-10.5)
[2020-07-14 06:38] LABS: INTERNATIONAL RATION (INR) 1.29; PROTHROMBIN TIME 16.3 SEC (11.4-15.4)
[2020-07-14 06:47] LABS: ALBUMIN 3.1 g/dL (3.5-5.0); ALKALINE PHOSPHATASE 139 U/L (38-126); ANION GAP 9 (5-19); ASPARTATE AMINO TRANSFERASE 19 U/L (17-59); BILIRUBIN,DIRECT 0.4 mg/dL (0.0-0.4); BILIRUBIN,TOTAL 1.6 mg/dL (0.2-1.3); BLOOD UREA NITROGEN 16 mg/dL (7-20); CALCIUM 8.3 mg/dL (8.4-10.2); CARBON DIOXIDE 27 mmol/L (22-30); CHLORIDE 97 mmol/L (98-107); GLUCOSE 145 mg/dL (75-110); POTASSIUM 4.5 mmol/L (3.6-5.0)
[2020-07-14] MEDS ORDERED: NORMAL SALINE 500 ML IV PRN ×2 (07:36→08:16)
[2020-07-14] MEDS: INSULIN LISPRO 100 UNIT/ML 3 ML VIAL SUBCUT SCH ×3 (08:14→16:17)
[2020-07-14] MEDS ORDERED: ONDANSETRON 4 MG TAB.RAPDIS PO PRN (09:30)
[2020-07-14] MEDS ORDERED: (PENDING PHARMACY ID) (Lisinopril [Zestril] 40 MG Tablet) PO SCH (10:00)
[2020-07-14] MEDS ORDERED: FUROSEMIDE 40 MG TABLET PO SCH (10:00)
[2020-07-14] MEDS: ENOXAPARIN SODIUM INJ 120 MG/0.8 ML DISP.SYRIN SUBCUT SCH ×2 (11:43→21:36)
[2020-07-14 17:11] LABS: APPEARANCE,URINE CLEAR; BILIRUBIN,URINE NEGATIVE (NEGATIVE); COLOR,URINE YELLOW; GLUCOSE, URINE NEGATIVE (NEGATIVE); KETONES,URINE NEGATIVE (NEGATIVE); LEUKOCYTE ESTERASE,URINE NEGATIVE (NEGATIVE); NITRITE,URINE NEGATIVE (NEGATIVE); PROTEIN,URINE NEGATIVE (NEGATIVE); URINE SPECIFIC GRAVITY 1.008
[2020-07-14 17:12] LABS: ADD MANUAL MICROSCOPIC YES
--- NOTE | 2020-07-14 19:17 | PDOC PROGRESS REPORT ---
Subjective Date:: 07/14/20 Subjective:: JOSÉ ANTONIO CRISOSTOMO is a 45 year old male, PMH of PE January 2019 not on anticoagulation , Diastolic CHF, COPD, RAMON, type 2 DM who came in the ED due to SOB. The patient was just recently discharged at [facility] due to acute hypoxic respiratory failure 2/2 RLL pneumonia and COPD. He completed inpatient abx. He was discharge July 06, 2020. According to him his breathing did not really improve after discharge. He came in today due to shortness of breath and midsternal chest pain. In the ED blood pressure 133/100, pulse rate of 101, respiratory rate 27, O2 sat 94%. X-ray showed small right basilar effusion and atelectasis. CTA chest showed pulmonary embolism involving the right upper lobe and right lower lobe. Right pleural effusion has increased. Airspace disease in the right lung is also increased. WBC count 17.2 troponin 0.0 31, BNP 60. He was initially put on BiPAP and was started on Lovenox therapeutic dose. Patient is hemodynamically stable. Hospitalist service called for further evaluation and management. Per review of previous notes he has a history of pulmonary embolism back in January 2019 but he is not been on any anticoagulation since then. He has a history of poor medication compliance and has been admitted multiple times at least once every month the past few months or shortness of breath. D2 hospital stay. Patient was seen and examined at bedside. He was sitting on a chair on 4L of [place] saturating 95%. He stayed on BIpap most nights. According to him he had 1 episode of hypotension when he was standing up last night which spontaneously resolved. Since then blood pressure has been stable with 100 systolic. Is nontachycardic as well. I discussed with him options for his oral anticoagulations warfarin versus Eliquis. Warfarin is the cheapest but he is unsure if he will be able to have the weekly INR check necessary to monitor he is therapeutic. Eliquis is much more expensive however we can prescribe a 30- day supply for him and [facility] the [facility]. Reason For Visit: PULMONARY EMBOLISM Physical Exam Vital Signs: Temp Pulse Resp BP Pulse Ox 98.6 F 95 18 138/86 H 97 07/14/20 15:03 07/14/20 15:03 07/14/20 15:03 07/14/20 15:03 07/14/20 15:03 Intake & Output 07/13/20 07/14/20 07/15/20 06:59 06:59 06:59 Intake Total 780 500 Output Total 900 Balance -120 500 Weight 111.7 kg General appearance: PRESENT: cooperative, mild distress, obese Head exam: PRESENT: atraumatic, normocephalic Eye exam: PRESENT: EOMI, PERRLA Mouth exam: PRESENT: moist Neck exam: PRESENT: full ROM Respiratory exam: PRESENT: crackles, rales, rhonchi, symmetrical Cardiovascular exam: PRESENT: RRR, +S1, +S2 Pulses: PRESENT: +2 pedal pulses bilateral GI/Abdominal exam: PRESENT: normal bowel sounds, soft. ABSENT: rebound, tenderness Extremities exam: PRESENT: +1 edema Musculoskeletal exam: PRESENT: full ROM Neurological exam: PRESENT: alert, awake, oriented to person, oriented to place, oriented to time, oriented to situation Psychiatric exam: PRESENT: normal mood Skin exam: PRESENT: normal color Results Laboratory Results: 07/14/20 06:10 07/14/20 06:10 07/14/20 07/14/20 07/14/20 06:10 06:10 16:43 WBC 15.5 H RBC 4.37 Hgb 12.1 L Hct 36.3 L MCV 83 MCH 27.7 MCHC 33.3 RDW 15.6 H Plt Count 204 Seg Neutrophils % 78.5 H Sodium 133.2 L Potassium 4.5 Chloride 97 L Carbon Dioxide 27 Anion Gap 9 BUN 16 Creatinine 1.37 H Est GFR ( Amer) > 60 Glucose 145 H Calcium 8.3 L Total Bilirubin 1.6 H AST 19 Alkaline Phosphatase 139 H Total Protein 7.0 Albumin 3.1 L Urine Color YELLOW Urine Appearance CLEAR Urine pH 7.0 Ur Specific [place] 1.008 Urine Protein NEGATIVE Urine Glucose (UA) NEGATIVE Urine Ketones NEGATIVE Urine Blood SMALL H Urine Nitrite NEGATIVE Ur Leukocyte Esterase NEGATIVE Ur Squamous Epith Cells MANY 07/13/20 07:55 Troponin I 0.031 NT-Pro-B Natriuret Pep 60 Impressions: Chest X-Ray 07/13/20 07:42 IMPRESSION: Small right basilar effusion and atelectasis, stable. Chest/Abdomen CTA 07/13/20 08:36 IMPRESSION: 1. PULMONARY EMBOLI PARTICULARLY INVOLVING THE RIGHT UPPER LOBE AND RIGHT LOWER LOBE PULMONARY ARTERIES. 2. RIGHT PLEURAL EFFUSION HAS INCREASED. AIRSPACE DISEASE IN THE RIGHT LUNG HAS ALSO INCREASED. 3. OTHER FINDINGS INCLUDE THYROMEGALY AND BORDERLINE MEDIASTINAL ADENOPATHY. Assessment and Plan - Diagnosis (1) Acute respiratory failure with hypoxia Is this a current diagnosis for this admission?: Yes Plan: - multifactorial cause. From new PE plus hx of COPD, sleep apnea and recent pneumonia with pleural effusion - O2 sat 94% improved with BIpap - CTA positive for PE - also showed increasing right pleural effusion - continue O2 support - COVID test pending - lovenox overlapped with coumadin - duoneb PRN - BIPAP at night (2) Pulmonary embolism Qualifiers: Pulmonary embolism type: single subsegmental (without acute cor pulmonale) Qualified Code(s): I26.93 - Single subsegmental pulmonary embolism without acute cor pulmonale Is this a current diagnosis for this admission?: Yes Plan: - per review of history he has history of pulmonary embolism back in January 2019 but it seems that he has not been taking warfarin. -Recently admitted for right lower lobe pneumonia for 5 days. He was on DVT prophylaxis 10. -CT angio showed PE right upper lobe and right lower lobe. -With his prior history of pulmonary embolism he will need indefinite anticoagulation. Patient has no insurance and warfarin is ideal however the patient stated that he is unsure if he can go have weekly INR checks so Eliquis might be the way to go for him. We will discussed it with discharge planning. -Currently on Lovenox bridging to warfarin -Daily INR check (3) Chronic diastolic heart failure Is this a current diagnosis for this admission?: Yes Plan: -Currently euvolemic -Resumed Lasix, carvedilol, lisinopril (4) Pleural effusion Is this a current diagnosis for this admission?: Yes Plan: -CTA chest showing increased pleural effusion right-sided -IR for thoracentesis -Ceftrixone started (5) Obstructive sleep apnea of adult Is this a current diagnosis for this admission?: Yes Plan: -BiPAP at night and as needed (6) Hyperglycemia due to type 2 diabetes mellitus Qualifiers: Diabetes mellitus rodent exterminator insulin use: without rodent exterminator use Qualified Code(s): E11.65 - Type 2 diabetes mellitus with hyperglycemia Is this a current diagnosis for this admission?: Yes Plan: Was on Metformin at 1000 mg twice daily at home -We will put sliding scale insulin -Accu-Cheks -hypoGlycemia protocol (7) Morbid obesity with BMI of 40.0-44.9, adult Is this a current diagnosis for this admission?: Yes Plan: Advised diet and lifestyle modification - Time Time Spent with patient: 25-34 minutes Medications reviewed and adjusted accordingly: Yes Anticipated Discharge Disposition: Home, Self Care Anticipated Discharge Timeframe: TBD
[2020-07-14] MEDS: FUROSEMIDE 40 MG TABLET PO SCH (21:31)
[2020-07-14] MEDS: CARVEDILOL 6.25 MG TABLET PO SCH (21:32)
[2020-07-14] MEDS: ASPIRIN 81 MG TABLET, ENT COATED PO SCH ×2 (21:32→21:36)
[2020-07-14] MEDS: CEFTRIAXONE 2 GM/D5W RTU 2 GM/50 ML RTUPB IV SCH (21:32)
[2020-07-14] MEDS: ATORVASTATIN CALCIUM 40 MG TABLET PO SCH (21:32)
[2020-07-14] MEDS: WARFARIN SODIUM 5 MG TABLET PO SCH (21:36)
[2020-07-15] MEDS: INSULIN LISPRO 100 UNIT/ML 3 ML VIAL SUBCUT SCH ×5 (01:16→21:51)
[2020-07-15 06:24] LABS: ABSOLUTE EOSINOPHILS # (AUTO) 0.2 10^3/uL (0.0-0.6); ABSOLUTE LYMPHOCYTES (AUTO) 2.3 10^3/uL (0.5-4.7); ABSOLUTE MONOCYTES (AUTO) 1.4 10^3/uL (0.1-1.4); ABSOLUTE NEUT (AUTO) 12.5 10^3/uL (1.7-8.2); BASOPHILS % (AUTO) 0.3 % (0-2); EOSINOPHILS % (AUTO) 1.2 % (0-6); HEMATOCRIT 36.6 % (37.9-51.0); HEMOGLOBIN 12.5 g/dL (13.5-17.0); LYMPHOCYTES % (AUTO) 13.9 % (13-45); MEAN CORPUSCULAR HEMOGLOBIN 28.1 pg (27.0-33.4); MEAN CORPUSCULAR HGB CONC 34.1 g/dL (32.0-36.0); MEAN CORPUSCULAR VOLUME 82 fl (80-97); MONOCYTES % (AUTO) 8.6 % (3-13); PLATELET COUNT 229 10^3/uL (150-450); RED BLOOD COUNT 4.44 10^6/uL (4.35-5.55); RED CELL DISTRIBUTION WIDTH 15.3 % (11.5-14.0); TOTAL CELLS COUNTED % (AUTO) 100 %; WHITE BLOOD COUNT 16.4 10^3/uL (4.0-10.5)
[2020-07-15 06:33] LABS: ALBUMIN 3.5 g/dL (3.5-5.0); ALKALINE PHOSPHATASE 171 U/L (38-126); ANION GAP 10 (5-19); ASPARTATE AMINO TRANSFERASE 22 U/L (17-59); BILIRUBIN,DIRECT 0.3 mg/dL (0.0-0.4); BILIRUBIN,TOTAL 1.2 mg/dL (0.2-1.3); BLOOD UREA NITROGEN 14 mg/dL (7-20); CALCIUM 8.9 mg/dL (8.4-10.2); CARBON DIOXIDE 26 mmol/L (22-30); CHLORIDE 98 mmol/L (98-107); GLUCOSE 110 mg/dL (75-110); POTASSIUM 4.8 mmol/L (3.6-5.0); TOTAL PROTEIN 7.9 g/dL (6.3-8.2)
[2020-07-15 06:35] LABS: INTERNATIONAL RATION (INR) 1.14; PROTHROMBIN TIME 14.8 SEC (11.4-15.4)
[2020-07-15] MEDS: CARVEDILOL 6.25 MG TABLET PO SCH ×2 (11:07→21:51)
[2020-07-15] MEDS: ENOXAPARIN SODIUM INJ 120 MG/0.8 ML DISP.SYRIN SUBCUT SCH (11:08)
[2020-07-15] MEDS: LISINOPRIL 10 MG TABLET PO SCH (11:08)
[2020-07-15] MEDS: FUROSEMIDE 40 MG TABLET PO SCH (11:08)
--- NOTE | 2020-07-15 14:30 | RADIOLOGY REPORT (SQ) ---
EXAM DESCRIPTION: CHEST SINGLE VIEW IMAGES COMPLETED DATE/TIME: 07/15/2020 2:07 pm REASON FOR STUDY: POST THORACENTESIS COMPARISON: 07/13/2020. EXAM PARAMETERS: NUMBER OF VIEWS: One view. TECHNIQUE: Single frontal radiographic view of the chest acquired. RADIATION DOSE: NA LIMITATIONS: None. FINDINGS: LUNGS AND PLEURA: Right pleural effusion and right basilar density. No pneumothorax. Lef t lung clear. MEDIASTINUM AND HILAR STRUCTURES: No masses. Contour normal. HEART AND VASCULAR STRUCTURES: Mild cardiomegaly. BONES: No acute findings. Degenerative changes in the spine and shoulders. HARDWARE: None in the chest. OTHER: No other significant finding. IMPRESSION: RIGHT PLEURAL EFFUSION AND RIGHT BASILAR DENSITY. NO PNEUMOTHORAX FOLLOWING THORACENTES IS. TECHNICAL DOCUMENTATION: JOB ID: [id number] [employer]- All Rights Reserved Reading location - IP/workstation name: [email or web address]
--- NOTE | 2020-07-15 15:03 | RADIOLOGY REPORT (SQ) ---
EXAM DESCRIPTION: U/S THORACENTESIS WITH IMAGING IMAGES COMPLETED DATE/TIME: 07/15/2020 2:41 pm REASON FOR STUDY: increased pleural effusion COMPARISON: None. RADIATION DOSE: None LIMITATIONS: None. PROCEDURE: Procedure, risks, benefit, and alternative explained to patient who then gave written con sent. The posterior right chest wall was marked using Preston A guidance. A time-out was called for co rrect marking verification. Chest prepped and draped using sterile technique. Local anesthesia achie rodney using 8 ml of 1% lidocaine injection. A 6fr Safe-T- Centesis set was introduced into the right p leural space. Fluid was aspirated. The catheter was removed and the entry site was covered with janiya rile bandage. No immediate complications noted. Images acquired during the procedure were stored on PACS. FINDINGS: ENTRY SITE: posterior right chest. FLUID VOLUME: 300 mL FLUID ANALYSIS: Dark josé luis colored fluid OTHER: Fluid sent to the lab for testing. IMPRESSION: SUCCESSFUL THORACENTESIS USING ULTRASOUND GUIDANCE. COMMENT: Patient medication list reviewed: Yes- Quality ID# [id number]:Eligible professional attests to doc umenting in the medical record they obtained, updated, or reviewed the patient's current medications. TECHNICAL DOCUMENTATION: JOB ID: [id number] 2010 [employer]- All Rights Reserved Reading location - IP/workstation name: [email or web address] [id number]
--- NOTE | 2020-07-15 16:21 | RADIOLOGY REPORT (SQ) ---
EXAM DESCRIPTION: CHEST SINGLE VIEW IMAGES COMPLETED DATE/TIME: 07/15/2020 4:08 pm REASON FOR STUDY: POST THORACENTESIS COMPARISON: None. EXAM PARAMETERS: NUMBER OF VIEWS: One view. TECHNIQUE: Single frontal radiographic view of the chest acquired. RADIATION DOSE: NA LIMITATIONS: None. FINDINGS: LUNGS AND PLEURA: Small right pleural effusion with opacification in the right base. No p neumothorax. MEDIASTINUM AND HILAR STRUCTURES: No masses. Contour normal. HEART AND VASCULAR STRUCTURES: Cardiomegaly. No emelyn pulmonary edema. BONES: No acute findings. HARDWARE: None in the chest. OTHER: No other significant finding. IMPRESSION: No pneumothorax. Right pleural effusion. Cannot exclude airspace disease in a right lo wer lobe, atelectasis versus pneumonia. Cardiomegaly without pulmonary edema. TECHNICAL DOCUMENTATION: JOB ID: [id number] 2010 [employer]- All Rights Reserved Reading location - IP/workstation name: [email or web address]
[2020-07-15] MEDS: APIXABAN 5 MG TABLET PO SCH (18:09)
[2020-07-15] MEDS: ACETAMINOPHEN 325 MG TABLET PO PRN (18:09)
[2020-07-15] MEDS: CEFTRIAXONE 2 GM/D5W RTU 2 GM/50 ML RTUPB IV SCH (18:10)
[2020-07-15] MEDS ORDERED: PIPERACILLIN/TAZOBACTAM 3.375 GM VIAL IV SCH (21:15)
--- NOTE | 2020-07-15 21:20 | PDOC PROGRESS REPORT ---
Subjective Date:: 07/15/20 Reason For Visit: PULMONARY EMBOLISM Physical Exam Vital Signs: Temp Pulse Resp BP Pulse Ox 99.4 F 87 17 101/60 99 07/15/20 20:38 07/15/20 19:15 07/15/20 19:15 07/15/20 19:15 07/15/20 19:15 Intake & Output 07/14/20 07/15/20 07/16/20 06:59 06:59 06:59 Intake Total 780 1150 1110 Output Total 900 1150 600 Balance -120 0 510 Weight 111.7 kg 111.7 kg General appearance: PRESENT: cooperative, mild distress Head exam: PRESENT: atraumatic, normocephalic Eye exam: PRESENT: EOMI, PERRLA Mouth exam: PRESENT: moist Neck exam: PRESENT: full ROM Respiratory exam: PRESENT: rales, symmetrical, wheezes Cardiovascular exam: PRESENT: RRR, +S1, +S2 Pulses: PRESENT: +2 pedal pulses bilateral GI/Abdominal exam: PRESENT: normal bowel sounds, soft. ABSENT: rebound, tend erness Extremities exam: PRESENT: full ROM Musculoskeletal exam: PRESENT: full ROM Neurological exam: PRESENT: alert, awake, oriented to person, oriented to place, oriented to time, oriented to situation Psychiatric exam: PRESENT: normal mood Skin exam: PRESENT: normal color Results Laboratory Results: 07/15/20 05:12 07/15/20 05:12 07/15/20 07/15/20 07/15/20 05:12 05:12 05:12 WBC 16.4 H RBC 4.44 Hgb 12.5 L Hct 36.6 L MCV 82 MCH 28.1 MCHC 34.1 RDW 15.3 H Plt Count 229 Seg Neutrophils % 76.0 Sodium 133.8 L Potassium 4.8 Chloride 98 Carbon Dioxide 26 Anion Gap 10 BUN 14 Creatinine 0.84 Est GFR ( Amer) > 60 Glucose 110 Calcium 8.9 Magnesium Total Bilirubin 1.2 AST 22 Alkaline Phosphatase 171 H Total Protein 7.9 Cancelled Albumin 3.5 07/15/20 05:12 WBC RBC Hgb Hct MCV MCH MCHC RDW Plt Count Seg Neutrophils % Sodium Potassium Chloride Carbon Dioxide Anion Gap BUN Creatinine Est GFR ( Amer) Glucose Calcium Magnesium 1.9 Total Bilirubin AST Alkaline Phosphatase Total Protein Albumin 07/13/20 07/15/20 07/15/20 07:55 05:12 16:28 Troponin I 0.031 0.018 0.019 NT-Pro-B Natriuret Pep 60 Impressions: Chest/Abdomen CTA 07/13/20 08:36 IMPRESSION: 1. PULMONARY EMBOLI PARTICULARLY INVOLVING THE RIGHT UPPER LOBE AND RIGHT LOWER LOBE PULMONARY ARTERIES. 2. RIGHT PLEURAL EFFUSION HAS INCREASED. AIRSPACE DISEASE IN THE RIGHT LUNG HAS ALSO INCREASED. 3. OTHER FINDINGS INCLUDE THYROMEGALY AND BORDERLINE MEDIASTINAL ADENOPATHY. Thoracentesis Ultrasound 07/15/20 00:00 IMPRESSION: SUCCESSFUL THORACENTESIS USING ULTRASOUND GUIDANCE. Chest X-Ray 07/15/20 15:54 IMPRESSION: No pneumothorax. Right pleural effusion. Cannot exclude airspace disease in a right lower lobe, atelectasis versus pneumonia. Cardiomegaly without pulmonary edema. Assessment and Plan - Diagnosis (1) Acute respiratory failure with hypoxia Is this a current diagnosis for this admission?: Yes Plan: - multifactorial cause. From new PE plus hx of COPD, sleep apnea and recent p neumonia with pleural effusion - O2 sat 94% improved with BIpap - CTA positive for PE - also showed increasing right pleural effusion - continue O2 support - COVID test negative - switched to eliquis - duoneb scheduled - BIPAP at night (2) Pulmonary embolism Qualifiers: Pulmonary embolism type: single subsegmental (without acute cor pulmonale) Qualified Code(s): I26.93 - Single subsegmental pulmonary embolism without acute cor pulmonale Is this a current diagnosis for this admission?: Yes Plan: - per review of history he has history of pulmonary embolism back in January 2019 but it seems that he has not been taking warfarin. -Recently admitted for right lower lobe pneumonia for 5 days. He was on DVT prophylaxis 10. -CT angio showed PE right upper lobe and right lower lobe. -With his prior history of pulmonary embolism he will need indefinite anticoagulation. Patient has no insurance and warfarin is ideal however the patient stated that he is unsure if he can go have weekly INR checks so Eliquis might be the way to go for him. We will discussed it with discharge planning. -switched to eliquis - will order echo to assess for right heart strain as he has episodes of hypotension -Daily INR check (3) Chronic diastolic heart failure Is this a current diagnosis for this admission?: Yes Plan: -Currently euvolemic -Resumed Lasix, carvedilol, lisinopril (4) Pleural effusion Is this a current diagnosis for this admission?: Yes Plan: -CTA chest showing increased pleural effusion right-sided -s/p thoracentesis drained 350 ml bloody fluid - awaiting pleural fluid analysis - abx switched to zosyn (5) Obstructive sleep apnea of adult Is this a current diagnosis for this admission?: Yes Plan: -BiPAP at night and as needed (6) Hyperglycemia due to type 2 diabetes mellitus Qualifiers: Diabetes mellitus jail insulin use: without jail use Qualified Code(s): E11.65 - Type 2 diabetes mellitus with hyperglycemia Is this a current diagnosis for this admission?: Yes Plan: Was on Metformin at 1000 mg twice daily at home -We will put sliding scale insulin -Accu-Cheks -hypoGlycemia protocol (7) Morbid obesity with BMI of 40.0-44.9, adult Is this a current diagnosis for this admission?: Yes Plan: Advised diet and lifestyle modification - Time Time Spent with patient: 25-34 minutes Medications reviewed and adjusted accordingly: Yes Anticipated Discharge Disposition: Home, Self Care Anticipated Discharge Timeframe: TBD
[2020-07-15] MEDS: ATORVASTATIN CALCIUM 40 MG TABLET PO SCH (21:51)
[2020-07-15] MEDS: ASPIRIN 81 MG TABLET, ENT COATED PO SCH (21:51)
[2020-07-15] MEDS: PIPERACILLIN SODIUM/TAZOBACTAM 3.375 GM in NORMAL SALINE 100 ML IV SCH (22:07)
[2020-07-16] MEDS: PIPERACILLIN SODIUM/TAZOBACTAM 3.375 GM in NORMAL SALINE 100 ML IV SCH ×3 (05:28→21:22)
[2020-07-16] MEDS: ACETAMINOPHEN 325 MG TABLET PO PRN (05:29)
[2020-07-16] MEDS ORDERED: IPRATROPIUM/ALBUTEROL 0.5-2.5 MG/3 ML AMPUL NEB SCH (06:00)
[2020-07-16 06:57] LABS: ABSOLUTE BASOPHILS # (AUTO) 0.1 10^3/uL (0.0-0.2); ABSOLUTE EOSINOPHILS # (AUTO) 0.2 10^3/uL (0.0-0.6); ABSOLUTE LYMPHOCYTES (AUTO) 1.7 10^3/uL (0.5-4.7); ABSOLUTE MONOCYTES (AUTO) 1.4 10^3/uL (0.1-1.4); ABSOLUTE NEUT (AUTO) 12.5 10^3/uL (1.7-8.2); BASOPHILS % (AUTO) 0.4 % (0-2); EOSINOPHILS % (AUTO) 1.3 % (0-6); HEMATOCRIT 34.3 % (37.9-51.0); HEMOGLOBIN 11.3 g/dL (13.5-17.0); LYMPHOCYTES % (AUTO) 10.6 % (13-45); MEAN CORPUSCULAR HEMOGLOBIN 27.4 pg (27.0-33.4); MEAN CORPUSCULAR VOLUME 83 fl (80-97); PLATELET COUNT 227 10^3/uL (150-450); RED BLOOD COUNT 4.13 10^6/uL (4.35-5.55); RED CELL DISTRIBUTION WIDTH 15.5 % (11.5-14.0); SEGMENTED NEUTROPHILS % (AUTO) 78.7 % (42-78); TOTAL CELLS COUNTED % (AUTO) 100 %; WHITE BLOOD COUNT 15.9 10^3/uL (4.0-10.5)
[2020-07-16 07:03] LABS: INTERNATIONAL RATION (INR) 1.31; PROTHROMBIN TIME 16.5 SEC (11.4-15.4)
[2020-07-16 07:26] LABS: ALBUMIN 3.2 g/dL (3.5-5.0); ALKALINE PHOSPHATASE 168 U/L (38-126); ANION GAP 9 (5-19); ASPARTATE AMINO TRANSFERASE 20 U/L (17-59); BILIRUBIN,DIRECT 0.3 mg/dL (0.0-0.4); BILIRUBIN,TOTAL 0.8 mg/dL (0.2-1.3); BLOOD UREA NITROGEN 21 mg/dL (7-20); CALCIUM 8.8 mg/dL (8.4-10.2); CARBON DIOXIDE 27 mmol/L (22-30); CHLORIDE 98 mmol/L (98-107); GLUCOSE 115 mg/dL (75-110); POTASSIUM 4.4 mmol/L (3.6-5.0); TOTAL PROTEIN 7.3 g/dL (6.3-8.2)
[2020-07-16] MEDS: IPRATROPIUM/ALBUTEROL 0.5-2.5 MG/3 ML AMPUL NEB SCH ×3 (08:05→20:01)
[2020-07-16] MEDS: INSULIN LISPRO 100 UNIT/ML 3 ML VIAL SUBCUT SCH ×4 (08:43→21:18)
[2020-07-16] MEDS: LISINOPRIL 10 MG TABLET PO SCH (09:39)
[2020-07-16] MEDS: CARVEDILOL 6.25 MG TABLET PO SCH ×2 (09:39→21:22)
[2020-07-16] MEDS: FUROSEMIDE 40 MG TABLET PO SCH (09:40)
[2020-07-16] MEDS: APIXABAN 5 MG TABLET PO SCH ×2 (09:40→18:54)
[2020-07-16] MEDS ORDERED: AZITHROMYCIN 250 MG TABLET PO SCH (10:00)
[2020-07-16 17:08] LABS: HEMATOCRIT 35.6 % (37.9-51.0); MEAN CORPUSCULAR HEMOGLOBIN 27.9 pg (27.0-33.4); MEAN CORPUSCULAR HGB CONC 33.9 g/dL (32.0-36.0); MEAN CORPUSCULAR VOLUME 82 fl (80-97); PLATELET COUNT 218 10^3/uL (150-450); RED BLOOD COUNT 4.32 10^6/uL (4.35-5.55); RED CELL DISTRIBUTION WIDTH 15.3 % (11.5-14.0); WHITE BLOOD COUNT 13.9 10^3/uL (4.0-10.5)
--- NOTE | 2020-07-16 17:25 | PDOC PROGRESS REPORT ---
Subjective Date:: 07/16/20 Subjective:: JOSÉ ANTONIO CRISOSTOMO is a 45 year old male, PMH of PE January 2019 not on anticoagulation , Diastolic CHF, COPD, RAMON, type 2 DM who came in the ED due to SOB. The patient was just recently discharged at [facility] due to acute hypoxic respiratory failure 2/2 RLL pneumonia and COPD. He completed inpatient abx. He was discharge July 06, 2020. According to him his breathing did not really improve after discharge. He came in today due to shortness of breath and midsternal chest pain. In the ED blood pressure 133/100, pulse rate of 101, respiratory rate 27, O2 sat 94%. X-ray showed small right basilar effusion and atelectasis. CTA chest showed pulmonary embolism involving the right upper lobe and right lower lobe. Right pleural effusion has increased. Airspace disease in the right lung is also increased. WBC count 17.2 troponin 0.0 31, BNP 60. He was initially put on BiPAP and was started on Lovenox therapeutic dose. Patient is hemodynamically stable. Hospitalist service called for further evaluation and management. Per review of previous notes he has a history of pulmonary embolism back in January 2019 but he is not been on any anticoagulation since then. He has a history of poor medication compliance and has been admitted multiple times at least once every month the past few months or shortness of breath. D2 hospital stay. Patient was seen and examined at bedside. He was sitting on a chair on 4L of NC saturating 95%. He stayed on BIpap most nights. According to him he had 1 episode of hypotension when he was standing up last night which spontaneously resolved. Since then blood pressure has been stable with 100 systolic. Is nontachycardic as well. I discussed with him options for his oral anticoagulations warfarin versus Eliquis. Warfarin is the cheapest but he is unsure if he will be able to have the weekly INR check necessary to monitor he is therapeutic. Eliquis is much more expensive however we can prescribe a 30- day supply for him and [facility] the [facility]. D3 Hospital stay. patient was seen and examined at bedside. Reports that there is a small improvement on his breathing. he remains afebrile, no chest pain. Appetite good. 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 I have switched his antibiotics to zosyn since he was recently discharged from the hospital. Reason For Visit: PULMONARY EMBOLISM Physical Exam Vital Signs: Temp Pulse Resp BP Pulse Ox 98.1 F 94 22 H 96/56 L 94 07/16/20 11:16 07/16/20 14:00 07/16/20 13:38 07/16/20 11:16 07/16/20 13:38 Intake & Output 07/15/20 07/16/20 07/17/20 06:59 06:59 06:59 Intake Total 1150 1370 360 Output Total 1150 600 Balance 0 770 360 Weight 111.7 kg 108.7 kg General appearance: PRESENT: cooperative, mild distress, obese Head exam: PRESENT: atraumatic, normocephalic Eye exam: PRESENT: EOMI, PERRLA Mouth exam: PRESENT: moist Neck exam: PRESENT: full ROM Respiratory exam: PRESENT: rhonchi, symmetrical. ABSENT: tachypnea, wheezes Cardiovascular exam: PRESENT: RRR, +S1, +S2 GI/Abdominal exam: PRESENT: normal bowel sounds, soft. ABSENT: rebound, tenderness Extremities exam: PRESENT: full ROM Musculoskeletal exam: PRESENT: full ROM Neurological exam: PRESENT: alert, awake, oriented to person, oriented to place, oriented to time, oriented to situation Psychiatric exam: PRESENT: normal mood Skin exam: PRESENT: normal color Results Laboratory Results: 07/16/20 16:51 07/16/20 06:13 07/16/20 07/16/20 07/16/20 06:13 06:13 16:51 WBC 15.9 H 13.9 H RBC 4.13 L 4.32 L Hgb 11.3 L 12.0 L Hct 34.3 L 35.6 L MCV 83 82 MCH 27.4 27.9 MCHC 33.0 33.9 RDW 15.5 H 15.3 H Plt Count 227 218 Seg Neutrophils % 78.7 H Sodium 133.7 L Potassium 4.4 Chloride 98 Carbon Dioxide 27 Anion Gap 9 BUN 21 H Creatinine 1.02 Est GFR ( Amer) > 60 Glucose 115 H Calcium 8.8 Total Bilirubin 0.8 AST 20 Alkaline Phosphatase 168 H Total Protein 7.3 Albumin 3.2 L 07/13/20 07/15/20 07/15/20 07:55 05:12 16:28 Troponin I 0.031 0.018 0.019 NT-Pro-B Natriuret Pep 60 Impressions: Chest/Abdomen CTA 07/13/20 08:36 IMPRESSION: 1. PULMONARY EMBOLI PARTICULARLY INVOLVING THE RIGHT UPPER LOBE AND RIGHT LOWER LOBE PULMONARY ARTERIES. 2. RIGHT PLEURAL EFFUSION HAS INCREASED. AIRSPACE DISEASE IN THE RIGHT LUNG HAS ALSO INCREASED. 3. OTHER FINDINGS INCLUDE THYROMEGALY AND BORDERLINE MEDIASTINAL ADENOPATHY. Thoracentesis Ultrasound 07/15/20 00:00 IMPRESSION: SUCCESSFUL THORACENTESIS USING ULTRASOUND GUIDANCE. Chest X-Ray 07/15/20 15:54 IMPRESSION: No pneumothorax. Right pleural effusion. Cannot exclude airspace disease in a right lower lobe, atelectasis versus pneumonia. Cardiomegaly without pulmonary edema. Assessment and Plan - Diagnosis (1) Acute respiratory failure with hypoxia Is this a current diagnosis for this admission?: Yes Plan: - multifactorial cause. From new PE plus hx of COPD, sleep apnea and recent pneumonia with pleural effusion - O2 sat 94% improved with BIpap - CTA positive for PE - also showed increasing right pleural effusion, s/p thoracentesis 07/15/20 drained 300 ml bloody fluid which was sent for analysis. - continue O2 support - COVID test negative - switched to eliquis - duoneb scheduled - BIPAP at night (2) Pulmonary embolism Qualifiers: Pulmonary embolism type: single subsegmental (without acute cor pulmonale) Qualified Code(s): I26.93 - Single subsegmental pulmonary embolism without acute cor pulmonale Is this a current diagnosis for this admission?: Yes Plan: - per review of history he has history of pulmonary embolism back in January 2019 but it seems that he has not been taking warfarin. -Recently admitted for right lower lobe pneumonia for 5 days. He was on DVT prophylaxis 10. -CT angio showed PE right upper lobe and right lower lobe. -With his prior history of pulmonary embolism he will need indefinite anticoagulation. Patient has no insurance and warfarin is ideal however the patient stated that he is unsure if he can go have weekly INR checks so Eliquis might be the way to go for him. We will discussed it with discharge planning. -switched to eliquis - awaiting repeat echo (3) Chronic diastolic heart failure Is this a current diagnosis for this admission?: Yes Plan: -Currently euvolemic -Resumed Lasix, carvedilol, lisinopril (4) Pleural effusion Is this a current diagnosis for this admission?: Yes Plan: -CTA chest showing increased pleural effusion right-sided -s/p thoracentesis drained 350 ml bloody fluid - awaiting pleural fluid analysis - abx switched to zosyn (5) Obstructive sleep apnea of adult Is this a current diagnosis for this admission?: Yes Plan: -BiPAP at night and as needed (6) Hyperglycemia due to type 2 diabetes mellitus 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: 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: without detention use Qualified Code(s): E11.65 - Type 2 diabetes mellitus with hyperglycemia Is this a current diagnosis for this admission?: Yes Plan: Was on Metformin at 1000 mg twice daily at home -We will put sliding scale insulin -Accu-Cheks -hypoGlycemia protocol (7) Morbid obesity with BMI of 40.0-44.9, adult Is this a current diagnosis for this admission?: Yes Plan: Advised diet and lifestyle modification - Time Time Spent with patient: 25-34 minutes Medications reviewed and adjusted accordingly: Yes Anticipated Discharge Disposition: Home, Self Care Anticipated Discharge Timeframe: TBD
[2020-07-16 18:21] LABS: APPEARANCE,URINE CLEAR; BILIRUBIN,URINE NEGATIVE (NEGATIVE); COLOR,URINE YELLOW; GLUCOSE, URINE NEGATIVE (NEGATIVE); KETONES,URINE NEGATIVE (NEGATIVE); LEUKOCYTE ESTERASE,URINE NEGATIVE (NEGATIVE); NITRITE,URINE NEGATIVE (NEGATIVE); PROTEIN,URINE NEGATIVE (NEGATIVE); URINE SPECIFIC GRAVITY 1.011
[2020-07-16] MEDS: ASPIRIN 81 MG TABLET, ENT COATED PO SCH (21:22)
[2020-07-16] MEDS: ATORVASTATIN CALCIUM 40 MG TABLET PO SCH (21:22)
--- NOTE | 2020-07-16 22:46 | XCELERA REPORT ---
[address] [address] Transthoracic Echocardiogram Report Name: JOSÉ ANTONIO CRISOSTOMO Age: 45 yrs Gender: Male : 1975 Patient Status: Inpatient Patient Location: [facility]^A Study Date: 07/16/2020 11:34 AM Height: 64 in Weight: 246 lb BSA: 2.1 m2 Procedure: A complete two-dimensional transthoracic echocardiogram was performed (2D, M-mode, spectral and color flow Doppler). The study was technically good with many images being of high quality. Reason For Study: recent PE Ordering Physician: MAGDALENO VIVAR Performed By: Rohan Lopez Interpretation Summary FINDINGS: LEFT VENTRICLE: LV Systolic function: LVEF is felt to be within normal limits. Best estimate is approximately LVEF is 60 to 65%. LV Diastolic Function: No diastolic dysfunction noted. Wall motion: No definite regional wall motion abnormalities are noted. Left ventricular chamber size: is within normal limit. Left ventricular wall thickness: wnl. RIGHT VENTRICLE: RV systolic function: is felt to be within normal limit. Right Ventricle Size: is within normal limits. LEFT ATRIUM size: is within normal limit. RIGHT ATRIUM size: is within normal limit. INTER ATRIAL SEPTUM: No definite atrial septal defect noted however a small PFO could be missed. AORTIC ROOT: seems to be within normal limits. ASCENDING AORTA: is not well visualized. INFERIOR VENA CAVA: seems WNL. VALVES: MITRAL VALVE: Leaflets are mildly thickened. Mobility seems to be within normal limits. Mitral Regurgitation: Trace mitral regurgitation is noted. Mitral Stenosis: No mitral stenosis noted. Mitral valve prolapse: none noted. AORTIC VALVE: seems to be trileaflet with mild thickening but adequate excursion. Aortic stenosis: No aortic stenosis noted. Aortic regurgitation: No aortic incompetence noted. TRICUSPID VALVE: mobility and structures within normal limit. Tricuspid stenosis: no tricuspid stenosis noted. Tricuspid regurgitation: Trace tricuspid regurgitation noted. Estimated RVSP: upper limit of normal. PULMONARY VALVE: was not well visualized but no significant abnormalities suspected. Pulmonary stenosis: no pulmonary stenosis noted. Pulmonary regurgitation: no significant pulmonary regurgitation noted. MASSES AND THROMBUS: No definite intracardiac thrombus or masses are noted. PERICARDIUM: No pericardial effusion was noted. IMPRESSION: 1. Normal LVEF. 2. Normal chamber sizes noted. No LVH noted. 3. No Diastolic Dysfunction noted. 4. No significant valvular stenosis or regurgitation noted. MMode/2D Measurements & Calculations RVDd: 2.7 cm LVIDd: 5.1 cm FS: 29.5 % Ao root diam: 3.3 cm IVSd: 1.0 cm LVIDs: 3.6 cm EDV(Teich): 125.0 ml Ao root area: 8.5 cm2 LVPWd: 1.1 cm ESV(Teich): 54.8 ml LA dimension: 4.0 cm EF(Teich): 56.1 % Doppler Measurements & Calculations PA V2 max: 89.3 cm/sec TR max juan: 213.3 cm/sec PA max P.2 mmHg TR max P.2 mmHg : MAGDALENO VIVAR Shyamal
[2020-07-17] MEDS: PIPERACILLIN SODIUM/TAZOBACTAM 3.375 GM in NORMAL SALINE 100 ML IV SCH ×3 (05:18→21:33)
[2020-07-17 06:44] LABS: INTERNATIONAL RATION (INR) 1.25; PROTHROMBIN TIME 15.9 SEC (11.4-15.4)
[2020-07-17] MEDS: IPRATROPIUM/ALBUTEROL 0.5-2.5 MG/3 ML AMPUL NEB SCH ×3 (07:52→20:54)
[2020-07-17] MEDS: INSULIN LISPRO 100 UNIT/ML 3 ML VIAL SUBCUT SCH ×4 (09:25→22:06)
[2020-07-17] MEDS: CARVEDILOL 6.25 MG TABLET PO SCH ×2 (09:29→21:33)
[2020-07-17] MEDS: FUROSEMIDE 40 MG TABLET PO SCH (09:29)
[2020-07-17] MEDS: LISINOPRIL 10 MG TABLET PO SCH (09:29)
[2020-07-17] MEDS: APIXABAN 5 MG TABLET PO SCH ×2 (09:29→17:46)
--- NOTE | 2020-07-17 16:14 | PDOC PROGRESS REPORT ---
Subjective Date:: 07/17/20 Subjective:: JOSÉ ANTONIO CRISOSTOMO is a 45 year old male, PMH of PE January 2019 not on anticoagulation , Diastolic CHF, COPD, RAMON, type 2 DM who came in the ED due to SOB. The patient was just recently discharged at [facility] due to acute hypoxic respiratory failure 2/2 RLL pneumonia and COPD. He completed inpatient abx. He was discharge July 06, 2020. According to him his breathing did not really improve after discharge. He came in today due to shortness of breath and midsternal chest pain. In the ED blood pressure 133/100, pulse rate of 101, respiratory rate 27, O2 sat 94%. X-ray showed small right basilar effusion and atelectasis. CTA chest showed pulmonary embolism involving the right upper lobe and right lower lobe. Right pleural effusion has increased. Airspace disease in the right lung is also increased. WBC count 17.2 troponin 0.0 31, BNP 60. He was initially put on BiPAP and was started on Lovenox therapeutic dose. Patient is hemodynamically stable. Hospitalist service called for further evaluation and management. Per review of previous notes he has a history of pulmonary embolism back in January 2019 but he is not been on any anticoagulation since then. He has a history of poor medication compliance and has been admitted multiple times at least once every month the past few months or shortness of breath. D2 hospital stay. Patient was seen and examined at bedside. He was sitting on a chair on 4L of [place] saturating 95%. He stayed on BIpap most nights. According to him he had 1 episode of hypotension when he was standing up last night which spontaneously resolved. Since then blood pressure has been stable with 100 systolic. Is nontachycardic as well. I discussed with him options for his oral anticoagulations warfarin versus Eliquis. Warfarin is the cheapest but he is unsure if he will be able to have the weekly INR check necessary to monitor he is therapeutic. Eliquis is much more expensive however we can prescribe a 30- day supply for him and [facility] the [facility]. D3 Hospital stay. patient was seen and examined at bedside. Reports that there is a small improvement on his breathing. he remains afebrile, no chest pain. Appetite good. 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 I have switched his antibiotics to zosyn since he was recently discharged from the hospital. D4 hospital stay. Patient was seen and examined at bedside. Reports that his breathing is coming along but still not back to baseline. He was assessed by PT and determines he does not need PT. Results of his pleural fluid analysis is still pending but cultures and sensitivity are not growing anything. Reason For Visit: PULMONARY EMBOLISM Physical Exam Vital Signs: Temp Pulse Resp BP Pulse Ox 99.4 F 95 18 107/63 93 07/17/20 15:19 07/17/20 15:19 07/17/20 15:19 07/17/20 15:19 07/17/20 15:19 Intake & Output 07/16/20 07/17/20 07/18/20 06:59 06:59 06:59 Intake Total 1370 1561 Output Total 600 400 Balance 770 1161 Weight 108.7 kg 108.7 kg General appearance: PRESENT: cooperative, mild distress Head exam: PRESENT: atraumatic, normocephalic Eye exam: PRESENT: EOMI, PERRLA Mouth exam: PRESENT: moist Neck exam: PRESENT: full ROM Respiratory exam: PRESENT: decreased breath sounds, rhonchi, symmetrical, unlabored Cardiovascular exam: PRESENT: RRR, +S1, +S2 Pulses: PRESENT: +2 pedal pulses bilateral GI/Abdominal exam: PRESENT: normal bowel sounds, soft. ABSENT: rebound, tenderness Extremities exam: PRESENT: full ROM Musculoskeletal exam: PRESENT: full ROM Neurological exam: PRESENT: alert, awake, oriented to person, oriented to place, oriented to time, oriented to situation Psychiatric exam: PRESENT: normal mood Skin exam: PRESENT: normal color Results Laboratory Results: 07/16/20 16:51 07/16/20 06:13 07/16/20 07/16/20 16:51 17:50 WBC 13.9 H RBC 4.32 L Hgb 12.0 L Hct 35.6 L MCV 82 MCH 27.9 MCHC 33.9 RDW 15.3 H Plt Count 218 Urine Color YELLOW Urine Appearance CLEAR Urine pH 6.0 Ur Specific [place] 1.011 Urine Protein NEGATIVE Urine Glucose (UA) NEGATIVE Urine Ketones NEGATIVE Urine Blood SMALL H Urine Nitrite NEGATIVE Ur Leukocyte Esterase NEGATIVE Urine WBC (Auto) 1 Urine RBC (Auto) 1 07/15/20 13:51 Chest - Right Side Gram Stain - Final 07/13/20 07/15/20 07/15/20 07:55 05:12 16:28 Troponin I 0.031 0.018 0.019 NT-Pro-B Natriuret Pep 60 Impressions: Chest/Abdomen CTA 07/13/20 08:36 IMPRESSION: 1. PULMONARY EMBOLI PARTICULARLY INVOLVING THE RIGHT UPPER LOBE AND RIGHT LOWER LOBE PULMONARY ARTERIES. 2. RIGHT PLEURAL EFFUSION HAS INCREASED. AIRSPACE DISEASE IN THE RIGHT LUNG HAS ALSO INCREASED. 3. OTHER FINDINGS INCLUDE THYROMEGALY AND BORDERLINE MEDIASTINAL ADENOPATHY. Thoracentesis Ultrasound 07/15/20 00:00 IMPRESSION: SUCCESSFUL THORACENTESIS USING ULTRASOUND GUIDANCE. Chest X-Ray 07/15/20 15:54 IMPRESSION: No pneumothorax. Right pleural effusion. Cannot exclude airspace disease in a right lower lobe, atelectasis versus pneumonia. Cardiomegaly without pulmonary edema. Assessment and Plan - Diagnosis (1) Acute respiratory failure with hypoxia Is this a current diagnosis for this admission?: Yes Plan: - multifactorial cause. From new PE plus hx of COPD, sleep apnea and recent pneumonia with pleural effusion - O2 sat 94% improved with BIpap - CTA positive for PE - also showed increasing right pleural effusion, s/p thoracentesis 07/15/20 drained 300 ml bloody fluid which was sent for analysis. - continue O2 support - COVID test negative - switched to eliquis - duoneb scheduled - BIPAP at night (2) Pulmonary embolism Qualifiers: Pulmonary embolism type: single subsegmental (without acute cor pulmonale) Qualified Code(s): I26.93 - Single subsegmental pulmonary embolism without acute cor pulmonale Is this a current diagnosis for this admission?: Yes Plan: - per review of history he has history of pulmonary embolism back in January 2019 but it seems that he has not been taking warfarin. -Recently admitted for right lower lobe pneumonia for 5 days. He was on DVT prophylaxis 10. -CT angio showed PE right upper lobe and right lower lobe. -With his prior history of pulmonary embolism he will need indefinite anticoagulation. Patient has no insurance and warfarin is ideal however the patient stated that he is unsure if he can go have weekly INR checks so Eliquis might be the way to go for him. We will discussed it with discharge planning. -switched to eliquis -repeat echo EF 60 to 65%. No diastolic dysfunction noted. No definite regional wall motion abnormalities are noted. (3) Chronic diastolic heart failure Is this a current diagnosis for this admission?: Yes Plan: -Currently euvolemic -Resumed Lasix, carvedilol, lisinopril (4) Pleural effusion Is this a current diagnosis for this admission?: Yes Plan: -CTA chest showing increased pleural effusion right-sided -s/p thoracentesis drained 350 ml bloody fluid - awaiting pleural fluid analysis - abx switched to zosyn (5) Obstructive sleep apnea of adult Is this a current diagnosis for this admission?: Yes Plan: -BiPAP at night and as needed (6) Hyperglycemia due to type 2 diabetes mellitus Qualifiers: Diabetes mellitus long-term insulin use: without long-term use Qualified Code(s): E11.65 - Type 2 diabetes mellitus with hyperglycemia Is this a current diagnosis for this admission?: Yes Plan: Was on Metformin at 1000 mg twice daily at home -We will put sliding scale insulin -Accu-Cheks -hypoGlycemia protocol (7) Morbid obesity with BMI of 40.0-44.9, adult Is this a current diagnosis for this admission?: Yes Plan: Advised diet and lifestyle modification - Time Time Spent with patient: 25-34 minutes Medications reviewed and adjusted accordingly: Yes Anticipated Discharge Disposition: Home, Self Care Anticipated Discharge Timeframe: TBD
[2020-07-17] MEDS: ATORVASTATIN CALCIUM 40 MG TABLET PO SCH (21:33)
[2020-07-17] MEDS: ASPIRIN 81 MG TABLET, ENT COATED PO SCH (21:33)
[2020-07-17] MEDS: ACETAMINOPHEN 325 MG TABLET PO PRN (21:34)
[2020-07-18 05:46] LABS: INTERNATIONAL RATION (INR) 1.32; PROTHROMBIN TIME 16.6 SEC (11.4-15.4)
[2020-07-18] MEDS: PIPERACILLIN SODIUM/TAZOBACTAM 3.375 GM in NORMAL SALINE 100 ML IV SCH ×3 (06:00→21:42)
[2020-07-18] MEDS: IPRATROPIUM/ALBUTEROL 0.5-2.5 MG/3 ML AMPUL NEB SCH ×3 (08:41→19:40)
[2020-07-18] MEDS: INSULIN LISPRO 100 UNIT/ML 3 ML VIAL SUBCUT SCH ×5 (08:54→21:37)
[2020-07-18] MEDS: LISINOPRIL 10 MG TABLET PO SCH (09:14)
[2020-07-18] MEDS: APIXABAN 5 MG TABLET PO SCH ×2 (09:14→17:23)
[2020-07-18] MEDS: CARVEDILOL 6.25 MG TABLET PO SCH ×2 (09:14→21:43)
[2020-07-18] MEDS: FUROSEMIDE 40 MG TABLET PO SCH (09:14)
[2020-07-18] MEDS ORDERED: FUROSEMIDE INJ/PF 40 MG/4 ML SDV IV ONE (10:00)
[2020-07-18 12:05] LABS: ABSOLUTE BASOPHILS # (AUTO) 0.1 10^3/uL (0.0-0.2); ABSOLUTE EOSINOPHILS # (AUTO) 0.3 10^3/uL (0.0-0.6); ABSOLUTE LYMPHOCYTES (AUTO) 1.3 10^3/uL (0.5-4.7); ABSOLUTE MONOCYTES (AUTO) 0.9 10^3/uL (0.1-1.4); ABSOLUTE NEUT (AUTO) 7.5 10^3/uL (1.7-8.2); BASOPHILS % (AUTO) 0.8 % (0-2); EOSINOPHILS % (AUTO) 3.4 % (0-6); HEMATOCRIT 37.9 % (37.9-51.0); HEMOGLOBIN 12.6 g/dL (13.5-17.0); LYMPHOCYTES % (AUTO) 12.7 % (13-45); MEAN CORPUSCULAR HEMOGLOBIN 27.5 pg (27.0-33.4); MEAN CORPUSCULAR HGB CONC 33.4 g/dL (32.0-36.0); MEAN CORPUSCULAR VOLUME 83 fl (80-97); MONOCYTES % (AUTO) 9.1 % (3-13); PLATELET COUNT 256 10^3/uL (150-450); RED BLOOD COUNT 4.59 10^6/uL (4.35-5.55); RED CELL DISTRIBUTION WIDTH 15.2 % (11.5-14.0); TOTAL CELLS COUNTED % (AUTO) 100 %; WHITE BLOOD COUNT 10.2 10^3/uL (4.0-10.5)
[2020-07-18 12:18] LABS: ALBUMIN 3.4 g/dL (3.5-5.0); ALKALINE PHOSPHATASE 196 U/L (38-126); ANION GAP 11 (5-19); ASPARTATE AMINO TRANSFERASE 26 U/L (17-59); BILIRUBIN,DIRECT 0.3 mg/dL (0.0-0.4); BILIRUBIN,TOTAL 0.7 mg/dL (0.2-1.3); BLOOD UREA NITROGEN 11 mg/dL (7-20); CALCIUM 9.2 mg/dL (8.4-10.2); CARBON DIOXIDE 27 mmol/L (22-30); CHLORIDE 100 mmol/L (98-107); GLUCOSE 151 mg/dL (75-110); POTASSIUM 4.1 mmol/L (3.6-5.0); TOTAL PROTEIN 8.1 g/dL (6.3-8.2)
--- NOTE | 2020-07-18 15:48 | PDOC PROGRESS REPORT ---
Subjective Date:: 07/18/20 Subjective:: JOSÉ ANTONIO CRISOSTOMO is a 45 year old male, PMH of PE January 2019 not on anticoagulation , Diastolic CHF, COPD, RAMON, type 2 DM who came in the ED due to SOB. The patient was just recently discharged at [facility] due to acute hypoxic respiratory failure 2/2 RLL pneumonia and COPD. He completed inpatient abx. He was discharge July 06, 2020. According to him his breathing did not really improve after discharge. He came in today due to shortness of breath and midsternal chest pain. In the ED blood pressure 133/100, pulse rate of 101, respiratory rate 27, O2 sat 94%. X-ray showed small right basilar effusion and atelectasis. CTA chest showed pulmonary embolism involving the right upper lobe and right lower lobe. Right pleural effusion has increased. Airspace disease in the right lung is also increased. WBC count 17.2 troponin 0.0 31, BNP 60. He was initially put on BiPAP and was started on Lovenox therapeutic dose. Patient is hemodynamically stable. Hospitalist service called for further evaluation and management. Per review of previous notes he has a history of pulmonary embolism back in January 2019 but he is not been on any anticoagulation since then. He has a history of poor medication compliance and has been admitted multiple times at least once every month the past few months or shortness of breath. D2 hospital stay. Patient was seen and examined at bedside. He was sitting on a chair on 4L of NC saturating 95%. He stayed on BIpap most nights. According to him he had 1 episode of hypotension when he was standing up last night which spontaneously resolved. Since then blood pressure has been stable with 100 systolic. Is nontachycardic as well. I discussed with him options for his oral anticoagulations warfarin versus Eliquis. Warfarin is the cheapest but he is unsure if he will be able to have the weekly INR check necessary to monitor he is therapeutic. Eliquis is much more expensive however we can prescribe a 30- day supply for him and he can get the rest at [facility]. D3 Hospital stay. patient was seen and examined at bedside. Reports that there is a small improvement on his breathing. he remains afebrile, no chest pain. Appetite good. 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 I have switched his antibiotics to zosyn since he was recently discharged from the hospital. D4 hospital stay. Patient was seen and examined at bedside. Reports that his breathing is coming along but still not back to baseline. He was assessed by PT and determines he does not need PT. Results of his pleural fluid analysis is still pending but cultures and sensitivity are not growing anything. D5 hospital stay. Patient was seen and examined at bedside. No new complains, pleural fluid culture growing gram negative rods. repeat CT chest ordered, will consult Infectious disease. Reason For Visit: PULMONARY EMBOLISM Physical Exam Vital Signs: Temp Pulse Resp BP Pulse Ox 98.4 F 84 18 117/79 94 07/18/20 11:24 07/18/20 14:24 07/18/20 14:24 07/18/20 11:24 07/18/20 14:24 Intake & Output 07/17/20 07/18/20 07/19/20 06:59 06:59 06:59 Intake Total 1561 1180 715 Output Total 400 Balance 1161 1180 715 Weight 108.7 kg 107.8 kg General appearance: PRESENT: cooperative, mild distress Head exam: PRESENT: atraumatic, normocephalic Eye exam: PRESENT: EOMI, PERRLA Mouth exam: PRESENT: moist Neck exam: PRESENT: full ROM Respiratory exam: PRESENT: rhonchi, symmetrical, unlabored Cardiovascular exam: PRESENT: RRR, +S1, +S2 GI/Abdominal exam: PRESENT: normal bowel sounds, soft. ABSENT: rebound, tenderness Extremities exam: PRESENT: full ROM Musculoskeletal exam: PRESENT: full ROM Neurological exam: PRESENT: alert, awake, oriented to person, oriented to place, oriented to time, oriented to situation Psychiatric exam: PRESENT: normal mood Results Laboratory Results: 07/18/20 11:40 07/18/20 11:40 07/18/20 07/18/20 11:40 11:40 WBC 10.2 RBC 4.59 Hgb 12.6 L Hct 37.9 MCV 83 MCH 27.5 MCHC 33.4 RDW 15.2 H Plt Count 256 Seg Neutrophils % 74.0 Sodium 138.1 Potassium 4.1 Chloride 100 Carbon Dioxide 27 Anion Gap 11 BUN 11 Creatinine 0.71 Est GFR ( Amer) > 60 Glucose 151 H Calcium 9.2 Total Bilirubin 0.7 AST 26 Alkaline Phosphatase 196 H Total Protein 8.1 Albumin 3.4 L 12/10/20 13:51 Chest - Right Side Gram Stain - Final 07/13/20 08:41 Blood Blood Culture - Final NO GROWTH IN 5 DAYS 07/13/20 07:55 Blood Blood Culture - Final NO GROWTH IN 5 DAYS 07/13/20 07/15/20 07/15/20 07:55 05:12 16:28 Troponin I 0.031 0.018 0.019 NT-Pro-B Natriuret Pep 60 Impressions: Chest/Abdomen CTA 07/13/20 08:36 IMPRESSION: 1. PULMONARY EMBOLI PARTICULARLY INVOLVING THE RIGHT UPPER LOBE AND RIGHT LOWER LOBE PULMONARY ARTERIES. 2. RIGHT PLEURAL EFFUSION HAS INCREASED. AIRSPACE DISEASE IN THE RIGHT LUNG HAS ALSO INCREASED. 3. OTHER FINDINGS INCLUDE THYROMEGALY AND BORDERLINE MEDIASTINAL ADENOPATHY. Thoracentesis Ultrasound 07/15/20 00:00 IMPRESSION: SUCCESSFUL THORACENTESIS USING ULTRASOUND GUIDANCE. Chest X-Ray 07/15/20 15:54 IMPRESSION: No pneumothorax. Right pleural effusion. Cannot exclude airspace disease in a right lower lobe, atelectasis versus pneumonia. Cardiomegaly without pulmonary edema. Assessment and Plan - Diagnosis (1) Acute respiratory failure with hypoxia Is this a current diagnosis for this admission?: Yes Plan: - multifactorial cause. From new PE plus hx of COPD, sleep apnea and recent pneumonia with pleural effusion - O2 sat 94% improved with BIpap - CTA positive for PE - also showed increasing right pleural effusion, s/p thoracentesis 07/15/20 drained 300 ml bloody fluid which was sent for analysis. - continue O2 support - COVID test negative - switched to eliquis - duoneb scheduled - BIPAP at night (2) Pulmonary embolism Qualifiers: Pulmonary embolism type: single subsegmental (without acute cor pulmonale) Qualified Code(s): I26.93 - Single subsegmental pulmonary embolism without acute cor pulmonale Is this a current diagnosis for this admission?: Yes Plan: - per review of history he has history of pulmonary embolism back in January 2019 but it seems that he has not been taking warfarin. -Recently admitted for right lower lobe pneumonia for 5 days. He was on DVT prophylaxis 10. -CT angio showed PE right upper lobe and right lower lobe. -With his prior history of pulmonary embolism he will need indefinite anticoagulation. Patient has no insurance and warfarin is ideal however the patient stated that he is unsure if he can go have weekly INR checks so Eliquis might be the way to go for him. We will discussed it with discharge planning. -switched to eliquis -repeat echo EF 60 to 65%. No diastolic dysfunction noted. No definite regional wall motion abnormalities are noted. (3) Pleural effusion Is this a current diagnosis for this admission?: Yes Plan: -CTA chest showing increased pleural effusion right-sided -s/p thoracentesis drained 350 ml bloody fluid - Pleural fluid growing gram negative rods, awaiting final specie. He was treated for pneumonia - I reviewed with the pharmacy what abx was used during last admission and he got zosyn for about 4 days and ceftri/rocephin. Will await final culture and sensitivity result. - awaiting cytology result (4) Chronic diastolic heart failure Is this a current diagnosis for this admission?: Yes Plan: -Currently euvolemic -Resumed Lasix, carvedilol, lisinopril (5) Obstructive sleep apnea of adult Is this a current diagnosis for this admission?: Yes Plan: -BiPAP at night and as needed (6) Hyperglycemia due to type 2 diabetes mellitus Qualifiers: Diabetes mellitus senior care insulin use: without terminal make up operator use Qualified Code(s): E11.65 - Type 2 diabetes mellitus with hyperglycemia Is this a current diagnosis for this admission?: Yes Plan: Was on Metformin at 1000 mg twice daily at home -We will put sliding scale insulin -Accu-Cheks -hypoGlycemia protocol (7) Morbid obesity with BMI of 40.0-44.9, adult Is this a current diagnosis for this admission?: Yes Plan: Advised diet and lifestyle modification - Time Time Spent with patient: 15-24 minutes Medications reviewed and adjusted accordingly: Yes Anticipated Discharge Disposition: Home with Home Health Anticipated Discharge Timeframe: TBD
--- NOTE | 2020-07-18 16:41 | RADIOLOGY REPORT (SQ) ---
EXAM DESCRIPTION: CT CHEST WITH IMAGES COMPLETED DATE/TIME: 07/18/2020 3:20 pm REASON FOR STUDY: concern for lung abscess. Post thoracentesis. Bilateral pulmonary emboli. COMPARISON: Chest radiograph 07/15/2020. CT chest 07/13/2020. TECHNIQUE: CT scan of the chest performed using helical scanning technique with dynamic intravenous contrast injection. Images reviewed with lung, soft tissue and bone windows. Reconstructed coronal and sagittal MPR and MIP images reviewed. All images stored on PACS. All CT scanners at this facility use dose modulation, iterative reconstruction, and/or weight based d osing when appropriate to reduce radiation dose to as low as reasonably achievable (ALARA). [facility]: Dose Right [facility]: CareDose [facility]: Dose Right [facility]: Teradose 4D [facility]: Kamida CONTRAST TYPE AND DOSE: contrast/concentration: Isovue 350.00 mmol/ml; Total Contrast Delivered: 80. 0 ml; Total Saline Delivered: 54.5 ml RENAL FUNCTION: GFR > 60. RADIATION DOSE: CT Rad equipment meets quality standard of care and radiation dose reduction techniq ues were employed. CTDIvol: 29.7 mGy. DLP: 1071 mGy-cm. . LIMITATIONS: None. FINDINGS: LUNGS AND PLEURA: The trachea has normal caliber and appearance. Persistent consolidation in the right middle and lower lobe with small right pleural effusion, stable from prior. Linear ate lectasis at the left lung base also unchanged. No pneumothorax. No evidence of pulmonary abscess. HILAR AND MEDIASTINAL STRUCTURES: No identified masses or abnormal nodes. HEART AND VASCULAR STRUCTURES: Mild cardiomegaly. No pericardial effusion. Thoracic aorta has neil l caliber and appearance. The previously described pulmonary emboli are not well visualized on this examination as it is not optimized for pulmonary arterial enhancement. HARDWARE: None in the chest. UPPER ABDOMEN: No significant findings. Limited exam. THYROID AND OTHER SOFT TISSUES: Thyromegaly, stable. Borderline mediastinal lymph nodes. BONES: No significant finding. OTHER: No other significant finding. IMPRESSION: 1. [facility] right lower lobe and right middle lobe pneumonia with small right parapneumonic effusion, sta ble from prior. No evidence of pulmonary abscess. 2. The previously described pulmonary emboli are not well visualized on this examination which was no t optimized for pulmonary arterial enhancement. 3. Thyromegaly unchanged from prior. TECHNICAL DOCUMENTATION: JOB ID: [id number] Quality ID # [id number]: Final reports with documentation of one or more dose reduction techniques (e.g., Au tomated exposure control, adjustment of the mA and/or kV according to patient size, use of iterative reconstruction technique) 2010 [employer]- All Rights Reserved Reading location - IP/workstation name: [id number]
[2020-07-18] MEDS ORDERED: TUBERCULIN,PURIF.PROT.DERIV. 5 TU/0.1 ML TEST 1 ML VIAL ID ONE (17:00)
[2020-07-18] MEDS: ASPIRIN 81 MG TABLET, ENT COATED PO SCH (21:42)
[2020-07-18] MEDS: ATORVASTATIN CALCIUM 40 MG TABLET PO SCH (21:42)
[2020-07-19 05:51] LABS: HEMATOCRIT 35.9 % (37.9-51.0); HEMOGLOBIN 12.1 g/dL (13.5-17.0); MEAN CORPUSCULAR HEMOGLOBIN 27.8 pg (27.0-33.4); MEAN CORPUSCULAR HGB CONC 33.7 g/dL (32.0-36.0); MEAN CORPUSCULAR VOLUME 82 fl (80-97); PLATELET COUNT 247 10^3/uL (150-450); RED BLOOD COUNT 4.36 10^6/uL (4.35-5.55); RED CELL DISTRIBUTION WIDTH 15.1 % (11.5-14.0); WHITE BLOOD COUNT 9.8 10^3/uL (4.0-10.5)
[2020-07-19] MEDS: PIPERACILLIN SODIUM/TAZOBACTAM 3.375 GM in NORMAL SALINE 100 ML IV SCH ×2 (06:01→13:55)
[2020-07-19 06:05] LABS: INTERNATIONAL RATION (INR) 1.32; PROTHROMBIN TIME 16.6 SEC (11.4-15.4)
[2020-07-19] MEDS: IPRATROPIUM/ALBUTEROL 0.5-2.5 MG/3 ML AMPUL NEB SCH ×3 (08:07→20:47)
[2020-07-19] MEDS: INSULIN LISPRO 100 UNIT/ML 3 ML VIAL SUBCUT SCH ×4 (08:18→21:44)
[2020-07-19 08:28] LABS: APPEARANCE,URINE CLEAR; BILIRUBIN,URINE NEGATIVE (NEGATIVE); COLOR,URINE YELLOW; GLUCOSE, URINE NEGATIVE (NEGATIVE); KETONES,URINE NEGATIVE (NEGATIVE); LEUKOCYTE ESTERASE,URINE NEGATIVE (NEGATIVE); NITRITE,URINE NEGATIVE (NEGATIVE); PROTEIN,URINE NEGATIVE (NEGATIVE); URINE SPECIFIC GRAVITY 1.013; UROBILINOGEN,URINE NEGATIVE mg/dL (<2.0)
[2020-07-19] MEDS: CARVEDILOL 6.25 MG TABLET PO SCH ×2 (09:32→21:46)
[2020-07-19] MEDS: FUROSEMIDE 40 MG TABLET PO SCH (09:32)
[2020-07-19] MEDS: APIXABAN 5 MG TABLET PO SCH ×2 (09:32→17:28)
[2020-07-19] MEDS: LISINOPRIL 10 MG TABLET PO SCH (09:32)
--- NOTE | 2020-07-19 15:56 | PDOC CONSULTATION ---
Consultation Consult Date: 07/19/20 Attending physician:: MAGDALENO VIVAR Provider Consulted: ANGELITO OROZCO History of Present Illness Admission Date/PCP: 07/13/20 10:29 History of Present Illness: JOSÉ ANTONIO CRISOSTOMO is a 45 year old male who presented complaining of shortness of breath he had a prior complaints and presentations [id number] and 1129 each time he was told that he had a pneumonia however the he had also developed a right pleural effusion this time apparently the effusion was increasing. He admits to smoking 2 packs a day for approximately 25 years but has not smoked in several years he admits to carrying a diagnosis of COPD. He has no history of chronic lung disease as a child or adolescent the PPD status is unknown admits to exposure to passive smoke as a child as well as an adult. 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 No pets no recent travel complains of sharp chest pain sleeps on 2 pillows occasional PND occasional nocturnal cough history of CHF and has occasional edema. He also admits to snoring restless sleep unrestful sleep and excessive daytime somnolence however he has not been treated or tested for RAMON Past Medical History Cardiac Medical History: Reports: Congestive Heart Failure, Hyperlipidema, Hypertension, Pulmonary Embolism Denies: Atrial Fibrillation, Coronary Artery Disease, DVT, Myocardial Infarction Pulmonary Medical History: Reports: Chronic Obstructive Pulmonary Disease (COPD), Sleep Apnea Denies: Asthma Neurological Medical History: Reports: Other - Family history of clotting abnormalities Denies: Seizures Endocrine Medical History: Reports: Diabetes Mellitus Type 2, Hyperthyroidism Denies: Diabetes Mellitus Type 1, Hypothyroidism GI Medical History: Reports: Gastroesophageal Reflux Disease Denies: Cirrhosis, Crohn's Disease, Hepatitis, Ulcerative Colitis Musculoskeltal Medical History: Reports: Arthritis, Gout Skin Medical History: Denies: Eczema, Psoriasis Psychiatric Medical History: Reports: Depression, General Anxiety Disorder Traumatic Medical History: Denies: Gunshot Wound, Traumatic Brain Injury Hematology: Denies: Anemia, Bleeding Tendencies Infectious Medical History: Denies: Hepatitis B, Hepatitis C, HIV Past Surgical History Past Surgical History: Reports: Cardiac Catheterization, Orthopedic Surgery - Rt knee Social History Information Source: Patient, [facility] Records Lives with: Family Smoking Status: Former Smoker Cigarettes Packs Per Day: 2 Number of Years Smokin Passive smoke exposure as: Both Frequency of Alcohol Use: Occasional Hx Recreational Drug Use: No Drugs: None Hx Prescription Drug Abuse: No Do you have pets?: No Have you had any respiratory illnesses as a child?: No Have you been exposed to any sick contacts recently?: No Have you had any recent respiratory illnesses?: No Have you travelled outside of [place] in the past 12 months?: No Family History Family History: CAD, DM, Hyperlipidemia, Hypertension, Malignancy, Thyroid Disfunction Parental Family History Reviewed: Yes Children Family History Reviewed: Yes Sibling(s) Family History Reviewed.: Yes Medication/Allergy Home Medications: Metformin HCl 1,000 mg PO BIDACBS #60 tablet 07/07/20 Albuterol Sulfate [Ventolin Hfa 8 gm Mdi] 3 puff IH Q4 07/13/20 Allergies/Adverse Reactions: No Known Allergies Allergy (Verified 07/13/20 07:26) Review of Systems All systems: reviewed and no additional remarkable complaints except as stated Physical Exam Vital Signs: Temp Pulse Resp BP Pulse Ox 98.5 F 87 18 112/73 92 07/19/20 08:20 07/19/20 08:07 07/19/20 08:07 07/19/20 07:49 07/19/20 08:07 Intake & Output 07/18/20 07/19/20 07/20/20 06:59 06:59 06:59 Intake Total 1180 1402 Balance 1180 1402 Weight 107.8 kg General appearance: PRESENT: no acute distress, cooperative, disheveled, obese, well-developed, well-nourished Head exam: PRESENT: atraumatic, normocephalic Eye exam: PRESENT: conjunctiva pale, EOMI. ABSENT: nystagmus, periorbital swelling, scleral icterus Mouth exam: PRESENT: dry mucosa, neck supple Neck exam: ABSENT: carotid bruit, full ROM, JVD, lymphadenopathy, meningismus, tenderness, thyromegaly, tracheal deviation, tracheostomy, other Respiratory exam: PRESENT: decreased breath sounds, prolonged expiratory phas, rales, rhonchi, unlabored, other - Egophony at the right base. ABSENT: retraction, stridor, symmetrical, tachypnea Cardiovascular exam: PRESENT: RRR, +S1, +S2, tachycardia. ABSENT: systolic murmur Pulses: PRESENT: normal radial pulses GI/Abdominal exam: PRESENT: soft. ABSENT: distended, guarding, mass, rebound, tenderness Extremities exam: PRESENT: full ROM. ABSENT: calf tenderness, clubbing, joint swelling, pedal edema Musculoskeletal exam: PRESENT: full ROM. ABSENT: deformity, dislocation Neurological exam: PRESENT: alert, awake Psychiatric exam: PRESENT: appropriate affect Skin exam: PRESENT: dry, warm Results Laboratory Results: 07/19/20 05:10 07/18/20 11:40 07/18/20 07/18/20 07/19/20 11:40 11:40 05:10 WBC 10.2 9.8 RBC 4.59 4.36 Hgb 12.6 L 12.1 L Hct 37.9 35.9 L MCV 83 82 MCH 27.5 27.8 MCHC 33.4 33.7 RDW 15.2 H 15.1 H Plt Count 256 247 Seg Neutrophils % 74.0 Sodium 138.1 Potassium 4.1 Chloride 100 Carbon Dioxide 27 Anion Gap 11 BUN 11 Creatinine 0.71 Est GFR ( Amer) > 60 Glucose 151 H Calcium 9.2 Total Bilirubin 0.7 AST 26 Alkaline Phosphatase 196 H Total Protein 8.1 Albumin 3.4 L Urine Color Urine Appearance Urine pH Ur Specific [place] Urine Protein Urine Glucose (UA) Urine Ketones Urine Blood Urine Nitrite Ur Leukocyte Esterase Urine WBC (Auto) Urine RBC (Auto) 07/19/20 08:00 WBC RBC Hgb Hct MCV MCH MCHC RDW Plt Count Seg Neutrophils % Sodium Potassium Chloride Carbon Dioxide Anion Gap BUN Creatinine Est GFR ( Amer) Glucose Calcium Total Bilirubin AST Alkaline Phosphatase Total Protein Albumin Urine Color YELLOW Urine Appearance CLEAR Urine pH 5.0 Ur Specific [place] 1.013 Urine Protein NEGATIVE Urine Glucose (UA) NEGATIVE Urine Ketones NEGATIVE Urine Blood SMALL H Urine Nitrite NEGATIVE Ur Leukocyte Esterase NEGATIVE Urine WBC (Auto) 1 Urine RBC (Auto) 1 07/15/20 13:51 Chest - Right Side Gram Stain - Final 07/15/20 13:51 Chest - Right Side Body Fluid Culture - Final Proteus Mirabilis Klebsiella Oxytoca No Anaerobic Organisms 07/13/20 08:41 Blood Blood Culture - Final NO GROWTH IN 5 DAYS 07/13/20 07:55 Blood Blood Culture - Final NO GROWTH IN 5 DAYS 07/13/20 07/15/20 07/15/20 07:55 05:12 16:28 Troponin I 0.031 0.018 0.019 NT-Pro-B Natriuret Pep 60 Impressions: Chest/Abdomen CTA 07/13/20 08:36 IMPRESSION: 1. PULMONARY EMBOLI PARTICULARLY INVOLVING THE RIGHT UPPER LOBE AND RIGHT LOWER LOBE PULMONARY ARTERIES. 2. RIGHT PLEURAL EFFUSION HAS INCREASED. AIRSPACE DISEASE IN THE RIGHT LUNG HAS ALSO INCREASED. 3. OTHER FINDINGS INCLUDE THYROMEGALY AND BORDERLINE MEDIASTINAL ADENOPATHY. Thoracentesis Ultrasound 07/15/20 00:00 IMPRESSION: SUCCESSFUL THORACENTESIS USING ULTRASOUND GUIDANCE. Chest X-Ray 07/15/20 15:54 IMPRESSION: No pneumothorax. Right pleural effusion. Cannot exclude airspace disease in a right lower lobe, atelectasis versus pneumonia. Cardiomegaly without pulmonary edema. Chest CT 07/18/20 00:00 IMPRESSION: 1. [facility] right lower lobe and right middle lobe pneumonia with small right parapneumonic effusion, stable from prior. No evidence of pulmonary abscess. 2. The previously described pulmonary emboli are not well visualized on this examination which was not optimized for pulmonary arterial enhancement. 3. Thyromegaly unchanged from prior. Assessment & Plan - Diagnosis (1) Pneumonia Qualifiers: Pneumonia type: due to Klebsiella pneumoniae Laterality: right Lung location: lower lobe of lung Qualified Code(s): J15.0 - Pneumonia due to Klebsiella pneumoniae Is this a current diagnosis for this admission?: Yes Plan: Proteus and Klebsiella from pleural effusion most likely secondary to pneumonia (2) Pulmonary embolism Qualifiers: Pulmonary embolism type: multiple subsegmental (without acute cor pulmonale) Qualified Code(s): I26.94 - Multiple subsegmental pulmonary emboli without acute cor pulmonale Is this a current diagnosis for this admission?: Yes Plan: eloquis indef as this is 2 nd PE in 2 years and has family history of coagulopathies (3) Hypertension Qualifiers: Hypertension type: essential hypertension Qualified Code(s): I10 - Essent ial (primary) hypertension Is this a current diagnosis for this admission?: Yes Plan: stable (4) Obstructive sleep apnea Is this a current diagnosis for this admission?: Yes Plan: nippv will check ABG spirometry when possible (5) Empyema Is this a current diagnosis for this admission?: Yes Plan: gnr klebsiella in bloody effusion 07/15/20 13:51 Gram Stain - Final Chest - Right Side Body Fluid Culture - Final Proteus Mirabilis Klebsiella Oxytoca No Anaerobic Organisms Suggest Fortaz for 10 days then switch over to Levaquin for an additional 10 days if it anytime effusion increases chest tube immediately as the line between parapneumonic effusion and empyema is somewhat fuzzy however the case could be made to make a chest tube immediately (6) Pulmonary emphysema Is this a current diagnosis for this admission?: Yes Plan: check for alpha-1 at def continue bronchodialator - Time Time Spent with patient: 55 minutes
[2020-07-19 17:17] LABS: HEMATOCRIT 37.9 % (37.9-51.0); HEMOGLOBIN 12.7 g/dL (13.5-17.0); MEAN CORPUSCULAR HEMOGLOBIN 27.3 pg (27.0-33.4); MEAN CORPUSCULAR HGB CONC 33.6 g/dL (32.0-36.0); MEAN CORPUSCULAR VOLUME 81 fl (80-97); RED BLOOD COUNT 4.66 10^6/uL (4.35-5.55); RED CELL DISTRIBUTION WIDTH 14.9 % (11.5-14.0); WHITE BLOOD COUNT 9.2 10^3/uL (4.0-10.5)
[2020-07-19 17:19] LABS: PLATELET COUNT 253 10^3/uL (150-450)
--- NOTE | 2020-07-19 19:50 | PDOC PROGRESS REPORT ---
Subjective Date:: 07/19/20 Subjective:: JOSÉ ANTONIO CRISOSTOMO is a 45 year old male, PMH of PE January 2019 not on anticoagulation , Diastolic CHF, COPD, RAMON, type 2 DM who came in the ED due to SOB. The patient was just recently discharged at [facility] due to acute hypoxic respiratory failure 2/2 RLL pneumonia and COPD. He completed inpatient abx. He was discharge July 06, 2020. According to him his breathing did not really improve after discharge. He came in today due to shortness of breath and midsternal chest pain. In the ED blood pressure 133/100, pulse rate of 101, respiratory rate 27, O2 sat 94%. X-ray showed small right basilar effusion and atelectasis. CTA chest showed pulmonary embolism involving the right upper lobe and right lower lobe. Right pleural effusion has increased. Airspace disease in the right lung is also increased. WBC count 17.2 troponin 0.0 31, BNP 60. He was initially put on BiPAP and was started on Lovenox therapeutic dose. Patient is hemodynamically stable. Hospitalist service called for further evaluation and management. Per review of previous notes he has a history of pulmonary embolism back in January 2019 but he is not been on any anticoagulation since then. He has a history of poor medication compliance and has been admitted multiple times at least once every month the past few months or shortness of breath. D2 hospital stay. Patient was seen and examined at bedside. He was sitting on a chair on 4L of [place] saturating 95%. He stayed on BIpap most nights. According to him he had 1 episode of hypotension when he was standing up last night which spontaneously resolved. Since then blood pressure has been stable with 100 systolic. Is nontachycardic as well. I discussed with him options for his oral anticoagulations warfarin versus Eliquis. Warfarin is the cheapest but he is unsure if he will be able to have the weekly INR check necessary to monitor he is therapeutic. Eliquis is much more expensive however we can prescribe a 30- day supply for him and he [facility] the [facility]. D3 Hospital stay. patient was seen and examined at bedside. Reports that there is a small improvement on his breathing. he remains afebrile, no chest pain. Appetite good. 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 I have switched his antibiotics to zosyn since he was recently discharged from the hospital. D4 hospital stay. Patient was seen and examined at bedside. Reports that his breathing is coming along but still not back to baseline. He was assessed by PT and determines he does not need PT. Results of his pleural fluid analysis is still pending but cultures and sensitivity are not growing anything. D5 hospital stay. Patient was seen and examined at bedside. No new complains, pleural fluid culture growing gram negative rods. Repeat CT chest ordered, will consult Infectious disease. D6 hospital stay. He was seen and examined at bedside. He reports the he is less SOB. I spoke to Dr. Duckworth from Infectious Disease and she recommend to de escalate him to ceftriaxone to complete 7 days of IV abx and switch to oral levaquin for 4 weeks since he has a klebsiella/proteus parapneumonic effusion. PPD was done last night per Kamryn ugarte. HIV status checked. The patient admits that he was in long term for 5 years a few years ago so this can be a risk factor for Pulmonary TB. Unfortunately I was not able to order am AFB smear on his pleural fluid sample when it was drawn and I called micro and they said an AFB smear and culture can't be done on a 48 hr sample. Reason For Visit: PULMONARY EMBOLISM Physical Exam Vital Signs: Temp Pulse Resp BP Pulse Ox 98.3 F 85 20 136/82 H 95 07/19/20 16:25 07/19/20 16:25 07/19/20 16:25 07/19/20 16:25 07/19/20 16:25 Intake & Output 07/18/20 07/19/20 07/20/20 06:59 06:59 06:59 Intake Total 1180 1402 1080 Output Total 750 Balance 1180 1402 330 Weight 107.8 kg General appearance: PRESENT: cooperative, mild distress, morbidly obese Head exam: PRESENT: atraumatic, normocephalic Eye exam: PRESENT: EOMI, PERRLA Mouth exam: PRESENT: moist Neck exam: PRESENT: full ROM Respiratory exam: PRESENT: rhonchi, symmetrical, unlabored Cardiovascular exam: PRESENT: RRR, +S1, +S2 Pulses: PRESENT: +2 pedal pulses bilateral GI/Abdominal exam: PRESENT: normal bowel sounds, soft. ABSENT: rebound, tenderness Extremities exam: PRESENT: full ROM Musculoskeletal exam: PRESENT: full ROM Neurological exam: PRESENT: alert, awake, oriented to person, oriented to place, oriented to time, oriented to situation Psychiatric exam: PRESENT: normal mood Skin exam: PRESENT: normal color Results Laboratory Results: 07/19/20 16:33 07/18/20 11:40 07/19/20 07/19/20 07/19/20 05:10 08:00 16:33 WBC 9.8 9.2 RBC 4.36 4.66 Hgb 12.1 L 12.7 L Hct 35.9 L 37.9 MCV 82 81 MCH 27.8 27.3 MCHC 33.7 33.6 RDW 15.1 H 14.9 H Plt Count 247 253 Urine Color YELLOW Urine Appearance CLEAR Urine pH 5.0 Ur Specific [place] 1.013 Urine Protein NEGATIVE Urine Glucose (UA) NEGATIVE Urine Ketones NEGATIVE Urine Blood SMALL H Urine Nitrite NEGATIVE Ur Leukocyte Esterase NEGATIVE Urine WBC (Auto) 1 Urine RBC (Auto) 1 07/15/20 13:51 Chest - Right Side Gram Stain - Final 07/15/20 13:51 Chest - Right Side Body Fluid Culture - Final Proteus Mirabilis Klebsiella Oxytoca No Anaerobic Organisms 07/13/20 07/15/20 07/15/20 07:55 05:12 16:28 Troponin I 0.031 0.018 0.019 NT-Pro-B Natriuret Pep 60 Impressions: Chest/Abdomen CTA 07/13/20 08:36 IMPRESSION: 1. PULMONARY EMBOLI PARTICULARLY INVOLVING THE RIGHT UPPER LOBE AND RIGHT LOWER LOBE PULMONARY ARTERIES. 2. RIGHT PLEURAL EFFUSION HAS INCREASED. AIRSPACE DISEASE IN THE RIGHT LUNG HAS ALSO INCREASED. 3. OTHER FINDINGS INCLUDE THYROMEGALY AND BORDERLINE MEDIASTINAL ADENOPATHY. Thoracentesis Ultrasound 07/15/20 00:00 IMPRESSION: SUCCESSFUL THORACENTESIS USING ULTRASOUND GUIDANCE. Chest X-Ray 07/15/20 15:54 IMPRESSION: No pneumothorax. Right pleural effusion. Cannot exclude airspace disease in a right lower lobe, atelectasis versus pneumonia. Cardiomegaly witho ut pulmonary edema. Chest CT 07/18/20 00:00 IMPRESSION: 1. [facility] right lower lobe and right middle lobe pneumonia with small right parapneumonic effusion, stable from prior. No evidence of pulmonary abscess. 2. The previously described pulmonary emboli are not well visualized on this examination which was not optimized for pulmonary arterial enhancement. 3. Thyromegaly unchanged from prior. Assessment and Plan - Diagnosis (1) Acute respiratory failure with hypoxia Is this a current diagnosis for this admission?: Yes Plan: - multifactorial cause. From new PE plus hx of COPD, sleep apnea and recent pneumonia with pleural effusion - O2 sat 94% improved with BIpap - CTA positive for PE - also showed increasing right pleural effusion, s/p thoracentesis 07/15/20 drained 300 ml bloody fluid which was sent for analysis. - continue O2 support - COVID test negative - switched to eliquis - duoneb scheduled - BIPAP at night - Pulm following (2) Pulmonary embolism Qualifiers: Pulmonary embolism type: multiple subsegmental (without acute cor pulmonale) Qualified Code(s): I26.94 - Multiple subsegmental pulmonary emboli without acute cor pulmonale Is this a current diagnosis for this admission?: Yes Plan: - per review of history he has history of pulmonary embolism back in January 2019 but it seems that he has not been taking warfarin. -Recently admitted for right lower lobe pneumonia for 5 days. He was on DVT prophylaxis -CT angio showed PE right upper lobe and right lower lobe. -With his prior history of pulmonary embolism he will need indefinite anticoagulation. Patient has no insurance and warfarin is ideal however the patient stated that he is unsure if he can go have weekly INR checks so Eliquis might be the way to go for him. We will discussed it with discharge planning. -switched to eliquis -repeat echo EF 60 to 65%. No diastolic dysfunction noted. No definite regional wall motion abnormalities are noted. (3) Pleural effusion Is this a current diagnosis for this admission?: Yes Plan: -CTA chest showing increased pleural effusion right-sided -s/p thoracentesis drained 350 ml bloody fluid - Pleural fluid growing Klebsiella oxytoca, Proteus mirabilis sensitive to ceftriaxone. He was treated for pneumonia about 2 weeks prior. I have spoken to Dr. Duckworth from infectious disease and she recommended to de-escalate antibiotics to ceftriaxone to complete 7 days of IV antibiotics and then later on switched to Levaquin p.o. for a total of 4 weeks treatment. - Total 4 days of Zosyn. I switched to ceftriaxone today - I reviewed with the pharmacy what abx was used during last admission and he got zosyn for about 4 days and ceftri/rocephin for 1 day -AFB culture and smear was not done on the pleural fluid. -PPD pending - awaiting cytology result (4) Chronic diastolic heart failure Is this a current diagnosis for this admission?: Yes Plan: -Currently euvolemic -Resumed Lasix, carvedilol, lisinopril (5) Obstructive sleep apnea of adult Is this a current diagnosis for this admission?: Yes Plan: -BiPAP at night and as needed (6) Hyperglycemia due to type 2 diabetes mellitus Qualifiers: Diabetes mellitus usp insulin use: without usp use Qualified Code(s): E11.65 - Type 2 diabetes mellitus with hyperglycemia Is this a current diagnosis for this admission?: Yes Plan: Was on Metformin at 1000 mg twice daily at home -We will put sliding scale insulin -Accu-Cheks -hypoGlycemia protocol (7) Morbid obesity with BMI of 40.0-44.9, adult Is this a current diagnosis for this admission?: Yes Plan: Advised diet and lifestyle modification - Time Time Spent with patient: 25-34 minutes Medications reviewed and adjusted accordingly: Yes Anticipated Discharge Disposition: Home, Self Care Anticipated Discharge Timeframe: TBD
[2020-07-19] MEDS: ACETYLCYSTEINE 20% SOLN 800 MG/4 ML VIAL.NEB NEB SCH (20:47)
[2020-07-19] MEDS: ASPIRIN 81 MG TABLET, ENT COATED PO SCH (21:47)
[2020-07-19] MEDS: ATORVASTATIN CALCIUM 40 MG TABLET PO SCH (21:47)
[2020-07-20 07:22] LABS: ARTERIAL BLOOD H2CO3 1.25 mmol/L (1.05-1.35); ARTERIAL BLOOD HCO3 28.3 mmol/L (20-24); ARTERIAL BLOOD O2 SATURATION 95.2 % (94-98); ARTERIAL BLOOD PCO2 41.4 mmHg (35-45); ARTERIAL BLOOD PH 7.45 (7.35-7.45); ARTERIAL BLOOD PO2 72.4 mmHg (80-100); ARTERIAL BLOOD TOTAL CO2 29.6 mmol/L (23-27)
[2020-07-20 07:23] LABS: ARTERIAL BLOOD FIO2 ROOM AIR
--- NOTE | 2020-07-20 07:50 | Progress Note ---
Provider Note Provider Note: [facility] ID Telephone Advice Consultation Chart reviewed, patient not seen. This is a 45-year-old man with history of PE in 2019 not on anticoagulation, CHF, COPD, RAMON, Diabetes Mellitus 2, previous admissions due to pneumonia. He was admitted on 07/13 due to shortness of breath and chest pain. He was recently admitted for pneumonia and discharged home on 07/06. His symptoms worsened and he returned to the hospital. On admission, he was afebrile and had leukocytosis of 17k, CXR showed increased airspace disease in right middle and lower lobes and right pleural effusion. He also had a chest CTA that showed pulmonary embolism RUL and RLL. Increased pleural effusion as well. He received 1 dose of ceftriaxone. A thoracentesis was done on 07/15 where 300 mL of dark, josé luis fluid were removed. On 07/16 therapy was changed for Zosyn. Pleural fluid culture grew Proteus mirabilis and Klebsiella oxytoca. A repeat CT chest on 07/18 showed small effusion and airspace disease on right lung. He was evaluated by stained glass installer on 07/18 who recommended to treat for 10 days and follow up imaging. He has been on zosyn, doing better. ID consulted for recommendations. Allergies: No Known Allergies Allergy (Verified 07/13/20 07:26) Medications: Albuterol Sulfate [Ventolin Hfa 8 gm Mdi] 3 puff IH Q4 07/13/20 Vital Signs: Temp Pulse Resp BP Pulse Ox 98.2 F 88 16 123/77 96 07/20/20 04:00 07/20/20 07:00 07/20/20 04:00 07/20/20 04:00 07/20/20 04:00 Intake & Output 07/19/20 07/20/20 07/21/20 06:59 06:59 06:59 Intake Total 1402 2202 Output Total 750 Balance 1402 1452 Weight 107.8 kg 104.3 kg Weight/Height Weight 104.3 kg Height 5 ft 4 in Laboratories: 07/19/20 16:33 07/18/20 11:40 MCV 81 fl (80-97) 07/19/20 16:33 MCH 27.3 pg (27.0-33.4) 07/19/20 16:33 MCHC 33.6 g/dL (32.0-36.0) 07/19/20 16:33 RDW 14.9 % (11.5-14.0) H 07/19/20 16:33 Seg Neutrophils % 74.0 % (42-78) 07/18/20 11:40 Carbonic Acid 1.25 mmol/L (1.05-1.35) 07/20/20 06:05 HCO3/H2CO3 Ratio 22:1 07/20/20 06:05 ABG pH 7.45 (7.35-7.45) 07/20/20 06:05 ABG pCO2 41.4 mmHg (35-45) 07/20/20 06:05 ABG pO2 72.4 mmHg (80-100) L 07/20/20 06:05 ABG HCO3 28.3 mmol/L (20-24) H 07/20/20 06:05 ABG O2 Saturation 95.2 % (94-98) 07/20/20 06:05 ABG Base Excess 4.0 mmol/L 07/20/20 06:05 FiO2 ROOM AIR 07/20/20 06:05 Chloride 100 mmol/L (98-107) 07/18/20 11:40 Carbon Dioxide 27 mmol/L (22-30) 07/18/20 11:40 Anion Gap 11 (5-19) 07/18/20 11:40 Est GFR ( Amer) > 60 (>60) 07/18/20 11:40 Glucose 151 mg/dL (75-110) H 07/18/20 11:40 Calcium 9.2 mg/dL (8.4-10.2) 07/18/20 11:40 Magnesium 1.9 mg/dL (1.6-2.3) 07/15/20 05:12 Total Bilirubin 0.7 mg/dL (0.2-1.3) 07/18/20 11:40 AST 26 U/L (17-59) 07/18/20 11:40 Alkaline Phosphatase 196 U/L (38-126) H 07/18/20 11:40 Total Protein 8.1 g/dL (6.3-8.2) 07/18/20 11:40 Albumin 3.4 g/dL (3.5-5.0) L 07/18/20 11:40 Urine Color YELLOW 07/19/20 08:00 Urine Appearance CLEAR 07/19/20 08:00 Urine pH 5.0 (5.0-9.0) 07/19/20 08:00 Ur Specific [place] 1.013 07/19/20 08:00 Urine Protein NEGATIVE mg/dL (NEGATIVE) 07/19/20 08:00 Urine Glucose (UA) NEGATIVE mg/dL (NEGATIVE) 07/19/20 08:00 Urine Ketones NEGATIVE mg/dL (NEGATIVE) 07/19/20 08:00 Urine Blood SMALL (NEGATIVE) H 07/19/20 08:00 Urine Nitrite NEGATIVE (NEGATIVE) 07/19/20 08:00 Ur Leukocyte Esterase NEGATIVE (NEGATIVE) 07/19/20 08:00 Urine WBC (Auto) 1 /HPF 07/19/20 08:00 Urine RBC (Auto) 1 /HPF 07/19/20 08:00 Ur Squamous Epith Cells MANY /HPF 07/14/20 16:43 07/15/20 13:51 Chest - Right Side Gram Stain - Final 07/15/20 13:51 Chest - Right Side Body Fluid Culture - Final Proteus Mirabilis Klebsiella Oxytoca No Anaerobic Organisms Radiology: Chest/Abdomen CTA 07/13/20 08:36 IMPRESSION: 1. PULMONARY EMBOLI PARTICULARLY INVOLVING THE RIGHT UPPER LOBE AND RIGHT LOWER LOBE PULMONARY ARTERIES. 2. RIGHT PLEURAL EFFUSION HAS INCREASED. AIRSPACE DISEASE IN THE RIGHT LUNG HAS ALSO INCREASED. 3. OTHER FINDINGS INCLUDE THYROMEGALY AND BORDERLINE MEDIASTINAL ADENOPATHY. Thoracentesis Ultrasound 07/15/20 00:00 IMPRESSION: SUCCESSFUL THORACENTESIS USING ULTRASOUND GUIDANCE. Chest X-Ray 07/15/20 15:54 IMPRESSION: No pneumothorax. Right pleural effusion. Cannot exclude airspace disease in a right lower lobe, atelectasis versus pneumonia. Cardiomegaly without pulmonary edema. Chest CT 07/18/20 00:00 IMPRESSION: 1. [facility] right lower lobe and right middle lobe pneumonia with small right parapneumonic effusion, stable from prior. No evidence of pulmonary abscess. 2. The previously described pulmonary emboli are not well visualized on this examination which was not optimized for pulmonary arterial enhancement. 3. Thyromegaly unchanged from prior. Assessment and Recommendations: Patient evaluated due to right sided pneumonia complicated by parapneumonic effusion s/p thoracentesis. Cultures positive for Proteus mirabilis and Kle bsiella oxytoca. He has been on broad spectrum antibiotic. Pseudomonas nor anaerobes isolated, therefore can de escalate to ceftriaxone 2g IV daily. Duration of therapy will depend on resolution of symptoms but I suspect that he will need at least 3 weeks of therapy. Can transition to ceftriaxone and when ready to be discharged, can switch to levofloxacin 500 mg daily to complete a total of 3 weeks (EOT 08/05/20). It is possible that he is aspirating or that he has some type of immunodeficiency or autoimmune disorder that predisposes him to have pulmonary infections. This can be addressed by PCP. Please call if any questions. Yue Duckworth MD U ID [phone]
[2020-07-20] MEDS: IPRATROPIUM/ALBUTEROL 0.5-2.5 MG/3 ML AMPUL NEB SCH ×3 (08:07→19:27)
[2020-07-20] MEDS: ACETYLCYSTEINE 20% SOLN 800 MG/4 ML VIAL.NEB NEB SCH ×2 (08:09→19:27)
[2020-07-20] MEDS: INSULIN LISPRO 100 UNIT/ML 3 ML VIAL SUBCUT SCH ×4 (08:43→22:04)
[2020-07-20] MEDS: CEFTRIAXONE 2 GM/D5W RTU 2 GM/50 ML RTUPB IV SCH (09:39)
[2020-07-20] MEDS: LISINOPRIL 10 MG TABLET PO SCH (09:40)
[2020-07-20] MEDS: FUROSEMIDE 40 MG TABLET PO SCH (09:40)
[2020-07-20] MEDS: APIXABAN 5 MG TABLET PO SCH ×2 (09:40→17:18)
[2020-07-20] MEDS: CARVEDILOL 6.25 MG TABLET PO SCH ×2 (09:40→22:00)
[2020-07-20] MEDS ORDERED: CEFTRIAXONE INJ 1000 MG VIAL IV SCH (10:00)
--- NOTE | 2020-07-20 17:13 | PDOC PROGRESS REPORT ---
Subjective Date:: 07/20/20 Subjective:: Feels well. On room air. Reason For Visit: PULMONARY EMBOLISM Physical Exam Vital Signs: Temp Pulse Resp BP Pulse Ox 98.3 F 84 20 146/77 H 96 07/20/20 15:53 07/20/20 15:53 07/20/20 15:53 07/20/20 15:53 07/20/20 15:53 Intake & Output 07/19/20 07/20/20 07/21/20 06:59 06:59 06:59 Intake Total 1402 2202 800 Output Total 750 Balance 1402 1452 800 Weight 107.8 kg 104.3 kg 104.3 kg General appearance: PRESENT: no acute distress, cooperative Neck exam: ABSENT: JVD Respiratory exam: PRESENT: symmetrical, unlabored. ABSENT: accessory muscle use, tachypnea, wheezes Cardiovascular exam: PRESENT: RRR, +S1, +S2. ABSENT: tachycardia GI/Abdominal exam: PRESENT: soft. ABSENT: rigid, tenderness Neurological exam: PRESENT: alert, awake Results Laboratory Results: 07/19/20 16:33 07/18/20 11:40 07/19/20 07/20/20 16:33 06:05 WBC 9.2 RBC 4.66 Hgb 12.7 L Hct 37.9 MCV 81 MCH 27.3 MCHC 33.6 RDW 14.9 H Plt Count 253 Carbonic Acid 1.25 HCO3/H2CO3 Ratio 22:1 ABG pH 7.45 ABG pCO2 41.4 ABG pO2 72.4 L ABG HCO3 28.3 H ABG O2 Saturation 95.2 ABG Base Excess 4.0 FiO2 ROOM AIR 07/13/20 07/15/20 07/15/20 07:55 05:12 16:28 Troponin I 0.031 0.018 0.019 NT-Pro-B Natriuret Pep 60 Impressions: Chest/Abdomen CTA 07/13/20 08:36 IMPRESSION: 1. PULMONARY EMBOLI PARTICULARLY INVOLVING THE RIGHT UPPER LOBE AND RIGHT LOWER LOBE PULMONARY ARTERIES. 2. RIGHT PLEURAL EFFUSION HAS INCREASED. AIRSPACE DISEASE IN THE RIGHT LUNG HAS ALSO INCREASED. 3. OTHER FINDINGS INCLUDE THYROMEGALY AND BORDERLINE MEDIASTINAL ADENOPATHY. Thoracentesis Ultrasound 07/15/20 00:00 IMPRESSION: SUCCESSFUL THORACENTESIS USING ULTRASOUND GUIDANCE. Chest X-Ray 07/15/20 15:54 IMPRESSION: No pneumothorax. Right pleural effusion. Cannot exclude airspace disease in a right lower lobe, atelectasis versus pneumonia. Cardiomegaly without pulmonary edema. Chest CT 07/18/20 00:00 IMPRESSION: 1. [facility] right lower lobe and right middle lobe pneumonia with small right parapneumonic effusion, stable from prior. No evidence of pulmonary abscess. 2. The previously described pulmonary emboli are not well visualized on this examination which was not optimized for pulmonary arterial enhancement. 3. Thyromegaly unchanged from prior. Assessment and Plan - Diagnosis (1) Empyema Is this a current diagnosis for this admission?: Yes (2) Pulmonary embolism Qualifiers: Pulmonary embolism type: multiple subsegmental (without acute cor pulmonale) Qualified Code(s): I26.94 - Multiple subsegmental pulmonary emboli without acute cor pulmonale Is this a current diagnosis for this admission?: Yes (3) Chronic diastolic heart failure Is this a current diagnosis for this admission?: Yes (4) Hyperglycemia due to type 2 diabetes mellitus Qualifiers: Diabetes mellitus usp insulin use: without intermodal truck driver use Qualified Code(s): E11.65 - Type 2 diabetes mellitus with hyperglycemia Is this a current diagnosis for this admission?: Yes (5) Morbid obesity with BMI of 40.0-44.9, adult Is this a current diagnosis for this admission?: Yes (6) Obstructive sleep apnea of adult Is this a current diagnosis for this admission?: Yes - Plan Summary Summary: Evaluated by infectious diseases who recommends continuation of ceftriaxone and patient is ready for discharge, discharging patient on p.o. Levaquin for a few weeks. Continue Eliquis Patient currently doing well on room air. Anticipate discharge soon - Time Time Spent with patient: Less than 15 minutes Anticipated Discharge Disposition: Home, Self Care Anticipated Discharge Timeframe: within 36 hours
[2020-07-20] MEDS: ASPIRIN 81 MG TABLET, ENT COATED PO SCH (22:00)
[2020-07-20] MEDS: ATORVASTATIN CALCIUM 40 MG TABLET PO SCH (22:00)
[2020-07-21 06:39] LABS: HEMATOCRIT 36.9 % (37.9-51.0); HEMOGLOBIN 12.7 g/dL (13.5-17.0); MEAN CORPUSCULAR HEMOGLOBIN 28.1 pg (27.0-33.4); MEAN CORPUSCULAR HGB CONC 34.4 g/dL (32.0-36.0); MEAN CORPUSCULAR VOLUME 82 fl (80-97); PLATELET COUNT 277 10^3/uL (150-450); RED BLOOD COUNT 4.51 10^6/uL (4.35-5.55); RED CELL DISTRIBUTION WIDTH 15.5 % (11.5-14.0); WHITE BLOOD COUNT 8.2 10^3/uL (4.0-10.5)
[2020-07-21] MEDS: IPRATROPIUM/ALBUTEROL 0.5-2.5 MG/3 ML AMPUL NEB SCH ×3 (08:00→20:13)
[2020-07-21] MEDS: ACETYLCYSTEINE 20% SOLN 800 MG/4 ML VIAL.NEB NEB SCH ×2 (08:01→20:14)
[2020-07-21] MEDS: INSULIN LISPRO 100 UNIT/ML 3 ML VIAL SUBCUT SCH ×4 (09:15→21:49)
[2020-07-21] MEDS: FUROSEMIDE 40 MG TABLET PO SCH (10:37)
[2020-07-21] MEDS: CARVEDILOL 6.25 MG TABLET PO SCH ×2 (10:38→21:50)
[2020-07-21] MEDS: APIXABAN 5 MG TABLET PO SCH ×2 (10:38→17:06)
[2020-07-21] MEDS: LISINOPRIL 10 MG TABLET PO SCH (10:38)
[2020-07-21] MEDS: CEFTRIAXONE 2 GM/D5W RTU 2 GM/50 ML RTUPB IV SCH (10:38)
[2020-07-21 10:45] LABS: APPEARANCE,URINE CLEAR; BILIRUBIN,URINE NEGATIVE (NEGATIVE); COLOR,URINE YELLOW; GLUCOSE, URINE NEGATIVE (NEGATIVE); KETONES,URINE NEGATIVE (NEGATIVE); LEUKOCYTE ESTERASE,URINE NEGATIVE (NEGATIVE); NITRITE,URINE NEGATIVE (NEGATIVE); PROTEIN,URINE 30 mg/dL (NEGATIVE); URINE SPECIFIC GRAVITY 1.015
--- NOTE | 2020-07-21 16:20 | PDOC PROGRESS REPORT ---
Subjective Date:: 07/21/20 Subjective:: Patient feels well today. Denies shortness of breath cough or chills. Alex af ebrile. Reason For Visit: PULMONARY EMBOLISM Physical Exam Vital Signs: Temp Pulse Resp BP Pulse Ox 98.3 F 83 19 99/55 L 91 L 07/21/20 15:07 07/21/20 15:07 07/21/20 15:07 07/21/20 15:07 07/21/20 15:07 Intake & Output 07/20/20 07/21/20 07/22/20 06:59 06:59 06:59 Intake Total 2202 800 1086 Output Total 750 420 Balance 1452 800 666 Weight 104.3 kg 101.4 kg General appearance: PRESENT: no acute distress, cooperative Neck exam: ABSENT: JVD Respiratory exam: PRESENT: clear to auscultation nitin, symmetrical, unlabored. ABSENT: accessory muscle use, tachypnea, wheezes Cardiovascular exam: PRESENT: RRR, +S1, +S2. ABSENT: tachycardia GI/Abdominal exam: PRESENT: soft. ABSENT: rebound, rigid, tenderness Neurological exam: PRESENT: alert, awake, oriented to person, oriented to place, oriented to time Results Laboratory Results: 07/21/20 06:02 07/18/20 11:40 07/15/20 07/15/20 07/21/20 13:51 13:51 06:02 WBC 8.2 RBC 4.51 Hgb 12.7 L Hct 36.9 L MCV 82 MCH 28.1 MCHC 34.4 RDW 15.5 H Plt Count 277 Urine Color Urine Appearance Urine pH Ur Specific [place] Urine Protein Urine Glucose (UA) Urine Ketones Urine Blood Urine Nitrite Ur Leukocyte Esterase Urine WBC (Auto) Urine RBC (Auto) Fluid Glucose Fluid Total Protein Fluid Albumin Fluid LDH 07/21/20 09:56 WBC RBC Hgb Hct MCV MCH MCHC RDW Plt Count Urine Color YELLOW Urine Appearance CLEAR Urine pH 6.0 Ur Specific [place] 1.015 Urine Protein 30 H Urine Glucose (UA) NEGATIVE Urine Ketones NEGATIVE Urine Blood SMALL H Urine Nitrite NEGATIVE Ur Leukocyte Esterase NEGATIVE Urine WBC (Auto) 2 Urine RBC (Auto) 3 Fluid Glucose Fluid Total Protein Fluid Albumin Fluid LDH 07/13/20 07/15/20 07/15/20 07:55 05:12 16:28 Troponin I 0.031 0.018 0.019 NT-Pro-B Natriuret Pep 60 Impressions: Chest/Abdomen CTA 07/13/20 08:36 IMPRESSION: 1. PULMONARY EMBOLI PARTICULARLY INVOLVING THE RIGHT UPPER LOBE AND RIGHT LOWER LOBE PULMONARY ARTERIES. 2. RIGHT PLEURAL EFFUSION HAS INCREASED. AIRSPACE DISEASE IN THE RIGHT LUNG HAS ALSO INCREASED. 3. OTHER FINDINGS INCLUDE THYROMEGALY AND BORDERLINE MEDIASTINAL ADENOPATHY. Thoracentesis Ultrasound 07/15/20 00:00 IMPRESSION: SUCCESSFUL THORACENTESIS USING ULTRASOUND GUIDANCE. Chest X-Ray 07/15/20 15:54 IMPRESSION: No pneumothorax. Right pleural effusion. Cannot exclude airspace disease in a right lower lobe, atelectasis versus pneumonia. Cardiomegaly without pulmonary edema. Chest CT 07/18/20 00:00 IMPRESSION: 1. [facility] right lower lobe and right middle lobe pneumonia with small right parapneumonic effusion, stable from prior. No evidence of pulmonary abscess. 2. The previously described pulmonary emboli are not well visualized on this examination which was not optimized for pulmonary arterial enhancement. 3. Thyromegaly unchanged from prior. Assessment and Plan - Diagnosis (1) Empyema Is this a current diagnosis for this admission?: Yes (2) Pulmonary embolism Qualifiers: Pulmonary embolism type: multiple subsegmental (without acute cor pulmonale) Qualified Code(s): I26.94 - Multiple subsegmental pulmonary emboli without acute cor pulmonale Is this a current diagnosis for this admission?: Yes (3) Chronic diastolic heart failure Is this a current diagnosis for this admission?: Yes (4) Hyperglycemia due to type 2 diabetes mellitus Qualifiers: Diabetes mellitus usp insulin use: without usp use Qualified Code(s): E11.65 - Type 2 diabetes mellitus with hyperglycemia Is this a current diagnosis for this admission?: Yes (5) Morbid obesity with BMI of 40.0-44.9, adult Is this a current diagnosis for this admission?: Yes (6) Obstructive sleep apnea of adult Is this a current diagnosis for this admission?: Yes - Plan Summary Summary: Patient remains stable without evidence of distress or profound symptoms regarding his current empyema. He is also oxygenating well on room air and has been doing so for the past few days now. He has continued to be on ceftriaxone IV daily. I did perform a phone consultation and discussion with CT surgery at [facility] Cristhian TOM who reviewed patient's CT images from this hospitalization before and after the thoracentesis and also discussed the case with his attending physician who also reviewed the images gives recommendation for patient to continue on biotics for the next 3 weeks and have a repeat CT scan done in 2 weeks at which time we can follow-up with either CT surgery or big data software engineer as outpatient to review the repeat images to determine if surgical intervention/VATS has to be done. Currently not much to be drained in that location. - Time Anticipated Discharge Disposition: Home, Self Care Anticipated Discharge Timeframe: within 24 hours
[2020-07-21] MEDS: ATORVASTATIN CALCIUM 40 MG TABLET PO SCH (21:50)
[2020-07-21] MEDS: ASPIRIN 81 MG TABLET, ENT COATED PO SCH (21:51)
[2020-07-22] MEDS: IPRATROPIUM/ALBUTEROL 0.5-2.5 MG/3 ML AMPUL NEB SCH (07:43)
[2020-07-22] MEDS: ACETYLCYSTEINE 20% SOLN 800 MG/4 ML VIAL.NEB NEB SCH (07:55)
[2020-07-22] MEDS: INSULIN LISPRO 100 UNIT/ML 3 ML VIAL SUBCUT SCH ×2 (08:03→11:21)
[2020-07-22] MEDS: FUROSEMIDE 40 MG TABLET PO SCH (09:28)
[2020-07-22] MEDS: APIXABAN 5 MG TABLET PO SCH (09:28)
[2020-07-22] MEDS: LISINOPRIL 10 MG TABLET PO SCH (09:28)
[2020-07-22] MEDS: CARVEDILOL 6.25 MG TABLET PO SCH (09:28)
[2020-07-22] MEDS: CEFTRIAXONE 2 GM/D5W RTU 2 GM/50 ML RTUPB IV SCH (09:29)
[2020-07-22 12:48] VITALS: BP 121/75
--- NOTE | 2020-07-22 14:08 | PDOC DISCHARGE SUMMARY ---
Impression - Admit/DC Date/PCP Admission Date/Primary Care Provider: 07/13/20 10:29 Discharge Date: 07/22/20 - Discharge Diagnosis (1) Empyema Is this a current diagnosis for this admission?: Yes (2) Pulmonary embolism Is this a current diagnosis for this admission?: Yes (3) Hyperglycemia due to type 2 diabetes mellitus Is this a current diagnosis for this admission?: Yes (4) Morbid obesity with BMI of 40.0-44.9, adult Is this a current diagnosis for this admission?: Yes (5) Obstructive sleep apnea of adult Is this a current diagnosis for this admission?: Yes (6) HTN (hypertension) Is this a current diagnosis for this admission?: Yes - Additional Information Discharge Diet: As Tolerated Discharge Activity: Activity As Tolerated Referrals: ANGELITO ANN MD [ACTIVE STAFF] - 07/27/20 1:30 pm Prescriptions: Carvedilol [Coreg 6.25 mg Tablet] 6.25 mg PO Q12 #60 tablet Apixaban [Eliquis 5 mg Tablet] 5 mg PO BID 30 Days #60 tablet Levofloxacin [Levaquin 500 mg Tablet] 500 mg PO DAILY 20 Days #18 tablet Lisinopril [Zestril] 40 mg PO DAILY #30 tablet Home Medications: Metformin HCl 1,000 mg PO BIDACBS #60 tablet 07/07/20 Albuterol Sulfate [Ventolin Hfa 8 gm Mdi] 3 puff IH Q4 07/13/20 Apixaban [Eliquis 5 mg Tablet] 5 mg PO BID 30 Days #60 tablet 07/22/20 Carvedilol [Coreg 6.25 mg Tablet] 6.25 mg PO Q12 #60 tablet 07/22/20 Levofloxacin [Levaquin 500 mg Tablet] 500 mg PO DAILY 20 Days #18 tablet 07/22/20 Lisinopril [Zestril] 40 mg PO DAILY #30 tablet 07/22/20 History of Present Illiness History of Present Illness: According to Admitting Provider: JOSÉ ANTONIO CRISOSTOMO is a 45 year old male, PMH of PE January 2019 not on anticoagulation, Diastolic CHF, COPD, RAMON, type 2 DM who came in the ED due to SOB. The patient was just recently discharged at [facility] due to acute hypoxic respiratory failure 2/2 RLL pneumonia and COPD. He completed inpatient abx. He was discharge July 06, 2020. According to him his breathing did not really improve after discharge. He came in today due to shortness of breath and midsternal chest pain. In the ED blood pressure 133/100, pulse rate of 101, respiratory rate 27, O2 sat 94%. X-ray showed small right basilar effusion and atelectasis. CTA chest showed pulmonary embolism involving the right upper lobe and right lower lobe. Right pleural effusion has increased. Airspace disease in the right lung is also increased. WBC count 17.2 troponin 0.0 31, BNP 60. He was initially put on BiPAP and was started on Lovenox therapeutic dose. Patient is hemodynamically stable. Hospitalist service called for further evaluation and management. Hospital Course Hospital Course: Patient was admitted to the hospital for evaluation of shortness of breath. Notably he had just been discharged. Recently after being treated for pneumonia and hypoxic respiratory failure and completed inpatient course of antibiotics. Seems patient was discharged on Lasix as well at that time. On this occasion, patient was short of breath and mildly hypoxic. CTA of the chest was performed which showed right-sided pleural effusion as well as right sided pulmonary embolism. Patient was started on anticoagulation. Patient was also sent for thoracentesis during which 300 cc of dark josé luis-colored fluid was aspirated. Patient was also put on antibiotics. Pleural fluid culture came back positive for Klebsiella as well as Proteus. Given infected pleural fluid this is indicative of empyema. Repeat CT scan of the chest showed only very small remnant of the pleural fluid in the pleural cavity. Patient was on broad-spe ctrum antibiotics initially and then transitioned to ceftriaxone. Of note hypoxia has resolved. Echocardiogram this hospitalization was also notably normal with normal diastolic and systolic function. He is currently euvolemic and does not look to be in heart failure. Goal being directed to blood pressure control. Regarding his empyema, pulmonology and infectious disease were consulted. ID recommended continuing patient on ceftriaxone until patient symptoms improved and at time of discharge discharging patient on Levaquin 500 mg daily and patient will need to complete at least 3 weeks of antibiotics. I performed a phone consultation with Cardiothoracic surgery at [facility] who reviewed the images of the images which I sent over and recommended that currently the fluid looks too small to do any tube placement into and recommended continuation of antibiotics as recommended by ID but that patient will need to have a CT scan repeated in 2 weeks to evaluate to see if surgery is needed. I have discussed with patient and he will follow-up with assistant golf professional Dr. Ann to get the CT scheduled for 2 weeks. Patient has been on antibiotics for 10 days now. Given patient with empyema, I have given him Levaquin with plan for 18 more days and set him up with Dr. Ann for [address] weeks to get a CT scan scheduled. He has completed his Eliquis low today will b e discharged home on p.o. Eliquis lifelong as this is his recurrent episode of VTE. I have discussed discharge plan in detail with him and he fully understands. He has been given coupon for eliquis by our and his family member will help him with funds for meds. Physical Exam Vital Signs: Temp Pulse Resp BP Pulse Ox 97.9 F 87 20 121/75 94 07/22/20 12:47 07/22/20 12:47 07/22/20 12:47 07/22/20 12:47 07/22/20 12:47 Intake & Output 07/21/20 07/22/20 07/23/20 06:59 06:59 06:59 Intake Total 800 1326 50 Output Total 420 Balance 800 906 50 Weight 101.4 kg General appearance: PRESENT: no acute distress, cooperative Neck exam: ABSENT: JVD Respiratory exam: PRESENT: clear to auscultation nitin, unlabored Cardiovascular exam: PRESENT: +S1, +S2. ABSENT: tachycardia Musculoskeletal exam: PRESENT: ambulatory Neurological exam: PRESENT: alert, awake, oriented to person, oriented to place, oriented to time Results Laboratory Results: WBC 8.2 10^3/uL (4.0-10.5) 07/21/20 06:02 RBC 4.51 10^6/uL (4.35-5.55) 07/21/20 06:02 Hgb 12.7 g/dL (13.5-17.0) L 07/21/20 06:02 Hct 36.9 % (37.9-51.0) L 07/21/20 06:02 MCV 82 fl (80-97) 07/21/20 06:02 MCH 28.1 pg (27.0-33.4) 07/21/20 06:02 MCHC 34.4 g/dL (32.0-36.0) 07/21/20 06:02 RDW 15.5 % (11.5-14.0) H 07/21/20 06:02 Plt Count 277 10^3/uL (150-450) 07/21/20 06:02 Lymph % (Auto) 12.7 % (13-45) L 07/18/20 11:40 [place] % (Auto) 9.1 % (3-13) 07/18/20 11:40 Eos % (Auto) 3.4 % (0-6) 07/18/20 11:40 Baso % (Auto) 0.8 % (0-2) 07/18/20 11:40 Absolute Neuts (auto) 7.5 10^3/uL (1.7-8.2) 07/18/20 11:40 Absolute Lymphs (auto) 1.3 10^3/uL (0.5-4.7) 07/18/20 11:40 Absolute Monos (auto) 0.9 10^3/uL (0.1-1.4) 07/18/20 11:40 Absolute Eos (auto) 0.3 10^3/uL (0.0-0.6) 07/18/20 11:40 Absolute Basos (auto) 0.1 10^3/uL (0.0-0.2) 07/18/20 11:40 Seg Neutrophils % 74.0 % (42-78) 07/18/20 11:40 PT 16.6 SEC (11.4-15.4) H 07/19/20 05:10 INR 1.32 07/19/20 05:10 D-Dimer 5.17 ug/mL (0.00-0.50) H 07/13/20 07:55 Carbonic Acid 1.25 mmol/L (1.05-1.35) 07/20/20 06:05 HCO3/H2CO3 Ratio 22:1 07/20/20 06:05 ABG pH 7.45 (7.35-7.45) 07/20/20 06:05 ABG pCO2 41.4 mmHg (35-45) 07/20/20 06:05 ABG pO2 72.4 mmHg (80-100) L 07/20/20 06:05 ABG HCO3 28.3 mmol/L (20-24) H 07/20/20 06:05 ABG Total CO2 29.6 mmol/L (23-27) H 07/20/20 06:05 ABG O2 Saturation 95.2 % (94-98) 07/20/20 06:05 ABG Base Excess 4.0 mmol/L 07/20/20 06:05 FiO2 ROOM AIR 07/20/20 06:05 Sodium 138.1 mmol/L (137-145) 07/18/20 11:40 Potassium 4.1 mmol/L (3.6-5.0) 07/18/20 11:40 Chloride 100 mmol/L (98-107) 07/18/20 11:40 Carbon Dioxide 27 mmol/L (22-30) 07/18/20 11:40 Anion Gap 11 (5-19) 07/18/20 11:40 BUN 11 mg/dL (7-20) 07/18/20 11:40 Creatinine 0.71 mg/dL (0.52-1.25) 07/18/20 11:40 Est GFR ( Amer) > 60 (>60) 07/18/20 11:40 Est GFR (MDRD) Non-Af > 60 (>60) 07/18/20 11:40 Glucose 151 mg/dL (75-110) H 07/18/20 11:40 POC Glucose 148 mg/dL (70-110) H 07/22/20 11:10 Calcium 9.2 mg/dL (8.4-10.2) 07/18/20 11:40 Magnesium 1.9 mg/dL (1.6-2.3) 07/15/20 05:12 Total Bilirubin 0.7 mg/dL (0.2-1.3) 07/18/20 11:40 Direct Bilirubin 0.3 mg/dL (0.0-0.4) 07/18/20 11:40 Neonat Total Bilirubin Not Reportable 07/18/20 11:40 Neonat Direct Bilirubin Not Reportable 07/18/20 11:40 Neonat Indirect Bili Not Reportable 07/18/20 11:40 AST 26 U/L (17-59) 07/18/20 11:40 ALT 23 U/L (<50) 07/18/20 11:40 Alkaline Phosphatase 196 U/L (38-126) H 07/18/20 11:40 Troponin I 0.019 ng/mL 07/15/20 16:28 NT-Pro-B Natriuret Pep 60 pg/mL (<125) 07/13/20 07:55 Total Protein 8.1 g/dL (6.3-8.2) 07/18/20 11:40 Albumin 3.4 g/dL (3.5-5.0) L 07/18/20 11:40 Urine Color YELLOW 07/21/20 09:56 Urine Appearance CLEAR 07/21/20 09:56 Urine pH 6.0 (5.0-9.0) 07/21/20 09:56 Ur Specific [place] 1.015 07/21/20 09:56 Urine Protein 30 mg/dL (NEGATIVE) H 07/21/20 09:56 Urine Glucose (UA) NEGATIVE mg/dL (NEGATIVE) 07/21/20 09:56 Urine Ketones NEGATIVE mg/dL (NEGATIVE) 07/21/20 09:56 Urine Blood SMALL (NEGATIVE) H 07/21/20 09:56 Urine Nitrite NEGATIVE (NEGATIVE) 07/21/20 09:56 Urine Bilirubin NEGATIVE (NEGATIVE) 07/21/20 09:56 Urine Urobilinogen 2.0 mg/dL (<2.0) H 07/21/20 09:56 Ur Leukocyte Esterase NEGATIVE (NEGATIVE) 07/21/20 09:56 Urine WBC (Auto) 2 /HPF 07/21/20 09:56 Urine RBC (Auto) 3 /HPF 07/21/20 09:56 Urine RBC 1-5 /HPF 07/14/20 16:43 Ur Squamous Epith Cells MANY /HPF 07/14/20 16:43 Squamous Epi Cells Auto 1 /HPF 07/21/20 09:56 Urine Mucus (Auto) RARE /LPF 07/21/20 09:56 Urine Ascorbic Acid NEGATIVE (NEGATIVE) 07/21/20 09:56 Fluid Glucose 07/15/20 13:51 Fluid Total Protein 07/15/20 13:51 Fluid Albumin 07/15/20 13:51 Fluid LDH 07/15/20 13:51 COVID-19 Source Cancelled 07/13/20 07:55 COVID-19 (ALESSANDRA) Cancelled 07/13/20 07:55 HIV 1&2 Antibody NEGATIVE (NEGATIVE) 07/18/20 16:45 Influenza A (RT-PCR) NEGATIVE (NEGATIVE) 07/13/20 07:55 Influenza B (RT-PCR) NEGATIVE (NEGATIVE) 07/13/20 07:55 RSV (RT-PCR) NEGATIVE (NEGATIVE) 07/13/20 07:55 SARS-CoV-2 Rap RNA(RT-PCR) NEGATIVE (NEGATIVE) 07/13/20 07:55 07/13/20 12 12 07:55 05:12 16:28 Troponin I 0.031 0.018 0.019 NT-Pro-B Natriuret Pep 60 Impressions: Chest X-Ray 07/13/20 07:42 IMPRESSION: Small right basilar effusion and atelectasis, stable. Chest/Abdomen CTA 07/13/20 08:36 IMPRESSION: 1. PULMONARY EMBOLI PARTICULARLY INVOLVING THE RIGHT UPPER LOBE AND RIGHT LOWER LOBE PULMONARY ARTERIES. 2. RIGHT PLEURAL EFFUSION HAS INCREASED. AIRSPACE DISEASE IN THE RIGHT LUNG HAS ALSO INCREASED. 3. OTHER FINDINGS INCLUDE THYROMEGALY AND BORDERLINE MEDIASTINAL ADENOPATHY. Thoracentesis Ultrasound 07/15/20 00:00 IMPRESSION: SUCCESSFUL THORACENTESIS USING ULTRASOUND GUIDANCE. Chest X-Ray 07/15/20 13:54 IMPRESSION: RIGHT PLEURAL EFFUSION AND RIGHT BASILAR DENSITY. NO PNEUMOTHORAX FOLLOWING THORACENTESIS. Chest X-Ray 07/15/20 15:54 IMPRESSION: No pneumothorax. Right pleural effusion. Cannot exclude airspace disease in a right lower lobe, atelectasis versus pneumonia. Cardiomegaly without pulmonary edema. Chest CT 07/18/20 00:00 IMPRESSION: 1. [facility] right lower lobe and right middle lobe pneumonia with small right parapneumonic effusion, stable from prior. No evidence of pulmonary abscess. 2. The previously described pulmonary emboli are not well visualized on this examination which was not optimized for pulmonary arterial enhancement. 3. Thyromegaly unchanged from prior. Plan Time Spent: Greater than 30 Minutes Stroke Is this a Stroke Patient?: No Acute Heart Failure Is this a Heart Failure Patient?: No
== END 2020-07-22 13:50 | disposition home or self-care (01) | DRG 175 ==
LOC: ER 07:17 → EH 10:29 → 5 14:28
PROVIDERS: ADMIT Internal Medicine; ATTEND Internal Medicine
PROC: 0W993ZZ Drainage of Right Pleural Cavity, Percutaneous Approach (ICD-10-PCS; principal; 2020-07-15)
PROC: 5A09357 Assistance with Respiratory Ventilation, Less than 24 Consecutive Hours, Continuous Positive Airway Pressure (ICD-10-PCS; 2020-07-17)
DX: I26.94 Multiple subsegmental thrombotic pulmonary emboli without acute cor pulmonale (principal); J86.9 Pyothorax without fistula; J15.0 Pneumonia due to Klebsiella pneumoniae; J96.01 Acute respiratory failure with hypoxia; Z68.41 Body mass index [BMI] 40.0-44.9, adult; J98.11 Atelectasis; J90 Pleural effusion, not elsewhere classified; I50.32 Chronic diastolic (congestive) heart failure; I11.0 Hypertensive heart disease with heart failure; B96.1 Klebsiella pneumoniae [K. pneumoniae] as the cause of diseases classified elsewhere; E11.65 Type 2 diabetes mellitus with hyperglycemia; E66.01 Morbid (severe) obesity due to excess calories; G47.33 Obstructive sleep apnea (adult) (pediatric); J44.9 Chronic obstructive pulmonary disease, unspecified; B96.4 Proteus (mirabilis) (morganii) as the cause of diseases classified elsewhere; E78.5 Hyperlipidemia, unspecified; E05.90 Thyrotoxicosis, unspecified without thyrotoxic crisis or storm; K21.9 Gastro-esophageal reflux disease without esophagitis; M19.90 Unspecified osteoarthritis, unspecified site; M10.9 Gout, unspecified; F32.9 Major depressive disorder, single episode, unspecified; F41.1 Generalized anxiety disorder; E04.2 Nontoxic multinodular goiter; Z79.01 Long term (current) use of anticoagulants; Z79.84 Long term (current) use of oral hypoglycemic drugs; Z79.899 Other long term (current) drug therapy; Z87.891 Personal history of nicotine dependence; Z83.3 Family history of diabetes mellitus; Z83.42 Family history of familial hypercholesterolemia; Z82.49 Family history of ischemic heart disease and other diseases of the circulatory system; Z59.0 Homelessness; Z91.14 Patient's other noncompliance with medication regimen; Z11.59 Encounter for screening for other viral diseases
CPT/HCPCS: 32555; 36415; 36600; 71045; 71260; 71275; 80053; 81001; 82042; 82803; 82945; 82962; 83615; 83735; 83880; 84157; 84484; 85025; 85027; 85379; 85610; 86701; 87040; 87070; 87075; 87077; 87186; 87205; 88305; 88341; 88342; 93005; 93010; 93308; 94640; 94660; 94667; 96365; 96375; 99285; 0241U; C9803; J0696; J1650; J1815; J1885; J1940; J2543; J3370; J3490; J7040; J7050

== ENCOUNTER → 2020-08-04 | Outpatient (CLI) | payer OTHER ==
--- NOTE | 2020-08-04 11:23 | RADIOLOGY REPORT (SQ) ---
EXAM DESCRIPTION: CHEST 2 VIEWS IMAGES COMPLETED DATE/TIME: 08/04/2020 11:01 am REASON FOR STUDY: PNEUMONIA COMPARISON: 07/15/2020 EXAM PARAMETERS: NUMBER OF VIEWS: two views TECHNIQUE: Digital Frontal and Lateral radiographic views of the chest acquired. RADIATION DOSE: NA LIMITATIONS: none FINDINGS: LUNGS AND PLEURA: Persistent small right-sided pleural effusion with mild bilateral inters titial airspace disease either pneumonia or edema. No pneumothorax. MEDIASTINUM AND HILAR STRUCTURES: No masses or contour abnormalities. HEART AND VASCULAR STRUCTURES: Heart normal size. No evidence for failure. BONES: No acute findings. HARDWARE: None in the chest. OTHER: No other significant finding. IMPRESSION: Persistent bibasilar interstitial airspace disease and persistent small right pleural ef fusion. Findings may represent pneumonia or edema. TECHNICAL DOCUMENTATION: JOB ID: [id number] 2010 [employer]- All Rights Reserved Reading location - IP/workstation name: [email or web address]
== END ==
LOC: RAD 10:31
DX: J18.9 Pneumonia, unspecified organism (principal)
CPT/HCPCS: 71046

== ENCOUNTER 2020-08-08 14:01 | Emergency (ER) | payer OTHER ==
--- NOTE | 2020-08-08 14:10 | ER Document Report ---
ED Medical Screen (RME) - General Chief Complaint: Flank Pain Stated Complaint: FLANK PAIN Time Seen by Provider: 08/08/20 14:10 Notes: Patient is 45-year-old male, currently on Eliquis for pulmonary emboli who presents to the emergency department with left flank pain. Patient states that his pain hurts every time he moves. States that he has had his pain for the past week. Exam: CVA tenderness. I have greeted and performed a rapid initial assessment of this patient. A comprehensive ED assessment and evaluation of the patient, analysis of test results and completion of medical decision making process will be conducted by an additional ED providers. TRAVEL OUTSIDE OF THE [place] IN LAST 30 DAYS: No - Related Data Allergies/Adverse Reactions: No Known Allergies Allergy (Verified 07/13/20 07:26) Past Medical History - Past Medical History Cardiac Medical History: Reports: Hx Congestive Heart Failure, Hx Hypercholesterolemia, Hx Hypertension, Hx Pulmonary Embolism Denies: Hx Atrial Fibrillation, Hx Coronary Artery Disease, Hx DVT, Hx Heart Attack Pulmonary Medical History: Reports: Hx COPD, Hx Sleep Apnea Denies: Hx Asthma Neurological Medical History: Denies: Hx Seizures Endocrine Medical History: Reports: Hx Diabetes Mellitus Type 2, Hx Hyperthyroidism. Denies: Hx Diabetes Mellitus Type 1, Hx Hypothyroidism Renal/ Medical History: Denies: Hx Peritoneal Dialysis GI Medical History: Reports: Hx Gastroesophageal Reflux Disease. Denies: Hx Cirrhosis, Hx Crohn's Disease, Hx Hepatitis, Hx Ulcerative Colitis Musculoskeltal Medical History: Reports Hx Arthritis, Reports Hx Gout Skin Medical History: Denies Hx Eczema, Denies Hx Psoriasis Psychiatric Medical History: Reports: Hx Anxiety, Hx Depression Traumatic Medical History: Denies: Hx Gunshot Wound, Hx Traumatic Brain Injury Infectious Medical History: Denies: Hx Hepatitis, Hx HIV Past Surgical History: Reports: Hx Abdominal Surgery, Hx Cardiac Catheterization, Hx Orthopedic Surgery - Rt knee - Immunizations Hx Diphtheria, Pertussis, Tetanus Vaccination: Yes Physical Exam - Vital signs Vitals: Temp Pulse Resp BP Pulse Ox 98.6 F 100 16 174/110 H 98 08/08/20 14:04 08/08/20 14:04 08/08/20 14:04 08/08/20 14:04 08/08/20 14:04 Course - Vital Signs Vital signs: Temp Pulse Resp BP Pulse Ox 98.6 F 100 16 174/110 H 98 08/08/20 14:04 08/08/20 14:04 08/08/20 14:04 08/08/20 14:04 08/08/20 14:04
[2020-08-08] MEDS ORDERED: NORMAL SALINE 1000 ML 1,000 ML IV ONE ×2 (14:16→20:15)
[2020-08-08] MEDS ORDERED: MORPHINE SULFATE 10 MG/ML INJ IV ONE ×2 (14:17→21:00)
[2020-08-08 14:34] LABS: APPEARANCE,URINE CLEAR; BILIRUBIN,URINE NEGATIVE (NEGATIVE); COLOR,URINE YELLOW; GLUCOSE, URINE NEGATIVE (NEGATIVE); KETONES,URINE NEGATIVE (NEGATIVE); PROTEIN,URINE 100 mg/dL (NEGATIVE); URINE SPECIFIC GRAVITY 1.011; UROBILINOGEN,URINE NEGATIVE mg/dL (<2.0)
[2020-08-08 14:51] LABS: ABSOLUTE EOSINOPHILS # (AUTO) 0.2 10^3/uL (0.0-0.6); ABSOLUTE LYMPHOCYTES (AUTO) 2.6 10^3/uL (0.5-4.7); ABSOLUTE MONOCYTES (AUTO) 0.8 10^3/uL (0.1-1.4); ABSOLUTE NEUT (AUTO) 4.1 10^3/uL (1.7-8.2); BASOPHILS % (AUTO) 0.6 % (0-2); EOSINOPHILS % (AUTO) 2.3 % (0-6); HEMATOCRIT 39.7 % (37.9-51.0); HEMOGLOBIN 13.5 g/dL (13.5-17.0); LYMPHOCYTES % (AUTO) 33.8 % (13-45); MEAN CORPUSCULAR HEMOGLOBIN 27.4 pg (27.0-33.4); MEAN CORPUSCULAR HGB CONC 34.1 g/dL (32.0-36.0); MEAN CORPUSCULAR VOLUME 80 fl (80-97); MONOCYTES % (AUTO) 10.5 % (3-13); PLATELET COUNT 233 10^3/uL (150-450); RED BLOOD COUNT 4.94 10^6/uL (4.35-5.55); RED CELL DISTRIBUTION WIDTH 15.7 % (11.5-14.0); SEGMENTED NEUTROPHILS % (AUTO) 52.8 % (42-78); TOTAL CELLS COUNTED % (AUTO) 100 %; WHITE BLOOD COUNT 7.7 10^3/uL (4.0-10.5)
--- NOTE | 2020-08-08 15:01 | RADIOLOGY REPORT (SQ) ---
EXAM DESCRIPTION: CT ABD/PELVIS NO ORAL OR IV IMAGES COMPLETED DATE/TIME: 08/08/2020 11:45 am REASON FOR STUDY: Left flank pain; eval stone? COMPARISON: CT abdomen pelvis 06/03/2020. CT chest 07/18/2020 TECHNIQUE: CT scan of the abdomen and pelvis performed without intravenous or oral contrast. Images reviewed with lung, soft tissue, and bone windows. Reconstructed coronal and sagittal MPR images revi ewed. All images stored on PACS. All CT scanners at this facility use dose modulation, iterative reconstruction, and/or weight based d osing when appropriate to reduce radiation dose to as low as reasonably achievable (ALARA). [facility]: Dose Right [facility]: CareDose [facility]: Dose Right [facility]: Teradose 4D [facility]: Smart [employer] RADIATION DOSE: CT Rad equipment meets quality standard of care and radiation dose reduction techniq ues were employed. CTDIvol: 20.0 mGy. DLP: 1059 mGy-cm.mGy. LIMITATIONS: Suboptimal evaluation of the vasculature and solid organs due to lack of IV contrast FINDINGS: LOWER CHEST: Right lower lobe consolidation and pleural effusion/thickening again demonstr ated. NON-CONTRASTED LIVER, SPLEEN, ADRENALS: Evaluation limited by lack of IV contrast. No identified sign ificant masses. Possible hepatic steatosis with suggestion of sparing adjacent to the gallbladder. PANCREAS: No masses. No peripancreatic inflammatory changes. GALLBLADDER: No identified stones by CT criteria. No inflammatory changes to suggest cholecystitis. RIGHT KIDNEY AND URETER: No suspicious masses. Assessment limited by lack of IV contrast. No signif icant calcifications. No hydronephrosis or hydroureter. LEFT KIDNEY AND URETER: No suspicious masses. Assessment limited by lack of IV contrast. No signifi cant calcifications. No hydronephrosis or hydroureter. AORTA AND RETROPERITONEUM: No aneurysm. No retroperitoneal masses or adenopathy. BOWEL AND PERITONEAL CAVITY: No obvious masses or inflammatory changes. No free fluid. APPENDIX: Normal. PELVIS, BLADDER, AND ABDOMINAL WALL:Prostate gland is enlarged. Urinary bladder is underdistended. BONES: No significant findings. OTHER: No other significant finding. IMPRESSION: 1. No urinary tract calculi. No hydronephrosis. 2. Right lower lobe consolidation and pleural effusion again demonstrated. 3. Enlarged prostate gland. COMMENT: Quality ID # [id number]: Final reports with documentation of one or more dose reduction techniques (e.g., Automated exposure control, adjustment of the mA and/or kV according to patient size, use of iterative reconstruction technique) TECHNICAL DOCUMENTATION: JOB ID: [id number] 2010 [employer]- All Rights Reserved Reading location - IP/workstation name: [email or web address]
[2020-08-08 15:11] LABS: ALBUMIN 3.6 g/dL (3.5-5.0); ALKALINE PHOSPHATASE 132 U/L (38-126); ANION GAP 9 (5-19); ASPARTATE AMINO TRANSFERASE 27 U/L (17-59); BILIRUBIN,DIRECT 0.3 mg/dL (0.0-0.4); BILIRUBIN,TOTAL 0.9 mg/dL (0.2-1.3); BLOOD UREA NITROGEN 9 mg/dL (7-20); CALCIUM 8.6 mg/dL (8.4-10.2); CARBON DIOXIDE 31 mmol/L (22-30); CHLORIDE 99 mmol/L (98-107); GLUCOSE 105 mg/dL (75-110); POTASSIUM 3.5 mmol/L (3.6-5.0); TOTAL PROTEIN 8.2 g/dL (6.3-8.2)
[2020-08-08 22:09] VITALS: BP 146/72
[2020-08-08] MEDS ORDERED: OXYCODONE-ACETAMINOPHEN 5-325 MG TABLET PO ONE (22:09)
--- NOTE | 2020-08-08 22:09 | ER Document Report ---
ED General - General Chief Complaint: Flank Pain Stated Complaint: FLANK PAIN Time Seen by Provider: 08/08/20 14:10 Primary Care Provider: INES MENDEZ MD [HONORARY] - Follow up as needed TRAVEL OUTSIDE OF THE [place] IN LAST 30 DAYS: No - HPI Context: Chief Complaint: [Flank pain] [This is a 45-year-old male presenting to the emergency department complaining of left-sided flank pain. Patient was just recently in the hospital for treatment of a pulmonary embolism. Patient was discharged on Eliquis which he states he has been compliant with. Patient states that the pain is worse anytime he moves or takes a deep breath. Patient denies fever, chills, dysuria. Patient was discharged from the hospital approximately 18 days ago ] History obtained from [patient] Symptoms began:[1 week ago] Onset: [Sudden] Timing: [Sudden] Quality: [Sharp] Intensity: [5 out of 5] Location: [Left flank] Radiation: [Denies] [The pain does not migrate to a new location.] Aggravating factors: Movement, deep breath Relieving factors: [none] [Denies] SOB [Denies] nausea [Denies] vomiting [Denies] sweats [Denies] fever [Denies] cough [Denies] calf or leg swelling or pain - Related Data Allergies/Adverse Reactions: No Known Allergies Allergy (Verified 07/13/20 07:26) Past Medical History - General Information source: Patient - Social History Smoking Status: Former Smoker Frequency of alcohol use: None Drug Abuse: None Family History: CAD, DM, Hyperlipidemia, Hypertension, Malignancy, Thyroid Disfunction Patient has homicidal ideation: No - Past Medical History Cardiac Medical History: Reports: Hx Congestive Heart Failure, Hx Hypercholesterolemia, Hx Hypertension, Hx Pulmonary Embolism Denies: Hx Atrial Fibrillation, Hx Coronary Artery Disease, Hx DVT, Hx Heart Attack Pulmonary Medical History: Reports: Hx COPD, Hx Sleep Apnea Denies: Hx Asthma Neurological Medical History: Denies: Hx Seizures Endocrine Medical History: Reports: Hx Diabetes Mellitus Type 2, Hx Hyperthyroidism. Denies: Hx Diabetes Mellitus Type 1, Hx Hypothyroidism Renal/ Medical History: Denies: Hx Peritoneal Dialysis GI Medical History: Reports: Hx Gastroesophageal Reflux Disease. Denies: Hx Cirrhosis, Hx Crohn's Disease, Hx Hepatitis, Hx Ulcerative Colitis Musculoskeletal Medical History: Reports Hx Arthritis, Reports Hx Gout Skin Medical History: Denies Hx Eczema, Denies Hx Psoriasis Psychiatric Medical History: Reports: Hx Anxiety, Hx Depression Traumatic Medical History: Denies: Hx Gunshot Wound, Hx Traumatic Brain Injury Infectious Medical History: Denies: Hx Hepatitis, Hx HIV Past Surgical History: Reports: Hx Abdominal Surgery, Hx Cardiac Catheterization, Hx Orthopedic Surgery - Rt knee - Immunizations Hx Diphtheria, Pertussis, Tetanus Vaccination: Yes Review of Systems - Review of Systems Notes: Review of systems as below unless otherwise stated in HPI. CONSTITUTIONAL [No] fever, [No] chills. EYES [No] eye pain. ENT [No] URI symptoms, [No] sore throat, [No] ear pain. CARDIOVASCULAR [No] chest pain, [No] palpitations, [No] edema. RESPIRATORY [No] Cough, [No] SOB, [No] wheezing. Positive pleurisy GASTROINTESTINAL [No] abdominal pain, [No] nausea, [No] Diarrhea, [No] Vomiting, [No] constipation, [No] melena, [No] rectal bleeding. GENITOURINARY [No] dysuria, [No] urinary frequency, [No] hematuria, [No] urinary urgency MUSCULOSKELETAL [No] Back pain. Positive flank pain SKIN [No] Rash. NEUROLOGIC [No] Headache, [No] recent seizures, [No] paralysis,[No] parathesias. ENDOCRINE [No] polyuria. HEMO/LYMPATIC [No] easy brusing PSYCHIATRIC [No] depression. Physical Exam - Vital signs Vitals: Temp Pulse Resp BP Pulse Ox 98.6 F 100 16 174/110 H 98 08/08/20 14:04 08/08/20 14:04 08/08/20 14:04 08/08/20 14:04 08/08/20 14:04 - Notes Notes: CONSTITUTIONAL [Vital signs reviewed, Patient appears mildly uncomfortable, Alert and oriented X 3, Normal stature.] HEAD [Atraumatic, Normocephalic.] EYES [Eyes are normal to inspection, No discharge from eyes, Extraocular muscles intact, Sclera are normal, Conjunctiva are normal.] ENT [External ears normal to inspection, Nose examination normal, Mouth normal to inspection.] NECK [Normal ROM, No jugular venous distention, No meningeal signs, ] RESPIRATORY CHEST [Chest is nontender, Breath sounds normal, No respiratory distress.] CARDIOVASCULAR [RRR, No murmurs, Normal S1 S2, No rub, No gallop.] ABDOMEN [Abdomen is nontender, No pulsatile masses, No other masses, Bowel sounds normal, No distension, No peritoneal signs, No hernias.] BACK [There is left sided CVA Tenderness to palpation, otherwise normal inspection.] UPPER EXTREMITY [Inspection normal, No cyanosis, No clubbing, No edema, LOWER EXTREMITY [Inspection normal, No cyanosis, No clubbing, No edema, No calf tenderness, NEURO [No focal motor deficits, No focal sensory deficits, Speech normal.] SKIN [Skin is warm, Skin is dry, Skin is normal color.] PSYCHIATRIC [Normal affect. ] Course - Re-evaluation Re-evalutation: 08/08/20 22:24 Since the patient was discharged from the hospital less than 2 weeks ago and has a pneumonia I am going to put him on dual antibiotic therapy. He cannot afford the Augmentin XR 2 g twice a day for 7 to 10 days even with a coupon from [employer]. As an alternative this MD is going to write for a shot of ceftriaxone now and I have written and electronically transmitted prescriptions for cefdinir and Zithromax to his pharmacy patient is getting first dose of Zithromax by mouth tonight. Hopefully this dual therapy will be sufficient to cover the patient's symptoms and help resolve the pneumonia. Patient had all the findings of the ED MSE discussed with him. All questions were answered prior to discharge. Emergency signs and symptoms, reasons to return to the emergency department discussed with patient. - Vital Signs Vital signs: Temp Pulse Resp BP Pulse Ox 98.2 F 87 18 146/72 H 98 08/08/20 22:08 08/08/20 22:08 08/08/20 22:08 08/08/20 22:08 08/08/20 22:08 - Laboratory Results Result Diagrams: 08/08/20 14:30 08/08/20 14:30 Laboratory Results Interpreted: 08/08/20 08/08/20 08/08/20 14:09 14:30 14:30 RDW 15.7 H Potassium 3.5 L Carbon Dioxide 31 H Alkaline Phosphatase 132 H Urine Protein 100 H Urine Blood MODERATE H Critical Laboratory Results Reviewed: Yes Attending or Supervising Physician who Reviewed Labs: NINO RAMIREZ IV - Blood is present in urine - Radiology Results Critical Radiology Results Reviewed: Yes Attending or Supervising Physician who Reviewed Radiology: NINO RAMIREZ IV - Right lower lobe infiltrate and effusion noted on CT abdomen pelvis. No kidney stones mentioned Discharge - Discharge Clinical Impression: Pleurisy, Flank pain Pneumonia Qualifiers: Pneumonia type: due to unspecified organism Laterality: unspecified laterality Lung location: unspecified part of lung Qualified Code(s): J18.9 - Pneumonia, unspecified organism Condition: Stable Disposition: HOME, SELF-CARE Additional Instructions: Return to the Emergency Department without delay if any worse. HOME CARE INSTRUCTIONS & INFORMATION: Thank you for choosing us for your medical needs. We hope you're satisfied with the care you received. After you leave, you must properly care for your problem and, at the same time, observe its progress. Any condition can change. Some illnesses can change rapidly over hours or days. If your condition worsens, return to the Emergency Department or see your physician promptly. ABOUT YOUR X-RAYS AND EKG'S: If you had an EKG or X-rays taken, they have been read by the Emergency Physician. The X-rays and EKG's will also be read by a Radiologist or Cake Puller within 24 hours. If discrepancies are noted, you will be notified by telephone. Please be certain the ED has a correct telephone number & address where you can be reached. Also, realize that some fractures or abnormalities do not show up on initial X-rays. If your symptoms continue, see your physician. ABOUT YOUR LABORATORY TEST: If you had laboratory tests, the results have been reviewed by the Emergency Physician. Some test results (for example cultures) may not be available for several days. You will be contacted if any test result shows you need additional treatment. Please be certain the ED has a correct telephone number and address where you can be reached. ABOUT YOUR MEDICATIONS: You will receive instructions on how to take your medicine on the prescription label you receive. Additional information may be provided by the Pharmacy. If you have questions afterwards, call the ED for cl arification or further instructions. Some prescribed medications may cause drowsiness. Do not perform tasks such as driving a car or operating machinery without consulting your Pharmacist. If you feel you need a refill of pain medication, your condition will need re-evaluation. Please do not call for a refill of any medication. ABOUT YOUR SIGNATURE: Signature of this document acknowledges to followin. Understanding that you received emergency treatment and that you may be released before al medical problems are known or treated. Please be certain the ED has a correct phone number & address where you can be reached. 2. Acknowledgement that you will arrange for follow-up care as recommended. 3. Authorization for the Emergency Physician to provide information to your follow-up Physician in order to maximize your care. AT ANY TIME, IF YOUR SYMPTOMS CHANGE SIGNIFICANTLY OR WORSEN OR YOU DEVELOP NEW SYMPTOMS, RETURN TO THE EMERGENCY DEPARTMENT IMMEDIATELY FOR RE-EVALUATION. OUR GOAL IS TO PROVIDE EXCELLENT MEDICAL CARE! WE HOPE THAT WE HAVE MET YOUR EXPECTATIONS DURING YOUR EMERGENCY DEPARTMENT VISIT AND THAT YOU FEEL YOU HAVE RECEIVED EXCELLENT CARE! Pleurisy Your chest pain has been diagnosed as pleuritis (pleurisy). This is an inflammation of the surface of the lung tissue. It can be caused by a virus or, occasionally, old scar tissue. It is painful but, for the most part, not a ser ious problem. This pain is usually made worse by deep breathing, coughing, or sudden movements of the upper body or arms. The treatment is relief of symptoms. It includes rest, antiinflammatory medication, and pain medicine. Resolution of the pain is usually rapid once antiinflammatory medication is started. Warning signs of a more serious problem include: a fever, shortness of breath, pain that radiates to your jaw, shoulders or arms, or coughing up bloody sputum. If any of these symptoms occur, call the physician at once. Pneumonia Your examination indicates that you have pneumonia. This is an infection of the lung tissue, usually caused by bacteria or a virus. Symptoms include cough, fever, shaking chills, chest pain, shortness of breath, and coughing up bloody sputum. Treatment for bacterial pneumonia includes rest, antibiotics for 10 to 14 days, increasing your clear liquid intake, a cool mist humidifier at your bedside, and fever medication. Often, a repeat chest X-ray is performed in a few weeks--even if you feel better--to ascertain whether the infection has completely resolved and no underlying lung problem is present. You should call the physician if you develop persistent vomiting, high fever that does not respond to fever medication, increasing shortness of breath, confusion, or lethargy. Also, failure to improve within two to three days is an indication for re-examination. Prescriptions: Oxycodone HCl/Acetaminophen [Percocet 5-325 mg Tablet] 1 each PO Q6HP PRN #10 tablet PRN Reason: pain Cefdinir 600 mg PO DAILY 10 Days #20 capsule Azithromycin [Zithromax 250 mg Tablet] 250 mg PO DAILY 4 Days #4 tablet Referrals: INES MENDEZ MD [HONORARY] - Follow up as needed
[2020-08-08] MEDS ORDERED: AZITHROMYCIN 250 MG TABLET PO ONE (22:15)
[2020-08-08] MEDS ORDERED: CEFTRIAXONE INJ 500 MG VIAL IM ONE (22:23)
[2020-08-08] MEDS ORDERED: LIDOCAINE 1% INJ-PF (10 MG/ML) 30 ML SDV ONE (22:27)
== END 2020-08-08 22:38 | disposition home or self-care (01) ==
LOC: ER 14:01
DX: J18.9 Pneumonia, unspecified organism (principal); R09.1 Pleurisy; R10.9 Unspecified abdominal pain; I50.9 Heart failure, unspecified; I11.0 Hypertensive heart disease with heart failure; J44.9 Chronic obstructive pulmonary disease, unspecified; E11.9 Type 2 diabetes mellitus without complications; Z87.891 Personal history of nicotine dependence; Z86.711 Personal history of pulmonary embolism; Z79.01 Long term (current) use of anticoagulants
CPT/HCPCS: 96376; 99285; 96372; 96361; 96374; 36415; 85025; 80053; 81001; 74176; J3490; J2270; J0696; J7030